=== PATIENT | male | born 1950 | race African-American/Black ===

== ENCOUNTER 2018-02-26 09:46 | Outpatient (RCR) | payer MEDICARE, BC ==
[~2018-02-26] VITALS: Ht 193 cm; Wt 113.4 kg
[2018-03-06] MEDS ORDERED: Lidocaine 4% Top Soln 50ml TOPIC ONE (10:45)
== END 2018-03-15 | disposition home or self-care (01) ==
LOC: WCC 09:46
DX: T86.821 Skin graft (allograft) (autograft) failure (principal); E11.22 Type 2 diabetes mellitus with diabetic chronic kidney disease; E11.59 Type 2 diabetes mellitus with other circulatory complications; I73.89 Other specified peripheral vascular diseases; N18.6 End stage renal disease; J44.9 Chronic obstructive pulmonary disease, unspecified; F17.200 Nicotine dependence, unspecified, uncomplicated; L97.812 Non-pressure chronic ulcer of other part of right lower leg with fat layer exposed; Z87.891 Personal history of nicotine dependence; Z99.2 Dependence on renal dialysis; Z85.46 Personal history of malignant neoplasm of prostate; I13.2 Hypertensive heart and chronic kidney disease with heart failure and with stage 5 chronic kidney disease, or end stage renal disease; I50.9 Heart failure, unspecified; F31.9 Bipolar disorder, unspecified; E11.621 Type 2 diabetes mellitus with foot ulcer
CPT/HCPCS: 11043; 11046; 82962; G0277; G0463

== ENCOUNTER 2018-02-27 09:24 | Outpatient (CLI) | payer MEDICARE, BC ==
--- NOTE | 2018-02-27 13:46 | Diagnostic Imaging Report ---
Indication: Cough Technique: 2 views of the chest Comparison: None Findings: There is bilateral diffuse interstitial and airspace edema versus infiltrates. The heart is enlarged. The pleural spaces are clear. Impression: Bilateral interstitial and airspace infiltrates versus edema Cardiomegaly
--- NOTE | 2018-02-27 16:33 | Cardiology Report ---
APPROVED REPORT EKG Measurement Heart [id number] Normal sinus rhythm Possible Left atrial enlargement Left axis deviation Abnormal ECG
== END 2018-02-27 11:24 | disposition home or self-care (01) ==
LOC: RAD 09:24
DX: J44.9 Chronic obstructive pulmonary disease, unspecified (principal); I50.9 Heart failure, unspecified
CPT/HCPCS: 71046; 93005

== ENCOUNTER 2018-03-19 14:14 | Outpatient (RCR) | payer MEDICARE, BC | END 2018-04-15 | disposition home or self-care (01) | LOC: WCC 14:14 | DX: T86.821 Skin graft (allograft) (autograft) failure (principal); E11.621 Type 2 diabetes mellitus with foot ulcer; E11.22 Type 2 diabetes mellitus with diabetic chronic kidney disease; E11.59 Type 2 diabetes mellitus with other circulatory complications; N18.6 End stage renal disease; Z99.2 Dependence on renal dialysis; Z85.46 Personal history of malignant neoplasm of prostate; G47.30 Sleep apnea, unspecified; F31.9 Bipolar disorder, unspecified; I13.2 Hypertensive heart and chronic kidney disease with heart failure and with stage 5 chronic kidney disease, or end stage renal disease; I50.9 Heart failure, unspecified; Z89.012 Acquired absence of left thumb; Z89.022 Acquired absence of left finger(s) | CPT/HCPCS: 11043; 11046; 87070; 87181; 87205; 97605 ==

== ENCOUNTER 2018-03-26 16:00 | Outpatient (CLI) | payer MEDICARE, BC ==
--- NOTE | 2018-03-26 22:15 | Consultation ---
DATE OF CONSULTATION: 03/26/2018 INFECTIOUS DISEASE CONSULTATION CONSULTING PHYSICIAN: Jaime Casey M.D. REQUESTING PHYSICIAN: Michael Raygoza D.P.M. REASON FOR CONSULTATION: Left metatarsal surgical wound infection with failing flap and possible underlying metatarsal bone osteomyelitis with infection due to Klebsiella oxytoca, Enterobacter cloacae complex, and Staph aureus, methicillin-sensitive. Recommendation for antibiotics treatment. 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 The patient did his surgery at [facility]. He was on intravenous vancomycin at the time when he had his surgery. After surgery, the patient had skin flap to close his wound and he was discharged to rehabilitation on 7 days of oral Keflex as per his report. The patient started having swelling and pain at the left metatarsal area. His wound has dehisced and started draining serosanguineous fluid with no odor, so he was seen by Dr. Raygoza in the [facility]. He underwent surgical debridement of the failed skin flap with getting good granulation tissue at the base. Culture was sent from the debridement and the result of which grew Klebsiella oxytoca, Enterobacter cloacae complex multidrug resistant, and Staph aureus methicillin-sensitive. So, Infectious Disease consultation was requested for antibiotics treatment and further management. The patient currently denied any significant pain in the left foot or drainage. He has mild swelling. But, no skin redness or erythema. No fever or chills. No other associated symptoms. REVIEW OF SYSTEMS: A 14-point of system reviewed were all negative apart from the one I mentioned above in my History and Physical. PAST MEDICAL HISTORY: Significant for diabetes type 2 with complication, diabetic nephropathy, chronic kidney disease, end-stage renal disease, on hemodialysis, and left foot osteomyelitis status post transmetatarsal amputation with skin flap failure. PAST SURGICAL HISTORY: He had a fistula placement in his left thigh and right upper arm, which failed before. He had left transmetatarsal foot amputation on 01/24/2018. MEDICATIONS: Please refer to the medical record. ALLERGIES: He has no known drug allergy. FAMILY HISTORY: Not contributory. SOCIAL HISTORY: The patient lives at home with . Unemployed. On disability. No recent drugs, tobacco, or alcohol. PHYSICAL EXAMINATION: VITAL SIGNS: Reviewed and stable. GENERAL: A middle-aged male, lying in bed, awake, alert, oriented, and not in acute distress. HEENT: Normocephalic and atraumatic. Pupils reactive to light. Moist oral mucosa. No exudate. NECK: Supple. No lymphadenopathy. CARDIOVASCULAR: Regular rate and rhythm. No murmur or gallop. LUNGS: Clear bilaterally. Diminished breathing sounds at the bases. ABDOMEN: Soft. Nontender. Nondistended. Normal bowel sounds. No hepatosplenomegaly. No ascites. EXTREMITIES: He had left foot metatarsal amputation surgical wound open with excellent granulation tissue at the base and bleeding. No pus or significant discharge. No skin erythema or swelling. Right foot has some superficial wound. LABORATORY DATA: There is no laboratories available recently. IMAGING: The patient is going to have MRI of his left foot today. Chest x-ray, which he had done on 02/27/2018 showed bilateral interstitial and airspace infiltrates versus edema with cardiomegaly. ASSESSMENT AND RECOMMENDATION: 1. Left metatarsal surgical wound infection due to MSSA, Enterobacter cloacae, and Klebsiella oxytoca. The patient had surgical debridement for SIRS control. We will start him on cefazolin after hemodialysis for two weeks average pending his MRI. We will also add ertapenem daily to cover for his Enterobacter cloacae and Klebsiella oxytoca for two weeks still. We will extend his antibiotics duration if there is evidence of underlying osteomyelitis of the metatarsal bone. Continue local wound care and dressing as per facilities planner. 2. Left metatarsal skin flap failure suspect due to infection due to previous organism I mentioned above. We will start the patient on ertapenem 0.5 gram daily IM and cefazolin 2 gram after each hemodialysis except Sunday when he gets 3 gram after his hemodialysis for two weeks average pending MRI of the left foot. 3. Possible left metatarsal bone osteomyelitis due to the above organism. The patient is going to have MRI today, which will determine whether he had any evidence of bone infection. We will plan to extend his antibiotics duration of treatment to 6 weeks if there is evidence of osteo. Continue wound VAC and local wound care as needed as per Podiatry. 4. End-stage renal disease, on hemodialysis. Nephrology is following. 5. Diabetes with complication. Recommend tight glycemic control to keep blood glucose between 80 to 130. Thank you for the consult. ID will continue to follow. Please feel free to call with any question. Jaime Casey M.D. DR: ADALBERTO JOB#: [id number] CC:
--- NOTE | 2018-03-27 11:35 | Diagnostic Imaging Report ---
Indication: 67-year-old male outpatient with recent toe amputation, swelling and pain, open wounds on both sides of the foot Technique: Coronal, axial, sagittal T1 fast spin echo and fast spin echo STIR images obtained of the foot Comparison: none Findings: Patient is status post transmetatarsal amputation. Increased STIR signal is seen in all of the distal metatarsal stumps, more striking in the first digit. There is associated T1 signal abnormality in the distal first metatarsal stump, equivocal minimal T1 signal abnormality at the most distal portions of the stump of the other digits. There is diffuse edema of the deep muscular compartment, particularly on the plantar side, less extensive edema of the skin and subcutaneous fat. A single tiny discrete fluid collection is seen in the deep hindfoot just plantar to the bones and adjacent to the flexor tendons, measures 13 x 7 x 8 mm. No other discrete fluid collections are demonstrated. The large tendons appear to be intact. There are degenerative changes of the talocalcaneal joint, with degenerative subchondral cysts within the talus. Fluid is seen surrounding several flexor tendons Impression: Postsurgical changes, as described Abnormal STIR signal in the distal metatarsal stumps. No definite associated T1 signal abnormality except in the first metatarsal stump. Findings are most likely reactive related to the recent surgery. Early osteomyelitis changes not completely excludable however. Diffuse edema, probably of the plantar deep muscular compartment. Could be reactive related to recent surgery, but could also indicate myositis. There is also much less extensive edema of the skin and subcutaneous fat, mostly on the plantar surface 13 x 7 x 8 mm fluid collection in the deep muscular compartment, as described. Suspect that this represents a small cyst or ganglion related to the adjacent tendon, but tiny abscess collection not completely excludable. Fluid in multiple flexor tendon sheaths, may reflect tenosynovitis. Degenerative changes of the talocalcaneal joint
== END 2018-03-26 18:00 | disposition home or self-care (01) ==
LOC: MRI 16:00
DX: M86.8X7 Other osteomyelitis, ankle and foot (principal)

== ENCOUNTER 2018-04-23 14:36 | Outpatient (RCR) | payer MEDICARE, BC ==
[2018-04-23] MEDS ORDERED: TAMSULOSIN HCL0.4 MG ORAL (16:45)
[2018-04-23] MEDS ORDERED: GABAPENTIN300 MG ORAL (16:45)
[2018-04-23] MEDS ORDERED: LOSARTAN POTASS50 MG ORAL (16:45)
[2018-04-23] MEDS ORDERED: CATAPRES0.2 MG ORAL (16:45)
[2018-04-23] MEDS ORDERED: PROSCAR5 MG ORAL (16:45)
[2018-04-23] MEDS ORDERED: SENSIPAR30 MG ORAL (16:45)
[2018-04-23] MEDS ORDERED: ELIQUIS5 MG PO (16:45)
[2018-04-23] MEDS ORDERED: ALLOPURINOL300 M1 ORAL (16:45)
[2018-04-23] MEDS ORDERED: RENA-VITE TABL0.8 M1 PO (16:46)
[2018-04-23] MEDS ORDERED: FUROSEMIDE80 M1 ORAL (17:02)
[2018-04-23] MEDS ORDERED: AMLODIPINE BESYL5 MG ORAL (17:02)
[2018-04-23] MEDS ORDERED: CARVEDILOL12.5 MG ORAL (17:02)
== END 2018-05-16 | disposition home or self-care (01) ==
LOC: WCC 14:36
DX: T86.821 Skin graft (allograft) (autograft) failure (principal); E11.621 Type 2 diabetes mellitus with foot ulcer; E11.22 Type 2 diabetes mellitus with diabetic chronic kidney disease; E11.59 Type 2 diabetes mellitus with other circulatory complications; M86.172 Other acute osteomyelitis, left ankle and foot; L03.116 Cellulitis of left lower limb; Z87.891 Personal history of nicotine dependence; N18.6 End stage renal disease; Z85.46 Personal history of malignant neoplasm of prostate; G47.30 Sleep apnea, unspecified; F31.9 Bipolar disorder, unspecified; I13.2 Hypertensive heart and chronic kidney disease with heart failure and with stage 5 chronic kidney disease, or end stage renal disease; I50.9 Heart failure, unspecified
CPT/HCPCS: G0463

== ENCOUNTER 2018-04-23 16:00 | Inpatient (IN) | payer MEDICARE, BC ==
[~2018-04-23] VITALS: Ht 170.2 cm; Wt 126.9 kg
--- NOTE | 2018-04-23 16:14 | NUR ---
ED Nurse Note: Pt came from MD appointment. Dr. Baron sent him due to left foot being infected. Pt was supposed to get a wound vac for his left foot today. Complaining of SOB x 1 week. A + O x4. Hx of COPD, DM and ESRD. Pt attends dialysis T, Th, and Sat. Had dialysis today. Catheter for dialysis located on the left leg. Comlpaining of 10/10 left foot pain. Non radiating.
--- NOTE | 2018-04-23 16:37 | Emergency Room Report ---
History of Present Illness General Chief Complaint: General Complaint Source: Patient Present Illness HPI 67-year-old male with end-stage renal disease diabetes presenting with left diabetic foot ulcer infection. Since that ulcer started in February. He has toes amputated at that time too. Had a wound VAC starting point, but still not getting better. He was brought from podiatry for admission for IV antibiotics. Denying any fever any chills. So that he does have chronic shortness of breath. No coughing no chest pain. Last dialysis was today Allergies: Coded Allergies: NO KNOWN DRUG ALLERGIES (Verified Allergy, Unknown, 03/06/18) Patient History Past Medical History: see triage record Past Surgical History: none Pertinent Family History: none Reviewed Nursing Documentation: PMH: Agreed; PSxH: Agreed Nursing Documentation-PMH Past Medical History: No History, Except For Hx Hypertension: Yes Hx COPD: Yes Hx Diabetes: Yes Hx Dialysis: Yes - T-Th-Sat Review of Systems All Other Systems: negative except mentioned in HPI Physical Exam Vital Signs Date Time Temp Pulse Resp B/P (MAP) Pulse Ox O2 Delivery O2 Flow Rate FiO2 04/23/18 16:14 98 25 138/73 96 Nasal Cannula 3.0 Sp02 EP Interpretation: reviewed, normal General Appearance: alert, GCS 15, non-toxic, mild distress Head: normocephalic, atraumatic Eyes: bilateral eye normal inspection, bilateral eye PERRL, bilateral eye EOMI ENT: normal ENT inspection, normal pharynx, normal voice, moist mucus membranes Neck: normal inspection, full range of motion, supple Respiratory: other - Speaking complete sentences, decreased breath sounds bilaterally mildly, no tachypnea Cardiovascular #1: tachycardia Cardiovascular #2: 2+ radial (R), 2+ radial (L) Gastrointestinal: normal inspection, non tender, soft, non-distended, no guarding Musculoskeletal: other - Left diabetic foot ulceration, status post on dictation of all toes, looks acutely infected with erythema and drainage Neurologic: normal inspection, alert, oriented x3, responsive, motor strength/ tone normal, sensory intact, normal gait, speech normal Psychiatric: normal inspection, judgement/insight normal, memory normal Skin: normal inspection, normal color, no rash, warm/dry, well hydrated, normal turgor Medical Decision Making Diagnostic Impression: Primary Impression: Diabetic foot infection Additional Impression: ESRD (end stage renal disease) ER Course 67-year-old male with left foot diabetic ulcer infection, osteomyelitis DDX: Infected diabetic foot, with history of osteomyelitis Plan: Obtain labs, ua, EKG, CXR IV antibiotics ER course: Patient has been monitored during ED stay Tachycardic around 100 Fluids held due to patient having end-stage renal disease Dr. Raygoza from podiatry is aware of patient and sent him in, also set an infectious diseases doctor will be putting in orders for antibiotics Disposition: Patient is to be admitted to [facility] D/W hospitalist Dr Beckman Please note that this Emergency Department Report was dictated using Infrascaledrama professor technology software, occasionally this can lead to erroneous entry secondary to interpretation by the dictation equipment. EKG Diagnostic Results EP Interpretation: Yes Rate:101 Rhythm: NSR ST Segments: T-wave inversions aVL only ASA given to patient: No Rhythm Strip EP Interpretation: Yes Rate: 101 Rhythm: NSR, no PVCs, no ectopy Chest X-ray CXR: Ordered: Yes 1 view Indication: sob EP interpretation: Yes Interpretation: Cardiomegaly with pulmonary vascular congestion Impression: Cardiomegaly with pulmonary vascular congestion Electronically signed by Anahi Jin MD Laboratory Tests Test 04/23/18 16:40 White Blood Count 5.6 K/UL (4.8-10.8) Red Blood Count 2.84 M/UL (4.70-6.10) L Hemoglobin 8.2 G/DL (14.2-18.0) L Hematocrit 26.4 % (42.0-52.0) L Mean Corpuscular Volume 93 FL (80-99) Mean Corpuscular Hemoglobin 29.0 PG (27.0-31.0) Mean Corpuscular Hemoglobin Concent 31.2 G/DL (32.0-36.0) L Red Cell Distribution Width 19.5 % (11.6-14.8) H Platelet Count 66 K/UL (150-450) L Mean Platelet Volume 7.6 FL (6.5-10.1) Neutrophils (%) (Auto) % (45.0-75.0) Lymphocytes (%) (Auto) % (20.0-45.0) Monocytes (%) (Auto) % (1.0-10.0) Eosinophils (%) (Auto) % (0.0-3.0) Basophils (%) (Auto) % (0.0-2.0) Differential Total Cells Counted 100 Neutrophils % (Manual) 76 % (45-75) H Lymphocytes % (Manual) 13 % (20-45) L Monocytes % (Manual) 7 % (1-10) Eosinophils % (Manual) 2 % (0-3) Basophils % (Manual) 0 % (0-2) Band Neutrophils 2 % (0-8) Platelet Estimate Decreased L Platelet Morphology Normal Polychromasia 1+ Hypochromasia 2+ Anisocytosis 1+ Sodium Level 139 MMOL/L (136-145) Potassium Level 3.6 MMOL/L (3.5-5.1) Chloride Level 100 MMOL/L (98-107) Carbon Dioxide Level 30 MMOL/L (21-32) Anion Gap 9 mmol/L (5-15) Blood Urea Nitrogen 36 mg/dL (7-18) H Creatinine 5.5 MG/DL (0.55-1.30) H Estimate Glomerular Filtration Rate 12.7 mL/min (>60) Glucose Level 151 MG/DL (74-106) H Lactic Acid Level 1.70 mmol/L (0.4-2.0) Calcium Level 9.6 MG/DL (8.5-10.1) Total Bilirubin 0.4 MG/DL (0.2-1.0) Aspartate Amino Transferase (AST) 19 U/L (15-37) Alanine Aminotransferase (ALT) 17 U/L (12-78) Alkaline Phosphatase 134 U/L (46-116) H Troponin I 0.047 ng/mL (0.000-0.056) Total Protein 7.3 G/DL (6.4-8.2) Albumin 3.1 G/DL (3.4-5.0) L Globulin 4.2 g/dL Albumin/Globulin Ratio 0.7 (1.0-2.7) L Last Vital Signs Date Time Temp Pulse Resp B/P (MAP) Pulse Ox O2 Delivery O2 Flow Rate FiO2 04/23/18 16:14 98 25 138/73 96 Nasal Cannula 3.0 Disposition: ADMITTED INPATIENT Condition: Anahi Jerry M.D. Apr 23, 2018 16:37
[2018-04-23] MEDS ORDERED: GABAPENTIN300 MG ORAL (16:45)
[2018-04-23] MEDS ORDERED: TAMSULOSIN HCL0.4 MG ORAL (16:45)
[2018-04-23] MEDS ORDERED: LOSARTAN POTASS50 MG ORAL (16:45)
[2018-04-23] MEDS ORDERED: SENSIPAR30 MG ORAL (16:45)
[2018-04-23] MEDS ORDERED: PROSCAR5 MG ORAL (16:45)
[2018-04-23] MEDS ORDERED: ALLOPURINOL300 M1 ORAL (16:45)
[2018-04-23] MEDS ORDERED: ELIQUIS5 MG PO (16:45)
[2018-04-23] MEDS ORDERED: CATAPRES0.2 MG ORAL (16:45)
[2018-04-23] MEDS ORDERED: RENA-VITE TABL0.8 M1 PO (16:46)
--- NOTE | 2018-04-23 16:46 | NUR ---
ED Nurse Note: Xray at the bedside.
[2018-04-23 16:50] VITALS: BP 138/73
[2018-04-23 16:54] LABS: HEMATOCRIT 26.4 % (42.0-52.0); HEMOGLOBIN 8.2 G/DL (14.2-18.0); MEAN CORPUSCULAR VOLUME 93 FL (80-99); PLATELET COUNT 66 K/UL (150-450); RED BLOOD COUNT 2.84 M/UL (4.70-6.10); RED CELL DISTRIBUTION WIDTH 19.5 % (11.6-14.8); WHITE BLOOD COUNT 5.6 K/UL (4.8-10.8)
--- NOTE | 2018-04-23 16:56 | NUR ---
ED Nurse Note: Notified MD that pt cannot provide urine.
--- NOTE | 2018-04-23 16:56 | NUR ---
ED Nurse Note: Pt is [place].
--- NOTE | 2018-04-23 16:57 | Diagnostic Imaging Report ---
Indication: Chest pain Comparison: 02/27/2018 A single view chest radiograph was obtained. Findings: Pulmonary vascular congestion and interstitial edema demonstrated with cardiomegaly. No pleural effusion seen. Bones are unremarkable. IMPRESSION: Congestive heart failure
[2018-04-23] MEDS ORDERED: AMLODIPINE BESYL5 MG ORAL (17:02)
[2018-04-23] MEDS ORDERED: FUROSEMIDE80 M1 ORAL (17:02)
[2018-04-23] MEDS ORDERED: CARVEDILOL12.5 MG ORAL (17:02)
[2018-04-23 17:24] LABS: ANION GAP 9 mmol/L (5-15); BLOOD UREA NITROGEN 36 mg/dL (7-18); CALCIUM 9.6 MG/DL (8.5-10.1); CARBON DIOXIDE 30 MMOL/L (21-32); CHLORIDE 100 MMOL/L (98-107); CREATININE 5.5 MG/DL (0.55-1.30); POTASSIUM 3.6 MMOL/L (3.5-5.1); SODIUM 139 MMOL/L (136-145)
[2018-04-23 17:32] LABS: ALANINE AMINOTRANSFERASE 17 U/L (12-78); ALBUMIN 3.1 G/DL (3.4-5.0); ALBUMIN/GLOBULIN RATIO 0.7 (1.0-2.7); ALKALINE PHOSPHATASE 134 U/L (46-116); ASPARTATE AMINO TRANSFERASE 19 U/L (15-37); BILIRUBIN,TOTAL 0.4 MG/DL (0.2-1.0)
[2018-04-23] MEDS ORDERED: Meropenem 1 GM in NS 55 ML IVPB SCH (18:15)
[2018-04-23] MEDS ORDERED: Meropenem 1gm vial ONE (18:21)
--- NOTE | 2018-04-23 18:37 | NUR ---
ED Nurse Note: Gave telephoen report to CLEVE Almanzar. Bed unavailable. Pt about to go down for MRI.
--- NOTE | 2018-04-23 18:47 | Consultation ---
Consult Note Consult Note INFECTIOUS DISEASE CONSULTATION CONSULTING PHYSICIAN: Jaime Casey M.D. REQUESTING PHYSICIAN: Michael Raygoza D.P.M. REASON FOR CONSULTATION: Left metatarsal surgical wound infection with Klebsiella oxytoca, Enterobacter cloacae complex, and Staph aureus, methicillin- sensitive due to failing flap and possible underlying metatarsal bone osteomyelitis, and new Achillis open tendon wound . Recommendation for antibiotics treatment. 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 The patient had his surgery at [facility]. He was on intravenous vancomycin at the time when he had his surgery. After surgery, the patient had skin flap to close his wound and he was discharged to rehabilitation on 7 days of oral Keflex as per his report. The patient started having swelling and pain at the left metatarsal area. His wound has dehisced and started draining serosanguineous fluid with no odor, so he was seen by Dr. Raygoza in the [facility]. He underwent surgical debridement of the failed skin flap with getting good granulation tissue at the base. Culture was sent from the debridement and the result of which grew Klebsiella oxytoca, Enterobacter cloacae complex multidrug resistant, and Staph aureus methicillin-sensitive. so, Infectious Disease consultation was requested for antibiotics treatment and further management. patient was started on cefazolin after hid HD for MSSA, and Ertapenem IM to cover the rest of the bacteria which grew out of his stump wound , but his insurance denied it , and he couldn't get it . other antibiotics were not an option to be used since he is HD and has significant side effects . today he was seen in wound care clinic and he was found to have new wounds on his anterior lower tibia and one in the back on his Achillis tendon, so he was sent to ED to be admitted for further evaluation , and I was consulted by Dr Wagner for antibiotics treatment and further care. The patient currently has mild pain in the left foot , no drainage or foul smell . He has mild swelling. with skin redness . No fever or chills. No other associated symptoms. REVIEW OF SYSTEMS: A 14-point of system reviewed were all negative apart from the one I mentioned above in my History and Physical. PAST MEDICAL HISTORY: Significant for diabetes type 2 with complication, diabetic nephropathy, chronic kidney disease, end-stage renal disease, on hemodialysis, and left foot osteomyelitis status post transmetatarsal amputation with skin flap failure. PAST SURGICAL HISTORY: He had a fistula placement in his left thigh and right upper arm, which failed before. He had left transmetatarsal foot amputation on 01/24/2018. MEDICATIONS: cefazoline 2 gm iv after HD . for the rest Please refer to the medical record. ALLERGIES: He has no known drug allergy. FAMILY HISTORY: Not contributory. SOCIAL HISTORY: The patient lives at home with . Unemployed. On disability. No recent drugs, tobacco, or alcohol. PHYSICAL EXAMINATION: VITAL SIGNS: Reviewed and stable. GENERAL: A middle-aged male, lying in bed, awake, alert, oriented, and not in acute distress. HEENT: Normocephalic and atraumatic. Pupils reactive to light. Moist oral mucosa. No exudate. NECK: Supple. No lymphadenopathy. CARDIOVASCULAR: Regular rate and rhythm. No murmur or gallop. LUNGS: Clear bilaterally. Diminished breathing sounds at the bases. ABDOMEN: Soft. Nontender. Nondistended. Normal bowel sounds. No hepatosplenomegaly. No ascites. EXTREMITIES: He had left foot metatarsal amputation surgical wound open with good granulation tissue at the base and small exudate. No pus or significant discharge. lower anterior tibial wounds , and posterior achillis tendon open wound mild skin erythema and swelling. Right foot has some superficial wound. LABORATORY DATA: wbc 5.6, hg 8.2, plt 66. IMAGING: MRI of his left foot on 03/27/18: Postsurgical changes, as described Abnormal STIR signal in the distal metatarsal stumps. No definite associated T1 signal abnormality except in the first metatarsal stump. Findings are most likely reactive related to the recent surgery. Early osteomyelitis changes not completely excludable however. Diffuse edema, probably of the plantar deep muscular compartment. Could be reactive related to recent surgery, but could also indicate myositis. There is also much less extensive edema of the skin and subcutaneous fat, mostly on the plantar surface 13 x 7 x 8 mm fluid collection in the deep muscular compartment, as described. Suspect that this represents a small cyst or ganglion related to the adjacent tendon, but tiny abscess collection not completely excludable. Fluid in multiple flexor tendon sheaths, may reflect tenosynovitis. Degenerative changes of the talocalcaneal joint Chest x-ray, which he had done on 02/27/2018 showed bilateral interstitial and airspace infiltrates versus edema with cardiomegaly. Assessment/Plan ASSESSMENT AND RECOMMENDATION: 1. Left metatarsal surgical wound infection due to MSSA, Enterobacter cloacae, and Klebsiella oxytoca. The patient had surgical debridement previously for source control. We will start him on vancomycin and meropenem will order MRI of the left foot to evaluate for osteomyelitis of the metatarsal bone. Continue local wound care and dressing as per concrete handler. 2. Possible left metatarsal bone osteomyelitis due to the above organism. I will order MRI today to evaluate for any evidence of bone infection. 3. left Achillis tendon open wound : continue wide spectrum antibiotics and local wound care with off loading, podiatry eval 4. End-stage renal disease, on hemodialysis. Nephrology is following. 5. Diabetes with complication. Recommend tight glycemic control to keep blood glucose between 80 to 130. 6. PVD recommend vascular eval for possible angioplasty Thank you for the consult. ID will continue to follow. Please feel free to call with any question. Jaime Casey M.D. Apr 23, 2018 18:47
--- NOTE | 2018-04-23 19:13 | NUR ---
HAND-OFF: Report given to CLEVE Perez.
--- NOTE | 2018-04-23 19:15 | NUR ---
NURSE NOTES: Report taken from CLEVE Almanzar. patient still in MRI.
--- NOTE | 2018-04-23 20:05 | NUR ---
NURSE NOTES: Patient arrived to unit with enrike Connors, via hospital bed. Patient at bedside. Patient alert and oriented. On 2L NC, gets SOB with exertion and at rest, needs head of bed elevated to aid with breathing. States having 9/10 pain, but is tolerable. Dressing c/d/i. IV c/d/i and patent. Called MD for orders, awaiting call back.
[2018-04-23] MEDS ORDERED: VANCOMYCIN IVPB ONE (22:00)
[2018-04-23] MEDS ORDERED: SODIUM CHLORIDE IVPB ONE (22:00)
[2018-04-23] MEDS: Meropenem 500mg/NS 55ml IVPB SCH ×2 (22:08)
[2018-04-23] MEDS: Albuterol/Ipratropium 3ml neb HHN SCH (23:00)
[2018-04-23] MEDS: HYDROcodone/Acetamin 10/325 tab ORAL PRN (23:35)
[2018-04-23] MEDS: Tamsulosin 0.4mg cap ORAL SCH (23:35)
[2018-04-23] MEDS: cloNIDine 0.2mg Tab ORAL SCH (23:36)
--- NOTE | 2018-04-23 23:44 | History and Physical Report ---
DATE OF ADMISSION: 04/23/2018 HISTORY OF PRESENT ILLNESS: The patient is a 67-year-old gentleman with history of type 2 diabetes, history of renal failure on dialysis, history of peripheral vascular disease, and history of osteomyelitis. He is status post surgery to his amputation to his toes in the lower extremity, and is followed by Dr. Raygoza, was sent in secondary to left metatarsal surgical wound infection with multiple organisms due to failing flap with possible underlying metatarsal bone osteomyelitis and new Achilles open tendon wound. The patient denies any fevers or chills. He did undergo the amputation on 01/24/2018 due to severely infected toes with osteomyelitis at [facility]. He was treated there with vancomycin and had a skin flap placed to close the wound and was discharged on Keflex. When he afterwards he went home he had swelling and pain with dehiscence of the wound with drainage and was seen by Dr. Raygoza at the wound care clinic. He underwent surgical debridement and cultures were sent, which revealed multiple organisms. The patient is being admitted for IV antibiotics. PAST MEDICAL HISTORY: Significant for history of renal failure on dialysis, history of osteomyelitis of his left foot, history of transmetatarsal amputation with skin flap failure, history of obstructive sleep apnea, history of type 2 diabetes mellitus, history of diabetic neuropathy, and history of heart failure. He has a fistula in the left thigh and right upper arm, which failed before. He had left metatarsal foot amputation on 01/24/2018. MEDICATIONS: Medications he is on, please see his reconciled medication list. He was receiving cefazolin after hemodialysis. ALLERGIES: No known drug allergies. FAMILY HISTORY: Noncontributory. SOCIAL HISTORY: The patient does not drink alcohol or use drugs. Does not smoke. PHYSICAL EXAMINATION: GENERAL: He is well developed and well nourished, currently in no apparent distress. VITAL SIGNS: Stable. HEENT: Head is normocephalic and atraumatic. Pupils are equal and reactive to light. Extraocular muscles are intact. Eyes are anicteric. NECK: Supple. No JVP. LUNGS: Clear. He has got decreased breath sounds at the bases. ABDOMEN: Soft. Positive bowel sounds. Nondistended and nontender. EXTREMITIES: Left foot metatarsal amputation surgical wound open with good granulation tissue at the bases and slight exudate. No pus or significant discharge. He does have lower anterior tibial wounds and posterior Achilles tendon open wound. He has some erythema and swelling to right foot. 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 LABORATORY DATA: Labs revealed a white count of 5.6, hemoglobin 8.2, hematocrit 26.4, and platelet count 66,000. Sodium 139, potassium 3.6, BUN 36, and creatinine 5.5. Glucose 151. Chest x-ray reveals CHF. EKG noted. ASSESSMENT AND PLAN: The patient is a 67-year-old gentleman with history of diabetes, renal failure, diabetic neuropathy, history of left foot wound, and possible osteo, has been admitted for IV antibiotics. He has been seen by Dr. Casey from Infectious Disease. He does have anemia and is thrombocytopenic with platelet count 66,000. We will monitor for now. In terms of his obstructive sleep apnea, he uses CPAP at night. I will ask also Pulmonary to see him. In terms of his congestive heart failure, we will get a 2-D echo, place him on a monitored bed. I have asked Dr. Perdomo from Cardiology to see him as well. The patient should be on DVT and ulcer prophylaxes. Dr. Raygoza, his bobbin collector will be following him as well. Moe Sewell M.D. DR: SHAVON JOB#: [id number] CC:
[2018-04-24 01:16] VITALS: BP 161/96
[2018-04-24] MEDS: Albuterol/Ipratropium 3ml neb HHN SCH ×6 (03:39→19:42)
[2018-04-24] MEDS: NovoLOG Insulin Flexpen SUBQ SCH ×4 (06:30→21:14)
--- NOTE | 2018-04-24 07:43 | NUR ---
HAND-OFF: Report given to CLEVE Abdi.
[2018-04-24 07:48] LABS: HEMATOCRIT 26.9 % (42.0-52.0); HEMOGLOBIN 8.2 G/DL (14.2-18.0); MEAN CORPUSCULAR VOLUME 95 FL (80-99); PLATELET COUNT 63 K/UL (150-450); RED BLOOD COUNT 2.83 M/UL (4.70-6.10); RED CELL DISTRIBUTION WIDTH 18.8 % (11.6-14.8); WHITE BLOOD COUNT 4.5 K/UL (4.8-10.8)
[2018-04-24 08:00] VITALS: BP 143/82
--- NOTE | 2018-04-24 08:00 | NUR ---
NURSE NOTES: Received report from Talib POON. On rounds, patient is awake alert and oriented x4, laying semi rich. Dyspnea with exertion noted, on 2L NC. Assessed left foot wound dressing, c/d/i. Per report from nightshift, pictures were taken. IV running Vanco. Side rails upx2, bed low and locked, call light in reach. Will continue to monitor.
[2018-04-24 08:13] LABS: ALBUMIN 2.8 G/DL (3.4-5.0); ALBUMIN/GLOBULIN RATIO 0.7 (1.0-2.7); ALKALINE PHOSPHATASE 127 U/L (46-116); ANION GAP 10 mmol/L (5-15); ASPARTATE AMINO TRANSFERASE 20 U/L (15-37); BILIRUBIN,TOTAL 0.5 MG/DL (0.2-1.0); BLOOD UREA NITROGEN 45 mg/dL (7-18); CALCIUM 8.8 MG/DL (8.5-10.1); CARBON DIOXIDE 29 MMOL/L (21-32); CHLORIDE 100 MMOL/L (98-107); CHOLESTEROL 94 MG/DL (< 200); CREATININE 6.7 MG/DL (0.55-1.30); HDL CHOLESTEROL 51 MG/DL (40-60); POTASSIUM 4.1 MMOL/L (3.5-5.1); SODIUM 139 MMOL/L (136-145); TRIGLYCERIDES 49 MG/DL (30-150)
--- NOTE | 2018-04-24 08:18 | NUR ---
NURSE NOTES: Called Dr. Sewell and informed MD that troponin is 0.057. MD aware, no further orders given at this time. Will continue to monitor.
[2018-04-24 08:20] LABS: ALANINE AMINOTRANSFERASE 6 U/L (12-78)
--- NOTE | 2018-04-24 08:45 | NUR ---
HAND-OFF: Patient transferred to med/surg 4E. Report given to Keith POON.
--- NOTE | 2018-04-24 08:46 | NUR ---
NURSE NOTES: Received patient from , patient is alert and oriented x4. On oxygen @ 2L/min via NC. Patient uses Bi pap @ night. Complains of mild generalized body pain but does not need pain meds @ this time. He will let nurse know when he needs pain med. Re-orientation given to the patient about the unit, call light, restroom use, meal time, plan of care, etc. IV intact, no s/s of infiltration. No belongings received. Skin assessment done noted with open wound on left foot stump with whitish,reddish color and left ankle (back) open wound and lower ex's open wound and noted with amputated right hand fingers, right arm with healed surgical wound and femoral dialysis access. Wound picture was taken and protocol wound care done. Bed is in lowest position and locked. Call light within reach. Will continue plan of care.
--- NOTE | 2018-04-24 09:44 | Diagnostic Imaging Report ---
Indication: Left foot infection, wounds near surgical site status post amputation, new wound on the back of the heel Technique: Axial, sagittal, coronal T1 fast spin echo and FSE STIR images of the foot Comparison: 03/26/2018. No plain radiographic comparison studies Findings: Again demonstrated is evidence of prior transmetatarsal amputation. There is increased STIR signal in the distal first metatarsal stump, with associated focal decreased T1 signal. Similar finding is seen in the distal fifth metatarsal stump. The signal abnormality of the first metatarsal appears similar to the previous exam. The signal abnormality in the fifth metatarsal appears increased, with in particular increased T1 signal abnormality and suggestion of possible erosion of the distal end. STIR signal abnormalities of the distalmost second third and fourth metatarsals are again demonstrated, without evidence of T1 signal abnormality. Gas bubbles are seen in the soft tissues adjacent to the first metatarsal stump and distal to the second metatarsal stump. Well-circumscribed foci of signal abnormality are again demonstrated in the talus, appearing similar to the prior exam. No other marrow signal abnormality is demonstrated. Edema of the muscular compartment appears similar to the previous exam. There is suggestion of increased edema of the subcutaneous fat of the stump. Previously demonstrated fluid collection medial to the distal calcaneus has decreased in size. Impression: Postsurgical changes, as described T1 and STIR signal abnormality of the distal fifth metatarsal stump appear to be increased from the previous study, with suggestion of some bone loss on the current exam. This is concerning for osteomyelitis. T1 and STIR signal abnormality of the distal first metatarsal stump, unchanged from prior exam of 03/26/2028. This may be reactive from prior surgery or could indicate acute osteomyelitis. Interim development of gas bubbles in the soft tissue stump distal to the first metatarsal bony stump is could indicate a penetrating ulcer or could indicate infection with gas-forming organism. There is also slightly increased edema of the subcutaneous fat in this region compared to prior study, may indicate progressive cellulitis changes Persistent edema of the muscular compartment, likely myositis given history of foot infection Markedly decreased small soft tissue collections medial to the calcaneus, since prior exam of March 2018
[2018-04-24] MEDS: Pantoprazole Inj IVP SCH (10:13)
[2018-04-24] MEDS: Allopurinol 100mg Tab ORAL SCH (10:13)
[2018-04-24] MEDS: Nephrovite tab (Rena-Vite) ORAL SCH (10:13)
[2018-04-24] MEDS: Docusate 100mg cap ORAL SCH ×2 (10:13→17:45)
[2018-04-24] MEDS: cloNIDine 0.2mg Tab ORAL SCH ×2 (10:13→17:46)
[2018-04-24] MEDS: Furosemide 80mg tab ORAL SCH (10:13)
--- NOTE | 2018-04-24 12:38 | Diagnostic Imaging Report ---
APPROVED REPORT CPT Code: 61455 Symptoms Comments: SOB pain. Hx of Toe Amputation both legs RIGHT LEG: Common femoral artery waveform analysis is within normal limits at rest. Color flow duplex sonography reveals patency of the superficial femoral, popliteal, and tibial arteries. There is no evidence of stenosis or occlusion within these segments. Doppler tibial artery waveform analysis is within normal limits. LEFT LEG: Common femoral artery waveform analysis is within normal limits at rest. Color flow duplex sonography reveals calcification throughout the superficial femoral artery. A moderate (50-75%) stenosis is seen in the distal superficial femoral artery. There is no evidence of occlusion within this segment. The tibioperoneal trunk not well visualized. The distal posterior and dorsalis pedis arteries are also calcified. The Doppler tibial artery waveform analysis is compatible with moderate ischemia at rest. Arterio-Venous Fistula: Imaging reveals patency of the arterio-venous fistula, the femoral artery to the greater saphenous vein, at the upper thigh level.
--- NOTE | 2018-04-24 12:46 | Consultation ---
Consult Note Assessment/Plan A/ 1) Possible osteomyelitis of left stump site 2) Cellulitis left foot 3) Vascular wounds left stump site and left posterior ankle 4) PAD on ultz 5) DM 6) COPD 7) h/o smoker P/ 1) Cont wound care 2) Abx per ID. MRI reviewed, will likely need meterman abx 3) Consult Dr Oliveira for PAD 4) Will need SNF placement for management of complex wound and medical conditions. 5) Will follow Michael Raygoza DPM Apr 24, 2018 12:46
--- NOTE | 2018-04-24 12:48 | NUR ---
RESPIRATORY NOTE:Onboard shift at 1200. Told that 0700 & 1100 Duoneb not admin to pt due to higher priority triage, report given from Bulmaro Mcgarry RRT. Will continue to monitor & move forward with orders as ordered.
--- NOTE | 2018-04-24 13:00 | NUR ---
NURSE NOTES: Patient was seen by Dr. Raygoza.
--- NOTE | 2018-04-24 13:16 | NUR ---
NURSE NOTES: wound culture done from the left foot open wound and sent it to lab.
--- NOTE | 2018-04-24 15:10 | NUR ---
NURSE NOTES: RN received venous duplex of the lower ex's result, called Dr. Sewell's office and left message.Dr. Sewell was busy with the patient,unable to answer the phone call.Rn needs some clarification about heparin since patient's PLT was 63,ooo today. Per assistant corporate secretary, Dr. Sewell will call back. Left call back number.
--- NOTE | 2018-04-24 15:15 | Consultation ---
History of Present Illness General Date patient seen: Apr 24, 2018 Time patient seen: 15:07 Chief Complaint: Shortness of breath Referring physician: Dr. Moe Sewell Reason for Consultation: Shortness of breath and [facility] Present Illness HPI 67 y/o male w/ DM, ESRD on HD, COPD, CHU, CHF, L foot/leg ulcer admitted for further treatment of diabetic foot wound. He has had increasing shortness of breath with minimal exertion x 1 month. Cannot lay flat. No wheezing. Given neb treatments and felt better afterward. Given CPAP 10 here and feels pressure is higher and feels better with it. Quit smoking several months ago was smoking 1/2 ppd x 50 years. Allergies: Coded Allergies: NO KNOWN DRUG ALLERGIES (Verified Allergy, Unknown, 03/06/18) Medication History Scheduled Allopurinol* (Allopurinol*), 300 MG ORAL DAILY, (Reported) Amlodipine Besylate* (Amlodipine Besylate*), 5 MG ORAL DAILY, (Reported) Carvedilol* (Carvedilol*), 12.5 MG ORAL DAILY, (Reported) Cinacalcet* (Sensipar*), 30 MG ORAL DAILY, (Reported) Clonidine Hcl* (Catapres*), 0.2 MG ORAL TWICE A DAY, (Reported) Finasteride* (Proscar*), 5 MG ORAL DAILY, (Reported) Furosemide* (Lasix*), 80 MG ORAL DAILY, (Reported) Gabapentin* (Gabapentin*), 300 MG ORAL THREE TIMES A DAY, (Reported) Losartan Potassium* (Losartan Potassium*), 50 MG ORAL DAILY, (Reported) Tamsulosin Hcl (Tamsulosin Hcl*), 0.4 MG ORAL BEDTIME, (Reported) Miscellaneous Medications Apixaban (Eliquis), 5 MG PO, (Reported) Folic Acid/Vitamin B Comp W-C (Mayda-Humberto Tablet), 0.8 MG PO, (Reported) Patient History History Provided By: Patient Healthcare decision maker Heaven Gabriel Resuscitation status Advanced Directive on File No Past Medical/Surgical History Past Medical/Surgical History: (1) ESRD (end stage renal disease) (2) Diabetic foot infection (3) Diabetic infection of left foot Review of Systems Constitutional: Reports: no symptoms Eye: Reports: no symptoms ENT: Reports: no symptoms Respiratory: Reports: orthopnea, shortness of breath, wheezing, GRAJEDA Cardiovascular: Reports: edema, PND Gastrointestinal: Reports: no symptoms Genitourinary: Reports: no symptoms Musculoskeletal: Reports: no symptoms Psychiatric: Reports: no symptoms Physical Exam General Appearance: no apparent distress HEENT: mucous membranes moist, PERRL Neck: supple Respiratory/Chest: decreased breath sounds, crackles/rales Cardiovascular/Chest: normal rate, regular rhythm Abdomen: non tender, soft Extremities: other - L foot/ankle wrapped. Edema in b/l LE Last 24 Hour Vital Signs Date Time Temp Pulse Resp B/P (MAP) Pulse Ox O2 Delivery O2 Flow Rate FiO2 04/24/18 11:00 2.0 28 04/24/18 11:00 2.0 28 04/24/18 10:13 143/82 04/24/18 10:13 101 143/82 04/24/18 08:00 98.7 101 22 143/82 (102) 95 04/24/18 07:00 94 Nasal Cannula 2.0 28 04/24/18 07:00 2.0 28 04/24/18 07:00 2.0 28 04/24/18 07:00 Nasal Cannula 2.0 28 04/24/18 05:30 106 24 95 Facial 35 04/24/18 03:44 102 18 Bi-pap 35 04/24/18 03:40 106 19 96 Bi-pap 35 04/24/18 03:30 100 18 92 Facial 35 04/24/18 03:30 98 18 93 Bi-pap 35 04/24/18 01:16 98.5 98 18 161/96 (117) 93 04/24/18 01:04 102 30 95 Facial 35 04/24/18 00:00 Nasal Cannula 2.0 28 04/24/18 00:00 92 Nasal Cannula 2.0 28 04/23/18 23:36 138/73 04/23/18 20:11 Nasal Cannula 2.0 04/23/18 16:50 98.1 105 20 138/73 95 Nasal Cannula 2.0 04/23/18 16:50 105 20 Nasal Cannula 2.0 95 04/23/18 16:14 98 25 138/73 96 Nasal Cannula 3.0 Intake and Output 04/23/18 04/24/18 19:00 07:00 Intake Total 400 ml Balance 400 ml Intake Oral 400 ml # Bowel Movements 2 Laboratory Tests Test 04/23/18 16:40 04/24/18 06:35 White Blood Count 5.6 K/UL (4.8-10.8) 4.5 K/UL (4.8-10.8) L Red Blood Count 2.84 M/UL (4.70-6.10) L 2.83 M/UL (4.70-6.10) L Hemoglobin 8.2 G/DL (14.2-18.0) L 8.2 G/DL (14.2-18.0) L Hematocrit 26.4 % (42.0-52.0) L 26.9 % (42.0-52.0) L Mean Corpuscular Volume 93 FL (80-99) 95 FL (80-99) Mean Corpuscular Hemoglobin 29.0 PG (27.0-31.0) 28.8 PG (27.0-31.0) Mean Corpuscular Hemoglobin Concent 31.2 G/DL (32.0-36.0) L 30.4 G/DL (32.0-36.0) L Red Cell Distribution Width 19.5 % (11.6-14.8) H 18.8 % (11.6-14.8) H Platelet Count 66 K/UL (150-450) L 63 K/UL (150-450) L Mean Platelet Volume 7.6 FL (6.5-10.1) 8.1 FL (6.5-10.1) Neutrophils (%) (Auto) % (45.0-75.0) % (45.0-75.0) Lymphocytes (%) (Auto) % (20.0-45.0) % (20.0-45.0) Monocytes (%) (Auto) % (1.0-10.0) % (1.0-10.0) Eosinophils (%) (Auto) % (0.0-3.0) % (0.0-3.0) Basophils (%) (Auto) % (0.0-2.0) % (0.0-2.0) Differential Total Cells Counted 100 100 Neutrophils % (Manual) 76 % (45-75) H 79 % (45-75) H Lymphocytes % (Manual) 13 % (20-45) L 8 % (20-45) L Monocytes % (Manual) 7 % (1-10) 9 % (1-10) Eosinophils % (Manual) 2 % (0-3) 3 % (0-3) Basophils % (Manual) 0 % (0-2) 1 % (0-2) Band Neutrophils 2 % (0-8) 0 % (0-8) Platelet Estimate Decreased L Decreased L Platelet Morphology Normal Normal Polychromasia 1+ Hypochromasia 2+ 2+ Anisocytosis 1+ 2+ Sodium Level 139 MMOL/L (136-145) 139 MMOL/L (136-145) Potassium Level 3.6 MMOL/L (3.5-5.1) 4.1 MMOL/L (3.5-5.1) Chloride Level 100 MMOL/L (98-107) 100 MMOL/L (98-107) Carbon Dioxide Level 30 MMOL/L (21-32) 29 MMOL/L (21-32) Anion Gap 9 mmol/L (5-15) 10 mmol/L (5-15) Blood Urea Nitrogen 36 mg/dL (7-18) H 45 mg/dL (7-18) H Creatinine 5.5 MG/DL (0.55-1.30) H 6.7 MG/DL (0.55-1.30) H Estimat Glomerular Filtration Rate 12.7 mL/min (>60) 10.2 mL/min (>60) Glucose Level 151 MG/DL (74-106) H 96 MG/DL (74-106) Lactic Acid Level 1.70 mmol/L (0.4-2.0) Calcium Level 9.6 MG/DL (8.5-10.1) 8.8 MG/DL (8.5-10.1) Total Bilirubin 0.4 MG/DL (0.2-1.0) 0.5 MG/DL (0.2-1.0) Aspartate Amino Transf (AST/SGOT) 19 U/L (15-37) 20 U/L (15-37) Alanine Aminotransferase (ALT/SGPT) 17 U/L (12-78) 6 U/L (12-78) L Alkaline Phosphatase 134 U/L (46-116) H 127 U/L (46-116) H Troponin I 0.047 ng/mL (0.000-0.056) 0.057 ng/mL (0.000-0.056) Total Protein 7.3 G/DL (6.4-8.2) 6.9 G/DL (6.4-8.2) Albumin 3.1 G/DL (3.4-5.0) L 2.8 G/DL (3.4-5.0) L Globulin 4.2 g/dL 4.1 g/dL Albumin/Globulin Ratio 0.7 (1.0-2.7) L 0.7 (1.0-2.7) L Hemoglobin A1c 5.9 % (4.3-6.0) Pro-B-Type Natriuretic Peptide > 46477 pg/mL (0-125) H Triglycerides Level 49 MG/DL (30-150) Cholesterol Level 94 MG/DL (< 200) LDL Cholesterol 40 mg/dL (<100) HDL Cholesterol 51 MG/DL (40-60) Cholesterol/HDL Ratio 1.8 (3.3-4.4) L Thyroid Stimulating Hormone (TSH) 1.657 uiU/mL (0.358-3.740) Microbiology Date/Time Source Procedure Growth Status 04/23/18 16:40 Blood Blood Culture - Preliminary Resulted Height (Feet): 5 Height (Inches): 7.00 Weight (Pounds): 190 Medications Current Medications Medications (Trade) Dose Ordered Sig/Oliverio Route PRN Reason Start Time Stop Time Status Last Admin Dose Admin Acetaminophen (Tylenol) 650 mg Q6H PRN ORAL Mild Pain/Temp > 100.5 04/23/18 22:30 05/23/18 22:29 Acetaminophen/ Hydrocodone Bitart (Liberty 10/325) 1 tab Q6H PRN ORAL For Pain 04/23/18 22:30 04/30/18 22:29 04/23/18 23:35 Al Hydroxide/Mg Hydroxide (Mylanta) 30 ml BID PRN ORAL Constipation 04/23/18 22:30 05/23/18 22:29 Albuterol/ Ipratropium (Albuterol/ Ipratropium) 3 ml Q4HRT HHN 04/23/18 23:00 04/28/18 22:59 04/24/18 03:39 Albuterol/ Ipratropium (Albuterol/ Ipratropium) 3 ml Q6HRT N 04/24/18 15:15 04/29/18 15:14 UNV Allopurinol (Zyloprim) 100 mg DAILY ORAL 04/24/18 09:00 05/24/18 08:59 04/24/18 10:13 Amlodipine Besylate (Norvasc) 5 mg DAILY ORAL 04/24/18 09:00 05/24/18 08:59 04/24/18 10:13 Clonidine HCl (Catapres tab) 0.2 mg BID ORAL 04/23/18 22:30 05/23/18 22:29 04/24/18 10:13 Dextrose (Dextrose 50%) 25 ml Q30M PRN IV Hypoglycemia 04/23/18 23:00 05/23/18 22:59 Dextrose (Dextrose 50%) 50 ml Q30M PRN IV Hypoglycemia 04/23/18 23:00 05/23/18 22:59 Docusate Sodium (Colace) 100 mg TWICE A DAY ORAL 04/24/18 09:00 05/24/18 08:59 04/24/18 10:13 Finasteride (Proscar) 5 mg DAILY ORAL 04/24/18 09:00 05/24/18 08:59 04/24/18 10:12 Furosemide (Lasix) 80 mg DAILY ORAL 04/24/18 09:00 05/24/18 08:59 04/24/18 10:13 Gabapentin (Neurontin) 300 mg DAILY ORAL 04/24/18 09:00 05/24/18 08:59 04/24/18 10:13 Heparin Sodium (Porcine) (Heparin 5000 units/ml) 5,000 units EVERY 12 HOURS SUBQ 04/24/18 21:00 05/24/18 20:59 Insulin Aspart (NovoLOG) BEFORE MEALS AND HS SUBQ 04/24/18 06:30 05/24/18 06:29 Meropenem 500 mg/ Sodium Chloride 55 ml @ 110 mls/hr Q24H IVPB 04/23/18 21:00 04/28/18 20:59 04/23/18 22:08 Pantoprazole (Protonix) 40 mg DAILY IVP 04/24/18 09:00 05/24/18 08:59 04/24/18 10:13 Tamsulosin HCl (Flomax) 0.4 mg BEDTIME ORAL 04/23/18 23:45 05/23/18 23:44 04/23/18 23:35 Valacyclovir HCl (Valtrex) 500 mg Q24H ORAL 04/24/18 16:00 05/24/18 15:59 Vancomycin HCl (Vanco rx to dose) 1 ea DAILY PRN MISC Per rx protocol 04/23/18 18:15 05/23/18 18:14 Vitamin B Complex/ Vit C/Folic Acid (Nephrovite) 1 tab DAILY ORAL 04/24/18 09:00 05/24/18 08:59 04/24/18 10:13 Objective Narrative CXR review with pulmonary vascular congestion Assessment/Plan Assessment/Plan Problem List: 1. Diabetic foot infection 2. Acute CHF exacerbation/pulmonary edema 3. COPD w/o obvious exacerbation 4. CHU 5. ESRD on HD 6. Hx multiple amputations Plan: Abx per ID f/u cultures Podiatric wound care/debridement as needed Monitor volumes, needs volume removed with HD Duonebs q6 Cont CPAP 10 cm H2O Tyrel Platt MD Apr 24, 2018 15:15
--- NOTE | 2018-04-24 15:21 | Cardiology Report ---
APPROVED REPORT EXAM: Two-dimensional and M-mode echocardiogram with Doppler and color Doppler. INDICATION Hypertension/HCVD M-Mode DIMENSIONS IVSd0.7 (0.7-1.1cm)Left Atrium (MM)4.8 (1.6-4.0cm) LVDd5.7 (3.5-5.6cm)Aortic Root3.3 (2.0-3.7cm) PWd1.2 (0.7-1.1cm)Aortic Cusp Exc.1.8 (1.5-2.0cm) LVDs4.2 (2.5-4.0cm) Normal left ventricular chamber size, systolic function and wall motion. Left ventricular ejection fraction estimated to be 60-65 %. Moderate left ventricular hypertrophy by 2-D. Small posterior pericardial effusion. Moderate left atrial enlargement. Mild right atrial enlargement. Right ventricular chamber size is within normal limits. Moderate aortic valve calcification with decreased cusp excursion c/w aortic stenosis. Moderately thickened mitral valve leaflets with normal excursion. Mitral annulus and aortic root calcification. Pulmonic valve not well visualized. Normal tricuspid valve structure. IVC dilated at 2.4 cm with slight physiologic collapse suggestive of increased RA pressure. A color flow and spectral Doppler study was performed and revealed: Trace aortic regurgitation. Peak aortic valve gradient of 35 mm Hg and a mean of 20 mmHg. Aortic valve area 1.5 cm2 calculated by continuity equation. Moderate mitral regurgitation. Mitral inflow velocities indicates possible pseudo normalization pattern implying moderately elevated left atrial pressure (Grade II). Mild tricuspid regurgitation. Tricuspid systolic velocities suggests peak right ventricular systolic pressure of 47 mmHg, consistent with moderate pulmonary hypertension. Pulmonic regurgitation present.
[2018-04-24] MEDS ORDERED: valACYclovir HCL 500mg tab ORAL SCH (16:00)
--- NOTE | 2018-04-24 16:04 | Cardiology Report ---
APPROVED REPORT EKG Measurement Heart [id number] Sinus tachycardia Possible Left atrial enlargement Borderline ECG
--- NOTE | 2018-04-24 16:38 | Infectious Diseases Prog Note ---
Assessment/Plan Problems: (1) Acute osteomyelitis of metatarsal bone of left foot Assessment & Plan: continue meropenem and vancomycin treatment for 6 weeks pending final cultures. continue local wound care and dressings change as per zipper slide attacher (2) Achilles tendon infection Assessment & Plan: with open wound, already on wide spectrum antibiotics coverage , continue local wound care and dressings change , podiatry is following (3) Diabetic foot infection Assessment & Plan: continue wide spectrum antibiotics , with tight glycemic control. (4) ESRD (end stage renal disease) Assessment & Plan: on HD , consult renal (5) PVD (peripheral vascular disease) Assessment & Plan: recommend vascular eval for possible angioplasty of the left leg Subjective Constitutional: Reports: no symptoms HEENT: Reports: no symptoms Respiratory: Reports: no symptoms Breasts: Reports: no symptoms Cardiovascular: Reports: no symptoms Gastrointestinal/Abdominal: Reports: no symptoms Genitourinary: Reports: no symptoms Neurologic: Reports: weakness Psychiatric: Reports: no symptoms Skin: Reports: ulcer Endocrine: Reports: no symptoms Hematologic: Reports: no symptoms Musculoskeletal: Reports: pain, swelling Allergies: Coded Allergies: NO KNOWN DRUG ALLERGIES (Verified Allergy, Unknown, 03/06/18) Subjective he was feeling better after started on antibiotics with less pain and swelling in his left foot Objective Vital Signs Last 24 Hour Vital Signs Date Time Temp Pulse Resp B/P (MAP) Pulse Ox O2 Delivery O2 Flow Rate FiO2 04/24/18 15:40 96 14 100 Nasal Cannula 2.0 28 04/24/18 15:30 90 14 100 Nasal Cannula 2.0 28 04/24/18 11:00 2.0 28 04/24/18 11:00 2.0 28 04/24/18 10:13 143/82 04/24/18 10:13 101 143/82 04/24/18 08:00 98.7 101 22 143/82 (102) 95 04/24/18 07:00 94 Nasal Cannula 2.0 28 04/24/18 07:00 2.0 28 04/24/18 07:00 2.0 28 04/24/18 07:00 Nasal Cannula 2.0 28 04/24/18 05:30 106 24 95 Facial 35 04/24/18 03:44 102 18 Bi-pap 35 04/24/18 03:40 106 19 96 Bi-pap 35 04/24/18 03:30 100 18 92 Facial 35 04/24/18 03:30 98 18 93 Bi-pap 35 04/24/18 01:16 98.5 98 18 161/96 (117) 93 04/24/18 01:04 102 30 95 Facial 35 04/24/18 00:00 Nasal Cannula 2.0 28 04/24/18 00:00 92 Nasal Cannula 2.0 28 04/23/18 23:36 138/73 04/23/18 20:11 Nasal Cannula 2.0 04/23/18 16:50 98.1 105 20 138/73 95 Nasal Cannula 2.0 04/23/18 16:50 105 20 Nasal Cannula 2.0 95 Height (Feet): 5 Height (Inches): 7.00 Weight (Pounds): 232 General Appearance: WD/WN, no acute distress HEENT: normocephalic, atraumatic, anicteric, mucous membranes moist, PERRL, EOMI, pharynx normal, supple, no JVD Respiratory/Chest: chest wall non-tender, lungs clear, normal breath sounds, no respiratory distress, no accessory muscle use Cardiovascular: normal peripheral pulses, normal rate, regular rhythm, no gallop/murmur, no JVD Abdomen: normal bowel sounds, soft, non tender, no organomegaly, non distended , no mass, no scars Genitourinary: normal external genitalia Extremities: no cyanosis, no clubbing Skin: no rash, no lesions, ulcers Neurologic/Psychiatric: alert, oriented x 3, responsive Lymphatic: no neck adenopathy, no groin adenopathy Musculoskeletal: no effusion, other - left achillis tendon exposed Microbiology Date/Time Source Procedure Growth Status 04/23/18 16:40 Blood Blood Culture - Preliminary Resulted Laboratory Tests Test 04/23/18 16:40 04/24/18 06:35 White Blood Count 5.6 K/UL (4.8-10.8) 4.5 K/UL (4.8-10.8) L Red Blood Count 2.84 M/UL (4.70-6.10) L 2.83 M/UL (4.70-6.10) L Hemoglobin 8.2 G/DL (14.2-18.0) L 8.2 G/DL (14.2-18.0) L Hematocrit 26.4 % (42.0-52.0) L 26.9 % (42.0-52.0) L Mean Corpuscular Volume 93 FL (80-99) 95 FL (80-99) Mean Corpuscular Hemoglobin 29.0 PG (27.0-31.0) 28.8 PG (27.0-31.0) Mean Corpuscular Hemoglobin Concent 31.2 G/DL (32.0-36.0) L 30.4 G/DL (32.0-36.0) L Red Cell Distribution Width 19.5 % (11.6-14.8) H 18.8 % (11.6-14.8) H Platelet Count 66 K/UL (150-450) L 63 K/UL (150-450) L Mean Platelet Volume 7.6 FL (6.5-10.1) 8.1 FL (6.5-10.1) Neutrophils (%) (Auto) % (45.0-75.0) % (45.0-75.0) Lymphocytes (%) (Auto) % (20.0-45.0) % (20.0-45.0) Monocytes (%) (Auto) % (1.0-10.0) % (1.0-10.0) Eosinophils (%) (Auto) % (0.0-3.0) % (0.0-3.0) Basophils (%) (Auto) % (0.0-2.0) % (0.0-2.0) Differential Total Cells Counted 100 100 Neutrophils % (Manual) 76 % (45-75) H 79 % (45-75) H Lymphocytes % (Manual) 13 % (20-45) L 8 % (20-45) L Monocytes % (Manual) 7 % (1-10) 9 % (1-10) Eosinophils % (Manual) 2 % (0-3) 3 % (0-3) Basophils % (Manual) 0 % (0-2) 1 % (0-2) Band Neutrophils 2 % (0-8) 0 % (0-8) Platelet Estimate Decreased L Decreased L Platelet Morphology Normal Normal Polychromasia 1+ Hypochromasia 2+ 2+ Anisocytosis 1+ 2+ Sodium Level 139 MMOL/L (136-145) 139 MMOL/L (136-145) Potassium Level 3.6 MMOL/L (3.5-5.1) 4.1 MMOL/L (3.5-5.1) Chloride Level 100 MMOL/L (98-107) 100 MMOL/L (98-107) Carbon Dioxide Level 30 MMOL/L (21-32) 29 MMOL/L (21-32) Anion Gap 9 mmol/L (5-15) 10 mmol/L (5-15) Blood Urea Nitrogen 36 mg/dL (7-18) H 45 mg/dL (7-18) H Creatinine 5.5 MG/DL (0.55-1.30) H 6.7 MG/DL (0.55-1.30) H Estimat Glomerular Filtration Rate 12.7 mL/min (>60) 10.2 mL/min (>60) Glucose Level 151 MG/DL (74-106) H 96 MG/DL (74-106) Lactic Acid Level 1.70 mmol/L (0.4-2.0) Calcium Level 9.6 MG/DL (8.5-10.1) 8.8 MG/DL (8.5-10.1) Total Bilirubin 0.4 MG/DL (0.2-1.0) 0.5 MG/DL (0.2-1.0) Aspartate Amino Transf (AST/SGOT) 19 U/L (15-37) 20 U/L (15-37) Alanine Aminotransferase (ALT/SGPT) 17 U/L (12-78) 6 U/L (12-78) L Alkaline Phosphatase 134 U/L (46-116) H 127 U/L (46-116) H Troponin I 0.047 ng/mL (0.000-0.056) 0.057 ng/mL (0.000-0.056) Total Protein 7.3 G/DL (6.4-8.2) 6.9 G/DL (6.4-8.2) Albumin 3.1 G/DL (3.4-5.0) L 2.8 G/DL (3.4-5.0) L Globulin 4.2 g/dL 4.1 g/dL Albumin/Globulin Ratio 0.7 (1.0-2.7) L 0.7 (1.0-2.7) L Hemoglobin A1c 5.9 % (4.3-6.0) Pro-B-Type Natriuretic Peptide > 32350 pg/mL (0-125) H Triglycerides Level 49 MG/DL (30-150) Cholesterol Level 94 MG/DL (< 200) LDL Cholesterol 40 mg/dL (<100) HDL Cholesterol 51 MG/DL (40-60) Cholesterol/HDL Ratio 1.8 (3.3-4.4) L Thyroid Stimulating Hormone (TSH) 1.657 uiU/mL (0.358-3.740) Current Medications Medications (Trade) Dose Ordered Sig/Oliverio Route PRN Reason Start Time Stop Time Status Last Admin Dose Admin Acetaminophen (Tylenol) 650 mg Q6H PRN ORAL Mild Pain/Temp > 100.5 04/23/18 22:30 05/23/18 22:29 Acetaminophen/ Hydrocodone Bitart ([place] 10/325) 1 tab Q6H PRN ORAL For Pain 04/23/18 22:30 04/30/18 22:29 04/23/18 23:35 Al Hydroxide/Mg Hydroxide (Mylanta) 30 ml BID PRN ORAL Constipation 04/23/18 22:30 05/23/18 22:29 Albuterol/ Ipratropium (Albuterol/ Ipratropium) 3 ml Q6HRT HHN 04/24/18 15:15 04/29/18 15:14 04/24/18 15:53 Allopurinol (Zyloprim) 100 mg DAILY ORAL 04/24/18 09:00 05/24/18 08:59 04/24/18 10:13 Amlodipine Besylate (Norvasc) 5 mg DAILY ORAL 04/24/18 09:00 05/24/18 08:59 04/24/18 10:13 Clonidine HCl (Catapres tab) 0.2 mg BID ORAL 04/23/18 22:30 05/23/18 22:29 04/24/18 10:13 Dextrose (Dextrose 50%) 25 ml Q30M PRN IV Hypoglycemia 04/23/18 23:00 05/23/18 22:59 Dextrose (Dextrose 50%) 50 ml Q30M PRN IV Hypoglycemia 04/23/18 23:00 05/23/18 22:59 Docusate Sodium (Colace) 100 mg TWICE A DAY ORAL 04/24/18 09:00 2/8/19 08:59 04/24/18 10:13 Finasteride (Proscar) 5 mg DAILY ORAL 04/24/18 09:00 05/24/18 08:59 04/24/18 10:12 Furosemide (Lasix) 80 mg DAILY ORAL 04/24/18 09:00 05/24/18 08:59 04/24/18 10:13 Gabapentin (Neurontin) 300 mg DAILY ORAL 04/24/18 09:00 05/24/18 08:59 04/24/18 10:13 Heparin Sodium (Porcine) (Heparin 5000 units/ml) 5,000 units EVERY 12 HOURS SUBQ 04/24/18 21:00 05/24/18 20:59 Insulin Aspart (NovoLOG) BEFORE MEALS AND HS SUBQ 04/24/18 06:30 05/24/18 06:29 Meropenem 500 mg/ Sodium Chloride 55 ml @ 110 mls/hr Q24H IVPB 04/23/18 21:00 04/28/18 20:59 04/23/18 22:08 Pantoprazole (Protonix) 40 mg DAILY IVP 04/24/18 09:00 05/24/18 08:59 04/24/18 10:13 Tamsulosin HCl (Flomax) 0.4 mg BEDTIME ORAL 04/23/18 23:45 05/23/18 23:44 04/23/18 23:35 Valacyclovir HCl (Valtrex) 500 mg Q24H ORAL 04/24/18 16:00 05/24/18 15:59 Vancomycin HCl (Vanco rx to dose) 1 ea DAILY PRN MISC Per rx protocol 04/23/18 18:15 05/23/18 18:14 Vitamin B Complex/ Vit C/Folic Acid (Nephrovite) 1 tab DAILY ORAL 04/24/18 09:00 05/24/18 08:59 04/24/18 10:13 Jaime Casey M.D. Apr 24, 2018 16:38
[2018-04-24] MEDS: HYDROcodone/Acetamin 10/325 tab ORAL PRN (17:49)
--- NOTE | 2018-04-24 18:23 | Cardiac Electrophysiology PN ---
Subjective Subjective [id number] Objective Last 24 Hour Vital Signs Date Time Temp Pulse Resp B/P (MAP) Pulse Ox O2 Delivery O2 Flow Rate FiO2 04/24/18 17:46 153/94 04/24/18 15:40 96 14 100 Nasal Cannula 2.0 28 04/24/18 15:30 90 14 100 Nasal Cannula 2.0 28 04/24/18 11:00 2.0 28 04/24/18 11:00 2.0 28 04/24/18 10:13 143/82 04/24/18 10:13 101 143/82 04/24/18 08:00 98.7 101 22 143/82 (102) 95 04/24/18 07:00 94 Nasal Cannula 2.0 28 04/24/18 07:00 2.0 28 04/24/18 07:00 2.0 28 04/24/18 07:00 Nasal Cannula 2.0 28 04/24/18 05:30 106 24 95 Facial 35 04/24/18 03:44 102 18 Bi-pap 35 04/24/18 03:40 106 19 96 Bi-pap 35 04/24/18 03:30 100 18 92 Facial 35 04/24/18 03:30 98 18 93 Bi-pap 35 04/24/18 01:16 98.5 98 18 161/96 (117) 93 04/24/18 01:04 102 30 95 Facial 35 04/24/18 00:00 Nasal Cannula 2.0 28 04/24/18 00:00 92 Nasal Cannula 2.0 28 04/23/18 23:36 138/73 04/23/18 20:11 Nasal Cannula 2.0 Intake and Output 04/23/18 04/24/18 19:00 07:00 Intake Total 400 ml Balance 400 ml Intake Oral 400 ml # Bowel Movements 2 Laboratory Tests Test 04/24/18 06:35 White Blood Count 4.5 K/UL (4.8-10.8) L Red Blood Count 2.83 M/UL (4.70-6.10) L Hemoglobin 8.2 G/DL (14.2-18.0) L Hematocrit 26.9 % (42.0-52.0) L Mean Corpuscular Volume 95 FL (80-99) Mean Corpuscular Hemoglobin 28.8 PG (27.0-31.0) Mean Corpuscular Hemoglobin Concent 30.4 G/DL (32.0-36.0) L Red Cell Distribution Width 18.8 % (11.6-14.8) H Platelet Count 63 K/UL (150-450) L Mean Platelet Volume 8.1 FL (6.5-10.1) Neutrophils (%) (Auto) % (45.0-75.0) Lymphocytes (%) (Auto) % (20.0-45.0) Monocytes (%) (Auto) % (1.0-10.0) Eosinophils (%) (Auto) % (0.0-3.0) Basophils (%) (Auto) % (0.0-2.0) Differential Total Cells Counted 100 Neutrophils % (Manual) 79 % (45-75) H Lymphocytes % (Manual) 8 % (20-45) L Monocytes % (Manual) 9 % (1-10) Eosinophils % (Manual) 3 % (0-3) Basophils % (Manual) 1 % (0-2) Band Neutrophils 0 % (0-8) Platelet Estimate Decreased L Platelet Morphology Normal Hypochromasia 2+ Anisocytosis 2+ Sodium Level 139 MMOL/L (136-145) Potassium Level 4.1 MMOL/L (3.5-5.1) Chloride Level 100 MMOL/L (98-107) Carbon Dioxide Level 29 MMOL/L (21-32) Anion Gap 10 mmol/L (5-15) Blood Urea Nitrogen 45 mg/dL (7-18) H Creatinine 6.7 MG/DL (0.55-1.30) H Estimat Glomerular Filtration Rate 10.2 mL/min (>60) Glucose Level 96 MG/DL (74-106) Hemoglobin A1c 5.9 % (4.3-6.0) Calcium Level 8.8 MG/DL (8.5-10.1) Total Bilirubin 0.5 MG/DL (0.2-1.0) Aspartate Amino Transf (AST/SGOT) 20 U/L (15-37) Alanine Aminotransferase (ALT/SGPT) 6 U/L (12-78) L Alkaline Phosphatase 127 U/L (46-116) H Troponin I 0.057 ng/mL (0.000-0.056) Pro-B-Type Natriuretic Peptide > 17856 pg/mL (0-125) H Total Protein 6.9 G/DL (6.4-8.2) Albumin 2.8 G/DL (3.4-5.0) L Globulin 4.1 g/dL Albumin/Globulin Ratio 0.7 (1.0-2.7) L Triglycerides Level 49 MG/DL (30-150) Cholesterol Level 94 MG/DL (< 200) LDL Cholesterol 40 mg/dL (<100) HDL Cholesterol 51 MG/DL (40-60) Cholesterol/HDL Ratio 1.8 (3.3-4.4) L Thyroid Stimulating Hormone (TSH) 1.657 uiU/mL (0.358-3.740) Microbiology Date/Time Source Procedure Growth Status 04/23/18 16:40 Blood Blood Culture - Preliminary Resulted Shelton Perdomo MD Apr 24, 2018 18:23
--- NOTE | 2018-04-24 18:35 | Consultation ---
Consult Note Assessment/Plan CHART REVIEWED HD ORDERS ENTERED FULL NOTE WILL BE DICTATED Johan Harper MD Apr 24, 2018 18:35
[2018-04-24] MEDS ORDERED: Heparin Sod 1000 units/ml 10ml IV PRN (19:00)
--- NOTE | 2018-04-24 19:10 | NUR ---
NURSE NOTES: RN collected urine and sent it to lab and called [facility] for the dialysis for tomorrow. Awaiting for call from ironworker foreman nurse. Will endorse to the next shift to follow up.
--- NOTE | 2018-04-24 19:41 | NUR ---
HAND-OFF: Report given to Jovon POON.
--- NOTE | 2018-04-24 19:41 | NUR ---
HAND-OFF: Report given to Jovon POON.
--- NOTE | 2018-04-24 19:42 | NUR ---
NURSE NOTES: Received patient in no apparent distress. NC 2L is on, no s/s of respiratory distress noted. Dressing on left foot dry and intact. IV site patent and intact. Bed in lowest position. Call light within reach. Will continue to monitor.
[2018-04-24 20:00] VITALS: BP 128/73
--- NOTE | 2018-04-24 20:06 | NUR ---
NURSE NOTES: RN called Dr. Sewell and relayed venous duplex results of lower ex's and decreased PLT of 63,000. Dr. Sewell said " It is ok to give heparin SQ." Do VQ scan tomorrow. RN verified of heparin injection if he wants to put parameter but he said it is ok to give now.
--- NOTE | 2018-04-24 20:30 | Consultation ---
DATE OF CONSULTATION: 04/24/2018 CONSULTING PHYSICIAN: Michael Raygoza D.P.M. REFERRING PHYSICIAN: Moe Sewell M.D. REASON FOR CONSULTATION: Ischemic ulcers and cellulitis, left foot. HISTORY OF PRESENT ILLNESS: The patient is well known to my service from admissions to [facility] and followup at [facility], presented yesterday to the [facility] with increasing pain, edema, and maceration to his wound. The patient is unable to get the prescribed antibiotics due to insurance reasons and was referred to the emergency room for continued care and proper antibiotic course. PAST MEDICAL HISTORY: Significant for chronic obstructive pulmonary disease, diabetes mellitus, end-stage renal disease, and peripheral arterial disease. ALLERGIES: He has no known drug allergies. MEDICATIONS: Per MAR and include gabapentin, Valtrex, heparin for DVT prophylaxis, meropenem, and vancomycin. FAMILY HISTORY: Noncontributory. SOCIAL HISTORY: Noncontributory. The patient lives at home and has extensive history of smoking. REVIEW OF SYSTEMS: HEENT: The patient denies any headaches, blurred vision, or ringing in the ears. CARDIOVASCULAR: The patient denies any chest pain or shortness of breath. GENITOURINARY: The patient denies any urgency, frequency, burning upon urination, or hematuria. GASTROINTESTINAL: The patient denies any constipation, diarrhea, or blood in stool. PHYSICAL EXAMINATION: VITAL SIGNS: Temperature is 98.7, pulse rate is 101, respirations 20, blood pressure is 143/82, and saturating 95% on room air. LOWER EXTREMITIES: Vascular, nonpalpable pedal pulses noted bilaterally. Feet are equally warm. There is pitting edema noted bilaterally. No cyanosis is noted. DERMATOLOGICAL: There is full-thickness ulcerations noted on the left distal stump site, granular base, macerated edges. No purulence. Mild serous drainage is noted. No malodor. There is a full-thickness ulceration noted on the posterior aspect of the left ankle with exposed Achilles. No signs of acute infection are noted there. No purulence. No malodor. There is a superficial ulceration on the dorsal left aspect of the left foot. Again, no signs of acute infection noted. Right foot is unremarkable. NEUROLOGICAL: Protective threshold is absent. MUSCULOSKELETAL: The patient has a left transmetatarsal amputation. The patient is wheelchair bound. No other gross deformities are noted. LABORATORY DATA: White blood cell count is 4.5, hemoglobin and hematocrit 8.2 and 26.9, and platelet count is 63. Potassium is 4.1, BUN is 45, creatinine is 6.7, and glucose is 96. Hemoglobin A1c is 5.9. Albumin is 2.8. Wound cultures are pending. MRI of the left foot shows possible osteomyelitis of the left fifth metatarsal stump and the first metatarsal stump. There is no indication of possible gas in the tissues clinically as possibly indicated by the MRI. Arterial studies for bilateral lower extremities show that there is a calcification in the superficial femoral artery that is about 50 to 75% stenotic. ASSESSMENT: 1. Possible osteomyelitis of the left stump site. 2. Cellulitis, left foot. 3. Vascular wounds of the left stump site and left posterior ankle. 4. Peripheral arterial disease. 5. Diabetes mellitus. 6. COPD. 7. History of extensive smoking. PLAN: 1. Continue wound care with cleansing the wound with normal saline, applying Adaptic, and applying dry dressing daily. 2. Antibiotics per Infectious Disease. MRI reviewed and likely will need long-term antibiotics. 3. Consult Dr. Oliveira for peripheral arterial disease. 4. Will need SNF placement for management of complex wound and medical conditions. 5. We will follow. Thank you for the courtesy of this consultation. Michael Raygoza D.P.M. DR: MARTA JOB#: [id number] CC:
--- NOTE | 2018-04-24 20:30 | Consultation ---
DATE OF CONSULTATION: 04/24/2018 CARDIOLOGY CONSULTATION CONSULTING PHYSICIAN: Shelton Perdomo M.D. REFERRING PHYSICIAN: Moe Sewell M.D. REASON FOR CONSULTATION: Hypertension, congestive heart failure. HISTORY OF PRESENT ILLNESS: The patient is a 67-year-old gentleman with history of hypertension, diabetes, end-stage renal disease, on hemodialysis, peripheral vascular disease, history of osteomyelitis, underwent amputation of his toes of lower extremity and is followed by Dr. Raygoza. The patient was sent for left metatarsal surgical wound infection with a failing flap with possible underlying metatarsal osteomyelitis and new Achilles open tendon wound. The patient underwent amputation on January 24, 2018, of severely infected toes at [facility]. The patient was admitted and Cardiology consultation was requested for further evaluation and management of congestive heart failure. REVIEW OF SYSTEMS: Negative other than what is mentioned in the history of present illness. PAST MEDICAL HISTORY: 1. Hypertension. 2. Diabetes. 3. Congestive heart failure. 4. Diabetic foot ulcer. 5. Obstructive sleep apnea. 6. Osteomyelitis. 7. Renal failure, on dialysis. 8. Status post metatarsal amputation in January 2018. 9. AV fistula in the left thigh and right upper arm. MEDICATIONS: Per reconciliation. ALLERGIES: He has no known drug allergies. FAMILY HISTORY: Noncontributory. SOCIAL HISTORY: Does not smoke or drink alcohol. PHYSICAL EXAMINATION: VITAL SIGNS: Blood pressure is 153/94, pulse 96, respirations 14, temperature is 98.7. HEAD AND NECK: Showed no JVD. LUNGS: Decreased breath sounds. CARDIOVASCULAR: Shows regular S1 and S2 with no gallop. ABDOMEN: Soft. EXTREMITIES: Status post multiple amputations, 2+ lower extremity edema. LABORATORY DATA: White count 4.5, hemoglobin 8.7, hematocrit 27, platelet count of 163,000. Sodium 139, potassium 4.1, BUN of 45, creatinine 6.7. Troponin 0.047 and 0.057. BNP is more than 35,000. ASSESSMENT AND PLAN: 1. Congestive heart failure. BNP of more than 35,000. The patient is already on hemodialysis. We will get an echocardiogram for further evaluation and management. It could be due to diastolic dysfunction and volume overload. 2. Troponin elevation. Troponin of 0.057. First troponin was negative at 0.047. It could be due to renal failure. The patient does not have any chest pain. Repeat troponin and get an echocardiogram. Repeat EKG in the morning. 3. Hypertension. The patient is on hemodialysis, on Norvasc 5 mg daily and Lasix 80 mg p.o. daily. The patient is also on clonidine 0.2 mg b.i.d. 4. Lower extremity cellulitis, on meropenem and vancomycin. 5. Morbid obesity. 6. Peripheral vascular disease. Thank you very much for allowing me to participate in the care of this patient. Please do not hesitate to contact me for any questions regarding my evaluation. Shelton Perdomo M.D. DR: Fide JOB#: [id number] CC:
[2018-04-24] MEDS: Tamsulosin 0.4mg cap ORAL SCH (21:09)
[2018-04-24] MEDS: Meropenem 500mg/NS 55ml IVPB SCH ×2 (21:10)
[2018-04-24] MEDS: Heparin 5000 units/ml inj SUBQ SCH (21:11)
--- NOTE | 2018-04-24 21:43 | General Progress Note ---
Assessment/Plan Assessment/Plan cellulitis osteo myosisits renal failure on dialysis ho chf ho ermias thrombocytopenia abx per ID podiatry fup wound care che3ck LE areterial and venous studies dialysis depending pulmonary fup cards fup check echo monior platelets dvt and ulcer prohylaxis Subjective Allergies: Coded Allergies: NO KNOWN DRUG ALLERGIES (Verified Allergy, Unknown, 03/06/18) Subjective above noted Objective Last 24 Hour Vital Signs Date Time Temp Pulse Resp B/P (MAP) Pulse Ox O2 Delivery O2 Flow Rate FiO2 04/24/18 20:00 98.6 96 20 128/73 (91) 98 04/24/18 19:52 95 20 99 Nasal Cannula 2.0 28 04/24/18 19:42 93 Nasal Cannula 2.0 28 04/24/18 19:42 Nasal Cannula 2.0 28 04/24/18 19:42 96 20 93 Nasal Cannula 2.0 28 04/24/18 17:46 153/94 04/24/18 15:40 96 14 100 Nasal Cannula 2.0 28 04/24/18 15:30 90 14 100 Nasal Cannula 2.0 28 04/24/18 11:00 2.0 28 04/24/18 11:00 2.0 28 04/24/18 10:13 143/82 04/24/18 10:13 101 143/82 04/24/18 08:00 98.7 101 22 143/82 (102) 95 04/24/18 07:00 94 Nasal Cannula 2.0 28 04/24/18 07:00 2.0 28 04/24/18 07:00 2.0 28 04/24/18 07:00 Nasal Cannula 2.0 28 04/24/18 05:30 106 24 95 Facial 35 04/24/18 03:44 102 18 Bi-pap 35 04/24/18 03:40 106 19 96 Bi-pap 35 04/24/18 03:30 100 18 92 Facial 35 04/24/18 03:30 98 18 93 Bi-pap 35 04/24/18 01:16 98.5 98 18 161/96 (117) 93 04/24/18 01:04 102 30 95 Facial 35 04/24/18 00:00 Nasal Cannula 2.0 28 04/24/18 00:00 92 Nasal Cannula 2.0 28 04/23/18 23:36 138/73 Intake and Output 1/8/19 1/9/19 19:00 07:00 Intake Total 400 ml Balance 400 ml Intake Oral 400 ml # Bowel Movements 2 Laboratory Tests 04/24/18 06:35: White Blood Count 4.5L, Red Blood Count 2.83L, Hemoglobin 8.2L, Hematocrit 26.9L , Mean Corpuscular Volume 95, Mean Corpuscular Hemoglobin 28.8, Mean Corpuscular Hemoglobin Concent 30.4L, Red Cell Distribution Width 18.8H, Platelet Count 63L, Mean Platelet Volume 8.1, Neutrophils (%) (Auto) , Lymphocytes (%) (Auto) , Monocytes (%) (Auto) , Eosinophils (%) (Auto) , Basophils (%) (Auto) , Differential Total Cells Counted 100, Neutrophils % ( Manual) 79H, Lymphocytes % (Manual) 8L, Monocytes % (Manual) 9, Eosinophils % ( Manual) 3, Basophils % (Manual) 1, Band Neutrophils 0, Platelet Estimate DecreasedL, Platelet Morphology Normal, Hypochromasia 2+, Anisocytosis 2+, Sodium Level 139, Potassium Level 4.1, Chloride Level 100, Carbon Dioxide Level 29, Anion Gap 10, Blood Urea Nitrogen 45H, Creatinine 6.7H, Estimat Glomerular Filtration Rate 10.2, Glucose Level 96, Hemoglobin A1c 5.9, Calcium Level 8.8, Total Bilirubin 0.5, Aspartate Amino Transf (AST/SGOT) 20, Alanine Aminotransferase (ALT/SGPT) 6L, Alkaline Phosphatase 127H, Troponin I 0.057H, Pro-B-Type Natriuretic Peptide > 30619T, Total Protein 6.9, Albumin 2.8L, Globulin 4.1, Albumin/Globulin Ratio 0.7L, Triglycerides Level 49, Cholesterol Level 94, LDL Cholesterol 40, HDL Cholesterol 51, Cholesterol/HDL Ratio 1.8L, Thyroid Stimulating Hormone (TSH) 1.657 04/24/18 18:40: Random Vancomycin Level 17.0 Height (Feet): 5 Height (Inches): 7.00 Weight (Pounds): 232 General Appearance: WD/WN, no apparent distress Neck: supple Cardiovascular: normal rate Respiratory/Chest: lungs clear Abdomen: soft Objective left loer extremity dressing intact clean no bleeding Moe Sewell MD Apr 24, 2018 21:43
--- NOTE | 2018-04-24 22:40 | NUR ---
NURSE NOTES: Call and left message to Dr. Platt regarding result of Venous Duplex scan.
--- NOTE | 2018-04-24 23:20 | NUR ---
RESPIRATORY NOTE: Alet/awake pt placed on CPAP for nightly use. Pt on CPAP 10, 30% w/ a facial mask. Foam tape applied on pt's nosebridge/cheeks/chin to prevent any irritations. Skin intact, no redness/breakdowns noted prior to placing mask. There is no red outlet in the room, addressed the issue to bedside RN, Jovon & discussed pt safety. There is no available room right now w/ a red outlet where this pt can move in to. Bedside RN said he'll monitor pt frequently. Pt denies SOB/distress at this time. Will continue plan of care.
[2018-04-25] VITALS: BP 132/77
[2018-04-25] MEDS: Albuterol/Ipratropium 3ml neb HHN SCH ×4 (01:19→19:56)
[2018-04-25 04:00] VITALS: BP 138/78
[2018-04-25] MEDS: HYDROcodone/Acetamin 10/325 tab ORAL PRN ×2 (04:46→16:56)
[2018-04-25] MEDS: NovoLOG Insulin Flexpen SUBQ SCH ×4 (06:12→21:02)
--- NOTE | 2018-04-25 06:44 | NUR ---
NURSE NOTES: Call and left message to Dr. Leroy Prado regarding result of Venous Duplex. Patient has acute DVT on left femoral vein which patient has AV shunt area. Waiting a call back.
--- NOTE | 2018-04-25 06:50 | NUR ---
NURSE NOTES: Call and left message to Ramon who work at [facility] hemodialysis regarding result of Venous Duplex scan. Ramon said that he will inform the RN who care the patient.
--- NOTE | 2018-04-25 07:30 | NUR ---
HAND-OFF: Report given to Casie POON.
[2018-04-25 08:00] VITALS: BP 152/95
--- NOTE | 2018-04-25 08:18 | NUR ---
NURSE NOTES: Patient alert x4, on NC 2 Lit, and patient also have CBAP, for night time; no sign of distress and shortness of breath. Left foot dressing dry and intact. Patient ambulatory with assist. IV salen lock, patent. Patient had Venous Duplex exam, on 04/24/18 the result is: Lef leg Acute DVT, left superrficial femoral to popliteal veins calf veins not well visualized, Right Lef: within normal limits; PM nurseKeon called Johan Green with the scheduled dialysis and also Dr Donato FREDERICK with the dialysis. Bed at lowest position, side rails up, call light within reach.
[2018-04-25] MEDS: Nephrovite tab (Rena-Vite) ORAL SCH (09:23)
[2018-04-25] MEDS: Allopurinol 100mg Tab ORAL SCH (09:23)
[2018-04-25] MEDS: Docusate 100mg cap ORAL SCH ×2 (09:23→19:01)
[2018-04-25] MEDS: cloNIDine 0.2mg Tab ORAL SCH ×2 (09:23→19:01)
[2018-04-25] MEDS: Pantoprazole Inj IVP SCH (09:24)
[2018-04-25] MEDS: Furosemide 80mg tab ORAL SCH (09:24)
[2018-04-25] MEDS: Heparin 5000 units/ml inj SUBQ SCH (09:31)
--- NOTE | 2018-04-25 11:55 | Diagnostic Imaging Report ---
Indications: Shortness of breath Technique: IV administration 5.5 mCi 99m technetium macroaggregated albumin. Images obtained over the lungs in multiple projections. Previously, patient inhaled 40 mCi aerosolized 99M technetium DTPA. Images obtained over the lungs in multiple projections Comparison: Reference made to chest radiograph dated 04/23/2018 Findings: Slightly heterogeneous perfusion, without evidence of focal segmental or subsegmental perfusion defect. The aerosol scan is more heterogeneous, and no evidence of perfusion aerosol mismatch demonstrated Impression: Findings deemed low probability for pulmonary embolus
--- NOTE | 2018-04-25 13:06 | Nephrology Progress Note ---
Assessment/Plan Problem List: (1) ESRD (end stage renal disease) (2) Diabetic infection of left foot (3) Acute DVT (deep venous thrombosis) Assessment: LLE (4) PVD (peripheral vascular disease) Plan HD today abxs DC Lasix add nephrovite anticoagulation Discussed with Dr Sewell Subjective Subjective feels ok Objective Objective Last 24 Hour Vital Signs Date Time Temp Pulse Resp B/P (MAP) Pulse Ox O2 Delivery O2 Flow Rate FiO2 04/25/18 09:24 104 152/95 04/25/18 09:23 152/95 04/25/18 09:00 Nasal Cannula 2.0 04/25/18 08:00 97.0 104 20 152/95 (114) 95 04/25/18 07:01 98 20 100 Nasal Cannula 2.0 28 04/25/18 06:53 Nasal Cannula 2.0 28 04/25/18 06:53 98 Nasal Cannula 2.0 28 04/25/18 06:51 101 20 98 Nasal Cannula 2.0 28 04/25/18 04:00 98.6 96 20 138/78 (98) 98 04/25/18 03:16 103 22 97 Facial 30 04/25/18 01:29 97 20 98 Nasal Cannula 2.0 28 04/25/18 01:19 95 22 95 Nasal Cannula 2.0 28 04/25/18 00:00 98.7 94 20 132/77 (95) 99 04/24/18 23:15 94 21 99 Facial 30 04/24/18 21:00 Nasal Cannula 2.0 04/24/18 20:00 98.6 96 20 128/73 (91) 98 04/24/18 19:52 95 20 99 Nasal Cannula 2.0 28 04/24/18 19:42 93 Nasal Cannula 2.0 28 04/24/18 19:42 Nasal Cannula 2.0 28 04/24/18 19:42 96 20 93 Nasal Cannula 2.0 28 04/24/18 17:46 153/94 04/24/18 15:40 96 14 100 Nasal Cannula 2.0 28 04/24/18 15:30 90 14 100 Nasal Cannula 2.0 28 Intake and Output 04/24/18 04/25/18 18:59 06:59 Intake Total 960 ml 855 ml Balance 960 ml 855 ml Intake Oral 960 ml 800 ml IV Total 55 ml # Voids 3 2 # Bowel Movements 1 Laboratory Tests 04/24/18 18:40: Random Vancomycin Level 17.0 Height (Feet): 5 Height (Inches): 7.00 Weight (Pounds): 232 Cardiovascular: normal rate Respiratory/Chest: lungs clear Extremities: severe edema - Johan De MD Apr 25, 2018 13:06
[2018-04-25 13:48] LABS: HEMATOCRIT 26.6 % (42.0-52.0); MEAN CORPUSCULAR VOLUME 94 FL (80-99); PLATELET COUNT 58 K/UL (150-450); RED BLOOD COUNT 2.83 M/UL (4.70-6.10); RED CELL DISTRIBUTION WIDTH 19.4 % (11.6-14.8); WHITE BLOOD COUNT 5.8 K/UL (4.8-10.8)
--- NOTE | 2018-04-25 13:51 | Consultation ---
Consult Note Assessment/Plan #[id number] Johan Harper MD Apr 25, 2018 13:51
[2018-04-25 14:02] LABS: ANION GAP 12 mmol/L (5-15); BLOOD UREA NITROGEN 57 mg/dL (7-18); CALCIUM 9.2 MG/DL (8.5-10.1); CARBON DIOXIDE 26 MMOL/L (21-32); CHLORIDE 98 MMOL/L (98-107); CREATININE 7.1 MG/DL (0.55-1.30); POTASSIUM 4.7 MMOL/L (3.5-5.1); SODIUM 136 MMOL/L (136-145)
--- NOTE | 2018-04-25 14:26 | Consultation ---
History of Present Illness General Date patient seen: Apr 25, 2018 Chief Complaint: General Complaint Referring physician: Dr. Moe Sewell Reason for Consultation: Shortness of breath and CHU Present Illness Allergies: Coded Allergies: NO KNOWN DRUG ALLERGIES (Verified Allergy, Unknown, 03/06/18) Medication History Scheduled Allopurinol* (Allopurinol*), 300 MG ORAL DAILY, (Reported) Amlodipine Besylate* (Amlodipine Besylate*), 5 MG ORAL DAILY, (Reported) Carvedilol* (Carvedilol*), 12.5 MG ORAL DAILY, (Reported) Cinacalcet* (Sensipar*), 30 MG ORAL DAILY, (Reported) Clonidine Hcl* (Catapres*), 0.2 MG ORAL TWICE A DAY, (Reported) Finasteride* (Proscar*), 5 MG ORAL DAILY, (Reported) Furosemide* (Lasix*), 80 MG ORAL DAILY, (Reported) Gabapentin* (Gabapentin*), 300 MG ORAL THREE TIMES A DAY, (Reported) Losartan Potassium* (Losartan Potassium*), 50 MG ORAL DAILY, (Reported) Tamsulosin Hcl (Tamsulosin Hcl*), 0.4 MG ORAL BEDTIME, (Reported) Miscellaneous Medications Apixaban (Eliquis), 5 MG PO, (Reported) Folic Acid/Vitamin B Comp W-C (Mayda-Humberto Tablet), 0.8 MG PO, (Reported) Patient History Healthcare decision maker Heaven Gabriel Resuscitation status Advanced Directive on File No Physical Exam Last 24 Hour Vital Signs Date Time Temp Pulse Resp B/P (MAP) Pulse Ox O2 Delivery O2 Flow Rate FiO2 04/25/18 13:25 100 20 100 Nasal Cannula 2.0 28 04/25/18 13:17 99 22 100 Nasal Cannula 2.0 28 04/25/18 13:13 Nasal Cannula 2.0 04/25/18 09:24 104 152/95 04/25/18 09:23 152/95 04/25/18 09:00 Nasal Cannula 2.0 04/25/18 08:00 97.0 104 20 152/95 (114) 95 04/25/18 07:01 98 20 100 Nasal Cannula 2.0 28 04/25/18 06:53 Nasal Cannula 2.0 28 04/25/18 06:53 98 Nasal Cannula 2.0 28 04/25/18 06:51 101 20 98 Nasal Cannula 2.0 28 04/25/18 04:00 98.6 96 20 138/78 (98) 98 04/25/18 03:16 103 22 97 Facial 30 04/25/18 01:29 97 20 98 Nasal Cannula 2.0 28 04/25/18 01:19 95 22 95 Nasal Cannula 2.0 28 04/25/18 00:00 98.7 94 20 132/77 (95) 99 04/24/18 23:15 94 21 99 Facial 30 04/24/18 21:00 Nasal Cannula 2.0 04/24/18 20:00 98.6 96 20 128/73 (91) 98 04/24/18 19:52 95 20 99 Nasal Cannula 2.0 28 04/24/18 19:42 93 Nasal Cannula 2.0 28 04/24/18 19:42 Nasal Cannula 2.0 28 04/24/18 19:42 96 20 93 Nasal Cannula 2.0 28 04/24/18 17:46 153/94 04/24/18 15:40 96 14 100 Nasal Cannula 2.0 28 04/24/18 15:30 90 14 100 Nasal Cannula 2.0 28 Intake and Output 04/24/18 04/25/18 18:59 06:59 Intake Total 960 ml 855 ml Balance 960 ml 855 ml Intake Oral 960 ml 800 ml IV Total 55 ml # Voids 3 2 # Bowel Movements 1 Laboratory Tests Test 04/24/18 18:40 04/25/18 13:40 Random Vancomycin Level 17.0 ug/mL White Blood Count 5.8 K/UL (4.8-10.8) Red Blood Count 2.83 M/UL (4.70-6.10) L Hemoglobin 8.0 G/DL (14.2-18.0) L Hematocrit 26.6 % (42.0-52.0) L Mean Corpuscular Volume 94 FL (80-99) Mean Corpuscular Hemoglobin 28.2 PG (27.0-31.0) Mean Corpuscular Hemoglobin Concent 30.0 G/DL (32.0-36.0) L Red Cell Distribution Width 19.4 % (11.6-14.8) H Platelet Count 58 K/UL (150-450) L Mean Platelet Volume 7.8 FL (6.5-10.1) Neutrophils (%) (Auto) % (45.0-75.0) Lymphocytes (%) (Auto) % (20.0-45.0) Monocytes (%) (Auto) % (1.0-10.0) Eosinophils (%) (Auto) % (0.0-3.0) Basophils (%) (Auto) % (0.0-2.0) Neutrophils % (Manual) Pending Lymphocytes % (Manual) Pending Platelet Estimate Pending Platelet Morphology Pending Sodium Level 136 MMOL/L (136-145) Potassium Level 4.7 MMOL/L (3.5-5.1) Chloride Level 98 MMOL/L (98-107) Carbon Dioxide Level 26 MMOL/L (21-32) Anion Gap 12 mmol/L (5-15) Blood Urea Nitrogen 57 mg/dL (7-18) H Creatinine 7.1 MG/DL (0.55-1.30) H Estimat Glomerular Filtration Rate 9.5 mL/min (>60) Glucose Level 124 MG/DL (74-106) H Calcium Level 9.2 MG/DL (8.5-10.1) Height (Feet): 5 Height (Inches): 7.00 Weight (Pounds): 232 Medications Current Medications Medications (Trade) Dose Ordered Sig/Oliverio Route PRN Reason Start Time Stop Time Status Last Admin Dose Admin Acetaminophen (Tylenol) 650 mg Q6H PRN ORAL Mild Pain/Temp > 100.5 04/23/18 22:30 05/23/18 22:29 Acetaminophen/ Hydrocodone Bitart (Rembert 10/325) 1 tab Q6H PRN ORAL For Pain 04/23/18 22:30 04/30/18 22:29 04/25/18 04:46 Al Hydroxide/Mg Hydroxide (Mylanta) 30 ml BID PRN ORAL Constipation 04/23/18 22:30 05/23/18 22:29 Albuterol/ Ipratropium (Albuterol/ Ipratropium) 3 ml Q6HRT HHN 04/24/18 15:15 04/29/18 15:14 04/25/18 13:17 Allopurinol (Zyloprim) 100 mg DAILY ORAL 04/24/18 09:00 05/24/18 08:59 04/25/18 09:23 Amlodipine Besylate (Norvasc) 5 mg DAILY ORAL 04/24/18 09:00 05/24/18 08:59 04/25/18 09:24 Clonidine HCl (Catapres tab) 0.2 mg BID ORAL 04/23/18 22:30 05/23/18 22:29 04/25/18 09:23 Dextrose (Dextrose 50%) 25 ml Q30M PRN IV Hypoglycemia 04/23/18 23:00 05/23/18 22:59 Dextrose (Dextrose 50%) 50 ml Q30M PRN IV Hypoglycemia 04/23/18 23:00 05/23/18 22:59 Docusate Sodium (Colace) 100 mg TWICE A DAY ORAL 04/24/18 09:00 05/24/18 08:59 04/25/18 09:23 Finasteride (Proscar) 5 mg DAILY ORAL 04/24/18 09:00 05/24/18 08:59 04/25/18 09:24 Gabapentin (Neurontin) 300 mg DAILY ORAL 04/24/18 09:00 05/24/18 08:59 04/25/18 09:23 Heparin Sodium (Porcine) (Heparin 5000 units/ml) 4,000 units ONCE IV 04/25/18 18:00 04/25/18 19:00 Heparin Sodium (Porcine) (Heparin Sod 1000 units/ml 10ml) 500 unit ONCE PRN IV FOR HD USE ONLY 04/24/18 19:00 04/26/18 23:59 Heparin Sodium/ Dextrose 500 ml @ 37.888 mls/ hr ADJUST PER PROTOCOL IV 04/25/18 18:00 05/25/18 17:59 Insulin Aspart (NovoLOG) BEFORE MEALS AND HS SUBQ 04/24/18 06:30 05/24/18 06:29 04/24/18 21:14 Lidocaine HCl (Xylocaine 1% 30ml) 30 ml NOW PRN INJ Radiology Procedure 04/25/18 14:30 04/28/18 14:16 UNV Meropenem 500 mg/ Sodium Chloride 55 ml @ 110 mls/hr Q24H IVPB 04/23/18 21:00 04/28/18 20:59 04/24/18 21:10 Pantoprazole (Protonix) 40 mg DAILY IVP 04/24/18 09:00 05/24/18 08:59 04/25/18 09:24 Sodium Chloride 1,000 ml @ 500 mls/hr Q2H PRN IVLG sbp<90 during hd 04/24/18 18:32 04/26/18 23:59 Tamsulosin HCl (Flomax) 0.4 mg BEDTIME ORAL 04/23/18 23:45 05/23/18 23:44 04/24/18 21:09 Valacyclovir HCl (Valtrex) 500 mg Q24H ORAL 04/24/18 16:00 05/24/18 15:59 04/24/18 17:45 Vancomycin HCl (Vanco rx to dose) 1 ea DAILY PRN MISC Per rx protocol 04/23/18 18:15 05/23/18 18:14 Vancomycin HCl 1 gm/Dextrose 275 ml @ 183.708 mls/hr ONCE IVPB 04/25/18 21:00 04/25/18 23:00 Vitamin B Complex/ Vit C/Folic Acid (Nephrovite) 1 tab DAILY ORAL 04/26/18 09:00 05/26/18 08:59 Assessment/Plan Assessment/Plan Hematology Consultation Chief Complaint: Shortness of breath Referring physician: Dr. Sewell Reason for Consultation: Dvt, low plt, anemia DOS: 04/25/18 HPI 67 y/o male w/ DM, ESRD on HD, COPD, CHU, CHF, L foot/leg ulcer admitted for further treatment of diabetic foot wound. He has had increasing shortness of breath with minimal exertion x 1 month. Cannot lay flat. No wheezing. Given neb treatments and felt better afterward. Given CPAP 10 here and feels pressure is higher and feels better with it. Quit smoking several months ago was smoking 1/2 ppd x 50 years. Has been seen by several consultants and heme now consulted given dvt study results and anemia and low platelets. Allergies: Coded Allergies: NO KNOWN DRUG ALLERGIES (Verified Allergy, Unknown, 03/06/18) Meds Scheduled Allopurinol* (Allopurinol*), 300 MG ORAL DAILY, (Reported) Amlodipine Besylate* (Amlodipine Besylate*), 5 MG ORAL DAILY, (Reported) Carvedilol* (Carvedilol*), 12.5 MG ORAL DAILY, (Reported) Cinacalcet* (Sensipar*), 30 MG ORAL DAILY, (Reported) Clonidine Hcl* (Catapres*), 0.2 MG ORAL TWICE A DAY, (Reported) Finasteride* (Proscar*), 5 MG ORAL DAILY, (Reported) Furosemide* (Lasix*), 80 MG ORAL DAILY, (Reported) Gabapentin* (Gabapentin*), 300 MG ORAL THREE TIMES A DAY, (Reported) Losartan Potassium* (Losartan Potassium*), 50 MG ORAL DAILY, (Reported) Tamsulosin Hcl (Tamsulosin Hcl*), 0.4 MG ORAL BEDTIME, (Reported) Miscellaneous Medications Apixaban (Eliquis), 5 MG PO, (Reported) Folic Acid/Vitamin B Comp W-C (Mayda-Humberto Tablet), 0.8 MG PO, (Reported) History Provided By: Patient Healthcare decision maker Heaven Gabriel Resuscitation status Advanced Directive on File No Past Medical/Surgical History: (1) ESRD (end stage renal disease) (2) Diabetic foot infection (3) Diabetic infection of left foot ROS Constitutional: Reports: no symptoms Eye: Reports: no symptoms ENT: Reports: no symptoms Respiratory: Reports: orthopnea, shortness of breath, wheezing, [id number] Cardiovascular: Reports: edema, PND Gastrointestinal: Reports: no symptoms Genitourinary: Reports: no symptoms Musculoskeletal: Reports: no symptoms Psychiatric: Reports: no symptoms Physical Exam General Appearance: no apparent distress HEENT: mucous membranes moist, PERRL Neck: supple Respiratory/Chest: decreased breath sounds, crackles/rales Cardiovascular/Chest: normal rate, regular rhythm Abdomen: non tender, soft Extremities: other - L foot/ankle wrapped. Edema in b/l LE Last 24 Hour Vital Signs Date Time Temp Pulse Resp B/P (MAP) Pulse Ox O2 Delivery O2 Flow Rate FiO2 04/25/18 13:25 100 20 100 Nasal Cannula 2.0 28 04/25/18 13:17 99 22 100 Nasal Cannula 2.0 28 04/25/18 13:13 Nasal Cannula 2.0 04/25/18 09:24 104 152/95 04/25/18 09:23 152/95 04/25/18 09:00 Nasal Cannula 2.0 04/25/18 08:00 97.0 104 20 152/95 (114) 95 04/25/18 07:01 98 20 100 Nasal Cannula 2.0 28 04/25/18 06:53 Nasal Cannula 2.0 28 04/25/18 06:53 98 Nasal Cannula 2.0 28 04/25/18 06:51 101 20 98 Nasal Cannula 2.0 28 04/25/18 04:00 98.6 96 20 138/78 (98) 98 04/25/18 03:16 103 22 97 Facial 30 04/25/18 01:29 97 20 98 Nasal Cannula 2.0 28 04/25/18 01:19 95 22 95 Nasal Cannula 2.0 28 04/25/18 00:00 98.7 94 20 132/77 (95) 99 04/24/18 23:15 94 21 99 Facial 30 04/24/18 21:00 Nasal Cannula 2.0 04/24/18 20:00 98.6 96 20 128/73 (91) 98 04/24/18 19:52 95 20 99 Nasal Cannula 2.0 28 04/24/18 19:42 93 Nasal Cannula 2.0 28 04/24/18 19:42 Nasal Cannula 2.0 28 04/24/18 19:42 96 20 93 Nasal Cannula 2.0 28 04/24/18 17:46 153/94 04/24/18 15:40 96 14 100 Nasal Cannula 2.0 28 04/24/18 15:30 90 14 100 Nasal Cannula 2.0 28 Intake and Output 04/23/18 04/24/18 19:00 07:00 Intake Total 400 ml Balance 400 ml Intake Oral 400 ml # Bowel Movements 2 Laboratory Tests Test 04/23/18 16:40 04/24/18 06:35 White Blood Count 5.6 K/UL (4.8-10.8) 4.5 K/UL (4.8-10.8) L Red Blood Count 2.84 M/UL (4.70-6.10) L 2.83 M/UL (4.70-6.10) L Hemoglobin 8.2 G/DL (14.2-18.0) L 8.2 G/DL (14.2-18.0) L Hematocrit 26.4 % (42.0-52.0) L 26.9 % (42.0-52.0) L Mean Corpuscular Volume 93 FL (80-99) 95 FL (80-99) Mean Corpuscular Hemoglobin 29.0 PG (27.0-31.0) 28.8 PG (27.0-31.0) Mean Corpuscular Hemoglobin Concent 31.2 G/DL (32.0-36.0) L 30.4 G/DL (32.0-36.0) L Red Cell Distribution Width 19.5 % (11.6-14.8) H 18.8 % (11.6-14.8) H Platelet Count 66 K/UL (150-450) L 63 K/UL (150-450) L Mean Platelet Volume 7.6 FL (6.5-10.1) 8.1 FL (6.5-10.1) Neutrophils (%) (Auto) % (45.0-75.0) % (45.0-75.0) Lymphocytes (%) (Auto) % (20.0-45.0) % (20.0-45.0) Monocytes (%) (Auto) % (1.0-10.0) % (1.0-10.0) Eosinophils (%) (Auto) % (0.0-3.0) % (0.0-3.0) Basophils (%) (Auto) % (0.0-2.0) % (0.0-2.0) Differential Total Cells Counted 100 100 Neutrophils % (Manual) 76 % (45-75) H 79 % (45-75) H Lymphocytes % (Manual) 13 % (20-45) L 8 % (20-45) L Monocytes % (Manual) 7 % (1-10) 9 % (1-10) Eosinophils % (Manual) 2 % (0-3) 3 % (0-3) Basophils % (Manual) 0 % (0-2) 1 % (0-2) Band Neutrophils 2 % (0-8) 0 % (0-8) Platelet Estimate Decreased L Decreased L Platelet Morphology Normal Normal Polychromasia 1+ Hypochromasia 2+ 2+ Anisocytosis 1+ 2+ Sodium Level 139 MMOL/L (136-145) 139 MMOL/L (136-145) Potassium Level 3.6 MMOL/L (3.5-5.1) 4.1 MMOL/L (3.5-5.1) Chloride Level 100 MMOL/L (98-107) 100 MMOL/L (98-107) Carbon Dioxide Level 30 MMOL/L (21-32) 29 MMOL/L (21-32) Anion Gap 9 mmol/L (5-15) 10 mmol/L (5-15) Blood Urea Nitrogen 36 mg/dL (7-18) H 45 mg/dL (7-18) H Creatinine 5.5 MG/DL (0.55-1.30) H 6.7 MG/DL (0.55-1.30) H Estimat Glomerular Filtration Rate 12.7 mL/min (>60) 10.2 mL/min (>60) Glucose Level 151 MG/DL (74-106) H 96 MG/DL (74-106) Lactic Acid Level 1.70 mmol/L (0.4-2.0) Calcium Level 9.6 MG/DL (8.5-10.1) 8.8 MG/DL (8.5-10.1) Total Bilirubin 0.4 MG/DL (0.2-1.0) 0.5 MG/DL (0.2-1.0) Aspartate Amino Transf (AST/SGOT) 19 U/L (15-37) 20 U/L (15-37) Alanine Aminotransferase (ALT/SGPT) 17 U/L (12-78) 6 U/L (12-78) L Alkaline Phosphatase 134 U/L (46-116) H 127 U/L (46-116) H Troponin I 0.047 ng/mL (0.000-0.056) 0.057 ng/mL (0.000-0.056) Total Protein 7.3 G/DL (6.4-8.2) 6.9 G/DL (6.4-8.2) Albumin 3.1 G/DL (3.4-5.0) L 2.8 G/DL (3.4-5.0) L Globulin 4.2 g/dL 4.1 g/dL Albumin/Globulin Ratio 0.7 (1.0-2.7) L 0.7 (1.0-2.7) L Hemoglobin A1c 5.9 % (4.3-6.0) Pro-B-Type Natriuretic Peptide > 57886 pg/mL (0-125) H Triglycerides Level 49 MG/DL (30-150) Cholesterol Level 94 MG/DL (< 200) LDL Cholesterol 40 mg/dL (<100) HDL Cholesterol 51 MG/DL (40-60) Cholesterol/HDL Ratio 1.8 (3.3-4.4) L Thyroid Stimulating Hormone (TSH) 1.657 uiU/mL (0.358-3.740) Microbiology Date/Time Source Procedure Growth Status 04/23/18 16:40 Blood Blood Culture - Preliminary Resulted Height (Feet): 5 Height (Inches): 7.00 Weight (Pounds): 190 Medications Current Medications Medications (Trade) Dose Ordered Sig/Oliverio Route PRN Reason Start Time Stop Time Status Last Admin Dose Admin Acetaminophen (Tylenol) 650 mg Q6H PRN ORAL Mild Pain/Temp > 100.5 04/23/18 22:30 05/23/18 22:29 Acetaminophen/ Hydrocodone Bitart (Rembert 10/325) 1 tab Q6H PRN ORAL For Pain 04/23/18 22:30 04/30/18 22:29 04/23/18 23:35 Al Hydroxide/Mg Hydroxide (Mylanta) 30 ml BID PRN ORAL Constipation 04/23/18 22:30 05/23/18 22:29 Albuterol/ Ipratropium (Albuterol/ Ipratropium) 3 ml Q4HRT N 04/23/18 23:00 04/28/18 22:59 04/24/18 03:39 Albuterol/ Ipratropium (Albuterol/ Ipratropium) 3 ml Q6HRT N 04/24/18 15:15 04/29/18 15:14 UNV Allopurinol (Zyloprim) 100 mg DAILY ORAL 04/24/18 09:00 05/24/18 08:59 04/24/18 10:13 Amlodipine Besylate (Norvasc) 5 mg DAILY ORAL 04/24/18 09:00 05/24/18 08:59 04/24/18 10:13 Clonidine HCl (Catapres tab) 0.2 mg BID ORAL 04/23/18 22:30 05/23/18 22:29 04/24/18 10:13 Dextrose (Dextrose 50%) 25 ml Q30M PRN IV Hypoglycemia 04/23/18 23:00 05/23/18 22:59 Dextrose (Dextrose 50%) 50 ml Q30M PRN IV Hypoglycemia 04/23/18 23:00 05/23/18 22:59 Docusate Sodium (Colace) 100 mg TWICE A DAY ORAL 04/24/18 09:00 05/24/18 08:59 04/24/18 10:13 Finasteride (Proscar) 5 mg DAILY ORAL 04/24/18 09:00 05/24/18 08:59 04/24/18 10:12 Furosemide (Lasix) 80 mg DAILY ORAL 04/24/18 09:00 05/24/18 08:59 04/24/18 10:13 Gabapentin (Neurontin) 300 mg DAILY ORAL 04/24/18 09:00 05/24/18 08:59 04/24/18 10:13 Heparin Sodium (Porcine) (Heparin 5000 units/ml) 5,000 units EVERY 12 HOURS SUBQ 04/24/18 21:00 05/24/18 20:59 Insulin Aspart (NovoLOG) BEFORE MEALS AND HS SUBQ 04/24/18 06:30 05/24/18 06:29 Meropenem 500 mg/ Sodium Chloride 55 ml @ 110 mls/hr Q24H IVPB 04/23/18 21:00 04/28/18 20:59 04/23/18 22:08 Pantoprazole (Protonix) 40 mg DAILY IVP 04/24/18 09:00 05/24/18 08:59 04/24/18 10:13 Tamsulosin HCl (Flomax) 0.4 mg BEDTIME ORAL 04/23/18 23:45 05/23/18 23:44 04/23/18 23:35 Valacyclovir HCl (Valtrex) 500 mg Q24H ORAL 04/24/18 16:00 05/24/18 15:59 Vancomycin HCl (Vanco rx to dose) 1 ea DAILY PRN MISC Per rx protocol 04/23/18 18:15 05/23/18 18:14 Vitamin B Complex/ Vit C/Folic Acid (Nephrovite) 1 tab DAILY ORAL 04/24/18 09:00 05/24/18 08:59 04/24/18 10:13 Objective Narrative CXR review with pulmonary vascular congestion Assessment/Plan Assessment/Plan Problem List: # DVT of the deep veins superficial and politeal of the left leg --> VQ scan shows low probability of dvt --> remains with anemia and low platelets therefore contraindication for anticoagulation --> RECOMMEND Ivc filter if okay with primary physician # Anemia of chronic disease --> obtain workup, results have been ordered with ferritin tibc, esr, crp --> hgb goal >7, transfuse as needed --> peripheral smear to be reviewed # Thrombocytopenia -- plt goal >20k, transfuse as required --> plt trend in the 66k-->63k-->58k --> hep and hiv ordered # Acute CHF exacerbation/pulmonary edema --> as per pulm # COPD w/o obvious exacerbation # CHU # ESRD on HD # Hx multiple amputations # Diabetic foot infection --> as per ID # Acute CHF exacerbation/pulmonary edema # COPD w/o obvious exacerbation Time of note does not necessarily reflect time of encounter Greatly appreciate consultation! Juve Soto MD Apr 25, 2018 14:26
[2018-04-25] MEDS ORDERED: Lidocaine 1% Plain 30 ml INJ PRN (14:30)
--- NOTE | 2018-04-25 14:32 | NUR ---
NURSE NOTES: Patient is getting dialysis.
[2018-04-25 14:33] LABS: INR 1.1 (0.9-1.1)
[2018-04-25 15:42] LABS: BILIRUBIN,DIRECT 0.2 MG/DL (0.0-0.3); BILIRUBIN,TOTAL 0.6 MG/DL (0.2-1.0); FERRITIN 1172 NG/ML (8-388); LACTATE DEHYDROGENASE 209 U/L (81-234)
[2018-04-25 15:56] LABS: % IRON SATURATION 15 % (15-50); IRON 30 ug/dL (50-175); TOTAL IRON BINDING CAPACITY 202 ug/dL (250-450)
--- NOTE | 2018-04-25 16:25 | Infectious Diseases Prog Note ---
Assessment/Plan Problems: (1) Acute osteomyelitis of metatarsal bone of left foot Assessment & Plan: continue meropenem and vancomycin treatment for 6 weeks pending final cultures. continue local wound care and dressings change as per senior oracle database developer. MAY NEED ANGIOPLASTY OF THE LEFT LEG ARTERIES TO IMPROVE HIS CHANCE OF RECOVERY (2) Achilles tendon infection Assessment & Plan: with open wound, already on wide spectrum antibiotics coverage , continue local wound care and dressings change , podiatry is following (3) Diabetic foot infection Assessment & Plan: continue wide spectrum antibiotics , with tight glycemic control. (4) ESRD (end stage renal disease) Assessment & Plan: on HD , consult renal (5) PVD (peripheral vascular disease) Assessment & Plan: recommend vascular eval for possible angioplasty of the left leg Subjective Constitutional: Reports: no symptoms HEENT: Reports: no symptoms Respiratory: Reports: no symptoms Breasts: Reports: no symptoms Cardiovascular: Reports: no symptoms Gastrointestinal/Abdominal: Reports: no symptoms Genitourinary: Reports: no symptoms Neurologic: Reports: no symptoms Psychiatric: Reports: no symptoms Skin: Reports: ulcer Endocrine: Reports: no symptoms Hematologic: Reports: no symptoms Musculoskeletal: Reports: pain, swelling Allergies: Coded Allergies: NO KNOWN DRUG ALLERGIES (Verified Allergy, Unknown, 03/06/18) Subjective he was feeling better after started on antibiotics with less pain and swelling in his left foot Objective Vital Signs Last 24 Hour Vital Signs Date Time Temp Pulse Resp B/P (MAP) Pulse Ox O2 Delivery O2 Flow Rate FiO2 04/25/18 13:25 100 20 100 Nasal Cannula 2.0 28 04/25/18 13:17 99 22 100 Nasal Cannula 2.0 28 04/25/18 13:13 Nasal Cannula 2.0 04/25/18 09:24 104 152/95 04/25/18 09:23 152/95 04/25/18 09:00 Nasal Cannula 2.0 04/25/18 08:00 97.0 104 20 152/95 (114) 95 04/25/18 07:01 98 20 100 Nasal Cannula 2.0 28 04/25/18 06:53 Nasal Cannula 2.0 28 04/25/18 06:53 98 Nasal Cannula 2.0 28 04/25/18 06:51 101 20 98 Nasal Cannula 2.0 28 04/25/18 04:00 98.6 96 20 138/78 (98) 98 04/25/18 03:16 103 22 97 Facial 30 04/25/18 01:29 97 20 98 Nasal Cannula 2.0 28 04/25/18 01:19 95 22 95 Nasal Cannula 2.0 28 04/25/18 00:00 98.7 94 20 132/77 (95) 99 04/24/18 23:15 94 21 99 Facial 30 04/24/18 21:00 Nasal Cannula 2.0 04/24/18 20:00 98.6 96 20 128/73 (91) 98 04/24/18 19:52 95 20 99 Nasal Cannula 2.0 28 04/24/18 19:42 93 Nasal Cannula 2.0 28 04/24/18 19:42 Nasal Cannula 2.0 28 04/24/18 19:42 96 20 93 Nasal Cannula 2.0 28 04/24/18 17:46 153/94 Height (Feet): 5 Height (Inches): 7.00 Weight (Pounds): 232 General Appearance: WD/WN, no acute distress HEENT: normocephalic, atraumatic, anicteric, mucous membranes moist, PERRL, EOMI, pharynx normal, supple, no JVD Respiratory/Chest: chest wall non-tender, lungs clear, normal breath sounds, no respiratory distress, no accessory muscle use Cardiovascular: normal peripheral pulses, normal rate, regular rhythm, no gallop/murmur, no JVD Abdomen: normal bowel sounds, soft, non tender, no organomegaly, non distended , no mass, no scars Extremities: no cyanosis, no clubbing Skin: no rash, no lesions, ulcers - LEFT FOOT METATARSAL OPEN WOUND WITH GOOD GRANULATION TISSUE , LEFT ACHILLIS TENDON OPEN WOUND Neurologic/Psychiatric: alert, responsive Lymphatic: no neck adenopathy, no groin adenopathy Musculoskeletal: no effusion Microbiology Date/Time Source Procedure Growth Status 04/23/18 16:40 Blood Blood Culture - Preliminary Staphylococcus Sp Coag Neg Resulted 04/23/18 16:25 Blood Blood Culture - Preliminary NO GROWTH AFTER 24 HOURS Resulted 04/24/18 13:16 Wound Gram Stain - Final Resulted 04/24/18 13:16 Wound Wound Culture - Preliminary Resulted Laboratory Tests Test 04/24/18 18:40 04/25/18 13:40 04/25/18 14:40 Random Vancomycin Level 17.0 ug/mL White Blood Count 5.8 K/UL (4.8-10.8) Pending Red Blood Count 2.83 M/UL (4.70-6.10) L Pending Hemoglobin 8.0 G/DL (14.2-18.0) L Pending Hematocrit 26.6 % (42.0-52.0) L Pending Mean Corpuscular Volume 94 FL (80-99) Pending Mean Corpuscular Hemoglobin 28.2 PG (27.0-31.0) Pending Mean Corpuscular Hemoglobin Concent 30.0 G/DL (32.0-36.0) L Pending Red Cell Distribution Width 19.4 % (11.6-14.8) H Pending Platelet Count 58 K/UL (150-450) L Pending Mean Platelet Volume 7.8 FL (6.5-10.1) Pending Neutrophils (%) (Auto) % (45.0-75.0) Pending Lymphocytes (%) (Auto) % (20.0-45.0) Pending Monocytes (%) (Auto) % (1.0-10.0) Pending Eosinophils (%) (Auto) % (0.0-3.0) Pending Basophils (%) (Auto) % (0.0-2.0) Pending Differential Total Cells Counted 100 Neutrophils % (Manual) 81 % (45-75) H Lymphocytes % (Manual) 6 % (20-45) L Monocytes % (Manual) 9 % (1-10) Eosinophils % (Manual) 4 % (0-3) H Basophils % (Manual) 0 % (0-2) Band Neutrophils 0 % (0-8) Platelet Estimate Decreased L Platelet Morphology Normal Hypochromasia 2+ Anisocytosis 2+ Sodium Level 136 MMOL/L (136-145) Pending Potassium Level 4.7 MMOL/L (3.5-5.1) Pending Chloride Level 98 MMOL/L (98-107) Pending Carbon Dioxide Level 26 MMOL/L (21-32) Pending Anion Gap 12 mmol/L (5-15) Blood Urea Nitrogen 57 mg/dL (7-18) H Pending Creatinine 7.1 MG/DL (0.55-1.30) H Pending Estimat Glomerular Filtration Rate 9.5 mL/min (>60) Pending Glucose Level 124 MG/DL (74-106) H Pending Calcium Level 9.2 MG/DL (8.5-10.1) Pending Hemoglobin A Pending Hemoglobin A2 Pending Hemoglobin C Pending Hemoglobin F () Pending Hemoglobin S Pending Variant Hemoglobin Pending Hemoglobin Electrophoresis Interp Pending Hemoglobin Interpretation Pending Hemoglobin Solubility Pending Haptoglobin Pending Prothrombin Time 11.3 SEC (9.30-11.50) Prothromb Time International Ratio 1.1 (0.9-1.1) Activated Partial Thromboplast Time 42 SEC (23-33) H Iron Level 30 ug/dL (50-175) L Total Iron Binding Capacity 202 ug/dL (250-450) L Percent Iron Saturation 15 % (15-50) Unsaturated Iron Binding 172 ug/dL (112-346) Ferritin 1172 NG/ML (8-388) H Total Bilirubin 0.6 MG/DL (0.2-1.0) Direct Bilirubin 0.2 MG/DL (0.0-0.3) Lactate Dehydrogenase 209 U/L (81-234) Vitamin B12 Level 919 PG/ML (193-986) Thyroid Stimulating Hormone (TSH) 1.214 uiU/mL (0.358-3.740) Hepatitis A IgM Antibody Pending Hepatitis B Surface Antigen Pending Hepatitis B Core IgM Antibody Pending Hepatitis C Antibody Pending HIV (1&2) Antibody Rapid Pending Current Medications Medications (Trade) Dose Ordered Sig/Oliverio Route PRN Reason Start Time Stop Time Status Last Admin Dose Admin Acetaminophen (Tylenol) 650 mg Q6H PRN ORAL Mild Pain/Temp > 100.5 04/23/18 22:30 05/23/18 22:29 Acetaminophen/ Hydrocodone Bitart ([place] [address]) 1 tab Q6H PRN ORAL For Pain 04/23/18 22:30 04/30/18 22:29 04/25/18 04:46 Al Hydroxide/Mg Hydroxide (Mylanta) 30 ml BID PRN ORAL Constipation 04/23/18 22:30 05/23/18 22:29 Albuterol/ Ipratropium (Albuterol/ Ipratropium) 3 ml Q6HRT HHN 04/24/18 15:15 04/29/18 15:14 04/25/18 13:17 Allopurinol (Zyloprim) 100 mg DAILY ORAL 04/24/18 09:00 05/24/18 08:59 04/25/18 09:23 Amlodipine Besylate (Norvasc) 5 mg DAILY ORAL 04/24/18 09:00 05/24/18 08:59 04/25/18 09:24 Clonidine HCl (Catapres tab) 0.2 mg BID ORAL 04/23/18 22:30 05/23/18 22:29 04/25/18 09:23 Dextrose (Dextrose 50%) 25 ml Q30M PRN IV Hypoglycemia 04/23/18 23:00 05/23/18 22:59 Dextrose (Dextrose 50%) 50 ml Q30M PRN IV Hypoglycemia 04/23/18 23:00 05/23/18 22:59 Docusate Sodium (Colace) 100 mg TWICE A DAY ORAL 04/24/18 09:00 05/24/18 08:59 04/25/18 09:23 Finasteride (Proscar) 5 mg DAILY ORAL 04/24/18 09:00 05/24/18 08:59 04/25/18 09:24 Gabapentin (Neurontin) 300 mg DAILY ORAL 04/24/18 09:00 05/24/18 08:59 04/25/18 09:23 Heparin Sodium (Porcine) (Heparin 5000 units/ml) 4,000 units ONCE IV 04/25/18 18:00 04/25/18 19:00 Heparin Sodium (Porcine) (Heparin Sod 1000 units/ml 10ml) 500 unit ONCE PRN IV FOR HD USE ONLY 04/24/18 19:00 04/26/18 23:59 Heparin Sodium/ Dextrose 500 ml @ 37.888 mls/ hr ADJUST PER PROTOCOL IV 04/25/18 18:00 05/25/18 17:59 Insulin Aspart (NovoLOG) BEFORE MEALS AND HS SUBQ 04/24/18 06:30 05/24/18 06:29 04/24/18 21:14 Lidocaine HCl (Xylocaine 1% 30ml) 30 ml NOW PRN INJ Radiology Procedure 04/25/18 14:30 04/26/18 23:59 Meropenem 500 mg/ Sodium Chloride 55 ml @ 110 mls/hr Q24H IVPB 04/23/18 21:00 04/28/18 20:59 04/24/18 21:10 Pantoprazole (Protonix) 40 mg DAILY IVP 04/24/18 09:00 05/24/18 08:59 04/25/18 09:24 Sodium Chloride 1,000 ml @ 500 mls/hr Q2H PRN IVLG sbp<90 during hd 04/24/18 18:32 04/26/18 23:59 Tamsulosin HCl (Flomax) 0.4 mg BEDTIME ORAL 04/23/18 23:45 05/23/18 23:44 04/24/18 21:09 Valacyclovir HCl (Valtrex) 500 mg Q24H ORAL 04/24/18 16:00 05/24/18 15:59 04/24/18 17:45 Vancomycin HCl (Vanco rx to dose) 1 ea DAILY PRN MISC Per rx protocol 04/23/18 18:15 05/23/18 18:14 Vancomycin HCl 1 gm/Dextrose 275 ml @ 183.708 mls/hr ONCE IVPB 04/25/18 21:00 04/25/18 23:00 Vitamin B Complex/ Vit C/Folic Acid (Nephrovite) 1 tab DAILY ORAL 04/26/18 09:00 05/26/18 08:59 Jaime Casey M.D. Apr 25, 2018 16:25
--- NOTE | 2018-04-25 16:52 | Cardiac Electrophysiology PN ---
Assessment/Plan Status Narrative Normal left ventricular chamber size, systolic function and wall motion. Left ventricular ejection fraction estimated to be 60-65 %. Moderate left ventricular hypertrophy by 2-D. Small posterior pericardial effusion. Moderate left atrial enlargement. Mild right atrial enlargement. Right ventricular chamber size is within normal limits. Moderate aortic valve calcification with decreased cusp excursion c/w aortic stenosis. Moderately thickened mitral valve leaflets with normal excursion. Mitral annulus and aortic root calcification. Pulmonic valve not well visualized. Normal tricuspid valve structure. IVC dilated at 2.4 cm with slight physiologic collapse suggestive of in Assessment/Plan 1. Congestive heart failure. BNP of more than 35,000. The patient is already on hemodialysis. EF 65% 2. Troponin elevation. Troponin of 0.057. First troponin was negative at 0.047. It could be due to renal failure. The patient does not have any chest pain. Echocardiogram EF 65%. 3. Hypertension. The patient is on hemodialysis, on Norvasc 5 mg daily and clonidine 0.2 mg b.i.d. 4. Lower extremity cellulitis, on meropenem and vancomycin. 5. Morbid obesity. 6. Peripheral vascular disease. Subjective Subjective No events on NMB. Objective Last 24 Hour Vital Signs Date Time Temp Pulse Resp B/P (MAP) Pulse Ox O2 Delivery O2 Flow Rate FiO2 04/25/18 13:25 100 20 100 Nasal Cannula 2.0 28 04/25/18 13:17 99 22 100 Nasal Cannula 2.0 28 04/25/18 13:13 Nasal Cannula 2.0 04/25/18 09:24 104 152/95 04/25/18 09:23 152/95 04/25/18 09:00 Nasal Cannula 2.0 04/25/18 08:00 97.0 104 20 152/95 (114) 95 04/25/18 07:01 98 20 100 Nasal Cannula 2.0 28 04/25/18 06:53 Nasal Cannula 2.0 28 04/25/18 06:53 98 Nasal Cannula 2.0 28 04/25/18 06:51 101 20 98 Nasal Cannula 2.0 28 04/25/18 04:00 98.6 96 20 138/78 (98) 98 04/25/18 03:16 103 22 97 Facial 30 04/25/18 01:29 97 20 98 Nasal Cannula 2.0 28 04/25/18 01:19 95 22 95 Nasal Cannula 2.0 28 04/25/18 00:00 98.7 94 20 132/77 (95) 99 04/24/18 23:15 94 21 99 Facial 30 04/24/18 21:00 Nasal Cannula 2.0 04/24/18 20:00 98.6 96 20 128/73 (91) 98 04/24/18 19:52 95 20 99 Nasal Cannula 2.0 28 04/24/18 19:42 93 Nasal Cannula 2.0 28 04/24/18 19:42 Nasal Cannula 2.0 28 04/24/18 19:42 96 20 93 Nasal Cannula 2.0 28 04/24/18 17:46 153/94 Intake and Output 04/24/18 04/25/18 18:59 06:59 Intake Total 960 ml 855 ml Balance 960 ml 855 ml Intake Oral 960 ml 800 ml IV Total 55 ml # Voids 3 2 # Bowel Movements 1 Laboratory Tests Test 04/24/18 18:40 04/25/18 13:40 04/25/18 14:40 Random Vancomycin Level 17.0 ug/mL White Blood Count 5.8 K/UL (4.8-10.8) Pending Red Blood Count 2.83 M/UL (4.70-6.10) L Pending Hemoglobin 8.0 G/DL (14.2-18.0) L Pending Hematocrit 26.6 % (42.0-52.0) L Pending Mean Corpuscular Volume 94 FL (80-99) Pending Mean Corpuscular Hemoglobin 28.2 PG (27.0-31.0) Pending Mean Corpuscular Hemoglobin Concent 30.0 G/DL (32.0-36.0) L Pending Red Cell Distribution Width 19.4 % (11.6-14.8) H Pending Platelet Count 58 K/UL (150-450) L Pending Mean Platelet Volume 7.8 FL (6.5-10.1) Pending Neutrophils (%) (Auto) % (45.0-75.0) Pending Lymphocytes (%) (Auto) % (20.0-45.0) Pending Monocytes (%) (Auto) % (1.0-10.0) Pending Eosinophils (%) (Auto) % (0.0-3.0) Pending Basophils (%) (Auto) % (0.0-2.0) Pending Differential Total Cells Counted 100 Neutrophils % (Manual) 81 % (45-75) H Lymphocytes % (Manual) 6 % (20-45) L Monocytes % (Manual) 9 % (1-10) Eosinophils % (Manual) 4 % (0-3) H Basophils % (Manual) 0 % (0-2) Band Neutrophils 0 % (0-8) Platelet Estimate Decreased L Platelet Morphology Normal Hypochromasia 2+ Anisocytosis 2+ Sodium Level 136 MMOL/L (136-145) Pending Potassium Level 4.7 MMOL/L (3.5-5.1) Pending Chloride Level 98 MMOL/L (98-107) Pending Carbon Dioxide Level 26 MMOL/L (21-32) Pending Anion Gap 12 mmol/L (5-15) Blood Urea Nitrogen 57 mg/dL (7-18) H Pending Creatinine 7.1 MG/DL (0.55-1.30) H Pending Estimat Glomerular Filtration Rate 9.5 mL/min (>60) Pending Glucose Level 124 MG/DL (74-106) H Pending Calcium Level 9.2 MG/DL (8.5-10.1) Pending Hemoglobin A Pending Hemoglobin A2 Pending Hemoglobin C Pending Hemoglobin F () Pending Hemoglobin S Pending Variant Hemoglobin Pending Hemoglobin Electrophoresis Interp Pending Hemoglobin Interpretation Pending Hemoglobin Solubility Pending Haptoglobin Pending Prothrombin Time 11.3 SEC (9.30-11.50) Prothromb Time International Ratio 1.1 (0.9-1.1) Activated Partial Thromboplast Time 42 SEC (23-33) H Iron Level 30 ug/dL (50-175) L Total Iron Binding Capacity 202 ug/dL (250-450) L Percent Iron Saturation 15 % (15-50) Unsaturated Iron Binding 172 ug/dL (112-346) Ferritin 1172 NG/ML (8-388) H Total Bilirubin 0.6 MG/DL (0.2-1.0) Direct Bilirubin 0.2 MG/DL (0.0-0.3) Lactate Dehydrogenase 209 U/L (81-234) Vitamin B12 Level 919 PG/ML (193-986) Thyroid Stimulating Hormone (TSH) 1.214 uiU/mL (0.358-3.740) Hepatitis A IgM Antibody Pending Hepatitis B Surface Antigen Pending Hepatitis B Core IgM Antibody Pending Hepatitis C Antibody Pending HIV (1&2) Antibody Rapid Pending Microbiology Date/Time Source Procedure Growth Status 04/23/18 16:40 Blood Blood Culture - Preliminary Staphylococcus Sp Coag Neg Resulted 04/23/18 16:25 Blood Blood Culture - Preliminary NO GROWTH AFTER 24 HOURS Resulted 04/24/18 13:16 Wound Gram Stain - Final Resulted 04/24/18 13:16 Wound Wound Culture - Preliminary Resulted Objective HEAD AND NECK: No JVD. LUNGS: Decreased breath sounds. CARDIOVASCULAR: Regular S1 and S2 with no gallop. ABDOMEN: Soft. EXTREMITIES: Status post multiple amputations, 2+ lower extremity edema. Shelton Perdomo MD Apr 25, 2018 16:52
[2018-04-25] MEDS ORDERED: Tubing IV Secondary IV ONE (17:00)
[2018-04-25] MEDS ORDERED: NS 275ml ONE (17:00)
[2018-04-25] MEDS ORDERED: Heparin 5000 units/ml inj IV SCH (18:00)
[2018-04-25] MEDS ORDERED: Heparin 25,000u/D5W 500ml 500 ML IV SCH (18:00)
[2018-04-25 18:09] LABS: HEMATOCRIT 26.7 % (42.0-52.0); HEMOGLOBIN 8.2 G/DL (14.2-18.0); MEAN CORPUSCULAR VOLUME 95 FL (80-99); PLATELET COUNT 60 K/UL (150-450); RED BLOOD COUNT 2.82 M/UL (4.70-6.10); RED CELL DISTRIBUTION WIDTH 18.8 % (11.6-14.8); WHITE BLOOD COUNT 5.5 K/UL (4.8-10.8)
[2018-04-25 18:12] LABS: BASOPHILS % (AUTO) 0.7 % (0.0-2.0); EOSINOPHILS % (AUTO) 1.9 % (0.0-3.0); LYMPHOCYTES % (AUTO) 6.2 % (20.0-45.0); NEUTROPHILS % (AUTO) 84.2 % (45.0-75.0)
[2018-04-25 18:16] LABS: ANION GAP 13 mmol/L (5-15); BLOOD UREA NITROGEN 47 mg/dL (7-18); CALCIUM 9.3 MG/DL (8.5-10.1); CARBON DIOXIDE 27 MMOL/L (21-32); CHLORIDE 97 MMOL/L (98-107); CREATININE 6.5 MG/DL (0.55-1.30); POTASSIUM 4.6 MMOL/L (3.5-5.1); SODIUM 137 MMOL/L (136-145)
--- NOTE | 2018-04-25 19:15 | Consultation ---
DATE OF CONSULTATION: 04/24/2018 NEPHROLOGY CONSULTATION CONSULTING PHYSICIAN: Johan Harper M.D. REFERRING PHYSICIAN: Moe Sewell M.D. REASON FOR CONSULTATION: End-stage renal disease, requiring hemodialysis. HISTORY OF PRESENT ILLNESS: This is a 67-year-old male with end-stage renal disease as a result of diabetic nephropathy. The patient usually gets dialysis every Sunday, , and Sunday and he has been on dialysis for the past five years. He is status post multiple accesses and placement, and currently he has a left femoral fistula. The patient was admitted for nonhealing wound to the left lower extremity, and I was asked to see him because he would need dialysis. PAST MEDICAL HISTORY: Includes history of osteomyelitis of the left foot, history of transmetatarsal amputation with skin flap, history of obstructive sleep apnea, and diabetic neuropathy. He does not report diabetic retinopathy, although he said that he has implants in his eyes for lenses. 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 ALLERGIES: No known drug allergies. MEDICATIONS: Reviewed in the EMR. SOCIAL HISTORY: The patient used to smoke for a long time, but has not been smoking since last year. No history of alcohol abuse. He lives at home with kids. REVIEW OF SYSTEMS: Noncontributory. The patient is not making any urine. PHYSICAL EXAMINATION: GENERAL: The patient is a 67-year-old male, in no acute distress. VITAL SIGNS: Blood pressure is 152/95, pulse 104, respiratory rate 20, and temperature 97. HEENT: Pale conjunctivae. Anicteric sclerae. NECK: Supple. LUNGS: Clear to auscultation. HEART: S1, S2 without murmurs or rubs. ABDOMEN: Soft, nontender. EXTREMITIES: The left lower extremity is quite edematous and the left foot has a dressing on it. The left upper thigh there is a fistula with some pseudoaneurysms and there is good bruit. The right hand with missing fingers and also surgical scars on the right arm. LABORATORY FINDINGS: The CBC shows WBC of 4500, hematocrit 26.9, hemoglobin 8.2, and platelets 63,000. Chemistry panel shows a serum sodium 139, potassium 4.1, chloride 100, BUN 45, and creatinine 6.7. Albumin is 2.8. ASSESSMENT: This is a 67-year-old male, who was admitted with a nonhealing left foot infection and ulcers. The patient has history of end-stage renal disease, on hemodialysis every Sunday, , Sunday. He just had a ultrasound last night showing also he has a DVT left lower extremity, the femoral vein going down. He has some thrombocytopenia. He has diabetes and peripheral vascular disease. PLAN: The patient will be dialyzed today. The patient was started on IV heparin, although we have to watch his platelet count. I started the patient Nephro-Humberto one a day. Labs will be followed. Case was discussed with Dr. Sewell. Johan Harper M.D. DR: RIVAS JOB#: [id number] CC: MARU
--- NOTE | 2018-04-25 19:35 | NUR ---
NURSE NOTES: HAND-OFF: Report given to CLEVE Hawkins.
[2018-04-25 20:00] VITALS: BP 144/82
--- NOTE | 2018-04-25 20:18 | General Progress Note ---
Assessment/Plan Assessment/Plan cellulitis osteo myosisits renal failure on dialysis ho chf ho ermias thrombocytopenia dvt vq negative abx per ID podiatry fup wound care arterial study noted dw Dr Raygoza, vascular eval from Dr Jeronimoarian DVT dw Dr Platt, Dr Leroy Raygoza, starting heparin ggt, monitor anemia and platelet closeley, heme evaluation may alos need IVC filter dialysis dependent pulmonary fup cards fupecho noted monior platelets hgb dvt and ulcer prohylaxis Subjective Allergies: Coded Allergies: NO KNOWN DRUG ALLERGIES (Verified Allergy, Unknown, 03/06/18) Subjective above noted no sob no cough no cp Objective Last 24 Hour Vital Signs Date Time Temp Pulse Resp B/P (MAP) Pulse Ox O2 Delivery O2 Flow Rate FiO2 04/25/18 19:59 Nasal Cannula 2.0 28 04/25/18 19:58 98 Nasal Cannula 2.0 28 04/25/18 19:57 97 20 99 Nasal Cannula 2.0 28 04/25/18 19:01 152/95 04/25/18 17:26 97.0 04/25/18 13:25 100 20 100 Nasal Cannula 2.0 28 04/25/18 13:17 99 22 100 Nasal Cannula 2.0 28 04/25/18 13:13 Nasal Cannula 2.0 04/25/18 09:24 104 152/95 04/25/18 09:23 152/95 04/25/18 09:00 Nasal Cannula 2.0 04/25/18 08:00 97.0 104 20 152/95 (114) 95 04/25/18 07:01 98 20 100 Nasal Cannula 2.0 28 04/25/18 06:53 Nasal Cannula 2.0 28 04/25/18 06:53 98 Nasal Cannula 2.0 28 04/25/18 06:51 101 20 98 Nasal Cannula 2.0 28 04/25/18 04:00 98.6 96 20 138/78 (98) 98 04/25/18 03:16 103 22 97 Facial 30 04/25/18 01:29 97 20 98 Nasal Cannula 2.0 28 04/25/18 01:19 95 22 95 Nasal Cannula 2.0 28 04/25/18 00:00 98.7 94 20 132/77 (95) 99 04/24/18 23:15 94 21 99 Facial 30 04/24/18 21:00 Nasal Cannula 2.0 Intake and Output 04/24/18 04/25/18 19:00 07:00 Intake Total 960 ml 855 ml Balance 960 ml 855 ml Intake Oral 960 ml 800 ml IV Total 55 ml # Voids 3 2 # Bowel Movements 1 Laboratory Tests 04/25/18 13:40: White Blood Count 5.8, Red Blood Count 2.83L, Hemoglobin 8.0L, Hematocrit 26.6L , Mean Corpuscular Volume 94, Mean Corpuscular Hemoglobin 28.2, Mean Corpuscular Hemoglobin Concent 30.0L, Red Cell Distribution Width 19.4H, Platelet Count 58L, Mean Platelet Volume 7.8, Neutrophils (%) (Auto) , Lymphocytes (%) (Auto) , Monocytes (%) (Auto) , Eosinophils (%) (Auto) , Basophils (%) (Auto) , Differential Total Cells Counted 100, Neutrophils % ( Manual) 81H, Lymphocytes % (Manual) 6L, Monocytes % (Manual) 9, Eosinophils % ( Manual) 4H, Basophils % (Manual) 0, Band Neutrophils 0, Platelet Estimate DecreasedL, Platelet Morphology Normal, Hypochromasia 2+, Anisocytosis 2+, Sodium Level 136, Potassium Level 4.7, Chloride Level 98, Carbon Dioxide Level 26, Anion Gap 12, Blood Urea Nitrogen 57H, Creatinine 7.1H, Estimat Glomerular Filtration Rate 9.5, Glucose Level 124H, Calcium Level 9.2 04/25/18 14:40: Hemoglobin A [Pending], Hemoglobin A2 [Pending], Hemoglobin C [Pending], Hemoglobin F () [Pending], Hemoglobin S [Pending], Variant Hemoglobin [ Pending], Hemoglobin Electrophoresis Interp [Pending], Hemoglobin Interpretation [Pending], Hemoglobin Solubility [Pending], Haptoglobin [Pending] , Prothrombin Time 11.3, Prothromb Time International Ratio 1.1, Activated Partial Thromboplast Time 42H, Iron Level 30L, Total Iron Binding Capacity 202L , Percent Iron Saturation 15, Unsaturated Iron Binding 172, Ferritin 1172H, Total Bilirubin 0.6, Direct Bilirubin 0.2, Lactate Dehydrogenase 209, Vitamin B12 Level 919, Thyroid Stimulating Hormone (TSH) 1.214, Hepatitis A IgM Antibody [Pending], Hepatitis B Surface Antigen [Pending], Hepatitis B Core IgM Antibody [Pending], Hepatitis C Antibody [Pending], HIV (1&2) Antibody Rapid Negative 04/25/18 17:49: White Blood Count 5.5, Red Blood Count 2.82L, Hemoglobin 8.2L, Hematocrit 26.7L , Mean Corpuscular Volume 95, Mean Corpuscular Hemoglobin 29.2, Mean Corpuscular Hemoglobin Concent 30.8L, Red Cell Distribution Width 18.8H, Platelet Count 60L, Mean Platelet Volume 9.2, Neutrophils (%) (Auto) 84.2H, Lymphocytes (%) (Auto) 6.2L, Monocytes (%) (Auto) 7.0, Eosinophils (%) (Auto) 1.9, Basophils (%) (Auto) 0.7, Sodium Level 137, Potassium Level 4.6, Chloride Level 97L, Carbon Dioxide Level 27, Anion Gap 13, Blood Urea Nitrogen 47H, Creatinine 6.5H, Estimat Glomerular Filtration Rate 10.4, Glucose Level 134H, Calcium Level 9.3 Height (Feet): 5 Height (Inches): 7.00 Weight (Pounds): 232 General Appearance: WD/WN, no apparent distress Cardiovascular: normal rate Respiratory/Chest: lungs clear Abdomen: soft Objective left lower extremity dressing intact clean no bleeding Moe Sewell MD Apr 25, 2018 20:18
[2018-04-25] MEDS: Meropenem 500mg/NS 55ml IVPB SCH ×2 (21:00)
[2018-04-25] MEDS: Tamsulosin 0.4mg cap ORAL SCH (21:00)
[2018-04-25] MEDS ORDERED: Vancomycin 1gm/D5W 275ml IVPB SCH ×2 (21:00)
--- NOTE | 2018-04-25 21:19 | Pulmonology Progress Note ---
Assessment/Plan Assessment/Plan Problem List: 1. Diabetic foot infection 2. Acute CHF exacerbation/pulmonary edema 3. COPD w/o obvious exacerbation 4. CHU 5. ESRD on HD 6. Hx multiple amputations 7. Thrombocytopenia 8. Anemia 9. L leg DVT Plan: Abx per ID f/u cultures Podiatric wound care/debridement as needed Monitor volumes, cont volume removed with HD Duonebs q6 Cont CPAP 10 cm H2O Heparin gtt for DVT, cautiously observe platelets Heme f/u May need IVC filter, awaiting vascular eval for legs as well. Case d/w Dr. Sewell and Leroy Subjective ROS Limited/Unobtainable: No Interval Events: Noted with left superficial femoral DVT down to popliteal vein. Constitutional: Denies: no symptoms, fever, chills, fatigue, anorexia, drenching sweats, other HEENT: Denies: no symptoms, visual change, discharge, earache, hearing change, coryza, congestion, post-nasal drip, dysphagia, other Respiratory: Reports: no symptoms, dry cough, productive cough, sputum, hemoptysis, shortness of breath, dyspnea at rest, dyspnea on exertion, wheezing , pleuritic pain, other Cardiovascular: Denies: no symptoms, chest pain, palpitations, other Gastrointestinal/Abdominal: Denies: no symptoms, nausea, vomiting, diarrhea, constipation, blood in stool, bloating, other Allergies: Coded Allergies: NO KNOWN DRUG ALLERGIES (Verified Allergy, Unknown, 03/06/18) Subjective Heparin gtt started for DVT. Noted low platelets. V/Q scan low probability for PE. Consideration for IVC filter noted. Was still feeling short of breath but had just begun dialysis. Objective Last 24 Hour Vital Signs Date Time Temp Pulse Resp B/P (MAP) Pulse Ox O2 Delivery O2 Flow Rate FiO2 04/25/18 20:05 97 20 99 Nasal Cannula 2.0 28 04/25/18 20:00 98.7 108 22 144/82 (102) 98 04/25/18 19:59 Nasal Cannula 2.0 28 04/25/18 19:58 98 Nasal Cannula 2.0 28 04/25/18 19:57 97 20 99 Nasal Cannula 2.0 28 04/25/18 19:01 152/95 04/25/18 17:26 97.0 04/25/18 13:25 100 20 100 Nasal Cannula 2.0 28 04/25/18 13:17 99 22 100 Nasal Cannula 2.0 28 04/25/18 13:13 Nasal Cannula 2.0 04/25/18 09:24 104 152/95 04/25/18 09:23 152/95 04/25/18 09:00 Nasal Cannula 2.0 04/25/18 08:00 97.0 104 20 152/95 (114) 95 04/25/18 07:01 98 20 100 Nasal Cannula 2.0 28 04/25/18 06:53 Nasal Cannula 2.0 28 04/25/18 06:53 98 Nasal Cannula 2.0 28 04/25/18 06:51 101 20 98 Nasal Cannula 2.0 28 04/25/18 04:00 98.6 96 20 138/78 (98) 98 04/25/18 03:16 103 22 97 Facial 30 04/25/18 01:29 97 20 98 Nasal Cannula 2.0 28 04/25/18 01:19 95 22 95 Nasal Cannula 2.0 28 04/25/18 00:00 98.7 94 20 132/77 (95) 99 04/24/18 23:15 94 21 99 Facial 30 Intake and Output 04/24/18 04/25/18 19:00 07:00 Intake Total 960 ml 855 ml Balance 960 ml 855 ml Intake Oral 960 ml 800 ml IV Total 55 ml # Voids 3 2 # Bowel Movements 1 General Appearance: no acute distress HEENT: normocephalic, atraumatic, anicteric Respiratory/Chest: other - Coarse breath sounds Cardiovascular: normal rate, regular rhythm Abdomen: other - Obese, soft, nontender Extremities: other - bilateral edema. L leg wrapped in gauze Microbiology Date/Time Source Procedure Growth Status 04/23/18 16:40 Blood Blood Culture - Preliminary Staphylococcus Sp Coag Neg Resulted 04/23/18 16:25 Blood Blood Culture - Preliminary NO GROWTH AFTER 24 HOURS Resulted 04/24/18 13:16 Wound Gram Stain - Final Resulted 04/24/18 13:16 Wound Wound Culture - Preliminary Resulted Laboratory Tests 04/25/18 13:40: White Blood Count 5.8, Red Blood Count 2.83L, Hemoglobin 8.0L, Hematocrit 26.6L , Mean Corpuscular Volume 94, Mean Corpuscular Hemoglobin 28.2, Mean Corpuscular Hemoglobin Concent 30.0L, Red Cell Distribution Width 19.4H, Platelet Count 58L, Mean Platelet Volume 7.8, Neutrophils (%) (Auto) , Lymphocytes (%) (Auto) , Monocytes (%) (Auto) , Eosinophils (%) (Auto) , Basophils (%) (Auto) , Differential Total Cells Counted 100, Neutrophils % ( Manual) 81H, Lymphocytes % (Manual) 6L, Monocytes % (Manual) 9, Eosinophils % ( Manual) 4H, Basophils % (Manual) 0, Band Neutrophils 0, Platelet Estimate DecreasedL, Platelet Morphology Normal, Hypochromasia 2+, Anisocytosis 2+, Sodium Level 136, Potassium Level 4.7, Chloride Level 98, Carbon Dioxide Level 26, Anion Gap 12, Blood Urea Nitrogen 57H, Creatinine 7.1H, Estimat Glomerular Filtration Rate 9.5, Glucose Level 124H, Calcium Level 9.2 04/25/18 14:40: Hemoglobin A [Pending], Hemoglobin A2 [Pending], Hemoglobin C [Pending], Hemoglobin F () [Pending], Hemoglobin S [Pending], Variant Hemoglobin [ Pending], Hemoglobin Electrophoresis Interp [Pending], Hemoglobin Interpretation [Pending], Hemoglobin Solubility [Pending], Haptoglobin [Pending] , Prothrombin Time 11.3, Prothromb Time International Ratio 1.1, Activated Partial Thromboplast Time 42H, Iron Level 30L, Total Iron Binding Capacity 202L , Percent Iron Saturation 15, Unsaturated Iron Binding 172, Ferritin 1172H, Total Bilirubin 0.6, Direct Bilirubin 0.2, Lactate Dehydrogenase 209, Vitamin B12 Level 919, Thyroid Stimulating Hormone (TSH) 1.214, Hepatitis A IgM Antibody [Pending], Hepatitis B Surface Antigen [Pending], Hepatitis B Core IgM Antibody [Pending], Hepatitis C Antibody [Pending], HIV (1&2) Antibody Rapid Negative 04/25/18 17:49: White Blood Count 5.5, Red Blood Count 2.82L, Hemoglobin 8.2L, Hematocrit 26.7L , Mean Corpuscular Volume 95, Mean Corpuscular Hemoglobin 29.2, Mean Corpuscular Hemoglobin Concent 30.8L, Red Cell Distribution Width 18.8H, Platelet Count 60L, Mean Platelet Volume 9.2, Neutrophils (%) (Auto) 84.2H, Lymphocytes (%) (Auto) 6.2L, Monocytes (%) (Auto) 7.0, Eosinophils (%) (Auto) 1.9, Basophils (%) (Auto) 0.7, Sodium Level 137, Potassium Level 4.6, Chloride Level 97L, Carbon Dioxide Level 27, Anion Gap 13, Blood Urea Nitrogen 47H, Creatinine 6.5H, Estimat Glomerular Filtration Rate 10.4, Glucose Level 134H, Calcium Level 9.3 Current Medications Medications (Trade) Dose Ordered Sig/Oliverio Route PRN Reason Start Time Stop Time Status Last Admin Dose Admin Acetaminophen (Tylenol) 650 mg Q6H PRN ORAL Mild Pain/Temp > 100.5 04/23/18 22:30 05/23/18 22:29 Acetaminophen/ Hydrocodone Bitart ([place] 10) 1 tab Q6H PRN ORAL For Pain 04/23/18 22:30 04/30/18 22:29 04/25/18 16:56 Al Hydroxide/Mg Hydroxide (Mylanta) 30 ml BID PRN ORAL Constipation 04/23/18 22:30 05/23/18 22:29 Albuterol/ Ipratropium (Albuterol/ Ipratropium) 3 ml Q6HRT HHN 04/24/18 15:15 04/29/18 15:14 04/25/18 19:56 Allopurinol (Zyloprim) 100 mg DAILY ORAL 04/24/18 09:00 05/24/18 08:59 04/25/18 09:23 Amlodipine Besylate (Norvasc) 5 mg DAILY ORAL 04/24/18 09:00 05/24/18 08:59 04/25/18 09:24 Clonidine HCl (Catapres tab) 0.2 mg BID ORAL 04/23/18 22:30 05/23/18 22:29 04/25/18 19:01 Dextrose (Dextrose 50%) 25 ml Q30M PRN IV Hypoglycemia 04/23/18 23:00 05/23/18 22:59 Dextrose (Dextrose 50%) 50 ml Q30M PRN IV Hypoglycemia 04/23/18 23:00 05/23/18 22:59 Docusate Sodium (Colace) 100 mg TWICE A DAY ORAL 04/24/18 09:00 05/24/18 08:59 04/25/18 19:01 Finasteride (Proscar) 5 mg DAILY ORAL 04/24/18 09:00 05/24/18 08:59 04/25/18 09:24 Gabapentin (Neurontin) 300 mg DAILY ORAL 04/24/18 09:00 05/24/18 08:59 04/25/18 09:23 Heparin Sodium (Porcine) (Heparin Sod 1000 units/ml 10ml) 500 unit ONCE PRN IV FOR HD USE ONLY 04/24/18 19:00 04/26/18 23:59 Heparin Sodium/ Dextrose 500 ml @ 37.888 mls/ hr ADJUST PER PROTOCOL IV 04/25/18 18:00 05/25/18 17:59 Insulin Aspart (NovoLOG) BEFORE MEALS AND HS SUBQ 04/24/18 06:30 05/24/18 06:29 04/25/18 21:02 Lidocaine HCl (Xylocaine 1% 30ml) 30 ml NOW PRN INJ Radiology Procedure 04/25/18 14:30 04/26/18 23:59 Meropenem 500 mg/ Sodium Chloride 55 ml @ 110 mls/hr Q24H IVPB 04/23/18 21:00 04/28/18 20:59 04/25/18 21:00 Pantoprazole (Protonix) 40 mg DAILY IVP 04/24/18 09:00 05/24/18 08:59 04/25/18 09:24 Sodium Chloride 1,000 ml @ 500 mls/hr Q2H PRN IVLG sbp<90 during hd 04/24/18 18:32 04/26/18 23:59 Tamsulosin HCl (Flomax) 0.4 mg BEDTIME ORAL 04/23/18 23:45 05/23/18 23:44 04/25/18 21:00 Vancomycin HCl (Vanco rx to dose) 1 ea DAILY PRN MISC Per rx protocol 04/23/18 18:15 05/23/18 18:14 Vancomycin HCl 1 gm/Dextrose 275 ml @ 183.708 mls/hr ONCE IVPB 04/25/18 21:00 04/25/18 23:00 Vitamin B Complex/ Vit C/Folic Acid (Nephrovite) 1 tab DAILY ORAL 04/26/18 09:00 05/26/18 08:59 Tyrel Platt MD Apr 25, 2018 21:19
--- NOTE | 2018-04-25 23:11 | NUR ---
RESPIRATORY NOTE: Placed pt on cpap per dr's order. CPAP of 10. Foam tape around pt's nose to prevent redness. There's no red outlet in the room which CLEVE Sigala and Charge nurse Tyrel aware and will let me know if there's a room with red outlet will be available. Alarms are on and audible. Will continue to monitor pt throughout the night.
[2018-04-26] VITALS: BP 159/88
[2018-04-26] MEDS ORDERED: Heparin 5000 units/ml inj IV SCH (00:45)
[2018-04-26] MEDS: Heparin 25,000u/D5W 500ml 500 ML IV SCH ×2 (00:46→16:35)
[2018-04-26] MEDS: Albuterol/Ipratropium 3ml neb HHN SCH ×5 (01:20→23:12)
[2018-04-26 04:00] VITALS: BP 158/93
[2018-04-26] MEDS: NovoLOG Insulin Flexpen SUBQ SCH ×4 (06:16→20:40)
--- NOTE | 2018-04-26 07:30 | NUR ---
HAND-OFF: Report given to Casie POON.
--- NOTE | 2018-04-26 07:43 | NUR ---
NURSE NOTES: Patient is eating his breakfast, on nasal cannula, no sign of distress and shortness of breath. information technology account manager in room to draw blood. Patient complains of his right hurts and swollen, I switched the IV drip to the right upper arm IV. Dressing dry and intact on left heel and foot. OB stool pending, patient is aware. Bed at lowest position, breaks engaged. Will check blood sugar as scheduled. Call light within reach.
[2018-04-26 08:00] VITALS: BP 166/98
[2018-04-26] MEDS: Pantoprazole Inj IVP SCH (09:05)
[2018-04-26] MEDS: Docusate 100mg cap ORAL SCH ×2 (09:06→17:13)
[2018-04-26] MEDS: Allopurinol 100mg Tab ORAL SCH (09:06)
[2018-04-26] MEDS: Nephrovite tab (Rena-Vite) ORAL SCH (09:06)
[2018-04-26] MEDS: cloNIDine 0.2mg Tab ORAL SCH ×2 (09:09→17:13)
--- NOTE | 2018-04-26 10:03 | Pulmonology Progress Note ---
Assessment/Plan Assessment/Plan Problem List: 1. Diabetic foot infection 2. Acute CHF exacerbation/pulmonary edema 3. COPD w/o obvious exacerbation 4. CHU 5. ESRD on HD 6. Hx multiple amputations 7. Thrombocytopenia 8. Anemia 9. L leg DVT Plan: Abx per ID f/u cultures Podiatric wound care/debridement as needed Monitor volumes, cont volume removed with HD Duonebs q6 Cont CPAP 10 cm H2O Heparin gtt for DVT, cautiously observe platelets Heme f/u May need IVC filter, awaiting vascular eval for legs as well. Subjective ROS Limited/Unobtainable: No Interval Events: Breathing improved after HD. Heparin gtt tolerating. Plt ok Constitutional: Reports: no symptoms HEENT: Repors: no symptoms Respiratory: Reports: no symptoms Cardiovascular: Reports: no symptoms Gastrointestinal/Abdominal: Reports: no symptoms Allergies: Coded Allergies: NO KNOWN DRUG ALLERGIES (Verified Allergy, Unknown, 03/06/18) Objective Last 24 Hour Vital Signs Date Time Temp Pulse Resp B/P (MAP) Pulse Ox O2 Delivery O2 Flow Rate FiO2 04/26/18 09:09 166/98 04/26/18 09:09 108 166/98 04/26/18 08:15 Nasal Cannula 2.0 28 04/26/18 08:15 101 22 99 Nasal Cannula 2.0 28 04/26/18 08:15 97 Nasal Cannula 2.0 28 04/26/18 08:05 93 20 97 Nasal Cannula 2.0 28 04/26/18 08:00 98.5 108 20 166/98 (120) 94 04/26/18 04:00 98.5 108 19 158/93 (114) 94 04/26/18 01:25 99 20 98 Nasal Cannula 2.0 28 04/26/18 01:18 99 20 97 Nasal Cannula 2.0 28 04/26/18 00:00 98.9 101 18 159/88 (111) 98 04/25/18 23:10 104 18 96 Facial 30 04/25/18 21:00 Nasal Cannula 2.0 04/25/18 20:05 97 20 99 Nasal Cannula 2.0 28 04/25/18 20:00 98.7 108 22 144/82 (102) 98 04/25/18 19:59 Nasal Cannula 2.0 28 04/25/18 19:58 98 Nasal Cannula 2.0 28 04/25/18 19:57 97 20 99 Nasal Cannula 2.0 28 04/25/18 19:01 152/95 04/25/18 17:26 97.0 04/25/18 13:25 100 20 100 Nasal Cannula 2.0 28 04/25/18 13:17 99 22 100 Nasal Cannula 2.0 28 04/25/18 13:13 Nasal Cannula 2.0 Intake and Output 04/25/18 04/26/18 19:00 07:00 Intake Total 282.328 ml Output Total 3000 ml Balance -3000 ml 282.328 ml IV Total 282.328 ml Output Hemodialysis UF 3000 ml # Voids 1 General Appearance: WD/WN, no acute distress HEENT: normocephalic, atraumatic, anicteric, mucous membranes moist, PERRL Respiratory/Chest: crackles/rales Cardiovascular: normal rate, regular rhythm Abdomen: normal bowel sounds, soft, non tender Extremities: other - Improved LE edema. L foot bandaged Microbiology Date/Time Source Procedure Growth Status 04/23/18 16:40 Blood Blood Culture - Final Staphylococcus Sp Coag Neg Complete 04/23/18 16:25 Blood Blood Culture - Preliminary NO GROWTH AFTER 48 HOURS Resulted 04/24/18 13:16 Wound Gram Stain - Final Resulted 04/24/18 13:16 Wound Wound Culture - Preliminary Resulted Laboratory Tests 04/25/18 13:40: White Blood Count 5.8, Red Blood Count 2.83L, Hemoglobin 8.0L, Hematocrit 26.6L , Mean Corpuscular Volume 94, Mean Corpuscular Hemoglobin 28.2, Mean Corpuscular Hemoglobin Concent 30.0L, Red Cell Distribution Width 19.4H, Platelet Count 58L, Mean Platelet Volume 7.8, Neutrophils (%) (Auto) , Lymphocytes (%) (Auto) , Monocytes (%) (Auto) , Eosinophils (%) (Auto) , Basophils (%) (Auto) , Differential Total Cells Counted 100, Neutrophils % ( Manual) 81H, Lymphocytes % (Manual) 6L, Monocytes % (Manual) 9, Eosinophils % ( Manual) 4H, Basophils % (Manual) 0, Band Neutrophils 0, Platelet Estimate DecreasedL, Platelet Morphology Normal, Hypochromasia 2+, Anisocytosis 2+, Sodium Level 136, Potassium Level 4.7, Chloride Level 98, Carbon Dioxide Level 26, Anion Gap 12, Blood Urea Nitrogen 57H, Creatinine 7.1H, Estimat Glomerular Filtration Rate 9.5, Glucose Level 124H, Calcium Level 9.2 04/25/18 14:40: Hemoglobin A [Pending], Hemoglobin A2 [Pending], Hemoglobin C [Pending], Hemoglobin F () [Pending], Hemoglobin S [Pending], Variant Hemoglobin [ Pending], Hemoglobin Electrophoresis Interp [Pending], Hemoglobin Interpretation [Pending], Hemoglobin Solubility [Pending], Haptoglobin [Pending] , Prothrombin Time 11.3, Prothromb Time International Ratio 1.1, Activated Partial Thromboplast Time 42H, Iron Level 30L, Total Iron Binding Capacity 202L , Percent Iron Saturation 15, Unsaturated Iron Binding 172, Ferritin 1172H, Total Bilirubin 0.6, Direct Bilirubin 0.2, Lactate Dehydrogenase 209, Vitamin B12 Level 919, Thyroid Stimulating Hormone (TSH) 1.214, Hepatitis A IgM Antibody [Pending], Hepatitis B Surface Antigen [Pending], Hepatitis B Core IgM Antibody [Pending], Hepatitis C Antibody [Pending], HIV (1&2) Antibody Rapid Negative 04/25/18 17:49: White Blood Count 5.5, Red Blood Count 2.82L, Hemoglobin 8.2L, Hematocrit 26.7L , Mean Corpuscular Volume 95, Mean Corpuscular Hemoglobin 29.2, Mean Corpuscular Hemoglobin Concent 30.8L, Red Cell Distribution Width 18.8H, Platelet Count 60L, Mean Platelet Volume 9.2, Neutrophils (%) (Auto) 84.2H, Lymphocytes (%) (Auto) 6.2L, Monocytes (%) (Auto) 7.0, Eosinophils (%) (Auto) 1.9, Basophils (%) (Auto) 0.7, Sodium Level 137, Potassium Level 4.6, Chloride Level 97L, Carbon Dioxide Level 27, Anion Gap 13, Blood Urea Nitrogen 47H, Creatinine 6.5H, Estimat Glomerular Filtration Rate 10.4, Glucose Level 134H, Calcium Level 9.3 04/26/18 07:40: Activated Partial Thromboplast Time 43H Current Medications Medications (Trade) Dose Ordered Sig/Oliverio Route PRN Reason Start Time Stop Time Status Last Admin Dose Admin Acetaminophen (Tylenol) 650 mg Q6H PRN ORAL Mild Pain/Temp > 100.5 04/23/18 22:30 05/23/18 22:29 Acetaminophen/ Hydrocodone Bitart ([place] 10/325) 1 tab Q6H PRN ORAL For Pain 04/23/18 22:30 04/30/18 22:29 04/25/18 16:56 Al Hydroxide/Mg Hydroxide (Mylanta) 30 ml BID PRN ORAL Constipation 04/23/18 22:30 05/23/18 22:29 Albuterol/ Ipratropium (Albuterol/ Ipratropium) 3 ml Q6HRT HHN 04/24/18 15:15 04/29/18 15:14 04/26/18 08:15 Allopurinol (Zyloprim) 100 mg DAILY ORAL 04/24/18 09:00 05/24/18 08:59 04/26/18 09:06 Amlodipine Besylate (Norvasc) 5 mg DAILY ORAL 04/24/18 09:00 05/24/18 08:59 04/26/18 09:09 Clonidine HCl (Catapres tab) 0.2 mg BID ORAL 04/23/18 22:30 05/23/18 22:29 04/26/18 09:09 Dextrose (Dextrose 50%) 25 ml Q30M PRN IV Hypoglycemia 04/23/18 23:00 05/23/18 22:59 Dextrose (Dextrose 50%) 50 ml Q30M PRN IV Hypoglycemia 04/23/18 23:00 05/23/18 22:59 Docusate Sodium (Colace) 100 mg TWICE A DAY ORAL 04/24/18 09:00 05/24/18 08:59 04/26/18 09:06 Finasteride (Proscar) 5 mg DAILY ORAL 04/24/18 09:00 05/24/18 08:59 04/26/18 09:06 Gabapentin (Neurontin) 300 mg DAILY ORAL 04/24/18 09:00 05/24/18 08:59 04/26/18 09:05 Heparin Sodium (Porcine) (Heparin Sod 1000 units/ml 10ml) 500 unit ONCE PRN IV FOR HD USE ONLY 04/24/18 19:00 04/26/18 23:59 Heparin Sodium/ Dextrose 500 ml @ 37.888 mls/ hr ADJUST PER PROTOCOL IV 04/26/18 00:30 05/26/18 00:29 04/26/18 00:46 Insulin Aspart (NovoLOG) BEFORE MEALS AND HS SUBQ 04/24/18 06:30 05/24/18 06:29 04/26/18 06:16 Lidocaine HCl (Xylocaine 1% 30ml) 30 ml NOW PRN INJ Radiology Procedure 04/25/18 14:30 04/26/18 23:59 Meropenem 500 mg/ Sodium Chloride 55 ml @ 110 mls/hr Q24H IVPB 04/23/18 21:00 04/28/18 20:59 04/25/18 21:00 Pantoprazole (Protonix) 40 mg DAILY IVP 04/24/18 09:00 05/24/18 08:59 04/26/18 09:05 Sodium Chloride 1,000 ml @ 500 mls/hr Q2H PRN IVLG sbp<90 during hd 04/24/18 18:32 04/26/18 23:59 Tamsulosin HCl (Flomax) 0.4 mg BEDTIME ORAL 04/23/18 23:45 05/23/18 23:44 04/25/18 21:00 Vancomycin HCl (Vanco rx to dose) 1 ea DAILY PRN MISC Per rx protocol 04/23/18 18:15 05/23/18 18:14 Vitamin B Complex/ Vit C/Folic Acid (Nephrovite) 1 tab DAILY ORAL 04/26/18 09:00 05/26/18 08:59 04/26/18 09:06 Tyrel Platt MD Apr 26, 2018 10:03
--- NOTE | 2018-04-26 10:11 | NUR ---
NURSE NOTES: Heparin running at 18, will keep monitoring APTT result.
[2018-04-26 12:00] VITALS: BP 139/98
[2018-04-26] MEDS ORDERED: Tums 500mg ORAL PRN (14:00)
--- NOTE | 2018-04-26 14:31 | General Progress Note ---
Assessment/Plan Assessment/Plan # DVT of the deep veins superficial and politeal of the left leg --> VQ scan shows low probability of PE --> remains with anemia and low platelets therefore contraindication for anticoagulation --> RECOMMEND Ivc filter if okay with primary physician --> currently on heparin gtt and monitor plt count (potentially chronic now that we know is hep B) --> Cards and pulm recs appreciated # Thrombocytopenia -- plt goal >20k, transfuse as required, hepatitis B chronic infection --> plt trend in the 66k-->63k-->58k-->60k (likely chronic) --> hep B noted and if no change in plt, consider anticoagulation # Anemia of chronic disease --> anemia panel has been reviewed, no iron def noted --> hgb goal >7, transfuse as needed --> peripheral smear to be reviewed # Acute CHF exacerbation/pulmonary edema --> as per pulm # COPD w/o obvious exacerbation # CHU # ESRD on HD # Hx multiple amputations # Diabetic foot infection --> as per ID # Hepatitis B ++ Ag # Acute CHF exacerbation/pulmonary edema # COPD w/o obvious exacerbation Time of note does not necessarily reflect time of encounter Greatly appreciate consultation! Subjective ROS Limited/Unobtainable: Yes Allergies: Coded Allergies: NO KNOWN DRUG ALLERGIES (Verified Allergy, Unknown, 03/06/18) Subjective 04/26: no events, potential plan for ivc f on sunday Objective Last 24 Hour Vital Signs Date Time Temp Pulse Resp B/P (MAP) Pulse Ox O2 Delivery O2 Flow Rate FiO2 04/26/18 13:40 92 20 99 Nasal Cannula 2.0 28 04/26/18 13:35 92 22 95 Nasal Cannula 2.0 28 04/26/18 12:00 97.7 100 20 139/98 (112) 93 04/26/18 09:09 166/98 04/26/18 09:09 108 166/98 04/26/18 09:00 Nasal Cannula 2.0 04/26/18 08:15 Nasal Cannula 2.0 28 04/26/18 08:15 101 22 99 Nasal Cannula 2.0 28 04/26/18 08:15 97 Nasal Cannula 2.0 28 04/26/18 08:05 93 20 97 Nasal Cannula 2.0 28 04/26/18 08:00 98.5 108 20 166/98 (120) 94 04/26/18 04:00 98.5 108 19 158/93 (114) 94 04/26/18 01:25 99 20 98 Nasal Cannula 2.0 28 04/26/18 01:18 99 20 97 Nasal Cannula 2.0 28 04/26/18 00:00 98.9 101 18 159/88 (111) 98 04/25/18 23:10 104 18 96 Facial 30 04/25/18 21:00 Nasal Cannula 2.0 04/25/18 20:05 97 20 99 Nasal Cannula 2.0 28 04/25/18 20:00 98.7 108 22 144/82 (102) 98 04/25/18 19:59 Nasal Cannula 2.0 28 04/25/18 19:58 98 Nasal Cannula 2.0 28 04/25/18 19:57 97 20 99 Nasal Cannula 2.0 28 04/25/18 19:01 152/95 04/25/18 17:26 97.0 Intake and Output 04/25/18 04/26/18 19:00 07:00 Intake Total 282.328 ml Output Total 3000 ml Balance -3000 ml 282.328 ml IV Total 282.328 ml Output Hemodialysis UF 3000 ml # Voids 1 Laboratory Tests 04/25/18 14:40: Hemoglobin A [Pending], Hemoglobin A2 [Pending], Hemoglobin C [Pending], Hemoglobin F () [Pending], Hemoglobin S [Pending], Variant Hemoglobin [ Pending], Hemoglobin Electrophoresis Interp [Pending], Hemoglobin Interpretation [Pending], Hemoglobin Solubility [Pending], Haptoglobin [Pending] , Prothrombin Time 11.3, Prothromb Time International Ratio 1.1, Activated Partial Thromboplast Time 42H, Iron Level 30L, Total Iron Binding Capacity 202L , Percent Iron Saturation 15, Unsaturated Iron Binding 172, Ferritin 1172H, Total Bilirubin 0.6, Direct Bilirubin 0.2, Lactate Dehydrogenase 209, Vitamin B12 Level 919, Thyroid Stimulating Hormone (TSH) 1.214, Hepatitis A IgM Antibody Negative, Hepatitis B Surface Antigen Confirm. indicated, Hepatitis B Surface Ag Confirmation PositiveH, Hepatitis B Core IgM Antibody Negative, Hepatitis C Antibody <0.1, HIV (1&2) Antibody Rapid Negative 04/25/18 17:49: White Blood Count 5.5, Red Blood Count 2.82L, Hemoglobin 8.2L, Hematocrit 26.7L , Mean Corpuscular Volume 95, Mean Corpuscular Hemoglobin 29.2, Mean Corpuscular Hemoglobin Concent 30.8L, Red Cell Distribution Width 18.8H, Platelet Count 60L, Mean Platelet Volume 9.2, Neutrophils (%) (Auto) 84.2H, Lymphocytes (%) (Auto) 6.2L, Monocytes (%) (Auto) 7.0, Eosinophils (%) (Auto) 1.9, Basophils (%) (Auto) 0.7, Sodium Level 137, Potassium Level 4.6, Chloride Level 97L, Carbon Dioxide Level 27, Anion Gap 13, Blood Urea Nitrogen 47H, Creatinine 6.5H, Estimat Glomerular Filtration Rate 10.4, Glucose Level 134H, Calcium Level 9.3 04/26/18 07:40: Activated Partial Thromboplast Time 43H 04/26/18 10:25: Activated Partial Thromboplast Time 65H Height (Feet): 5 Height (Inches): 7.00 Weight (Pounds): 232 General Appearance: lethargic EENT: TMs normal Neck: normal alignment Cardiovascular: regular rhythm Respiratory/Chest: normal breath sounds Abdomen: no mass Edema: mild edema Neurologic: alert Skin: warm/dry Juve Soto MD Apr 26, 2018 14:31
--- NOTE | 2018-04-26 15:02 | Cardiac Electrophysiology PN ---
Assessment/Plan Status Narrative Normal left ventricular chamber size, systolic function and wall motion. Left ventricular ejection fraction estimated to be 60-65 %. Moderate left ventricular hypertrophy by 2-D. Small posterior pericardial effusion. Moderate left atrial enlargement. Mild right atrial enlargement. Right ventricular chamber size is within normal limits. Moderate aortic valve calcification with decreased cusp excursion c/w aortic stenosis. Moderately thickened mitral valve leaflets with normal excursion. Mitral annulus and aortic root calcification. Pulmonic valve not well visualized. Normal tricuspid valve structure. IVC dilated at 2.4 cm with slight physiologic collapse suggestive of in Assessment/Plan 1. Congestive heart failure. BNP of more than 35,000 on hemodialysis. EF 65% 2. Troponin elevation. Troponin of 0.057. It could be due to renal failure. The patient does not have any chest pain. Echocardiogram EF 65%. 3. Hypertension. On hemodialysis, Norvasc 5 mg daily and clonidine 0.2 mg b.i.d. 4. Lower extremity cellulitis, on meropenem and vancomycin. 5. Morbid obesity. 6. Peripheral vascular disease. Subjective Subjective Comfortable in NAD Objective Last 24 Hour Vital Signs Date Time Temp Pulse Resp B/P (MAP) Pulse Ox O2 Delivery O2 Flow Rate FiO2 04/26/18 13:40 92 20 99 Nasal Cannula 2.0 28 04/26/18 13:35 92 22 95 Nasal Cannula 2.0 28 04/26/18 12:00 97.7 100 20 139/98 (112) 93 04/26/18 09:09 166/98 04/26/18 09:09 108 166/98 04/26/18 09:00 Nasal Cannula 2.0 04/26/18 08:15 Nasal Cannula 2.0 28 04/26/18 08:15 101 22 99 Nasal Cannula 2.0 28 04/26/18 08:15 97 Nasal Cannula 2.0 28 04/26/18 08:05 93 20 97 Nasal Cannula 2.0 28 04/26/18 08:00 98.5 108 20 166/98 (120) 94 04/26/18 04:00 98.5 108 19 158/93 (114) 94 04/26/18 01:25 99 20 98 Nasal Cannula 2.0 28 04/26/18 01:18 99 20 97 Nasal Cannula 2.0 28 04/26/18 00:00 98.9 101 18 159/88 (111) 98 04/25/18 23:10 104 18 96 Facial 30 04/25/18 21:00 Nasal Cannula 2.0 04/25/18 20:05 97 20 99 Nasal Cannula 2.0 28 04/25/18 20:00 98.7 108 22 144/82 (102) 98 04/25/18 19:59 Nasal Cannula 2.0 28 04/25/18 19:58 98 Nasal Cannula 2.0 28 04/25/18 19:57 97 20 99 Nasal Cannula 2.0 28 04/25/18 19:01 152/95 04/25/18 17:26 97.0 Intake and Output 04/25/18 04/26/18 18:59 06:59 Intake Total 282.328 ml Output Total 3000 ml Balance -3000 ml 282.328 ml IV Total 282.328 ml Output Hemodialysis UF 3000 ml # Voids 1 Laboratory Tests Test 04/25/18 17:49 04/26/18 07:40 04/26/18 10:25 White Blood Count 5.5 K/UL (4.8-10.8) Red Blood Count 2.82 M/UL (4.70-6.10) L Hemoglobin 8.2 G/DL (14.2-18.0) L Hematocrit 26.7 % (42.0-52.0) L Mean Corpuscular Volume 95 FL (80-99) Mean Corpuscular Hemoglobin 29.2 PG (27.0-31.0) Mean Corpuscular Hemoglobin Concent 30.8 G/DL (32.0-36.0) L Red Cell Distribution Width 18.8 % (11.6-14.8) H Platelet Count 60 K/UL (150-450) L Mean Platelet Volume 9.2 FL (6.5-10.1) Neutrophils (%) (Auto) 84.2 % (45.0-75.0) H Lymphocytes (%) (Auto) 6.2 % (20.0-45.0) L Monocytes (%) (Auto) 7.0 % (1.0-10.0) Eosinophils (%) (Auto) 1.9 % (0.0-3.0) Basophils (%) (Auto) 0.7 % (0.0-2.0) Sodium Level 137 MMOL/L (136-145) Potassium Level 4.6 MMOL/L (3.5-5.1) Chloride Level 97 MMOL/L (98-107) L Carbon Dioxide Level 27 MMOL/L (21-32) Anion Gap 13 mmol/L (5-15) Blood Urea Nitrogen 47 mg/dL (7-18) H Creatinine 6.5 MG/DL (0.55-1.30) H Estimat Glomerular Filtration Rate 10.4 mL/min (>60) Glucose Level 134 MG/DL (74-106) H Calcium Level 9.3 MG/DL (8.5-10.1) Activated Partial Thromboplast Time 43 SEC (23-33) H 65 SEC (23-33) H Microbiology Date/Time Source Procedure Growth Status 04/23/18 16:40 Blood Blood Culture - Final Staphylococcus Sp Coag Neg Complete 04/23/18 16:25 Blood Blood Culture - Preliminary NO GROWTH AFTER 48 HOURS Resulted 04/24/18 13:16 Wound Gram Stain - Final Resulted 04/24/18 13:16 Wound Culture - Preliminary Staphylococcus Aureus Usual Skin Marlene Resulted 04/23/18 18:17 Nasal Nares MRSA Culture - Final NO METHICILLIN RESISTANT STAPH AUREUS... Complete 04/23/18 18:17 Rectum VRE Culture - Final Enterococcus Faecium - Vre Complete 04/23/18 18:17 Rectum - Final NO CARBAPENEM-RESISTANT ENTEROBACTERI... Complete Objective HEAD AND NECK: No JVD. LUNGS: Decreased breath sounds. CARDIOVASCULAR: Regular S1 and S2 with no gallop. ABDOMEN: Soft. EXTREMITIES: Status post multiple amputations, 2+ lower extremity edema. Shelton Perdomo MD Apr 26, 2018 15:02
--- NOTE | 2018-04-26 15:26 | Nephrology Progress Note ---
Assessment/Plan Problem List: (1) ESRD (end stage renal disease) (2) Diabetic infection of left foot (3) Acute DVT (deep venous thrombosis) Assessment: LLE (4) PVD (peripheral vascular disease) Plan HD tomorrow abxs continue Nephrovite anticoagulation follow labs Subjective Subjective feels ok Objective Objective Last 24 Hour Vital Signs Date Time Temp Pulse Resp B/P (MAP) Pulse Ox O2 Delivery O2 Flow Rate FiO2 04/26/18 13:40 92 20 99 Nasal Cannula 2.0 28 04/26/18 13:35 92 22 95 Nasal Cannula 2.0 28 04/26/18 12:00 97.7 100 20 139/98 (112) 93 04/26/18 09:09 166/98 04/26/18 09:09 108 166/98 04/26/18 09:00 Nasal Cannula 2.0 04/26/18 08:15 Nasal Cannula 2.0 28 04/26/18 08:15 101 22 99 Nasal Cannula 2.0 28 04/26/18 08:15 97 Nasal Cannula 2.0 28 04/26/18 08:05 93 20 97 Nasal Cannula 2.0 28 04/26/18 08:00 98.5 108 20 166/98 (120) 94 04/26/18 04:00 98.5 108 19 158/93 (114) 94 04/26/18 01:25 99 20 98 Nasal Cannula 2.0 28 04/26/18 01:18 99 20 97 Nasal Cannula 2.0 28 04/26/18 00:00 98.9 101 18 159/88 (111) 98 04/25/18 23:10 104 18 96 Facial 30 04/25/18 21:00 Nasal Cannula 2.0 04/25/18 20:05 97 20 99 Nasal Cannula 2.0 28 04/25/18 20:00 98.7 108 22 144/82 (102) 98 04/25/18 19:59 Nasal Cannula 2.0 28 04/25/18 19:58 98 Nasal Cannula 2.0 28 04/25/18 19:57 97 20 99 Nasal Cannula 2.0 28 04/25/18 19:01 152/95 04/25/18 17:26 97.0 Intake and Output 04/25/18 04/26/18 18:59 06:59 Intake Total 282.328 ml Output Total 3000 ml Balance -3000 ml 282.328 ml IV Total 282.328 ml Output Hemodialysis UF 3000 ml # Voids 1 Laboratory Tests 04/25/18 17:49: White Blood Count 5.5, Red Blood Count 2.82L, Hemoglobin 8.2L, Hematocrit 26.7L , Mean Corpuscular Volume 95, Mean Corpuscular Hemoglobin 29.2, Mean Corpuscular Hemoglobin Concent 30.8L, Red Cell Distribution Width 18.8H, Platelet Count 60L, Mean Platelet Volume 9.2, Neutrophils (%) (Auto) 84.2H, Lymphocytes (%) (Auto) 6.2L, Monocytes (%) (Auto) 7.0, Eosinophils (%) (Auto) 1.9, Basophils (%) (Auto) 0.7, Sodium Level 137, Potassium Level 4.6, Chloride Level 97L, Carbon Dioxide Level 27, Anion Gap 13, Blood Urea Nitrogen 47H, Creatinine 6.5H, Estimat Glomerular Filtration Rate 10.4, Glucose Level 134H, Calcium Level 9.3 04/26/18 07:40: Activated Partial Thromboplast Time 43H 04/26/18 10:25: Activated Partial Thromboplast Time 65H Height (Feet): 5 Height (Inches): 7.00 Weight (Pounds): 232 Cardiovascular: normal rate Respiratory/Chest: lungs clear Extremities: severe edema - LLE more than RLE Johan Harper MD Apr 26, 2018 15:26
--- NOTE | 2018-04-26 15:44 | NUR ---
NURSE NOTES: Patient schedules for dialysis for tomorrow, 04/27/18 with [facility], I spike with Ashia.
[2018-04-26 16:00] VITALS: BP 158/73
[2018-04-26] MEDS ORDERED: Heparin Sod 1000 units/ml 10ml IV PRN (16:00)
--- NOTE | 2018-04-26 16:32 | NUR ---
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 97.7 HR 108 RR 22 B/P 166/98 2L NC O2 SAT @ 98% IS: HEPARIN GTT MEROPENEM IV PROTONIX IV ALB HHN MED/SURG STATUS
[2018-04-26] MEDS: HYDROcodone/Acetamin 10/325 tab ORAL PRN (17:16)
--- NOTE | 2018-04-26 18:37 | NUR ---
NURSE NOTES: Dr Medina seen patient.
--- NOTE | 2018-04-26 18:38 | NUR ---
NURSE NOTES: Dr Leavitt order platelet for patient, however Blood bank called, saying that, according to protocol to give platelet, platelet should be <20, and patients platelet is 58. Lab asking if still Dr mahan want patient to get the platelet. I communicated Dr Leavitt, said "can give it Sunday bec it's for IVC filter. The radiologist wants it higher". charge nurse Christine and Lab is aware.
--- NOTE | 2018-04-26 18:42 | General Progress Note ---
Progress Note Progress Note Patient seen and examined Consult dictated # [id number] Prakash Oliveira MD Apr 26, 2018 18:42
--- NOTE | 2018-04-26 19:28 | Infectious Diseases Prog Note ---
Assessment/Plan Problems: (1) Acute osteomyelitis of metatarsal bone of left foot Assessment & Plan: continue meropenem and vancomycin treatment for 6 weeks pending final cultures for osteomyelitis of the left foot metatarsal bone . continue local wound care and dressings change as per title search manager. vascular is consulted for possible revascularization (2) Achilles tendon infection Assessment & Plan: with open wound, already on wide spectrum antibiotics coverage , continue local wound care and dressings change , podiatry is following (3) Diabetic foot infection Assessment & Plan: continue wide spectrum antibiotics , with tight glycemic control. (4) ESRD (end stage renal disease) Assessment & Plan: on HD , renal is following (5) PVD (peripheral vascular disease) Assessment & Plan: recommend vascular eval for possible angioplasty of the left leg (6) Hepatitis B surface antigen positive Assessment & Plan: rule out active HBV infection, will order viral load to confirm Subjective Constitutional: Reports: no symptoms HEENT: Reports: no symptoms Respiratory: Reports: no symptoms Breasts: Reports: no symptoms Cardiovascular: Reports: no symptoms Gastrointestinal/Abdominal: Reports: no symptoms Genitourinary: Reports: no symptoms Neurologic: Reports: no symptoms Psychiatric: Reports: no symptoms Skin: Reports: ulcer Endocrine: Reports: no symptoms Hematologic: Reports: no symptoms Musculoskeletal: Reports: pain Allergies: Coded Allergies: NO KNOWN DRUG ALLERGIES (Verified Allergy, Unknown, 03/06/18) Subjective he was feeling better after started on antibiotics with less pain and swelling in his left foot Objective Vital Signs Last 24 Hour Vital Signs Date Time Temp Pulse Resp B/P (MAP) Pulse Ox O2 Delivery O2 Flow Rate FiO2 04/26/18 17:46 97.2 04/26/18 17:13 158/73 04/26/18 16:00 97.2 99 20 158/73 (101) 98 04/26/18 13:40 92 20 99 Nasal Cannula 2.0 28 04/26/18 13:35 92 22 95 Nasal Cannula 2.0 28 04/26/18 12:00 97.7 100 20 139/98 (112) 93 04/26/18 09:09 166/98 04/26/18 09:09 108 166/98 04/26/18 09:00 Nasal Cannula 2.0 04/26/18 08:15 Nasal Cannula 2.0 28 04/26/18 08:15 101 22 99 Nasal Cannula 2.0 28 04/26/18 08:15 97 Nasal Cannula 2.0 28 04/26/18 08:05 93 20 97 Nasal Cannula 2.0 28 04/26/18 08:00 98.5 108 20 166/98 (120) 94 04/26/18 04:00 98.5 108 19 158/93 (114) 94 04/26/18 01:25 99 20 98 Nasal Cannula 2.0 28 04/26/18 01:18 99 20 97 Nasal Cannula 2.0 28 04/26/18 00:00 98.9 101 18 159/88 (111) 98 04/25/18 23:10 104 18 96 Facial 30 04/25/18 21:00 Nasal Cannula 2.0 04/25/18 20:05 97 20 99 Nasal Cannula 2.0 28 04/25/18 20:00 98.7 108 22 144/82 (102) 98 04/25/18 19:59 Nasal Cannula 2.0 28 04/25/18 19:58 98 Nasal Cannula 2.0 28 04/25/18 19:57 97 20 99 Nasal Cannula 2.0 28 Height (Feet): 5 Height (Inches): 7.00 Weight (Pounds): 232 General Appearance: WD/WN, no acute distress HEENT: normocephalic, atraumatic, anicteric, mucous membranes moist, PERRL, EOMI, pharynx normal, supple, no JVD Respiratory/Chest: chest wall non-tender, lungs clear, normal breath sounds, no respiratory distress, no accessory muscle use Cardiovascular: normal peripheral pulses, normal rate, regular rhythm, no gallop/murmur, no JVD Abdomen: normal bowel sounds, soft, non tender, no organomegaly, non distended , no mass, no scars Genitourinary: normal external genitalia Extremities: no cyanosis, no clubbing, other - left ankle achillis open wound, and left metatarsal open wound at the amputation site with god granulation tissue Skin: no rash, no lesions, ulcers Neurologic/Psychiatric: alert, oriented x 3, responsive Lymphatic: no neck adenopathy, no groin adenopathy Musculoskeletal: normal muscle bulk, no effusion Microbiology Date/Time Source Procedure Growth Status 04/24/18 13:16 Wound Gram Stain - Final Resulted 04/24/18 13:16 Wound Culture - Preliminary Staphylococcus Aureus Usual Skin Marlene Resulted Laboratory Tests Test 04/26/18 07:40 04/26/18 10:25 04/26/18 19:01 Activated Partial Thromboplast Time 43 SEC (23-33) H 65 SEC (23-33) H Stool Occult Blood Pending Current Medications Medications (Trade) Dose Ordered Sig/Oliverio Route PRN Reason Start Time Stop Time Status Last Admin Dose Admin Acetaminophen (Tylenol) 650 mg Q6H PRN ORAL Mild Pain/Temp > 100.5 04/23/18 22:30 05/23/18 22:29 Acetaminophen/ Hydrocodone Bitart (Whiteside 10/325) 1 tab Q6H PRN ORAL For Pain 04/23/18 22:30 04/30/18 22:29 04/26/18 17:16 Albuterol/ Ipratropium (Albuterol/ Ipratropium) 3 ml Q6HRT HHN 04/24/18 15:15 04/29/18 15:14 04/26/18 13:50 Allopurinol (Zyloprim) 100 mg DAILY ORAL 04/24/18 09:00 05/24/18 08:59 04/26/18 09:06 Amlodipine Besylate (Norvasc) 5 mg DAILY ORAL 04/24/18 09:00 05/24/18 08:59 04/26/18 09:09 Calcium Carbonate (Tums) 500 mg TIDPRN PRN ORAL Nausea & Vomiting/Dyspepsia 04/26/18 14:00 05/26/18 13:59 Clonidine HCl (Catapres tab) 0.2 mg BID ORAL 04/23/18 22:30 05/23/18 22:29 04/26/18 17:13 Dextrose (Dextrose 50%) 25 ml Q30M PRN IV Hypoglycemia 04/23/18 23:00 05/23/18 22:59 Dextrose (Dextrose 50%) 50 ml Q30M PRN IV Hypoglycemia 04/23/18 23:00 05/23/18 22:59 Docusate Sodium (Colace) 100 mg TWICE A DAY ORAL 04/24/18 09:00 05/24/18 08:59 04/26/18 17:13 Finasteride (Proscar) 5 mg DAILY ORAL 04/24/18 09:00 05/24/18 08:59 04/26/18 09:06 Gabapentin (Neurontin) 300 mg DAILY ORAL 04/24/18 09:00 05/24/18 08:59 04/26/18 09:05 Heparin Sodium (Porcine) (Heparin Sod 1000 units/ml 10ml) 500 unit ONCE PRN IV FOR HD USE ONLY 04/26/18 16:00 04/28/18 23:59 Heparin Sodium/ Dextrose 500 ml @ 37.888 mls/ hr ADJUST PER PROTOCOL IV 04/26/18 00:30 05/26/18 00:29 04/26/18 16:35 Insulin Aspart (NovoLOG) BEFORE MEALS AND HS SUBQ 04/24/18 06:30 05/24/18 06:29 04/26/18 11:52 Lidocaine HCl (Xylocaine 1% 30ml) 30 ml NOW PRN INJ Radiology Procedure 04/25/18 14:30 04/26/18 23:59 Meropenem 500 mg/ Sodium Chloride 55 ml @ 110 mls/hr Q24H IVPB 04/23/18 21:00 04/28/18 20:59 04/25/18 21:00 Pantoprazole (Protonix) 40 mg DAILY IVP 04/24/18 09:00 05/24/18 08:59 04/26/18 09:05 Sodium Chloride 1,000 ml @ 500 mls/hr Q2H PRN IVLG sbp<90 during hd 04/26/18 15:27 04/28/18 23:59 Tamsulosin HCl (Flomax) 0.4 mg BEDTIME ORAL 04/23/18 23:45 05/23/18 23:44 04/25/18 21:00 Vancomycin HCl (Vanco rx to dose) 1 ea DAILY PRN MISC Per rx protocol 04/23/18 18:15 05/23/18 18:14 Vitamin B Complex/ Vit C/Folic Acid (Nephrovite) 1 tab DAILY ORAL 04/26/18 09:00 05/26/18 08:59 04/26/18 09:06 Warfarin Sodium (Coumadin per pharmacy) 1 ea DAILY PRN MISC RX TO DOSE 04/26/18 19:00 05/26/18 18:14 Warfarin Sodium (Coumadin) 5 mg ONCE ONCE ORAL 04/26/18 20:00 04/26/18 20:01 Jaime Casey M.D. Apr 26, 2018 19:28
--- NOTE | 2018-04-26 19:44 | NUR ---
NURSE NOTES: Patient received sitting on the edge of bed, left foot elevated. Per AM shift, dressing just changed a couple of minutes ago, clean dry and intact. IV on SHANIA infusing heparin drip at 18/u/kg/hr, IV patent no signs of infiltration. Patient on o2 via NC, c/o mild sob, RT called for his pending scheduled Breathing treatment. Call light within reach, understands to call for assistance. Will continue to monitor.
[2018-04-26 20:00] VITALS: BP 136/90
[2018-04-26] MEDS ORDERED: Warfarin Sodium 5mg ORAL ONE (20:00)
--- NOTE | 2018-04-26 20:02 | NUR ---
HAND-OFF: Report given to CLEVE Mills.
[2018-04-26] MEDS: Tamsulosin 0.4mg cap ORAL SCH (20:38)
[2018-04-26] MEDS: Meropenem 500mg/NS 55ml IVPB SCH ×2 (20:39)
--- NOTE | 2018-04-26 21:45 | Consultation ---
DATE OF CONSULTATION: 04/26/2018 CONSULTING PHYSICIAN: Prakash Oliveira M.D. REFERRING PHYSICIAN: 1. Michael Raygoza D.P.M. 2. Moe Holt M.D. REASON FOR CONSULTATION: Left foot stump evaluation and left leg deep DVT. HISTORY OF PRESENT ILLNESS: This is a 67-year-old male, who is well known to our vascular service. The patient suffers from end-stage renal failure on hemodialysis, has had multiple AV shunts placed in both upper extremities by other physician with subsequent right hand amputation by another physician. The patient has a chronic history of SVC syndrome and chronic central vein occlusion with facial edema and COPD. The patient had a left leg and thigh superficial femoral vein transposition arteriovenous fistula by me for his permanent access several years ago which had been doing well. The patient has a chronic left lower extremity DVT from his vein harvest which is expected. The patient has chronic left leg edema. He smokes chronically cigarettes and marijuana and developed toe gangrene and necrosis, underwent transmetatarsal amputation by Dr. Raygoza. He reportedly had been noncompliant at home and walks. He has a transmetatarsal amputation stump with subsequent wound dehiscence. He has now presented for antibiotics and wound care. The patient currently has no other complaints. He had a lower extremity venous duplex, which revealed clots in the veins, which are expected. His V/Q was negative. It was low probability for pulmonary embolism. His left foot transmetatarsal amputation wound is pink with good granulation tissue. He had developed a left Achilles tendon wound. He has chronic lower extremity edema and he is not wearing his compression dressing. PAST MEDICAL HISTORY: As above. History of SVC syndrome. Chronic central vein occlusion. Bilateral arm AV shunt placement by another physician in another institution with subsequent right hand amputation by another physician. History of COPD, chronic smoker of cigarettes and marijuana, noncompliance, history of left leg and thigh superficial femoral vein transposition arteriovenous fistula. He has chronic diabetes mellitus, congestive heart failure, obstructive sleep apnea. MEDICATIONS: See attached MAR. ALLERGIES: He has no known drug allergies. SOCIAL HISTORY: Currently, he denies any smoking, drugs or alcohol, but he has a history of noncompliance and smoking cigarettes and marijuana on a daily basis. FAMILY HISTORY: Unremarkable. REVIEW OF SYSTEMS: CARDIOVASCULAR: No history of chest pain or palpitation. PULMONARY: Has chronic shortness of breath and sleep apnea with cough. GASTROINTESTINAL: No history of abdominal pain, constipation, or diarrhea. GENITOURINARY: No dysuria, frequency, or urgency. NEUROLOGIC: No history of strokes or seizures. PHYSICAL EXAMINATION: VITAL SIGNS: The patient is afebrile at 98.5, heart rate 108, respirations 20, blood pressure 166/98. Saturation 99% 2 liters. His amputation stump on the right hand is clear and intact. He has no significant arm edema. He does have chronic facial edema with bilateral arm scars. HEART: Regular rate and rhythm. ABDOMEN: Soft and nontender EXTREMITIES: Left thigh superficial femoral vein transposition arteriovenous fistula with a strongly palpable thrill. There is chronic left lower extremity venous edema with transmetatarsal amputation stump distally. He has small distal wound with pink granulation and he has a small left Achilles tendon wound in the lower extremity. V/Q scan was reviewed. LABORATORY AND DIAGNOSTIC DATA: Laboratories revealed WBC of 5.8, hemoglobin 8.0, platelet count 58. Sodium 136, potassium 4.7, BUN 57. IMPRESSION: 1. Chronic left lower extremity venous edema with chronic history of left leg superficial femoral vein transposition arteriovenous fistula, functional. 2. Left transmetatarsal amputation wound with good granulation tissue with small Achilles tendon wound. 3. No significant arterial occlusive disease with two vessel runoff on the recent diagnostic aortogram and leg angiogram in another hospital. 4. 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 5. History of noncompliance and chronic smoking history. PLAN AND RECOMMENDATIONS: 1. The patient needs to continue on Coumadin lifelong with therapeutic anticoagulation. 2. I would not place an IVC filter on this patient as this may limit his IVC outflow of his groin shunt and may thrombose his access. He does have superior vena cava syndrome and very limited venous access for hemodialysis therapy. Continue the local foot wound care per podiatry service and compression leg stockings and dressing to reduce leg venous edema. Antibiotics for his osteomyelitis per ID and SNF placement. 3. Smoking abstinence. The above was discussed at length with the patient and the nurse at bedside. Prakash Oliveira M.D. DR: Steven JOB#: [id number] CC: Prakash Oliveira M.D.; Fax#: [phone] MOE HOLT M.D. ; FAX#: [phone] Allison FLYNNPSharon; FAX#: [phone] [facility]'S HOSPITALDeshaun
--- NOTE | 2018-04-26 22:12 | General Progress Note ---
Assessment/Plan Assessment/Plan cellulitis osteo myosisits renal failure on dialysis ho chf ho ermias thrombocytopenia dvt vq negative abx per ID podiatry fup wound care arterial study noted dw Dr Raygoza, vascular eval from Dr Jeronimoarian apprecated DVT dw Dr Platt, Dr Leroy Raygoza, starting heparin ggt, monitor anemia and platelet closeley, heme evaluation appreicted patient with chronic low platelets from ho hepatitis per heme will hold off on ivc filter will need coumadin, has been on it in past dialysis dependent pulmonary fup cards fupecho noted monior platelets hgb dvt and ulcer prohylaxis Subjective Allergies: Coded Allergies: NO KNOWN DRUG ALLERGIES (Verified Allergy, Unknown, 03/06/18) Subjective above noted no sob no cough no chest painon heparin Objective Last 24 Hour Vital Signs Date Time Temp Pulse Resp B/P (MAP) Pulse Ox O2 Delivery O2 Flow Rate FiO2 04/26/18 21:00 Nasal Cannula 2.0 04/26/18 20:00 97.5 95 26 136/90 (105) 93 04/26/18 19:00 Nasal Cannula 2.0 28 04/26/18 19:00 Nasal Cannula 2.0 28 04/26/18 19:00 95 Nasal Cannula 2.0 28 04/26/18 19:00 Nasal Cannula 2.0 28 04/26/18 17:46 97.2 04/26/18 17:13 158/73 04/26/18 16:00 97.2 99 20 158/73 (101) 98 04/26/18 13:40 92 20 99 Nasal Cannula 2.0 28 04/26/18 13:35 92 22 95 Nasal Cannula 2.0 28 04/26/18 12:00 97.7 100 20 139/98 (112) 93 04/26/18 09:09 166/98 04/26/18 09:09 108 166/98 04/26/18 09:00 Nasal Cannula 2.0 04/26/18 08:15 Nasal Cannula 2.0 28 04/26/18 08:15 101 22 99 Nasal Cannula 2.0 28 04/26/18 08:15 97 Nasal Cannula 2.0 28 04/26/18 08:05 93 20 97 Nasal Cannula 2.0 28 04/26/18 08:00 98.5 108 20 166/98 (120) 94 04/26/18 04:00 98.5 108 19 158/93 (114) 94 04/26/18 01:25 99 20 98 Nasal Cannula 2.0 28 04/26/18 01:18 99 20 97 Nasal Cannula 2.0 28 04/26/18 00:00 98.9 101 18 159/88 (111) 98 04/25/18 23:10 104 18 96 Facial 30 Intake and Output 04/25/18 04/26/18 19:00 07:00 Intake Total 282.328 ml Output Total 3000 ml Balance -3000 ml 282.328 ml IV Total 282.328 ml Output Hemodialysis UF 3000 ml # Voids 1 Laboratory Tests 04/26/18 07:40: Activated Partial Thromboplast Time 43H 04/26/18 10:25: Activated Partial Thromboplast Time 65H, Hepatitis B DNA (IU/mL) [Pending] 04/26/18 19:01: Stool Occult Blood [Pending] Height (Feet): 5 Height (Inches): 7.00 Weight (Pounds): 232 General Appearance: WD/WN, no apparent distress Neck: supple Cardiovascular: normal rate Respiratory/Chest: lungs clear Objective left lower extremity dressing intact clean no bleeding Moe Sewell MD Apr 26, 2018 22:12
[2018-04-27] VITALS: BP 155/84
[2018-04-27] MEDS: HYDROcodone/Acetamin 10/325 tab ORAL PRN ×2 (03:20→18:13)
[2018-04-27 04:00] VITALS: BP 159/99
[2018-04-27 04:28] LABS: INR 1.1 (0.9-1.1)
--- NOTE | 2018-04-27 05:07 | NUR ---
NURSE NOTES: Spoke wtih pipeline rx, PTT result 85, per protocol, no change. and order PTT tomorrow AM. Will continue current rate 18u/kg/hr
[2018-04-27] MEDS: Heparin 25,000u/D5W 500ml 500 ML IV SCH ×2 (06:07→23:15)
[2018-04-27] MEDS: NovoLOG Insulin Flexpen SUBQ SCH ×4 (06:08→20:21)
[2018-04-27 06:14] LABS: HEMATOCRIT 24.9 % (42.0-52.0); HEMOGLOBIN 7.5 G/DL (14.2-18.0); MEAN CORPUSCULAR VOLUME 94 FL (80-99); PLATELET COUNT 63 K/UL (150-450); RED BLOOD COUNT 2.65 M/UL (4.70-6.10); RED CELL DISTRIBUTION WIDTH 18.2 % (11.6-14.8); WHITE BLOOD COUNT 5.2 K/UL (4.8-10.8)
--- NOTE | 2018-04-27 06:18 | NUR ---
NURSE NOTES: Offered to re-do dressing but patient only want it reinforced with more kerlix wrap.
[2018-04-27 06:53] LABS: ANION GAP 14 mmol/L (5-15); BLOOD UREA NITROGEN 74 mg/dL (7-18); CALCIUM 9.3 MG/DL (8.5-10.1); CARBON DIOXIDE 24 MMOL/L (21-32); CHLORIDE 94 MMOL/L (98-107); CREATININE 9.1 MG/DL (0.55-1.30); POTASSIUM 5.6 MMOL/L (3.5-5.1); SODIUM 132 MMOL/L (136-145)
--- NOTE | 2018-04-27 07:05 | NUR ---
HAND-OFF: Report given to Casie POON.
--- NOTE | 2018-04-27 07:06 | NUR ---
NURSE NOTES: Patient alert x4, getting breathing treatment, pt also on nasal cannula at 2 mL, no sign of distress or shortness of breath. No sign of chest pain. Heparin drip at 18 unit/kg/hr for AM shift, next APTT lab draw due 04/28/18, will keep on monitoring. Will check blood sugar as scheduled. Dressing dry and intact. Pt had Left wrist Heparin runs and Right Upper arm IV salen lock. Bed at lowest position, side rails up x2, breaks engaged. Call light within reach.
--- NOTE | 2018-04-27 07:24 | Podiatric Progress Note ---
Assessment/Plan Patient Teodoro Gabriel is a 67 year old male who was admitted on Apr 23, 2018 at 19:18 with Assessment/Plan A/ 1) Likely osteomyelitis of left stump site 2) Cellulitis left foot 3) Vascular wounds left stump site and left posterior ankle 4) PAD on ultz 5) DM 6) COPD 7) h/o smoker P/ 1) Cont wound care 2) Abx per ID. MRI reviewed, will likely need manager long term care abx 3) Consult Dr Oliveira for PAD - vasc recs reviewed and appreciated 4) Will need SNF placement for management of complex wound and medical conditions. Can d/c from my standpoint once cleared from other specialists. 5) Will follow Subjective Allergies: Coded Allergies: NO KNOWN DRUG ALLERGIES (Verified Allergy, Unknown, 03/06/18) Subjective Patient on CPAP. Objective Exam Last 24 Hour Vital Signs Date Time Temp Pulse Resp B/P (MAP) Pulse Ox O2 Delivery O2 Flow Rate FiO2 04/27/18 04:00 98.3 106 26 159/99 (119) 96 04/27/18 03:50 98.3 04/27/18 01:01 Nasal Cannula 2.0 28 04/27/18 01:01 Nasal Cannula 2.0 28 04/27/18 00:00 98.3 102 24 155/84 (107) 92 04/26/18 23:21 95 20 99 Nasal Cannula 2.0 28 04/26/18 23:12 93 24 92 Nasal Cannula 2.0 28 04/26/18 21:00 Nasal Cannula 2.0 04/26/18 20:00 97.5 95 26 136/90 (105) 93 04/26/18 19:00 Nasal Cannula 2.0 28 04/26/18 19:00 Nasal Cannula 2.0 28 04/26/18 19:00 95 Nasal Cannula 2.0 28 04/26/18 19:00 Nasal Cannula 2.0 28 04/26/18 17:13 158/73 04/26/18 16:00 97.2 99 20 158/73 (101) 98 04/26/18 13:40 92 20 99 Nasal Cannula 2.0 28 04/26/18 13:35 92 22 95 Nasal Cannula 2.0 28 04/26/18 12:00 97.7 100 20 139/98 (112) 93 04/26/18 09:09 166/98 04/26/18 09:09 108 166/98 04/26/18 09:00 Nasal Cannula 2.0 04/26/18 08:15 Nasal Cannula 2.0 28 04/26/18 08:15 101 22 99 Nasal Cannula 2.0 28 04/26/18 08:15 97 Nasal Cannula 2.0 28 04/26/18 08:05 93 20 97 Nasal Cannula 2.0 28 04/26/18 08:00 98.5 108 20 166/98 (120) 94 Laboratory Tests Test 04/26/18 07:40 04/26/18 10:25 04/26/18 19:01 04/27/18 04:10 Activated Partial Thromboplast Time 43 SEC (23-33) H 65 SEC (23-33) H 85 SEC (23-33) H Hepatitis B DNA (IU/mL) Pending Stool Occult Blood Pending White Blood Count 5.2 K/UL (4.8-10.8) Red Blood Count 2.65 M/UL (4.70-6.10) L Hemoglobin 7.5 G/DL (14.2-18.0) L Hematocrit 24.9 % (42.0-52.0) L Mean Corpuscular Volume 94 FL (80-99) Mean Corpuscular Hemoglobin 28.3 PG (27.0-31.0) Mean Corpuscular Hemoglobin Concent 30.1 G/DL (32.0-36.0) L Red Cell Distribution Width 18.2 % (11.6-14.8) H Platelet Count 63 K/UL (150-450) L Mean Platelet Volume 7.2 FL (6.5-10.1) Neutrophils (%) (Auto) % (45.0-75.0) Lymphocytes (%) (Auto) % (20.0-45.0) Monocytes (%) (Auto) % (1.0-10.0) Eosinophils (%) (Auto) % (0.0-3.0) Basophils (%) (Auto) % (0.0-2.0) Neutrophils % (Manual) Pending Lymphocytes % (Manual) Pending Platelet Estimate Pending Platelet Morphology Pending Prothrombin Time 11.6 SEC (9.30-11.50) H Prothromb Time International Ratio 1.1 (0.9-1.1) Sodium Level 132 MMOL/L (136-145) L Potassium Level 5.6 MMOL/L (3.5-5.1) H Chloride Level 94 MMOL/L (98-107) L Carbon Dioxide Level 24 MMOL/L (21-32) Anion Gap 14 mmol/L (5-15) Blood Urea Nitrogen 74 mg/dL (7-18) H Creatinine 9.1 MG/DL (0.55-1.30) H Estimat Glomerular Filtration Rate 7.2 mL/min (>60) Glucose Level 103 MG/DL (74-106) Calcium Level 9.3 MG/DL (8.5-10.1) Random Vancomycin Level Pending Microbiology Date/Time Source Procedure Growth Status 04/23/18 16:40 Blood Blood Culture - Final Staphylococcus Sp Coag Neg Complete 04/24/18 13:16 Wound Gram Stain - Final Resulted 04/24/18 13:16 Wound Culture - Preliminary Staphylococcus Aureus Usual Skin Marlene Resulted 04/23/18 18:17 Nasal Nares MRSA Culture - Final NO METHICILLIN RESISTANT STAPH AUREUS... Complete 04/23/18 18:17 Rectum VRE Culture - Final Enterococcus Faecium - Vre Complete 04/23/18 18:17 Rectum - Final NO CARBAPENEM-RESISTANT ENTEROBACTERI... Complete Dermatological Dermatological Narrative Wounds granular. No strike through on bandages Michael Raygoza DPM Apr 27, 2018 07:24
[2018-04-27] MEDS: Albuterol/Ipratropium 3ml neb HHN SCH ×3 (07:57→20:35)
[2018-04-27 08:00] VITALS: BP 141/90
[2018-04-27] MEDS: cloNIDine 0.2mg Tab ORAL SCH ×2 (08:32→17:27)
[2018-04-27] MEDS: Docusate 100mg cap ORAL SCH ×2 (08:32→17:27)
[2018-04-27] MEDS: Nephrovite tab (Rena-Vite) ORAL SCH (08:33)
[2018-04-27] MEDS: Pantoprazole Inj IVP SCH (08:33)
[2018-04-27] MEDS: Allopurinol 100mg Tab ORAL SCH (08:33)
--- NOTE | 2018-04-27 10:25 | NUR ---
NURSE NOTES: Patient wants to be on CPAP, RT notified.
[2018-04-27 12:00] VITALS: BP 153/84
--- NOTE | 2018-04-27 12:56 | Cardiac Electrophysiology PN ---
Assessment/Plan Status Narrative Normal left ventricular chamber size, systolic function and wall motion. Left ventricular ejection fraction estimated to be 60-65 %. Moderate left ventricular hypertrophy by 2-D. Small posterior pericardial effusion. Moderate left atrial enlargement. Mild right atrial enlargement. Right ventricular chamber size is within normal limits. Moderate aortic valve calcification with decreased cusp excursion c/w aortic stenosis. Moderately thickened mitral valve leaflets with normal excursion. Mitral annulus and aortic root calcification. Pulmonic valve not well visualized. Normal tricuspid valve structure. IVC dilated at 2.4 cm with slight physiologic collapse suggestive of in Assessment/Plan 1. Congestive heart failure. BNP of more than 35,000 on hemodialysis. EF 65% 2. Troponin elevation. Troponin of 0.057. It could be due to renal failure. The patient does not have any chest pain. Echocardiogram EF 65%. 3. Hypertension. On hemodialysis, Norvasc 5 mg daily and clonidine 0.2 mg b.i.d. 4. Lower extremity cellulitis, on meropenem and vancomycin. 5. Morbid obesity. 6. Peripheral vascular disease. DW RN and RT Subjective Subjective Sitting in chair with BIPAP on. Objective Last 24 Hour Vital Signs Date Time Temp Pulse Resp B/P (MAP) Pulse Ox O2 Delivery O2 Flow Rate FiO2 04/27/18 10:20 97 24 98 Facial 30 04/27/18 09:00 Nasal Cannula 2.0 04/27/18 08:32 141/90 04/27/18 08:32 91 141/90 04/27/18 08:04 91 20 96 Nasal Cannula 2.0 28 04/27/18 08:00 98.2 88 20 141/90 (107) 95 04/27/18 07:57 94 22 96 Nasal Cannula 2.0 28 04/27/18 07:57 96 Nasal Cannula 2.0 28 04/27/18 07:57 Nasal Cannula 2.0 28 04/27/18 04:00 98.3 106 26 159/99 (119) 96 04/27/18 03:50 98.3 04/27/18 01:01 Nasal Cannula 2.0 28 04/27/18 01:01 Nasal Cannula 2.0 28 04/27/18 00:00 98.3 102 24 155/84 (107) 92 04/26/18 23:21 95 20 99 Nasal Cannula 2.0 28 1/11/19 23:12 93 24 92 Nasal Cannula 2.0 28 04/26/18 21:00 Nasal Cannula 2.0 04/26/18 20:00 97.5 95 26 136/90 (105) 93 04/26/18 19:00 Nasal Cannula 2.0 28 04/26/18 19:00 Nasal Cannula 2.0 28 04/26/18 19:00 95 Nasal Cannula 2.0 28 04/26/18 19:00 Nasal Cannula 2.0 28 04/26/18 17:13 158/73 04/26/18 16:00 97.2 99 20 158/73 (101) 98 04/26/18 13:40 92 20 99 Nasal Cannula 2.0 28 04/26/18 13:35 92 22 95 Nasal Cannula 2.0 28 Intake and Output 04/26/18 04/27/18 19:00 07:00 Intake Total 637.888 ml 509.6568 ml Balance 637.888 ml 509.6568 ml Intake Oral 600 ml IV Total 37.888 ml 509.6568 ml Laboratory Tests Test 04/26/18 19:01 04/27/18 04:10 Stool Occult Blood Pending White Blood Count 5.2 K/UL (4.8-10.8) Red Blood Count 2.65 M/UL (4.70-6.10) L Hemoglobin 7.5 G/DL (14.2-18.0) L Hematocrit 24.9 % (42.0-52.0) L Mean Corpuscular Volume 94 FL (80-99) Mean Corpuscular Hemoglobin 28.3 PG (27.0-31.0) Mean Corpuscular Hemoglobin Concent 30.1 G/DL (32.0-36.0) L Red Cell Distribution Width 18.2 % (11.6-14.8) H Platelet Count 63 K/UL (150-450) L Mean Platelet Volume 7.2 FL (6.5-10.1) Neutrophils (%) (Auto) % (45.0-75.0) Lymphocytes (%) (Auto) % (20.0-45.0) Monocytes (%) (Auto) % (1.0-10.0) Eosinophils (%) (Auto) % (0.0-3.0) Basophils (%) (Auto) % (0.0-2.0) Differential Total Cells Counted 100 Neutrophils % (Manual) 76 % (45-75) H Lymphocytes % (Manual) 10 % (20-45) L Monocytes % (Manual) 12 % (1-10) H Eosinophils % (Manual) 2 % (0-3) Basophils % (Manual) 0 % (0-2) Band Neutrophils 0 % (0-8) Platelet Estimate Decreased L Platelet Morphology Normal Hypochromasia 2+ Anisocytosis 2+ Prothrombin Time 11.6 SEC (9.30-11.50) H Prothromb Time International Ratio 1.1 (0.9-1.1) Activated Partial Thromboplast Time 85 SEC (23-33) H Sodium Level 132 MMOL/L (136-145) L Potassium Level 5.6 MMOL/L (3.5-5.1) H Chloride Level 94 MMOL/L (98-107) L Carbon Dioxide Level 24 MMOL/L (21-32) Anion Gap 14 mmol/L (5-15) Blood Urea Nitrogen 74 mg/dL (7-18) H Creatinine 9.1 MG/DL (0.55-1.30) H Estimat Glomerular Filtration Rate 7.2 mL/min (>60) Glucose Level 103 MG/DL (74-106) Calcium Level 9.3 MG/DL (8.5-10.1) Random Vancomycin Level 18.2 ug/mL Microbiology Date/Time Source Procedure Growth Status 04/24/18 13:16 Wound Gram Stain - Final Resulted 04/24/18 13:16 Wound Culture - Preliminary Staphylococcus Aureus Usual Skin Marlene Resulted Objective HEAD AND NECK: No JVD.BIPAP on LUNGS: Decreased breath sounds. CARDIOVASCULAR: Regular S1 and S2 with no gallop. ABDOMEN: Soft. EXTREMITIES: Status post multiple amputations, 2+ lower extremity edema. Shelton Perdomo MD Apr 27, 2018 12:56
[2018-04-27] MEDS: Vigamox Opth Soln 3ml BOTH EYES SCH ×2 (14:00→23:10)
--- NOTE | 2018-04-27 14:16 | NUR ---
NURSE NOTES: Patient's ABG result and MRSA-Wound notified to Dr Casey.
--- NOTE | 2018-04-27 14:37 | NUR ---
NURSE NOTES: Patient is getting dialysis. Will keep monitoring.
--- NOTE | 2018-04-27 14:47 | Infectious Diseases Prog Note ---
Assessment/Plan Problems: (1) Acute osteomyelitis of metatarsal bone of left foot Assessment & Plan: left stump wound is growing MRSA and gram negative rods , continue meropenem and vancomycin treatment for now pending final cultures of the stump wound for osteomyelitis of the left foot metatarsal bone . continue local wound care and dressings change as per landman. vascular recommended no revascularization (2) Achilles tendon infection Assessment & Plan: with open wound, already on wide spectrum antibiotics coverage , continue local wound care and dressings change , podiatry is following (3) Diabetic foot infection Assessment & Plan: continue wide spectrum antibiotics , with tight glycemic control. (4) ESRD (end stage renal disease) Assessment & Plan: on HD , renal is following (5) PVD (peripheral vascular disease) Assessment & Plan: recommend vascular eval for possible angioplasty of the left leg (6) Hepatitis B surface antigen positive Assessment & Plan: rule out active HBV infection, will order viral load to confirm (7) Acute dyspnea Assessment & Plan: rule out fluids over load , will order ABG, and CXR , continue BIPAP, pulmonary is following (8) Acute bacterial conjunctivitis Assessment & Plan: will start moxifloxacin eye drops for 5 days Subjective Constitutional: Reports: no symptoms HEENT: Reports: congestion, other - eye discharge Respiratory: Reports: shortness of breath Breasts: Reports: no symptoms Cardiovascular: Reports: no symptoms Gastrointestinal/Abdominal: Reports: no symptoms Genitourinary: Reports: no symptoms Neurologic: Reports: weakness Psychiatric: Reports: no symptoms Skin: Reports: ulcer Endocrine: Reports: no symptoms Hematologic: Reports: no symptoms Musculoskeletal: Reports: pain, swelling Allergies: Coded Allergies: NO KNOWN DRUG ALLERGIES (Verified Allergy, Unknown, 03/06/18) Subjective he was short of breath this am after he was off CPAP , so he was started on BIPAP , with improvement of his SOB, now feels better with less pain and swelling in his left foot Objective Vital Signs Last 24 Hour Vital Signs Date Time Temp Pulse Resp B/P (MAP) Pulse Ox O2 Delivery O2 Flow Rate FiO2 04/27/18 13:50 101 20 98 Facial 30 04/27/18 12:31 92 20 96 Nasal Cannula 2.0 28 04/27/18 12:21 91 22 96 Nasal Cannula 2.0 28 04/27/18 10:20 97 24 98 Facial 30 04/27/18 09:00 Nasal Cannula 2.0 04/27/18 08:32 141/90 04/27/18 08:32 91 141/90 04/27/18 08:04 91 20 96 Nasal Cannula 2.0 28 04/27/18 08:00 98.2 88 20 141/90 (107) 95 04/27/18 07:57 94 22 96 Nasal Cannula 2.0 28 04/27/18 07:57 96 Nasal Cannula 2.0 28 04/27/18 07:57 Nasal Cannula 2.0 28 04/27/18 04:00 98.3 106 26 159/99 (119) 96 04/27/18 03:50 98.3 04/27/18 01:01 Nasal Cannula 2.0 28 04/27/18 01:01 Nasal Cannula 2.0 28 04/27/18 00:00 98.3 102 24 155/84 (107) 92 04/26/18 23:21 95 20 99 Nasal Cannula 2.0 28 04/26/18 23:12 93 24 92 Nasal Cannula 2.0 28 04/26/18 21:00 Nasal Cannula 2.0 04/26/18 20:00 97.5 95 26 136/90 (105) 93 04/26/18 19:00 Nasal Cannula 2.0 28 04/26/18 19:00 Nasal Cannula 2.0 28 04/26/18 19:00 95 Nasal Cannula 2.0 28 04/26/18 19:00 Nasal Cannula 2.0 28 04/26/18 17:13 158/73 04/26/18 16:00 97.2 99 20 158/73 (101) 98 Height (Feet): 5 Height (Inches): 7.00 Weight (Pounds): 232 General Appearance: WD/WN, no acute distress HEENT: normocephalic, atraumatic, anicteric, PERRL, pharynx normal, supple, no JVD, other - thick secretions from both eyes Respiratory/Chest: chest wall non-tender, no respiratory distress, no accessory muscle use, decreased breath sounds Cardiovascular: normal peripheral pulses, normal rate, regular rhythm, no gallop/murmur, no JVD Abdomen: normal bowel sounds, soft, non tender, no organomegaly, non distended , no mass, no scars Extremities: no cyanosis, no clubbing Skin: no rash, no lesions, ulcers Neurologic/Psychiatric: alert, oriented x 3, responsive Lymphatic: no neck adenopathy, no groin adenopathy Musculoskeletal: normal muscle bulk, no effusion Laboratory Tests Test 04/26/18 19:01 04/27/18 04:10 04/27/18 12:55 Stool Occult Blood Pending White Blood Count 5.2 K/UL (4.8-10.8) Red Blood Count 2.65 M/UL (4.70-6.10) L Hemoglobin 7.5 G/DL (14.2-18.0) L Hematocrit 24.9 % (42.0-52.0) L Mean Corpuscular Volume 94 FL (80-99) Mean Corpuscular Hemoglobin 28.3 PG (27.0-31.0) Mean Corpuscular Hemoglobin Concent 30.1 G/DL (32.0-36.0) L Red Cell Distribution Width 18.2 % (11.6-14.8) H Platelet Count 63 K/UL (150-450) L Mean Platelet Volume 7.2 FL (6.5-10.1) Neutrophils (%) (Auto) % (45.0-75.0) Lymphocytes (%) (Auto) % (20.0-45.0) Monocytes (%) (Auto) % (1.0-10.0) Eosinophils (%) (Auto) % (0.0-3.0) Basophils (%) (Auto) % (0.0-2.0) Differential Total Cells Counted 100 Neutrophils % (Manual) 76 % (45-75) H Lymphocytes % (Manual) 10 % (20-45) L Monocytes % (Manual) 12 % (1-10) H Eosinophils % (Manual) 2 % (0-3) Basophils % (Manual) 0 % (0-2) Band Neutrophils 0 % (0-8) Platelet Estimate Decreased L Platelet Morphology Normal Hypochromasia 2+ Anisocytosis 2+ Prothrombin Time 11.6 SEC (9.30-11.50) H Prothromb Time International Ratio 1.1 (0.9-1.1) Activated Partial Thromboplast Time 85 SEC (23-33) H Sodium Level 132 MMOL/L (136-145) L Potassium Level 5.6 MMOL/L (3.5-5.1) H Chloride Level 94 MMOL/L (98-107) L Carbon Dioxide Level 24 MMOL/L (21-32) Anion Gap 14 mmol/L (5-15) Blood Urea Nitrogen 74 mg/dL (7-18) H Creatinine 9.1 MG/DL (0.55-1.30) H Estimat Glomerular Filtration Rate 7.2 mL/min (>60) Glucose Level 103 MG/DL (74-106) Calcium Level 9.3 MG/DL (8.5-10.1) Random Vancomycin Level 18.2 ug/mL Arterial Blood pH 7.377 (7.350-7.450) Arterial Blood Partial Pressure CO2 42.6 mmHg (35.0-45.0) Arterial Blood Partial Pressure O2 105.0 mmHg (75.0-100.0) H Arterial Blood HCO3 24.5 mmol/L (22.0-26.0) Arterial Blood Oxygen Saturation 97.6 % (95-100) Arterial Blood Base Excess -0.7 (-2-2) Yuval Test Positive Current Medications Medications (Trade) Dose Ordered Sig/Oliverio Route PRN Reason Start Time Stop Time Status Last Admin Dose Admin Acetaminophen (Tylenol) 650 mg Q6H PRN ORAL Mild Pain/Temp > 100.5 04/23/18 22:30 05/23/18 22:29 Acetaminophen/ Hydrocodone Bitart ([place] 10/325) 1 tab Q6H PRN ORAL For Pain 04/23/18 22:30 04/30/18 22:29 04/27/18 03:20 Albuterol/ Ipratropium (Albuterol/ Ipratropium) 3 ml Q6HRT HHN 04/24/18 15:15 04/29/18 15:14 04/27/18 12:21 Allopurinol (Zyloprim) 100 mg DAILY ORAL 04/24/18 09:00 05/24/18 08:59 04/27/18 08:33 Amlodipine Besylate (Norvasc) 5 mg DAILY ORAL 04/24/18 09:00 05/24/18 08:59 04/27/18 08:32 Calcium Carbonate (Tums) 500 mg TIDPRN PRN ORAL Nausea & Vomiting/Dyspepsia 04/26/18 14:00 05/26/18 13:59 Clonidine HCl (Catapres tab) 0.2 mg BID ORAL 04/23/18 22:30 2/7/19 22:29 04/27/18 08:32 Dextrose (Dextrose 50%) 25 ml Q30M PRN IV Hypoglycemia 04/23/18 23:00 05/23/18 22:59 Dextrose (Dextrose 50%) 50 ml Q30M PRN IV Hypoglycemia 04/23/18 23:00 05/23/18 22:59 Docusate Sodium (Colace) 100 mg TWICE A DAY ORAL 04/24/18 09:00 05/24/18 08:59 04/27/18 08:32 Finasteride (Proscar) 5 mg DAILY ORAL 04/24/18 09:00 05/24/18 08:59 04/27/18 08:33 Gabapentin (Neurontin) 300 mg DAILY ORAL 04/24/18 09:00 05/24/18 08:59 04/27/18 08:33 Heparin Sodium (Porcine) (Heparin Sod 1000 units/ml 10ml) 500 unit ONCE PRN IV FOR HD USE ONLY 04/26/18 16:00 04/28/18 23:59 Heparin Sodium/ Dextrose 500 ml @ 37.888 mls/ hr ADJUST PER PROTOCOL IV 04/26/18 00:30 05/26/18 00:29 04/27/18 06:07 Insulin Aspart (NovoLOG) BEFORE MEALS AND HS SUBQ 04/24/18 06:30 05/24/18 06:29 04/27/18 11:40 Meropenem 500 mg/ Sodium Chloride 55 ml @ 110 mls/hr Q24H IVPB 04/23/18 21:00 05/02/18 20:59 04/26/18 20:39 Moxifloxacin HCl (Vigamox) 1 drop Q8HR BOTH EYES 04/27/18 14:00 05/04/18 13:59 Pantoprazole (Protonix) 40 mg DAILY IVP 04/24/18 09:00 05/24/18 08:59 04/27/18 08:33 Sodium Chloride 1,000 ml @ 500 mls/hr Q2H PRN IVLG sbp<90 during hd 04/26/18 15:27 04/28/18 23:59 Tamsulosin HCl (Flomax) 0.4 mg BEDTIME ORAL 04/23/18 23:45 05/23/18 23:44 04/26/18 20:38 Vancomycin HCl (Vanco rx to dose) 1 ea DAILY PRN MISC Per rx protocol 04/23/18 18:15 05/23/18 18:14 Vancomycin HCl 1 gm/Dextrose 275 ml @ 183.708 mls/hr ONCE IVPB 04/27/18 21:00 04/27/18 23:00 Vitamin B Complex/ Vit C/Folic Acid (Nephrovite) 1 tab DAILY ORAL 04/26/18 09:00 05/26/18 08:59 04/27/18 08:33 Warfarin Sodium (Coumadin per pharmacy) 1 ea DAILY PRN MISC RX TO DOSE 04/26/18 19:00 05/26/18 18:14 Warfarin Sodium (Coumadin) 5 mg ONCE ORAL 04/27/18 17:00 04/27/18 19:00 Jaime Casey M.D. Apr 27, 2018 14:47
--- NOTE | 2018-04-27 15:17 | NUR ---
NURSE NOTES: Patient is getting dialysis, and sleeping. Will give the eye drop once patient finishes dialysis.
--- NOTE | 2018-04-27 15:25 | Nephrology Progress Note ---
Assessment/Plan Problem List: (1) ESRD (end stage renal disease) (2) Diabetic infection of left foot (3) Acute DVT (deep venous thrombosis) Assessment: LLE (4) PVD (peripheral vascular disease) (5) Anemia Assessment: worse (6) Iron deficiency (7) Thrombocytopenia Assessment: stable Plan HD with UF as tolerated Start Epogen +IV Iron abxs anticoagulation follow labs Discussed with and HD RN Subjective Subjective seen on HD on BIPAP Objective Objective Last 24 Hour Vital Signs Date Time Temp Pulse Resp B/P (MAP) Pulse Ox O2 Delivery O2 Flow Rate FiO2 04/27/18 13:50 101 20 98 Facial 30 04/27/18 12:31 92 20 96 Nasal Cannula 2.0 28 04/27/18 12:21 91 22 96 Nasal Cannula 2.0 28 04/27/18 10:20 97 24 98 Facial 30 04/27/18 09:00 Nasal Cannula 2.0 04/27/18 08:32 141/90 04/27/18 08:32 91 141/90 04/27/18 08:04 91 20 96 Nasal Cannula 2.0 28 04/27/18 08:00 98.2 88 20 141/90 (107) 95 04/27/18 07:57 94 22 96 Nasal Cannula 2.0 28 04/27/18 07:57 96 Nasal Cannula 2.0 28 04/27/18 07:57 Nasal Cannula 2.0 28 04/27/18 04:00 98.3 106 26 159/99 (119) 96 04/27/18 03:50 98.3 04/27/18 01:01 Nasal Cannula 2.0 28 04/27/18 01:01 Nasal Cannula 2.0 28 04/27/18 00:00 98.3 102 24 155/84 (107) 92 04/26/18 23:21 95 20 99 Nasal Cannula 2.0 28 04/26/18 23:12 93 24 92 Nasal Cannula 2.0 28 04/26/18 21:00 Nasal Cannula 2.0 04/26/18 20:00 97.5 95 26 136/90 (105) 93 04/26/18 19:00 Nasal Cannula 2.0 28 04/26/18 19:00 Nasal Cannula 2.0 28 04/26/18 19:00 95 Nasal Cannula 2.0 28 04/26/18 19:00 Nasal Cannula 2.0 28 04/26/18 17:13 158/73 04/26/18 16:00 97.2 99 20 158/73 (101) 98 Intake and Output 04/26/18 04/27/18 19:00 07:00 Intake Total 637.888 ml 509.6568 ml Balance 637.888 ml 509.6568 ml Intake Oral 600 ml IV Total 37.888 ml 509.6568 ml Laboratory Tests 04/26/18 19:01: Stool Occult Blood Positive 04/27/18 04:10: White Blood Count 5.2, Red Blood Count 2.65L, Hemoglobin 7.5L, Hematocrit 24.9L , Mean Corpuscular Volume 94, Mean Corpuscular Hemoglobin 28.3, Mean Corpuscular Hemoglobin Concent 30.1L, Red Cell Distribution Width 18.2H, Platelet Count 63L, Mean Platelet Volume 7.2, Neutrophils (%) (Auto) , Lymphocytes (%) (Auto) , Monocytes (%) (Auto) , Eosinophils (%) (Auto) , Basophils (%) (Auto) , Differential Total Cells Counted 100, Neutrophils % ( Manual) 76H, Lymphocytes % (Manual) 10L, Monocytes % (Manual) 12H, Eosinophils % (Manual) 2, Basophils % (Manual) 0, Band Neutrophils 0, Platelet Estimate DecreasedL, Platelet Morphology Normal, Hypochromasia 2+, Anisocytosis 2+, Prothrombin Time 11.6H, Prothromb Time International Ratio 1.1, Activated Partial Thromboplast Time 85H, Sodium Level 132L, Potassium Level 5.6H, Chloride Level 94L, Carbon Dioxide Level 24, Anion Gap 14, Blood Urea Nitrogen 74H, Creatinine 9.1H, Estimat Glomerular Filtration Rate 7.2, Glucose Level 103 , Calcium Level 9.3, Random Vancomycin Level 18.2 04/27/18 12:55: Arterial Blood pH 7.377, Arterial Blood Partial Pressure CO2 42.6, Arterial Blood Partial Pressure O2 105.0H, Arterial Blood HCO3 24.5, Arterial Blood Oxygen Saturation 97.6, Arterial Blood Base Excess -0.7, Yuval Test Positive Height (Feet): 5 Height (Inches): 7.00 Weight (Pounds): 232 Cardiovascular: normal rate Respiratory/Chest: rhonchi - bilaterally Extremities: moderate edema, severe edema Johan Harper MD Apr 27, 2018 15:25
--- NOTE | 2018-04-27 15:33 | NUR ---
NURSE NOTES: Radiology couldn't able to take the chest x-ray because patient is getting dialysis, will notify radiology once patient is done with dialysis.
--- NOTE | 2018-04-27 15:46 | General Progress Note ---
Assessment/Plan Assessment/Plan # DVT of the deep veins superficial and politeal of the left leg, thrombocytopenia likely due to hep B chronic status --> VQ scan shows low probability of PE --> remains with anemia and low platelets therefore contraindication for anticoagulation --> will hold off on IVC filter --> started on coumadin inr goal 2-3 --> Cards and pulm recs appreciated as well as renal, vasc # Thrombocytopenia -- plt goal >20k, transfuse as required, hepatitis B chronic infection --> plt trend in the 66k-->63k-->58k-->60k (likely chronic) --> hep B noted and if no change in plt, consider anticoagulation --> coumadin started # Anemia of chronic disease --> anemia panel has been reviewed, no iron def noted --> hgb goal >7, transfuse as needed --> peripheral smear to be reviewed # Acute CHF exacerbation/pulmonary edema --> as per pulm # COPD w/o obvious exacerbation # CHU # ESRD on HD --> hd as per renal # Hx multiple amputations # Diabetic foot infection --> as per ID # Hepatitis B ++ Ag # Acute CHF exacerbation/pulmonary edema # COPD w/o obvious exacerbation Time of note does not necessarily reflect time of encounter Greatly appreciate consultation! Subjective Constitutional: Denies: no symptoms, chills, diaphoresis, fever, malaise, weakness, other HEENT: Denies: no symptoms, eye pain, blurred vision, tearing, double vision, ear pain, ear discharge, nose pain, nose congestion, throat pain, throat swelling, mouth pain, mouth swelling, other Cardiovascular: Denies: no symptoms, chest pain, edema, irregular heart rate, lightheadedness, palpitations, syncope, other Respiratory: Denies: no symptoms, cough, orthopnea, shortness of breath, SOB with excertion, SOB at rest, sputum, stridor, wheezing, other Gastrointestinal/Abdominal: Denies: no symptoms, abdomen distended, abdominal pain, black stools, tarry stools, blood in stool, constipated, diarrhea, difficulty swallowing, nausea, poor appetite, poor fluid intake, rectal bleeding , vomiting, other Genitourinary: Denies: no symptoms, burning, discharge, frequency, flank pain, hematuria, incontinence, pain, urgency, other Neurologic/Psychiatric: Denies: no symptoms, anxiety, depressed, emotional problems, headache, numbness, paresthesia, pre-existing deficit, seizure, tingling, tremors, weakness, other Endocrine: Denies: no symptoms, excessive sweating, flushing, intolerance to cold, intolerance to heat, increased hunger, increased thirst, increased urine, unexplained weight gain, unexplained weight loss, other Allergies: Coded Allergies: NO KNOWN DRUG ALLERGIES (Verified Allergy, Unknown, 03/06/18) Subjective 04/26: no events, potential plan for ivc f on sunday.12: no further ivc filter planned, started on coumadin inr goal 2-3 Objective Last 24 Hour Vital Signs Date Time Temp Pulse Resp B/P (MAP) Pulse Ox O2 Delivery O2 Flow Rate FiO2 04/27/18 13:50 101 20 98 Facial 30 04/27/18 12:31 92 20 96 Nasal Cannula 2.0 28 04/27/18 12:21 91 22 96 Nasal Cannula 2.0 28 04/27/18 12:00 97.2 92 20 153/84 (107) 97 04/27/18 10:20 97 24 98 Facial 30 04/27/18 09:00 Nasal Cannula 2.0 04/27/18 08:32 141/90 04/27/18 08:32 91 141/90 04/27/18 08:04 91 20 96 Nasal Cannula 2.0 28 04/27/18 08:00 98.2 88 20 141/90 (107) 95 04/27/18 07:57 94 22 96 Nasal Cannula 2.0 28 04/27/18 07:57 96 Nasal Cannula 2.0 28 04/27/18 07:57 Nasal Cannula 2.0 28 04/27/18 04:00 98.3 106 26 159/99 (119) 96 04/27/18 03:50 98.3 04/27/18 01:01 Nasal Cannula 2.0 28 04/27/18 01:01 Nasal Cannula 2.0 28 04/27/18 00:00 98.3 102 24 155/84 (107) 92 04/26/18 23:21 95 20 99 Nasal Cannula 2.0 28 04/26/18 23:12 93 24 92 Nasal Cannula 2.0 28 04/26/18 21:00 Nasal Cannula 2.0 04/26/18 20:00 97.5 95 26 136/90 (105) 93 04/26/18 19:00 Nasal Cannula 2.0 28 04/26/18 19:00 Nasal Cannula 2.0 28 04/26/18 19:00 95 Nasal Cannula 2.0 28 04/26/18 19:00 Nasal Cannula 2.0 28 04/26/18 17:13 158/73 04/26/18 16:00 97.2 99 20 158/73 (101) 98 Intake and Output 04/26/18 04/27/18 19:00 07:00 Intake Total 637.888 ml 509.6568 ml Balance 637.888 ml 509.6568 ml Intake Oral 600 ml IV Total 37.888 ml 509.6568 ml Laboratory Tests 04/26/18 19:01: Stool Occult Blood Positive 04/27/18 04:10: White Blood Count 5.2, Red Blood Count 2.65L, Hemoglobin 7.5L, Hematocrit 24.9L , Mean Corpuscular Volume 94, Mean Corpuscular Hemoglobin 28.3, Mean Corpuscular Hemoglobin Concent 30.1L, Red Cell Distribution Width 18.2H, Platelet Count 63L, Mean Platelet Volume 7.2, Neutrophils (%) (Auto) , Lymphocytes (%) (Auto) , Monocytes (%) (Auto) , Eosinophils (%) (Auto) , Basophils (%) (Auto) , Differential Total Cells Counted 100, Neutrophils % ( Manual) 76H, Lymphocytes % (Manual) 10L, Monocytes % (Manual) 12H, Eosinophils % (Manual) 2, Basophils % (Manual) 0, Band Neutrophils 0, Platelet Estimate DecreasedL, Platelet Morphology Normal, Hypochromasia 2+, Anisocytosis 2+, Prothrombin Time 11.6H, Prothromb Time International Ratio 1.1, Activated Partial Thromboplast Time 85H, Sodium Level 132L, Potassium Level 5.6H, Chloride Level 94L, Carbon Dioxide Level 24, Anion Gap 14, Blood Urea Nitrogen 74H, Creatinine 9.1H, Estimat Glomerular Filtration Rate 7.2, Glucose Level 103 , Calcium Level 9.3, Random Vancomycin Level 18.2 04/27/18 12:55: Arterial Blood pH 7.377, Arterial Blood Partial Pressure CO2 42.6, Arterial Blood Partial Pressure O2 105.0H, Arterial Blood HCO3 24.5, Arterial Blood Oxygen Saturation 97.6, Arterial Blood Base Excess -0.7, Yuval Test Positive Height (Feet): 5 Height (Inches): 7.00 Weight (Pounds): 232 General Appearance: lethargic EENT: TMs normal Neck: supple Cardiovascular: regular rhythm Respiratory/Chest: lungs clear Abdomen: abnormal bowel sounds Extremities: non-tender Edema: mild edema Neurologic: oriented x 3 Skin: warm/dry Juve Soto MD Apr 27, 2018 15:46
[2018-04-27 16:00] VITALS: BP 165/95
--- NOTE | 2018-04-27 16:57 | NUR ---
NURSE NOTES: 3.5 Liter removed by dialysis nurse.
[2018-04-27] MEDS ORDERED: Warfarin Sodium 5mg ORAL SCH (17:00)
[2018-04-27] MEDS ORDERED: Epogen (for ESRD on dialysis) SUBQ ONE (17:00)
--- NOTE | 2018-04-27 17:58 | NUR ---
NURSE NOTES: Heparin drip stopped during dialysis, Charge nurse is aware.
--- NOTE | 2018-04-27 18:01 | NUR ---
NURSE NOTES: Epogen wasn't delivered, pharmacy is aware. Waiting for delivery.
--- NOTE | 2018-04-27 18:20 | Pulmonology Progress Note ---
Assessment/Plan Assessment/Plan 1. Diabetic foot infection 2. Acute CHF exacerbation/pulmonary edema 3. COPD w/o obvious exacerbation 4. CHU 5. ESRD on HD 6. Hx multiple amputations 7. Thrombocytopenia 8. Anemia 9. L leg DVT Plan: Abx per ID f/u cultures Podiatric wound care/debridement as needed Monitor volumes, cont volume removed with HD Duonebs q6 Cont CPAP 10 cm H2O qhs and prn distress, wean off during the day if tolerated Heparin gtt for DVT, cautiously observe platelets Heme f/u May need IVC filter, awaiting vascular eval for legs as well-still pending Subjective Constitutional: Reports: no symptoms HEENT: Repors: no symptoms Respiratory: Reports: no symptoms Cardiovascular: Reports: no symptoms Gastrointestinal/Abdominal: Reports: no symptoms Allergies: Coded Allergies: NO KNOWN DRUG ALLERGIES (Verified Allergy, Unknown, 03/06/18) Subjective on cpap which he is reequiring 24 hours shortness of breath when taken off HD today no cp nv or bleeding noted Objective Last 24 Hour Vital Signs Date Time Temp Pulse Resp B/P (MAP) Pulse Ox O2 Delivery O2 Flow Rate FiO2 04/27/18 17:27 165/95 04/27/18 16:40 96 18 97 Facial 30 04/27/18 16:00 98.0 100 20 165/95 (118) 98 04/27/18 13:50 101 20 98 Facial 30 04/27/18 12:31 92 20 96 Nasal Cannula 2.0 28 04/27/18 12:21 91 22 96 Nasal Cannula 2.0 28 04/27/18 12:00 97.2 92 20 153/84 (107) 97 04/27/18 10:20 97 24 98 Facial 30 04/27/18 09:00 Nasal Cannula 2.0 04/27/18 08:32 141/90 04/27/18 08:32 91 141/90 04/27/18 08:04 91 20 96 Nasal Cannula 2.0 28 04/27/18 08:00 98.2 88 20 141/90 (107) 95 04/27/18 07:57 94 22 96 Nasal Cannula 2.0 28 04/27/18 07:57 96 Nasal Cannula 2.0 28 04/27/18 07:57 Nasal Cannula 2.0 28 04/27/18 04:00 98.3 106 26 159/99 (119) 96 04/27/18 03:50 98.3 04/27/18 01:01 Nasal Cannula 2.0 28 04/27/18 01:01 Nasal Cannula 2.0 28 04/27/18 00:00 98.3 102 24 155/84 (107) 92 04/26/18 23:21 95 20 99 Nasal Cannula 2.0 28 04/26/18 23:12 93 24 92 Nasal Cannula 2.0 28 04/26/18 21:00 Nasal Cannula 2.0 04/26/18 20:00 97.5 95 26 136/90 (105) 93 04/26/18 19:00 Nasal Cannula 2.0 28 04/26/18 19:00 Nasal Cannula 2.0 28 04/26/18 19:00 95 Nasal Cannula 2.0 28 04/26/18 19:00 Nasal Cannula 2.0 28 Intake and Output 04/26/18 04/27/18 19:00 07:00 Intake Total 637.888 ml 509.6568 ml Balance 637.888 ml 509.6568 ml Intake Oral 600 ml IV Total 37.888 ml 509.6568 ml General Appearance: WD/WN Respiratory/Chest: crackles/rales Cardiovascular: normal rate, regular rhythm Abdomen: soft, non tender, no organomegaly Neurologic/Psychiatric: oriented x 3, responsive Laboratory Tests 04/26/18 19:01: Stool Occult Blood Positive 04/27/18 04:10: White Blood Count 5.2, Red Blood Count 2.65L, Hemoglobin 7.5L, Hematocrit 24.9L , Mean Corpuscular Volume 94, Mean Corpuscular Hemoglobin 28.3, Mean Corpuscular Hemoglobin Concent 30.1L, Red Cell Distribution Width 18.2H, Platelet Count 63L, Mean Platelet Volume 7.2, Neutrophils (%) (Auto) , Lymphocytes (%) (Auto) , Monocytes (%) (Auto) , Eosinophils (%) (Auto) , Basophils (%) (Auto) , Differential Total Cells Counted 100, Neutrophils % ( Manual) 76H, Lymphocytes % (Manual) 10L, Monocytes % (Manual) 12H, Eosinophils % (Manual) 2, Basophils % (Manual) 0, Band Neutrophils 0, Platelet Estimate DecreasedL, Platelet Morphology Normal, Hypochromasia 2+, Anisocytosis 2+, Prothrombin Time 11.6H, Prothromb Time International Ratio 1.1, Activated Partial Thromboplast Time 85H, Sodium Level 132L, Potassium Level 5.6H, Chloride Level 94L, Carbon Dioxide Level 24, Anion Gap 14, Blood Urea Nitrogen 74H, Creatinine 9.1H, Estimat Glomerular Filtration Rate 7.2, Glucose Level 103 , Calcium Level 9.3, Random Vancomycin Level 18.2 04/27/18 12:55: Arterial Blood pH 7.377, Arterial Blood Partial Pressure CO2 42.6, Arterial Blood Partial Pressure O2 105.0H, Arterial Blood HCO3 24.5, Arterial Blood Oxygen Saturation 97.6, Arterial Blood Base Excess -0.7, Yuval Test Positive Current Medications Medications (Trade) Dose Ordered Sig/Oliverio Route PRN Reason Start Time Stop Time Status Last Admin Dose Admin Acetaminophen (Tylenol) 650 mg Q6H PRN ORAL Mild Pain/Temp > 100.5 04/23/18 22:30 05/23/18 22:29 Acetaminophen/ Hydrocodone Bitart ([place] 10/325) 1 tab Q6H PRN ORAL For Pain 04/23/18 22:30 04/30/18 22:29 04/27/18 18:13 Albuterol/ Ipratropium (Albuterol/ Ipratropium) 3 ml Q6HRT HHN 04/24/18 15:15 04/29/18 15:14 04/27/18 12:21 Allopurinol (Zyloprim) 100 mg DAILY ORAL 04/24/18 09:00 05/24/18 08:59 04/27/18 08:33 Amlodipine Besylate (Norvasc) 5 mg DAILY ORAL 04/24/18 09:00 05/24/18 08:59 04/27/18 08:32 Calcium Carbonate (Tums) 500 mg TIDPRN PRN ORAL Nausea & Vomiting/Dyspepsia 04/26/18 14:00 05/26/18 13:59 Clonidine HCl (Catapres tab) 0.2 mg BID ORAL 04/23/18 22:30 05/23/18 22:29 04/27/18 17:27 Dextrose (Dextrose 50%) 25 ml Q30M PRN IV Hypoglycemia 04/23/18 23:00 05/23/18 22:59 Dextrose (Dextrose 50%) 50 ml Q30M PRN IV Hypoglycemia 04/23/18 23:00 2/7/19 22:59 Docusate Sodium (Colace) 100 mg TWICE A DAY ORAL 04/24/18 09:00 05/24/18 08:59 04/27/18 17:27 Epoetin Yung (Procrit (for ESRD on dialysis)) 7,000 units MON-WED-SUN SUBQ 04/29/18 21:00 05/29/18 20:59 Finasteride (Proscar) 5 mg DAILY ORAL 04/24/18 09:00 05/24/18 08:59 04/27/18 08:33 Gabapentin (Neurontin) 300 mg DAILY ORAL 04/24/18 09:00 05/24/18 08:59 04/27/18 08:33 Heparin Sodium (Porcine) (Heparin Sod 1000 units/ml 10ml) 500 unit ONCE PRN IV FOR HD USE ONLY 04/26/18 16:00 04/28/18 23:59 Heparin Sodium/ Dextrose 500 ml @ 37.888 mls/ hr ADJUST PER PROTOCOL IV 04/26/18 00:30 05/26/18 00:29 04/27/18 06:07 Insulin Aspart (NovoLOG) BEFORE MEALS AND HS SUBQ 04/24/18 06:30 05/24/18 06:29 04/27/18 11:40 Iron Sucrose 100 mg/Sodium Chloride 60 ml @ 240 mls/hr BEDTIME IV 04/27/18 21:00 05/01/18 21:14 Meropenem 500 mg/ Sodium Chloride 55 ml @ 110 mls/hr Q24H IVPB 04/23/18 21:00 05/02/18 20:59 04/26/18 20:39 Moxifloxacin HCl (Vigamox) 1 drop Q8HR BOTH EYES 04/27/18 14:00 05/04/18 13:59 Pantoprazole (Protonix) 40 mg DAILY IVP 04/24/18 09:00 05/24/18 08:59 04/27/18 08:33 Sodium Chloride 1,000 ml @ 500 mls/hr Q2H PRN IVLG sbp<90 during hd 04/26/18 15:27 04/28/18 23:59 Tamsulosin HCl (Flomax) 0.4 mg BEDTIME ORAL 04/23/18 23:45 05/23/18 23:44 04/26/18 20:38 Vancomycin HCl (Vanco rx to dose) 1 ea DAILY PRN MISC Per rx protocol 04/23/18 18:15 05/23/18 18:14 Vancomycin HCl 1 gm/Dextrose 275 ml @ 183.708 mls/hr ONCE IVPB 04/27/18 21:00 04/27/18 23:00 Vitamin B Complex/ Vit C/Folic Acid (Nephrovite) 1 tab DAILY ORAL 04/26/18 09:00 05/26/18 08:59 04/27/18 08:33 Warfarin Sodium (Coumadin per pharmacy) 1 ea DAILY PRN MISC RX TO DOSE 04/26/18 19:00 05/26/18 18:14 Warfarin Sodium (Coumadin) 5 mg ONCE ORAL 04/27/18 17:00 04/27/18 19:00 04/27/18 17:27 Steffi Escalante DO Apr 27, 2018 18:20
--- NOTE | 2018-04-27 18:58 | Diagnostic Imaging Report ---
EXAM: XR Chest, 1 View CLINICAL HISTORY: COUGH TECHNIQUE: Frontal view of the chest. COMPARISON: Chest radiography 04/23/18. FINDINGS: Lungs: Enlarged cardiac silhouette. Vascular congestion. Mixed interstitial/alveolar edema. Possible small pleural effusions which can be better visualized on a lateral view. No pneumothorax. Bilateral hilar fullness. Pleural space: See above. Heart: Unremarkable. No cardiomegaly. Mediastinum: Unremarkable. Bones/joints: Unremarkable. IMPRESSION: Findings are concerning for congestive heart failure exacerbation. 4. More dense airspace disease in the right lower lung could also represent pneumonia in the right clinical setting.
--- NOTE | 2018-04-27 19:09 | NUR ---
HAND-OFF: Report given to CLEVE Del Rosario.
--- NOTE | 2018-04-27 19:40 | NUR ---
HAND-OFF: Report given to CELVE Del Rosario.
[2018-04-27 19:54] VITALS: BP 152/94
--- NOTE | 2018-04-27 20:00 | NUR ---
NURSE NOTES: Patient received sitting up on the bed, on CPAP machine, breathing unlabored at rest. Dressing on left leg stained, will change dressing later. Reminded patient to elevate leg when sitting up. Verbalized understanding. On heparin drip. IV is intact and patent. Call light within reach. Will continue to monitor.
[2018-04-27] MEDS: Tamsulosin 0.4mg cap ORAL SCH (20:16)
[2018-04-27] MEDS: Meropenem 500mg/NS 55ml IVPB SCH ×2 (20:21)
[2018-04-27] MEDS ORDERED: Vancomycin 1gm/D5W 275ml IVPB SCH ×2 (21:00)
[2018-04-27] MEDS ORDERED: Iron Sucrose 100 MG in NS 55 ML IV SCH (21:00)
--- NOTE | 2018-04-27 21:45 | General Progress Note ---
Assessment/Plan Assessment/Plan cellulitis osteo myosisits renal failure on dialysis ho chf ho ermias thrombocytopenia dvt vq negative abx per ID podiatry fup wound care arterial study noted dw Dr Raygoza, vascular eval from Dr Oliveira apprecated DVT dw Dr Platt, Dr Leroy Raygoza, starting heparin ggt, monitor anemia and platelet closeley, heme evaluation appreicted patient with chronic low platelets from ho hepatitis per heme will hold off on ivc filter coumadin per pharmacy fe deficiny anemia, strte diron and epo GI eval dialysis dependent pulmonary fup cards fupecho noted monior platelets hgb dvt and ulcer prohylaxis Subjective Allergies: Coded Allergies: NO KNOWN DRUG ALLERGIES (Verified Allergy, Unknown, 03/06/18) Subjective above noted no sob no cough no chest painon heparin/ started on coumadin Objective Last 24 Hour Vital Signs Date Time Temp Pulse Resp B/P (MAP) Pulse Ox O2 Delivery O2 Flow Rate FiO2 04/27/18 20:45 101 20 100 Bi-pap 25 04/27/18 20:41 Bi-pap 04/27/18 20:40 103 21 100 Facial 25 04/27/18 20:38 Bi-pap 30 04/27/18 20:38 90 21 100 Bi-pap 30 04/27/18 20:37 100 Bi-pap 04/27/18 19:54 97.9 104 21 152/94 (113) 96 04/27/18 18:43 98.0 04/27/18 17:27 165/95 04/27/18 16:40 96 18 97 Facial 30 04/27/18 16:00 98.0 100 20 165/95 (118) 98 04/27/18 13:50 101 20 98 Facial 30 04/27/18 12:31 92 20 96 Nasal Cannula 2.0 28 04/27/18 12:21 91 22 96 Nasal Cannula 2.0 28 04/27/18 12:00 97.2 92 20 153/84 (107) 97 04/27/18 10:20 97 24 98 Facial 30 04/27/18 09:00 Nasal Cannula 2.0 04/27/18 08:32 141/90 04/27/18 08:32 91 141/90 04/27/18 08:04 91 20 96 Nasal Cannula 2.0 28 04/27/18 08:00 98.2 88 20 141/90 (107) 95 04/27/18 07:57 94 22 96 Nasal Cannula 2.0 28 04/27/18 07:57 96 Nasal Cannula 2.0 28 04/27/18 07:57 Nasal Cannula 2.0 28 04/27/18 04:00 98.3 106 26 159/99 (119) 96 04/27/18 01:01 Nasal Cannula 2.0 28 04/27/18 01:01 Nasal Cannula 2.0 28 04/27/18 00:00 98.3 102 24 155/84 (107) 92 04/26/18 23:21 95 20 99 Nasal Cannula 2.0 28 04/26/18 23:12 93 24 92 Nasal Cannula 2.0 28 Intake and Output 04/26/18 04/27/18 18:59 06:59 Intake Total 600 ml 509.6568 ml Balance 600 ml 509.6568 ml Intake Oral 600 ml IV Total 509.6568 ml Laboratory Tests 04/27/18 04:10: White Blood Count 5.2, Red Blood Count 2.65L, Hemoglobin 7.5L, Hematocrit 24.9L , Mean Corpuscular Volume 94, Mean Corpuscular Hemoglobin 28.3, Mean Corpuscular Hemoglobin Concent 30.1L, Red Cell Distribution Width 18.2H, Platelet Count 63L, Mean Platelet Volume 7.2, Neutrophils (%) (Auto) , Lymphocytes (%) (Auto) , Monocytes (%) (Auto) , Eosinophils (%) (Auto) , Basophils (%) (Auto) , Differential Total Cells Counted 100, Neutrophils % ( Manual) 76H, Lymphocytes % (Manual) 10L, Monocytes % (Manual) 12H, Eosinophils % (Manual) 2, Basophils % (Manual) 0, Band Neutrophils 0, Platelet Estimate DecreasedL, Platelet Morphology Normal, Hypochromasia 2+, Anisocytosis 2+, Prothrombin Time 11.6H, Prothromb Time International Ratio 1.1, Activated Partial Thromboplast Time 85H, Sodium Level 132L, Potassium Level 5.6H, Chloride Level 94L, Carbon Dioxide Level 24, Anion Gap 14, Blood Urea Nitrogen 74H, Creatinine 9.1H, Estimat Glomerular Filtration Rate 7.2, Glucose Level 103 , Calcium Level 9.3, Random Vancomycin Level 18.2 04/27/18 12:55: Arterial Blood pH 7.377, Arterial Blood Partial Pressure CO2 42.6, Arterial Blood Partial Pressure O2 105.0H, Arterial Blood HCO3 24.5, Arterial Blood Oxygen Saturation 97.6, Arterial Blood Base Excess -0.7, Yuval Test Positive Height (Feet): 5 Height (Inches): 7.00 Weight (Pounds): 232 General Appearance: WD/WN, no apparent distress Neck: supple Cardiovascular: normal rate Respiratory/Chest: lungs clear Abdomen: soft Objective left lower extremity dressing intact clean no bleeding Moe Sewell MD Apr 27, 2018 21:45
--- NOTE | 2018-04-27 22:00 | NUR ---
NURSE NOTES: Patient seen and examined by Dr. Krueger.
--- NOTE | 2018-04-27 22:09 | General Progress Note ---
Assessment/Plan Assessment/Plan Assessment - Heme (+) stools - Anemia - DVT - on anticoagulation - Hep B S Ag (+) - DM - PVD - CHU - PVD - Poor Px Recommendations - Patient not interested in any GI w/u for anemia, even ACBE (says health too poor for GI eval) - Would follow conservatively for now - patient to re-discuss his options with me after thinking it over - Monitor CBC while on anticoagulation - Replace Fe IV - PPI - if H&H declines on anticoagulation, may need to reconsider IVC filter - Check HBV quantitative PCR Thank you Bee Krueger MD Subjective Allergies: Coded Allergies: NO KNOWN DRUG ALLERGIES (Verified Allergy, Unknown, 03/06/18) Objective Last 24 Hour Vital Signs Date Time Temp Pulse Resp B/P (MAP) Pulse Ox O2 Delivery O2 Flow Rate FiO2 04/27/18 20:45 101 20 100 Bi-pap 25 04/27/18 20:41 Bi-pap 04/27/18 20:40 103 21 100 Facial 25 04/27/18 20:38 Bi-pap 30 04/27/18 20:38 90 21 100 Bi-pap 30 04/27/18 20:37 100 Bi-pap 04/27/18 19:54 97.9 104 21 152/94 (113) 96 04/27/18 18:43 98.0 04/27/18 17:27 165/95 04/27/18 16:40 96 18 97 Facial 30 04/27/18 16:00 98.0 100 20 165/95 (118) 98 04/27/18 13:50 101 20 98 Facial 30 04/27/18 12:31 92 20 96 Nasal Cannula 2.0 28 04/27/18 12:21 91 22 96 Nasal Cannula 2.0 28 04/27/18 12:00 97.2 92 20 153/84 (107) 97 04/27/18 10:20 97 24 98 Facial 30 04/27/18 09:00 Nasal Cannula 2.0 04/27/18 08:32 141/90 04/27/18 08:32 91 141/90 04/27/18 08:04 91 20 96 Nasal Cannula 2.0 28 04/27/18 08:00 98.2 88 20 141/90 (107) 95 04/27/18 07:57 94 22 96 Nasal Cannula 2.0 28 04/27/18 07:57 96 Nasal Cannula 2.0 28 04/27/18 07:57 Nasal Cannula 2.0 28 04/27/18 04:00 98.3 106 26 159/99 (119) 96 04/27/18 01:01 Nasal Cannula 2.0 28 04/27/18 01:01 Nasal Cannula 2.0 28 04/27/18 00:00 98.3 102 24 155/84 (107) 92 04/26/18 23:21 95 20 99 Nasal Cannula 2.0 28 04/26/18 23:12 93 24 92 Nasal Cannula 2.0 28 Intake and Output 04/26/18 04/27/18 18:59 06:59 Intake Total 600 ml 509.6568 ml Balance 600 ml 509.6568 ml Intake Oral 600 ml IV Total 509.6568 ml Laboratory Tests 04/27/18 04:10: White Blood Count 5.2, Red Blood Count 2.65L, Hemoglobin 7.5L, Hematocrit 24.9L , Mean Corpuscular Volume 94, Mean Corpuscular Hemoglobin 28.3, Mean Corpuscular Hemoglobin Concent 30.1L, Red Cell Distribution Width 18.2H, Platelet Count 63L, Mean Platelet Volume 7.2, Neutrophils (%) (Auto) , Lymphocytes (%) (Auto) , Monocytes (%) (Auto) , Eosinophils (%) (Auto) , Basophils (%) (Auto) , Differential Total Cells Counted 100, Neutrophils % ( Manual) 76H, Lymphocytes % (Manual) 10L, Monocytes % (Manual) 12H, Eosinophils % (Manual) 2, Basophils % (Manual) 0, Band Neutrophils 0, Platelet Estimate DecreasedL, Platelet Morphology Normal, Hypochromasia 2+, Anisocytosis 2+, Prothrombin Time 11.6H, Prothromb Time International Ratio 1.1, Activated Partial Thromboplast Time 85H, Sodium Level 132L, Potassium Level 5.6H, Chloride Level 94L, Carbon Dioxide Level 24, Anion Gap 14, Blood Urea Nitrogen 74H, Creatinine 9.1H, Estimat Glomerular Filtration Rate 7.2, Glucose Level 103 , Calcium Level 9.3, Random Vancomycin Level 18.2 04/27/18 12:55: Arterial Blood pH 7.377, Arterial Blood Partial Pressure CO2 42.6, Arterial Blood Partial Pressure O2 105.0H, Arterial Blood HCO3 24.5, Arterial Blood Oxygen Saturation 97.6, Arterial Blood Base Excess -0.7, Yuval Test Positive Height (Feet): 5 Height (Inches): 7.00 Weight (Pounds): 232 Bee Krueger MD Apr 27, 2018 22:09
[2018-04-28] VITALS (7 sets, daily range): BP systolic 148–170; BP diastolic 74–98
[2018-04-28] MEDS: Albuterol/Ipratropium 3ml neb HHN SCH ×4 (02:05→19:46)
--- NOTE | 2018-04-28 04:00 | Consultation ---
DATE OF CONSULTATION: 04/27/2018 GASTROENTEROLOGY CONSULTATION CONSULTING PHYSICIAN: Bee Krueger M.D. REFERRING PHYSICIAN: Moe Sewell M.D. CHIEF COMPLAINT: I was asked to see this patient by Dr. Moe Sewell for evaluation of heme-positive stools and anemia. HISTORY OF PRESENT ILLNESS: The patient is a pleasant unfortunate 67-year-old man, who is admitted to the hospital with multiple issues including shortness of breath, sleep apnea, and leg infection. He has diabetes with diabetic foot ulceration with peripheral vascular disease. He has cellulitis and bandages on his legs and is being treated with antibiotics. In addition, the patient has chronic obstructive sleep apnea and he has a BiPAP mask at home. The patient also has renal failure and receives dialysis. The patient has anemia and was found to be heme positive in the stools. The patient in addition to all above, has been found to have deep vein thrombosis, and has been placed on systemic anticoagulation. The significant findings of heme-positive stools in the setting of anemia and deep vein thrombosis on anticoagulation was discussed with the patient. An endoscopy and colonoscopy could be done, but he will have to be intubated due to his respiratory risk. Alternatively a contrast barium enema or possibly a CT colonography were explained to the patient. The patient seems frustrated and does not want to have any gastrointestinal workup. He feels he is approaching the end of his life and does not want to undergo any procedures. He was advised to think about it overnight and we will discuss tomorrow. PAST MEDICAL HISTORY: History of end-stage renal disease, status post multiple AV shunt placements, peripheral vascular disease, SVC syndrome, lower extremity cellulitis, diabetic foot status post amputation, deep vein thrombosis, anemia, COPD, sleep apnea, and history of smoking in the past. FAMILY HISTORY: Noncontributory. SOCIAL HISTORY: The patient has a history of noncompliance to smoking and marijuana daily. REVIEW OF SYSTEMS: Negative. PHYSICAL EXAMINATION: GENERAL: Debilitated man, who is seen in his room. He is in no distress. HEENT: Normocephalic and atraumatic. BiPAP mask was on. NECK: Supple. CHEST: Reveals scattered rhonchi. CARDIOVASCULAR: Revealed regular rate. ABDOMEN: Soft, obese. EXTREMITIES: Revealed bandages in lower extremity as well as amputation. NEUROLOGIC: Grossly nonfocal. LABORATORY DATA: Noted. ASSESSMENT: This patient has heme-positive stools and anemia, which is even more significant in the setting of anticoagulation. His CBC will also be watched closely. Should the anemia worsen more rapidly with anticoagulation, then IVC filter may be necessary in lieu of the anticoagulation. In addition, the patient was advised to rethink the gastrointestinal workup for his heme-positive stools. I discussed with his family members. In the meantime, he should be given proton pump inhibitor, and iron should be replaced intravenously. RECOMMENDATIONS: Per above discussion and per orders written in the chart. Thank you for asking me to participate in the care of this patient. Bee Krueger M.D. DR: SHAQ JOB#: [id number] CC: MARU
[2018-04-28 05:38] LABS: HEMOGLOBIN 7.6 G/DL (14.2-18.0); MEAN CORPUSCULAR VOLUME 93 FL (80-99); PLATELET COUNT 77 K/UL (150-450); RED BLOOD COUNT 2.67 M/UL (4.70-6.10); RED CELL DISTRIBUTION WIDTH 18.6 % (11.6-14.8)
[2018-04-28 05:46] LABS: INR 1.3 (0.9-1.1)
--- NOTE | 2018-04-28 05:57 | NUR ---
Pt currently not tolerating being off the CPAP machine. Pt is resting comfortably while wearing CPAP. No s/s respiratory distress noted. Pt refusing to wear tape for skin barrier protection even after explaining benefits. Alarms are set and audible.
[2018-04-28 06:12] LABS: ANION GAP 12 mmol/L (5-15); BLOOD UREA NITROGEN 65 mg/dL (7-18); CALCIUM 9.7 MG/DL (8.5-10.1); CARBON DIOXIDE 27 MMOL/L (21-32); CHLORIDE 95 MMOL/L (98-107); CREATININE 8.2 MG/DL (0.55-1.30); POTASSIUM 5.1 MMOL/L (3.5-5.1); SODIUM 134 MMOL/L (136-145)
[2018-04-28] MEDS: NovoLOG Insulin Flexpen SUBQ SCH ×4 (06:30→23:34)
[2018-04-28] MEDS: Vigamox Opth Soln 3ml BOTH EYES SCH ×3 (06:38→22:00)
--- NOTE | 2018-04-28 07:29 | NUR ---
HAND-OFF: Report given to Christine POON.
--- NOTE | 2018-04-28 08:15 | NUR ---
NURSE NOTES: Received patient alert, awake, verbally responsive. Receiving breathing treatment at this time. noted with dry dressing on left foot wound, Heparin drip ongoing at 18u/hr. All needs attended. Call light made within reach. will cont to monitor.
[2018-04-28] MEDS: Nephrovite tab (Rena-Vite) ORAL SCH (08:38)
[2018-04-28] MEDS: Pantoprazole Inj IVP SCH (08:38)
[2018-04-28] MEDS: Docusate 100mg cap ORAL SCH ×2 (08:39→17:36)
[2018-04-28] MEDS: cloNIDine 0.2mg Tab ORAL SCH ×2 (08:39→17:36)
[2018-04-28] MEDS: Allopurinol 100mg Tab ORAL SCH (08:39)
[2018-04-28] MEDS: HYDROcodone/Acetamin 10/325 tab ORAL PRN ×2 (08:47→23:34)
--- NOTE | 2018-04-28 10:02 | NUR ---
NURSE NOTES: patient complained of SOB. assessed by RT. ABGs done. Dr. Sewell seen patient with order to transfer patient to Tele and call Dr. Platt. noted and carried out. Left message with Dr. Platt . Awaiting response.
--- NOTE | 2018-04-28 11:50 | NUR ---
NURSE NOTES: patient arrived at 11:50 am Received report from Christine POON for patient transfer. patient is AAO x4 and verbally responsive. Patient is on 4L NC at 95% . To note dry dressing on left foot wound, Heparin drip ongoing at 18u/hr. Bed is in lowest position with 3 side rails up. Call light made within reach. Will cont to monitor.
--- NOTE | 2018-04-28 13:22 | Cardiac Electrophysiology PN ---
Assessment/Plan Status Narrative Normal left ventricular chamber size, systolic function and wall motion. Left ventricular ejection fraction estimated to be 60-65 %. Moderate left ventricular hypertrophy by 2-D. Small posterior pericardial effusion. Moderate left atrial enlargement. Mild right atrial enlargement. Right ventricular chamber size is within normal limits. Moderate aortic valve calcification with decreased cusp excursion c/w aortic stenosis. Moderately thickened mitral valve leaflets with normal excursion. Mitral annulus and aortic root calcification. Pulmonic valve not well visualized. Normal tricuspid valve structure. IVC dilated at 2.4 cm with slight physiologic collapse suggestive of in Assessment/Plan 1. Congestive heart failure. BNP of more than 35,000 on hemodialysis. EF 65% 2. Troponin elevation. Troponin of 0.057. It could be due to renal failure. The patient does not have any chest pain. Echocardiogram EF 65%. 3. Hypertension. On hemodialysis, Norvasc 5 mg daily and clonidine 0.2 mg b.i.d. 4. Lower extremity cellulitis, on meropenem and vancomycin. 5. Morbid obesity. 6. Peripheral vascular disease. 7. Respiratory failure. LATIA RN Subjective Subjective Transferred from [facility] for respiratory failure. Was on BIPAP yesterday on 4 [facility] now. Objective Last 24 Hour Vital Signs Date Time Temp Pulse Resp B/P (MAP) Pulse Ox O2 Delivery O2 Flow Rate FiO2 04/28/18 13:03 97 20 99 Nasal Cannula 2.0 28 04/28/18 12:56 97 20 97 Nasal Cannula 2.0 28 04/28/18 10:09 97.8 107 22 150/74 (99) 94 04/28/18 09:00 Bi-pap 04/28/18 08:39 180/78 04/28/18 08:39 80 180/78 04/28/18 08:00 97.8 110 22 170/76 (107) 94 04/28/18 07:57 94 20 99 Nasal Cannula 2.0 28 04/28/18 07:49 Nasal Cannula 2.0 28 04/28/18 07:49 94 20 96 Nasal Cannula 2.0 28 04/28/18 07:49 96 Nasal Cannula 2.0 28 04/28/18 05:56 101 22 100 Facial 30 04/28/18 05:00 97.6 107 22 157/98 (117) 94 04/28/18 04:12 101 22 100 Facial 30 04/28/18 02:16 107 20 100 Bi-pap 30 04/28/18 02:07 105 22 96 Bi-pap 30 04/28/18 02:07 99 21 100 Facial 30 04/28/18 00:00 97.5 109 25 160/88 (112) 97 04/27/18 22:32 99 21 100 Facial 25 04/27/18 20:45 101 20 100 Bi-pap 25 04/27/18 20:41 Bi-pap 04/27/18 20:40 103 21 100 Facial 25 04/27/18 20:38 Bi-pap 30 04/27/18 20:38 90 21 100 Bi-pap 30 04/27/18 20:37 100 Bi-pap 04/27/18 19:54 97.9 104 21 152/94 (113) 96 04/27/18 18:43 98.0 04/27/18 17:27 165/95 04/27/18 16:40 96 18 97 Facial 30 04/27/18 16:00 98.0 100 20 165/95 (118) 98 04/27/18 13:50 101 20 98 Facial 30 Intake and Output 04/27/18 04/28/18 19:00 07:00 Intake Total 1840.992 ml 1344.656 ml Output Total 800 ml Balance 1040.992 ml 1344.656 ml Intake Oral 1500 ml 500 ml IV Total 340.992 ml 844.656 ml Output Urine Total 800 ml # Voids 1 Laboratory Tests Test 04/28/18 04:20 04/28/18 04:45 White Blood Count 6.0 K/UL (4.8-10.8) Red Blood Count 2.67 M/UL (4.70-6.10) L Hemoglobin 7.6 G/DL (14.2-18.0) L Hematocrit 25.0 % (42.0-52.0) L Mean Corpuscular Volume 93 FL (80-99) Mean Corpuscular Hemoglobin 28.4 PG (27.0-31.0) Mean Corpuscular Hemoglobin Concent 30.5 G/DL (32.0-36.0) L Red Cell Distribution Width 18.6 % (11.6-14.8) H Platelet Count 77 K/UL (150-450) L Mean Platelet Volume 8.1 FL (6.5-10.1) Neutrophils (%) (Auto) % (45.0-75.0) Lymphocytes (%) (Auto) % (20.0-45.0) Monocytes (%) (Auto) % (1.0-10.0) Eosinophils (%) (Auto) % (0.0-3.0) Basophils (%) (Auto) % (0.0-2.0) Differential Total Cells Counted 100 Neutrophils % (Manual) 91 % (45-75) H Lymphocytes % (Manual) 5 % (20-45) L Monocytes % (Manual) 4 % (1-10) Eosinophils % (Manual) 0 % (0-3) Basophils % (Manual) 0 % (0-2) Band Neutrophils 0 % (0-8) Platelet Estimate Decreased L Platelet Morphology Normal Hypochromasia 1+ Anisocytosis 1+ Prothrombin Time 13.8 SEC (9.30-11.50) H Prothromb Time International Ratio 1.3 (0.9-1.1) H Activated Partial Thromboplast Time 71 SEC (23-33) H Hepatitis B Surface Antibody Pending Sodium Level 134 MMOL/L (136-145) L Potassium Level 5.1 MMOL/L (3.5-5.1) Chloride Level 95 MMOL/L (98-107) L Carbon Dioxide Level 27 MMOL/L (21-32) Anion Gap 12 mmol/L (5-15) Blood Urea Nitrogen 65 mg/dL (7-18) H Creatinine 8.2 MG/DL (0.55-1.30) H Estimat Glomerular Filtration Rate 8.0 mL/min (>60) Glucose Level 124 MG/DL (74-106) H Calcium Level 9.7 MG/DL (8.5-10.1) Objective HEAD AND NECK: No JVD. LUNGS: Decreased breath sounds. CARDIOVASCULAR: Regular S1 and S2 with no gallop. ABDOMEN: Soft. EXTREMITIES: Status post multiple amputations, 2+ lower extremity edema. Shelton Perdomo MD Apr 28, 2018 13:22
--- NOTE | 2018-04-28 13:50 | Nephrology Progress Note ---
Assessment/Plan Problem List: (1) ESRD (end stage renal disease) (2) Diabetic infection of left foot (3) Acute DVT (deep venous thrombosis) Assessment: LLE (4) PVD (peripheral vascular disease) (5) Anemia Assessment: worse (6) Iron deficiency (7) Thrombocytopenia Assessment: stable Plan HD tomorrow with UF as tolerated continue Epogen +IV Iron abxs anticoagulation follow labs Discussed with Dr Soto Subjective Subjective feels better off BIPAP Objective Objective Last 24 Hour Vital Signs Date Time Temp Pulse Resp B/P (MAP) Pulse Ox O2 Delivery O2 Flow Rate FiO2 04/28/18 13:26 105 04/28/18 13:03 97 20 99 Nasal Cannula 2.0 28 04/28/18 12:56 97 20 97 Nasal Cannula 2.0 28 04/28/18 12:00 97.7 106 22 159/87 (111) 94 04/28/18 10:09 97.8 107 22 150/74 (99) 94 04/28/18 09:00 Bi-pap 04/28/18 08:39 180/78 04/28/18 08:39 80 180/78 04/28/18 08:00 97.8 110 22 170/76 (107) 94 04/28/18 07:57 94 20 99 Nasal Cannula 2.0 28 04/28/18 07:49 Nasal Cannula 2.0 28 04/28/18 07:49 94 20 96 Nasal Cannula 2.0 28 04/28/18 07:49 96 Nasal Cannula 2.0 28 04/28/18 05:56 101 22 100 Facial 30 04/28/18 05:00 97.6 107 22 157/98 (117) 94 04/28/18 04:12 101 22 100 Facial 30 04/28/18 02:16 107 20 100 Bi-pap 30 04/28/18 02:07 105 22 96 Bi-pap 30 04/28/18 02:07 99 21 100 Facial 30 04/28/18 00:00 97.5 109 25 160/88 (112) 97 04/27/18 22:32 99 21 100 Facial 25 04/27/18 20:45 101 20 100 Bi-pap 25 04/27/18 20:41 Bi-pap 04/27/18 20:40 103 21 100 Facial 25 04/27/18 20:38 Bi-pap 30 04/27/18 20:38 90 21 100 Bi-pap 30 04/27/18 20:37 100 Bi-pap 04/27/18 19:54 97.9 104 21 152/94 (113) 96 04/27/18 18:43 98.0 04/27/18 17:27 165/95 04/27/18 16:40 96 18 97 Facial 30 04/27/18 16:00 98.0 100 20 165/95 (118) 98 04/27/18 13:50 101 20 98 Facial 30 Intake and Output 04/27/18 04/28/18 19:00 07:00 Intake Total 1840.992 ml 1344.656 ml Output Total 800 ml Balance 1040.992 ml 1344.656 ml Intake Oral 1500 ml 500 ml IV Total 340.992 ml 844.656 ml Output Urine Total 800 ml # Voids 1 Laboratory Tests 04/28/18 04:20: White Blood Count 6.0, Red Blood Count 2.67L, Hemoglobin 7.6L, Hematocrit 25.0L , Mean Corpuscular Volume 93, Mean Corpuscular Hemoglobin 28.4, Mean Corpuscular Hemoglobin Concent 30.5L, Red Cell Distribution Width 18.6H, Platelet Count 77L, Mean Platelet Volume 8.1, Neutrophils (%) (Auto) , Lymphocytes (%) (Auto) , Monocytes (%) (Auto) , Eosinophils (%) (Auto) , Basophils (%) (Auto) , Differential Total Cells Counted 100, Neutrophils % ( Manual) 91H, Lymphocytes % (Manual) 5L, Monocytes % (Manual) 4, Eosinophils % ( Manual) 0, Basophils % (Manual) 0, Band Neutrophils 0, Platelet Estimate DecreasedL, Platelet Morphology Normal, Hypochromasia 1+, Anisocytosis 1+, Prothrombin Time 13.8H, Prothromb Time International Ratio 1.3H, Activated Partial Thromboplast Time 71H, Hepatitis B Surface Antibody [Pending] 04/28/18 04:45: Sodium Level 134L, Potassium Level 5.1, Chloride Level 95L, Carbon Dioxide Level 27, Anion Gap 12, Blood Urea Nitrogen 65H, Creatinine 8.2H, Estimat Glomerular Filtration Rate 8.0, Glucose Level 124H, Calcium Level 9.7 Height (Feet): 5 Height (Inches): 7.00 Weight (Pounds): 232 Cardiovascular: normal rate Respiratory/Chest: lungs clear Extremities: severe edema Johan Harper MD Apr 28, 2018 13:50
[2018-04-28] MEDS ORDERED: Heparin Sod 1000 units/ml 10ml IV PRN ×2 (13:59→14:05)
[2018-04-28] MEDS ORDERED: Tums 500mg ORAL PRN (14:00)
--- NOTE | 2018-04-28 14:15 | General Progress Note ---
Assessment/Plan Assessment/Plan # DVT of the deep veins superficial and politeal of the left leg, thrombocytopenia likely due to hep B chronic status --> VQ scan shows low probability of PE --> remains with anemia and low platelets therefore contraindication for anticoagulation --> will hold off on IVC filter --> started on coumadin inr goal 2-3 --> Cards and pulm recs appreciated as well as renal, vasc # Thrombocytopenia -- plt goal >20k, transfuse as required, hepatitis B chronic infection --> plt trend in the 66k-->63k-->58k-->60k (likely chronic) --> hep B noted and if no change in plt, consider anticoagulation --> coumadin started # Anemia of iron deficiency --> started on iron and epogen (AGREE WITH RENAL) --> anemia panel has been reviewed --> hgb goal >7, transfuse as needed --> peripheral smear to be reviewed # Acute CHF exacerbation/pulmonary edema --> as per pulm # COPD w/o obvious exacerbation # CHU # ESRD on HD --> hd as per renal # Hx multiple amputations # Diabetic foot infection --> as per ID # Hepatitis B ++ Ag # Acute CHF exacerbation/pulmonary edema # COPD w/o obvious exacerbation Time of note does not necessarily reflect time of encounter Greatly appreciate consultation! Subjective HEENT: Denies: no symptoms, eye pain, blurred vision, tearing, double vision, ear pain, ear discharge, nose pain, nose congestion, throat pain, throat swelling, mouth pain, mouth swelling, other Cardiovascular: Denies: no symptoms, chest pain, edema, irregular heart rate, lightheadedness, palpitations, syncope, other Respiratory: Denies: no symptoms, cough, orthopnea, shortness of breath, SOB with excertion, SOB at rest, sputum, stridor, wheezing, other Gastrointestinal/Abdominal: Denies: no symptoms, abdomen distended, abdominal pain, black stools, tarry stools, blood in stool, constipated, diarrhea, difficulty swallowing, nausea, poor appetite, poor fluid intake, rectal bleeding , vomiting, other Genitourinary: Denies: no symptoms, burning, discharge, frequency, flank pain, hematuria, incontinence, pain, urgency, other Neurologic/Psychiatric: Denies: no symptoms, anxiety, depressed, emotional problems, headache, numbness, paresthesia, pre-existing deficit, seizure, tingling, tremors, weakness, other Endocrine: Denies: no symptoms, excessive sweating, flushing, intolerance to cold, intolerance to heat, increased hunger, increased thirst, increased urine, unexplained weight gain, unexplained weight loss, other Hematologic/Lymphatic: Denies: no symptoms, anemia, easy bleeding, easy bruising, other Allergies: Coded Allergies: NO KNOWN DRUG ALLERGIES (Verified Allergy, Unknown, 03/06/18) Subjective 04/26: no events, potential plan for ivc f on sunday.12: no further ivc filter planned, started on coumadin inr goal 2-3 04/28: on iron and epogen dw Dr. Harper, continue as per his recs Objective Last 24 Hour Vital Signs Date Time Temp Pulse Resp B/P (MAP) Pulse Ox O2 Delivery O2 Flow Rate FiO2 04/28/18 13:26 105 04/28/18 13:03 97 20 99 Nasal Cannula 2.0 28 04/28/18 12:56 97 20 97 Nasal Cannula 2.0 28 04/28/18 12:00 97.7 106 22 159/87 (111) 94 04/28/18 10:09 97.8 107 22 150/74 (99) 94 04/28/18 09:00 Bi-pap 04/28/18 08:39 180/78 04/28/18 08:39 80 180/78 04/28/18 08:00 97.8 110 22 170/76 (107) 94 04/28/18 07:57 94 20 99 Nasal Cannula 2.0 28 04/28/18 07:49 Nasal Cannula 2.0 28 04/28/18 07:49 94 20 96 Nasal Cannula 2.0 28 04/28/18 07:49 96 Nasal Cannula 2.0 28 04/28/18 05:56 101 22 100 Facial 30 04/28/18 05:00 97.6 107 22 157/98 (117) 94 04/28/18 04:12 101 22 100 Facial 30 04/28/18 02:16 107 20 100 Bi-pap 30 04/28/18 02:07 105 22 96 Bi-pap 30 04/28/18 02:07 99 21 100 Facial 30 04/28/18 00:00 97.5 109 25 160/88 (112) 97 04/27/18 22:32 99 21 100 Facial 25 04/27/18 20:45 101 20 100 Bi-pap 25 04/27/18 20:41 Bi-pap 04/27/18 20:40 103 21 100 Facial 25 04/27/18 20:38 Bi-pap 30 04/27/18 20:38 90 21 100 Bi-pap 30 04/27/18 20:37 100 Bi-pap 04/27/18 19:54 97.9 104 21 152/94 (113) 96 04/27/18 18:43 98.0 04/27/18 17:27 165/95 04/27/18 16:40 96 18 97 Facial 30 04/27/18 16:00 98.0 100 20 165/95 (118) 98 Intake and Output 04/27/18 04/28/18 19:00 07:00 Intake Total 1840.992 ml 1344.656 ml Output Total 800 ml Balance 1040.992 ml 1344.656 ml Intake Oral 1500 ml 500 ml IV Total 340.992 ml 844.656 ml Output Urine Total 800 ml # Voids 1 Laboratory Tests 04/28/18 04:20: White Blood Count 6.0, Red Blood Count 2.67L, Hemoglobin 7.6L, Hematocrit 25.0L , Mean Corpuscular Volume 93, Mean Corpuscular Hemoglobin 28.4, Mean Corpuscular Hemoglobin Concent 30.5L, Red Cell Distribution Width 18.6H, Platelet Count 77L, Mean Platelet Volume 8.1, Neutrophils (%) (Auto) , Lymphocytes (%) (Auto) , Monocytes (%) (Auto) , Eosinophils (%) (Auto) , Basophils (%) (Auto) , Differential Total Cells Counted 100, Neutrophils % ( Manual) 91H, Lymphocytes % (Manual) 5L, Monocytes % (Manual) 4, Eosinophils % ( Manual) 0, Basophils % (Manual) 0, Band Neutrophils 0, Platelet Estimate DecreasedL, Platelet Morphology Normal, Hypochromasia 1+, Anisocytosis 1+, Prothrombin Time 13.8H, Prothromb Time International Ratio 1.3H, Activated Partial Thromboplast Time 71H, Hepatitis B Surface Antibody [Pending] 04/28/18 04:45: Sodium Level 134L, Potassium Level 5.1, Chloride Level 95L, Carbon Dioxide Level 27, Anion Gap 12, Blood Urea Nitrogen 65H, Creatinine 8.2H, Estimat Glomerular Filtration Rate 8.0, Glucose Level 124H, Calcium Level 9.7 Height (Feet): 5 Height (Inches): 7.00 Weight (Pounds): 232 Objective HEAD AND NECK: No JVD. LUNGS: Decreased breath sounds. CARDIOVASCULAR: Regular S1 and S2 with no gallop. ABDOMEN: Soft. EXTREMITIES: Status post multiple amputations, 2+ lower extremity edema. Juve Soto MD Apr 28, 2018 14:15
[2018-04-28] MEDS: Heparin 25,000u/D5W 500ml 500 ML IV SCH (14:38)
--- NOTE | 2018-04-28 15:28 | Pulmonology Progress Note ---
Assessment/Plan Assessment/Plan 1. Diabetic foot infection 2. Acute CHF exacerbation/pulmonary edema 3. COPD w/o obvious exacerbation 4. CHU 5. ESRD on HD 6. Hx multiple amputations 7. Thrombocytopenia 8. Anemia 9. L leg DVT Plan: Abx per ID f/u cultures Podiatric wound care/debridement as needed Monitor volumes, cont volume removed with HD Duonebs q6 Cont CPAP 10 cm H2O qhs and prn distress, wean off during the day if tolerated Heme f/u May need IVC filter, awaiting vascular eval for legs as well-still pending Subjective Constitutional: Reports: no symptoms HEENT: Repors: no symptoms Cardiovascular: Reports: no symptoms Gastrointestinal/Abdominal: Reports: no symptoms Genitourinary: Reports: no symptoms Allergies: Coded Allergies: NO KNOWN DRUG ALLERGIES (Verified Allergy, Unknown, 03/06/18) Subjective on cpap which he is requiring 24 hours but cant take off for meals HD yesterday and tolerated well no cp nv or bleeding noted no fever minimally oob Objective Last 24 Hour Vital Signs Date Time Temp Pulse Resp B/P (MAP) Pulse Ox O2 Delivery O2 Flow Rate FiO2 04/28/18 13:26 105 04/28/18 13:03 97 20 99 Nasal Cannula 2.0 28 04/28/18 12:56 97 20 97 Nasal Cannula 2.0 28 04/28/18 12:00 97.7 106 22 159/87 (111) 94 04/28/18 10:09 97.8 107 22 150/74 (99) 94 04/28/18 09:00 Bi-pap 04/28/18 08:39 180/78 04/28/18 08:39 80 180/78 04/28/18 08:00 97.8 110 22 170/76 (107) 94 04/28/18 07:57 94 20 99 Nasal Cannula 2.0 28 04/28/18 07:49 Nasal Cannula 2.0 28 04/28/18 07:49 94 20 96 Nasal Cannula 2.0 28 04/28/18 07:49 96 Nasal Cannula 2.0 28 04/28/18 05:56 101 22 100 Facial 30 04/28/18 05:00 97.6 107 22 157/98 (117) 94 04/28/18 04:12 101 22 100 Facial 30 04/28/18 02:16 107 20 100 Bi-pap 30 04/28/18 02:07 105 22 96 Bi-pap 30 04/28/18 02:07 99 21 100 Facial 30 04/28/18 00:00 97.5 109 25 160/88 (112) 97 04/27/18 22:32 99 21 100 Facial 25 04/27/18 20:45 101 20 100 Bi-pap 25 04/27/18 20:41 Bi-pap 04/27/18 20:40 103 21 100 Facial 25 04/27/18 20:38 Bi-pap 30 04/27/18 20:38 90 21 100 Bi-pap 30 04/27/18 20:37 100 Bi-pap 04/27/18 19:54 97.9 104 21 152/94 (113) 96 04/27/18 18:43 98.0 04/27/18 17:27 165/95 04/27/18 16:40 96 18 97 Facial 30 04/27/18 16:00 98.0 100 20 165/95 (118) 98 Intake and Output 04/27/18 04/28/18 19:00 07:00 Intake Total 1840.992 ml 1344.656 ml Output Total 800 ml Balance 1040.992 ml 1344.656 ml Intake Oral 1500 ml 500 ml IV Total 340.992 ml 844.656 ml Output Urine Total 800 ml # Voids 1 General Appearance: WD/WN Respiratory/Chest: crackles/rales, rhonchi Cardiovascular: regular rhythm, murmur systolic Abdomen: non distended Neurologic/Psychiatric: no motor/sensory deficits, oriented x 3, responsive Laboratory Tests 04/28/18 04:20: White Blood Count 6.0, Red Blood Count 2.67L, Hemoglobin 7.6L, Hematocrit 25.0L , Mean Corpuscular Volume 93, Mean Corpuscular Hemoglobin 28.4, Mean Corpuscular Hemoglobin Concent 30.5L, Red Cell Distribution Width 18.6H, Platelet Count 77L, Mean Platelet Volume 8.1, Neutrophils (%) (Auto) , Lymphocytes (%) (Auto) , Monocytes (%) (Auto) , Eosinophils (%) (Auto) , Basophils (%) (Auto) , Differential Total Cells Counted 100, Neutrophils % ( Manual) 91H, Lymphocytes % (Manual) 5L, Monocytes % (Manual) 4, Eosinophils % ( Manual) 0, Basophils % (Manual) 0, Band Neutrophils 0, Platelet Estimate DecreasedL, Platelet Morphology Normal, Hypochromasia 1+, Anisocytosis 1+, Prothrombin Time 13.8H, Prothromb Time International Ratio 1.3H, Activated Partial Thromboplast Time 71H, Hepatitis B Surface Antibody [Pending] 04/28/18 04:45: Sodium Level 134L, Potassium Level 5.1, Chloride Level 95L, Carbon Dioxide Level 27, Anion Gap 12, Blood Urea Nitrogen 65H, Creatinine 8.2H, Estimat Glomerular Filtration Rate 8.0, Glucose Level 124H, Calcium Level 9.7 Current Medications Medications (Trade) Dose Ordered Sig/Oliverio Route PRN Reason Start Time Stop Time Status Last Admin Dose Admin Acetaminophen (Tylenol) 650 mg Q6H PRN ORAL Mild Pain/Temp > 100.5 04/28/18 13:57 05/23/18 13:56 Acetaminophen/ Hydrocodone Bitart ([place] 10/325) 1 tab Q6H PRN ORAL For Pain 04/28/18 16:30 04/30/18 22:29 Albuterol/ Ipratropium (Albuterol/ Ipratropium) 3 ml Q6HRT HHN 04/28/18 19:00 04/29/18 15:14 Allopurinol (Zyloprim) 100 mg DAILY ORAL 04/29/18 09:00 05/24/18 08:59 Amlodipine Besylate (Norvasc) 5 mg DAILY ORAL 04/29/18 09:00 05/24/18 08:59 Calcium Carbonate (Tums) 500 mg TIDPRN PRN ORAL Nausea & Vomiting/Dyspepsia 04/28/18 14:00 05/26/18 13:59 Clonidine HCl (Catapres tab) 0.2 mg BID ORAL 04/28/18 18:00 05/23/18 22:29 Dextrose (Dextrose 50%) 25 ml Q30M PRN IV Hypoglycemia 04/28/18 14:00 05/23/18 22:59 Dextrose (Dextrose 50%) 50 ml Q30M PRN IV Hypoglycemia 04/28/18 14:00 05/23/18 22:59 Docusate Sodium (Colace) 100 mg TWICE A DAY ORAL 04/28/18 18:00 05/24/18 08:59 Epoetin Yung (Procrit (for ESRD on dialysis)) 7,000 units SUN-SUN-SUN SUBQ 04/29/18 21:00 05/29/18 20:59 Finasteride (Proscar) 5 mg DAILY ORAL 04/29/18 09:00 05/24/18 08:59 Gabapentin (Neurontin) 300 mg DAILY ORAL 04/29/18 09:00 05/24/18 08:59 Heparin Sodium (Porcine) (Heparin Sod 1000 units/ml 10ml) 500 unit ONCE PRN IV DIALYSIS 04/28/18 13:59 04/29/18 23:59 Heparin Sodium (Porcine) (Heparin Sod 1000 units/ml 10ml) 2,000 unit ONCE PRN IV DIALYSIS 04/28/18 14:05 04/29/18 23:59 Heparin Sodium/ Dextrose 500 ml @ 37.888 mls/ hr ADJUST PER PROTOCOL IV 04/28/18 13:57 05/28/18 13:56 04/28/18 14:38 Insulin Aspart (NovoLOG) BEFORE MEALS AND HS SUBQ 04/28/18 16:30 05/24/18 06:29 Iron Sucrose 100 mg/Sodium Chloride 60 ml @ 240 mls/hr BEDTIME IV 04/28/18 21:00 05/01/18 21:14 Meropenem 500 mg/ Sodium Chloride 55 ml @ 110 mls/hr Q24H IVPB 04/28/18 21:00 05/02/18 20:59 Moxifloxacin HCl (Vigamox) 1 drop Q8HR BOTH EYES 04/28/18 14:00 05/04/18 13:59 Pantoprazole (Protonix) 40 mg DAILY IVP 04/29/18 09:00 05/24/18 08:59 Sodium Chloride 1,000 ml @ 500 mls/hr Q2H PRN IVLG sbp<90 during hd 04/28/18 13:57 04/29/18 23:59 Sodium Chloride 1,000 ml @ 500 mls/hr Q2H PRN IVLG sbp<90 during hd 04/28/18 14:05 04/29/18 23:59 Tamsulosin HCl (Flomax) 0.4 mg BEDTIME ORAL 04/28/18 21:00 05/23/18 23:44 Vancomycin HCl (Vanco rx to dose) 1 ea DAILY PRN MISC Per rx protocol 04/29/18 09:00 05/23/18 18:14 Vitamin B Complex/ Vit C/Folic Acid (Nephrovite) 1 tab DAILY ORAL 04/29/18 09:00 05/26/18 08:59 Warfarin Sodium (Coumadin per pharmacy) 1 ea DAILY PRN MISC RX TO DOSE 04/29/18 09:00 05/26/18 18:14 Warfarin Sodium (Coumadin) 5 mg ONCE ORAL 04/28/18 17:00 04/28/18 19:00 Steffi Escalante DO Apr 28, 2018 15:28
[2018-04-28] MEDS ORDERED: Warfarin Sodium 5mg ORAL SCH ×2 (17:00)
--- NOTE | 2018-04-28 18:03 | Infectious Diseases Prog Note ---
Assessment/Plan Problems: (1) Acute osteomyelitis of metatarsal bone of left foot Assessment & Plan: left stump wound is growing MRSA and gram negative rods , continue meropenem and vancomycin treatment for now pending final cultures of the stump wound for osteomyelitis of the left foot metatarsal bone . continue local wound care and dressings change as per adjutant general. vascular recommended no revascularization at this point. will treat with iv antibiotics for 6 weeks for his left metatarsal osteomyelitis (2) Achilles tendon infection Assessment & Plan: with open wound, already on wide spectrum antibiotics coverage , continue local wound care and dressings change , podiatry is following (3) Diabetic foot infection Assessment & Plan: continue wide spectrum antibiotics , with tight glycemic control. (4) ESRD (end stage renal disease) Assessment & Plan: on HD , renal is following (5) PVD (peripheral vascular disease) Assessment & Plan: recommend vascular eval for possible angioplasty of the left leg (6) Hepatitis B surface antigen positive Assessment & Plan: rule out active HBV infection, await viral load to confirm (7) Acute dyspnea Assessment & Plan: rule out fluids over load , will order ABG, and CXR , continue BIPAP, pulmonary is following (8) Acute bacterial conjunctivitis Assessment & Plan: will start moxifloxacin eye drops for 5 days Subjective Constitutional: Reports: no symptoms HEENT: Reports: no symptoms Respiratory: Reports: dry cough Breasts: Reports: no symptoms Cardiovascular: Reports: no symptoms Gastrointestinal/Abdominal: Reports: no symptoms Genitourinary: Reports: no symptoms Neurologic: Reports: no symptoms Psychiatric: Reports: no symptoms Skin: Reports: no symptoms Endocrine: Reports: no symptoms Hematologic: Reports: no symptoms Musculoskeletal: Reports: swelling Allergies: Coded Allergies: NO KNOWN DRUG ALLERGIES (Verified Allergy, Unknown, 03/06/18) Subjective he was short of breath this am after he was off CPAP , so he was started on BIPAP , with improvement of his SOB, now feels better with less pain and swelling in his left foot Objective Vital Signs Last 24 Hour Vital Signs Date Time Temp Pulse Resp B/P (MAP) Pulse Ox O2 Delivery O2 Flow Rate FiO2 04/28/18 17:36 148/87 04/28/18 15:05 99 22 100 Facial 30 04/28/18 13:26 105 04/28/18 13:03 97 20 99 Nasal Cannula 2.0 28 04/28/18 12:56 97 20 97 Nasal Cannula 2.0 28 04/28/18 12:00 97.7 106 22 159/87 (111) 94 04/28/18 10:09 97.8 107 22 150/74 (99) 94 04/28/18 09:00 Bi-pap 04/28/18 08:39 180/78 04/28/18 08:39 80 180/78 04/28/18 08:00 97.8 110 22 170/76 (107) 94 04/28/18 07:57 94 20 99 Nasal Cannula 2.0 28 04/28/18 07:49 Nasal Cannula 2.0 28 04/28/18 07:49 94 20 96 Nasal Cannula 2.0 28 04/28/18 07:49 96 Nasal Cannula 2.0 28 04/28/18 05:56 101 22 100 Facial 30 04/28/18 05:00 97.6 107 22 157/98 (117) 94 04/28/18 04:12 101 22 100 Facial 30 04/28/18 02:16 107 20 100 Bi-pap 30 04/28/18 02:07 105 22 96 Bi-pap 30 04/28/18 02:07 99 21 100 Facial 30 04/28/18 00:00 97.5 109 25 160/88 (112) 97 04/27/18 22:32 99 21 100 Facial 25 04/27/18 20:45 101 20 100 Bi-pap 25 04/27/18 20:41 Bi-pap 04/27/18 20:40 103 21 100 Facial 25 04/27/18 20:38 Bi-pap 30 04/27/18 20:38 90 21 100 Bi-pap 30 04/27/18 20:37 100 Bi-pap 04/27/18 19:54 97.9 104 21 152/94 (113) 96 04/27/18 18:43 98.0 Height (Feet): 5 Height (Inches): 7.00 Weight (Pounds): 232 General Appearance: WD/WN, no acute distress HEENT: normocephalic, atraumatic, anicteric, mucous membranes moist, PERRL, EOMI, pharynx normal, supple, no JVD Respiratory/Chest: chest wall non-tender, lungs clear, no respiratory distress , no accessory muscle use, decreased breath sounds Cardiovascular: normal peripheral pulses, normal rate, regular rhythm, no gallop/murmur, no JVD Abdomen: normal bowel sounds, soft, non tender, no organomegaly, non distended , no mass, no scars Genitourinary: normal external genitalia Extremities: no cyanosis, no clubbing, other - left metatarsal amputation with open wound well granulated, left achillis open wound Skin: no rash, no lesions, ulcers Neurologic/Psychiatric: alert, oriented x 3, responsive, normal mood/affect Laboratory Tests Test 04/28/18 04:20 04/28/18 04:45 White Blood Count 6.0 K/UL (4.8-10.8) Red Blood Count 2.67 M/UL (4.70-6.10) L Hemoglobin 7.6 G/DL (14.2-18.0) L Hematocrit 25.0 % (42.0-52.0) L Mean Corpuscular Volume 93 FL (80-99) Mean Corpuscular Hemoglobin 28.4 PG (27.0-31.0) Mean Corpuscular Hemoglobin Concent 30.5 G/DL (32.0-36.0) L Red Cell Distribution Width 18.6 % (11.6-14.8) H Platelet Count 77 K/UL (150-450) L Mean Platelet Volume 8.1 FL (6.5-10.1) Neutrophils (%) (Auto) % (45.0-75.0) Lymphocytes (%) (Auto) % (20.0-45.0) Monocytes (%) (Auto) % (1.0-10.0) Eosinophils (%) (Auto) % (0.0-3.0) Basophils (%) (Auto) % (0.0-2.0) Differential Total Cells Counted 100 Neutrophils % (Manual) 91 % (45-75) H Lymphocytes % (Manual) 5 % (20-45) L Monocytes % (Manual) 4 % (1-10) Eosinophils % (Manual) 0 % (0-3) Basophils % (Manual) 0 % (0-2) Band Neutrophils 0 % (0-8) Platelet Estimate Decreased L Platelet Morphology Normal Hypochromasia 1+ Anisocytosis 1+ Prothrombin Time 13.8 SEC (9.30-11.50) H Prothromb Time International Ratio 1.3 (0.9-1.1) H Activated Partial Thromboplast Time 71 SEC (23-33) H Hepatitis B Surface Antibody Pending Sodium Level 134 MMOL/L (136-145) L Potassium Level 5.1 MMOL/L (3.5-5.1) Chloride Level 95 MMOL/L (98-107) L Carbon Dioxide Level 27 MMOL/L (21-32) Anion Gap 12 mmol/L (5-15) Blood Urea Nitrogen 65 mg/dL (7-18) H Creatinine 8.2 MG/DL (0.55-1.30) H Estimat Glomerular Filtration Rate 8.0 mL/min (>60) Glucose Level 124 MG/DL (74-106) H Calcium Level 9.7 MG/DL (8.5-10.1) Current Medications Medications (Trade) Dose Ordered Sig/Oliverio Route PRN Reason Start Time Stop Time Status Last Admin Dose Admin Acetaminophen (Tylenol) 650 mg Q6H PRN ORAL Mild Pain/Temp > 100.5 04/28/18 13:57 05/23/18 13:56 Acetaminophen/ Hydrocodone Bitart ([place] 10/325) 1 tab Q6H PRN ORAL For Pain 04/28/18 16:30 04/30/18 22:29 Albuterol/ Ipratropium (Albuterol/ Ipratropium) 3 ml Q6HRT HHN 04/28/18 19:00 04/29/18 15:14 Allopurinol (Zyloprim) 100 mg DAILY ORAL 04/29/18 09:00 05/24/18 08:59 Amlodipine Besylate (Norvasc) 5 mg DAILY ORAL 04/29/18 09:00 05/24/18 08:59 Calcium Carbonate (Tums) 500 mg TIDPRN PRN ORAL Nausea & Vomiting/Dyspepsia 04/28/18 14:00 05/26/18 13:59 Clonidine HCl (Catapres tab) 0.2 mg BID ORAL 04/28/18 18:00 05/23/18 22:29 04/28/18 17:36 Dextrose (Dextrose 50%) 25 ml Q30M PRN IV Hypoglycemia 04/28/18 14:00 05/23/18 22:59 Dextrose (Dextrose 50%) 50 ml Q30M PRN IV Hypoglycemia 04/28/18 14:00 05/23/18 22:59 Docusate Sodium (Colace) 100 mg TWICE A DAY ORAL 04/28/18 18:00 05/24/18 08:59 04/28/18 17:36 Epoetin Yung (Procrit (for ESRD on dialysis)) 7,000 units SUN-SUN-SUN SUBQ 04/29/18 21:00 05/29/18 20:59 Finasteride (Proscar) 5 mg DAILY ORAL 04/29/18 09:00 05/24/18 08:59 Gabapentin (Neurontin) 300 mg DAILY ORAL 04/29/18 09:00 05/24/18 08:59 Heparin Sodium (Porcine) (Heparin Sod 1000 units/ml 10ml) 500 unit ONCE PRN IV DIALYSIS 04/28/18 13:59 04/29/18 23:59 Heparin Sodium (Porcine) (Heparin Sod 1000 units/ml 10ml) 2,000 unit ONCE PRN IV DIALYSIS 04/28/18 14:05 04/29/18 23:59 Heparin Sodium/ Dextrose 500 ml @ 37.888 mls/ hr ADJUST PER PROTOCOL IV 04/28/18 13:57 05/28/18 13:56 04/28/18 14:38 Insulin Aspart (NovoLOG) BEFORE MEALS AND HS SUBQ 04/28/18 16:30 05/24/18 06:29 04/28/18 17:42 Iron Sucrose 100 mg/Sodium Chloride 60 ml @ 240 mls/hr BEDTIME IV 04/28/18 21:00 05/01/18 21:14 Meropenem 500 mg/ Sodium Chloride 55 ml @ 110 mls/hr Q24H IVPB 04/28/18 21:00 05/02/18 20:59 Moxifloxacin HCl (Vigamox) 1 drop Q8HR BOTH EYES 04/28/18 14:00 05/04/18 13:59 Pantoprazole (Protonix) 40 mg DAILY IVP 04/29/18 09:00 05/24/18 08:59 Sodium Chloride 1,000 ml @ 500 mls/hr Q2H PRN IVLG sbp<90 during hd 04/28/18 13:57 04/29/18 23:59 Sodium Chloride 1,000 ml @ 500 mls/hr Q2H PRN IVLG sbp<90 during hd 04/28/18 14:05 04/29/18 23:59 Tamsulosin HCl (Flomax) 0.4 mg BEDTIME ORAL 04/28/18 21:00 05/23/18 23:44 Vancomycin HCl (Vanco rx to dose) 1 ea DAILY PRN MISC Per rx protocol 04/29/18 09:00 05/23/18 18:14 Vitamin B Complex/ Vit C/Folic Acid (Nephrovite) 1 tab DAILY ORAL 04/29/18 09:00 05/26/18 08:59 Warfarin Sodium (Coumadin per pharmacy) 1 ea DAILY PRN MISC RX TO DOSE 04/29/18 09:00 05/26/18 18:14 Warfarin Sodium (Coumadin) 5 mg ONCE ORAL 04/28/18 17:00 04/28/18 19:00 04/28/18 17:36 Jaime Casey M.D. Apr 28, 2018 18:03
--- NOTE | 2018-04-28 18:08 | General Progress Note ---
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 hepatitis per heme will hold off on ivc filter coumadin per pharmacy fe deficiency anemia, started on iron and epo GI eval dialysis dependent pulmonary fup cards fup echo noted monior platelets hgb dvt and ulcer prohylaxis Subjective Allergies: Coded Allergies: NO KNOWN DRUG ALLERGIES (Verified Allergy, Unknown, 03/06/18) Subjective above noted some increased sob on cpap no cough no chest pain on heparin/ started on coumadin Objective Last 24 Hour Vital Signs Date Time Temp Pulse Resp B/P (MAP) Pulse Ox O2 Delivery O2 Flow Rate FiO2 04/28/18 17:36 148/87 04/28/18 15:05 99 22 100 Facial 30 04/28/18 13:26 105 04/28/18 13:03 97 20 99 Nasal Cannula 2.0 28 04/28/18 12:56 97 20 97 Nasal Cannula 2.0 28 04/28/18 12:00 97.7 106 22 159/87 (111) 94 04/28/18 10:09 97.8 107 22 150/74 (99) 94 04/28/18 09:00 Bi-pap 04/28/18 08:39 180/78 04/28/18 08:39 80 180/78 04/28/18 08:00 97.8 110 22 170/76 (107) 94 04/28/18 07:57 94 20 99 Nasal Cannula 2.0 28 04/28/18 07:49 Nasal Cannula 2.0 28 04/28/18 07:49 94 20 96 Nasal Cannula 2.0 28 04/28/18 07:49 96 Nasal Cannula 2.0 28 04/28/18 05:56 101 22 100 Facial 30 04/28/18 05:00 97.6 107 22 157/98 (117) 94 04/28/18 04:12 101 22 100 Facial 30 04/28/18 02:16 107 20 100 Bi-pap 30 04/28/18 02:07 105 22 96 Bi-pap 30 04/28/18 02:07 99 21 100 Facial 30 04/28/18 00:00 97.5 109 25 160/88 (112) 97 04/27/18 22:32 99 21 100 Facial 25 04/27/18 20:45 101 20 100 Bi-pap 25 04/27/18 20:41 Bi-pap 04/27/18 20:40 103 21 100 Facial 25 04/27/18 20:38 Bi-pap 30 04/27/18 20:38 90 21 100 Bi-pap 30 04/27/18 20:37 100 Bi-pap 04/27/18 19:54 97.9 104 21 152/94 (113) 96 04/27/18 18:43 98.0 Intake and Output 04/27/18 04/28/18 19:00 07:00 Intake Total 1840.992 ml 1344.656 ml Output Total 800 ml Balance 1040.992 ml 1344.656 ml Intake Oral 1500 ml 500 ml IV Total 340.992 ml 844.656 ml Output Urine Total 800 ml # Voids 1 Laboratory Tests 04/28/18 04:20: White Blood Count 6.0, Red Blood Count 2.67L, Hemoglobin 7.6L, Hematocrit 25.0L , Mean Corpuscular Volume 93, Mean Corpuscular Hemoglobin 28.4, Mean Corpuscular Hemoglobin Concent 30.5L, Red Cell Distribution Width 18.6H, Platelet Count 77L, Mean Platelet Volume 8.1, Neutrophils (%) (Auto) , Lymphocytes (%) (Auto) , Monocytes (%) (Auto) , Eosinophils (%) (Auto) , Basophils (%) (Auto) , Differential Total Cells Counted 100, Neutrophils % ( Manual) 91H, Lymphocytes % (Manual) 5L, Monocytes % (Manual) 4, Eosinophils % ( Manual) 0, Basophils % (Manual) 0, Band Neutrophils 0, Platelet Estimate DecreasedL, Platelet Morphology Normal, Hypochromasia 1+, Anisocytosis 1+, Prothrombin Time 13.8H, Prothromb Time International Ratio 1.3H, Activated Partial Thromboplast Time 71H, Hepatitis B Surface Antibody [Pending] 04/28/18 04:45: Sodium Level 134L, Potassium Level 5.1, Chloride Level 95L, Carbon Dioxide Level 27, Anion Gap 12, Blood Urea Nitrogen 65H, Creatinine 8.2H, Estimat Glomerular Filtration Rate 8.0, Glucose Level 124H, Calcium Level 9.7 Height (Feet): 5 Height (Inches): 7.00 Weight (Pounds): 232 General Appearance: WD/WN, no apparent distress Neck: supple Cardiovascular: normal rate Respiratory/Chest: lungs clear Abdomen: soft Objective left lower extremity dressing intact clean no bleeding Moe Sewell MD Apr 28, 2018 18:08
--- NOTE | 2018-04-28 19:57 | General Progress Note ---
Assessment/Plan Assessment/Plan Assessment - Heme (+) stools - Anemia - DVT - on anticoagulation - Hep B S Ag (+) - DM - PVD - CHU - PVD - Poor Px Recommendations - Patient declines GI w/u - Will follow conservatively - Monitor CBC while on anticoagulation - Replace Fe IV - PPI - if H&H declines on anticoagulation, may need to reconsider IVC filter - Check HBV quantitative PCR Subjective Allergies: Coded Allergies: NO KNOWN DRUG ALLERGIES (Verified Allergy, Unknown, 03/06/18) Subjective No new issues overnight on CPAP mask Objective Last 24 Hour Vital Signs Date Time Temp Pulse Resp B/P (MAP) Pulse Ox O2 Delivery O2 Flow Rate FiO2 04/28/18 19:49 Nasal Cannula 2.0 28 04/28/18 19:49 99 20 97 Nasal Cannula 2.0 28 04/28/18 19:48 97 Nasal Cannula 2.0 28 04/28/18 17:36 148/87 04/28/18 16:00 97.3 103 22 148/74 (98) 94 04/28/18 15:05 99 22 100 Facial 30 04/28/18 13:26 105 04/28/18 13:03 97 20 99 Nasal Cannula 2.0 28 04/28/18 12:56 97 20 97 Nasal Cannula 2.0 28 04/28/18 12:00 97.7 106 22 159/87 (111) 94 04/28/18 10:09 97.8 107 22 150/74 (99) 94 04/28/18 09:00 Bi-pap 04/28/18 08:39 180/78 04/28/18 08:39 80 180/78 04/28/18 08:00 97.8 110 22 170/76 (107) 94 04/28/18 07:57 94 20 99 Nasal Cannula 2.0 28 04/28/18 07:49 Nasal Cannula 2.0 28 04/28/18 07:49 94 20 96 Nasal Cannula 2.0 28 04/28/18 07:49 96 Nasal Cannula 2.0 28 04/28/18 05:56 101 22 100 Facial 30 04/28/18 05:00 97.6 107 22 157/98 (117) 94 04/28/18 04:12 101 22 100 Facial 30 04/28/18 02:16 107 20 100 Bi-pap 30 04/28/18 02:07 105 22 96 Bi-pap 30 04/28/18 02:07 99 21 100 Facial 30 04/28/18 00:00 97.5 109 25 160/88 (112) 97 04/27/18 22:32 99 21 100 Facial 25 04/27/18 20:45 101 20 100 Bi-pap 25 04/27/18 20:41 Bi-pap 04/27/18 20:40 103 21 100 Facial 25 04/27/18 20:38 Bi-pap 30 04/27/18 20:38 90 21 100 Bi-pap 30 04/27/18 20:37 100 Bi-pap 04/27/18 19:54 97.9 104 21 152/94 (113) 96 Intake and Output 04/27/18 04/28/18 19:00 07:00 Intake Total 1840.992 ml 1344.656 ml Output Total 800 ml Balance 1040.992 ml 1344.656 ml Intake Oral 1500 ml 500 ml IV Total 340.992 ml 844.656 ml Output Urine Total 800 ml # Voids 1 Laboratory Tests 04/28/18 04:20: White Blood Count 6.0, Red Blood Count 2.67L, Hemoglobin 7.6L, Hematocrit 25.0L , Mean Corpuscular Volume 93, Mean Corpuscular Hemoglobin 28.4, Mean Corpuscular Hemoglobin Concent 30.5L, Red Cell Distribution Width 18.6H, Platelet Count 77L, Mean Platelet Volume 8.1, Neutrophils (%) (Auto) , Lymphocytes (%) (Auto) , Monocytes (%) (Auto) , Eosinophils (%) (Auto) , Basophils (%) (Auto) , Differential Total Cells Counted 100, Neutrophils % ( Manual) 91H, Lymphocytes % (Manual) 5L, Monocytes % (Manual) 4, Eosinophils % ( Manual) 0, Basophils % (Manual) 0, Band Neutrophils 0, Platelet Estimate DecreasedL, Platelet Morphology Normal, Hypochromasia 1+, Anisocytosis 1+, Prothrombin Time 13.8H, Prothromb Time International Ratio 1.3H, Activated Partial Thromboplast Time 71H, Hepatitis B Surface Antibody [Pending] 04/28/18 04:45: Sodium Level 134L, Potassium Level 5.1, Chloride Level 95L, Carbon Dioxide Level 27, Anion Gap 12, Blood Urea Nitrogen 65H, Creatinine 8.2H, Estimat Glomerular Filtration Rate 8.0, Glucose Level 124H, Calcium Level 9.7 Height (Feet): 5 Height (Inches): 7.00 Weight (Pounds): 232 Objective Obese AA man NCSYLVESTER jimenez BS, power RR obese abd nonfocal Bee Krueger MD Apr 28, 2018 19:57
--- NOTE | 2018-04-28 20:06 | NUR ---
HAND-OFF: Report given to CLEVE Rajput. Endorsed plan of care.
--- NOTE | 2018-04-28 20:07 | NUR ---
NURSE NOTES: Received pt from CLEVE Hernandez. Pt awake, alert, and talkative. Family at bedside. Bed in lowest position. Call light within reach. Will continue to monitor.
[2018-04-28] MEDS: Tamsulosin 0.4mg cap ORAL SCH (21:00)
[2018-04-28] MEDS: Meropenem 500 MG in NS 55 ML IVPB SCH (23:10)
[2018-04-28] MEDS: Iron Sucrose 100 MG in NS 55 ML IV SCH (23:10)
[2018-04-29] VITALS: BP 160/97
[2018-04-29] MEDS: Albuterol/Ipratropium 3ml neb HHN SCH ×5 (00:46→23:10)
[2018-04-29 04:00] VITALS: BP 143/80
--- NOTE | 2018-04-29 04:35 | NUR ---
NURSE NOTES: Called and left a message with Dr. Calvillo regarding pts heavy amount of phlegm in throat despite breathing tx and bipap. She suggested to increase the duoneb from q6 to q4. Will input orders and will continue to monitor.
[2018-04-29] MEDS: Vigamox Opth Soln 3ml BOTH EYES SCH ×3 (06:00→21:29)
[2018-04-29] MEDS ORDERED: Vancomycin 1gm/D5W 275ml IVPB SCH ×2 (06:00)
[2018-04-29] MEDS: NovoLOG Insulin Flexpen SUBQ SCH ×4 (06:57→21:00)
--- NOTE | 2018-04-29 07:23 | NUR ---
NURSE NOTES: Pt refused blood draw and requested dialysis nurse to do it. Will endorse
--- NOTE | 2018-04-29 07:59 | NUR ---
NURSE NOTES: Report received from CLEVE Rajput. Observed patient in bed. Awake and verbally responsive. Denies pain at this time. Receiving 4L of oxygen via N/C with no distress noted. IV site intact with Heparin drip running at prescribed rate. Bed in lowest position. Call light within reach. Will continue to monitor.
[2018-04-29 08:00] VITALS: BP 166/127
[2018-04-29] MEDS: cloNIDine 0.2mg Tab ORAL SCH ×2 (08:10→17:20)
[2018-04-29] MEDS: Nephrovite tab (Rena-Vite) ORAL SCH (08:27)
[2018-04-29] MEDS: Docusate 100mg cap ORAL SCH ×2 (08:28→17:20)
[2018-04-29] MEDS: Pantoprazole Inj IVP SCH (08:28)
[2018-04-29] MEDS: Allopurinol 100mg Tab ORAL SCH (08:28)
[2018-04-29] MEDS: HYDROcodone/Acetamin 10/325 tab ORAL PRN ×2 (08:32→21:21)
[2018-04-29] MEDS: Heparin 25,000u/D5W 500ml 500 ML IV SCH ×2 (08:52→23:31)
--- NOTE | 2018-04-29 09:27 | NUR ---
RESPIRATORY NOTE: Placed pt on CPAP 10, 40% FiO2 per pt requested. Pt complained of SOB, tachypneic RR 24bpm, tachycardia HR 109bpm. No redness or skin breakdown noted upon applying foam tape. Pt is tolerating well CPAP, stated " feeling better". CLEVE Vences made aware. Alarms are set and audible, Bipap is plugged into the red outlet, ambu bag is at bedside. Will continue to monitor pt closely.
[2018-04-29 11:53] VITALS: BP 178/95
--- NOTE | 2018-04-29 12:18 | Pulmonology Progress Note ---
Assessment/Plan Assessment/Plan Problem List: 1. Diabetic foot infection 2. Acute CHF exacerbation/pulmonary edema 3. COPD w/o obvious exacerbation 4. CHU 5. ESRD on HD 6. Hx multiple amputations 7. Thrombocytopenia 8. Anemia 9. L leg DVT Plan: Abx per ID f/u cultures Podiatric wound care/debridement as needed Monitor volumes, cont volume removed with HD Duonebs q6 Cont CPAP 10 cm H2O Heparin gtt for DVT, cautiously observe platelets Heme f/u Case d/w Dr. Harper Subjective Interval Events: Tolerating anticoagulation Constitutional: Reports: no symptoms HEENT: Repors: no symptoms Respiratory: Reports: shortness of breath Cardiovascular: Reports: no symptoms Gastrointestinal/Abdominal: Reports: no symptoms Allergies: Coded Allergies: NO KNOWN DRUG ALLERGIES (Verified Allergy, Unknown, 03/06/18) Subjective HD planned today Objective Last 24 Hour Vital Signs Date Time Temp Pulse Resp B/P (MAP) Pulse Ox O2 Delivery O2 Flow Rate FiO2 04/29/18 11:53 97.6 99 17 178/95 (122) 98 04/29/18 10:57 99 16 98 Bi-pap 40 04/29/18 10:43 101 28 98 Bi-pap 40 04/29/18 10:41 101 15 98 Facial 40 04/29/18 09:27 109 24 95 Facial 40 04/29/18 09:00 Nasal Cannula 4.0 04/29/18 08:11 112 166/127 04/29/18 08:10 166/127 04/29/18 08:00 98.0 112 22 166/127 (140) 95 04/29/18 08:00 110 04/29/18 07:32 107 26 94 Nasal Cannula 4.0 36 04/29/18 07:18 89 Nasal Cannula 4.0 36 04/29/18 07:18 Nasal Cannula 4.0 36 04/29/18 07:17 117 28 Nasal Cannula 4.0 36 04/29/18 07:17 117 28 89 Nasal Cannula 4.0 36 04/29/18 04:00 97.6 102 19 143/80 (101) 99 04/29/18 00:57 104 20 100 Nasal Cannula 2.0 28 04/29/18 00:46 103 20 99 Nasal Cannula 2.0 28 04/29/18 00:00 97.3 105 19 160/97 (118) 95 04/28/18 21:36 103 22 99 Facial 30 04/28/18 21:00 Bi-pap 04/28/18 20:04 104 22 97 Facial 30 04/28/18 20:00 97.3 106 19 156/93 (114) 96 04/28/18 19:58 103 20 98 Nasal Cannula 2.0 28 04/28/18 19:49 Nasal Cannula 2.0 28 04/28/18 19:49 99 20 97 Nasal Cannula 2.0 28 04/28/18 19:48 97 Nasal Cannula 2.0 28 04/28/18 17:36 148/87 04/28/18 16:00 97.3 103 22 148/74 (98) 94 04/28/18 15:05 99 22 100 Facial 30 04/28/18 13:26 105 04/28/18 13:03 97 20 99 Nasal Cannula 2.0 28 04/28/18 12:56 97 20 97 Nasal Cannula 2.0 28 Intake and Output 04/28/18 04/29/18 19:00 07:00 Intake Total 600 ml 360 ml Output Total 300 ml Balance 300 ml 360 ml Intake Oral 600 ml Other 360 ml Output Urine Total 300 ml General Appearance: WD/WN, no acute distress HEENT: normocephalic, atraumatic, anicteric Respiratory/Chest: crackles/rales Cardiovascular: normal rate, regular rhythm Abdomen: normal bowel sounds, soft, non tender Extremities: other - edema improved Laboratory Tests 04/28/18 22:40: Activated Partial Thromboplast Time 78H Current Medications Medications (Trade) Dose Ordered Sig/Oliverio Route PRN Reason Start Time Stop Time Status Last Admin Dose Admin Acetaminophen (Tylenol) 650 mg Q6H PRN ORAL Mild Pain/Temp > 100.5 04/28/18 13:57 05/23/18 13:56 Acetaminophen/ Hydrocodone Bitart ([place] 10/325) 1 tab Q6H PRN ORAL For Pain 04/28/18 16:30 04/30/18 22:29 04/29/18 08:32 Albuterol/ Ipratropium (Albuterol/ Ipratropium) 3 ml Q4HRT HHN 04/29/18 07:00 04/29/18 15:14 04/29/18 10:42 Allopurinol (Zyloprim) 100 mg DAILY ORAL 04/29/18 09:00 05/24/18 08:59 04/29/18 08:28 Amlodipine Besylate (Norvasc) 5 mg DAILY ORAL 04/29/18 09:00 05/24/18 08:59 Calcium Carbonate (Tums) 500 mg TIDPRN PRN ORAL Nausea & Vomiting/Dyspepsia 04/28/18 14:00 05/26/18 13:59 Clonidine HCl (Catapres tab) 0.2 mg BID ORAL 04/28/18 18:00 05/23/18 22:29 04/28/18 17:36 Dextrose (Dextrose 50%) 25 ml Q30M PRN IV Hypoglycemia 04/28/18 14:00 05/23/18 22:59 Dextrose (Dextrose 50%) 50 ml Q30M PRN IV Hypoglycemia 04/28/18 14:00 05/23/18 22:59 Docusate Sodium (Colace) 100 mg TWICE A DAY ORAL 04/28/18 18:00 05/24/18 08:59 04/29/18 08:28 Epoetin Yung (Procrit (for ESRD on dialysis)) 7,000 units SUN-SUN-SUN SUBQ 04/29/18 21:00 05/29/18 20:59 Finasteride (Proscar) 5 mg DAILY ORAL 04/29/18 09:00 05/24/18 08:59 04/29/18 08:27 Gabapentin (Neurontin) 300 mg DAILY ORAL 04/29/18 09:00 05/24/18 08:59 04/29/18 08:28 Heparin Sodium (Porcine) (Heparin Sod 1000 units/ml 10ml) 500 unit ONCE PRN IV DIALYSIS 04/28/18 13:59 04/29/18 23:59 Heparin Sodium (Porcine) (Heparin Sod 1000 units/ml 10ml) 2,000 unit ONCE PRN IV DIALYSIS 04/28/18 14:05 04/29/18 23:59 Heparin Sodium/ Dextrose 500 ml @ 37.888 mls/ hr ADJUST PER PROTOCOL IV 04/28/18 13:57 05/28/18 13:56 04/29/18 08:52 Insulin Aspart (NovoLOG) BEFORE MEALS AND HS SUBQ 04/28/18 16:30 05/24/18 06:29 04/29/18 06:57 Iron Sucrose 100 mg/Sodium Chloride 60 ml @ 240 mls/hr BEDTIME IV 04/28/18 21:00 05/01/18 21:14 04/28/18 23:10 Meropenem 500 mg/ Sodium Chloride 55 ml @ 110 mls/hr Q24H IVPB 04/28/18 21:00 05/02/18 20:59 04/28/18 23:10 Moxifloxacin HCl (Vigamox) 1 drop Q8HR BOTH EYES 04/28/18 14:00 05/04/18 13:59 04/29/18 06:00 Pantoprazole (Protonix) 40 mg DAILY IVP 04/29/18 09:00 05/24/18 08:59 04/29/18 08:28 Sodium Chloride 1,000 ml @ 500 mls/hr Q2H PRN IVLG sbp<90 during hd 04/28/18 14:05 04/29/18 23:59 Tamsulosin HCl (Flomax) 0.4 mg BEDTIME ORAL 04/28/18 21:00 05/23/18 23:44 04/28/18 21:00 Vancomycin HCl (Vanco rx to dose) 1 ea DAILY PRN MISC Per rx protocol 04/29/18 09:00 05/23/18 18:14 Vitamin B Complex/ Vit C/Folic Acid (Nephrovite) 1 tab DAILY ORAL 04/29/18 09:00 05/26/18 08:59 04/29/18 08:27 Warfarin Sodium (Coumadin per pharmacy) 1 ea DAILY PRN MISC Per rx protocol 04/29/18 08:15 05/29/18 08:14 Tyrel Platt MD Apr 29, 2018 12:18
--- NOTE | 2018-04-29 12:45 | Nephrology Progress Note ---
Assessment/Plan Problem List: (1) ESRD (end stage renal disease) (2) Diabetic infection of left foot (3) Acute DVT (deep venous thrombosis) Assessment: LLE (4) PVD (peripheral vascular disease) (5) Anemia Assessment: worse (6) Iron deficiency (7) Thrombocytopenia Assessment: better (8) HTN (hypertension) Assessment: uncontrolled Plan HD today with UF as tolerated continue Epogen +IV Iron abxs anticoagulation Transfusion follow labs Discussed with Dr Platt and Dr Sewell tighter BP control when pt is at dry weight Subjective Subjective feels better off BIPAP Objective Objective Last 24 Hour Vital Signs Date Time Temp Pulse Resp B/P (MAP) Pulse Ox O2 Delivery O2 Flow Rate FiO2 04/29/18 11:53 97.6 99 17 178/95 (122) 98 04/29/18 10:57 99 16 98 Bi-pap 40 04/29/18 10:43 101 28 98 Bi-pap 40 04/29/18 10:41 101 15 98 Facial 40 04/29/18 09:27 109 24 95 Facial 40 04/29/18 09:00 Nasal Cannula 4.0 04/29/18 08:11 112 166/127 04/29/18 08:10 166/127 04/29/18 08:00 98.0 112 22 166/127 (140) 95 04/29/18 08:00 110 04/29/18 07:32 107 26 94 Nasal Cannula 4.0 36 04/29/18 07:18 89 Nasal Cannula 4.0 36 04/29/18 07:18 Nasal Cannula 4.0 36 04/29/18 07:17 117 28 Nasal Cannula 4.0 36 04/29/18 07:17 117 28 89 Nasal Cannula 4.0 36 04/29/18 04:00 97.6 102 19 143/80 (101) 99 04/29/18 00:57 104 20 100 Nasal Cannula 2.0 28 04/29/18 00:46 103 20 99 Nasal Cannula 2.0 28 04/29/18 00:00 97.3 105 19 160/97 (118) 95 04/28/18 21:36 103 22 99 Facial 30 04/28/18 21:00 Bi-pap 04/28/18 20:04 104 22 97 Facial 30 04/28/18 20:00 97.3 106 19 156/93 (114) 96 04/28/18 19:58 103 20 98 Nasal Cannula 2.0 28 04/28/18 19:49 Nasal Cannula 2.0 28 04/28/18 19:49 99 20 97 Nasal Cannula 2.0 28 04/28/18 19:48 97 Nasal Cannula 2.0 28 04/28/18 17:36 148/87 04/28/18 16:00 97.3 103 22 148/74 (98) 94 04/28/18 15:05 99 22 100 Facial 30 04/28/18 13:26 105 04/28/18 13:03 97 20 99 Nasal Cannula 2.0 28 04/28/18 12:56 97 20 97 Nasal Cannula 2.0 28 Intake and Output 04/28/18 04/29/18 19:00 07:00 Intake Total 600 ml 360 ml Output Total 300 ml Balance 300 ml 360 ml Intake Oral 600 ml Other 360 ml Output Urine Total 300 ml Laboratory Tests 04/28/18 22:40: Activated Partial Thromboplast Time 78H Height (Feet): 5 Height (Inches): 7.00 Weight (Pounds): 232 Cardiovascular: normal rate Respiratory/Chest: lungs clear Extremities: severe edema Johan Harper MD Apr 29, 2018 12:44
--- NOTE | 2018-04-29 14:03 | Cardiac Electrophysiology PN ---
Assessment/Plan Status Narrative Normal left ventricular chamber size, systolic function and wall motion. Left ventricular ejection fraction estimated to be 60-65 %. Moderate left ventricular hypertrophy by 2-D. Small posterior pericardial effusion. Moderate left atrial enlargement. Mild right atrial enlargement. Right ventricular chamber size is within normal limits. Moderate aortic valve calcification with decreased cusp excursion c/w aortic stenosis. Moderately thickened mitral valve leaflets with normal excursion. Mitral annulus and aortic root calcification. Pulmonic valve not well visualized. Normal tricuspid valve structure. IVC dilated at 2.4 cm with slight physiologic collapse suggestive of in Assessment/Plan 1. Congestive heart failure. BNP of more than 35,000 on hemodialysis. EF 65% 2. Troponin elevation. Troponin of 0.057. It could be due to renal failure. The patient does not have any chest pain. Echocardiogram EF 65%. 3. Hypertension. On hemodialysis, Norvasc 5 mg daily and clonidine 0.2 mg b.i.d. 4. Lower extremity cellulitis, on iv Abx per ID 5. Morbid obesity. 6. Peripheral vascular disease left metatarsal and finger amputations 7. Respiratory failure/ COPD. On BIPAP 8. Acute left leg DVT on heparin drip and Coumadin per Rx DW RN Subjective Subjective On BIPAP and Oxygen on tele. No new events. Objective Last 24 Hour Vital Signs Date Time Temp Pulse Resp B/P (MAP) Pulse Ox O2 Delivery O2 Flow Rate FiO2 04/29/18 13:20 103 18 98 Facial 40 04/29/18 12:00 101 04/29/18 11:53 97.6 99 17 178/95 (122) 98 04/29/18 10:57 99 16 98 Bi-pap 40 04/29/18 10:43 101 28 98 Bi-pap 40 04/29/18 10:41 101 15 98 Facial 40 04/29/18 09:27 109 24 95 Facial 40 04/29/18 09:00 Nasal Cannula 4.0 04/29/18 08:11 112 166/127 04/29/18 08:10 166/127 04/29/18 08:00 98.0 112 22 166/127 (140) 95 04/29/18 08:00 110 04/29/18 07:32 107 26 94 Nasal Cannula 4.0 36 04/29/18 07:18 89 Nasal Cannula 4.0 36 04/29/18 07:18 Nasal Cannula 4.0 36 04/29/18 07:17 117 28 Nasal Cannula 4.0 36 04/29/18 07:17 117 28 89 Nasal Cannula 4.0 36 04/29/18 04:00 97.6 102 19 143/80 (101) 99 04/29/18 00:57 104 20 100 Nasal Cannula 2.0 28 04/29/18 00:46 103 20 99 Nasal Cannula 2.0 28 04/29/18 00:00 97.3 105 19 160/97 (118) 95 04/28/18 21:36 103 22 99 Facial 30 04/28/18 21:00 Bi-pap 04/28/18 20:04 104 22 97 Facial 30 04/28/18 20:00 97.3 106 19 156/93 (114) 96 04/28/18 19:58 103 20 98 Nasal Cannula 2.0 28 04/28/18 19:49 Nasal Cannula 2.0 28 04/28/18 19:49 99 20 97 Nasal Cannula 2.0 28 04/28/18 19:48 97 Nasal Cannula 2.0 28 04/28/18 17:36 148/87 04/28/18 16:00 97.3 103 22 148/74 (98) 94 04/28/18 15:05 99 22 100 Facial 30 Intake and Output 04/28/18 04/29/18 19:00 07:00 Intake Total 600 ml 360 ml Output Total 300 ml Balance 300 ml 360 ml Intake Oral 600 ml Other 360 ml Output Urine Total 300 ml Laboratory Tests Test 04/28/18 22:40 Activated Partial Thromboplast Time 78 SEC (23-33) H Objective HEAD AND NECK: No JVD.On BIPAP LUNGS: Decreased breath sounds. CARDIOVASCULAR: Regular S1 and S2 with no gallop. ABDOMEN: Soft. EXTREMITIES: Status post multiple amputations, 2+ lower extremity edema. Left foot amputated Shelton Perdomo MD Apr 29, 2018 14:03
[2018-04-29 14:58] LABS: HEMATOCRIT 23.8 % (42.0-52.0); HEMOGLOBIN 7.4 G/DL (14.2-18.0); MEAN CORPUSCULAR VOLUME 92 FL (80-99); PLATELET COUNT 89 K/UL (150-450); RED BLOOD COUNT 2.59 M/UL (4.70-6.10); RED CELL DISTRIBUTION WIDTH 19.1 % (11.6-14.8); WHITE BLOOD COUNT 6.6 K/UL (4.8-10.8)
[2018-04-29 15:00] LABS: INR 1.9 (0.9-1.1)
[2018-04-29 15:07] LABS: ANION GAP 13 mmol/L (5-15); BLOOD UREA NITROGEN 84 mg/dL (7-18); CALCIUM 9.5 MG/DL (8.5-10.1); CARBON DIOXIDE 25 MMOL/L (21-32); CHLORIDE 94 MMOL/L (98-107); CREATININE 9.4 MG/DL (0.55-1.30); PHOSPHORUS 8.6 MG/DL (2.5-4.9); POTASSIUM 5.5 MMOL/L (3.5-5.1); SODIUM 132 MMOL/L (136-145)
--- NOTE | 2018-04-29 15:23 | NUR ---
RD ASSESSMENT & RECOMMENDATIONS SEE CARE ACTIVITY FOR COMPLETE ASSESSMENT DAILY ESTIMATED NEEDS: Needs based on DM, wound, HD,Obesity/ 77kg abw 23-28 kcals/kg 0579-1029 total kcals 1.25-1.8 g protein/kg 96-139 g total protein 20-22 mL/kg 0714-8272 total fluid mLs NUTRITION DIAGNOSIS: Altered nutrition related lab values R/T ESRD, DM as evidenced by elev Creat (8.2), low Na (134), elev POC (106-259). CURRENT DIET:CCHO MED, LOW K, LOW NA PO DIET RECOMMENDATIONS: RENAL, CCHO MED/ texture as tolerated ADDITIONAL RECOMMENDATIONS: * TXR pt to bed w/ bedscale, obtain calibrated dry wt post HD * Check phos level- ESRD dx, not yet checked * Add Aashish 1pkt BID for wound healing. * Texture modification as needed- pt on BIPAP PRN
--- NOTE | 2018-04-29 15:26 | General Progress Note ---
Assessment/Plan Assessment/Plan # DVT of the deep veins superficial and politeal of the left leg, thrombocytopenia likely due to hep B chronic status --> VQ scan shows low probability of PE --> remains with anemia and low platelets therefore contraindication for anticoagulation --> will hold off on IVC filter --> started on coumadin inr goal 2-3 --> Cards and pulm recs appreciated as well as renal, vasc # Thrombocytopenia -- plt goal >20k, transfuse as required, hepatitis B chronic infection --> plt trend in the 66k-->63k-->58k-->60k (likely chronic) --> hep B noted and if no change in plt, consider anticoagulation --> coumadin started # Anemia of iron deficiency --> started on iron and epogen (AGREE WITH RENAL) --> anemia panel has been reviewed --> hgb goal >7, transfuse as needed --> peripheral smear to be reviewed # Acute CHF exacerbation/pulmonary edema --> as per pulm # COPD w/o obvious exacerbation # CHU # ESRD on HD --> hd as per renal # Hx multiple amputations # Diabetic foot infection --> as per ID # Hepatitis B ++ Ag # Acute CHF exacerbation/pulmonary edema # COPD w/o obvious exacerbation Time of note does not necessarily reflect time of encounter Greatly appreciate consultation! Subjective Constitutional: Denies: no symptoms, chills, diaphoresis, fever, malaise, weakness, other HEENT: Denies: no symptoms, eye pain, blurred vision, tearing, double vision, ear pain, ear discharge, nose pain, nose congestion, throat pain, throat swelling, mouth pain, mouth swelling, other Cardiovascular: Denies: no symptoms, chest pain, edema, irregular heart rate, lightheadedness, palpitations, syncope, other Respiratory: Denies: no symptoms, cough, orthopnea, shortness of breath, SOB with excertion, SOB at rest, sputum, stridor, wheezing, other Gastrointestinal/Abdominal: Denies: no symptoms, abdomen distended, abdominal pain, black stools, tarry stools, blood in stool, constipated, diarrhea, difficulty swallowing, nausea, poor appetite, poor fluid intake, rectal bleeding , vomiting, other Genitourinary: Denies: no symptoms, burning, discharge, frequency, flank pain, hematuria, incontinence, pain, urgency, other Neurologic/Psychiatric: Denies: no symptoms, anxiety, depressed, emotional problems, headache, numbness, paresthesia, pre-existing deficit, seizure, tingling, tremors, weakness, other Endocrine: Denies: no symptoms, excessive sweating, flushing, intolerance to cold, intolerance to heat, increased hunger, increased thirst, increased urine, unexplained weight gain, unexplained weight loss, other Hematologic/Lymphatic: Denies: no symptoms, anemia, easy bleeding, easy bruising, other Allergies: Coded Allergies: NO KNOWN DRUG ALLERGIES (Verified Allergy, Unknown, 03/06/18) Subjective 04/26: no events, potential plan for ivc f on sunday.12: no further ivc filter planned, started on coumadin inr goal 2-3 04/28: on iron and epogen dw Dr. Harper, continue as per his recs 04/29: awake and comfortable, HD today, On BIPAP and Oxygen. No new events. Objective Last 24 Hour Vital Signs Date Time Temp Pulse Resp B/P (MAP) Pulse Ox O2 Delivery O2 Flow Rate FiO2 04/29/18 15:11 103 21 100 Bi-pap 40 04/29/18 15:02 105 21 100 Facial 40 04/29/18 14:59 105 21 100 Bi-pap 40 04/29/18 13:20 103 18 98 Facial 40 04/29/18 12:00 101 04/29/18 11:53 97.6 99 17 178/95 (122) 98 04/29/18 10:57 99 16 98 Bi-pap 40 04/29/18 10:43 101 28 98 Bi-pap 40 04/29/18 10:41 101 15 98 Facial 40 04/29/18 09:27 109 24 95 Facial 40 04/29/18 09:00 Nasal Cannula 4.0 04/29/18 08:11 112 166/127 04/29/18 08:10 166/127 04/29/18 08:00 98.0 112 22 166/127 (140) 95 04/29/18 08:00 110 04/29/18 07:32 107 26 94 Nasal Cannula 4.0 36 04/29/18 07:18 89 Nasal Cannula 4.0 36 04/29/18 07:18 Nasal Cannula 4.0 36 04/29/18 07:17 117 28 Nasal Cannula 4.0 36 04/29/18 07:17 117 28 89 Nasal Cannula 4.0 36 04/29/18 04:00 97.6 102 19 143/80 (101) 99 04/29/18 00:57 104 20 100 Nasal Cannula 2.0 28 04/29/18 00:46 103 20 99 Nasal Cannula 2.0 28 04/29/18 00:00 97.3 105 19 160/97 (118) 95 04/28/18 21:36 103 22 99 Facial 30 04/28/18 21:00 Bi-pap 04/28/18 20:04 104 22 97 Facial 30 04/28/18 20:00 97.3 106 19 156/93 (114) 96 04/28/18 19:58 103 20 98 Nasal Cannula 2.0 28 04/28/18 19:49 Nasal Cannula 2.0 28 04/28/18 19:49 99 20 97 Nasal Cannula 2.0 28 04/28/18 19:48 97 Nasal Cannula 2.0 28 04/28/18 17:36 148/87 04/28/18 16:00 97.3 103 22 148/74 (98) 94 Intake and Output 04/28/18 04/29/18 19:00 07:00 Intake Total 600 ml 360 ml Output Total 300 ml Balance 300 ml 360 ml Intake Oral 600 ml Other 360 ml Output Urine Total 300 ml Laboratory Tests 04/28/18 22:40: Activated Partial Thromboplast Time 78H 04/29/18 14:30: Activated Partial Thromboplast Time [Pending], White Blood Count 6.6, Red Blood Count 2.59L, Hemoglobin 7.4L, Hematocrit 23.8L, Mean Corpuscular Volume 92, Mean Corpuscular Hemoglobin 28.7, Mean Corpuscular Hemoglobin Concent 31.3L, Red Cell Distribution Width 19.1H, Platelet Count 89L, Mean Platelet Volume 6.6 , Neutrophils (%) (Auto) , Lymphocytes (%) (Auto) , Monocytes (%) (Auto) , Eosinophils (%) (Auto) , Basophils (%) (Auto) , Neutrophils % (Manual) [Pending] , Lymphocytes % (Manual) [Pending], Platelet Estimate [Pending], Platelet Morphology [Pending], Prothrombin Time 18.9H, Prothromb Time International Ratio 1.9H, Sodium Level 132L, Potassium Level 5.5H, Chloride Level 94L, Carbon Dioxide Level 25, Anion Gap 13, Blood Urea Nitrogen 84H, Creatinine 9.4H, Estimat Glomerular Filtration Rate 6.8, Glucose Level 120H, Calcium Level 9.5, Phosphorus Level 8.6H, Random Vancomycin Level 19.6 Height (Feet): 5 Height (Inches): 7.00 Weight (Pounds): 232 Objective HEAD AND NECK: No JVD. LUNGS: Decreased breath sounds. CARDIOVASCULAR: Regular S1 and S2 with no gallop. ABDOMEN: Soft. EXTREMITIES: Status post multiple amputations, 2+ lower extremity edema. Juve Soto MD Apr 29, 2018 15:26
[2018-04-29 16:00] VITALS: BP 160/55
--- NOTE | 2018-04-29 16:15 | Infectious Diseases Prog Note ---
Assessment/Plan Problems: (1) Acute osteomyelitis of metatarsal bone of left foot Assessment & Plan: left stump wound is grew MRSA and Enterobacter cloacae , will continue meropenem and vancomycin treatment for osteomyelitis of the left foot metatarsal bone for 6 weeks . 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 vascular recommended no revascularization at this point. will treat with iv antibiotics for 6 weeks for his left metatarsal osteomyelitis (2) Achilles tendon infection Assessment & Plan: with open wound, already on wide spectrum antibiotics coverage , continue local wound care and dressings change , podiatry is following (3) Diabetic foot infection Assessment & Plan: continue wide spectrum antibiotics , with tight glycemic control. (4) ESRD (end stage renal disease) Assessment & Plan: on HD , renal is following (5) PVD (peripheral vascular disease) Assessment & Plan: had vascular eval , no need for angioplasty of the left leg (6) Hepatitis B surface antigen positive Assessment & Plan: rule out active HBV infection, await viral load to confirm (7) Acute dyspnea Assessment & Plan: suspect fluids over load , monitor ABG, and CXR , continue BIPAP, pulmonary is following (8) Acute bacterial conjunctivitis Assessment & Plan: continue moxifloxacin eye drops for 5 days Subjective Constitutional: Reports: no symptoms HEENT: Reports: no symptoms Respiratory: Reports: no symptoms Breasts: Reports: no symptoms Cardiovascular: Reports: no symptoms Gastrointestinal/Abdominal: Reports: no symptoms Genitourinary: Reports: no symptoms Neurologic: Reports: no symptoms Psychiatric: Reports: no symptoms Skin: Reports: ulcer Endocrine: Reports: no symptoms Hematologic: Reports: no symptoms Musculoskeletal: Reports: no symptoms Allergies: Coded Allergies: NO KNOWN DRUG ALLERGIES (Verified Allergy, Unknown, 03/06/18) Subjective he was still on BIPAP , with improvement of his SOB, feels better over all with less pain and swelling in his left foot, no productive cough Objective Vital Signs Last 24 Hour Vital Signs Date Time Temp Pulse Resp B/P (MAP) Pulse Ox O2 Delivery O2 Flow Rate FiO2 04/29/18 15:11 103 21 100 Bi-pap 40 04/29/18 15:02 105 21 100 Facial 40 04/29/18 14:59 105 21 100 Bi-pap 40 04/29/18 13:20 103 18 98 Facial 40 04/29/18 12:00 101 04/29/18 11:53 97.6 99 17 178/95 (122) 98 04/29/18 10:57 99 16 98 Bi-pap 40 04/29/18 10:43 101 28 98 Bi-pap 40 04/29/18 10:41 101 15 98 Facial 40 04/29/18 09:27 109 24 95 Facial 40 04/29/18 09:00 Nasal Cannula 4.0 04/29/18 08:11 112 166/127 04/29/18 08:10 166/127 04/29/18 08:00 98.0 112 22 166/127 (140) 95 04/29/18 08:00 110 04/29/18 07:32 107 26 94 Nasal Cannula 4.0 36 04/29/18 07:18 89 Nasal Cannula 4.0 36 04/29/18 07:18 Nasal Cannula 4.0 36 04/29/18 07:17 117 28 Nasal Cannula 4.0 36 04/29/18 07:17 117 28 89 Nasal Cannula 4.0 36 04/29/18 04:00 97.6 102 19 143/80 (101) 99 04/29/18 00:57 104 20 100 Nasal Cannula 2.0 28 04/29/18 00:46 103 20 99 Nasal Cannula 2.0 28 04/29/18 00:00 97.3 105 19 160/97 (118) 95 04/28/18 21:36 103 22 99 Facial 30 04/28/18 21:00 Bi-pap 04/28/18 20:04 104 22 97 Facial 30 04/28/18 20:00 97.3 106 19 156/93 (114) 96 04/28/18 19:58 103 20 98 Nasal Cannula 2.0 28 04/28/18 19:49 Nasal Cannula 2.0 28 04/28/18 19:49 99 20 97 Nasal Cannula 2.0 28 04/28/18 19:48 97 Nasal Cannula 2.0 28 04/28/18 17:36 148/87 Height (Feet): 5 Height (Inches): 7.00 Weight (Pounds): 232 General Appearance: WD/WN, no acute distress HEENT: normocephalic, atraumatic, anicteric, mucous membranes moist, PERRL, EOMI, pharynx normal, supple, no JVD Respiratory/Chest: no respiratory distress, no accessory muscle use, decreased breath sounds, crackles/rales Cardiovascular: normal peripheral pulses, normal rate, regular rhythm, no gallop/murmur, no JVD Abdomen: normal bowel sounds, soft, non tender, no organomegaly, non distended , no mass, no scars Extremities: no cyanosis, no clubbing Skin: no rash, no lesions, ulcers Neurologic/Psychiatric: alert, oriented x 3, responsive Lymphatic: no neck adenopathy, no groin adenopathy Musculoskeletal: normal muscle bulk, no effusion Laboratory Tests Test 04/28/18 22:40 04/29/18 14:30 Activated Partial Thromboplast Time 78 SEC (23-33) H 81 SEC (23-33) H White Blood Count 6.6 K/UL (4.8-10.8) Red Blood Count 2.59 M/UL (4.70-6.10) L Hemoglobin 7.4 G/DL (14.2-18.0) L Hematocrit 23.8 % (42.0-52.0) L Mean Corpuscular Volume 92 FL (80-99) Mean Corpuscular Hemoglobin 28.7 PG (27.0-31.0) Mean Corpuscular Hemoglobin Concent 31.3 G/DL (32.0-36.0) L Red Cell Distribution Width 19.1 % (11.6-14.8) H Platelet Count 89 K/UL (150-450) L Mean Platelet Volume 6.6 FL (6.5-10.1) Neutrophils (%) (Auto) % (45.0-75.0) Lymphocytes (%) (Auto) % (20.0-45.0) Monocytes (%) (Auto) % (1.0-10.0) Eosinophils (%) (Auto) % (0.0-3.0) Basophils (%) (Auto) % (0.0-2.0) Neutrophils % (Manual) Pending Lymphocytes % (Manual) Pending Platelet Estimate Pending Platelet Morphology Pending Prothrombin Time 18.9 SEC (9.30-11.50) H Prothromb Time International Ratio 1.9 (0.9-1.1) H Sodium Level 132 MMOL/L (136-145) L Potassium Level 5.5 MMOL/L (3.5-5.1) H Chloride Level 94 MMOL/L (98-107) L Carbon Dioxide Level 25 MMOL/L (21-32) Anion Gap 13 mmol/L (5-15) Blood Urea Nitrogen 84 mg/dL (7-18) H Creatinine 9.4 MG/DL (0.55-1.30) H Estimat Glomerular Filtration Rate 6.8 mL/min (>60) Glucose Level 120 MG/DL (74-106) H Calcium Level 9.5 MG/DL (8.5-10.1) Phosphorus Level 8.6 MG/DL (2.5-4.9) H Random Vancomycin Level 19.6 ug/mL Current Medications Medications (Trade) Dose Ordered Sig/Oliverio Route PRN Reason Start Time Stop Time Status Last Admin Dose Admin Acetaminophen (Tylenol) 650 mg Q6H PRN ORAL Mild Pain/Temp > 100.5 04/28/18 13:57 05/23/18 13:56 Acetaminophen/ Hydrocodone Bitart ([place] 10/325) 1 tab Q6H PRN ORAL For Pain 04/29/18 12:24 05/07/18 12:23 Allopurinol (Zyloprim) 100 mg DAILY ORAL 04/29/18 09:00 05/24/18 08:59 04/29/18 08:28 Amlodipine Besylate (Norvasc) 5 mg DAILY ORAL 04/29/18 09:00 05/24/18 08:59 Calcium Carbonate (Tums) 500 mg TIDPRN PRN ORAL Nausea & Vomiting/Dyspepsia 04/28/18 14:00 05/26/18 13:59 Clonidine HCl (Catapres tab) 0.2 mg BID ORAL 04/28/18 18:00 05/23/18 22:29 04/28/18 17:36 Dextrose (Dextrose 50%) 25 ml Q30M PRN IV Hypoglycemia 04/28/18 14:00 05/23/18 22:59 Dextrose (Dextrose 50%) 50 ml Q30M PRN IV Hypoglycemia 04/28/18 14:00 05/23/18 22:59 Docusate Sodium (Colace) 100 mg TWICE A DAY ORAL 04/28/18 18:00 05/24/18 08:59 04/29/18 08:28 Epoetin Yung (Procrit (for ESRD on dialysis)) 7,000 units SUN-SUN-SUN SUBQ 04/29/18 21:00 2/13/19 20:59 Finasteride (Proscar) 5 mg DAILY ORAL 04/29/18 09:00 05/24/18 08:59 04/29/18 08:27 Gabapentin (Neurontin) 300 mg DAILY ORAL 04/29/18 09:00 05/24/18 08:59 04/29/18 08:28 Heparin Sodium (Porcine) (Heparin Sod 1000 units/ml 10ml) 500 unit ONCE PRN IV DIALYSIS 04/28/18 13:59 04/29/18 23:59 Heparin Sodium (Porcine) (Heparin Sod 1000 units/ml 10ml) 2,000 unit ONCE PRN IV DIALYSIS 04/28/18 14:05 04/29/18 23:59 Heparin Sodium/ Dextrose 500 ml @ 37.888 mls/ hr ADJUST PER PROTOCOL IV 04/28/18 13:57 05/28/18 13:56 04/29/18 08:52 Insulin Aspart (NovoLOG) BEFORE MEALS AND HS SUBQ 04/28/18 16:30 05/24/18 06:29 04/29/18 12:28 Iron Sucrose 100 mg/Sodium Chloride 60 ml @ 240 mls/hr BEDTIME IV 04/28/18 21:00 05/01/18 21:14 04/28/18 23:10 Meropenem 500 mg/ Sodium Chloride 55 ml @ 110 mls/hr Q24H IVPB 04/28/18 21:00 05/02/18 20:59 04/28/18 23:10 Moxifloxacin HCl (Vigamox) 1 drop Q8HR BOTH EYES 04/28/18 14:00 05/04/18 13:59 04/29/18 14:06 Pantoprazole (Protonix) 40 mg DAILY IVP 04/29/18 09:00 05/24/18 08:59 04/29/18 08:28 Sodium Chloride 1,000 ml @ 500 mls/hr Q2H PRN IVLG sbp<90 during hd 04/28/18 14:05 04/29/18 23:59 Tamsulosin HCl (Flomax) 0.4 mg BEDTIME ORAL 04/28/18 21:00 05/23/18 23:44 04/28/18 21:00 Vancomycin HCl (Vanco rx to dose) 1 ea DAILY PRN MISC Per rx protocol 04/29/18 09:00 05/23/18 18:14 Vancomycin/Sodium Chloride 250 ml @ 166.667 mls/hr ONCE IVPB 04/29/18 21:00 04/29/18 23:00 Vitamin B Complex/ Vit C/Folic Acid (Nephrovite) 1 tab DAILY ORAL 04/29/18 09:00 05/26/18 08:59 04/29/18 08:27 Warfarin Sodium (Coumadin per pharmacy) 1 ea DAILY PRN MISC Per rx protocol 04/29/18 08:15 05/29/18 08:14 Warfarin Sodium (Coumadin) 3 mg ONCE ORAL 04/29/18 17:00 04/29/18 19:00 Jaime Casey M.D. Apr 29, 2018 16:15
--- NOTE | 2018-04-29 16:20 | NUR ---
CASE MANAGEMENT:REVIEW 04/29/18 SI: CELLULITIS. OSTEO. ESRD ON HD HR 105 SAT 100% ON BIPAP 40% H/H-7.4/23.8 K+5.5 BUN 84 CR 9.4 IS: TRANSFUSE PRBC IV VANCOMYCIN X1 IV MEROPENEM Q24 COUMADIN PO X1 HEPARIN GTT : TELEMETRY
--- NOTE | 2018-04-29 16:38 | NUR ---
NURSE NOTES: 1 unit of blood given by dialysis nurse CLEVE Armstrong. After 1 unit of blood, BP went up to 227/60. Called and informed Dr. Sewell, Dr. Sewell said to not to give 2nd blood. Blood bank made aware.
[2018-04-29] MEDS ORDERED: Warfarin Sodium 3mg ORAL SCH (17:00)
--- NOTE | 2018-04-29 19:32 | NUR ---
HAND-OFF: Report given to CLEVE Rajput. Stable condition.
--- NOTE | 2018-04-29 19:57 | NUR ---
NURSE NOTES: rECEIVED PT FROM CLEVE Vences. Pt awake, alert, and sitting up in chair. Call light within reach. Will continue to monitor.
[2018-04-29 20:00] VITALS: BP 149/67
--- NOTE | 2018-04-29 20:04 | General Progress Note ---
Assessment/Plan Assessment/Plan Assessment - Heme (+) stools - Anemia and thrombocytopenia - DVT - on anticoagulation - Hep B S Ag (+) - DM - PVD - CHU - PVD - Poor Px Recommendations - Patient declines GI w/u - Will follow conservatively - Monitor CBC while on anticoagulation - Replace Fe IV - PPI - if H&H declines on anticoagulation, may need to reconsider IVC filter - Check HBV quantitative PCR Subjective Allergies: Coded Allergies: NO KNOWN DRUG ALLERGIES (Verified Allergy, Unknown, 03/06/18) Subjective No new issues overnight on CPAP mask sitting in chair s/p 1 unit PRBC Objective Last 24 Hour Vital Signs Date Time Temp Pulse Resp B/P (MAP) Pulse Ox O2 Delivery O2 Flow Rate FiO2 04/29/18 18:32 Bi-pap 04/29/18 18:28 Bi-pap 04/29/18 17:20 160/55 04/29/18 17:00 106 23 95 04/29/18 16:00 104 04/29/18 16:00 97.3 110 17 160/55 (90) 100 04/29/18 15:11 103 21 100 Bi-pap 40 04/29/18 15:02 105 21 100 Facial 40 04/29/18 14:59 105 21 100 Bi-pap 40 04/29/18 13:20 103 18 98 Facial 40 04/29/18 12:00 101 04/29/18 11:53 97.6 99 17 178/95 (122) 98 04/29/18 10:57 99 16 98 Bi-pap 40 04/29/18 10:43 101 28 98 Bi-pap 40 04/29/18 10:41 101 15 98 Facial 40 04/29/18 09:27 109 24 95 Facial 40 04/29/18 09:00 Nasal Cannula 4.0 04/29/18 08:11 112 166/127 04/29/18 08:10 166/127 04/29/18 08:00 98.0 112 22 166/127 (140) 95 04/29/18 08:00 110 04/29/18 07:32 107 26 94 Nasal Cannula 4.0 36 04/29/18 07:18 89 Nasal Cannula 4.0 36 04/29/18 07:18 Nasal Cannula 4.0 36 04/29/18 07:17 117 28 Nasal Cannula 4.0 36 04/29/18 07:17 117 28 89 Nasal Cannula 4.0 36 04/29/18 04:00 97.6 102 19 143/80 (101) 99 04/29/18 00:57 104 20 100 Nasal Cannula 2.0 28 04/29/18 00:46 103 20 99 Nasal Cannula 2.0 28 04/29/18 00:00 97.3 105 19 160/97 (118) 95 04/28/18 21:36 103 22 99 Facial 30 04/28/18 21:00 Bi-pap 04/28/18 20:04 104 22 97 Facial 30 Intake and Output 04/28/18 04/29/18 19:00 07:00 Intake Total 600 ml 360 ml Output Total 300 ml Balance 300 ml 360 ml Intake Oral 600 ml Other 360 ml Output Urine Total 300 ml Laboratory Tests 04/28/18 22:40: Activated Partial Thromboplast Time 78H 04/29/18 14:30: Activated Partial Thromboplast Time 81H, White Blood Count 6.6, Red Blood Count 2.59L, Hemoglobin 7.4L, Hematocrit 23.8L, Mean Corpuscular Volume 92, Mean Corpuscular Hemoglobin 28.7, Mean Corpuscular Hemoglobin Concent 31.3L, Red Cell Distribution Width 19.1H, Platelet Count 89L, Mean Platelet Volume 6.6, Neutrophils (%) (Auto) , Lymphocytes (%) (Auto) , Monocytes (%) (Auto) , Eosinophils (%) (Auto) , Basophils (%) (Auto) , Differential Total Cells Counted 100, Neutrophils % (Manual) 84H, Lymphocytes % (Manual) 5L, Monocytes % (Manual) 7, Eosinophils % (Manual) 3, Basophils % (Manual) 1, Band Neutrophils 0 , Platelet Estimate DecreasedL, Platelet Morphology Normal, Hypochromasia 2+, Anisocytosis 2+, Prothrombin Time 18.9H, Prothromb Time International Ratio 1.9H , Sodium Level 132L, Potassium Level 5.5H, Chloride Level 94L, Carbon Dioxide Level 25, Anion Gap 13, Blood Urea Nitrogen 84H, Creatinine 9.4H, Estimat Glomerular Filtration Rate 6.8, Glucose Level 120H, Calcium Level 9.5, Phosphorus Level 8.6H, Random Vancomycin Level 19.6 Height (Feet): 5 Height (Inches): 7.00 Weight (Pounds): 232 Objective Obese AA man NCAT coarse BS, ronchi RR obese abd nonfocal Bee Krueger MD Apr 29, 2018 20:03
--- NOTE | 2018-04-29 20:57 | General Progress Note ---
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 hepatitis per heme will hold off on ivc filter coumadin per pharmacy fe deficiency anemia, started on iron and epo GI eval trasnfuse with dialysis mat Harper bp elevated due to fluid overload will need dialysis today dialysis dependent pulmonary fup cards fup echo noted monior platelets hgb dvt and ulcer prohylaxis Subjective Allergies: Coded Allergies: NO KNOWN DRUG ALLERGIES (Verified Allergy, Unknown, 03/06/18) Subjective above noted some increased sob on cpap no cough no chest pain on heparin/ started on coumadin, still on cpap bp alos leonardo, as he is fluid overloaded Objective Last 24 Hour Vital Signs Date Time Temp Pulse Resp B/P (MAP) Pulse Ox O2 Delivery O2 Flow Rate FiO2 04/29/18 18:32 Bi-pap 04/29/18 18:28 Bi-pap 04/29/18 17:20 160/55 04/29/18 17:00 106 23 95 04/29/18 16:00 104 04/29/18 16:00 97.3 110 17 160/55 (90) 100 04/29/18 15:11 103 21 100 Bi-pap 40 04/29/18 15:02 105 21 100 Facial 40 04/29/18 14:59 105 21 100 Bi-pap 40 04/29/18 13:20 103 18 98 Facial 40 04/29/18 12:00 101 04/29/18 11:53 97.6 99 17 178/95 (122) 98 04/29/18 10:57 99 16 98 Bi-pap 40 04/29/18 10:43 101 28 98 Bi-pap 40 04/29/18 10:41 101 15 98 Facial 40 04/29/18 09:27 109 24 95 Facial 40 04/29/18 09:00 Nasal Cannula 4.0 04/29/18 08:11 112 166/127 04/29/18 08:10 166/127 04/29/18 08:00 98.0 112 22 166/127 (140) 95 04/29/18 08:00 110 04/29/18 07:32 107 26 94 Nasal Cannula 4.0 36 04/29/18 07:18 89 Nasal Cannula 4.0 36 04/29/18 07:18 Nasal Cannula 4.0 36 04/29/18 07:17 117 28 Nasal Cannula 4.0 36 04/29/18 07:17 117 28 89 Nasal Cannula 4.0 36 04/29/18 04:00 97.6 102 19 143/80 (101) 99 04/29/18 00:57 104 20 100 Nasal Cannula 2.0 28 04/29/18 00:46 103 20 99 Nasal Cannula 2.0 28 04/29/18 00:00 97.3 105 19 160/97 (118) 95 04/28/18 21:36 103 22 99 Facial 30 04/28/18 21:00 Bi-pap Intake and Output 04/28/18 04/29/18 19:00 07:00 Intake Total 600 ml 360 ml Output Total 300 ml Balance 300 ml 360 ml Intake Oral 600 ml Other 360 ml Output Urine Total 300 ml Laboratory Tests 04/28/18 22:40: Activated Partial Thromboplast Time 78H 04/29/18 14:30: Activated Partial Thromboplast Time 81H, White Blood Count 6.6, Red Blood Count 2.59L, Hemoglobin 7.4L, Hematocrit 23.8L, Mean Corpuscular Volume 92, Mean Corpuscular Hemoglobin 28.7, Mean Corpuscular Hemoglobin Concent 31.3L, Red Cell Distribution Width 19.1H, Platelet Count 89L, Mean Platelet Volume 6.6, Neutrophils (%) (Auto) , Lymphocytes (%) (Auto) , Monocytes (%) (Auto) , Eosinophils (%) (Auto) , Basophils (%) (Auto) , Differential Total Cells Counted 100, Neutrophils % (Manual) 84H, Lymphocytes % (Manual) 5L, Monocytes % (Manual) 7, Eosinophils % (Manual) 3, Basophils % (Manual) 1, Band Neutrophils 0 , Platelet Estimate DecreasedL, Platelet Morphology Normal, Hypochromasia 2+, Anisocytosis 2+, Prothrombin Time 18.9H, Prothromb Time International Ratio 1.9H , Sodium Level 132L, Potassium Level 5.5H, Chloride Level 94L, Carbon Dioxide Level 25, Anion Gap 13, Blood Urea Nitrogen 84H, Creatinine 9.4H, Estimat Glomerular Filtration Rate 6.8, Glucose Level 120H, Calcium Level 9.5, Phosphorus Level 8.6H, Random Vancomycin Level 19.6 Height (Feet): 5 Height (Inches): 7.00 Weight (Pounds): 232 Neck: supple Cardiovascular: normal rate Respiratory/Chest: decreased breath sounds Abdomen: soft Objective left lower extremity dressing intact clean no bleeding Moe Sewell MD Apr 29, 2018 20:57
[2018-04-29] MEDS ORDERED: Vancomycin 750mg/NS 250ml IVPB SCH (21:00)
[2018-04-29] MEDS ORDERED: Epogen (for ESRD on dialysis) SUBQ SCH ×2 (21:00)
[2018-04-29] MEDS: Tamsulosin 0.4mg cap ORAL SCH (21:21)
[2018-04-29] MEDS: Meropenem 500 MG in NS 55 ML IVPB SCH (21:22)
[2018-04-29] MEDS: Iron Sucrose 100 MG in NS 55 ML IV SCH (21:22)
[2018-04-30] VITALS: BP 159/96
[2018-04-30] MEDS: Albuterol/Ipratropium 3ml neb HHN SCH ×6 (03:30→22:52)
[2018-04-30 04:00] VITALS: BP 160/76
[2018-04-30] MEDS: Vigamox Opth Soln 3ml BOTH EYES SCH ×3 (06:00→22:33)
[2018-04-30] MEDS: NovoLOG Insulin Flexpen SUBQ SCH ×4 (06:20→20:51)
--- NOTE | 2018-04-30 07:47 | NUR ---
HAND-OFF: Report given to CLEVE Ramirez. Pt stable.
--- NOTE | 2018-04-30 08:07 | NUR ---
NURSE NOTES: Received patient from CLEVE Rajput. Patient resting in his bed with open eyes. AOx4. no c/o pain and distress at this time. IV site intact, patent running hep drip at 18 u/kg as ordered. pt HGB 7.4 and HCP is aware. Bed brakes engaged. call light and frequent used objects are with in reach. pt instructed to use his call light when need help and do not try to get out of bed with no speech pathologist assistant for safety reasons.pt verbalized understanding of the given instruction. will continue to monitor.
[2018-04-30 08:11] VITALS: BP 154/74
[2018-04-30] MEDS: Nephrovite tab (Rena-Vite) ORAL SCH (08:41)
[2018-04-30] MEDS: cloNIDine 0.2mg Tab ORAL SCH ×2 (08:50→16:15)
[2018-04-30] MEDS: Pantoprazole Inj IVP SCH (08:50)
[2018-04-30] MEDS: Docusate 100mg cap ORAL SCH ×2 (08:50→16:16)
[2018-04-30] MEDS: HYDROcodone/Acetamin 10/325 tab ORAL PRN ×2 (08:50→22:49)
[2018-04-30] MEDS: Allopurinol 100mg Tab ORAL SCH (08:51)
--- NOTE | 2018-04-30 09:23 | Cardiac Electrophysiology PN ---
Assessment/Plan Status Narrative Normal left ventricular chamber size, systolic function and wall motion. Left ventricular ejection fraction estimated to be 60-65 %. Moderate left ventricular hypertrophy by 2-D. Small posterior pericardial effusion. Moderate left atrial enlargement. Mild right atrial enlargement. Right ventricular chamber size is within normal limits. Moderate aortic valve calcification with decreased cusp excursion c/w aortic stenosis. Moderately thickened mitral valve leaflets with normal excursion. Mitral annulus and aortic root calcification. Pulmonic valve not well visualized. Normal tricuspid valve structure. IVC dilated at 2.4 cm with slight physiologic collapse suggestive of in Assessment/Plan 1. Congestive heart failure. BNP of more than 35,000 on hemodialysis. EF 65% On HD 2. Troponin elevation. Troponin of 0.057. It could be due to renal failure. The patient does not have any chest pain. Echocardiogram EF 65%. 3. Hypertension. On hemodialysis, Norvasc 5 mg daily and clonidine 0.2 mg b.i.d. 4. Lower extremity cellulitis, on iv Abx per ID 5. Morbid obesity. 6. Peripheral vascular disease left metatarsal and finger amputations 7. Respiratory failure/ COPD. On BIPAP 8. Acute left leg DVT on heparin drip and Coumadin per Rx DW RN Subjective Subjective On BIPAP still SOB on tele. No new events.In SR Objective Last 24 Hour Vital Signs Date Time Temp Pulse Resp B/P (MAP) Pulse Ox O2 Delivery O2 Flow Rate FiO2 04/30/18 08:50 154/74 04/30/18 08:50 110 154/74 04/30/18 08:11 97.7 110 20 154/74 (100) 97 04/30/18 07:16 105 22 99 Nasal Cannula 4.0 36 04/30/18 07:07 Room Air 04/30/18 07:07 98 Room Air 21 04/30/18 07:06 110 22 99 Room Air 21 04/30/18 05:29 108 18 98 Facial 40 04/30/18 04:00 97.9 111 20 160/76 (104) 97 04/30/18 04:00 102 04/30/18 03:47 109 22 99 Bi-pap 40 04/30/18 03:30 105 98 Bi-pap 40 04/30/18 03:30 105 16 98 Facial 40 04/30/18 01:12 112 22 98 Facial 40 04/30/18 00:00 98.5 113 17 159/96 (117) 98 04/30/18 00:00 110 04/29/18 23:26 109 22 99 Bi-pap 40 04/29/18 23:10 111 16 98 Facial 40 04/29/18 23:10 110 99 Bi-pap 40 04/29/18 21:00 Nasal Cannula 4.0 04/29/18 20:26 98 Nasal Cannula 4.0 36 04/29/18 20:26 Nasal Cannula 4.0 36 04/29/18 20:00 97.7 109 20 149/67 (94) 100 04/29/18 18:32 Bi-pap 04/29/18 18:28 Bi-pap 04/29/18 17:20 160/55 04/29/18 17:00 106 23 95 04/29/18 16:00 104 04/29/18 16:00 97.3 110 17 160/55 (90) 100 04/29/18 15:11 103 21 100 Bi-pap 40 04/29/18 15:02 105 21 100 Facial 40 04/29/18 14:59 105 21 100 Bi-pap 40 04/29/18 13:20 103 18 98 Facial 40 04/29/18 12:00 101 04/29/18 11:53 97.6 99 17 178/95 (122) 98 04/29/18 10:57 99 16 98 Bi-pap 40 04/29/18 10:43 101 28 98 Bi-pap 40 04/29/18 10:41 101 15 98 Facial 40 04/29/18 09:27 109 24 95 Facial 40 Intake and Output 04/29/18 04/30/18 19:00 07:00 Intake Total 918.880 ml 200 ml Output Total 4000 ml Balance -3081.120 ml 200 ml Intake Oral 540 ml 200 ml IV Total 378.880 ml Hemodialysis UF 4000 ml Laboratory Tests Test 04/29/18 14:30 White Blood Count 6.6 K/UL (4.8-10.8) Red Blood Count 2.59 M/UL (4.70-6.10) L Hemoglobin 7.4 G/DL (14.2-18.0) L Hematocrit 23.8 % (42.0-52.0) L Mean Corpuscular Volume 92 FL (80-99) Mean Corpuscular Hemoglobin 28.7 PG (27.0-31.0) Mean Corpuscular Hemoglobin Concent 31.3 G/DL (32.0-36.0) L Red Cell Distribution Width 19.1 % (11.6-14.8) H Platelet Count 89 K/UL (150-450) L Mean Platelet Volume 6.6 FL (6.5-10.1) Neutrophils (%) (Auto) % (45.0-75.0) Lymphocytes (%) (Auto) % (20.0-45.0) Monocytes (%) (Auto) % (1.0-10.0) Eosinophils (%) (Auto) % (0.0-3.0) Basophils (%) (Auto) % (0.0-2.0) Differential Total Cells Counted 100 Neutrophils % (Manual) 84 % (45-75) H Lymphocytes % (Manual) 5 % (20-45) L Monocytes % (Manual) 7 % (1-10) Eosinophils % (Manual) 3 % (0-3) Basophils % (Manual) 1 % (0-2) Band Neutrophils 0 % (0-8) Platelet Estimate Decreased L Platelet Morphology Normal Hypochromasia 2+ Anisocytosis 2+ Prothrombin Time 18.9 SEC (9.30-11.50) H Prothromb Time International Ratio 1.9 (0.9-1.1) H Activated Partial Thromboplast Time 81 SEC (23-33) H Sodium Level 132 MMOL/L (136-145) L Potassium Level 5.5 MMOL/L (3.5-5.1) H Chloride Level 94 MMOL/L (98-107) L Carbon Dioxide Level 25 MMOL/L (21-32) Anion Gap 13 mmol/L (5-15) Blood Urea Nitrogen 84 mg/dL (7-18) H Creatinine 9.4 MG/DL (0.55-1.30) H Estimat Glomerular Filtration Rate 6.8 mL/min (>60) Glucose Level 120 MG/DL (74-106) H Calcium Level 9.5 MG/DL (8.5-10.1) Phosphorus Level 8.6 MG/DL (2.5-4.9) H Random Vancomycin Level 19.6 ug/mL Objective HEAD AND NECK: positive JVD.On BIPAP LUNGS: Decreased breath sounds. CARDIOVASCULAR: Regular S1 and S2 with no gallop. ABDOMEN: Soft. EXTREMITIES: Status post multiple amputations, 2+ lower extremity edema. Left foot amputated Shelton Perdomo MD Apr 30, 2018 09:23
[2018-04-30 10:54] LABS: HEMATOCRIT 25.9 % (42.0-52.0); MEAN CORPUSCULAR VOLUME 93 FL (80-99); PLATELET COUNT 101 K/UL (150-450); WHITE BLOOD COUNT 6.1 K/UL (4.8-10.8)
[2018-04-30 11:00] LABS: ANION GAP 12 mmol/L (5-15); BLOOD UREA NITROGEN 70 mg/dL (7-18); CALCIUM 9.7 MG/DL (8.5-10.1); CARBON DIOXIDE 28 MMOL/L (21-32); CHLORIDE 95 MMOL/L (98-107); CREATININE 8.4 MG/DL (0.55-1.30); POTASSIUM 5.6 MMOL/L (3.5-5.1); SODIUM 135 MMOL/L (136-145)
--- NOTE | 2018-04-30 11:28 | Pulmonology Progress Note ---
Assessment/Plan Assessment/Plan Problem List: 1. Diabetic foot infection 2. Acute diastolic CHF exacerbation/pulmonary edema 3. COPD w/o obvious exacerbation 4. CHU 5. ESRD on HD 6. Hx multiple amputations 7. Thrombocytopenia 8. Anemia 9. L leg DVT 10. HTN - uncontrolled Plan: Abx per ID Podiatric wound care/debridement as needed Monitor volumes, cont volume removed with HD Aggressive BP control Duonebs q6 Cont CPAP 10 cm H2O Heparin gtt with transition to coumadin underway Platelets improving No plans for IVC filter Subjective ROS Limited/Unobtainable: Yes Interval Events: Platelets rising. Coumadin started. Sleeping with CPAP Allergies: Coded Allergies: NO KNOWN DRUG ALLERGIES (Verified Allergy, Unknown, 03/06/18) All Systems: reviewed and negative except above Objective Last 24 Hour Vital Signs Date Time Temp Pulse Resp B/P (MAP) Pulse Ox O2 Delivery O2 Flow Rate FiO2 04/30/18 11:04 102 24 99 Bi-pap 40 04/30/18 09:20 97.7 04/30/18 09:00 Nasal Cannula 4.0 04/30/18 08:50 154/74 04/30/18 08:50 110 154/74 04/30/18 08:11 97.7 110 20 154/74 (100) 97 04/30/18 07:16 105 22 99 Nasal Cannula 4.0 36 04/30/18 07:07 Room Air 04/30/18 07:07 98 Room Air 21 04/30/18 07:06 110 22 99 Room Air 21 04/30/18 05:29 108 18 98 Facial 40 04/30/18 04:00 97.9 111 20 160/76 (104) 97 04/30/18 04:00 102 04/30/18 03:47 109 22 99 Bi-pap 40 04/30/18 03:30 105 98 Bi-pap 40 04/30/18 03:30 105 16 98 Facial 40 04/30/18 01:12 112 22 98 Facial 40 04/30/18 00:00 98.5 113 17 159/96 (117) 98 04/30/18 00:00 110 04/29/18 23:26 109 22 99 Bi-pap 40 04/29/18 23:10 111 16 98 Facial 40 04/29/18 23:10 110 99 Bi-pap 40 04/29/18 21:00 Nasal Cannula 4.0 04/29/18 20:26 98 Nasal Cannula 4.0 36 04/29/18 20:26 Nasal Cannula 4.0 36 04/29/18 20:00 97.7 109 20 149/67 (94) 100 04/29/18 18:32 Bi-pap 04/29/18 18:28 Bi-pap 04/29/18 17:20 160/55 04/29/18 17:00 106 23 95 04/29/18 16:00 104 04/29/18 16:00 97.3 110 17 160/55 (90) 100 04/29/18 15:11 103 21 100 Bi-pap 40 04/29/18 15:02 105 21 100 Facial 40 04/29/18 14:59 105 21 100 Bi-pap 40 04/29/18 13:20 103 18 98 Facial 40 04/29/18 12:00 101 04/29/18 11:53 97.6 99 17 178/95 (122) 98 Intake and Output 04/29/18 04/30/18 19:00 07:00 Intake Total 918.880 ml 200 ml Output Total 4000 ml Balance -3081.120 ml 200 ml Intake Oral 540 ml 200 ml IV Total 378.880 ml Hemodialysis UF 4000 ml General Appearance: WD/WN, no acute distress Respiratory/Chest: lungs clear, crackles/rales Cardiovascular: normal rate, regular rhythm Abdomen: normal bowel sounds, soft, non tender Extremities: other - improved edema Laboratory Tests 04/29/18 14:30: White Blood Count 6.6, Red Blood Count 2.59L, Hemoglobin 7.4L, Hematocrit 23.8L , Mean Corpuscular Volume 92, Mean Corpuscular Hemoglobin 28.7, Mean Corpuscular Hemoglobin Concent 31.3L, Red Cell Distribution Width 19.1H, Platelet Count 89L, Mean Platelet Volume 6.6, Neutrophils (%) (Auto) , Lymphocytes (%) (Auto) , Monocytes (%) (Auto) , Eosinophils (%) (Auto) , Basophils (%) (Auto) , Differential Total Cells Counted 100, Neutrophils % ( Manual) 84H, Lymphocytes % (Manual) 5L, Monocytes % (Manual) 7, Eosinophils % ( Manual) 3, Basophils % (Manual) 1, Band Neutrophils 0, Platelet Estimate DecreasedL, Platelet Morphology Normal, Hypochromasia 2+, Anisocytosis 2+, Prothrombin Time 18.9H, Prothromb Time International Ratio 1.9H, Activated Partial Thromboplast Time 81H, Sodium Level 132L, Potassium Level 5.5H, Chloride Level 94L, Carbon Dioxide Level 25, Anion Gap 13, Blood Urea Nitrogen 84H, Creatinine 9.4H, Estimat Glomerular Filtration Rate 6.8, Glucose Level 120H , Calcium Level 9.5, Phosphorus Level 8.6H, Random Vancomycin Level 19.6 04/30/18 10:20: White Blood Count 6.1, Red Blood Count 2.80L, Hemoglobin 8.0L, Hematocrit 25.9L , Mean Corpuscular Volume 93, Mean Corpuscular Hemoglobin 28.6, Mean Corpuscular Hemoglobin Concent 30.8L, Red Cell Distribution Width 19.0H, Platelet Count 101L, Mean Platelet Volume 8.3, Neutrophils (%) (Auto) , Lymphocytes (%) (Auto) , Monocytes (%) (Auto) , Eosinophils (%) (Auto) , Basophils (%) (Auto) , Neutrophils % (Manual) [Pending], Lymphocytes % (Manual) [Pending], Platelet Estimate [Pending], Platelet Morphology [Pending], Prothrombin Time 20.4H, Prothromb Time International Ratio 2.0H, Activated Partial Thromboplast Time 74H, Sodium Level 135L, Potassium Level 5.6H, Chloride Level 95L, Carbon Dioxide Level 28, Anion Gap 12, Blood Urea Nitrogen 70H, Creatinine 8.4H, Estimat Glomerular Filtration Rate 7.8, Glucose Level 134H , Calcium Level 9.7 Current Medications Medications (Trade) Dose Ordered Sig/Oliverio Route PRN Reason Start Time Stop Time Status Last Admin Dose Admin Acetaminophen (Tylenol) 650 mg Q6H PRN ORAL Mild Pain/Temp > 100.5 04/28/18 13:57 05/23/18 13:56 Acetaminophen/ Hydrocodone Bitart ([place] 10/325) 1 tab Q6H PRN ORAL For Pain 04/29/18 12:24 05/07/18 12:23 04/30/18 08:50 Albuterol/ Ipratropium (Albuterol/ Ipratropium) 3 ml Q4HRT HHN 04/29/18 23:00 05/04/18 22:59 04/30/18 11:04 Allopurinol (Zyloprim) 100 mg DAILY ORAL 04/29/18 09:00 05/24/18 08:59 04/30/18 08:51 Amlodipine Besylate (Norvasc) 5 mg DAILY ORAL 04/29/18 09:00 05/24/18 08:59 04/30/18 08:50 Calcium Carbonate (Tums) 500 mg TIDPRN PRN ORAL Nausea & Vomiting/Dyspepsia 04/28/18 14:00 05/26/18 13:59 Clonidine HCl (Catapres tab) 0.2 mg BID ORAL 04/28/18 18:00 05/23/18 22:29 04/30/18 08:50 Dextrose (Dextrose 50%) 25 ml Q30M PRN IV Hypoglycemia 04/28/18 14:00 05/23/18 22:59 Dextrose (Dextrose 50%) 50 ml Q30M PRN IV Hypoglycemia 04/28/18 14:00 05/23/18 22:59 Docusate Sodium (Colace) 100 mg TWICE A DAY ORAL 04/28/18 18:00 05/24/18 08:59 04/30/18 08:50 Epoetin Yung (Procrit (for ESRD on dialysis)) 7,000 units MON-WED-SUN SUBQ 04/29/18 21:00 05/29/18 20:59 04/29/18 21:23 Finasteride (Proscar) 5 mg DAILY ORAL 04/29/18 09:00 05/24/18 08:59 04/30/18 08:41 Gabapentin (Neurontin) 300 mg DAILY ORAL 04/29/18 09:00 05/24/18 08:59 04/30/18 08:41 Heparin Sodium/ Dextrose 500 ml @ 37.888 mls/ hr ADJUST PER PROTOCOL IV 04/28/18 13:57 05/28/18 13:56 04/29/18 23:31 Insulin Aspart (NovoLOG) BEFORE MEALS AND HS SUBQ 04/28/18 16:30 05/24/18 06:29 04/29/18 16:29 Iron Sucrose 100 mg/Sodium Chloride 60 ml @ 240 mls/hr BEDTIME IV 04/28/18 21:00 05/01/18 21:14 04/29/18 21:22 Meropenem 500 mg/ Sodium Chloride 55 ml @ 110 mls/hr Q24H IVPB 04/28/18 21:00 05/02/18 20:59 04/29/18 21:22 Moxifloxacin HCl (Vigamox) 1 drop Q8HR BOTH EYES 04/28/18 14:00 05/04/18 13:59 04/30/18 06:00 Pantoprazole (Protonix) 40 mg DAILY IVP 04/29/18 09:00 05/24/18 08:59 04/30/18 08:50 Tamsulosin HCl (Flomax) 0.4 mg BEDTIME ORAL 04/28/18 21:00 05/23/18 23:44 04/29/18 21:21 Vancomycin HCl (Vanco rx to dose) 1 ea DAILY PRN MISC Per rx protocol 04/29/18 09:00 05/23/18 18:14 Vitamin B Complex/ Vit C/Folic Acid (Nephrovite) 1 tab DAILY ORAL 04/29/18 09:00 05/26/18 08:59 04/30/18 08:41 Warfarin Sodium (Coumadin per pharmacy) 1 ea DAILY PRN MISC Per rx protocol 04/29/18 08:15 05/29/18 08:14 Warfarin Sodium (Coumadin) 4 mg COUMADIN ONCE PO 04/30/18 17:00 04/30/18 17:01 Tyrel Platt MD Apr 30, 2018 11:28
[2018-04-30 12:00] VITALS: BP 117/102
[2018-04-30] MEDS: Heparin 25,000u/D5W 500ml 500 ML IV SCH (13:56)
--- NOTE | 2018-04-30 14:39 | Nephrology Progress Note ---
Assessment/Plan Problem List: (1) ESRD (end stage renal disease) (2) Diabetic infection of left foot (3) Acute DVT (deep venous thrombosis) Assessment: LLE (4) PVD (peripheral vascular disease) (5) Anemia Assessment: better (6) Iron deficiency (7) Thrombocytopenia Assessment: better (8) HTN (hypertension) Assessment: better Plan HD tomorrow with UF as tolerated continue Epogen +IV Iron abxs anticoagulation follow labs Subjective Subjective feels better Objective Objective Last 24 Hour Vital Signs Date Time Temp Pulse Resp B/P (MAP) Pulse Ox O2 Delivery O2 Flow Rate FiO2 04/30/18 12:00 97.8 79 20 117/102 (107) 97 04/30/18 11:14 100 20 100 Bi-pap 40 04/30/18 11:04 102 24 99 Bi-pap 40 04/30/18 09:20 97.7 04/30/18 09:00 Nasal Cannula 4.0 04/30/18 08:50 154/74 04/30/18 08:50 110 154/74 04/30/18 08:11 97.7 110 20 154/74 (100) 97 04/30/18 07:16 105 22 99 Nasal Cannula 4.0 36 04/30/18 07:07 Room Air 04/30/18 07:07 98 Room Air 21 04/30/18 07:06 110 22 99 Room Air 21 04/30/18 05:29 108 18 98 Facial 40 04/30/18 04:00 97.9 111 20 160/76 (104) 97 04/30/18 04:00 102 04/30/18 03:47 109 22 99 Bi-pap 40 04/30/18 03:30 105 98 Bi-pap 40 04/30/18 03:30 105 16 98 Facial 40 04/30/18 01:12 112 22 98 Facial 40 04/30/18 00:00 98.5 113 17 159/96 (117) 98 04/30/18 00:00 110 04/29/18 23:26 109 22 99 Bi-pap 40 04/29/18 23:10 111 16 98 Facial 40 04/29/18 23:10 110 99 Bi-pap 40 04/29/18 21:00 Nasal Cannula 4.0 04/29/18 20:26 98 Nasal Cannula 4.0 36 04/29/18 20:26 Nasal Cannula 4.0 36 04/29/18 20:00 97.7 109 20 149/67 (94) 100 04/29/18 18:32 Bi-pap 04/29/18 18:28 Bi-pap 04/29/18 17:20 160/55 04/29/18 17:00 106 23 95 04/29/18 16:00 104 04/29/18 16:00 97.3 110 17 160/55 (90) 100 04/29/18 15:11 103 21 100 Bi-pap 40 04/29/18 15:02 105 21 100 Facial 40 04/29/18 14:59 105 21 100 Bi-pap 40 Intake and Output 04/29/18 04/30/18 19:00 07:00 Intake Total 918.880 ml 200 ml Output Total 4000 ml Balance -3081.120 ml 200 ml Intake Oral 540 ml 200 ml IV Total 378.880 ml Hemodialysis UF 4000 ml Laboratory Tests 04/30/18 10:20: White Blood Count 6.1, Red Blood Count 2.80L, Hemoglobin 8.0L, Hematocrit 25.9L , Mean Corpuscular Volume 93, Mean Corpuscular Hemoglobin 28.6, Mean Corpuscular Hemoglobin Concent 30.8L, Red Cell Distribution Width 19.0H, Platelet Count 101L, Mean Platelet Volume 8.3, Neutrophils (%) (Auto) , Lymphocytes (%) (Auto) , Monocytes (%) (Auto) , Eosinophils (%) (Auto) , Basophils (%) (Auto) , Differential Total Cells Counted 100, Neutrophils % ( Manual) 88H, Lymphocytes % (Manual) 3L, Monocytes % (Manual) 5, Eosinophils % ( Manual) 2, Basophils % (Manual) 0, Band Neutrophils 2, Platelet Estimate DecreasedL, Platelet Morphology Normal, Hypochromasia 2+, Anisocytosis 2+, Prothrombin Time 20.4H, Prothromb Time International Ratio 2.0H, Activated Partial Thromboplast Time 74H, Sodium Level 135L, Potassium Level 5.6H, Chloride Level 95L, Carbon Dioxide Level 28, Anion Gap 12, Blood Urea Nitrogen 70H, Creatinine 8.4H, Estimat Glomerular Filtration Rate 7.8, Glucose Level 134H , Calcium Level 9.7 Height (Feet): 5 Height (Inches): 7.00 Weight (Pounds): 232 Cardiovascular: normal rate Respiratory/Chest: lungs clear Extremities: moderate edema Johan Harper MD Apr 30, 2018 14:39
--- NOTE | 2018-04-30 15:12 | NUR ---
NURSE NOTES: I called [facility] [phone] and notify Gideon that patient has order for dialysis tomorrow per protocol
--- NOTE | 2018-04-30 15:27 | NUR ---
*-* DISCHARGE PLANNING PATIENT HAS BEEN REFERRED TO: TIFFANY HENAO P:[phone] F:[phone]
--- NOTE | 2018-04-30 15:45 | Infectious Diseases Prog Note ---
Assessment/Plan Problems: (1) Acute osteomyelitis of metatarsal bone of left foot Assessment & Plan: left stump wound grew MRSA and Enterobacter cloacae, will continue meropenem and vancomycin treatment for osteomyelitis of the left foot metatarsal bone for 6 weeks. continue local wound care and dressings change as per pattern maker programer. vascular recommended no revascularization at this point. will treat with iv antibiotics for 6 weeks for his left metatarsal osteomyelitis (2) Achilles tendon infection Assessment & Plan: with open wound, already on wide spectrum antibiotics coverage , continue local wound care and dressings change , podiatry is following (3) Diabetic foot infection Assessment & Plan: continue wide spectrum antibiotics , with tight glycemic control. (4) ESRD (end stage renal disease) Assessment & Plan: on HD , renal is following (5) PVD (peripheral vascular disease) Assessment & Plan: had vascular eval , no need for angioplasty of the left leg (6) Hepatitis B surface antigen positive Assessment & Plan: rule out active HBV infection, await viral load to confirm (7) Acute dyspnea Assessment & Plan: suspect fluids over load , monitor ABG, and CXR , continue BIPAP, pulmonary is following (8) Acute bacterial conjunctivitis Assessment & Plan: continue moxifloxacin eye drops for 5 days Subjective Constitutional: Reports: no symptoms HEENT: Reports: no symptoms Respiratory: Reports: no symptoms Breasts: Reports: no symptoms Cardiovascular: Reports: no symptoms Gastrointestinal/Abdominal: Reports: no symptoms Genitourinary: Reports: no symptoms Neurologic: Reports: no symptoms Psychiatric: Reports: no symptoms Skin: Reports: no symptoms Endocrine: Reports: no symptoms Hematologic: Reports: no symptoms Musculoskeletal: Reports: no symptoms Allergies: Coded Allergies: NO KNOWN DRUG ALLERGIES (Verified Allergy, Unknown, 03/06/18) Subjective he was still on BIPAP , with improvement of his SOB, feels ok over all with less pain and swelling in his left foot, no productive cough Objective Vital Signs Last 24 Hour Vital Signs Date Time Temp Pulse Resp B/P (MAP) Pulse Ox O2 Delivery O2 Flow Rate FiO2 04/30/18 15:13 103 22 96 Nasal Cannula 4.0 36 04/30/18 15:04 101 24 96 Nasal Cannula 4.0 36 04/30/18 12:00 97.8 79 20 117/102 (107) 97 04/30/18 12:00 101 04/30/18 11:14 100 20 100 Bi-pap 40 04/30/18 11:04 102 24 99 Bi-pap 40 04/30/18 09:20 97.7 04/30/18 09:00 Nasal Cannula 4.0 04/30/18 08:50 154/74 04/30/18 08:50 110 154/74 04/30/18 08:11 97.7 110 20 154/74 (100) 97 04/30/18 08:00 110 04/30/18 07:16 105 22 99 Nasal Cannula 4.0 36 04/30/18 07:07 Room Air 04/30/18 07:07 98 Room Air 21 04/30/18 07:06 110 22 99 Room Air 21 04/30/18 05:29 108 18 98 Facial 40 04/30/18 04:00 97.9 111 20 160/76 (104) 97 04/30/18 04:00 102 04/30/18 03:47 109 22 99 Bi-pap 40 04/30/18 03:30 105 98 Bi-pap 40 04/30/18 03:30 105 16 98 Facial 40 04/30/18 01:12 112 22 98 Facial 40 04/30/18 00:00 98.5 113 17 159/96 (117) 98 04/30/18 00:00 110 04/29/18 23:26 109 22 99 Bi-pap 40 04/29/18 23:10 111 16 98 Facial 40 04/29/18 23:10 110 99 Bi-pap 40 04/29/18 21:00 Nasal Cannula 4.0 04/29/18 20:26 98 Nasal Cannula 4.0 36 04/29/18 20:26 Nasal Cannula 4.0 36 04/29/18 20:00 97.7 109 20 149/67 (94) 100 04/29/18 18:32 Bi-pap 04/29/18 18:28 Bi-pap 04/29/18 17:20 160/55 04/29/18 17:00 106 23 95 04/29/18 16:00 104 04/29/18 16:00 97.3 110 17 160/55 (90) 100 Height (Feet): 5 Height (Inches): 7.00 Weight (Pounds): 232 General Appearance: WD/WN, no acute distress HEENT: normocephalic, atraumatic, anicteric, mucous membranes moist, PERRL Respiratory/Chest: chest wall non-tender, no respiratory distress, no accessory muscle use, decreased breath sounds, crackles/rales Cardiovascular: normal peripheral pulses, normal rate, regular rhythm, no gallop/murmur, no JVD Abdomen: normal bowel sounds, soft, non tender, no organomegaly, non distended , no mass, no scars Extremities: no cyanosis, no clubbing Skin: no rash, no lesions, ulcers Neurologic/Psychiatric: alert, oriented x 3, responsive Lymphatic: no neck adenopathy, no groin adenopathy Musculoskeletal: normal muscle bulk, no effusion Laboratory Tests Test 04/30/18 10:20 White Blood Count 6.1 K/UL (4.8-10.8) Red Blood Count 2.80 M/UL (4.70-6.10) L Hemoglobin 8.0 G/DL (14.2-18.0) L Hematocrit 25.9 % (42.0-52.0) L Mean Corpuscular Volume 93 FL (80-99) Mean Corpuscular Hemoglobin 28.6 PG (27.0-31.0) Mean Corpuscular Hemoglobin Concent 30.8 G/DL (32.0-36.0) L Red Cell Distribution Width 19.0 % (11.6-14.8) H Platelet Count 101 K/UL (150-450) L Mean Platelet Volume 8.3 FL (6.5-10.1) Neutrophils (%) (Auto) % (45.0-75.0) Lymphocytes (%) (Auto) % (20.0-45.0) Monocytes (%) (Auto) % (1.0-10.0) Eosinophils (%) (Auto) % (0.0-3.0) Basophils (%) (Auto) % (0.0-2.0) Differential Total Cells Counted 100 Neutrophils % (Manual) 88 % (45-75) H Lymphocytes % (Manual) 3 % (20-45) L Monocytes % (Manual) 5 % (1-10) Eosinophils % (Manual) 2 % (0-3) Basophils % (Manual) 0 % (0-2) Band Neutrophils 2 % (0-8) Platelet Estimate Decreased L Platelet Morphology Normal Hypochromasia 2+ Anisocytosis 2+ Prothrombin Time 20.4 SEC (9.30-11.50) H Prothromb Time International Ratio 2.0 (0.9-1.1) H Activated Partial Thromboplast Time 74 SEC (23-33) H Sodium Level 135 MMOL/L (136-145) L Potassium Level 5.6 MMOL/L (3.5-5.1) H Chloride Level 95 MMOL/L (98-107) L Carbon Dioxide Level 28 MMOL/L (21-32) Anion Gap 12 mmol/L (5-15) Blood Urea Nitrogen 70 mg/dL (7-18) H Creatinine 8.4 MG/DL (0.55-1.30) H Estimat Glomerular Filtration Rate 7.8 mL/min (>60) Glucose Level 134 MG/DL (74-106) H Calcium Level 9.7 MG/DL (8.5-10.1) Current Medications Medications (Trade) Dose Ordered Sig/Oliverio Route PRN Reason Start Time Stop Time Status Last Admin Dose Admin Acetaminophen (Tylenol) 650 mg Q6H PRN ORAL Mild Pain/Temp > 100.5 04/28/18 13:57 05/23/18 13:56 Acetaminophen/ Hydrocodone Bitart ([place] 10/325) 1 tab Q6H PRN ORAL For Pain 04/29/18 12:24 05/07/18 12:23 04/30/18 08:50 Albuterol/ Ipratropium (Albuterol/ Ipratropium) 3 ml Q4HRT HHN 04/29/18 23:00 05/04/18 22:59 04/30/18 15:04 Allopurinol (Zyloprim) 100 mg DAILY ORAL 04/29/18 09:00 05/24/18 08:59 04/30/18 08:51 Amlodipine Besylate (Norvasc) 5 mg DAILY ORAL 04/29/18 09:00 05/24/18 08:59 04/30/18 08:50 Calcium Carbonate (Tums) 500 mg TIDPRN PRN ORAL Nausea & Vomiting/Dyspepsia 04/28/18 14:00 05/26/18 13:59 Clonidine HCl (Catapres tab) 0.2 mg BID ORAL 04/28/18 18:00 05/23/18 22:29 04/30/18 08:50 Dextrose (Dextrose 50%) 25 ml Q30M PRN IV Hypoglycemia 04/28/18 14:00 05/23/18 22:59 Dextrose (Dextrose 50%) 50 ml Q30M PRN IV Hypoglycemia 04/28/18 14:00 05/23/18 22:59 Docusate Sodium (Colace) 100 mg TWICE A DAY ORAL 04/28/18 18:00 05/24/18 08:59 04/30/18 08:50 Epoetin Yung (Procrit (for ESRD on dialysis)) 7,000 units SUN-SUN-SUN SUBQ 04/29/18 21:00 05/29/18 20:59 04/29/18 21:23 Finasteride (Proscar) 5 mg DAILY ORAL 04/29/18 09:00 05/24/18 08:59 04/30/18 08:41 Gabapentin (Neurontin) 300 mg DAILY ORAL 04/29/18 09:00 05/24/18 08:59 04/30/18 08:41 Heparin Sodium (Porcine) (Heparin Sod 1000 units/ml 10ml) 500 unit ONCE IV 05/01/18 14:45 05/01/18 23:59 Heparin Sodium/ Dextrose 500 ml @ 37.888 mls/ hr ADJUST PER PROTOCOL IV 04/28/18 13:57 05/28/18 13:56 04/30/18 13:56 Insulin Aspart (NovoLOG) BEFORE MEALS AND HS SUBQ 04/28/18 16:30 05/24/18 06:29 04/30/18 12:26 Iron Sucrose 100 mg/Sodium Chloride 60 ml @ 240 mls/hr BEDTIME IV 04/28/18 21:00 05/01/18 21:14 04/29/18 21:22 Meropenem 500 mg/ Sodium Chloride 55 ml @ 110 mls/hr Q24H IVPB 04/28/18 21:00 05/02/18 20:59 04/29/18 21:22 Moxifloxacin HCl (Vigamox) 1 drop Q8HR BOTH EYES 04/28/18 14:00 05/04/18 13:59 04/30/18 13:48 Pantoprazole (Protonix) 40 mg DAILY IVP 04/29/18 09:00 05/24/18 08:59 04/30/18 08:50 Sodium Chloride 1,000 ml @ 500 mls/hr Q2H PRN IVLG sbp<90 during hd 05/01/18 14:41 05/01/18 23:59 Tamsulosin HCl (Flomax) 0.4 mg BEDTIME ORAL 04/28/18 21:00 05/23/18 23:44 04/29/18 21:21 Vancomycin HCl (Vanco rx to dose) 1 ea DAILY PRN MISC Per rx protocol 04/29/18 09:00 05/23/18 18:14 Vitamin B Complex/ Vit C/Folic Acid (Nephrovite) 1 tab DAILY ORAL 04/29/18 09:00 05/26/18 08:59 04/30/18 08:41 Warfarin Sodium (Coumadin per pharmacy) 1 ea DAILY PRN MISC Per rx protocol 04/29/18 08:15 05/29/18 08:14 Warfarin Sodium (Coumadin) 4 mg COUMADIN ONCE PO 04/30/18 17:00 04/30/18 17:01 Jaime Casey M.D. Apr 30, 2018 15:45
--- NOTE | 2018-04-30 15:46 | NUR ---
*-* DISCHARGE PLANNED PATIENT IS DISCHARGED TO: [facility] ROOM# 15-B SKILLED T: [phone] FOR NURSE TO NURSE REPORT [facility] HAS BEEN ARRANGED FOR [employer] AT [address] [id number] Addendum: 04/30/18 at 1553 by DEION LEVINE CM DISREGARD THIS NOT WRONG PATIENT
--- NOTE | 2018-04-30 15:52 | NUR ---
DISREGARD THIS NOTE WRONG PATIENT
[2018-04-30 16:08] VITALS: BP 172/102
[2018-04-30] MEDS ORDERED: Warfarin Sodium 4mg PO ONE (17:00)
--- NOTE | 2018-04-30 17:05 | General Progress Note ---
Assessment/Plan Assessment/Plan # DVT of the deep veins superficial and politeal of the left leg, thrombocytopenia likely due to hep B chronic status --> VQ scan shows low probability of PE --> remains with anemia and low platelets therefore contraindication for anticoagulation --> will hold off on IVC filter --> started on coumadin inr goal 2-3 --> Cards and pulm recs appreciated as well as renal, vasc # Thrombocytopenia -- plt goal >20k, transfuse as required, hepatitis B chronic infection --> plt trend in the 66k-->63k-->58k-->60k (likely chronic) --> hep B noted and if no change in plt, consider anticoagulation --> coumadin started # Anemia of iron deficiency --> started on iron and epogen (AGREE WITH RENAL) --> anemia panel has been reviewed --> hgb goal >7, transfuse as needed --> peripheral smear to be reviewed # Acute CHF exacerbation/pulmonary edema --> as per pulm # COPD w/o obvious exacerbation # CHU # ESRD on HD --> hd as per renal # Hx multiple amputations # Diabetic foot infection --> as per ID # Hepatitis B ++ Ag # Acute CHF exacerbation/pulmonary edema # COPD w/o obvious exacerbation Time of note does not necessarily reflect time of encounter Greatly appreciate consultation! Subjective Constitutional: Denies: no symptoms, chills, diaphoresis, fever, malaise, weakness, other HEENT: Denies: no symptoms, eye pain, blurred vision, tearing, double vision, ear pain, ear discharge, nose pain, nose congestion, throat pain, throat swelling, mouth pain, mouth swelling, other Cardiovascular: Denies: no symptoms, chest pain, edema, irregular heart rate, lightheadedness, palpitations, syncope, other Respiratory: Denies: no symptoms, cough, orthopnea, shortness of breath, SOB with excertion, SOB at rest, sputum, stridor, wheezing, other Gastrointestinal/Abdominal: Denies: no symptoms, abdomen distended, abdominal pain, black stools, tarry stools, blood in stool, constipated, diarrhea, difficulty swallowing, nausea, poor appetite, poor fluid intake, rectal bleeding , vomiting, other Genitourinary: Denies: no symptoms, burning, discharge, frequency, flank pain, hematuria, incontinence, pain, urgency, other Neurologic/Psychiatric: Denies: no symptoms, anxiety, depressed, emotional problems, headache, numbness, paresthesia, pre-existing deficit, seizure, tingling, tremors, weakness, other Endocrine: Denies: no symptoms, excessive sweating, flushing, intolerance to cold, intolerance to heat, increased hunger, increased thirst, increased urine, unexplained weight gain, unexplained weight loss, other Hematologic/Lymphatic: Denies: no symptoms, anemia, easy bleeding, easy bruising, other Allergies: Coded Allergies: NO KNOWN DRUG ALLERGIES (Verified Allergy, Unknown, 03/06/18) Subjective 04/26: no events, potential plan for ivc f on sunday.12: no further ivc filter planned, started on coumadin inr goal 2-3 04/28: on iron and epogen dw Dr. Harper, continue as per his recs 04/29: awake and comfortable, HD today, On BIPAP and Oxygen. No new events. 04/30: Pt is seen by bedside, Platelets rising, 101 today. Coumadin started. Sleeping with BiPAP, HD tomorrow. Objective Last 24 Hour Vital Signs Date Time Temp Pulse Resp B/P (MAP) Pulse Ox O2 Delivery O2 Flow Rate FiO2 04/30/18 16:15 172/102 04/30/18 16:08 98.0 111 20 172/102 (125) 98 04/30/18 16:00 104 04/30/18 15:13 103 22 96 Nasal Cannula 4.0 36 04/30/18 15:04 101 24 96 Nasal Cannula 4.0 36 04/30/18 12:00 97.8 79 20 117/102 (107) 97 04/30/18 12:00 101 04/30/18 11:14 100 20 100 Bi-pap 40 04/30/18 11:04 102 24 99 Bi-pap 40 04/30/18 09:20 97.7 04/30/18 09:00 Nasal Cannula 4.0 04/30/18 08:50 154/74 04/30/18 08:50 110 154/74 04/30/18 08:11 97.7 110 20 154/74 (100) 97 04/30/18 08:00 110 04/30/18 07:16 105 22 99 Nasal Cannula 4.0 36 04/30/18 07:07 Room Air 04/30/18 07:07 98 Room Air 21 04/30/18 07:06 110 22 99 Room Air 21 04/30/18 05:29 108 18 98 Facial 40 04/30/18 04:00 97.9 111 20 160/76 (104) 97 04/30/18 04:00 102 04/30/18 03:47 109 22 99 Bi-pap 40 04/30/18 03:30 105 98 Bi-pap 40 04/30/18 03:30 105 16 98 Facial 40 04/30/18 01:12 112 22 98 Facial 40 04/30/18 00:00 98.5 113 17 159/96 (117) 98 04/30/18 00:00 110 04/29/18 23:26 109 22 99 Bi-pap 40 04/29/18 23:10 111 16 98 Facial 40 04/29/18 23:10 110 99 Bi-pap 40 04/29/18 21:00 Nasal Cannula 4.0 04/29/18 20:26 98 Nasal Cannula 4.0 36 04/29/18 20:26 Nasal Cannula 4.0 36 04/29/18 20:00 97.7 109 20 149/67 (94) 100 04/29/18 18:32 Bi-pap 04/29/18 18:28 Bi-pap 04/29/18 17:20 160/55 Intake and Output 04/29/18 04/30/18 18:59 06:59 Intake Total 918.880 ml 200 ml Output Total 4000 ml Balance -3081.120 ml 200 ml Intake Oral 540 ml 200 ml IV Total 378.880 ml Hemodialysis UF 4000 ml Laboratory Tests 04/30/18 10:20: White Blood Count 6.1, Red Blood Count 2.80L, Hemoglobin 8.0L, Hematocrit 25.9L , Mean Corpuscular Volume 93, Mean Corpuscular Hemoglobin 28.6, Mean Corpuscular Hemoglobin Concent 30.8L, Red Cell Distribution Width 19.0H, Platelet Count 101L, Mean Platelet Volume 8.3, Neutrophils (%) (Auto) , Lymphocytes (%) (Auto) , Monocytes (%) (Auto) , Eosinophils (%) (Auto) , Basophils (%) (Auto) , Differential Total Cells Counted 100, Neutrophils % ( Manual) 88H, Lymphocytes % (Manual) 3L, Monocytes % (Manual) 5, Eosinophils % ( Manual) 2, Basophils % (Manual) 0, Band Neutrophils 2, Platelet Estimate DecreasedL, Platelet Morphology Normal, Hypochromasia 2+, Anisocytosis 2+, Prothrombin Time 20.4H, Prothromb Time International Ratio 2.0H, Activated Partial Thromboplast Time 74H, Sodium Level 135L, Potassium Level 5.6H, Chloride Level 95L, Carbon Dioxide Level 28, Anion Gap 12, Blood Urea Nitrogen 70H, Creatinine 8.4H, Estimat Glomerular Filtration Rate 7.8, Glucose Level 134H , Calcium Level 9.7 Height (Feet): 5 Height (Inches): 7.00 Weight (Pounds): 232 Objective HEAD AND NECK: No JVD. LUNGS: Decreased breath sounds. CARDIOVASCULAR: Regular S1 and S2 with no gallop. ABDOMEN: Soft. EXTREMITIES: Status post multiple amputations, 2+ lower extremity edema. Juve Soto MD Apr 30, 2018 17:05
--- NOTE | 2018-04-30 19:38 | NUR ---
HAND-OFF: Report given to Anjelica POON.
--- NOTE | 2018-04-30 19:46 | NUR ---
NURSE NOTES: Received report from CLEVE Ramirez. Patient is awake lying high-rich's; resting comfortably. No signs of acute distress noted; denies pain at this time. On 4L nasal cannula. Checked IV sites; patent and flushed. No erythema, bleeding, or infiltration noted. Heparin drip running at 37.888 mls/hr for 18 units/kg/hr. Patient appears to be tolerating well; no adverse reaction noted. Left femoral AV shunt noted; thrill and bruit present. CPAP at bedside to be used as needed. Wound dressing on left foot dry and intact. Bed at lowest position, brakes on, siderails up x3. Call light within reach. Will continue to monitor.
[2018-04-30 20:00] VITALS: BP 160/87
--- NOTE | 2018-04-30 20:32 | NUR ---
RESPIRATORY NOTE: Pt wants to be on CPAP with current setting. There's no red outlet at the pt room which I notified pt RN Ladi and charge nurse Jocelyn to find one that has a red outlet.Foam tape on bridge of the nose. Will continue to monitor pt.
--- NOTE | 2018-04-30 20:46 | General Progress Note ---
Assessment/Plan Assessment/Plan Assessment - Heme (+) stools - Anemia and thrombocytopenia - DVT - on anticoagulation - Hep B S Ag (+) - DM - PVD - CHU - PVD - Poor Px Recommendations - Patient declined GI w/u - Will follow conservatively - Monitor CBC while on anticoagulation - Replace Fe IV - PPI - if H&H declines on anticoagulation, may need to reconsider IVC filter - Check HBV quantitative PCR Subjective Allergies: Coded Allergies: NO KNOWN DRUG ALLERGIES (Verified Allergy, Unknown, 03/06/18) Subjective No new issues overnight sitting in chair no abd complaints Objective Last 24 Hour Vital Signs Date Time Temp Pulse Resp B/P (MAP) Pulse Ox O2 Delivery O2 Flow Rate FiO2 04/30/18 20:06 109 22 99 Nasal Cannula 4.0 36 04/30/18 19:57 98 Nasal Cannula 4.0 36 04/30/18 19:57 Nasal Cannula 4.0 36 04/30/18 19:56 103 24 98 Nasal Cannula 4.0 36 04/30/18 16:15 172/102 04/30/18 16:08 98.0 111 20 172/102 (125) 98 04/30/18 16:00 104 04/30/18 15:13 103 22 96 Nasal Cannula 4.0 36 04/30/18 15:04 101 24 96 Nasal Cannula 4.0 36 04/30/18 12:00 97.8 79 20 117/102 (107) 97 04/30/18 12:00 101 04/30/18 11:14 100 20 100 Bi-pap 40 04/30/18 11:04 102 24 99 Bi-pap 40 04/30/18 09:20 97.7 04/30/18 09:00 Nasal Cannula 4.0 04/30/18 08:50 154/74 04/30/18 08:50 110 154/74 04/30/18 08:11 97.7 110 20 154/74 (100) 97 04/30/18 08:00 110 04/30/18 07:16 105 22 99 Nasal Cannula 4.0 36 04/30/18 07:07 Room Air 04/30/18 07:07 98 Room Air 21 04/30/18 07:06 110 22 99 Room Air 21 04/30/18 05:29 108 18 98 Facial 40 04/30/18 04:00 97.9 111 20 160/76 (104) 97 04/30/18 04:00 102 04/30/18 03:47 109 22 99 Bi-pap 40 04/30/18 03:30 105 98 Bi-pap 40 04/30/18 03:30 105 16 98 Facial 40 04/30/18 01:12 112 22 98 Facial 40 04/30/18 00:00 98.5 113 17 159/96 (117) 98 04/30/18 00:00 110 04/29/18 23:26 109 22 99 Bi-pap 40 04/29/18 23:10 111 16 98 Facial 40 04/29/18 23:10 110 99 Bi-pap 40 04/29/18 21:00 Nasal Cannula 4.0 Intake and Output 04/29/18 04/30/18 19:00 07:00 Intake Total 918.880 ml 200 ml Output Total 4000 ml Balance -3081.120 ml 200 ml Intake Oral 540 ml 200 ml IV Total 378.880 ml Hemodialysis UF 4000 ml Laboratory Tests 04/30/18 10:20: White Blood Count 6.1, Red Blood Count 2.80L, Hemoglobin 8.0L, Hematocrit 25.9L , Mean Corpuscular Volume 93, Mean Corpuscular Hemoglobin 28.6, Mean Corpuscular Hemoglobin Concent 30.8L, Red Cell Distribution Width 19.0H, Platelet Count 101L, Mean Platelet Volume 8.3, Neutrophils (%) (Auto) , Lymphocytes (%) (Auto) , Monocytes (%) (Auto) , Eosinophils (%) (Auto) , Basophils (%) (Auto) , Differential Total Cells Counted 100, Neutrophils % ( Manual) 88H, Lymphocytes % (Manual) 3L, Monocytes % (Manual) 5, Eosinophils % ( Manual) 2, Basophils % (Manual) 0, Band Neutrophils 2, Platelet Estimate DecreasedL, Platelet Morphology Normal, Hypochromasia 2+, Anisocytosis 2+, Prothrombin Time 20.4H, Prothromb Time International Ratio 2.0H, Activated Partial Thromboplast Time 74H, Sodium Level 135L, Potassium Level 5.6H, Chloride Level 95L, Carbon Dioxide Level 28, Anion Gap 12, Blood Urea Nitrogen 70H, Creatinine 8.4H, Estimat Glomerular Filtration Rate 7.8, Glucose Level 134H , Calcium Level 9.7 Height (Feet): 5 Height (Inches): 7.00 Weight (Pounds): 232 Objective Obese AA man NCAT barbara BS, power RR obese abd nonfocal Bee Krueger MD Apr 30, 2018 20:46
[2018-04-30] MEDS: Tamsulosin 0.4mg cap ORAL SCH (20:48)
[2018-04-30] MEDS: Iron Sucrose 100 MG in NS 55 ML IV SCH (20:48)
--- NOTE | 2018-04-30 21:12 | General Progress Note ---
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 hepatitis per heme will hold off on ivc filter coumadin per pharmacy fe deficiency anemia, started on iron and epo GI eval appreciated trasnfused with dialysis dialysis dependent pulmonary fup cards fup echo noted monior platelets hgb dvt and ulcer prohylaxis Subjective Allergies: Coded Allergies: NO KNOWN DRUG ALLERGIES (Verified Allergy, Unknown, 03/06/18) Subjective above noted some increased sob off cpap no cough no chest pain on heparin , recieved one unit prbc yesterday bp increased with transfusion, noow better Objective Last 24 Hour Vital Signs Date Time Temp Pulse Resp B/P (MAP) Pulse Ox O2 Delivery O2 Flow Rate FiO2 04/30/18 20:32 110 17 99 Facial 40 04/30/18 20:06 109 22 99 Nasal Cannula 4.0 36 04/30/18 19:57 98 Nasal Cannula 4.0 36 04/30/18 19:57 Nasal Cannula 4.0 36 04/30/18 19:56 103 24 98 Nasal Cannula 4.0 36 04/30/18 16:15 172/102 04/30/18 16:08 98.0 111 20 172/102 (125) 98 04/30/18 16:00 104 04/30/18 15:13 103 22 96 Nasal Cannula 4.0 36 04/30/18 15:04 101 24 96 Nasal Cannula 4.0 36 04/30/18 12:00 97.8 79 20 117/102 (107) 97 04/30/18 12:00 101 04/30/18 11:14 100 20 100 Bi-pap 40 04/30/18 11:04 102 24 99 Bi-pap 40 04/30/18 09:20 97.7 04/30/18 09:00 Nasal Cannula 4.0 04/30/18 08:50 154/74 04/30/18 08:50 110 154/74 04/30/18 08:11 97.7 110 20 154/74 (100) 97 1/15/19 08:00 110 04/30/18 07:16 105 22 99 Nasal Cannula 4.0 36 04/30/18 07:07 Room Air 04/30/18 07:07 98 Room Air 21 04/30/18 07:06 110 22 99 Room Air 21 04/30/18 05:29 108 18 98 Facial 40 04/30/18 04:00 97.9 111 20 160/76 (104) 97 04/30/18 04:00 102 04/30/18 03:47 109 22 99 Bi-pap 40 04/30/18 03:30 105 98 Bi-pap 40 04/30/18 03:30 105 16 98 Facial 40 04/30/18 01:12 112 22 98 Facial 40 04/30/18 00:00 98.5 113 17 159/96 (117) 98 04/30/18 00:00 110 04/29/18 23:26 109 22 99 Bi-pap 40 04/29/18 23:10 111 16 98 Facial 40 04/29/18 23:10 110 99 Bi-pap 40 Intake and Output 04/29/18 04/30/18 19:00 07:00 Intake Total 918.880 ml 200 ml Output Total 4000 ml Balance -3081.120 ml 200 ml Intake Oral 540 ml 200 ml IV Total 378.880 ml Hemodialysis UF 4000 ml Laboratory Tests 04/30/18 10:20: White Blood Count 6.1, Red Blood Count 2.80L, Hemoglobin 8.0L, Hematocrit 25.9L , Mean Corpuscular Volume 93, Mean Corpuscular Hemoglobin 28.6, Mean Corpuscular Hemoglobin Concent 30.8L, Red Cell Distribution Width 19.0H, Platelet Count 101L, Mean Platelet Volume 8.3, Neutrophils (%) (Auto) , Lymphocytes (%) (Auto) , Monocytes (%) (Auto) , Eosinophils (%) (Auto) , Basophils (%) (Auto) , Differential Total Cells Counted 100, Neutrophils % ( Manual) 88H, Lymphocytes % (Manual) 3L, Monocytes % (Manual) 5, Eosinophils % ( Manual) 2, Basophils % (Manual) 0, Band Neutrophils 2, Platelet Estimate DecreasedL, Platelet Morphology Normal, Hypochromasia 2+, Anisocytosis 2+, Prothrombin Time 20.4H, Prothromb Time International Ratio 2.0H, Activated Partial Thromboplast Time 74H, Sodium Level 135L, Potassium Level 5.6H, Chloride Level 95L, Carbon Dioxide Level 28, Anion Gap 12, Blood Urea Nitrogen 70H, Creatinine 8.4H, Estimat Glomerular Filtration Rate 7.8, Glucose Level 134H , Calcium Level 9.7 Height (Feet): 5 Height (Inches): 7.00 Weight (Pounds): 232 General Appearance: WD/WN, no apparent distress Neck: supple Cardiovascular: normal rate Respiratory/Chest: lungs clear Abdomen: soft Objective left lower extremity dressing intact clean no bleeding Moe Sewell MD Apr 30, 2018 21:12
[2018-04-30] MEDS: Meropenem 500 MG in NS 55 ML IVPB SCH (22:32)
[2018-05-01] VITALS (37 sets, daily range): BP systolic 95–167; BP diastolic 61–121
--- NOTE | 2018-05-01 00:22 | NUR ---
NURSE NOTES: Called Dr. Perdomo's exchange regarding patient having SVT for almost 30 minutes peaking at 167 heart rate and is now consistently in the 150s. Awaiting callback.
--- NOTE | 2018-05-01 01:43 | NUR ---
NURSE NOTES: Heparin drip held since patient is complaining of pain on left arm where IV access is located. Will attempt to establish new IV access.
--- NOTE | 2018-05-01 01:51 | NUR ---
NURSE NOTES: Called Dr. Perdomo's exchange a second time regarding patient having SVT with heart rate in the 150s. Awaiting callback.
--- NOTE | 2018-05-01 02:58 | NUR ---
NURSE NOTES: Called Dr. Perdomo regarding patient having SVT with heart rate of 150s. Received order to transfer patient to ICU and to put patient on Cardizem drip 10 mg/hr. Noted and carried out.
[2018-05-01] MEDS: Albuterol/Ipratropium 3ml neb HHN SCH ×3 (03:00→11:15)
--- NOTE | 2018-05-01 03:00 | NUR ---
NURSE NOTES: Patient transfered from telemetry d/t SVT. Patient placed onm Cardizem gtt at 10mg/hr. Patient also on Heparin gtt at 18units/kg/hr. Noted to have L Foot diabetic ulcer, transfer pictures taken. L FA 20G, R FA 20G and R Hand 24g. Patient has Acute and chronic DVT on L lower extremity, Heparin gtt for active DVT, No IVC filter per Vascular surgeon. Patient on Nasal canula at 4 L. Spo2 100%. Patient is SOB at times. Patient is AAOX4.
--- NOTE | 2018-05-01 03:31 | NUR ---
TRANSFER TO FLOOR: Report given to CLEVE Freitas. Patient was transferred to ICU from Telemetry unit via 2 staff member assist without incident. No signs of acute distress noted; denies pain at this time. Patient taken off Tele box; tolerated well. Belongings list checked with patient and receiving RN. Bed at lowest position, brakes on, siderails up x3.
--- NOTE | 2018-05-01 05:00 | NUR ---
NURSE NOTES: HR around 140s ST. Farfan gtt ongoing , labs drawn.
[2018-05-01 05:09] LABS: BASOPHILS % (AUTO) 1.7 % (0.0-2.0); EOSINOPHILS % (AUTO) 2.5 % (0.0-3.0); HEMATOCRIT 26.7 % (42.0-52.0); HEMOGLOBIN 8.1 G/DL (14.2-18.0); LYMPHOCYTES % (AUTO) 5.2 % (20.0-45.0); MEAN CORPUSCULAR VOLUME 93 FL (80-99); MONOCYTES % (AUTO) 7.2 % (1.0-10.0); NEUTROPHILS % (AUTO) 83.5 % (45.0-75.0); PLATELET COUNT 107 K/UL (150-450); RED BLOOD COUNT 2.87 M/UL (4.70-6.10); RED CELL DISTRIBUTION WIDTH 18.2 % (11.6-14.8); WHITE BLOOD COUNT 6.4 K/UL (4.8-10.8)
--- NOTE | 2018-05-01 05:27 | NUR ---
NURSE NOTES: Patient converted back to Sinus tachycardia. HR 104. SPo2 94% while on NC, Unable to lie flat, High fowlers.
[2018-05-01 05:36] LABS: INR 2.4 (0.9-1.1)
[2018-05-01 05:38] LABS: ANION GAP 12 mmol/L (5-15); BLOOD UREA NITROGEN 79 mg/dL (7-18); CALCIUM 9.5 MG/DL (8.5-10.1); CARBON DIOXIDE 27 MMOL/L (21-32); CHLORIDE 96 MMOL/L (98-107); CREATININE 9.4 MG/DL (0.55-1.30); POTASSIUM 5.8 MMOL/L (3.5-5.1); SODIUM 135 MMOL/L (136-145)
[2018-05-01] MEDS: Vigamox Opth Soln 3ml BOTH EYES SCH ×3 (05:47→22:00)
[2018-05-01] MEDS: NovoLOG Insulin Flexpen SUBQ SCH ×5 (05:53→23:02)
[2018-05-01] MEDS ORDERED: Heparin Sod 1000 units/ml 10ml IV ONE (06:30)
[2018-05-01] MEDS ORDERED: HYDROcodone/Acetamin 10/325 tab ORAL PRN (06:30)
[2018-05-01] MEDS: Heparin 25,000u/D5W 500ml 500 ML IV SCH ×3 (07:15→19:46)
[2018-05-01 07:28] LABS: PHOSPHORUS 9.2 MG/DL (2.5-4.9)
--- NOTE | 2018-05-01 07:32 | NUR ---
RESPIRATORY NOTE: Patient complaining of shortness of breath and was labored. Patient placed on CPAP and given inline breathing treatment with no adverse reaction noted. RN made aware. Will continue to monitor.
--- NOTE | 2018-05-01 07:40 | NUR ---
NURSE NOTES: Patient received from CLEVE Freitas. Patient observed bedside. Patient is laying in high fowlers position due to inability to lay flat because he becomes SOB easily. Patient is AAO x 4, able to make needs known, opens eyes spontaneously and follows commands. Patient does not appear in any acute distress. Patient reports that he is SOB when laying flat, and reports that he feels discomfort in his left UE. Patient is being monitored on the dry clipper tender. VS 152/77, HR 102, RR 21 SPO2 100%. Patient is on CPAP PS 10 with FIO2 30%. Patient tolerates it however, does become anxious and requests NC instead. RT and RN educated the patient the importance of the CPAP for O2 saturation. Patient is on a regular CCHO diet. Patient is anuric and afebrile. Patient has a LFA 20G, SHANIA 20G, RH 22G. Patient has 18 units of Heparin running. Patient has L foot Achilles/heel stage III wound and patient is very edematous. Patient is planned for HD tx today. Safety measures are in place with bed locked in the lowest position, HOB elevated to high fowlers with call light within reach. Will continue to monitor and follow plan of care.
[2018-05-01] MEDS: cloNIDine 0.2mg Tab ORAL SCH ×2 (09:00→19:01)
[2018-05-01] MEDS: Nephrovite tab (Rena-Vite) ORAL SCH (09:00)
[2018-05-01] MEDS: Allopurinol 100mg Tab ORAL SCH (09:00)
[2018-05-01] MEDS: Docusate 100mg cap ORAL SCH ×2 (09:46→19:01)
[2018-05-01] MEDS: Pantoprazole Inj IVP SCH (09:46)
--- NOTE | 2018-05-01 11:36 | Cardiac Electrophysiology PN ---
Assessment/Plan Status Narrative Normal left ventricular chamber size, systolic function and wall motion. Left ventricular ejection fraction estimated to be 60-65 %. Moderate left ventricular hypertrophy by 2-D. Small posterior pericardial effusion. Moderate left atrial enlargement. Mild right atrial enlargement. Right ventricular chamber size is within normal limits. Moderate aortic valve calcification with decreased cusp excursion c/w aortic stenosis. Moderately thickened mitral valve leaflets with normal excursion. Mitral annulus and aortic root calcification. Pulmonic valve not well visualized. Normal tricuspid valve structure. IVC dilated at 2.4 cm with slight physiologic collapse suggestive of in Assessment/Plan 1. Congestive heart failure. BNP of more than 35,000 on hemodialysis. EF 65% 2. Troponin elevation. Troponin of 0.057. It could be due to renal failure. The patient does not have any chest pain. Echocardiogram EF 65%. 3. Hypertension. On hemodialysis and clonidine 0.2 mg b.i.d. DC Norvasc as on Cardizem drip now 4. Sustained SVT at rate 170. Continue Cardizem drip 10 mg /hr. 5. Morbid obesity. 6. Peripheral vascular disease left metatarsal and finger amputations 7. Respiratory failure/ COPD. On BIPAP 8. Acute left leg DVT on heparin drip and Coumadin per Rx 9. Lower extremity cellulitis, on iv Abx per ID DW RN Subjective Subjective On BIPAP still SOB transferred to ICU for SVT rate 170. Converted to SR on Cardizem drip. Getting HD Objective Last 24 Hour Vital Signs Date Time Temp Pulse Resp B/P (MAP) Pulse Ox O2 Delivery O2 Flow Rate FiO2 05/01/18 11:16 95 12 98 Bi-pap 40 05/01/18 11:14 95 12 98 Facial 40 05/01/18 10:57 101 17 145/70 (95) 92 05/01/18 10:00 100 16 145/70 (95) 92 05/01/18 09:49 100 24 98 Facial 40 05/01/18 09:00 104 24 167/76 (106) 92 05/01/18 08:00 103 24 167/76 (106) 99 05/01/18 08:00 102 05/01/18 07:28 104 25 96 Facial 40 05/01/18 07:23 108 20 100 Bi-pap 40 05/01/18 07:13 108 20 92 Nasal Cannula 4.0 36 05/01/18 07:12 92 Nasal Cannula 4.0 36 05/01/18 07:11 Nasal Cannula 4.0 36 05/01/18 06:30 102 24 136/95 (109) 98 05/01/18 06:00 104 25 144/82 (102) 100 05/01/18 05:30 98.3 105 26 142/72 (95) 100 05/01/18 05:00 145 24 131/90 (104) 96 05/01/18 04:55 150 20 97 Facial 40 05/01/18 04:28 149 25 153/86 (108) 100 05/01/18 04:18 148 05/01/18 04:00 Nasal Cannula 4.0 Nasal Cannula 4.0 05/01/18 04:00 150 22 153/77 (102) 100 05/01/18 03:30 Bi-pap Bi-pap 05/01/18 03:21 Bi-pap 40 05/01/18 03:20 97.9 148 24 154/121 (132) 99 05/01/18 03:20 Bi-pap 40 05/01/18 03:00 149 153/77 05/01/18 00:54 149 21 98 Facial 40 05/01/18 00:00 98.0 150 20 106/77 (87) 99 05/01/18 00:00 109 04/30/18 23:38 167 04/30/18 23:35 102 21 99 Facial 40 04/30/18 23:04 106 22 100 Nasal Cannula 4.0 36 04/30/18 22:53 101 22 96 Nasal Cannula 4.0 36 04/30/18 22:50 106 18 98 Facial 40 04/30/18 21:00 Nasal Cannula 4.0 04/30/18 20:32 110 17 99 Facial 40 04/30/18 20:06 109 22 99 Nasal Cannula 4.0 36 04/30/18 20:00 110 04/30/18 20:00 97.8 111 24 160/87 (111) 94 04/30/18 19:57 98 Nasal Cannula 4.0 36 04/30/18 19:57 Nasal Cannula 4.0 36 04/30/18 19:56 103 24 98 Nasal Cannula 4.0 36 04/30/18 16:15 172/102 04/30/18 16:08 98.0 111 20 172/102 (125) 98 04/30/18 16:00 104 04/30/18 15:13 103 22 96 Nasal Cannula 4.0 36 04/30/18 15:04 101 24 96 Nasal Cannula 4.0 36 04/30/18 12:00 97.8 79 20 117/102 (107) 97 04/30/18 12:00 101 Intake and Output 04/30/18 05/01/18 19:00 07:00 Intake Total 487.888 ml 438.104 ml Output Total 0 ml Balance 487.888 ml 438.104 ml Intake Oral 450 ml IV Total 37.888 ml 438.104 ml Output Urine Total 0 ml # Bowel Movements 3 Laboratory Tests Test 05/01/18 04:30 White Blood Count 6.4 K/UL (4.8-10.8) Red Blood Count 2.87 M/UL (4.70-6.10) L Hemoglobin 8.1 G/DL (14.2-18.0) L Hematocrit 26.7 % (42.0-52.0) L Mean Corpuscular Volume 93 FL (80-99) Mean Corpuscular Hemoglobin 28.3 PG (27.0-31.0) Mean Corpuscular Hemoglobin Concent 30.4 G/DL (32.0-36.0) L Red Cell Distribution Width 18.2 % (11.6-14.8) H Platelet Count 107 K/UL (150-450) L Mean Platelet Volume 6.1 FL (6.5-10.1) L Neutrophils (%) (Auto) 83.5 % (45.0-75.0) H Lymphocytes (%) (Auto) 5.2 % (20.0-45.0) L Monocytes (%) (Auto) 7.2 % (1.0-10.0) Eosinophils (%) (Auto) 2.5 % (0.0-3.0) Basophils (%) (Auto) 1.7 % (0.0-2.0) Prothrombin Time 23.8 SEC (9.30-11.50) H Prothromb Time International Ratio 2.4 (0.9-1.1) H Activated Partial Thromboplast Time 89 SEC (23-33) H Sodium Level 135 MMOL/L (136-145) L Potassium Level 5.8 MMOL/L (3.5-5.1) H Chloride Level 96 MMOL/L (98-107) L Carbon Dioxide Level 27 MMOL/L (21-32) Anion Gap 12 mmol/L (5-15) Blood Urea Nitrogen 79 mg/dL (7-18) H Creatinine 9.4 MG/DL (0.55-1.30) H Estimat Glomerular Filtration Rate 6.8 mL/min (>60) Glucose Level 126 MG/DL (74-106) H Calcium Level 9.5 MG/DL (8.5-10.1) Phosphorus Level 9.2 MG/DL (2.5-4.9) H Random Vancomycin Level 19.1 ug/mL Objective HEAD AND NECK: Positive JVD.On BIPAP LUNGS: Decreased breath sounds. CARDIOVASCULAR: Regular S1 and S2 with no gallop. ABDOMEN: Soft. EXTREMITIES: Status post multiple amputations, 2+ lower extremity edema. Left foot amputated Shelton Perdomo MD May 01, 2018 11:36
--- NOTE | 2018-05-01 11:55 | NUR ---
NURSE NOTES: Patient observed bedside, laying high fowlers, AAO x4. Patient becomes SOB very easily when he lies flat. Patient does not appear in any acute distress. Patient is being monitored on the monitoring tech. VSS Patient is on CPAP PS 10 with FIO2 30%. Patient tolerates it however, does become anxious and requests to be put on Venti mask instead. Patient is anuric and afebrile. Patient has a LFA 20G, SHANIA 20G, RH 22G. Patient has 18 units of Heparin running and Cardizem 10 mg running. Patient is about to receive HD tx today. Safety measures are in place with bed locked in the lowest position, HOB elevated to high fowlers with call light within reach. Will continue to monitor and follow plan of care.
--- NOTE | 2018-05-01 12:23 | NUR ---
NURSE NOTES: HD tx has begun for patient. Patient became very anxious and screamed that he needed to get out of bed. Patient also stated that he could not breath. Patient was on the CPAP. Patient was shown his VS that showed he was with 100% SPO2 however patient insisted that he wanted back on Venti mask. Patient was returned on Venti and with the help of HD RN, patient was calmed. Patient was started on HD. Patient has very high anxiety. Dr Perdomo witnessed the outburst of the patient. Patient now calm and successfully placed on HD.
--- NOTE | 2018-05-01 12:24 | NUR ---
CASE MANAGEMENT: REVIEW SI: RESPIRATORY FAILURE . CHF . DIABETIC FOOT INFECTION . RENAL FAILURE ON DIALYSIS T 98.2 HR 110 RR 24 BP 167/79 SAT 98% BIPAP FIO2 45 H/H 8.1/26.7 NA 135 BUN 79 CR 9.4 IS: CARDIZEM IV Q24HR VENOFER IV QHS MEROPENEM IV Q24HR PROCRIT SQ MWF HEMODIALYSIS PRN ICU STATUS DCP: PATIENT IS FROM HOME
--- NOTE | 2018-05-01 13:30 | NUR ---
NURSE NOTES: Spoke to patient's regarding HEP B result. Patient's daughter wanted results however, explained that these results needed to be discussed with an MD not an RN and needed to be discussed with first. Discussed with was antibody was done and a that an MD would call her when one was available. was very understanding given how it can be transmitted between a couple. Per , she would speak to her daughter.
--- NOTE | 2018-05-01 13:46 | NUR ---
Nursing Chassis Driver NOTES: Called to unit by Primary RN Rachel, per RN daughter is requesting to speaking with Chassis Driver. Conversed with daughter regarding her concern of father having Hepatitis (per daughter she was informed by mother), daughter informed that Doctor is the first to inform patient/families of disease/diagnosis/treatment/prognosis etc, and Nurse educate. Daughter verbalized understanding of the aforementioned and verbalizes understanding. Additionally daughter not listed as a contact acid plant operator helper, informed Jenniffer (daughter) to attempt to contact next of Kin for additional information or Primary RN can assess patient to determine if he's able to consent to include her in treatment. Patient currently being dialyzed at this time & Contact Isolation observed. Rachel RN and Delilah POON (Charge Nurse) informed of conversation with Jenniffer.
[2018-05-01] MEDS ORDERED: Tums 500mg ORAL PRN (14:00)
--- NOTE | 2018-05-01 14:30 | NUR ---
NURSE NOTES: Dr Casey assessed patient bedside. Discussed HEP B issue. Per MD, he will call the of the patient to further discuss.
--- NOTE | 2018-05-01 14:35 | Pulmonolgy Critical Care Note ---
Critical Care - Asmt/Plan Assessment/Plan: Problem List: 1. Diabetic foot infection 2. Acute diastolic CHF exacerbation/pulmonary edema 3. COPD w/o obvious exacerbation 4. CHU 5. ESRD on HD 6. Hx multiple amputations 7. Thrombocytopenia 8. Anemia 9. L leg DVT 10. HTN - uncontrolled 11. SVT Plan: Monitor SVT in ICU, better on diltiazem gtt d/c duonebs, change to atrovent q6 monitor respirations on HD, likely pulm edema from sustained SVT CXR in AM Abx per ID Podiatric wound care/debridement as needed Monitor volumes, cont volume removed with HD Aggressive BP control Duonebs q6 Cont CPAP 10 cm H2O Heparin gtt with transition to coumadin underway Monitor platelets No plans for IVC filter Case d/w ID, cardiology, and [employer] CC Time: 35 min Critical Care - Objective Last 24 Hour Vital Signs Date Time Temp Pulse Resp B/P (MAP) Pulse Ox O2 Delivery O2 Flow Rate FiO2 05/01/18 14:00 104 21 163/79 (107) 97 05/01/18 13:30 104 21 158/82 (107) 98 05/01/18 13:00 104 21 161/78 (105) 97 05/01/18 12:37 105 20 95 05/01/18 12:30 100 21 154/85 (108) 98 05/01/18 12:00 98.2 101 22 167/79 (108) 97 05/01/18 12:00 101 05/01/18 11:30 99 24 151/80 (103) 93 05/01/18 11:26 110 22 100 Venturi Mask 45 05/01/18 11:16 95 12 98 Bi-pap 40 05/01/18 11:14 95 12 98 Facial 40 05/01/18 10:57 101 17 145/70 (95) 92 05/01/18 10:00 100 16 145/70 (95) 92 05/01/18 09:49 100 24 98 Facial 40 05/01/18 09:00 104 24 167/76 (106) 92 05/01/18 09:00 102 162/75 05/01/18 08:00 103 24 167/76 (106) 99 05/01/18 08:00 102 05/01/18 07:28 104 25 96 Facial 40 05/01/18 07:23 108 20 100 Bi-pap 40 05/01/18 07:13 108 20 92 Nasal Cannula 4.0 36 05/01/18 07:12 92 Nasal Cannula 4.0 36 05/01/18 07:11 Nasal Cannula 4.0 36 05/01/18 06:30 102 24 136/95 (109) 98 05/01/18 06:00 104 25 144/82 (102) 100 05/01/18 05:30 98.3 105 26 142/72 (95) 100 05/01/18 05:00 145 24 131/90 (104) 96 05/01/18 04:55 150 20 97 Facial 40 05/01/18 04:28 149 25 153/86 (108) 100 05/01/18 04:18 148 05/01/18 04:00 Nasal Cannula 4.0 Nasal Cannula 4.0 05/01/18 04:00 150 22 153/77 (102) 100 05/01/18 03:30 Bi-pap Bi-pap 05/01/18 03:21 Bi-pap 40 05/01/18 03:20 97.9 148 24 154/121 (132) 99 05/01/18 03:20 Bi-pap 40 05/01/18 03:00 149 153/77 05/01/18 00:54 149 21 98 Facial 40 05/01/18 00:00 98.0 150 20 106/77 (87) 99 05/01/18 00:00 109 04/30/18 23:38 167 04/30/18 23:35 102 21 99 Facial 40 04/30/18 23:04 106 22 100 Nasal Cannula 4.0 36 04/30/18 22:53 101 22 96 Nasal Cannula 4.0 36 04/30/18 22:50 106 18 98 Facial 40 04/30/18 21:00 Nasal Cannula 4.0 04/30/18 20:32 110 17 99 Facial 40 04/30/18 20:06 109 22 99 Nasal Cannula 4.0 36 04/30/18 20:00 110 04/30/18 20:00 97.8 111 24 160/87 (111) 94 04/30/18 19:57 98 Nasal Cannula 4.0 36 04/30/18 19:57 Nasal Cannula 4.0 36 04/30/18 19:56 103 24 98 Nasal Cannula 4.0 36 04/30/18 16:15 172/102 1/15/19 16:08 98.0 111 20 172/102 (125) 98 04/30/18 16:00 104 04/30/18 15:13 103 22 96 Nasal Cannula 4.0 36 04/30/18 15:04 101 24 96 Nasal Cannula 4.0 36 Status: awake Condition: improving HEENT: atraumatic, normocephalic Neck: full ROM Lungs: rales Heart: regular Abdomen: soft, non-tender Extremities: other - no edema. L foot wrapped Accucheck: 147 Critical Care - Subjective ROS Limited/Unobtainable: No Interval Events: Transferred to ICU for persistent SVT. Diltiazem gtt started, now sinus tachycardia. Was more short of breath. Better now on HD. No wheezing. Denies chest pain. Condition: stable EKG Rhythm: Sinus Tachycardia FI02: 45 Sputum Amount: None I&O: Intake and Output 04/30/18 05/01/18 19:00 07:00 Intake Total 487.888 ml 438.104 ml Output Total 0 ml Balance 487.888 ml 438.104 ml Intake Oral 450 ml IV Total 37.888 ml 438.104 ml Output Urine Total 0 ml # Bowel Movements 3 Labs: Reviewed Tyrel Platt MD May 01, 2018 14:35
[2018-05-01] MEDS ORDERED: Heparin Sod 1000 units/ml 10ml IV SCH (14:45)
[2018-05-01] MEDS ORDERED: NS 275ml ONE (14:56)
--- NOTE | 2018-05-01 15:43 | Infectious Diseases Prog Note ---
Assessment/Plan Problems: (1) Acute osteomyelitis of metatarsal bone of left foot Assessment & Plan: left stump wound grew MRSA and Enterobacter cloacae, will continue meropenem and vancomycin treatment for osteomyelitis of the left foot metatarsal bone for 6 weeks. continue local wound care and dressings change as per ammonia nitrate operator. vascular recommended no revascularization at this point. will treat with iv antibiotics for 6 weeks for his left metatarsal osteomyelitis (2) Achilles tendon infection Assessment & Plan: with open wound, already on wide spectrum antibiotics coverage , continue local wound care and dressings change , podiatry is following (3) Diabetic foot infection Assessment & Plan: continue wide spectrum antibiotics , with tight glycemic control. (4) ESRD (end stage renal disease) Assessment & Plan: on HD , renal is following (5) PVD (peripheral vascular disease) Assessment & Plan: had vascular eval , no need for angioplasty of the left leg as per vascular, on anticoagulation (6) Hepatitis B surface antigen positive Assessment & Plan: rule out active HBV infection, await viral load to confirm (7) Acute dyspnea Assessment & Plan: suspect fluids over load , monitor ABG, and CXR , continue BIPAP, pulmonary is following (8) Acute bacterial conjunctivitis Assessment & Plan: continue moxifloxacin eye drops for 5 days Subjective Constitutional: Reports: no symptoms HEENT: Reports: no symptoms Respiratory: Reports: dry cough Breasts: Reports: no symptoms Cardiovascular: Reports: no symptoms Gastrointestinal/Abdominal: Reports: no symptoms Genitourinary: Reports: no symptoms Neurologic: Reports: no symptoms Psychiatric: Reports: no symptoms Skin: Reports: no symptoms Endocrine: Reports: no symptoms Hematologic: Reports: no symptoms Musculoskeletal: Reports: no symptoms Allergies: Coded Allergies: NO KNOWN DRUG ALLERGIES (Verified Allergy, Unknown, 03/06/18) Subjective he was transferred to ICU for SVT over night, still on BIPAP, feels ok over all with less pain and swelling in his left foot, no productive cough Objective Vital Signs Last 24 Hour Vital Signs Date Time Temp Pulse Resp B/P (MAP) Pulse Ox O2 Delivery O2 Flow Rate FiO2 05/01/18 15:00 109 21 120/94 (103) 92 05/01/18 14:30 94 21 95/61 (72) 97 05/01/18 14:00 104 21 163/79 (107) 97 05/01/18 13:30 104 21 158/82 (107) 98 1/16/19 13:00 104 21 161/78 (105) 97 05/01/18 12:37 105 20 95 05/01/18 12:30 100 21 154/85 (108) 98 05/01/18 12:00 98.2 101 22 167/79 (108) 97 05/01/18 12:00 101 05/01/18 11:30 99 24 151/80 (103) 93 05/01/18 11:26 110 22 100 Venturi Mask 45 05/01/18 11:16 95 12 98 Bi-pap 40 05/01/18 11:14 95 12 98 Facial 40 05/01/18 10:57 101 17 145/70 (95) 92 05/01/18 10:00 100 16 145/70 (95) 92 05/01/18 09:49 100 24 98 Facial 40 05/01/18 09:00 104 24 167/76 (106) 92 05/01/18 09:00 102 162/75 05/01/18 08:00 103 24 167/76 (106) 99 05/01/18 08:00 102 05/01/18 07:28 104 25 96 Facial 40 05/01/18 07:23 108 20 100 Bi-pap 40 05/01/18 07:13 108 20 92 Nasal Cannula 4.0 36 05/01/18 07:12 92 Nasal Cannula 4.0 36 05/01/18 07:11 Nasal Cannula 4.0 36 05/01/18 06:30 102 24 136/95 (109) 98 05/01/18 06:00 104 25 144/82 (102) 100 05/01/18 05:30 98.3 105 26 142/72 (95) 100 05/01/18 05:00 145 24 131/90 (104) 96 05/01/18 04:55 150 20 97 Facial 40 05/01/18 04:28 149 25 153/86 (108) 100 05/01/18 04:18 148 05/01/18 04:00 Nasal Cannula 4.0 Nasal Cannula 4.0 05/01/18 04:00 150 22 153/77 (102) 100 05/01/18 03:30 Bi-pap Bi-pap 05/01/18 03:21 Bi-pap 40 05/01/18 03:20 97.9 148 24 154/121 (132) 99 05/01/18 03:20 Bi-pap 40 05/01/18 03:00 149 153/77 05/01/18 00:54 149 21 98 Facial 40 05/01/18 00:00 98.0 150 20 106/77 (87) 99 05/01/18 00:00 109 04/30/18 23:38 167 04/30/18 23:35 102 21 99 Facial 40 04/30/18 23:04 106 22 100 Nasal Cannula 4.0 36 04/30/18 22:53 101 22 96 Nasal Cannula 4.0 36 04/30/18 22:50 106 18 98 Facial 40 04/30/18 21:00 Nasal Cannula 4.0 04/30/18 20:32 110 17 99 Facial 40 04/30/18 20:06 109 22 99 Nasal Cannula 4.0 36 04/30/18 20:00 110 04/30/18 20:00 97.8 111 24 160/87 (111) 94 04/30/18 19:57 98 Nasal Cannula 4.0 36 04/30/18 19:57 Nasal Cannula 4.0 36 04/30/18 19:56 103 24 98 Nasal Cannula 4.0 36 04/30/18 16:15 172/102 04/30/18 16:08 98.0 111 20 172/102 (125) 98 04/30/18 16:00 104 Height (Feet): 5 Height (Inches): 7.00 Weight (Pounds): 299 General Appearance: WD/WN, no acute distress HEENT: normocephalic, atraumatic, anicteric, mucous membranes moist, PERRL, EOMI, pharynx normal, supple, no JVD Respiratory/Chest: chest wall non-tender, lungs clear, normal breath sounds, no respiratory distress, no accessory muscle use Cardiovascular: normal peripheral pulses, normal rate, regular rhythm, no gallop/murmur, no JVD Abdomen: normal bowel sounds, soft, non tender, no organomegaly, non distended , no mass, no scars Extremities: no cyanosis, no clubbing Skin: no rash, no lesions, ulcers Neurologic/Psychiatric: alert, oriented x 3, responsive Lymphatic: no neck adenopathy, no groin adenopathy Musculoskeletal: normal muscle bulk, no effusion Laboratory Tests Test 05/01/18 04:30 White Blood Count 6.4 K/UL (4.8-10.8) Red Blood Count 2.87 M/UL (4.70-6.10) L Hemoglobin 8.1 G/DL (14.2-18.0) L Hematocrit 26.7 % (42.0-52.0) L Mean Corpuscular Volume 93 FL (80-99) Mean Corpuscular Hemoglobin 28.3 PG (27.0-31.0) Mean Corpuscular Hemoglobin Concent 30.4 G/DL (32.0-36.0) L Red Cell Distribution Width 18.2 % (11.6-14.8) H Platelet Count 107 K/UL (150-450) L Mean Platelet Volume 6.1 FL (6.5-10.1) L Neutrophils (%) (Auto) 83.5 % (45.0-75.0) H Lymphocytes (%) (Auto) 5.2 % (20.0-45.0) L Monocytes (%) (Auto) 7.2 % (1.0-10.0) Eosinophils (%) (Auto) 2.5 % (0.0-3.0) Basophils (%) (Auto) 1.7 % (0.0-2.0) Prothrombin Time 23.8 SEC (9.30-11.50) H Prothromb Time International Ratio 2.4 (0.9-1.1) H Activated Partial Thromboplast Time 89 SEC (23-33) H Sodium Level 135 MMOL/L (136-145) L Potassium Level 5.8 MMOL/L (3.5-5.1) H Chloride Level 96 MMOL/L (98-107) L Carbon Dioxide Level 27 MMOL/L (21-32) Anion Gap 12 mmol/L (5-15) Blood Urea Nitrogen 79 mg/dL (7-18) H Creatinine 9.4 MG/DL (0.55-1.30) H Estimat Glomerular Filtration Rate 6.8 mL/min (>60) Glucose Level 126 MG/DL (74-106) H Calcium Level 9.5 MG/DL (8.5-10.1) Phosphorus Level 9.2 MG/DL (2.5-4.9) H Random Vancomycin Level 19.1 ug/mL Current Medications Medications (Trade) Dose Ordered Sig/Oliverio Route PRN Reason Start Time Stop Time Status Last Admin Dose Admin Acetaminophen (Tylenol) 650 mg Q6H PRN ORAL Mild Pain/Temp > 100.5 05/01/18 08:00 05/23/18 13:56 Acetaminophen/ Hydrocodone Bitart ([place] 10/325) 1 tab Q6H PRN ORAL For Pain 05/01/18 06:30 05/07/18 12:23 Allopurinol (Zyloprim) 100 mg DAILY ORAL 05/01/18 09:00 05/24/18 08:59 05/01/18 09:00 Amlodipine Besylate (Norvasc) 5 mg DAILY ORAL 05/01/18 09:00 05/24/18 08:59 Calcium Carbonate (Tums) 500 mg TIDPRN PRN ORAL Nausea & Vomiting/Dyspepsia 05/01/18 14:00 05/26/18 13:59 Clonidine HCl (Catapres tab) 0.2 mg BID ORAL 05/01/18 09:00 05/23/18 22:29 Dextrose (Dextrose 50%) 25 ml Q30M PRN IV Hypoglycemia 05/01/18 06:30 05/23/18 22:59 Dextrose (Dextrose 50%) 50 ml Q30M PRN IV Hypoglycemia 05/01/18 06:30 05/23/18 22:59 Diltiazem HCl 125 mg/Dextrose 125 ml @ 0 mls/hr Q24H IV 05/02/18 03:00 05/03/18 02:59 Docusate Sodium (Colace) 100 mg TWICE A DAY ORAL 05/01/18 09:00 05/24/18 08:59 05/01/18 09:46 Epoetin Yung (Procrit (for ESRD on dialysis)) 7,000 units SUN-SUN-SUN SUBQ 05/01/18 21:00 05/29/18 20:59 Finasteride (Proscar) 5 mg DAILY ORAL 05/01/18 09:00 05/24/18 08:59 05/01/18 09:00 Gabapentin (Neurontin) 300 mg DAILY ORAL 05/01/18 09:00 05/24/18 08:59 05/01/18 09:00 Heparin Sodium/ Dextrose 500 ml @ 37.888 mls/ hr ADJUST PER PROTOCOL IV 05/01/18 13:57 05/28/18 13:56 05/01/18 07:36 Insulin Aspart (NovoLOG) BEFORE MEALS AND HS SUBQ 05/01/18 06:30 05/24/18 06:29 05/01/18 06:30 Ipratropium [place] (Atrovent) 500 mcg Q4HRT HHN 05/01/18 15:00 05/06/18 14:59 Iron Sucrose 100 mg/Sodium Chloride 60 ml @ 240 mls/hr BEDTIME IV 05/01/18 21:00 05/01/18 21:14 Meropenem 500 mg/ Sodium Chloride 55 ml @ 110 mls/hr Q24H IVPB 05/01/18 21:00 06/04/18 23:00 Moxifloxacin HCl (Vigamox) 1 drop Q8HR BOTH EYES 05/01/18 14:00 05/04/18 13:59 Pantoprazole (Protonix) 40 mg DAILY IVP 05/01/18 09:00 05/24/18 08:59 05/01/18 09:46 Sodium Chloride 1,000 ml @ 500 mls/hr Q2H PRN IVLG sbp<90 during hd 05/01/18 14:41 05/01/18 23:59 Tamsulosin HCl (Flomax) 0.4 mg BEDTIME ORAL 05/01/18 21:00 05/23/18 23:44 Vancomycin HCl (Vanco rx to dose) 1 ea DAILY PRN MISC Per rx protocol 05/01/18 09:00 06/04/18 23:00 Vancomycin/Sodium Chloride 250 ml @ 166.667 mls/hr ONCE IVPB 05/01/18 18:00 05/01/18 19:00 Vitamin B Complex/ Vit C/Folic Acid (Nephrovite) 1 tab DAILY ORAL 05/01/18 09:00 05/26/18 08:59 05/01/18 09:00 Warfarin Sodium (Coumadin per pharmacy) 1 ea DAILY PRN MISC Per rx protocol 05/01/18 09:00 05/29/18 08:14 Warfarin Sodium (Coumadin) 4 mg COUMADIN PO 05/01/18 17:00 05/01/18 18:00 Jaime Casey M.D. May 01, 2018 15:43
[2018-05-01] MEDS: Ipratropium 0.02% Inh Soln 2.5ml UD HHN SCH ×3 (16:03→23:11)
--- NOTE | 2018-05-01 16:30 | NUR ---
NURSE NOTES: Patient observed bedside. Family is at bedside. Patient is laying in high fowlers position due to inability to lay flat because he becomes SOB easily. Patient is AAO x 4, able to make needs known, opens eyes spontaneously and follows commands. Patient does not appear in any acute distress except that when he takes off his venti mask he de-sats very quickly. Patient is being monitored on the quality assurance monitor final. VSS. Patient is on a regular CCHO diet. Patient ate 100% of his lunch. Patient is anuric and afebrile. Patient has 18 units of Heparin running and Cardizem 10 mg running. Patient had HD tx today and tolerated it very well taking out a total of 4L. Safety measures are in place with bed locked in the lowest position, HOB elevated to high fowlers with call light within reach. Will continue to monitor and follow plan of care.
[2018-05-01] MEDS ORDERED: Warfarin Sodium 4mg PO SCH (17:00)
--- NOTE | 2018-05-01 17:00 | NUR ---
NURSE NOTES: Patient was cleaned, repositioned and partial linen change. Patient became slightly SOB during process. Patient had a BM that was moderate in size and NL.
--- NOTE | 2018-05-01 17:37 | General Progress Note ---
Assessment/Plan Assessment/Plan # DVT of the deep veins superficial and politeal of the left leg, thrombocytopenia likely due to hep B chronic status --> VQ scan shows low probability of PE --> remains with anemia and low platelets therefore contraindication for anticoagulation --> will hold off on IVC filter --> started on coumadin inr goal 2-3 --> Cards and pulm recs appreciated as well as renal, vasc # Thrombocytopenia -- plt goal >20k, transfuse as required, hepatitis B chronic infection --> plt trend in the 66k-->63k-->58k-->60k (likely chronic) --> hep B noted and if no change in plt, consider anticoagulation --> coumadin started # Anemia of iron deficiency --> started on iron and epogen (AGREE WITH RENAL) --> anemia panel has been reviewed --> hgb goal >7, transfuse as needed --> peripheral smear to be reviewed # Acute CHF exacerbation/pulmonary edema --> as per pulm # COPD w/o obvious exacerbation # CHU # ESRD on HD --> hd as per renal # Hx multiple amputations # Diabetic foot infection --> as per ID # Hepatitis B ++ Ag # Acute CHF exacerbation/pulmonary edema # COPD w/o obvious exacerbation Time of note does not necessarily reflect time of encounter Greatly appreciate consultation! Subjective Allergies: Coded Allergies: NO KNOWN DRUG ALLERGIES (Verified Allergy, Unknown, 03/06/18) Subjective 04/26: no events, potential plan for ivc f on sunday.12: no further ivc filter planned, started on coumadin inr goal 2-3 04/28: on iron and epogen dw Dr. Harper, continue as per his recs 04/29: awake and comfortable, HD today, On BIPAP and Oxygen. No new events. 04/30: Pt is seen by bedside, Platelets rising, 101 today. Coumadin started. Sleeping with BiPAP, HD tomorrow. 05/01: Pt was transferred to ICU for SVT on BIPAP, complains of less pain and swelling in his left foot, getting HD. Objective Last 24 Hour Vital Signs Date Time Temp Pulse Resp B/P (MAP) Pulse Ox O2 Delivery O2 Flow Rate FiO2 05/01/18 17:30 104 139/81 05/01/18 17:00 107 21 138/81 (100) 96 05/01/18 16:34 Venturi Mask 05/01/18 16:30 105 22 158/89 (112) 96 05/01/18 16:13 102 20 100 Venturi Mask 45 05/01/18 16:03 106 16 97 Bi-pap 40 05/01/18 16:00 105 19 103/87 (92) 97 05/01/18 16:00 107 05/01/18 15:30 108 21 158/78 (104) 97 05/01/18 15:00 109 21 120/94 (103) 92 05/01/18 14:30 94 21 95/61 (72) 97 05/01/18 14:00 104 21 163/79 (107) 97 05/01/18 13:30 104 21 158/82 (107) 98 05/01/18 13:00 104 21 161/78 (105) 97 05/01/18 12:37 105 20 95 05/01/18 12:30 100 21 154/85 (108) 98 05/01/18 12:00 98.2 101 22 167/79 (108) 97 05/01/18 12:00 101 05/01/18 11:30 99 24 151/80 (103) 93 05/01/18 11:26 110 22 100 Venturi Mask 45 05/01/18 11:16 95 12 98 Bi-pap 40 05/01/18 11:14 95 12 98 Facial 40 05/01/18 10:57 101 17 145/70 (95) 92 05/01/18 10:00 100 16 145/70 (95) 92 05/01/18 09:49 100 24 98 Facial 40 05/01/18 09:00 104 24 167/76 (106) 92 05/01/18 09:00 102 162/75 05/01/18 08:00 103 24 167/76 (106) 99 05/01/18 08:00 102 05/01/18 07:28 104 25 96 Facial 40 05/01/18 07:23 108 20 100 Bi-pap 40 05/01/18 07:13 108 20 92 Nasal Cannula 4.0 36 05/01/18 07:12 92 Nasal Cannula 4.0 36 05/01/18 07:11 Nasal Cannula 4.0 36 05/01/18 06:30 102 24 136/95 (109) 98 05/01/18 06:00 104 25 144/82 (102) 100 05/01/18 05:30 98.3 105 26 142/72 (95) 100 05/01/18 05:00 145 24 131/90 (104) 96 05/01/18 04:55 150 20 97 Facial 40 05/01/18 04:28 149 25 153/86 (108) 100 05/01/18 04:18 148 05/01/18 04:00 Nasal Cannula 4.0 Nasal Cannula 4.0 05/01/18 04:00 150 22 153/77 (102) 100 05/01/18 03:30 Bi-pap Bi-pap 05/01/18 03:21 Bi-pap 40 05/01/18 03:20 97.9 148 24 154/121 (132) 99 05/01/18 03:20 Bi-pap 40 05/01/18 03:00 149 153/77 05/01/18 00:54 149 21 98 Facial 40 05/01/18 00:00 98.0 150 20 106/77 (87) 99 05/01/18 00:00 109 04/30/18 23:38 167 04/30/18 23:35 102 21 99 Facial 40 04/30/18 23:04 106 22 100 Nasal Cannula 4.0 36 04/30/18 22:53 101 22 96 Nasal Cannula 4.0 36 04/30/18 22:50 106 18 98 Facial 40 04/30/18 21:00 Nasal Cannula 4.0 04/30/18 20:32 110 17 99 Facial 40 04/30/18 20:06 109 22 99 Nasal Cannula 4.0 36 04/30/18 20:00 110 04/30/18 20:00 97.8 111 24 160/87 (111) 94 04/30/18 19:57 98 Nasal Cannula 4.0 36 04/30/18 19:57 Nasal Cannula 4.0 36 04/30/18 19:56 103 24 98 Nasal Cannula 4.0 36 Intake and Output 04/30/18 05/01/18 19:00 07:00 Intake Total 487.888 ml 438.104 ml Output Total 0 ml Balance 487.888 ml 438.104 ml Intake Oral 450 ml IV Total 37.888 ml 438.104 ml Output Urine Total 0 ml # Bowel Movements 3 Laboratory Tests 05/01/18 04:30: White Blood Count 6.4, Red Blood Count 2.87L, Hemoglobin 8.1L, Hematocrit 26.7L , Mean Corpuscular Volume 93, Mean Corpuscular Hemoglobin 28.3, Mean Corpuscular Hemoglobin Concent 30.4L, Red Cell Distribution Width 18.2H, Platelet Count 107L, Mean Platelet Volume 6.1L, Neutrophils (%) (Auto) 83.5H, Lymphocytes (%) (Auto) 5.2L, Monocytes (%) (Auto) 7.2, Eosinophils (%) (Auto) 2.5, Basophils (%) (Auto) 1.7, Prothrombin Time 23.8H, Prothromb Time International Ratio 2.4H, Activated Partial Thromboplast Time 89H, Sodium Level 135L, Potassium Level 5.8H, Chloride Level 96L, Carbon Dioxide Level 27, Anion Gap 12, Blood Urea Nitrogen 79H, Creatinine 9.4H, Estimat Glomerular Filtration Rate 6.8, Glucose Level 126H, Calcium Level 9.5, Phosphorus Level 9.2H, Random Vancomycin Level 19.1 Height (Feet): 5 Height (Inches): 7.00 Weight (Pounds): 299 Objective HEAD AND NECK: No JVD. LUNGS: Decreased breath sounds. CARDIOVASCULAR: Regular S1 and S2 with no gallop. ABDOMEN: Soft. EXTREMITIES: Status post multiple amputations, 2+ lower extremity edema. Juve Soto MD May 01, 2018 17:37
[2018-05-01] MEDS ORDERED: Vancomycin 750mg/NS 250ml IVPB SCH (18:00)
--- NOTE | 2018-05-01 19:21 | NUR ---
HAND-OFF: Report given to CLEVE Noriega. VSS and patient not in any acute distress.
--- NOTE | 2018-05-01 19:32 | Nephrology Progress Note ---
Assessment/Plan Problem List: (1) ESRD (end stage renal disease) (2) Diabetic infection of left foot (3) Acute DVT (deep venous thrombosis) Assessment: LLE (4) PVD (peripheral vascular disease) (5) Anemia Assessment: better (6) Iron deficiency (7) Thrombocytopenia Assessment: better (8) HTN (hypertension) Assessment: better Plan HD tomorrow again with UF as tolerated (dad 4 lit UF today) continue Epogen +IV Iron abxs anticoagulation follow labs Discussed with RN On cardizem will Dc Amlodipine Subjective Subjective In ICU for SVT Objective Objective Last 24 Hour Vital Signs Date Time Temp Pulse Resp B/P (MAP) Pulse Ox O2 Delivery O2 Flow Rate FiO2 05/01/18 19:01 152/80 05/01/18 18:30 109 22 152/80 (104) 89 05/01/18 18:00 111 21 151/93 (112) 92 05/01/18 17:30 106 21 161/77 (105) 93 05/01/18 17:30 104 139/81 05/01/18 17:00 107 21 138/81 (100) 96 05/01/18 16:34 Venturi Mask 05/01/18 16:30 105 22 158/89 (112) 96 05/01/18 16:13 102 20 100 Venturi Mask 45 05/01/18 16:03 106 16 97 Bi-pap 40 05/01/18 16:00 105 19 103/87 (92) 97 05/01/18 16:00 107 05/01/18 15:30 108 21 158/78 (104) 97 05/01/18 15:00 109 21 120/94 (103) 92 05/01/18 14:30 94 21 95/61 (72) 97 05/01/18 14:00 104 21 163/79 (107) 97 05/01/18 13:30 104 21 158/82 (107) 98 05/01/18 13:00 104 21 161/78 (105) 97 05/01/18 12:37 105 20 95 05/01/18 12:30 100 21 154/85 (108) 98 05/01/18 12:00 98.2 101 22 167/79 (108) 97 05/01/18 12:00 101 05/01/18 11:30 99 24 151/80 (103) 93 05/01/18 11:26 110 22 100 Venturi Mask 45 05/01/18 11:16 95 12 98 Bi-pap 40 05/01/18 11:14 95 12 98 Facial 40 05/01/18 10:57 101 17 145/70 (95) 92 05/01/18 10:00 100 16 145/70 (95) 92 05/01/18 09:49 100 24 98 Facial 40 05/01/18 09:00 104 24 167/76 (106) 92 05/01/18 09:00 102 162/75 05/01/18 08:00 103 24 167/76 (106) 99 05/01/18 08:00 102 05/01/18 07:28 104 25 96 Facial 40 05/01/18 07:23 108 20 100 Bi-pap 40 05/01/18 07:13 108 20 92 Nasal Cannula 4.0 36 05/01/18 07:12 92 Nasal Cannula 4.0 36 05/01/18 07:11 Nasal Cannula 4.0 36 05/01/18 06:30 102 24 136/95 (109) 98 05/01/18 06:00 104 25 144/82 (102) 100 05/01/18 05:30 98.3 105 26 142/72 (95) 100 05/01/18 05:00 145 24 131/90 (104) 96 05/01/18 04:55 150 20 97 Facial 40 05/01/18 04:28 149 25 153/86 (108) 100 05/01/18 04:18 148 05/01/18 04:00 Nasal Cannula 4.0 Nasal Cannula 4.0 05/01/18 04:00 150 22 153/77 (102) 100 05/01/18 03:30 Bi-pap Bi-pap 05/01/18 03:21 Bi-pap 40 05/01/18 03:20 97.9 148 24 154/121 (132) 99 05/01/18 03:20 Bi-pap 40 05/01/18 03:00 149 153/77 05/01/18 00:54 149 21 98 Facial 40 05/01/18 00:00 98.0 150 20 106/77 (87) 99 05/01/18 00:00 109 04/30/18 23:38 167 04/30/18 23:35 102 21 99 Facial 40 04/30/18 23:04 106 22 100 Nasal Cannula 4.0 36 04/30/18 22:53 101 22 96 Nasal Cannula 4.0 36 04/30/18 22:50 106 18 98 Facial 40 04/30/18 21:00 Nasal Cannula 4.0 04/30/18 20:32 110 17 99 Facial 40 04/30/18 20:06 109 22 99 Nasal Cannula 4.0 36 04/30/18 20:00 110 04/30/18 20:00 97.8 111 24 160/87 (111) 94 04/30/18 19:57 98 Nasal Cannula 4.0 36 04/30/18 19:57 Nasal Cannula 4.0 36 04/30/18 19:56 103 24 98 Nasal Cannula 4.0 36 Intake and Output 04/30/18 05/01/18 19:00 07:00 Intake Total 487.888 ml 438.104 ml Output Total 0 ml Balance 487.888 ml 438.104 ml Intake Oral 450 ml IV Total 37.888 ml 438.104 ml Output Urine Total 0 ml # Bowel Movements 3 Laboratory Tests 05/01/18 04:30: White Blood Count 6.4, Red Blood Count 2.87L, Hemoglobin 8.1L, Hematocrit 26.7L , Mean Corpuscular Volume 93, Mean Corpuscular Hemoglobin 28.3, Mean Corpuscular Hemoglobin Concent 30.4L, Red Cell Distribution Width 18.2H, Platelet Count 107L, Mean Platelet Volume 6.1L, Neutrophils (%) (Auto) 83.5H, Lymphocytes (%) (Auto) 5.2L, Monocytes (%) (Auto) 7.2, Eosinophils (%) (Auto) 2.5, Basophils (%) (Auto) 1.7, Prothrombin Time 23.8H, Prothromb Time International Ratio 2.4H, Activated Partial Thromboplast Time 89H, Sodium Level 135L, Potassium Level 5.8H, Chloride Level 96L, Carbon Dioxide Level 27, Anion Gap 12, Blood Urea Nitrogen 79H, Creatinine 9.4H, Estimat Glomerular Filtration Rate 6.8, Glucose Level 126H, Calcium Level 9.5, Phosphorus Level 9.2H, Random Vancomycin Level 19.1 Height (Feet): 5 Height (Inches): 7.00 Weight (Pounds): 299 Cardiovascular: normal rate Respiratory/Chest: lungs clear Extremities: moderate edema Rahban,Johan MD May 01, 2018 19:32
--- NOTE | 2018-05-01 20:00 | NUR ---
NURSE NOTES: pt awake and alert no c/o pain on b-pap c-pap 10 30 0/0 fio2 o2 sat 92-96 0/0 reposition himself no acute distress noted
--- NOTE | 2018-05-01 20:17 | NUR ---
RESPIRATORY NOTE: Pt asked to be placed on CPAP early. Pt now on CPAP 10, 45%. Pt refused to wear foam tape, so Protecta-Gel is used to protect pt's nosebridge/cheeks from mask irritations. Skin is intact, no breakdowns/redness noted upon placing mask. B/S hitesh. diminished. BiPAP plugged intor red outlet. Pt denies SOB/distress at this time. Will continue plan of care.
[2018-05-01] MEDS ORDERED: Tamsulosin 0.4mg cap ORAL SCH (21:00)
[2018-05-01] MEDS ORDERED: Iron Sucrose 100 MG in NS 55 ML IV SCH (21:00)
--- NOTE | 2018-05-01 21:08 | General Progress Note ---
Assessment/Plan Assessment/Plan Assessment - Heme (+) stools - Anemia and thrombocytopenia - DVT - on anticoagulation - Hep B S Ag (+) - DM - PVD - CHU - PVD - Poor Px Recommendations - Patient appropriately has declined GI w/u - Will follow conservatively - Monitor CBC while on anticoagulation - Replace Fe IV - PPI - if H&H declines on anticoagulation, may need to reconsider IVC filter - Check HBV quantitative PCR Subjective Allergies: Coded Allergies: NO KNOWN DRUG ALLERGIES (Verified Allergy, Unknown, 03/06/18) Subjective Now in ICU on FM at this time able to eat, but has to go slow and focus on breathing Objective Last 24 Hour Vital Signs Date Time Temp Pulse Resp B/P (MAP) Pulse Ox O2 Delivery O2 Flow Rate FiO2 05/01/18 20:14 103 20 97 Facial 45 05/01/18 19:32 110 24 100 Venturi Mask 45 05/01/18 19:22 97 Venturi Mask 10.0 45 05/01/18 19:22 Venturi Mask 10.0 45 05/01/18 19:22 104 22 97 Venturi Mask 45 05/01/18 19:01 152/80 05/01/18 18:30 109 22 152/80 (104) 89 05/01/18 18:00 111 21 151/93 (112) 92 05/01/18 17:30 106 21 161/77 (105) 93 05/01/18 17:30 104 139/81 05/01/18 17:00 107 21 138/81 (100) 96 05/01/18 16:34 Venturi Mask 05/01/18 16:30 105 22 158/89 (112) 96 05/01/18 16:13 102 20 100 Venturi Mask 45 05/01/18 16:03 106 16 97 Bi-pap 40 05/01/18 16:00 105 19 103/87 (92) 97 05/01/18 16:00 107 05/01/18 15:30 108 21 158/78 (104) 97 05/01/18 15:00 109 21 120/94 (103) 92 05/01/18 14:30 94 21 95/61 (72) 97 05/01/18 14:00 104 21 163/79 (107) 97 05/01/18 13:30 104 21 158/82 (107) 98 05/01/18 13:00 104 21 161/78 (105) 97 05/01/18 12:37 105 20 95 05/01/18 12:30 100 21 154/85 (108) 98 05/01/18 12:00 98.2 101 22 167/79 (108) 97 05/01/18 12:00 101 05/01/18 11:30 99 24 151/80 (103) 93 05/01/18 11:26 110 22 100 Venturi Mask 45 05/01/18 11:16 95 12 98 Bi-pap 40 05/01/18 11:14 95 12 98 Facial 40 05/01/18 10:57 101 17 145/70 (95) 92 05/01/18 10:00 100 16 145/70 (95) 92 05/01/18 09:49 100 24 98 Facial 40 05/01/18 09:00 104 24 167/76 (106) 92 05/01/18 09:00 102 162/75 05/01/18 08:00 103 24 167/76 (106) 99 05/01/18 08:00 102 05/01/18 07:28 104 25 96 Facial 40 05/01/18 07:23 108 20 100 Bi-pap 40 05/01/18 07:13 108 20 92 Nasal Cannula 4.0 36 05/01/18 07:12 92 Nasal Cannula 4.0 36 05/01/18 07:11 Nasal Cannula 4.0 36 05/01/18 06:30 102 24 136/95 (109) 98 05/01/18 06:00 104 25 144/82 (102) 100 05/01/18 05:30 98.3 105 26 142/72 (95) 100 05/01/18 05:00 145 24 131/90 (104) 96 05/01/18 04:55 150 20 97 Facial 40 05/01/18 04:28 149 25 153/86 (108) 100 05/01/18 04:18 148 05/01/18 04:00 Nasal Cannula 4.0 Nasal Cannula 4.0 05/01/18 04:00 150 22 153/77 (102) 100 05/01/18 03:30 Bi-pap Bi-pap 05/01/18 03:21 Bi-pap 40 05/01/18 03:20 97.9 148 24 154/121 (132) 99 1/16/19 03:20 Bi-pap 40 05/01/18 03:00 149 153/77 05/01/18 00:54 149 21 98 Facial 40 05/01/18 00:00 98.0 150 20 106/77 (87) 99 05/01/18 00:00 109 04/30/18 23:38 167 04/30/18 23:35 102 21 99 Facial 40 04/30/18 23:04 106 22 100 Nasal Cannula 4.0 36 04/30/18 22:53 101 22 96 Nasal Cannula 4.0 36 04/30/18 22:50 106 18 98 Facial 40 Intake and Output 04/30/18 05/01/18 19:00 07:00 Intake Total 487.888 ml 438.104 ml Output Total 0 ml Balance 487.888 ml 438.104 ml Intake Oral 450 ml IV Total 37.888 ml 438.104 ml Output Urine Total 0 ml # Bowel Movements 3 Laboratory Tests 05/01/18 04:30: White Blood Count 6.4, Red Blood Count 2.87L, Hemoglobin 8.1L, Hematocrit 26.7L , Mean Corpuscular Volume 93, Mean Corpuscular Hemoglobin 28.3, Mean Corpuscular Hemoglobin Concent 30.4L, Red Cell Distribution Width 18.2H, Platelet Count 107L, Mean Platelet Volume 6.1L, Neutrophils (%) (Auto) 83.5H, Lymphocytes (%) (Auto) 5.2L, Monocytes (%) (Auto) 7.2, Eosinophils (%) (Auto) 2.5, Basophils (%) (Auto) 1.7, Prothrombin Time 23.8H, Prothromb Time International Ratio 2.4H, Activated Partial Thromboplast Time 89H, Sodium Level 135L, Potassium Level 5.8H, Chloride Level 96L, Carbon Dioxide Level 27, Anion Gap 12, Blood Urea Nitrogen 79H, Creatinine 9.4H, Estimat Glomerular Filtration Rate 6.8, Glucose Level 126H, Calcium Level 9.5, Phosphorus Level 9.2H, Random Vancomycin Level 19.1 Height (Feet): 5 Height (Inches): 7.00 Weight (Pounds): 299 Objective Obese AA man NCAT barbara BS, power RR obese abd nonfocal Bee Krueger MD May 01, 2018 21:08
[2018-05-01] MEDS: Epogen (for ESRD on dialysis) SUBQ SCH ×2 (21:23→22:58)
[2018-05-01] MEDS: Meropenem 500 MG in NS 55 ML IVPB SCH (21:25)
--- NOTE | 2018-05-01 21:31 | General Progress Note ---
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 hepatitis per heme will hold off on ivc filter coumadin per pharmacy fe deficiency anemia, started on iron and epo GI eval appreciated trasnfused with dialysis dialysis dependent pulmonary fup cards fup echo noted on cardizem drip converted to sinus rhythm monior platelets hgb dvt and ulcer prohylaxis Subjective Allergies: Coded Allergies: NO KNOWN DRUG ALLERGIES (Verified Allergy, Unknown, 03/06/18) Subjective above noted trasnfered yesterday to ICU secoday to sustained svt 170 converted to sinus on cardizem drip Objective Last 24 Hour Vital Signs Date Time Temp Pulse Resp B/P (MAP) Pulse Ox O2 Delivery O2 Flow Rate FiO2 05/01/18 21:15 111 24 99 Facial 45 05/01/18 20:14 103 20 97 Facial 45 05/01/18 19:32 110 24 100 Venturi Mask 45 05/01/18 19:22 97 Venturi Mask 10.0 45 05/01/18 19:22 Venturi Mask 10.0 45 05/01/18 19:22 104 22 97 Venturi Mask 45 05/01/18 19:01 152/80 05/01/18 18:30 109 22 152/80 (104) 89 05/01/18 18:00 111 21 151/93 (112) 92 05/01/18 17:30 106 21 161/77 (105) 93 05/01/18 17:30 104 139/81 05/01/18 17:00 107 21 138/81 (100) 96 05/01/18 16:34 Venturi Mask 05/01/18 16:30 105 22 158/89 (112) 96 05/01/18 16:13 102 20 100 Venturi Mask 45 05/01/18 16:03 106 16 97 Bi-pap 40 05/01/18 16:00 105 19 103/87 (92) 97 05/01/18 16:00 107 05/01/18 15:30 108 21 158/78 (104) 97 05/01/18 15:00 109 21 120/94 (103) 92 05/01/18 14:30 94 21 95/61 (72) 97 05/01/18 14:00 104 21 163/79 (107) 97 05/01/18 13:30 104 21 158/82 (107) 98 05/01/18 13:00 104 21 161/78 (105) 97 05/01/18 12:37 105 20 95 05/01/18 12:30 100 21 154/85 (108) 98 05/01/18 12:00 98.2 101 22 167/79 (108) 97 05/01/18 12:00 101 05/01/18 11:30 99 24 151/80 (103) 93 05/01/18 11:26 110 22 100 Venturi Mask 45 05/01/18 11:16 95 12 98 Bi-pap 40 05/01/18 11:14 95 12 98 Facial 40 05/01/18 10:57 101 17 145/70 (95) 92 05/01/18 10:00 100 16 145/70 (95) 92 05/01/18 09:49 100 24 98 Facial 40 05/01/18 09:00 104 24 167/76 (106) 92 05/01/18 09:00 102 162/75 05/01/18 08:00 103 24 167/76 (106) 99 05/01/18 08:00 102 05/01/18 07:28 104 25 96 Facial 40 05/01/18 07:23 108 20 100 Bi-pap 40 05/01/18 07:13 108 20 92 Nasal Cannula 4.0 36 05/01/18 07:12 92 Nasal Cannula 4.0 36 05/01/18 07:11 Nasal Cannula 4.0 36 05/01/18 06:30 102 24 136/95 (109) 98 05/01/18 06:00 104 25 144/82 (102) 100 05/01/18 05:30 98.3 105 26 142/72 (95) 100 05/01/18 05:00 145 24 131/90 (104) 96 05/01/18 04:55 150 20 97 Facial 40 05/01/18 04:28 149 25 153/86 (108) 100 05/01/18 04:18 148 05/01/18 04:00 Nasal Cannula 4.0 Nasal Cannula 4.0 05/01/18 04:00 150 22 153/77 (102) 100 05/01/18 03:30 Bi-pap Bi-pap 05/01/18 03:21 Bi-pap 40 05/01/18 03:20 97.9 148 24 154/121 (132) 99 05/01/18 03:20 Bi-pap 40 05/01/18 03:00 149 153/77 05/01/18 00:54 149 21 98 Facial 40 05/01/18 00:00 98.0 150 20 106/77 (87) 99 05/01/18 00:00 109 04/30/18 23:38 167 04/30/18 23:35 102 21 99 Facial 40 04/30/18 23:04 106 22 100 Nasal Cannula 4.0 36 04/30/18 22:53 101 22 96 Nasal Cannula 4.0 36 04/30/18 22:50 106 18 98 Facial 40 Intake and Output 04/30/18 05/01/18 19:00 07:00 Intake Total 487.888 ml 438.104 ml Output Total 0 ml Balance 487.888 ml 438.104 ml Intake Oral 450 ml IV Total 37.888 ml 438.104 ml Output Urine Total 0 ml # Bowel Movements 3 Laboratory Tests 05/01/18 04:30: White Blood Count 6.4, Red Blood Count 2.87L, Hemoglobin 8.1L, Hematocrit 26.7L , Mean Corpuscular Volume 93, Mean Corpuscular Hemoglobin 28.3, Mean Corpuscular Hemoglobin Concent 30.4L, Red Cell Distribution Width 18.2H, Platelet Count 107L, Mean Platelet Volume 6.1L, Neutrophils (%) (Auto) 83.5H, Lymphocytes (%) (Auto) 5.2L, Monocytes (%) (Auto) 7.2, Eosinophils (%) (Auto) 2.5, Basophils (%) (Auto) 1.7, Prothrombin Time 23.8H, Prothromb Time International Ratio 2.4H, Activated Partial Thromboplast Time 89H, Sodium Level 135L, Potassium Level 5.8H, Chloride Level 96L, Carbon Dioxide Level 27, Anion Gap 12, Blood Urea Nitrogen 79H, Creatinine 9.4H, Estimat Glomerular Filtration Rate 6.8, Glucose Level 126H, Calcium Level 9.5, Phosphorus Level 9.2H, Random Vancomycin Level 19.1 Height (Feet): 5 Height (Inches): 7.00 Weight (Pounds): 299 General Appearance: WD/WN, no apparent distress Neck: supple Cardiovascular: normal rate Respiratory/Chest: decreased breath sounds Abdomen: soft Objective left lower extremity dressing intact clean no bleeding Moe Sewell MD May 01, 2018 21:31
--- NOTE | 2018-05-01 22:00 | NUR ---
NURSE NOTES: pt c/o left foot pain medicated with norco 1 tab with relief
--- NOTE | 2018-05-01 22:42 | NUR ---
DISCHARGE PLANNING PATIENT WAS REFERRED TO [facility] PER MD'S REQUEST SAMPLER AND TEST PREPARER RECEIVED MESSAGE FROM PATIENT'S , NURA T: [phone] STATING UPON DISCHARGE SHE WOULD LIKE HER IN A SNF [place] [place] SUCH [facility] OR [facility] SO THEY HAVE EASIER ACCESS TO VISIT ENDORSED ABOVE TO SAMPLER AND TEST PREPARER VIKAS SINCE PATIENt IS NOW ON STEP DOWN UNIT
[2018-05-02] VITALS (36 sets, daily range): BP systolic 135–174; BP diastolic 48–91
--- NOTE | 2018-05-02 | NUR ---
NURSE NOTES: asleep no acute distress note
--- NOTE | 2018-05-02 02:00 | NUR ---
asleep no distress noted
[2018-05-02] MEDS: Ipratropium 0.02% Inh Soln 2.5ml UD HHN SCH ×6 (03:04→23:00)
--- NOTE | 2018-05-02 04:00 | NUR ---
NURSE NOTES: awake and alert no c/o pain am care done
[2018-05-02 05:12] LABS: HEMATOCRIT 24.9 % (42.0-52.0); HEMOGLOBIN 7.8 G/DL (14.2-18.0); MEAN CORPUSCULAR VOLUME 92 FL (80-99); PLATELET COUNT 117 K/UL (150-450); RED BLOOD COUNT 2.69 M/UL (4.70-6.10); RED CELL DISTRIBUTION WIDTH 18.7 % (11.6-14.8); WHITE BLOOD COUNT 4.9 K/UL (4.8-10.8)
[2018-05-02 05:50] LABS: ANION GAP 15 mmol/L (5-15); BLOOD UREA NITROGEN 77 mg/dL (7-18); CALCIUM 9.7 MG/DL (8.5-10.1); CARBON DIOXIDE 24 MMOL/L (21-32); CHLORIDE 95 MMOL/L (98-107); CREATININE 9.4 MG/DL (0.55-1.30); POTASSIUM 5.9 MMOL/L (3.5-5.1); SODIUM 134 MMOL/L (136-145)
[2018-05-02] MEDS: Vigamox Opth Soln 3ml BOTH EYES SCH ×3 (06:21→21:32)
[2018-05-02] MEDS: NovoLOG Insulin Flexpen SUBQ SCH ×4 (06:23→21:35)
[2018-05-02] MEDS: Heparin 25,000u/D5W 500ml 500 ML IV SCH ×2 (07:50→12:09)
--- NOTE | 2018-05-02 08:00 | NUR ---
NURSE NOTES: Patient alert&oriented x4. teletypesetter monitor showing ST HR 101. Patient currently on 45% Venturi lung sounds diminished bilaterally, O2 saturation 100% RR 25. Patient on renal diet, finished 100% of breakfast. No dysphagia noted. Large, round non-tender abdomen. Hypoactive bowel sounds on all 4 quadrants. Patient has L foot stage 3, R hand fingers amputated, R foot toes amputated. R forearm 20 L forearm 20. Heparin on 15 u/kg/hr per pharmacy, PTT scheduled at 1500. Cardizem at 10 mg/hr. Patient scheduled for dialysis today. Confirmed with SAVANNA at [facility] dialysis. Patient Stable, VSS, Bed on lowest position, patient in high-fowlers, call light within reach, will continue to monitor patient.
[2018-05-02] MEDS: Docusate 100mg cap ORAL SCH ×2 (09:00→18:29)
[2018-05-02] MEDS: Allopurinol 100mg Tab ORAL SCH (09:32)
[2018-05-02] MEDS: cloNIDine 0.2mg Tab ORAL SCH ×2 (09:33→18:28)
[2018-05-02] MEDS: Nephrovite tab (Rena-Vite) ORAL SCH (09:33)
[2018-05-02] MEDS: Pantoprazole Inj IVP SCH (09:34)
--- NOTE | 2018-05-02 09:52 | NUR ---
RADIOLOGY DEPT CHEST X-RAY DONE.-P.DYE
--- NOTE | 2018-05-02 10:00 | NUR ---
NURSE NOTES: patient able to self reposition. VSS. no distress noted. Calm and cooperative. Cardizem titrated down to 8 mg/hr. Tolerating well. BP and HR stable. Will continue plan of care.
--- NOTE | 2018-05-02 12:00 | NUR ---
NURSE NOTES: Cardizem titrated to 2 mg. Tolerating well. Undergoing dialysis, no distress noted. Will continue plan of care.
--- NOTE | 2018-05-02 12:11 | Diagnostic Imaging Report ---
Indication: Dyspnea Comparison: 04/27/2018 A single view chest radiograph was obtained. Findings: Similar findings demonstrated once again with the diffuse prominent pulmonary vascularity and reticular markings and patchy areas of alveolar airspace disease particularly within the right lung. Heart remains enlarged. IMPRESSION: Pulmonary edema
--- NOTE | 2018-05-02 13:50 | General Progress Note ---
Assessment/Plan Assessment/Plan # DVT of the deep veins superficial and politeal of the left leg, thrombocytopenia likely due to hep B chronic status --> VQ scan shows low probability of PE --> remains with anemia and low platelets therefore contraindication for anticoagulation --> will hold off on IVC filter --> continue coumadin inr goal 2-3 --> Cards and pulm recs appreciated as well as renal, vasc --> only if h/h drops, reconsider ivc filter, but currently doing well on coumadin # Thrombocytopenia -- plt goal >20k, transfuse as required, hepatitis B chronic infection --> plt trend in the 66k-->63k-->58k-->60k-->100s range --> hep B noted and if no change in plt, consider anticoagulation --> coumadin started # Anemia of iron deficiency --> started on iron and epogen (AGREE WITH RENAL) --> anemia panel has been reviewed --> hgb goal >7, transfuse as needed --> peripheral smear to be reviewed # hepatitis B -- appears to be chronic though need to confirm --> hep b viral load and ab ordered # Acute CHF exacerbation/pulmonary edema --> as per pulm # COPD w/o obvious exacerbation # CHU # ESRD on HD --> hd as per renal # Hx multiple amputations # Diabetic foot infection --> as per ID # Acute CHF exacerbation/pulmonary edema # COPD w/o obvious exacerbation Time of note does not necessarily reflect time of encounter Greatly appreciate consultation! Subjective Allergies: Coded Allergies: NO KNOWN DRUG ALLERGIES (Verified Allergy, Unknown, 03/06/18) Subjective 04/26: no events, potential plan for ivc f on sunday.12: no further ivc filter planned, started on coumadin inr goal 2-3 04/28: on iron and epogen dw Dr. Harper, continue as per his recs 04/29: awake and comfortable, HD today, On BIPAP and Oxygen. No new events. 04/30: Pt is seen by bedside, Platelets rising, 101 today. Coumadin started. Sleeping with BiPAP, HD tomorrow. 05/01: Pt was transferred to ICU for SVT on BIPAP, complains of less pain and swelling in his left foot, getting HD. 05/02: remains inthe icu, nsr at this time, tolerating coumadin, h/h relatively stable, plt better Objective Last 24 Hour Vital Signs Date Time Temp Pulse Resp B/P (MAP) Pulse Ox O2 Delivery O2 Flow Rate FiO2 05/02/18 13:30 103 30 147/85 (105) 100 05/02/18 13:00 104 30 150/76 (100) 98 05/02/18 12:30 102 30 144/72 (96) 100 05/02/18 12:00 Venturi Mask 15.0 Venturi Mask 15.0 05/02/18 12:00 98.7 101 30 140/70 (93) 100 05/02/18 12:00 98 05/02/18 11:30 100 30 135/74 (94) 100 05/02/18 11:00 102 28 158/80 (106) 100 05/02/18 10:35 99 22 98 Venturi Mask 10.0 45 05/02/18 10:30 101 26 150/84 (106) 100 05/02/18 10:25 102 22 92 Venturi Mask 10.0 45 05/02/18 10:00 102 25 154/87 (109) 100 05/02/18 09:33 154/72 05/02/18 09:30 103 24 144/57 (86) 100 05/02/18 09:00 103 27 154/72 (99) 100 05/02/18 08:30 102 24 145/68 (93) 100 05/02/18 08:00 130 05/02/18 08:00 Venturi Mask 15.0 Venturi Mask 15.0 05/02/18 08:00 98.9 107 25 148/70 (96) 100 05/02/18 07:45 107 25 91 05/02/18 07:30 100 18 88 05/02/18 07:22 102 20 97 Venturi Mask 45 05/02/18 07:15 100 17 98 05/02/18 07:13 Nasal Cannula 4.0 36 05/02/18 07:12 101 20 89 Nasal Cannula 45 05/02/18 07:12 92 Nasal Cannula 4.0 36 05/02/18 07:00 100 18 150/80 (103) 88 05/02/18 06:45 98 21 91 05/02/18 06:30 99 21 148/83 (104) 100 05/02/18 06:15 98 21 99 1/17/19 06:00 99 21 148/83 (104) 100 05/02/18 05:45 99 21 100 05/02/18 05:31 101 21 100 Facial 45 05/02/18 05:30 99 21 148/83 (104) 100 05/02/18 05:15 100 23 99 05/02/18 05:00 100 20 154/83 (106) 100 05/02/18 04:45 100 20 98 05/02/18 04:30 102 23 174/75 (108) 99 05/02/18 04:00 115 05/02/18 04:00 98.4 104 25 150/91 (110) 98 05/02/18 04:00 Nasal Cannula 4.0 Nasal Cannula 4.0 05/02/18 03:30 104 25 150/91 (110) 98 05/02/18 03:18 95 15 99 Bi-pap 45 05/02/18 03:04 102 17 99 Bi-pap 45 05/02/18 03:03 102 17 99 Facial 45 05/02/18 03:00 104 25 150/91 (110) 98 05/02/18 02:30 104 25 150/91 (110) 98 05/02/18 02:00 104 25 150/91 (110) 98 05/02/18 01:30 104 25 150/91 (110) 98 05/02/18 01:05 106 23 96 Facial 45 05/02/18 01:00 107 24 158/88 (111) 97 05/02/18 00:30 107 20 160/88 (112) 98 05/02/18 00:00 115 05/02/18 00:00 Nasal Cannula 4.0 Nasal Cannula 4.0 05/02/18 00:00 111 23 155/85 (108) 99 05/02/18 00:00 111 23 155/85 (108) 99 05/01/18 23:30 105 20 143/80 (101) 99 05/01/18 23:24 104 19 100 Bi-pap 45 05/01/18 23:15 105 20 99 05/01/18 23:12 104 20 98 Bi-pap 45 05/01/18 23:11 104 20 98 Facial 45 05/01/18 23:00 104 21 151/86 (107) 99 05/01/18 22:45 106 21 98 05/01/18 22:30 106 24 151/88 (109) 98 05/01/18 22:15 106 19 96 05/01/18 22:00 109 24 163/82 (109) 98 05/01/18 21:45 104 20 99 05/01/18 21:30 106 22 156/80 (105) 99 05/01/18 21:15 110 26 99 05/01/18 21:15 111 24 99 Facial 45 05/01/18 21:00 109 25 151/91 (111) 100 05/01/18 20:45 108 23 99 05/01/18 20:30 107 24 163/91 (115) 99 05/01/18 20:15 105 28 100 05/01/18 20:14 103 20 97 Facial 45 05/01/18 20:00 107 05/01/18 20:00 Nasal Cannula 4.0 Nasal Cannula 4.0 05/01/18 20:00 98.6 107 26 160/84 (109) 98 05/01/18 19:45 107 23 98 05/01/18 19:32 110 24 100 Venturi Mask 45 05/01/18 19:30 105 25 157/83 (107) 99 05/01/18 19:22 97 Venturi Mask 10.0 45 05/01/18 19:22 Venturi Mask 10.0 45 05/01/18 19:22 104 22 97 Venturi Mask 45 05/01/18 19:15 112 24 86 05/01/18 19:01 152/80 05/01/18 19:00 107 25 147/88 (107) 88 05/01/18 18:30 109 22 152/80 (104) 89 05/01/18 18:00 111 21 151/93 (112) 92 05/01/18 17:30 106 21 161/77 (105) 93 05/01/18 17:30 104 139/81 05/01/18 17:00 107 21 138/81 (100) 96 05/01/18 16:34 Venturi Mask 05/01/18 16:30 105 22 158/89 (112) 96 05/01/18 16:13 102 20 100 Venturi Mask 45 05/01/18 16:03 106 16 97 Bi-pap 40 05/01/18 16:00 105 19 103/87 (92) 97 05/01/18 16:00 107 05/01/18 15:30 108 21 158/78 (104) 97 05/01/18 15:00 109 21 120/94 (103) 92 05/01/18 14:30 94 21 95/61 (72) 97 05/01/18 14:00 104 21 163/79 (107) 97 Intake and Output 05/01/18 05/02/18 18:59 06:59 Intake Total 623.04 ml 1182.992 ml Output Total 4000 ml 0 ml Balance -3376.96 ml 1182.992 ml Intake Oral 320 ml IV Total 303.04 ml 1182.992 ml Output Urine Total 0 ml 0 ml Hemodialysis UF 4000 ml # Bowel Movements 1 Laboratory Tests 05/02/18 03:50: White Blood Count 4.9, Red Blood Count 2.69L, Hemoglobin 7.8L, Hematocrit 24.9L , Mean Corpuscular Volume 92, Mean Corpuscular Hemoglobin 28.9, Mean Corpuscular Hemoglobin Concent 31.2L, Red Cell Distribution Width 18.7H, Platelet Count 117L, Mean Platelet Volume 6.3L, Neutrophils (%) (Auto) , Lymphocytes (%) (Auto) , Monocytes (%) (Auto) , Eosinophils (%) (Auto) , Basophils (%) (Auto) , Prothrombin Time 20.7H, Prothromb Time International Ratio 2.0H, Activated Partial Thromboplast Time 131H, Sodium Level 134L, Potassium Level 5.9H, Chloride Level 95L, Carbon Dioxide Level 24, Anion Gap 15 , Blood Urea Nitrogen 77H, Creatinine 9.4H, Estimat Glomerular Filtration Rate 6.8, Glucose Level 110H, Calcium Level 9.7, Prostate Specific Antigen 10.42H, Thyroid Stimulating Hormone (TSH) 1.151, Free Thyroxine 1.08, Triiodothyonine ( T3) [Pending] Height (Feet): 5 Height (Inches): 7.00 Weight (Pounds): 292 Objective Gen: NAD HEAD AND NECK: No JVD. LUNGS: Decreased breath sounds. CARDIOVASCULAR: Regular S1 and S2 with no gallop. ABDOMEN: Soft. EXTREMITIES: Status post multiple amputations, 2+ lower extremity edema. Juve Soto MD May 02, 2018 13:50
[2018-05-02] MEDS ORDERED: dilTIAZem HCl 90mg tab ORAL SCH (14:00)
--- NOTE | 2018-05-02 14:00 | NUR ---
NURSE NOTES: Patient turned and repositioned. VSS. Transfer order obtained to [facility]. Patient currently eating lunch. Will transfer after he finishes eating.
--- NOTE | 2018-05-02 14:17 | Nephrology Progress Note ---
Assessment/Plan Problem List: (1) ESRD (end stage renal disease) (2) Diabetic infection of left foot (3) Acute DVT (deep venous thrombosis) Assessment: LLE (4) PVD (peripheral vascular disease) (5) Anemia Assessment: better (6) Iron deficiency (7) Thrombocytopenia Assessment: better (8) HTN (hypertension) Assessment: better Plan HD tomorrow again with UF as tolerated (had 4 lit UF today) continue Epogen +IV Iron abxs anticoagulation follow labs Discussed with HD RN Subjective Subjective still SOB seen in ICU Objective Objective Last 24 Hour Vital Signs Date Time Temp Pulse Resp B/P (MAP) Pulse Ox O2 Delivery O2 Flow Rate FiO2 05/02/18 14:12 106 15 95 Venturi Mask 10.0 45 05/02/18 13:30 103 30 147/85 (105) 100 05/02/18 13:00 104 30 150/76 (100) 98 05/02/18 12:30 102 30 144/72 (96) 100 05/02/18 12:00 Venturi Mask 15.0 Venturi Mask 15.0 05/02/18 12:00 98.7 101 30 140/70 (93) 100 05/02/18 12:00 98 05/02/18 11:30 100 30 135/74 (94) 100 05/02/18 11:00 102 28 158/80 (106) 100 05/02/18 10:35 99 22 98 Venturi Mask 10.0 45 05/02/18 10:30 101 26 150/84 (106) 100 05/02/18 10:25 102 22 92 Venturi Mask 10.0 45 05/02/18 10:00 102 25 154/87 (109) 100 05/02/18 09:33 154/72 05/02/18 09:30 103 24 144/57 (86) 100 05/02/18 09:00 103 27 154/72 (99) 100 05/02/18 08:30 102 24 145/68 (93) 100 05/02/18 08:00 130 05/02/18 08:00 Venturi Mask 15.0 Venturi Mask 15.0 05/02/18 08:00 98.9 107 25 148/70 (96) 100 05/02/18 07:45 107 25 91 05/02/18 07:30 100 18 88 05/02/18 07:22 102 20 97 Venturi Mask 45 05/02/18 07:15 100 17 98 05/02/18 07:13 Nasal Cannula 4.0 36 05/02/18 07:12 101 20 89 Nasal Cannula 45 05/02/18 07:12 92 Nasal Cannula 4.0 36 05/02/18 07:00 100 18 150/80 (103) 88 05/02/18 06:45 98 21 91 05/02/18 06:30 99 21 148/83 (104) 100 05/02/18 06:15 98 21 99 05/02/18 06:00 99 21 148/83 (104) 100 05/02/18 05:45 99 21 100 05/02/18 05:31 101 21 100 Facial 45 05/02/18 05:30 99 21 148/83 (104) 100 05/02/18 05:15 100 23 99 05/02/18 05:00 100 20 154/83 (106) 100 05/02/18 04:45 100 20 98 05/02/18 04:30 102 23 174/75 (108) 99 05/02/18 04:00 115 05/02/18 04:00 98.4 104 25 150/91 (110) 98 05/02/18 04:00 Nasal Cannula 4.0 Nasal Cannula 4.0 05/02/18 03:30 104 25 150/91 (110) 98 05/02/18 03:18 95 15 99 Bi-pap 45 05/02/18 03:04 102 17 99 Bi-pap 45 05/02/18 03:03 102 17 99 Facial 45 05/02/18 03:00 104 25 150/91 (110) 98 05/02/18 02:30 104 25 150/91 (110) 98 05/02/18 02:00 104 25 150/91 (110) 98 05/02/18 01:30 104 25 150/91 (110) 98 05/02/18 01:05 106 23 96 Facial 45 05/02/18 01:00 107 24 158/88 (111) 97 05/02/18 00:30 107 20 160/88 (112) 98 05/02/18 00:00 115 05/02/18 00:00 Nasal Cannula 4.0 Nasal Cannula 4.0 05/02/18 00:00 111 23 155/85 (108) 99 05/02/18 00:00 111 23 155/85 (108) 99 05/01/18 23:30 105 20 143/80 (101) 99 05/01/18 23:24 104 19 100 Bi-pap 45 05/01/18 23:15 105 20 99 05/01/18 23:12 104 20 98 Bi-pap 45 05/01/18 23:11 104 20 98 Facial 45 05/01/18 23:00 104 21 151/86 (107) 99 05/01/18 22:45 106 21 98 05/01/18 22:30 106 24 151/88 (109) 98 05/01/18 22:15 106 19 96 05/01/18 22:00 109 24 163/82 (109) 98 05/01/18 21:45 104 20 99 05/01/18 21:30 106 22 156/80 (105) 99 05/01/18 21:15 110 26 99 05/01/18 21:15 111 24 99 Facial 45 05/01/18 21:00 109 25 151/91 (111) 100 05/01/18 20:45 108 23 99 05/01/18 20:30 107 24 163/91 (115) 99 05/01/18 20:15 105 28 100 05/01/18 20:14 103 20 97 Facial 45 05/01/18 20:00 107 05/01/18 20:00 Nasal Cannula 4.0 Nasal Cannula 4.0 05/01/18 20:00 98.6 107 26 160/84 (109) 98 05/01/18 19:45 107 23 98 05/01/18 19:32 110 24 100 Venturi Mask 45 05/01/18 19:30 105 25 157/83 (107) 99 05/01/18 19:22 97 Venturi Mask 10.0 45 05/01/18 19:22 Venturi Mask 10.0 45 05/01/18 19:22 104 22 97 Venturi Mask 45 05/01/18 19:15 112 24 86 05/01/18 19:01 152/80 05/01/18 19:00 107 25 147/88 (107) 88 05/01/18 18:30 109 22 152/80 (104) 89 05/01/18 18:00 111 21 151/93 (112) 92 05/01/18 17:30 106 21 161/77 (105) 93 05/01/18 17:30 104 139/81 05/01/18 17:00 107 21 138/81 (100) 96 05/01/18 16:34 Venturi Mask 05/01/18 16:30 105 22 158/89 (112) 96 05/01/18 16:13 102 20 100 Venturi Mask 45 05/01/18 16:03 106 16 97 Bi-pap 40 05/01/18 16:00 105 19 103/87 (92) 97 05/01/18 16:00 107 05/01/18 15:30 108 21 158/78 (104) 97 05/01/18 15:00 109 21 120/94 (103) 92 05/01/18 14:30 94 21 95/61 (72) 97 Intake and Output 05/01/18 05/02/18 18:59 06:59 Intake Total 623.04 ml 1182.992 ml Output Total 4000 ml 0 ml Balance -3376.96 ml 1182.992 ml Intake Oral 320 ml IV Total 303.04 ml 1182.992 ml Output Urine Total 0 ml 0 ml Hemodialysis UF 4000 ml # Bowel Movements 1 Laboratory Tests 05/02/18 03:50: White Blood Count 4.9, Red Blood Count 2.69L, Hemoglobin 7.8L, Hematocrit 24.9L , Mean Corpuscular Volume 92, Mean Corpuscular Hemoglobin 28.9, Mean Corpuscular Hemoglobin Concent 31.2L, Red Cell Distribution Width 18.7H, Platelet Count 117L, Mean Platelet Volume 6.3L, Neutrophils (%) (Auto) , Lymphocytes (%) (Auto) , Monocytes (%) (Auto) , Eosinophils (%) (Auto) , Basophils (%) (Auto) , Prothrombin Time 20.7H, Prothromb Time International Ratio 2.0H, Activated Partial Thromboplast Time 131H, Sodium Level 134L, Potassium Level 5.9H, Chloride Level 95L, Carbon Dioxide Level 24, Anion Gap 15 , Blood Urea Nitrogen 77H, Creatinine 9.4H, Estimat Glomerular Filtration Rate 6.8, Glucose Level 110H, Calcium Level 9.7, Prostate Specific Antigen 10.42H, Thyroid Stimulating Hormone (TSH) 1.151, Free Thyroxine 1.08, Triiodothyonine ( T3) [Pending] Height (Feet): 5 Height (Inches): 7.00 Weight (Pounds): 292 Cardiovascular: normal rate Respiratory/Chest: lungs clear Extremities: moderate edema - less Johan Harper MD May 02, 2018 14:17
--- NOTE | 2018-05-02 14:41 | NUR ---
CASE MANAGEMENT: REVIEW SI: RESPIRATORY FAILURE . CHF . DIABETIC FOOT INFECTION . RENAL FAILURE ON DIALYSIS T 98.7 HR 106 RR 30 BP 150/76 SAT 95% VENTURI MASK FIO2 45 H/H 7.8/24.9 NA 134 BUN 77 CR 9.4 IS: CARDIZEM IV Q24HR VENOFER IV QHS MEROPENEM IV Q24HR PROCRIT SQ MWF HEMODIALYSIS PRN ICU STATUS DCP: PATIENT IS FROM HOME
--- NOTE | 2018-05-02 14:44 | Cardiac Electrophysiology PN ---
Assessment/Plan Status Narrative Normal left ventricular chamber size, systolic function and wall motion. Left ventricular ejection fraction estimated to be 60-65 %. Moderate left ventricular hypertrophy by 2-D. Small posterior pericardial effusion. Moderate left atrial enlargement. Mild right atrial enlargement. Right ventricular chamber size is within normal limits. Moderate aortic valve calcification with decreased cusp excursion c/w aortic stenosis. Moderately thickened mitral valve leaflets with normal excursion. Mitral annulus and aortic root calcification. Pulmonic valve not well visualized. Normal tricuspid valve structure. IVC dilated at 2.4 cm with slight physiologic collapse suggestive of in Assessment/Plan 1. Congestive heart failure. BNP of more than 35,000 on hemodialysis. EF 65% 2. Troponin elevation. Troponin of 0.057. It could be due to renal failure. The patient does not have any chest pain. Echocardiogram EF 65%. 3. Hypertension. On hemodialysis and clonidine 0.2 mg b.i.d. Change Cardizem drip to Cardizem 90 po q 6hr 4. Sustained SVT at rate 170. Change Cardizem drip to Cardizem 90 po q 6hr 5. Morbid obesity. 6. Peripheral vascular disease left metatarsal and finger amputations 7. Respiratory failure/ COPD. On BIPAP 8. Acute left leg DVT on heparin drip and Coumadin per Rx 9. Lower extremity cellulitis, on iv Abx per [facility] RN and Dr Harper Subjective Subjective In ICU , no further SVT. Converted to SR. DCed Cardizem drip. Had HD yesterday Objective Last 24 Hour Vital Signs Date Time Temp Pulse Resp B/P (MAP) Pulse Ox O2 Delivery O2 Flow Rate FiO2 05/02/18 14:12 106 15 95 Venturi Mask 10.0 45 05/02/18 14:00 102 28 140/80 (100) 100 05/02/18 13:30 103 30 147/85 (105) 100 05/02/18 13:00 104 30 150/76 (100) 98 05/02/18 12:30 102 30 144/72 (96) 100 05/02/18 12:00 Venturi Mask 15.0 Venturi Mask 15.0 05/02/18 12:00 98.7 101 30 140/70 (93) 100 05/02/18 12:00 98 05/02/18 11:30 100 30 135/74 (94) 100 05/02/18 11:00 102 28 158/80 (106) 100 05/02/18 10:35 99 22 98 Venturi Mask 10.0 45 05/02/18 10:30 101 26 150/84 (106) 100 05/02/18 10:25 102 22 92 Venturi Mask 10.0 45 05/02/18 10:00 102 25 154/87 (109) 100 05/02/18 09:33 154/72 05/02/18 09:30 103 24 144/57 (86) 100 05/02/18 09:00 103 27 154/72 (99) 100 05/02/18 08:30 102 24 145/68 (93) 100 05/02/18 08:00 130 05/02/18 08:00 Venturi Mask 15.0 Venturi Mask 15.0 05/02/18 08:00 98.9 107 25 148/70 (96) 100 05/02/18 07:45 107 25 91 05/02/18 07:30 100 18 88 05/02/18 07:22 102 20 97 Venturi Mask 45 05/02/18 07:15 100 17 98 05/02/18 07:13 Nasal Cannula 4.0 36 05/02/18 07:12 101 20 89 Nasal Cannula 45 05/02/18 07:12 92 Nasal Cannula 4.0 36 05/02/18 07:00 100 18 150/80 (103) 88 05/02/18 06:45 98 21 91 05/02/18 06:30 99 21 148/83 (104) 100 05/02/18 06:15 98 21 99 05/02/18 06:00 99 21 148/83 (104) 100 05/02/18 05:45 99 21 100 05/02/18 05:31 101 21 100 Facial 45 05/02/18 05:30 99 21 148/83 (104) 100 05/02/18 05:15 100 23 99 05/02/18 05:00 100 20 154/83 (106) 100 05/02/18 04:45 100 20 98 05/02/18 04:30 102 23 174/75 (108) 99 05/02/18 04:00 115 05/02/18 04:00 98.4 104 25 150/91 (110) 98 05/02/18 04:00 Nasal Cannula 4.0 Nasal Cannula 4.0 05/02/18 03:30 104 25 150/91 (110) 98 05/02/18 03:18 95 15 99 Bi-pap 45 05/02/18 03:04 102 17 99 Bi-pap 45 05/02/18 03:03 102 17 99 Facial 45 05/02/18 03:00 104 25 150/91 (110) 98 05/02/18 02:30 104 25 150/91 (110) 98 05/02/18 02:00 104 25 150/91 (110) 98 05/02/18 01:30 104 25 150/91 (110) 98 05/02/18 01:05 106 23 96 Facial 45 05/02/18 01:00 107 24 158/88 (111) 97 05/02/18 00:30 107 20 160/88 (112) 98 05/02/18 00:00 115 05/02/18 00:00 Nasal Cannula 4.0 Nasal Cannula 4.0 05/02/18 00:00 111 23 155/85 (108) 99 05/02/18 00:00 111 23 155/85 (108) 99 05/01/18 23:30 105 20 143/80 (101) 99 05/01/18 23:24 104 19 100 Bi-pap 45 05/01/18 23:15 105 20 99 05/01/18 23:12 104 20 98 Bi-pap 45 05/01/18 23:11 104 20 98 Facial 45 05/01/18 23:00 104 21 151/86 (107) 99 05/01/18 22:45 106 21 98 05/01/18 22:30 106 24 151/88 (109) 98 05/01/18 22:15 106 19 96 05/01/18 22:00 109 24 163/82 (109) 98 05/01/18 21:45 104 20 99 05/01/18 21:30 106 22 156/80 (105) 99 05/01/18 21:15 110 26 99 05/01/18 21:15 111 24 99 Facial 45 05/01/18 21:00 109 25 151/91 (111) 100 05/01/18 20:45 108 23 99 05/01/18 20:30 107 24 163/91 (115) 99 05/01/18 20:15 105 28 100 05/01/18 20:14 103 20 97 Facial 45 05/01/18 20:00 107 05/01/18 20:00 Nasal Cannula 4.0 Nasal Cannula 4.0 05/01/18 20:00 98.6 107 26 160/84 (109) 98 05/01/18 19:45 107 23 98 05/01/18 19:32 110 24 100 Venturi Mask 45 05/01/18 19:30 105 25 157/83 (107) 99 05/01/18 19:22 97 Venturi Mask 10.0 45 05/01/18 19:22 Venturi Mask 10.0 45 05/01/18 19:22 104 22 97 Venturi Mask 45 05/01/18 19:15 112 24 86 05/01/18 19:01 152/80 05/01/18 19:00 107 25 147/88 (107) 88 05/01/18 18:30 109 22 152/80 (104) 89 05/01/18 18:00 111 21 151/93 (112) 92 05/01/18 17:30 106 21 161/77 (105) 93 05/01/18 17:30 104 139/81 05/01/18 17:00 107 21 138/81 (100) 96 05/01/18 16:34 Venturi Mask 05/01/18 16:30 105 22 158/89 (112) 96 05/01/18 16:13 102 20 100 Venturi Mask 45 05/01/18 16:03 106 16 97 Bi-pap 40 05/01/18 16:00 105 19 103/87 (92) 97 05/01/18 16:00 107 05/01/18 15:30 108 21 158/78 (104) 97 05/01/18 15:00 109 21 120/94 (103) 92 Intake and Output 05/01/18 05/02/18 19:00 07:00 Intake Total 623.04 ml 1192.992 ml Output Total 4000 ml 0 ml Balance -3376.96 ml 1192.992 ml Intake Oral 320 ml IV Total 303.04 ml 1192.992 ml Output Urine Total 0 ml 0 ml Hemodialysis UF 4000 ml # Bowel Movements 1 Laboratory Tests Test 05/02/18 03:50 White Blood Count 4.9 K/UL (4.8-10.8) Red Blood Count 2.69 M/UL (4.70-6.10) L Hemoglobin 7.8 G/DL (14.2-18.0) L Hematocrit 24.9 % (42.0-52.0) L Mean Corpuscular Volume 92 FL (80-99) Mean Corpuscular Hemoglobin 28.9 PG (27.0-31.0) Mean Corpuscular Hemoglobin Concent 31.2 G/DL (32.0-36.0) L Red Cell Distribution Width 18.7 % (11.6-14.8) H Platelet Count 117 K/UL (150-450) L Mean Platelet Volume 6.3 FL (6.5-10.1) L Neutrophils (%) (Auto) % (45.0-75.0) Lymphocytes (%) (Auto) % (20.0-45.0) Monocytes (%) (Auto) % (1.0-10.0) Eosinophils (%) (Auto) % (0.0-3.0) Basophils (%) (Auto) % (0.0-2.0) Prothrombin Time 20.7 SEC (9.30-11.50) H Prothromb Time International Ratio 2.0 (0.9-1.1) H Activated Partial Thromboplast Time 131 SEC (23-33) H Sodium Level 134 MMOL/L (136-145) L Potassium Level 5.9 MMOL/L (3.5-5.1) H Chloride Level 95 MMOL/L (98-107) L Carbon Dioxide Level 24 MMOL/L (21-32) Anion Gap 15 mmol/L (5-15) Blood Urea Nitrogen 77 mg/dL (7-18) H Creatinine 9.4 MG/DL (0.55-1.30) H Estimat Glomerular Filtration Rate 6.8 mL/min (>60) Glucose Level 110 MG/DL (74-106) H Calcium Level 9.7 MG/DL (8.5-10.1) Prostate Specific Antigen 10.42 ng/mL (0.13-4.0) H Thyroid Stimulating Hormone (TSH) 1.151 uiU/mL (0.358-3.740) Free Thyroxine 1.08 NG/DL (0.76-1.46) Triiodothyonine (T3) Pending Objective HEAD AND NECK: Positive JVD.On facemask CARDIOVASCULAR: Regular S1 and S2 with no gallop. ABDOMEN: Soft.Obese EXTREMITIES: Status post multiple amputations, 2+ lower extremity edema. Left foot amputated Shelton Perdomo MD May 02, 2018 14:44
--- NOTE | 2018-05-02 14:57 | Infectious Diseases Prog Note ---
Assessment/Plan Problems: (1) Acute osteomyelitis of metatarsal bone of left foot Assessment & Plan: left stump wound grew MRSA and Enterobacter cloacae, will continue meropenem and vancomycin treatment for osteomyelitis of the left foot metatarsal bone for 6 weeks. continue local wound care and dressings change as per general medical practitioner. vascular recommended no revascularization at this point. will treat with iv antibiotics for 6 weeks for his left metatarsal bone osteomyelitis. will follow patient along with general medical practitioner (2) Achilles tendon infection Assessment & Plan: with open wound, already on wide spectrum antibiotics coverage , continue local wound care and dressings change , podiatry is following (3) Diabetic foot infection Assessment & Plan: continue wide spectrum antibiotics , with tight glycemic control. (4) ESRD (end stage renal disease) Assessment & Plan: on HD , renal is following (5) PVD (peripheral vascular disease) Assessment & Plan: had vascular eval , no need for angioplasty of the left leg as per vascular, on anticoagulation (6) Hepatitis B surface antigen positive Assessment & Plan: suspect due to recent vaccination , rule out active HBV infection, await viral load to confirm (7) Acute dyspnea Assessment & Plan: suspect due to fluids over load, continue aggressive HD , monitor ABG, and CXR , continue BIPAP, pulmonary is following (8) Acute bacterial conjunctivitis Assessment & Plan: continue moxifloxacin eye drops for 5 days Subjective Constitutional: Reports: no symptoms HEENT: Reports: no symptoms Respiratory: Reports: dry cough Cardiovascular: Reports: palpitations Gastrointestinal/Abdominal: Reports: no symptoms Genitourinary: Reports: no symptoms Neurologic: Reports: no symptoms Psychiatric: Reports: anxiety Skin: Reports: ulcer Endocrine: Reports: no symptoms Hematologic: Reports: no symptoms Musculoskeletal: Reports: pain Allergies: Coded Allergies: NO KNOWN DRUG ALLERGIES (Verified Allergy, Unknown, 03/06/18) Subjective he was still in ICU for SVT monitor, and on BIPAP, feels congested and short of breath , with less pain and swelling in his left foot, no productive cough Objective Vital Signs Last 24 Hour Vital Signs Date Time Temp Pulse Resp B/P (MAP) Pulse Ox O2 Delivery O2 Flow Rate FiO2 05/02/18 14:30 103 28 144/82 (102) 100 05/02/18 14:12 106 15 95 Venturi Mask 10.0 45 05/02/18 14:00 109 147/54 05/02/18 14:00 102 28 140/80 (100) 100 05/02/18 13:30 103 30 147/85 (105) 100 05/02/18 13:00 104 30 150/76 (100) 98 05/02/18 12:30 102 30 144/72 (96) 100 05/02/18 12:00 Venturi Mask 15.0 Venturi Mask 15.0 05/02/18 12:00 98.7 101 30 140/70 (93) 100 05/02/18 12:00 98 05/02/18 11:30 100 30 135/74 (94) 100 05/02/18 11:00 102 28 158/80 (106) 100 05/02/18 10:35 99 22 98 Venturi Mask 10.0 45 05/02/18 10:30 101 26 150/84 (106) 100 05/02/18 10:25 102 22 92 Venturi Mask 10.0 45 05/02/18 10:00 102 25 154/87 (109) 100 05/02/18 09:33 154/72 05/02/18 09:30 103 24 144/57 (86) 100 05/02/18 09:00 103 27 154/72 (99) 100 05/02/18 08:30 102 24 145/68 (93) 100 05/02/18 08:00 130 05/02/18 08:00 Venturi Mask 15.0 Venturi Mask 15.0 05/02/18 08:00 98.9 107 25 148/70 (96) 100 05/02/18 07:45 107 25 91 05/02/18 07:30 100 18 88 05/02/18 07:22 102 20 97 Venturi Mask 45 05/02/18 07:15 100 17 98 05/02/18 07:13 Nasal Cannula 4.0 36 05/02/18 07:12 101 20 89 Nasal Cannula 45 05/02/18 07:12 92 Nasal Cannula 4.0 36 05/02/18 07:00 100 18 150/80 (103) 88 05/02/18 06:45 98 21 91 05/02/18 06:30 99 21 148/83 (104) 100 05/02/18 06:15 98 21 99 05/02/18 06:00 99 21 148/83 (104) 100 05/02/18 05:45 99 21 100 05/02/18 05:31 101 21 100 Facial 45 05/02/18 05:30 99 21 148/83 (104) 100 05/02/18 05:15 100 23 99 05/02/18 05:00 100 20 154/83 (106) 100 05/02/18 04:45 100 20 98 05/02/18 04:30 102 23 174/75 (108) 99 05/02/18 04:00 115 05/02/18 04:00 98.4 104 25 150/91 (110) 98 05/02/18 04:00 Nasal Cannula 4.0 Nasal Cannula 4.0 05/02/18 03:30 104 25 150/91 (110) 98 05/02/18 03:18 95 15 99 Bi-pap 45 05/02/18 03:04 102 17 99 Bi-pap 45 05/02/18 03:03 102 17 99 Facial 45 05/02/18 03:00 104 25 150/91 (110) 98 05/02/18 02:30 104 25 150/91 (110) 98 05/02/18 02:00 104 25 150/91 (110) 98 05/02/18 01:30 104 25 150/91 (110) 98 05/02/18 01:05 106 23 96 Facial 45 05/02/18 01:00 107 24 158/88 (111) 97 05/02/18 00:30 107 20 160/88 (112) 98 05/02/18 00:00 115 05/02/18 00:00 Nasal Cannula 4.0 Nasal Cannula 4.0 05/02/18 00:00 111 23 155/85 (108) 99 05/02/18 00:00 111 23 155/85 (108) 99 05/01/18 23:30 105 20 143/80 (101) 99 05/01/18 23:24 104 19 100 Bi-pap 45 05/01/18 23:15 105 20 99 05/01/18 23:12 104 20 98 Bi-pap 45 05/01/18 23:11 104 20 98 Facial 45 05/01/18 23:00 104 21 151/86 (107) 99 05/01/18 22:45 106 21 98 05/01/18 22:30 106 24 151/88 (109) 98 05/01/18 22:15 106 19 96 05/01/18 22:00 109 24 163/82 (109) 98 05/01/18 21:45 104 20 99 05/01/18 21:30 106 22 156/80 (105) 99 05/01/18 21:15 110 26 99 05/01/18 21:15 111 24 99 Facial 45 05/01/18 21:00 109 25 151/91 (111) 100 05/01/18 20:45 108 23 99 05/01/18 20:30 107 24 163/91 (115) 99 05/01/18 20:15 105 28 100 05/01/18 20:14 103 20 97 Facial 45 05/01/18 20:00 107 05/01/18 20:00 Nasal Cannula 4.0 Nasal Cannula 4.0 05/01/18 20:00 98.6 107 26 160/84 (109) 98 05/01/18 19:45 107 23 98 05/01/18 19:32 110 24 100 Venturi Mask 45 05/01/18 19:30 105 25 157/83 (107) 99 05/01/18 19:22 97 Venturi Mask 10.0 45 05/01/18 19:22 Venturi Mask 10.0 45 05/01/18 19:22 104 22 97 Venturi Mask 45 05/01/18 19:15 112 24 86 05/01/18 19:01 152/80 05/01/18 19:00 107 25 147/88 (107) 88 05/01/18 18:30 109 22 152/80 (104) 89 05/01/18 18:00 111 21 151/93 (112) 92 05/01/18 17:30 106 21 161/77 (105) 93 05/01/18 17:30 104 139/81 05/01/18 17:00 107 21 138/81 (100) 96 05/01/18 16:34 Venturi Mask 05/01/18 16:30 105 22 158/89 (112) 96 05/01/18 16:13 102 20 100 Venturi Mask 45 05/01/18 16:03 106 16 97 Bi-pap 40 05/01/18 16:00 105 19 103/87 (92) 97 05/01/18 16:00 107 05/01/18 15:30 108 21 158/78 (104) 97 05/01/18 15:00 109 21 120/94 (103) 92 Height (Feet): 5 Height (Inches): 7.00 Weight (Pounds): 292 General Appearance: WD/WN, no acute distress, other - on BIPAP HEENT: normocephalic, atraumatic, anicteric, mucous membranes moist, PERRL, pharynx normal, supple, no JVD Respiratory/Chest: chest wall non-tender, no respiratory distress, no accessory muscle use, decreased breath sounds, crackles/rales Cardiovascular: regular rhythm, no gallop/murmur, no JVD, tachycardia Abdomen: normal bowel sounds, soft, non tender, no organomegaly, non distended , no mass, no scars Extremities: no cyanosis, no clubbing Skin: no rash, no lesions, no ulcers 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 normal, alert, oriented x 3, responsive Lymphatic: no neck adenopathy, no groin adenopathy Musculoskeletal: normal muscle bulk, no effusion Laboratory Tests Test 05/02/18 03:50 White Blood Count 4.9 K/UL (4.8-10.8) Red Blood Count 2.69 M/UL (4.70-6.10) L Hemoglobin 7.8 G/DL (14.2-18.0) L Hematocrit 24.9 % (42.0-52.0) L Mean Corpuscular Volume 92 FL (80-99) Mean Corpuscular Hemoglobin 28.9 PG (27.0-31.0) Mean Corpuscular Hemoglobin Concent 31.2 G/DL (32.0-36.0) L Red Cell Distribution Width 18.7 % (11.6-14.8) H Platelet Count 117 K/UL (150-450) L Mean Platelet Volume 6.3 FL (6.5-10.1) L Neutrophils (%) (Auto) % (45.0-75.0) Lymphocytes (%) (Auto) % (20.0-45.0) Monocytes (%) (Auto) % (1.0-10.0) Eosinophils (%) (Auto) % (0.0-3.0) Basophils (%) (Auto) % (0.0-2.0) Prothrombin Time 20.7 SEC (9.30-11.50) H Prothromb Time International Ratio 2.0 (0.9-1.1) H Activated Partial Thromboplast Time 131 SEC (23-33) H Sodium Level 134 MMOL/L (136-145) L Potassium Level 5.9 MMOL/L (3.5-5.1) H Chloride Level 95 MMOL/L (98-107) L Carbon Dioxide Level 24 MMOL/L (21-32) Anion Gap 15 mmol/L (5-15) Blood Urea Nitrogen 77 mg/dL (7-18) H Creatinine 9.4 MG/DL (0.55-1.30) H Estimat Glomerular Filtration Rate 6.8 mL/min (>60) Glucose Level 110 MG/DL (74-106) H Calcium Level 9.7 MG/DL (8.5-10.1) Prostate Specific Antigen 10.42 ng/mL (0.13-4.0) H Thyroid Stimulating Hormone (TSH) 1.151 uiU/mL (0.358-3.740) Free Thyroxine 1.08 NG/DL (0.76-1.46) Triiodothyonine (T3) Pending Current Medications Medications (Trade) Dose Ordered Sig/Oliverio Route PRN Reason Start Time Stop Time Status Last Admin Dose Admin Acetaminophen (Tylenol) 650 mg Q6H PRN ORAL Mild Pain/Temp > 100.5 05/01/18 08:00 05/23/18 13:56 Acetaminophen/ Hydrocodone Bitart (Harviell 10/325) 1 tab Q6H PRN ORAL For Pain 05/01/18 06:30 05/07/18 12:23 05/01/18 21:29 Allopurinol (Zyloprim) 100 mg DAILY ORAL 05/01/18 09:00 05/24/18 08:59 05/02/18 09:32 Calcium Carbonate (Tums) 500 mg TIDPRN PRN ORAL Nausea & Vomiting/Dyspepsia 05/01/18 14:00 05/26/18 13:59 Clonidine HCl (Catapres Tab) 0.1 mg Q2H PRN ORAL SBP > 170 05/02/18 13:15 06/01/18 13:14 Clonidine HCl (Catapres tab) 0.2 mg BID ORAL 05/01/18 09:00 05/23/18 22:29 05/02/18 09:33 Dextrose (Dextrose 50%) 25 ml Q30M PRN IV Hypoglycemia 05/01/18 06:30 05/23/18 22:59 Dextrose (Dextrose 50%) 50 ml Q30M PRN IV Hypoglycemia 05/01/18 06:30 05/23/18 22:59 Diltiazem HCl (Cardizem) 90 mg EVERY 8 HOURS ORAL 05/02/18 14:00 06/01/18 13:59 05/02/18 14:00 Diltiazem HCl 125 mg/Dextrose 125 ml @ 0 mls/hr Q24H IV 05/02/18 03:00 05/03/18 02:59 05/01/18 17:30 Docusate Sodium (Colace) 100 mg TWICE A DAY ORAL 05/01/18 09:00 05/24/18 08:59 05/02/18 09:00 Epoetin Yung (Procrit (for ESRD on dialysis)) 7,000 units SUN-SUN-SUN SUBQ 05/01/18 21:00 05/29/18 20:59 05/01/18 22:58 Finasteride (Proscar) 5 mg DAILY ORAL 05/01/18 09:00 05/24/18 08:59 05/02/18 09:32 Gabapentin (Neurontin) 300 mg DAILY ORAL 05/01/18 09:00 05/24/18 08:59 05/02/18 09:31 Heparin Sodium (Porcine) (Heparin Sod 1000 units/ml 10ml) 500 unit ONCE ONCE IV 05/02/18 19:45 05/02/18 19:46 Heparin Sodium/ Dextrose 500 ml @ 31.574 mls/ hr ADJUST PER PROTOCOL IV 05/02/18 07:45 06/01/18 07:44 05/02/18 12:09 Insulin Aspart (NovoLOG) BEFORE MEALS AND HS SUBQ 05/01/18 06:30 05/24/18 06:29 05/02/18 11:59 Ipratropium [place] (Atrovent) 500 mcg Q4HRT HHN 05/01/18 15:00 05/06/18 14:59 05/02/18 14:11 Meropenem 500 mg/ Sodium Chloride 55 ml @ 110 mls/hr Q24H IVPB 05/01/18 21:00 06/04/18 23:00 05/01/18 21:25 Moxifloxacin HCl (Vigamox) 1 drop Q8HR BOTH EYES 05/01/18 14:00 05/04/18 13:59 05/02/18 14:00 Pantoprazole (Protonix) 40 mg DAILY IVP 05/01/18 09:00 05/24/18 08:59 05/02/18 09:34 Sodium Chloride 1,000 ml @ 500 mls/hr Q2H PRN IVLG sbp<90 during hd 05/02/18 14:19 05/03/18 23:59 Tamsulosin HCl (Flomax) 0.4 mg BEDTIME ORAL 05/01/18 21:00 05/23/18 23:44 05/01/18 21:24 Vancomycin HCl (Vanco rx to dose) 1 ea DAILY PRN MISC Per rx protocol 05/01/18 09:00 06/04/18 23:00 Vitamin B Complex/ Vit C/Folic Acid (Nephrovite) 1 tab DAILY ORAL 05/01/18 09:00 05/26/18 08:59 05/02/18 09:33 Warfarin Sodium (Coumadin per pharmacy) 1 ea DAILY PRN MISC Per rx protocol 05/01/18 09:00 05/29/18 08:14 Warfarin Sodium (Coumadin) 5 mg COUMADIN ONCE ORAL 05/02/18 17:00 05/02/18 17:01 Jaime Casey M.D. May 02, 2018 14:57
--- NOTE | 2018-05-02 15:26 | Pulmonolgy Critical Care Note ---
Critical Care - Asmt/Plan Assessment/Plan: Problem List: 1. Diabetic foot infection 2. Acute diastolic CHF exacerbation/pulmonary edema 3. COPD w/o obvious exacerbation 4. CHU 5. ESRD on HD 6. Hx multiple amputations 7. Thrombocytopenia 8. Anemia 9. L leg DVT 10. HTN - uncontrolled 11. 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 CC Time: 35 min Critical Care - Objective Last 24 Hour Vital Signs Date Time Temp Pulse Resp B/P (MAP) Pulse Ox O2 Delivery O2 Flow Rate FiO2 05/02/18 15:00 105 30 148/84 (105) 100 05/02/18 14:30 103 28 144/82 (102) 100 05/02/18 14:22 106 20 97 Venturi Mask 10.0 45 05/02/18 14:12 106 15 95 Venturi Mask 10.0 45 05/02/18 14:00 109 147/54 05/02/18 14:00 102 28 140/80 (100) 100 05/02/18 13:30 103 30 147/85 (105) 100 05/02/18 13:00 104 30 150/76 (100) 98 05/02/18 12:30 102 30 144/72 (96) 100 05/02/18 12:00 Venturi Mask 15.0 Venturi Mask 15.0 05/02/18 12:00 98.7 101 30 140/70 (93) 100 05/02/18 12:00 98 05/02/18 11:30 100 30 135/74 (94) 100 05/02/18 11:00 102 28 158/80 (106) 100 05/02/18 10:35 99 22 98 Venturi Mask 10.0 45 05/02/18 10:30 101 26 150/84 (106) 100 05/02/18 10:25 102 22 92 Venturi Mask 10.0 45 05/02/18 10:00 102 25 154/87 (109) 100 05/02/18 09:33 154/72 05/02/18 09:30 103 24 144/57 (86) 100 05/02/18 09:00 103 27 154/72 (99) 100 05/02/18 08:30 102 24 145/68 (93) 100 05/02/18 08:00 130 05/02/18 08:00 Venturi Mask 15.0 Venturi Mask 15.0 05/02/18 08:00 98.9 107 25 148/70 (96) 100 05/02/18 07:45 107 25 91 05/02/18 07:30 100 18 88 05/02/18 07:22 102 20 97 Venturi Mask 45 05/02/18 07:15 100 17 98 05/02/18 07:13 Nasal Cannula 4.0 36 05/02/18 07:12 101 20 89 Nasal Cannula 45 05/02/18 07:12 92 Nasal Cannula 4.0 36 05/02/18 07:00 100 18 150/80 (103) 88 05/02/18 06:45 98 21 91 05/02/18 06:30 99 21 148/83 (104) 100 05/02/18 06:15 98 21 99 05/02/18 06:00 99 21 148/83 (104) 100 05/02/18 05:45 99 21 100 05/02/18 05:31 101 21 100 Facial 45 05/02/18 05:30 99 21 148/83 (104) 100 05/02/18 05:15 100 23 99 05/02/18 05:00 100 20 154/83 (106) 100 05/02/18 04:45 100 20 98 05/02/18 04:30 102 23 174/75 (108) 99 05/02/18 04:00 115 05/02/18 04:00 98.4 104 25 150/91 (110) 98 05/02/18 04:00 Nasal Cannula 4.0 Nasal Cannula 4.0 05/02/18 03:30 104 25 150/91 (110) 98 05/02/18 03:18 95 15 99 Bi-pap 45 05/02/18 03:04 102 17 99 Bi-pap 45 05/02/18 03:03 102 17 99 Facial 45 05/02/18 03:00 104 25 150/91 (110) 98 05/02/18 02:30 104 25 150/91 (110) 98 05/02/18 02:00 104 25 150/91 (110) 98 05/02/18 01:30 104 25 150/91 (110) 98 05/02/18 01:05 106 23 96 Facial 45 05/02/18 01:00 107 24 158/88 (111) 97 05/02/18 00:30 107 20 160/88 (112) 98 05/02/18 00:00 115 05/02/18 00:00 Nasal Cannula 4.0 Nasal Cannula 4.0 05/02/18 00:00 111 23 155/85 (108) 99 05/02/18 00:00 111 23 155/85 (108) 99 05/01/18 23:30 105 20 143/80 (101) 99 05/01/18 23:24 104 19 100 Bi-pap 45 05/01/18 23:15 105 20 99 05/01/18 23:12 104 20 98 Bi-pap 45 05/01/18 23:11 104 20 98 Facial 45 05/01/18 23:00 104 21 151/86 (107) 99 05/01/18 22:45 106 21 98 05/01/18 22:30 106 24 151/88 (109) 98 05/01/18 22:15 106 19 96 05/01/18 22:00 109 24 163/82 (109) 98 05/01/18 21:45 104 20 99 05/01/18 21:30 106 22 156/80 (105) 99 05/01/18 21:15 110 26 99 05/01/18 21:15 111 24 99 Facial 45 05/01/18 21:00 109 25 151/91 (111) 100 05/01/18 20:45 108 23 99 05/01/18 20:30 107 24 163/91 (115) 99 05/01/18 20:15 105 28 100 05/01/18 20:14 103 20 97 Facial 45 05/01/18 20:00 107 05/01/18 20:00 Nasal Cannula 4.0 Nasal Cannula 4.0 05/01/18 20:00 98.6 107 26 160/84 (109) 98 05/01/18 19:45 107 23 98 05/01/18 19:32 110 24 100 Venturi Mask 45 05/01/18 19:30 105 25 157/83 (107) 99 05/01/18 19:22 97 Venturi Mask 10.0 45 05/01/18 19:22 Venturi Mask 10.0 45 05/01/18 19:22 104 22 97 Venturi Mask 45 05/01/18 19:15 112 24 86 05/01/18 19:01 152/80 05/01/18 19:00 107 25 147/88 (107) 88 05/01/18 18:30 109 22 152/80 (104) 89 05/01/18 18:00 111 21 151/93 (112) 92 05/01/18 17:30 106 21 161/77 (105) 93 05/01/18 17:30 104 139/81 05/01/18 17:00 107 21 138/81 (100) 96 05/01/18 16:34 Venturi Mask 05/01/18 16:30 105 22 158/89 (112) 96 05/01/18 16:13 102 20 100 Venturi Mask 45 05/01/18 16:03 106 16 97 Bi-pap 40 05/01/18 16:00 105 19 103/87 (92) 97 05/01/18 16:00 107 05/01/18 15:30 108 21 158/78 (104) 97 Status: awake Condition: improving HEENT: atraumatic Neck: full ROM Lungs: rales Heart: HR/BP stable Abdomen: soft, non-tender Extremities: edema Accucheck: 122 Critical Care - Subjective ROS Limited/Unobtainable: No Interval Events: Remains on diltiazem gtt but coming down. Still feels short of breath. CXR with continued pulmonary edema HD again today. Condition: stable EKG Rhythm: Sinus Tachycardia FI02: 45 Sputum Amount: None I&O: Intake and Output 05/01/18 05/02/18 19:00 07:00 Intake Total 623.04 ml 1192.992 ml Output Total 4000 ml 0 ml Balance -3376.96 ml 1192.992 ml Intake Oral 320 ml IV Total 303.04 ml 1192.992 ml Output Urine Total 0 ml 0 ml Hemodialysis UF 4000 ml # Bowel Movements 1 CXR: Pulmonary edema Tyrel Platt MD May 02, 2018 15:26
[2018-05-02] MEDS ORDERED: Warfarin Sodium 5mg ORAL SCH (17:00)
[2018-05-02] MEDS ORDERED: Warfarin Sodium 5mg ORAL ONE ×2 (17:00→17:45)
--- NOTE | 2018-05-02 17:33 | NUR ---
TRANSFER TO FLOOR: Patient transferred to [facility], per Hospital bed. Report given to Meme POON. Belongings and medications given to RN. Family and or S/O informed of transfer.
[2018-05-02] MEDS ORDERED: Tums 500mg ORAL PRN (17:41)
[2018-05-02] MEDS ORDERED: Heparin Sod 1000 units/ml 10ml IV PRN (17:42)
--- NOTE | 2018-05-02 17:50 | General Progress Note ---
Assessment/Plan Assessment/Plan Assessment - Heme (+) stools - Anemia and thrombocytopenia - DVT - on anticoagulation - Hep B S Ag (+) - DM - PVD - CHU - PVD - Poor Px Recommendations - Patient appropriately has declined GI w/u - Will follow conservatively - Monitor CBC while on anticoagulation - Replace Fe IV - PPI - if H&H declines on anticoagulation, may need to reconsider IVC filter - Check HBV quantitative PCR Subjective Allergies: Coded Allergies: NO KNOWN DRUG ALLERGIES (Verified Allergy, Unknown, 03/06/18) Subjective Seen in ICU on FM at this time able to eat, but has to go slow and focus on breathing Objective Last 24 Hour Vital Signs Date Time Temp Pulse Resp B/P (MAP) Pulse Ox O2 Delivery O2 Flow Rate FiO2 05/02/18 17:30 103 20 140/70 (93) 100 05/02/18 17:00 106 20 138/75 (96) 100 05/02/18 16:30 105 25 148/80 (102) 100 05/02/18 16:00 Venturi Mask 15.0 Venturi Mask 15.0 05/02/18 16:00 98.9 102 22 143/82 (102) 100 05/02/18 16:00 103 05/02/18 15:30 103 25 145/80 (101) 100 05/02/18 15:00 105 30 148/84 (105) 100 05/02/18 14:30 103 28 144/82 (102) 100 05/02/18 14:22 106 20 97 Venturi Mask 10.0 45 05/02/18 14:12 106 15 95 Venturi Mask 10.0 45 05/02/18 14:00 109 147/54 05/02/18 14:00 102 28 140/80 (100) 100 05/02/18 13:30 103 30 147/85 (105) 100 05/02/18 13:00 104 30 150/76 (100) 98 05/02/18 12:30 102 30 144/72 (96) 100 05/02/18 12:00 Venturi Mask 15.0 Venturi Mask 15.0 05/02/18 12:00 98.7 101 30 140/70 (93) 100 05/02/18 12:00 98 05/02/18 11:30 100 30 135/74 (94) 100 05/02/18 11:00 102 28 158/80 (106) 100 05/02/18 10:35 99 22 98 Venturi Mask 10.0 45 05/02/18 10:30 101 26 150/84 (106) 100 05/02/18 10:25 102 22 92 Venturi Mask 10.0 45 05/02/18 10:00 102 25 154/87 (109) 100 05/02/18 09:33 154/72 05/02/18 09:30 103 24 144/57 (86) 100 05/02/18 09:00 103 27 154/72 (99) 100 05/02/18 08:30 102 24 145/68 (93) 100 05/02/18 08:00 130 05/02/18 08:00 Venturi Mask 15.0 Venturi Mask 15.0 05/02/18 08:00 98.9 107 25 148/70 (96) 100 05/02/18 07:45 107 25 91 05/02/18 07:30 100 18 88 05/02/18 07:22 102 20 97 Venturi Mask 45 05/02/18 07:15 100 17 98 05/02/18 07:13 Nasal Cannula 4.0 36 05/02/18 07:12 101 20 89 Nasal Cannula 45 05/02/18 07:12 92 Nasal Cannula 4.0 36 05/02/18 07:00 100 18 150/80 (103) 88 05/02/18 06:45 98 21 91 05/02/18 06:30 99 21 148/83 (104) 100 05/02/18 06:15 98 21 99 05/02/18 06:00 99 21 148/83 (104) 100 05/02/18 05:45 99 21 100 05/02/18 05:31 101 21 100 Facial 45 05/02/18 05:30 99 21 148/83 (104) 100 05/02/18 05:15 100 23 99 05/02/18 05:00 100 20 154/83 (106) 100 05/02/18 04:45 100 20 98 05/02/18 04:30 102 23 174/75 (108) 99 05/02/18 04:00 115 05/02/18 04:00 98.4 104 25 150/91 (110) 98 05/02/18 04:00 Nasal Cannula 4.0 Nasal Cannula 4.0 05/02/18 03:30 104 25 150/91 (110) 98 05/02/18 03:18 95 15 99 Bi-pap 45 05/02/18 03:04 102 17 99 Bi-pap 45 05/02/18 03:03 102 17 99 Facial 45 05/02/18 03:00 104 25 150/91 (110) 98 05/02/18 02:30 104 25 150/91 (110) 98 05/02/18 02:00 104 25 150/91 (110) 98 05/02/18 01:30 104 25 150/91 (110) 98 05/02/18 01:05 106 23 96 Facial 45 05/02/18 01:00 107 24 158/88 (111) 97 05/02/18 00:30 107 20 160/88 (112) 98 05/02/18 00:00 115 05/02/18 00:00 Nasal Cannula 4.0 Nasal Cannula 4.0 05/02/18 00:00 111 23 155/85 (108) 99 05/02/18 00:00 111 23 155/85 (108) 99 05/01/18 23:30 105 20 143/80 (101) 99 05/01/18 23:24 104 19 100 Bi-pap 45 05/01/18 23:15 105 20 99 05/01/18 23:12 104 20 98 Bi-pap 45 05/01/18 23:11 104 20 98 Facial 45 05/01/18 23:00 104 21 151/86 (107) 99 05/01/18 22:45 106 21 98 05/01/18 22:30 106 24 151/88 (109) 98 05/01/18 22:15 106 19 96 05/01/18 22:00 109 24 163/82 (109) 98 05/01/18 21:45 104 20 99 05/01/18 21:30 106 22 156/80 (105) 99 05/01/18 21:15 110 26 99 05/01/18 21:15 111 24 99 Facial 45 05/01/18 21:00 109 25 151/91 (111) 100 05/01/18 20:45 108 23 99 05/01/18 20:30 107 24 163/91 (115) 99 05/01/18 20:15 105 28 100 05/01/18 20:14 103 20 97 Facial 45 05/01/18 20:00 107 05/01/18 20:00 Nasal Cannula 4.0 Nasal Cannula 4.0 05/01/18 20:00 98.6 107 26 160/84 (109) 98 05/01/18 19:45 107 23 98 05/01/18 19:32 110 24 100 Venturi Mask 45 05/01/18 19:30 105 25 157/83 (107) 99 05/01/18 19:22 97 Venturi Mask 10.0 45 05/01/18 19:22 Venturi Mask 10.0 45 05/01/18 19:22 104 22 97 Venturi Mask 45 05/01/18 19:15 112 24 86 05/01/18 19:01 152/80 05/01/18 19:00 107 25 147/88 (107) 88 05/01/18 18:30 109 22 152/80 (104) 89 05/01/18 18:00 111 21 151/93 (112) 92 Intake and Output 05/01/18 05/02/18 19:00 07:00 Intake Total 623.04 ml 1192.992 ml Output Total 4000 ml 0 ml Balance -3376.96 ml 1192.992 ml Intake Oral 320 ml IV Total 303.04 ml 1192.992 ml Output Urine Total 0 ml 0 ml Hemodialysis UF 4000 ml # Bowel Movements 1 Laboratory Tests 05/02/18 03:50: White Blood Count 4.9, Red Blood Count 2.69L, Hemoglobin 7.8L, Hematocrit 24.9L , Mean Corpuscular Volume 92, Mean Corpuscular Hemoglobin 28.9, Mean Corpuscular Hemoglobin Concent 31.2L, Red Cell Distribution Width 18.7H, Platelet Count 117L, Mean Platelet Volume 6.3L, Neutrophils (%) (Auto) , Lymphocytes (%) (Auto) , Monocytes (%) (Auto) , Eosinophils (%) (Auto) , Basophils (%) (Auto) , Prothrombin Time 20.7H, Prothromb Time International Ratio 2.0H, Activated Partial Thromboplast Time 131H, Sodium Level 134L, Potassium Level 5.9H, Chloride Level 95L, Carbon Dioxide Level 24, Anion Gap 15 , Blood Urea Nitrogen 77H, Creatinine 9.4H, Estimat Glomerular Filtration Rate 6.8, Glucose Level 110H, Calcium Level 9.7, Prostate Specific Antigen 10.42H, Thyroid Stimulating Hormone (TSH) 1.151, Free Thyroxine 1.08, Triiodothyonine ( T3) [Pending] 05/02/18 15:42: Random Vancomycin Level 18.9 Height (Feet): 5 Height (Inches): 7.00 Weight (Pounds): 292 Objective Obese AA man NCAT barbara BS, power RR obese abd nonfocal Bee Krueger MD May 02, 2018 17:50
--- NOTE | 2018-05-02 18:00 | NUR ---
NURSE NOTES: received pt from ICU, awake, alert, oriented, vital signs stable, no co pain, venturi mask 45%, dressing on left leg, no SOB, continue monitoring.
--- NOTE | 2018-05-02 19:32 | NUR ---
HAND-OFF: Report given to JOSEPH POON.
--- NOTE | 2018-05-02 19:33 | NUR ---
NURSE NOTES: Received bedside report from CLEVE Downs.Patient stable,A&Ox4,BiPAP PRN,Vent mask on,patient tolerated well,no c/o pain,no respiratory distress noted,AV shunt for dialysis is on Left side ,IV on R f/arm and L f/arm G 20 asymptomatic,intact,bed secured in a safe low position,call light within a reach,will continue to monitor.
[2018-05-02] MEDS ORDERED: Heparin Sod 1000 units/ml 10ml IV ONE (19:45)
[2018-05-02] MEDS ORDERED: Vancomycin 750mg/NS 275ml 250 ML IVPB SCH (21:00)
[2018-05-02] MEDS ORDERED: Vancomycin 750mg/NS 250ml IVPB SCH (21:00)
[2018-05-02] MEDS: Meropenem 500 MG in NS 55 ML IVPB SCH ×2 (21:24→21:25)
[2018-05-02] MEDS: Tamsulosin 0.4mg cap ORAL SCH (21:29)
[2018-05-02] MEDS: dilTIAZem HCl 90mg tab ORAL SCH (21:30)
[2018-05-02] MEDS: HYDROcodone/Acetamin 10/325 tab ORAL PRN (21:32)
--- NOTE | 2018-05-02 22:20 | General Progress Note ---
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 per heme will hold off on ivc filter coumadin per pharmacy fe deficiency anemia, started on iron and epo GI eval appreciated, patient refuses GI ginny dialysis dependent pulmonary fup cards fup echo noted on cardizem drip converted to sinus rhythm monior platelets hgb dvt and ulcer prohylaxis consider trasnfer to [facility] Subjective Allergies: Coded Allergies: NO KNOWN DRUG ALLERGIES (Verified Allergy, Unknown, 03/06/18) Subjective above noted seen in ICU converted to sinus rhythm, getting dialysis Objective Last 24 Hour Vital Signs Date Time Temp Pulse Resp B/P (MAP) Pulse Ox O2 Delivery O2 Flow Rate FiO2 05/02/18 21:30 103 135/48 05/02/18 18:28 140/70 05/02/18 17:30 103 20 140/70 (93) 100 05/02/18 17:00 106 20 138/75 (96) 100 05/02/18 16:30 105 25 148/80 (102) 100 05/02/18 16:00 Venturi Mask 15.0 Venturi Mask 15.0 05/02/18 16:00 98.9 102 22 143/82 (102) 100 05/02/18 16:00 103 05/02/18 15:30 103 25 145/80 (101) 100 05/02/18 15:00 105 30 148/84 (105) 100 05/02/18 14:30 103 28 144/82 (102) 100 05/02/18 14:22 106 20 97 Venturi Mask 10.0 45 05/02/18 14:12 106 15 95 Venturi Mask 10.0 45 05/02/18 14:00 109 147/54 05/02/18 14:00 102 28 140/80 (100) 100 05/02/18 13:30 103 30 147/85 (105) 100 05/02/18 13:00 104 30 150/76 (100) 98 05/02/18 12:30 102 30 144/72 (96) 100 05/02/18 12:00 Venturi Mask 15.0 Venturi Mask 15.0 05/02/18 12:00 98.7 101 30 140/70 (93) 100 05/02/18 12:00 98 05/02/18 11:30 100 30 135/74 (94) 100 05/02/18 11:00 102 28 158/80 (106) 100 05/02/18 10:35 99 22 98 Venturi Mask 10.0 45 05/02/18 10:30 101 26 150/84 (106) 100 05/02/18 10:25 102 22 92 Venturi Mask 10.0 45 05/02/18 10:00 102 25 154/87 (109) 100 05/02/18 09:33 154/72 05/02/18 09:30 103 24 144/57 (86) 100 05/02/18 09:00 103 27 154/72 (99) 100 05/02/18 08:30 102 24 145/68 (93) 100 05/02/18 08:00 130 05/02/18 08:00 Venturi Mask 15.0 Venturi Mask 15.0 05/02/18 08:00 98.9 107 25 148/70 (96) 100 05/02/18 07:45 107 25 91 05/02/18 07:30 100 18 88 05/02/18 07:22 102 20 97 Venturi Mask 45 05/02/18 07:15 100 17 98 05/02/18 07:13 Nasal Cannula 4.0 36 05/02/18 07:12 101 20 89 Nasal Cannula 45 05/02/18 07:12 92 Nasal Cannula 4.0 36 05/02/18 07:00 100 18 150/80 (103) 88 05/02/18 06:45 98 21 91 05/02/18 06:30 99 21 148/83 (104) 100 05/02/18 06:15 98 21 99 05/02/18 06:00 99 21 148/83 (104) 100 05/02/18 05:45 99 21 100 05/02/18 05:31 101 21 100 Facial 45 05/02/18 05:30 99 21 148/83 (104) 100 05/02/18 05:15 100 23 99 05/02/18 05:00 100 20 154/83 (106) 100 05/02/18 04:45 100 20 98 05/02/18 04:30 102 23 174/75 (108) 99 05/02/18 04:00 115 05/02/18 04:00 98.4 104 25 150/91 (110) 98 05/02/18 04:00 Nasal Cannula 4.0 Nasal Cannula 4.0 05/02/18 03:30 104 25 150/91 (110) 98 05/02/18 03:18 95 15 99 Bi-pap 45 05/02/18 03:04 102 17 99 Bi-pap 45 05/02/18 03:03 102 17 99 Facial 45 05/02/18 03:00 104 25 150/91 (110) 98 05/02/18 02:30 104 25 150/91 (110) 98 05/02/18 02:00 104 25 150/91 (110) 98 05/02/18 01:30 104 25 150/91 (110) 98 05/02/18 01:05 106 23 96 Facial 45 05/02/18 01:00 107 24 158/88 (111) 97 05/02/18 00:30 107 20 160/88 (112) 98 05/02/18 00:00 115 05/02/18 00:00 Nasal Cannula 4.0 Nasal Cannula 4.0 05/02/18 00:00 111 23 155/85 (108) 99 05/02/18 00:00 111 23 155/85 (108) 99 05/01/18 23:30 105 20 143/80 (101) 99 05/01/18 23:24 104 19 100 Bi-pap 45 05/01/18 23:15 105 20 99 05/01/18 23:12 104 20 98 Bi-pap 45 05/01/18 23:11 104 20 98 Facial 45 05/01/18 23:00 104 21 151/86 (107) 99 05/01/18 22:45 106 21 98 05/01/18 22:30 106 24 151/88 (109) 98 Intake and Output 05/01/18 05/02/18 19:00 07:00 Intake Total 623.04 ml 1192.992 ml Output Total 4000 ml 0 ml Balance -3376.96 ml 1192.992 ml Intake Oral 320 ml IV Total 303.04 ml 1192.992 ml Output Urine Total 0 ml 0 ml Hemodialysis UF 4000 ml # Bowel Movements 1 Laboratory Tests 05/02/18 03:50: White Blood Count 4.9, Red Blood Count 2.69L, Hemoglobin 7.8L, Hematocrit 24.9L , Mean Corpuscular Volume 92, Mean Corpuscular Hemoglobin 28.9, Mean Corpuscular Hemoglobin Concent 31.2L, Red Cell Distribution Width 18.7H, Platelet Count 117L, Mean Platelet Volume 6.3L, Neutrophils (%) (Auto) , Lymphocytes (%) (Auto) , Monocytes (%) (Auto) , Eosinophils (%) (Auto) , Basophils (%) (Auto) , Prothrombin Time 20.7H, Prothromb Time International Ratio 2.0H, Activated Partial Thromboplast Time 131H, Sodium Level 134L, Potassium Level 5.9H, Chloride Level 95L, Carbon Dioxide Level 24, Anion Gap 15 , Blood Urea Nitrogen 77H, Creatinine 9.4H, Estimat Glomerular Filtration Rate 6.8, Glucose Level 110H, Calcium Level 9.7, Prostate Specific Antigen 10.42H, Thyroid Stimulating Hormone (TSH) 1.151, Free Thyroxine 1.08, Triiodothyonine ( T3) [Pending] 05/02/18 15:42: Random Vancomycin Level 18.9 Height (Feet): 5 Height (Inches): 7.00 Weight (Pounds): 292 General Appearance: WD/WN, no apparent distress Neck: supple Cardiovascular: normal rate Respiratory/Chest: lungs clear Abdomen: soft Objective left lower extremity dressing intact clean no bleeding Moe Sewell MD May 02, 2018 22:20
[2018-05-03] VITALS: BP 155/81
[2018-05-03] MEDS: Ipratropium 0.02% Inh Soln 2.5ml UD HHN SCH ×6 (03:14→23:00)
[2018-05-03 04:00] VITALS: BP 155/94
[2018-05-03] MEDS: Vigamox Opth Soln 3ml BOTH EYES SCH ×3 (05:31→21:14)
[2018-05-03] MEDS: NovoLOG Insulin Flexpen SUBQ SCH ×4 (05:32→21:00)
[2018-05-03] MEDS: dilTIAZem HCl 90mg tab ORAL SCH ×3 (05:32→21:15)
[2018-05-03] MEDS: HYDROcodone/Acetamin 10/325 tab ORAL PRN (05:33)
--- NOTE | 2018-05-03 07:17 | NUR ---
HAND-OFF: Report given to CLEVE Downs.Patient stable.
[2018-05-03 07:27] LABS: BASOPHILS % (AUTO) 0.8 % (0.0-2.0); EOSINOPHILS % (AUTO) 2.4 % (0.0-3.0); HEMATOCRIT 26.8 % (42.0-52.0); HEMOGLOBIN 8.1 G/DL (14.2-18.0); LYMPHOCYTES % (AUTO) 3.3 % (20.0-45.0); MEAN CORPUSCULAR VOLUME 94 FL (80-99); MONOCYTES % (AUTO) 8.9 % (1.0-10.0); NEUTROPHILS % (AUTO) 84.7 % (45.0-75.0); PLATELET COUNT 143 K/UL (150-450); RED BLOOD COUNT 2.85 M/UL (4.70-6.10); RED CELL DISTRIBUTION WIDTH 18.3 % (11.6-14.8); WHITE BLOOD COUNT 6.4 K/UL (4.8-10.8)
[2018-05-03 07:48] LABS: INR 2.1 (0.9-1.1)
[2018-05-03 07:57] LABS: ANION GAP 11 mmol/L (5-15); BLOOD UREA NITROGEN 64 mg/dL (7-18); CALCIUM 9.7 MG/DL (8.5-10.1); CARBON DIOXIDE 27 MMOL/L (21-32); CHLORIDE 95 MMOL/L (98-107); CREATININE 8.3 MG/DL (0.55-1.30); POTASSIUM 5.4 MMOL/L (3.5-5.1); SODIUM 133 MMOL/L (136-145)
[2018-05-03 08:00] VITALS: BP 152/80
--- NOTE | 2018-05-03 08:15 | NUR ---
NURSE NOTES: received pt in the bed, awake, alert, oriented, vital signs stable, pt on venturi mask 45%, no SOB, no co pain, skin warm and dry to touch, dressing on left leg dry and intact, bed in low position, call light within reach.
[2018-05-03] MEDS: Allopurinol 100mg Tab ORAL SCH (08:50)
[2018-05-03] MEDS: Nephrovite tab (Rena-Vite) ORAL SCH (08:50)
[2018-05-03] MEDS: Docusate 100mg cap ORAL SCH ×2 (08:50→18:03)
[2018-05-03] MEDS: cloNIDine 0.2mg Tab ORAL SCH ×2 (08:51→18:03)
[2018-05-03] MEDS ORDERED: Pantoprazole Inj IVP SCH (09:00)
--- NOTE | 2018-05-03 10:17 | Pulmonology Progress Note ---
Assessment/Plan Assessment/Plan Problem List: 1. Diabetic foot infection 2. Acute diastolic CHF exacerbation/pulmonary edema 3. COPD w/o obvious exacerbation 4. CHU 5. ESRD on HD 6. Hx multiple amputations 7. Thrombocytopenia 8. Anemia 9. L leg DVT 10. HTN - uncontrolled 11. SVT Plan: Abx per ID Podiatric wound care/debridement as needed Monitor volumes, cont volume removed with HD Aggressive BP control Duonebs q6 Cont CPAP 10 cm H2O Cont coumadin No plans for IVC filter Repeat CXR tomorrow Subjective ROS Limited/Unobtainable: No Interval Events: Transferred out of ICU, off cardizem gtt. HD again today Constitutional: Reports: no symptoms HEENT: Repors: no symptoms Respiratory: Reports: shortness of breath Cardiovascular: Reports: no symptoms Gastrointestinal/Abdominal: Reports: no symptoms Genitourinary: Reports: no symptoms Musculoskeletal: Reports: swelling Allergies: Coded Allergies: NO KNOWN DRUG ALLERGIES (Verified Allergy, Unknown, 03/06/18) Objective Last 24 Hour Vital Signs Date Time Temp Pulse Resp B/P (MAP) Pulse Ox O2 Delivery O2 Flow Rate FiO2 05/03/18 08:51 152/80 05/03/18 08:00 Venturi Mask 15.0 Venturi Mask 15.0 05/03/18 08:00 97.9 105 20 152/80 (104) 97 05/03/18 07:14 107 22 95 Venturi Mask 10.0 45 05/03/18 07:04 105 20 97 Venturi Mask 10.0 45 05/03/18 07:04 97 Venturi Mask 8.0 45 05/03/18 07:04 Venturi Mask 10.0 45 05/03/18 05:32 104 155/94 05/03/18 05:23 104 18 99 Facial 45 05/03/18 04:00 97.0 104 20 155/94 (114) 98 05/03/18 04:00 Venturi Mask 15.0 Venturi Mask 15.0 05/03/18 03:39 106 05/03/18 03:29 101 22 97 Bi-pap 45 05/03/18 03:10 104 20 97 Bi-pap 45 05/03/18 03:10 102 24 100 Facial 45 05/03/18 01:37 107 20 99 Facial 45 05/03/18 00:00 Venturi Mask 15.0 Venturi Mask 15.0 05/03/18 00:00 97.0 100 22 155/81 (105) 100 05/02/18 23:39 101 05/02/18 23:36 101 05/02/18 23:13 100 20 98 Bi-pap 45 05/02/18 23:04 100 20 100 Facial 45 05/02/18 22:58 Nasal Cannula 4.0 36 05/02/18 22:58 103 20 94 Venturi Mask 8.0 40 05/02/18 22:49 97 Venturi Mask 8.0 40 05/02/18 21:30 103 135/48 05/02/18 20:00 Venturi Mask 15.0 Venturi Mask 15.0 05/02/18 20:00 97.6 103 24 135/48 (77) 98 05/02/18 19:10 Venturi Mask 10.0 45 05/02/18 19:10 Venturi Mask 10.0 45 05/02/18 19:08 102 05/02/18 18:28 140/70 05/02/18 17:30 103 20 140/70 (93) 100 05/02/18 17:00 106 20 138/75 (96) 100 05/02/18 16:30 105 25 148/80 (102) 100 05/02/18 16:00 Venturi Mask 15.0 Venturi Mask 15.0 05/02/18 16:00 98.9 102 22 143/82 (102) 100 05/02/18 16:00 103 05/02/18 15:30 103 25 145/80 (101) 100 05/02/18 15:00 105 30 148/84 (105) 100 05/02/18 14:30 103 28 144/82 (102) 100 05/02/18 14:22 106 20 97 Venturi Mask 10.0 45 05/02/18 14:12 106 15 95 Venturi Mask 10.0 45 05/02/18 14:00 109 147/54 05/02/18 14:00 102 28 140/80 (100) 100 05/02/18 13:30 103 30 147/85 (105) 100 05/02/18 13:00 104 30 150/76 (100) 98 05/02/18 12:30 102 30 144/72 (96) 100 05/02/18 12:00 Venturi Mask 15.0 Venturi Mask 15.0 05/02/18 12:00 98.7 101 30 140/70 (93) 100 05/02/18 12:00 98 05/02/18 11:30 100 30 135/74 (94) 100 05/02/18 11:00 102 28 158/80 (106) 100 05/02/18 10:35 99 22 98 Venturi Mask 10.0 45 05/02/18 10:30 101 26 150/84 (106) 100 05/02/18 10:25 102 22 92 Venturi Mask 10.0 45 Intake and Output 05/02/18 05/03/18 18:59 06:59 Intake Total 190 ml 120 ml Output Total 4000 ml 4000 ml Balance -3810 ml -3880 ml Intake Oral 180 ml 120 ml IV Total 10 ml Output Urine Total 0 ml 0 ml Hemodialysis UF 4000 ml 4000 ml # Bowel Movements 4 General Appearance: no acute distress, other - alert on CPAP HEENT: normocephalic, mucous membranes moist Respiratory/Chest: crackles/rales Cardiovascular: normal rate, regular rhythm Abdomen: soft, non tender Extremities: other - improving edema b/l LE Laboratory Tests 05/02/18 15:42: Random Vancomycin Level 18.9 05/03/18 04:47: White Blood Count 6.4, Red Blood Count 2.85L, Hemoglobin 8.1L, Hematocrit 26.8L , Mean Corpuscular Volume 94, Mean Corpuscular Hemoglobin 28.4, Mean Corpuscular Hemoglobin Concent 30.3L, Red Cell Distribution Width 18.3H, Platelet Count 143L, Mean Platelet Volume 6.7, Neutrophils (%) (Auto) 84.7H, Lymphocytes (%) (Auto) 3.3L, Monocytes (%) (Auto) 8.9, Eosinophils (%) (Auto) 2.4, Basophils (%) (Auto) 0.8, Prothrombin Time 20.9H, Prothromb Time International Ratio 2.1H, Sodium Level 133L, Potassium Level 5.4H, Chloride Level 95L, Carbon Dioxide Level 27, Anion Gap 11, Blood Urea Nitrogen 64H, Creatinine 8.3H, Estimat Glomerular Filtration Rate 7.9, Glucose Level 105, Calcium Level 9.7 Current Medications Medications (Trade) Dose Ordered Sig/Oliverio Route PRN Reason Start Time Stop Time Status Last Admin Dose Admin Acetaminophen (Tylenol) 650 mg Q6H PRN ORAL Mild Pain/Temp > 100.5 05/02/18 17:41 05/23/18 17:40 Acetaminophen/ Hydrocodone Bitart (Cotuit 10/325) 1 tab Q6H PRN ORAL For Pain 05/02/18 17:43 05/07/18 17:42 05/03/18 05:33 Allopurinol (Zyloprim) 100 mg DAILY ORAL 05/03/18 09:00 05/24/18 08:59 05/03/18 08:50 Calcium Carbonate (Tums) 500 mg TIDPRN PRN ORAL Nausea & Vomiting/Dyspepsia 05/02/18 17:41 06/01/18 17:40 Clonidine HCl (Catapres Tab) 0.1 mg Q2H PRN ORAL SBP > 170 05/02/18 19:15 06/01/18 13:14 Clonidine HCl (Catapres tab) 0.2 mg BID ORAL 05/02/18 18:00 05/23/18 22:29 05/03/18 08:51 Dextrose (Dextrose 50%) 25 ml Q30M PRN IV Hypoglycemia 05/02/18 18:00 05/23/18 22:59 Dextrose (Dextrose 50%) 50 ml Q30M PRN IV Hypoglycemia 05/02/18 18:00 05/23/18 22:59 Diltiazem HCl (Cardizem) 90 mg EVERY 8 HOURS ORAL 05/02/18 22:00 06/01/18 13:59 05/03/18 05:32 Docusate Sodium (Colace) 100 mg TWICE A DAY ORAL 05/02/18 18:00 05/24/18 08:59 05/03/18 08:50 Epoetin Yung (Procrit (for ESRD on dialysis)) 7,000 units SUN-SUN-SUN SUBQ 05/03/18 21:00 05/29/18 20:59 Finasteride (Proscar) 5 mg DAILY ORAL 05/03/18 09:00 05/24/18 08:59 05/03/18 08:50 Gabapentin (Neurontin) 300 mg DAILY ORAL 05/03/18 09:00 05/24/18 08:59 05/03/18 08:51 Heparin Sodium (Porcine) (Heparin Sod 1000 units/ml 10ml) 500 unit ONCE PRN IV DIALYSIS 05/02/18 17:42 05/03/18 23:59 Insulin Aspart (NovoLOG) BEFORE MEALS AND HS SUBQ 05/02/18 21:00 05/24/18 06:29 Ipratropium [place] (Atrovent) 500 mcg Q4HRT HHN 05/02/18 19:00 05/06/18 14:59 05/03/18 07:06 Meropenem 500 mg/ Sodium Chloride 55 ml @ 110 mls/hr Q24H IVPB 05/02/18 21:00 06/04/18 23:00 05/02/18 21:25 Moxifloxacin HCl (Vigamox) 1 drop Q8HR BOTH EYES 05/02/18 22:00 05/04/18 13:59 05/03/18 05:31 Pantoprazole (Protonix) 40 mg DAILY IVP 05/03/18 09:00 05/24/18 08:59 05/03/18 08:50 Sodium Chloride 1,000 ml @ 500 mls/hr Q2H PRN IVLG sbp<90 during hd 05/02/18 17:45 05/03/18 23:59 Tamsulosin HCl (Flomax) 0.4 mg BEDTIME ORAL 05/02/18 21:00 05/23/18 23:44 05/02/18 21:29 Vancomycin HCl (Vanco rx to dose) 1 ea DAILY PRN MISC Per rx protocol 05/03/18 09:00 06/04/18 23:00 Vitamin B Complex/ Vit C/Folic Acid (Nephrovite) 1 tab DAILY ORAL 05/03/18 09:00 05/26/18 08:59 05/03/18 08:50 Warfarin Sodium (Coumadin per pharmacy) 1 ea DAILY PRN MISC Per rx protocol 05/03/18 09:00 05/29/18 08:14 Tyrel Platt MD May 03, 2018 10:17
--- NOTE | 2018-05-03 11:03 | NUR ---
NURSE NOTES: pt on HD now, tolerate well, continue monitoring.
[2018-05-03 12:00] VITALS: BP 137/73
--- NOTE | 2018-05-03 12:26 | Cardiac Electrophysiology PN ---
Assessment/Plan Status Narrative Normal left ventricular chamber size, systolic function and wall motion. Left ventricular ejection fraction estimated to be 60-65 %. Moderate left ventricular hypertrophy by 2-D. Small posterior pericardial effusion. Moderate left atrial enlargement. Mild right atrial enlargement. Right ventricular chamber size is within normal limits. Moderate aortic valve calcification with decreased cusp excursion c/w aortic stenosis. Moderately thickened mitral valve leaflets with normal excursion. Mitral annulus and aortic root calcification. Pulmonic valve not well visualized. Normal tricuspid valve structure. IVC dilated at 2.4 cm with slight physiologic collapse suggestive of in Assessment/Plan 1. Congestive heart failure. BNP of more than 35,000 on hemodialysis. 2. Troponin elevation due to renal failure. The patient does not have any chest pain. Echocardiogram EF 65%. 3. Hypertension. On hemodialysis, clonidine 0.2 mg bid and Cardizem 90 po q 8 hr 4. Sustained SVT at rate 170. On Cardizem 90 po q 8 hr 5. Morbid obesity. 6. Peripheral vascular disease left metatarsal and finger amputations 7. Respiratory failure/ COPD. On BIPAP 8. Acute left leg DVT on heparin drip and Coumadin per Rx 9. Lower extremity cellulitis, on iv Abx per ID DW RN Subjective Subjective Transferred out of ICU. Converted to SR. Off Cardizem drip.On BIPAP. Getting HD Objective Last 24 Hour Vital Signs Date Time Temp Pulse Resp B/P (MAP) Pulse Ox O2 Delivery O2 Flow Rate FiO2 05/03/18 12:00 98.2 99 16 137/73 (94) 98 05/03/18 12:00 Venturi Mask 15.0 Venturi Mask 15.0 05/03/18 11:42 Bi-pap 05/03/18 11:05 105 20 99 Bi-pap 45 05/03/18 10:54 106 19 98 Bi-pap 45 05/03/18 08:51 152/80 05/03/18 08:00 108 05/03/18 08:00 Venturi Mask 15.0 Venturi Mask 15.0 05/03/18 08:00 97.9 105 20 152/80 (104) 97 05/03/18 07:14 107 22 95 Venturi Mask 10.0 45 05/03/18 07:04 105 20 97 Venturi Mask 10.0 45 05/03/18 07:04 97 Venturi Mask 8.0 45 05/03/18 07:04 Venturi Mask 10.0 45 05/03/18 05:32 104 155/94 05/03/18 05:23 104 18 99 Facial 45 05/03/18 04:00 97.0 104 20 155/94 (114) 98 05/03/18 04:00 Venturi Mask 15.0 Venturi Mask 15.0 05/03/18 03:39 106 05/03/18 03:29 101 22 97 Bi-pap 45 05/03/18 03:10 104 20 97 Bi-pap 45 05/03/18 03:10 102 24 100 Facial 45 05/03/18 01:37 107 20 99 Facial 45 05/03/18 00:00 Venturi Mask 15.0 Venturi Mask 15.0 05/03/18 00:00 97.0 100 22 155/81 (105) 100 05/02/18 23:39 101 05/02/18 23:36 101 05/02/18 23:13 100 20 98 Bi-pap 45 05/02/18 23:04 100 20 100 Facial 45 05/02/18 22:58 Nasal Cannula 4.0 36 05/02/18 22:58 103 20 94 Venturi Mask 8.0 40 05/02/18 22:49 97 Venturi Mask 8.0 40 05/02/18 21:30 103 135/48 05/02/18 20:00 Venturi Mask 15.0 Venturi Mask 15.0 05/02/18 20:00 97.6 103 24 135/48 (77) 98 05/02/18 19:10 Venturi Mask 10.0 45 05/02/18 19:10 Venturi Mask 10.0 45 05/02/18 19:08 102 05/02/18 18:28 140/70 05/02/18 17:30 103 20 140/70 (93) 100 05/02/18 17:00 106 20 138/75 (96) 100 05/02/18 16:30 105 25 148/80 (102) 100 05/02/18 16:00 Venturi Mask 15.0 Venturi Mask 15.0 05/02/18 16:00 98.9 102 22 143/82 (102) 100 05/02/18 16:00 103 05/02/18 15:30 103 25 145/80 (101) 100 05/02/18 15:00 105 30 148/84 (105) 100 05/02/18 14:30 103 28 144/82 (102) 100 05/02/18 14:22 106 20 97 Venturi Mask 10.0 45 05/02/18 14:12 106 15 95 Venturi Mask 10.0 45 05/02/18 14:00 109 147/54 05/02/18 14:00 102 28 140/80 (100) 100 05/02/18 13:30 103 30 147/85 (105) 100 05/02/18 13:00 104 30 150/76 (100) 98 05/02/18 12:30 102 30 144/72 (96) 100 Intake and Output 05/02/18 05/03/18 18:59 06:59 Intake Total 190 ml 120 ml Output Total 4000 ml 4000 ml Balance -3810 ml -3880 ml Intake Oral 180 ml 120 ml IV Total 10 ml Output Urine Total 0 ml 0 ml Hemodialysis UF 4000 ml 4000 ml # Bowel Movements 4 Laboratory Tests Test 05/02/18 15:42 05/03/18 04:47 Random Vancomycin Level 18.9 ug/mL White Blood Count 6.4 K/UL (4.8-10.8) Red Blood Count 2.85 M/UL (4.70-6.10) L Hemoglobin 8.1 G/DL (14.2-18.0) L Hematocrit 26.8 % (42.0-52.0) L Mean Corpuscular Volume 94 FL (80-99) Mean Corpuscular Hemoglobin 28.4 PG (27.0-31.0) Mean Corpuscular Hemoglobin Concent 30.3 G/DL (32.0-36.0) L Red Cell Distribution Width 18.3 % (11.6-14.8) H Platelet Count 143 K/UL (150-450) L Mean Platelet Volume 6.7 FL (6.5-10.1) Neutrophils (%) (Auto) 84.7 % (45.0-75.0) H Lymphocytes (%) (Auto) 3.3 % (20.0-45.0) L Monocytes (%) (Auto) 8.9 % (1.0-10.0) Eosinophils (%) (Auto) 2.4 % (0.0-3.0) Basophils (%) (Auto) 0.8 % (0.0-2.0) Prothrombin Time 20.9 SEC (9.30-11.50) H Prothromb Time International Ratio 2.1 (0.9-1.1) H Sodium Level 133 MMOL/L (136-145) L Potassium Level 5.4 MMOL/L (3.5-5.1) H Chloride Level 95 MMOL/L (98-107) L Carbon Dioxide Level 27 MMOL/L (21-32) Anion Gap 11 mmol/L (5-15) Blood Urea Nitrogen 64 mg/dL (7-18) H Creatinine 8.3 MG/DL (0.55-1.30) H Estimat Glomerular Filtration Rate 7.9 mL/min (>60) Glucose Level 105 MG/DL (74-106) Calcium Level 9.7 MG/DL (8.5-10.1) Objective HEAD AND NECK: Positive JVD.On BIPAP CARDIOVASCULAR: Regular S1 and S2 with no gallop. ABDOMEN: Soft.Obese EXTREMITIES: Status post multiple amputations, 2+ lower extremity edema. Left foot amputated Shelton Perdomo MD May 03, 2018 12:26
--- NOTE | 2018-05-03 14:35 | NUR ---
NURSE NOTES: HD completed, out 4000cc, vital signs stable.
--- NOTE | 2018-05-03 15:30 | Nephrology Progress Note ---
Assessment/Plan Problem List: (1) ESRD (end stage renal disease) (2) Diabetic infection of left foot (3) Acute DVT (deep venous thrombosis) Assessment: LLE (4) PVD (peripheral vascular disease) (5) Anemia Assessment: better (6) Iron deficiency (7) Thrombocytopenia Assessment: better (8) HTN (hypertension) Assessment: better Plan HD on sunday continue Epogen +IV Iron abxs anticoagulation follow labs Discussed with RN Subjective Subjective out of ICU Objective Objective Last 24 Hour Vital Signs Date Time Temp Pulse Resp B/P (MAP) Pulse Ox O2 Delivery O2 Flow Rate FiO2 05/03/18 15:14 101 19 98 Bi-pap 45 05/03/18 15:12 101 17 98 Full Face 45 05/03/18 15:06 100 14 98 Bi-pap 45 05/03/18 14:18 95 137/73 05/03/18 12:00 95 05/03/18 12:00 98.2 99 16 137/73 (94) 98 05/03/18 12:00 Venturi Mask 15.0 Venturi Mask 15.0 05/03/18 11:42 Bi-pap 05/03/18 11:05 105 20 99 Bi-pap 45 05/03/18 10:54 106 19 98 Bi-pap 45 05/03/18 08:51 152/80 05/03/18 08:00 108 05/03/18 08:00 Venturi Mask 15.0 Venturi Mask 15.0 05/03/18 08:00 97.9 105 20 152/80 (104) 97 05/03/18 07:14 107 22 95 Venturi Mask 10.0 45 05/03/18 07:04 105 20 97 Venturi Mask 10.0 45 05/03/18 07:04 97 Venturi Mask 8.0 45 05/03/18 07:04 Venturi Mask 10.0 45 05/03/18 05:32 104 155/94 05/03/18 05:23 104 18 99 Facial 45 05/03/18 04:00 97.0 104 20 155/94 (114) 98 05/03/18 04:00 Venturi Mask 15.0 Venturi Mask 15.0 05/03/18 03:39 106 05/03/18 03:29 101 22 97 Bi-pap 45 05/03/18 03:10 104 20 97 Bi-pap 45 05/03/18 03:10 102 24 100 Facial 45 05/03/18 01:37 107 20 99 Facial 45 05/03/18 00:00 Venturi Mask 15.0 Venturi Mask 15.0 05/03/18 00:00 97.0 100 22 155/81 (105) 100 05/02/18 23:39 101 05/02/18 23:36 101 05/02/18 23:13 100 20 98 Bi-pap 45 05/02/18 23:04 100 20 100 Facial 45 05/02/18 22:58 Nasal Cannula 4.0 36 05/02/18 22:58 103 20 94 Venturi Mask 8.0 40 05/02/18 22:49 97 Venturi Mask 8.0 40 05/02/18 21:30 103 135/48 05/02/18 20:00 Venturi Mask 15.0 Venturi Mask 15.0 05/02/18 20:00 97.6 103 24 135/48 (77) 98 05/02/18 19:10 Venturi Mask 10.0 45 05/02/18 19:10 Venturi Mask 10.0 45 05/02/18 19:08 102 05/02/18 18:28 140/70 05/02/18 17:30 103 20 140/70 (93) 100 05/02/18 17:00 106 20 138/75 (96) 100 05/02/18 16:30 105 25 148/80 (102) 100 05/02/18 16:00 Venturi Mask 15.0 Venturi Mask 15.0 05/02/18 16:00 98.9 102 22 143/82 (102) 100 05/02/18 16:00 103 05/02/18 15:30 103 25 145/80 (101) 100 Intake and Output 05/02/18 05/03/18 18:59 06:59 Intake Total 190 ml 120 ml Output Total 4000 ml 4000 ml Balance -3810 ml -3880 ml Intake Oral 180 ml 120 ml IV Total 10 ml Output Urine Total 0 ml 0 ml Hemodialysis UF 4000 ml 4000 ml # Bowel Movements 4 Laboratory Tests 05/02/18 15:42: Random Vancomycin Level 18.9 05/03/18 04:47: White Blood Count 6.4, Red Blood Count 2.85L, Hemoglobin 8.1L, Hematocrit 26.8L , Mean Corpuscular Volume 94, Mean Corpuscular Hemoglobin 28.4, Mean Corpuscular Hemoglobin Concent 30.3L, Red Cell Distribution Width 18.3H, Platelet Count 143L, Mean Platelet Volume 6.7, Neutrophils (%) (Auto) 84.7H, Lymphocytes (%) (Auto) 3.3L, Monocytes (%) (Auto) 8.9, Eosinophils (%) (Auto) 2.4, Basophils (%) (Auto) 0.8, Prothrombin Time 20.9H, Prothromb Time International Ratio 2.1H, Sodium Level 133L, Potassium Level 5.4H, Chloride Level 95L, Carbon Dioxide Level 27, Anion Gap 11, Blood Urea Nitrogen 64H, Creatinine 8.3H, Estimat Glomerular Filtration Rate 7.9, Glucose Level 105, Calcium Level 9.7 Height (Feet): 5 Height (Inches): 7.00 Weight (Pounds): 281 Cardiovascular: normal rate Respiratory/Chest: lungs clear Extremities: trace edema Johan Harper MD May 03, 2018 15:30
[2018-05-03 16:00] VITALS: BP 143/79
--- NOTE | 2018-05-03 16:26 | Infectious Diseases Prog Note ---
Assessment/Plan Problems: (1) Acute osteomyelitis of metatarsal bone of left foot Assessment & Plan: left stump wound grew MRSA and Enterobacter cloacae, will continue meropenem and vancomycin treatment for osteomyelitis of the left foot metatarsal bone for 6 weeks. continue local wound care and dressings change as per administrative court justice. vascular recommended no revascularization at this point. will treat with iv antibiotics for 6 weeks for his left metatarsal bone osteomyelitis. will follow patient along with administrative court justice (2) Achilles tendon infection Assessment & Plan: with open wound, already on wide spectrum antibiotics coverage , continue local wound care and dressings change , podiatry is following (3) Diabetic foot infection Assessment & Plan: continue wide spectrum antibiotics , with tight glycemic control. (4) ESRD (end stage renal disease) Assessment & Plan: on HD , renal is following (5) PVD (peripheral vascular disease) Assessment & Plan: had vascular eval , no need for angioplasty of the left leg as per vascular, on anticoagulation (6) Hepatitis B surface antigen positive Assessment & Plan: suspect due to recent vaccination , rule out active HBV infection, await viral load to confirm (7) Acute dyspnea Assessment & Plan: suspect due to fluids over load, continue aggressive HD , monitor ABG, and CXR , continue BIPAP, pulmonary is following (8) Acute bacterial conjunctivitis Assessment & Plan: continue moxifloxacin eye drops for 5 days Subjective Constitutional: Reports: no symptoms HEENT: Reports: no symptoms Respiratory: Reports: shortness of breath Breasts: Reports: no symptoms Cardiovascular: Reports: no symptoms Gastrointestinal/Abdominal: Reports: no symptoms Genitourinary: Reports: no symptoms Neurologic: Reports: no symptoms Psychiatric: Reports: no symptoms Skin: Reports: ulcer Endocrine: Reports: no symptoms Hematologic: Reports: no symptoms Musculoskeletal: Reports: pain Allergies: Coded Allergies: NO KNOWN DRUG ALLERGIES (Verified Allergy, Unknown, 03/06/18) Subjective he was still in ICU for SVT monitor, and on BIPAP, feels congested and short of breath , with less pain and swelling in his left foot, no productive cough Objective Vital Signs Last 24 Hour Vital Signs Date Time Temp Pulse Resp B/P (MAP) Pulse Ox O2 Delivery O2 Flow Rate FiO2 05/03/18 16:00 Venturi Mask 15.0 Venturi Mask 15.0 05/03/18 16:00 99 05/03/18 15:14 101 19 98 Bi-pap 45 05/03/18 15:12 101 17 98 Full Face 45 05/03/18 15:06 100 14 98 Bi-pap 45 05/03/18 14:18 95 137/73 05/03/18 12:00 95 05/03/18 12:00 98.2 99 16 137/73 (94) 98 05/03/18 12:00 Venturi Mask 15.0 Venturi Mask 15.0 05/03/18 11:42 Bi-pap 05/03/18 11:05 105 20 99 Bi-pap 45 05/03/18 10:54 106 19 98 Bi-pap 45 05/03/18 08:51 152/80 05/03/18 08:00 108 05/03/18 08:00 Venturi Mask 15.0 Venturi Mask 15.0 05/03/18 08:00 97.9 105 20 152/80 (104) 97 05/03/18 07:14 107 22 95 Venturi Mask 10.0 45 05/03/18 07:04 105 20 97 Venturi Mask 10.0 45 05/03/18 07:04 97 Venturi Mask 8.0 45 05/03/18 07:04 Venturi Mask 10.0 45 05/03/18 05:32 104 155/94 05/03/18 05:23 104 18 99 Facial 45 05/03/18 04:00 97.0 104 20 155/94 (114) 98 05/03/18 04:00 Venturi Mask 15.0 Venturi Mask 15.0 05/03/18 03:39 106 05/03/18 03:29 101 22 97 Bi-pap 45 05/03/18 03:10 104 20 97 Bi-pap 45 05/03/18 03:10 102 24 100 Facial 45 05/03/18 01:37 107 20 99 Facial 45 05/03/18 00:00 Venturi Mask 15.0 Venturi Mask 15.0 05/03/18 00:00 97.0 100 22 155/81 (105) 100 05/02/18 23:39 101 05/02/18 23:36 101 05/02/18 23:13 100 20 98 Bi-pap 45 05/02/18 23:04 100 20 100 Facial 45 05/02/18 22:58 Nasal Cannula 4.0 36 05/02/18 22:58 103 20 94 Venturi Mask 8.0 40 05/02/18 22:49 97 Venturi Mask 8.0 40 05/02/18 21:30 103 135/48 05/02/18 20:00 Venturi Mask 15.0 Venturi Mask 15.0 05/02/18 20:00 97.6 103 24 135/48 (77) 98 05/02/18 19:10 Venturi Mask 10.0 45 05/02/18 19:10 Venturi Mask 10.0 45 05/02/18 19:08 102 05/02/18 18:28 140/70 05/02/18 17:30 103 20 140/70 (93) 100 05/02/18 17:00 106 20 138/75 (96) 100 05/02/18 16:30 105 25 148/80 (102) 100 Height (Feet): 5 Height (Inches): 7.00 Weight (Pounds): 281 General Appearance: WD/WN, no acute distress HEENT: normocephalic, atraumatic, anicteric, mucous membranes moist, PERRL, supple, no JVD Respiratory/Chest: chest wall non-tender, no respiratory distress, no accessory muscle use, decreased breath sounds, crackles/rales Cardiovascular: normal peripheral pulses, normal rate, regular rhythm, no gallop/murmur, no JVD Abdomen: normal bowel sounds, soft, non tender, no organomegaly, non distended , no mass, no scars Extremities: no cyanosis, no clubbing Skin: no rash, no lesions, ulcers - of the achilis and metatarsal wound Neurologic/Psychiatric: alert, responsive Lymphatic: no neck adenopathy, no groin adenopathy Musculoskeletal: normal muscle bulk, no effusion Laboratory Tests Test 05/03/18 04:47 White Blood Count 6.4 K/UL (4.8-10.8) Red Blood Count 2.85 M/UL (4.70-6.10) L Hemoglobin 8.1 G/DL (14.2-18.0) L Hematocrit 26.8 % (42.0-52.0) L Mean Corpuscular Volume 94 FL (80-99) Mean Corpuscular Hemoglobin 28.4 PG (27.0-31.0) Mean Corpuscular Hemoglobin Concent 30.3 G/DL (32.0-36.0) L Red Cell Distribution Width 18.3 % (11.6-14.8) H Platelet Count 143 K/UL (150-450) L Mean Platelet Volume 6.7 FL (6.5-10.1) Neutrophils (%) (Auto) 84.7 % (45.0-75.0) H Lymphocytes (%) (Auto) 3.3 % (20.0-45.0) L Monocytes (%) (Auto) 8.9 % (1.0-10.0) Eosinophils (%) (Auto) 2.4 % (0.0-3.0) Basophils (%) (Auto) 0.8 % (0.0-2.0) Prothrombin Time 20.9 SEC (9.30-11.50) H Prothromb Time International Ratio 2.1 (0.9-1.1) H Sodium Level 133 MMOL/L (136-145) L Potassium Level 5.4 MMOL/L (3.5-5.1) H Chloride Level 95 MMOL/L (98-107) L Carbon Dioxide Level 27 MMOL/L (21-32) Anion Gap 11 mmol/L (5-15) Blood Urea Nitrogen 64 mg/dL (7-18) H Creatinine 8.3 MG/DL (0.55-1.30) H Estimat Glomerular Filtration Rate 7.9 mL/min (>60) Glucose Level 105 MG/DL (74-106) Calcium Level 9.7 MG/DL (8.5-10.1) Current Medications Medications (Trade) Dose Ordered Sig/Oliverio Route PRN Reason Start Time Stop Time Status Last Admin Dose Admin Acetaminophen (Tylenol) 650 mg Q6H PRN ORAL Mild Pain/Temp > 100.5 05/02/18 17:41 05/23/18 17:40 Acetaminophen/ Hydrocodone Bitart ([place] 10325) 1 tab Q6H PRN ORAL For Pain 05/02/18 17:43 05/07/18 17:42 05/03/18 05:33 Allopurinol (Zyloprim) 100 mg DAILY ORAL 05/03/18 09:00 05/24/18 08:59 05/03/18 08:50 Calcium Carbonate (Tums) 500 mg TIDPRN PRN ORAL Nausea & Vomiting/Dyspepsia 05/02/18 17:41 06/01/18 17:40 Clonidine HCl (Catapres Tab) 0.1 mg Q2H PRN ORAL SBP > 170 05/02/18 19:15 06/01/18 13:14 Clonidine HCl (Catapres tab) 0.2 mg BID ORAL 05/02/18 18:00 05/23/18 22:29 05/03/18 08:51 Dextrose (Dextrose 50%) 25 ml Q30M PRN IV Hypoglycemia 05/02/18 18:00 05/23/18 22:59 Dextrose (Dextrose 50%) 50 ml Q30M PRN IV Hypoglycemia 05/02/18 18:00 05/23/18 22:59 Diltiazem HCl (Cardizem) 90 mg EVERY 8 HOURS ORAL 05/02/18 22:00 06/01/18 13:59 05/03/18 14:18 Docusate Sodium (Colace) 100 mg TWICE A DAY ORAL 05/02/18 18:00 05/24/18 08:59 05/03/18 08:50 Epoetin Yung (Procrit (for ESRD on dialysis)) 7,000 units SUN-SUN-SUN SUBQ 05/03/18 21:00 05/29/18 20:59 Finasteride (Proscar) 5 mg DAILY ORAL 05/03/18 09:00 05/24/18 08:59 05/03/18 08:50 Gabapentin (Neurontin) 300 mg DAILY ORAL 05/03/18 09:00 05/24/18 08:59 05/03/18 08:51 Heparin Sodium (Porcine) (Heparin Sod 1000 units/ml 10ml) 500 unit ONCE PRN IV DIALYSIS 05/02/18 17:42 05/03/18 23:59 Insulin Aspart (NovoLOG) BEFORE MEALS AND HS SUBQ 05/02/18 21:00 05/24/18 06:29 Ipratropium [place] (Atrovent) 500 mcg Q4HRT HHN 05/02/18 19:00 05/06/18 14:59 05/03/18 15:05 Meropenem 500 mg/ Sodium Chloride 55 ml @ 110 mls/hr Q24H IVPB 05/02/18 21:00 06/04/18 23:00 05/02/18 21:25 Moxifloxacin HCl (Vigamox) 1 drop Q8HR BOTH EYES 05/02/18 22:00 05/04/18 13:59 05/03/18 14:18 Pantoprazole (Protonix) 40 mg ACBREAKFAST ORAL 05/04/18 06:30 06/03/18 06:29 Sodium Chloride 1,000 ml @ 500 mls/hr Q2H PRN IVLG sbp<90 during hd 05/02/18 17:45 05/03/18 23:59 Tamsulosin HCl (Flomax) 0.4 mg BEDTIME ORAL 05/02/18 21:00 05/23/18 23:44 05/02/18 21:29 Vancomycin HCl (Vanco rx to dose) 1 ea DAILY PRN MISC Per rx protocol 05/03/18 09:00 06/04/18 23:00 Vitamin B Complex/ Vit C/Folic Acid (Nephrovite) 1 tab DAILY ORAL 05/03/18 09:00 05/26/18 08:59 05/03/18 08:50 Warfarin Sodium (Coumadin per pharmacy) 1 ea DAILY PRN MISC Per rx protocol 05/03/18 09:00 05/29/18 08:14 Warfarin Sodium (Coumadin) 5 mg COUMADIN ORAL 05/03/18 17:00 05/08/18 16:59 Jaime Casey M.D. May 03, 2018 16:25
--- NOTE | 2018-05-03 16:27 | General Progress Note ---
Assessment/Plan Assessment/Plan Assessment - Heme (+) stools - Anemia and thrombocytopenia - DVT - on anticoagulation - Hep B S Ag (+) - DM - PVD - CHU - PVD / amputation - Poor Px Recommendations - Patient appropriately has declined GI w/u - Will follow conservatively - Monitor CBC while on anticoagulation - Replace Fe IV - PPI - if H&H declines on anticoagulation, may need to reconsider IVC filter - Check HBV quantitative PCR Subjective Allergies: Coded Allergies: NO KNOWN DRUG ALLERGIES (Verified Allergy, Unknown, 03/06/18) Subjective Eating OK no abdominal complaints Objective Last 24 Hour Vital Signs Date Time Temp Pulse Resp B/P (MAP) Pulse Ox O2 Delivery O2 Flow Rate FiO2 05/03/18 16:00 Venturi Mask 15.0 Venturi Mask 15.0 05/03/18 16:00 99 05/03/18 15:14 101 19 98 Bi-pap 45 05/03/18 15:12 101 17 98 Full Face 45 05/03/18 15:06 100 14 98 Bi-pap 45 05/03/18 14:18 95 137/73 05/03/18 12:00 95 05/03/18 12:00 98.2 99 16 137/73 (94) 98 05/03/18 12:00 Venturi Mask 15.0 Venturi Mask 15.0 05/03/18 11:42 Bi-pap 05/03/18 11:05 105 20 99 Bi-pap 45 05/03/18 10:54 106 19 98 Bi-pap 45 05/03/18 08:51 152/80 05/03/18 08:00 108 05/03/18 08:00 Venturi Mask 15.0 Venturi Mask 15.0 05/03/18 08:00 97.9 105 20 152/80 (104) 97 05/03/18 07:14 107 22 95 Venturi Mask 10.0 45 05/03/18 07:04 105 20 97 Venturi Mask 10.0 45 05/03/18 07:04 97 Venturi Mask 8.0 45 05/03/18 07:04 Venturi Mask 10.0 45 05/03/18 05:32 104 155/94 05/03/18 05:23 104 18 99 Facial 45 05/03/18 04:00 97.0 104 20 155/94 (114) 98 05/03/18 04:00 Venturi Mask 15.0 Venturi Mask 15.0 05/03/18 03:39 106 05/03/18 03:29 101 22 97 Bi-pap 45 05/03/18 03:10 104 20 97 Bi-pap 45 05/03/18 03:10 102 24 100 Facial 45 05/03/18 01:37 107 20 99 Facial 45 05/03/18 00:00 Venturi Mask 15.0 Venturi Mask 15.0 05/03/18 00:00 97.0 100 22 155/81 (105) 100 05/02/18 23:39 101 05/02/18 23:36 101 05/02/18 23:13 100 20 98 Bi-pap 45 05/02/18 23:04 100 20 100 Facial 45 05/02/18 22:58 Nasal Cannula 4.0 36 05/02/18 22:58 103 20 94 Venturi Mask 8.0 40 05/02/18 22:49 97 Venturi Mask 8.0 40 05/02/18 21:30 103 135/48 05/02/18 20:00 Venturi Mask 15.0 Venturi Mask 15.0 05/02/18 20:00 97.6 103 24 135/48 (77) 98 05/02/18 19:10 Venturi Mask 10.0 45 05/02/18 19:10 Venturi Mask 10.0 45 05/02/18 19:08 102 05/02/18 18:28 140/70 05/02/18 17:30 103 20 140/70 (93) 100 05/02/18 17:00 106 20 138/75 (96) 100 05/02/18 16:30 105 25 148/80 (102) 100 Intake and Output 05/02/18 05/03/18 18:59 06:59 Intake Total 190 ml 120 ml Output Total 4000 ml 4000 ml Balance -3810 ml -3880 ml Intake Oral 180 ml 120 ml IV Total 10 ml Output Urine Total 0 ml 0 ml Hemodialysis UF 4000 ml 4000 ml # Bowel Movements 4 Laboratory Tests 05/03/18 04:47: White Blood Count 6.4, Red Blood Count 2.85L, Hemoglobin 8.1L, Hematocrit 26.8L , Mean Corpuscular Volume 94, Mean Corpuscular Hemoglobin 28.4, Mean Corpuscular Hemoglobin Concent 30.3L, Red Cell Distribution Width 18.3H, Platelet Count 143L, Mean Platelet Volume 6.7, Neutrophils (%) (Auto) 84.7H, Lymphocytes (%) (Auto) 3.3L, Monocytes (%) (Auto) 8.9, Eosinophils (%) (Auto) 2.4, Basophils (%) (Auto) 0.8, Prothrombin Time 20.9H, Prothromb Time International Ratio 2.1H, Sodium Level 133L, Potassium Level 5.4H, Chloride Level 95L, Carbon Dioxide Level 27, Anion Gap 11, Blood Urea Nitrogen 64H, Creatinine 8.3H, Estimat Glomerular Filtration Rate 7.9, Glucose Level 105, Calcium Level 9.7 Height (Feet): 5 Height (Inches): 7.00 Weight (Pounds): 281 Objective Obese AA man NCAT barbara BS, power RR obese abd nonfocal (+) UE amputations Bee Krueger MD May 03, 2018 16:27
[2018-05-03] MEDS: Warfarin Sodium 5mg ORAL SCH (16:44)
--- NOTE | 2018-05-03 17:16 | NUR ---
CASE MANAGEMENT: REVIEW SI: RESPIRATORY FAILURE . CHF . DIABETIC FOOT INFECTION . RENAL FAILURE ON DIALYSIS T 98.1 HR 101 RR 24 BP 143/79 SAT 96% BIPAP FIO2 45 H/H 8.1/26.8 NA 133 K 5.4 IS: CARDIZEM IV Q24HR VENOFER IV QHS MEROPENEM IV Q24HR PROCRIT SQ MWF HEMODIALYSIS PRN STEP DOWN STATUS DCP: PATIENT IS FROM HOME
--- NOTE | 2018-05-03 19:11 | NUR ---
HAND-OFF: Report given to JOSEPH POON.
--- NOTE | 2018-05-03 19:30 | NUR ---
NURSE NOTES: Report received from CLEVE Valentine. Patient seen in bed in rich position with venturi mast on at 45%, no acute respiratory distress noted at this time. Patient is alert x4, able to make needs known. Denies any pain at this time. AV Shunt to left thigh noted, and is intact, covered with dressing at this time. IV site present to right arm and left arm, both 20G and is intact. Bed is in lowest position. Call light is within easy reach while in room. will continue to monitor.
--- NOTE | 2018-05-03 19:57 | General Progress Note ---
Assessment/Plan Assessment/Plan # DVT of the deep veins superficial and politeal of the left leg, thrombocytopenia likely due to hep B chronic status --> VQ scan shows low probability of PE --> remains with anemia and low platelets therefore contraindication for anticoagulation --> will hold off on IVC filter --> continue coumadin inr goal 2-3 --> Cards and pulm recs appreciated as well as renal, vasc --> only if h/h drops, reconsider ivc filter, but currently doing well on coumadin # Thrombocytopenia -- plt goal >20k, transfuse as required, hepatitis B chronic infection --> plt trend in the 66k-->63k-->58k-->60k-->100s range --> hep B noted and if no change in plt, consider anticoagulation --> coumadin started # Anemia of iron deficiency --> started on iron and epogen (AGREE WITH RENAL) --> anemia panel has been reviewed --> hgb goal >7, transfuse as needed --> peripheral smear to be reviewed # Chronic hepatitis B -- appears to be chronic though need to confirm --> hep b surface antigen is postiive which means has chronic hepatitis B --> hep B surface antibody negative which means does not have immunity # Acute CHF exacerbation/pulmonary edema --> as per pulm # COPD w/o obvious exacerbation # CHU # ESRD on HD --> hd as per renal # Hx multiple amputations # Diabetic foot infection --> as per ID Time of note does not necessarily reflect time of encounter Greatly appreciate consultation! Subjective Constitutional: Denies: no symptoms, chills, diaphoresis, fever, malaise, weakness, other HEENT: Denies: no symptoms, eye pain, blurred vision, tearing, double vision, ear pain, ear discharge, nose pain, nose congestion, throat pain, throat swelling, mouth pain, mouth swelling, other Cardiovascular: Denies: no symptoms, chest pain, edema, irregular heart rate, lightheadedness, palpitations, syncope, other Respiratory: Denies: no symptoms, cough, orthopnea, shortness of breath, SOB with excertion, SOB at rest, sputum, stridor, wheezing, other Genitourinary: Denies: no symptoms, burning, discharge, frequency, flank pain, hematuria, incontinence, pain, urgency, other Neurologic/Psychiatric: Denies: no symptoms, anxiety, depressed, emotional problems, headache, numbness, paresthesia, pre-existing deficit, seizure, tingling, tremors, weakness, other Endocrine: Denies: no symptoms, excessive sweating, flushing, intolerance to cold, intolerance to heat, increased hunger, increased thirst, increased urine, unexplained weight gain, unexplained weight loss, other Allergies: Coded Allergies: NO KNOWN DRUG ALLERGIES (Verified Allergy, Unknown, 03/06/18) Subjective 04/26: no events, potential plan for ivc f on sunday.12: no further ivc filter planned, started on coumadin inr goal 2-3 04/28: on iron and epogen dw Dr. Harper, continue as per his recs 04/29: awake and comfortable, HD today, On BIPAP and Oxygen. No new events. 04/30: Pt is seen by bedside, Platelets rising, 101 today. Coumadin started. Sleeping with BiPAP, HD tomorrow. 05/01: Pt was transferred to ICU for SVT on BIPAP, complains of less pain and swelling in his left foot, getting HD. 05/02: remains inthe icu, nsr at this time, tolerating coumadin, h/h relatively stable, plt better 05/03: has hepatitis Bs antigen and the ab is negative which means he doesn't have immunity, on coumadin, iron, procrit Objective Last 24 Hour Vital Signs Date Time Temp Pulse Resp B/P (MAP) Pulse Ox O2 Delivery O2 Flow Rate FiO2 05/03/18 18:46 104 17 99 Facial 45 05/03/18 18:43 104 14 99 Bi-pap 45 05/03/18 18:30 Nasal Cannula 5.0 45 05/03/18 18:30 93 Nasal Cannula 5.0 45 05/03/18 18:30 102 18 93 Nasal Cannula 45 05/03/18 18:03 143/79 05/03/18 16:00 Venturi Mask 15.0 Venturi Mask 15.0 05/03/18 16:00 98.1 101 24 143/79 (100) 96 05/03/18 16:00 99 05/03/18 15:14 101 19 98 Bi-pap 45 05/03/18 15:12 101 17 98 Full Face 45 05/03/18 15:06 100 14 98 Bi-pap 45 05/03/18 14:18 95 137/73 05/03/18 12:00 95 05/03/18 12:00 98.2 99 16 137/73 (94) 98 05/03/18 12:00 Venturi Mask 15.0 Venturi Mask 15.0 05/03/18 11:42 Bi-pap 05/03/18 11:05 105 20 99 Bi-pap 45 05/03/18 10:54 106 19 98 Bi-pap 45 05/03/18 08:51 152/80 05/03/18 08:00 108 05/03/18 08:00 Venturi Mask 15.0 Venturi Mask 15.0 05/03/18 08:00 97.9 105 20 152/80 (104) 97 05/03/18 07:14 107 22 95 Venturi Mask 10.0 45 05/03/18 07:04 105 20 97 Venturi Mask 10.0 45 05/03/18 07:04 97 Venturi Mask 8.0 45 05/03/18 07:04 Venturi Mask 10.0 45 05/03/18 05:32 104 155/94 05/03/18 05:23 104 18 99 Facial 45 05/03/18 04:00 97.0 104 20 155/94 (114) 98 05/03/18 04:00 Venturi Mask 15.0 Venturi Mask 15.0 05/03/18 03:39 106 05/03/18 03:29 101 22 97 Bi-pap 45 05/03/18 03:10 104 20 97 Bi-pap 45 05/03/18 03:10 102 24 100 Facial 45 05/03/18 01:37 107 20 99 Facial 45 05/03/18 00:00 Venturi Mask 15.0 Venturi Mask 15.0 05/03/18 00:00 97.0 100 22 155/81 (105) 100 05/02/18 23:39 101 05/02/18 23:36 101 05/02/18 23:13 100 20 98 Bi-pap 45 05/02/18 23:04 100 20 100 Facial 45 05/02/18 22:58 Nasal Cannula 4.0 36 05/02/18 22:58 103 20 94 Venturi Mask 8.0 40 05/02/18 22:49 97 Venturi Mask 8.0 40 05/02/18 21:30 103 135/48 05/02/18 20:00 Venturi Mask 15.0 Venturi Mask 15.0 05/02/18 20:00 97.6 103 24 135/48 (77) 98 Intake and Output 05/02/18 05/03/18 19:00 07:00 Intake Total 180 ml 120 ml Output Total 8000 ml 0 ml Balance -7820 ml 120 ml Intake Oral 180 ml 120 ml Output Urine Total 0 ml 0 ml Hemodialysis UF 8000 ml # Bowel Movements 4 Laboratory Tests 05/03/18 04:47: White Blood Count 6.4, Red Blood Count 2.85L, Hemoglobin 8.1L, Hematocrit 26.8L , Mean Corpuscular Volume 94, Mean Corpuscular Hemoglobin 28.4, Mean Corpuscular Hemoglobin Concent 30.3L, Red Cell Distribution Width 18.3H, Platelet Count 143L, Mean Platelet Volume 6.7, Neutrophils (%) (Auto) 84.7H, Lymphocytes (%) (Auto) 3.3L, Monocytes (%) (Auto) 8.9, Eosinophils (%) (Auto) 2.4, Basophils (%) (Auto) 0.8, Prothrombin Time 20.9H, Prothromb Time International Ratio 2.1H, Sodium Level 133L, Potassium Level 5.4H, Chloride Level 95L, Carbon Dioxide Level 27, Anion Gap 11, Blood Urea Nitrogen 64H, Creatinine 8.3H, Estimat Glomerular Filtration Rate 7.9, Glucose Level 105, Calcium Level 9.7 Height (Feet): 5 Height (Inches): 7.00 Weight (Pounds): 281 Objective Gen: NAD HEAD AND NECK: No JVD. LUNGS: Decreased breath sounds. CARDIOVASCULAR: Regular S1 and S2 with no gallop. ABDOMEN: Soft. EXTREMITIES: Status post multiple amputations, 2+ lower extremity edema. L thigh shunt Juve Soto MD May 03, 2018 19:57
[2018-05-03 20:00] VITALS: BP 145/87
--- NOTE | 2018-05-03 20:02 | General Progress Note ---
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 hepatitis per heme will hold off on ivc filter coumadin per pharmacy doing well fe deficiency anemia, started on iron and epo GI eval appreciated, patient refuses GI workup dialysis dependent pulmonary fup cards fup echo noted on cardizem drip converted to sinus rhythm monior platelets hgb dvt and ulcer prohylaxis dc plans to snf when ok with pulmonary/cardiology Subjective Allergies: Coded Allergies: NO KNOWN DRUG ALLERGIES (Verified Allergy, Unknown, 03/06/18) Subjective above noted transfered to [facility] converted to sinus rhythm, getting dialysis on bipap Objective Last 24 Hour Vital Signs Date Time Temp Pulse Resp B/P (MAP) Pulse Ox O2 Delivery O2 Flow Rate FiO2 05/03/18 18:46 104 17 99 Facial 45 05/03/18 18:43 104 14 99 Bi-pap 45 05/03/18 18:30 Nasal Cannula 5.0 45 05/03/18 18:30 93 Nasal Cannula 5.0 45 05/03/18 18:30 102 18 93 Nasal Cannula 45 05/03/18 18:03 143/79 05/03/18 16:00 Venturi Mask 15.0 Venturi Mask 15.0 05/03/18 16:00 98.1 101 24 143/79 (100) 96 05/03/18 16:00 99 05/03/18 15:14 101 19 98 Bi-pap 45 05/03/18 15:12 101 17 98 Full Face 45 05/03/18 15:06 100 14 98 Bi-pap 45 05/03/18 14:18 95 137/73 05/03/18 12:00 95 05/03/18 12:00 98.2 99 16 137/73 (94) 98 05/03/18 12:00 Venturi Mask 15.0 Venturi Mask 15.0 05/03/18 11:42 Bi-pap 05/03/18 11:05 105 20 99 Bi-pap 45 05/03/18 10:54 106 19 98 Bi-pap 45 05/03/18 08:51 152/80 05/03/18 08:00 108 05/03/18 08:00 Venturi Mask 15.0 Venturi Mask 15.0 05/03/18 08:00 97.9 105 20 152/80 (104) 97 05/03/18 07:14 107 22 95 Venturi Mask 10.0 45 05/03/18 07:04 105 20 97 Venturi Mask 10.0 45 05/03/18 07:04 97 Venturi Mask 8.0 45 05/03/18 07:04 Venturi Mask 10.0 45 05/03/18 05:32 104 155/94 05/03/18 05:23 104 18 99 Facial 45 05/03/18 04:00 97.0 104 20 155/94 (114) 98 05/03/18 04:00 Venturi Mask 15.0 Venturi Mask 15.0 05/03/18 03:39 106 05/03/18 03:29 101 22 97 Bi-pap 45 05/03/18 03:10 104 20 97 Bi-pap 45 05/03/18 03:10 102 24 100 Facial 45 05/03/18 01:37 107 20 99 Facial 45 05/03/18 00:00 Venturi Mask 15.0 Venturi Mask 15.0 05/03/18 00:00 97.0 100 22 155/81 (105) 100 05/02/18 23:39 101 05/02/18 23:36 101 05/02/18 23:13 100 20 98 Bi-pap 45 05/02/18 23:04 100 20 100 Facial 45 05/02/18 22:58 Nasal Cannula 4.0 36 05/02/18 22:58 103 20 94 Venturi Mask 8.0 40 05/02/18 22:49 97 Venturi Mask 8.0 40 05/02/18 21:30 103 135/48 05/02/18 20:00 Venturi Mask 15.0 Venturi Mask 15.0 05/02/18 20:00 97.6 103 24 135/48 (77) 98 Intake and Output 05/02/18 05/03/18 19:00 07:00 Intake Total 180 ml 120 ml Output Total 8000 ml 0 ml Balance -7820 ml 120 ml Intake Oral 180 ml 120 ml Output Urine Total 0 ml 0 ml Hemodialysis UF 8000 ml # Bowel Movements 4 Laboratory Tests 05/03/18 04:47: White Blood Count 6.4, Red Blood Count 2.85L, Hemoglobin 8.1L, Hematocrit 26.8L , Mean Corpuscular Volume 94, Mean Corpuscular Hemoglobin 28.4, Mean Corpuscular Hemoglobin Concent 30.3L, Red Cell Distribution Width 18.3H, Platelet Count 143L, Mean Platelet Volume 6.7, Neutrophils (%) (Auto) 84.7H, Lymphocytes (%) (Auto) 3.3L, Monocytes (%) (Auto) 8.9, Eosinophils (%) (Auto) 2.4, Basophils (%) (Auto) 0.8, Prothrombin Time 20.9H, Prothromb Time International Ratio 2.1H, Sodium Level 133L, Potassium Level 5.4H, Chloride Level 95L, Carbon Dioxide Level 27, Anion Gap 11, Blood Urea Nitrogen 64H, Creatinine 8.3H, Estimat Glomerular Filtration Rate 7.9, Glucose Level 105, Calcium Level 9.7 Height (Feet): 5 Height (Inches): 7.00 Weight (Pounds): 281 General Appearance: WD/WN Neck: supple Cardiovascular: normal rate Respiratory/Chest: lungs clear Abdomen: soft Objective left lower extremity dressing intact clean no bleeding Moe Sewell MD May 03, 2018 20:02
[2018-05-03] MEDS: Meropenem 500 MG in NS 55 ML IVPB SCH (21:14)
[2018-05-03] MEDS: Tamsulosin 0.4mg cap ORAL SCH (21:15)
[2018-05-03] MEDS: Epogen (for ESRD on dialysis) SUBQ SCH (21:15)
[2018-05-04] VITALS: BP 139/74
[2018-05-04] MEDS: HYDROcodone/Acetamin 10/325 tab ORAL PRN ×3 (00:05→16:05)
[2018-05-04] MEDS: Ipratropium 0.02% Inh Soln 2.5ml UD HHN SCH ×6 (02:52→23:09)
[2018-05-04 04:00] VITALS: BP 142/74
[2018-05-04] MEDS: NovoLOG Insulin Flexpen SUBQ SCH ×4 (06:08→21:03)
[2018-05-04] MEDS: Vigamox Opth Soln 3ml BOTH EYES SCH (06:15)
[2018-05-04] MEDS: dilTIAZem HCl 90mg tab ORAL SCH ×3 (06:15→21:01)
--- NOTE | 2018-05-04 07:00 | NUR ---
HAND-OFF: Report given to CLEVE Rollins.
--- NOTE | 2018-05-04 07:01 | NUR ---
NURSE NOTES: Received report from CLEVE Marcelo. Patient is resting in bed, in stable condition. No s/sx of SOB, breathing is even and unlabored. Denies any presence of pain or discomfort at this time. Bed is in lowest position, brakes engaged. Call light is kept within easy reach. Will continue to monitor patient.
[2018-05-04 07:19] LABS: INR 1.9 (0.9-1.1)
[2018-05-04 08:00] VITALS: BP 135/76
[2018-05-04] MEDS: cloNIDine 0.2mg Tab ORAL SCH ×2 (08:29→17:29)
[2018-05-04] MEDS: Nephrovite tab (Rena-Vite) ORAL SCH (08:29)
[2018-05-04] MEDS: Docusate 100mg cap ORAL SCH ×2 (08:30→17:29)
[2018-05-04] MEDS: Allopurinol 100mg Tab ORAL SCH (08:30)
--- NOTE | 2018-05-04 09:36 | NUR ---
SS note Chart reviewed; patient has a supportive spouse assisting with decision making and requesting SNF placement upon discharge. No SW needs/concerns identified at this time.
--- NOTE | 2018-05-04 11:04 | Diagnostic Imaging Report ---
EXAM: XR Chest, 1 View CLINICAL HISTORY: SOB TECHNIQUE: Frontal view of the chest. COMPARISON: Chest x-ray, 05/02/18 802 FINDINGS: Lungs: Continued bilateral interstitial opacities. Previously seen right mid to lower lung opacity has markedly improved. Pleural space: Unremarkable. No pneumothorax. Heart: Cardiomegaly. Mediastinum: Unremarkable. Bones/joints: Unremarkable. IMPRESSION: Continued bilateral interstitial opacities/edema. Previously seen right mid to lower lung opacity has markedly improved.
[2018-05-04 12:00] VITALS: BP 145/93
--- NOTE | 2018-05-04 12:06 | Cardiac Electrophysiology PN ---
Assessment/Plan Status Narrative Normal left ventricular chamber size, systolic function and wall motion. Left ventricular ejection fraction estimated to be 60-65 %. Moderate left ventricular hypertrophy by 2-D. Small posterior pericardial effusion. Moderate left atrial enlargement. Mild right atrial enlargement. Right ventricular chamber size is within normal limits. Moderate aortic valve calcification with decreased cusp excursion c/w aortic stenosis. Moderately thickened mitral valve leaflets with normal excursion. Mitral annulus and aortic root calcification. Pulmonic valve not well visualized. Normal tricuspid valve structure. IVC dilated at 2.4 cm with slight physiologic collapse suggestive of in Assessment/Plan 1. Congestive heart failure. BNP > 35,000 on hemodialysis. 2. Troponin elevation due to renal failure. No chest pain. Echocardiogram EF 65%. 3. Hypertension. On hemodialysis, clonidine 0.2 mg bid and Cardizem 90 po q 8 hr 4. Sustained SVT at rate 170. Stable on Cardizem 90 po q 8 hr 5. Morbid obesity. 6. Peripheral vascular disease left metatarsal and finger amputations 7. Respiratory failure/ COPD. On BIPAP 8. Acute left leg DVT on heparin drip and Coumadin per Rx. INR 2.0 9. Lower extremity cellulitis, on iv Abx per ID DW RN Subjective Subjective In SR. Off Cardizem drip.Off and on BIPAP. Had HD yesterday Objective Last 24 Hour Vital Signs Date Time Temp Pulse Resp B/P (MAP) Pulse Ox O2 Delivery O2 Flow Rate FiO2 05/04/18 11:51 98 20 99 Venturi Mask 10.0 45 05/04/18 11:37 92 20 94 Venturi Mask 10.0 45 05/04/18 09:49 105 05/04/18 08:29 135/70 05/04/18 08:00 Venturi Mask 15.0 Venturi Mask 15.0 05/04/18 08:00 97.6 98 20 135/76 (95) 97 05/04/18 07:07 97 20 98 Venturi Mask 10.0 45 05/04/18 07:03 Venturi Mask 10.0 45 05/04/18 07:03 94 Venturi Mask 10.0 45 05/04/18 06:59 95 20 94 Venturi Mask 10.0 45 05/04/18 06:15 95 142/74 05/04/18 05:16 95 16 98 Facial 45 05/04/18 04:00 Venturi Mask 15.0 Venturi Mask 15.0 05/04/18 04:00 97.6 102 22 142/74 (96) 100 05/04/18 03:58 94 05/04/18 03:43 95 23 Bi-pap 60 05/04/18 03:06 99 18 98 Facial 45 05/04/18 03:01 98 20 99 Nasal Cannula 4.0 36 05/04/18 02:53 97 20 98 Facial 45 05/04/18 02:52 97 20 98 Bi-pap 45 05/04/18 01:21 100 19 98 Facial 45 05/04/18 00:00 97.7 98 19 139/74 (95) 100 05/04/18 00:00 96 05/04/18 00:00 Venturi Mask 15.0 Venturi Mask 15.0 05/03/18 21:21 100 17 98 Facial 45 05/03/18 21:15 104 145/87 05/03/18 20:00 98.1 104 22 145/87 (106) 98 05/03/18 20:00 Venturi Mask 15.0 Venturi Mask 15.0 05/03/18 19:26 96 05/03/18 18:46 104 17 99 Facial 45 05/03/18 18:43 104 14 99 Bi-pap 45 05/03/18 18:30 Nasal Cannula 5.0 45 05/03/18 18:30 93 Nasal Cannula 5.0 45 05/03/18 18:30 102 18 93 Nasal Cannula 45 05/03/18 18:03 143/79 05/03/18 16:00 Venturi Mask 15.0 Venturi Mask 15.0 05/03/18 16:00 98.1 101 24 143/79 (100) 96 05/03/18 16:00 99 05/03/18 15:14 101 19 98 Bi-pap 45 05/03/18 15:12 101 17 98 Full Face 45 05/03/18 15:06 100 14 98 Bi-pap 45 05/03/18 14:18 95 137/73 Intake and Output 05/03/18 05/04/18 19:00 07:00 Intake Total 400 ml 355 ml Output Total 4000 ml Balance -3600 ml 355 ml Intake Oral 400 ml 300 ml IV Total 55 ml Hemodialysis UF 4000 ml Laboratory Tests Test 05/04/18 04:00 05/04/18 11:00 Prothrombin Time 19.1 SEC (9.30-11.50) H Prothromb Time International Ratio 1.9 (0.9-1.1) H Random Vancomycin Level Pending Objective HEAD AND NECK: Positive JVD.On BIPAP CARDIOVASCULAR: Regular S1 and S2 with no gallop. ABDOMEN: Soft.Obese EXTREMITIES: Status post multiple amputations, 2+ lower extremity edema. Left foot amputated Shelton Perdomo MD May 04, 2018 12:06
--- NOTE | 2018-05-04 14:38 | Nephrology Progress Note ---
Assessment/Plan Problem List: (1) ESRD (end stage renal disease) (2) Diabetic infection of left foot (3) Acute DVT (deep venous thrombosis) Assessment: LLE (4) PVD (peripheral vascular disease) (5) Anemia Assessment: better (6) Iron deficiency (7) Thrombocytopenia Assessment: better (8) HTN (hypertension) Assessment: better Plan HD otomorrow continue Epogen abxs anticoagulation follow labs Discussed with RN Subjective Subjective seen in [facility] on FM Objective Objective Last 24 Hour Vital Signs Date Time Temp Pulse Resp B/P (MAP) Pulse Ox O2 Delivery O2 Flow Rate FiO2 05/04/18 13:55 98 145/93 05/04/18 12:00 97.4 102 20 145/93 (110) 96 05/04/18 12:00 98 05/04/18 12:00 Venturi Mask 15.0 Venturi Mask 15.0 05/04/18 11:51 98 20 99 Venturi Mask 10.0 45 05/04/18 11:37 92 20 94 Venturi Mask 10.0 45 05/04/18 09:49 105 05/04/18 08:29 135/70 05/04/18 08:00 Venturi Mask 15.0 Venturi Mask 15.0 05/04/18 08:00 97.6 98 20 135/76 (95) 97 05/04/18 07:07 97 20 98 Venturi Mask 10.0 45 05/04/18 07:03 Venturi Mask 10.0 45 05/04/18 07:03 94 Venturi Mask 10.0 45 05/04/18 06:59 95 20 94 Venturi Mask 10.0 45 05/04/18 06:15 95 142/74 05/04/18 05:16 95 16 98 Facial 45 05/04/18 04:00 Venturi Mask 15.0 Venturi Mask 15.0 05/04/18 04:00 97.6 102 22 142/74 (96) 100 05/04/18 03:58 94 05/04/18 03:43 95 23 Bi-pap 60 05/04/18 03:06 99 18 98 Facial 45 05/04/18 03:01 98 20 99 Nasal Cannula 4.0 36 05/04/18 02:53 97 20 98 Facial 45 05/04/18 02:52 97 20 98 Bi-pap 45 05/04/18 01:21 100 19 98 Facial 45 05/04/18 00:00 97.7 98 19 139/74 (95) 100 05/04/18 00:00 96 05/04/18 00:00 Venturi Mask 15.0 Venturi Mask 15.0 05/03/18 21:21 100 17 98 Facial 45 05/03/18 21:15 104 145/87 05/03/18 20:00 98.1 104 22 145/87 (106) 98 05/03/18 20:00 Venturi Mask 15.0 Venturi Mask 15.0 05/03/18 19:26 96 05/03/18 18:46 104 17 99 Facial 45 05/03/18 18:43 104 14 99 Bi-pap 45 05/03/18 18:30 Nasal Cannula 5.0 45 05/03/18 18:30 93 Nasal Cannula 5.0 45 05/03/18 18:30 102 18 93 Nasal Cannula 45 05/03/18 18:03 143/79 05/03/18 16:00 Venturi Mask 15.0 Venturi Mask 15.0 05/03/18 16:00 98.1 101 24 143/79 (100) 96 05/03/18 16:00 99 05/03/18 15:14 101 19 98 Bi-pap 45 05/03/18 15:12 101 17 98 Full Face 45 05/03/18 15:06 100 14 98 Bi-pap 45 Intake and Output 05/03/18 05/04/18 18:59 06:59 Intake Total 400 ml 355 ml Output Total 4000 ml Balance -3600 ml 355 ml Intake Oral 400 ml 300 ml IV Total 55 ml Hemodialysis UF 4000 ml Laboratory Tests 05/04/18 04:00: Prothrombin Time 19.1H, Prothromb Time International Ratio 1.9H 05/04/18 11:00: Random Vancomycin Level 20.2 Height (Feet): 5 Height (Inches): 7.00 Weight (Pounds): 283 Cardiovascular: normal rate Respiratory/Chest: lungs clear Extremities: moderate edema - less Johan Harper MD May 04, 2018 14:38
[2018-05-04] MEDS ORDERED: Heparin Sod 1000 units/ml 10ml IV PRN (15:00)
--- NOTE | 2018-05-04 15:08 | NUR ---
NURSE NOTES: Called [facility] Nephrology and spoke with Shirin. Informed Shirin that patient has an order for hemodialysis tomorrow, 05/05/2018, per Dr. Nora Harper. Shirin acknowledged and informed this nurse that the on-call hemodialysis nurse will be notified. Noted. Information also placed in hemodialysis binder. Noted. Will continue to monitor patient.
--- NOTE | 2018-05-04 15:42 | Infectious Diseases Prog Note ---
Assessment/Plan Problems: (1) Acute osteomyelitis of metatarsal bone of left foot Assessment & Plan: left stump wound grew MRSA and Enterobacter cloacae, will continue meropenem and vancomycin treatment for osteomyelitis of the left foot metatarsal bone for 6 weeks. continue local wound care and dressings change as per casing puller. vascular recommended no revascularization at this point. will treat with iv antibiotics for 6 weeks for his left metatarsal bone osteomyelitis. will follow patient along with casing puller (2) Achilles tendon infection Assessment & Plan: with open wound, already on wide spectrum antibiotics coverage , continue local wound care and dressings change , podiatry is following (3) Diabetic foot infection Assessment & Plan: continue wide spectrum antibiotics , with tight glycemic control. (4) ESRD (end stage renal disease) Assessment & Plan: on HD , renal is following (5) PVD (peripheral vascular disease) Assessment & Plan: had vascular eval , no need for angioplasty of the left leg as per vascular, on anticoagulation (6) Hepatitis B surface antigen positive Assessment & Plan: suspect due to recent vaccination , rule out active HBV infection, await viral load to confirm (7) Acute dyspnea Assessment & Plan: suspect due to fluids over load, continue aggressive HD , monitor ABG, and CXR , continue BIPAP, pulmonary is following (8) Acute bacterial conjunctivitis Assessment & Plan: continue moxifloxacin eye drops for 5 days Subjective Constitutional: Reports: no symptoms HEENT: Reports: no symptoms Respiratory: Reports: dry cough Breasts: Reports: no symptoms Cardiovascular: Reports: no symptoms Gastrointestinal/Abdominal: Reports: no symptoms Genitourinary: Reports: no symptoms Neurologic: Reports: no symptoms Psychiatric: Reports: no symptoms Skin: Reports: ulcer Endocrine: Reports: no symptoms Hematologic: Reports: no symptoms Musculoskeletal: Reports: no symptoms Allergies: Coded Allergies: NO KNOWN DRUG ALLERGIES (Verified Allergy, Unknown, 03/06/18) Subjective he was transferred out of ICU , now off BIPAP, feels better less congested and not short of breath , with less pain and swelling in his left foot, no productive cough Objective Vital Signs Last 24 Hour Vital Signs Date Time Temp Pulse Resp B/P (MAP) Pulse Ox O2 Delivery O2 Flow Rate FiO2 05/04/18 15:28 94 20 96 Venturi Mask 10.0 45 05/04/18 13:55 98 145/93 05/04/18 12:00 97.4 102 20 145/93 (110) 96 05/04/18 12:00 98 05/04/18 12:00 Venturi Mask 15.0 Venturi Mask 15.0 05/04/18 11:51 98 20 99 Venturi Mask 10.0 45 05/04/18 11:37 92 20 94 Venturi Mask 10.0 45 05/04/18 09:49 105 05/04/18 08:29 135/70 05/04/18 08:00 Venturi Mask 15.0 Venturi Mask 15.0 05/04/18 08:00 97.6 98 20 135/76 (95) 97 05/04/18 07:07 97 20 98 Venturi Mask 10.0 45 05/04/18 07:03 Venturi Mask 10.0 45 05/04/18 07:03 94 Venturi Mask 10.0 45 05/04/18 06:59 95 20 94 Venturi Mask 10.0 45 05/04/18 06:15 95 142/74 05/04/18 05:16 95 16 98 Facial 45 05/04/18 04:00 Venturi Mask 15.0 Venturi Mask 15.0 05/04/18 04:00 97.6 102 22 142/74 (96) 100 05/04/18 03:58 94 05/04/18 03:43 95 23 Bi-pap 60 05/04/18 03:06 99 18 98 Facial 45 05/04/18 03:01 98 20 99 Nasal Cannula 4.0 36 05/04/18 02:53 97 20 98 Facial 45 05/04/18 02:52 97 20 98 Bi-pap 45 05/04/18 01:21 100 19 98 Facial 45 05/04/18 00:00 97.7 98 19 139/74 (95) 100 05/04/18 00:00 96 05/04/18 00:00 Venturi Mask 15.0 Venturi Mask 15.0 05/03/18 21:21 100 17 98 Facial 45 05/03/18 21:15 104 145/87 05/03/18 20:00 98.1 104 22 145/87 (106) 98 05/03/18 20:00 Venturi Mask 15.0 Venturi Mask 15.0 05/03/18 19:26 96 05/03/18 18:46 104 17 99 Facial 45 05/03/18 18:43 104 14 99 Bi-pap 45 05/03/18 18:30 Nasal Cannula 5.0 45 05/03/18 18:30 93 Nasal Cannula 5.0 45 05/03/18 18:30 102 18 93 Nasal Cannula 45 05/03/18 18:03 143/79 05/03/18 16:00 Venturi Mask 15.0 Venturi Mask 15.0 05/03/18 16:00 98.1 101 24 143/79 (100) 96 05/03/18 16:00 99 Height (Feet): 5 Height (Inches): 7.00 Weight (Pounds): 283 General Appearance: WD/WN, no acute distress HEENT: normocephalic, atraumatic, anicteric, mucous membranes moist, PERRL Respiratory/Chest: chest wall non-tender, no respiratory distress, no accessory muscle use, decreased breath sounds, crackles/rales Cardiovascular: normal peripheral pulses, normal rate, regular rhythm, no gallop/murmur, no JVD Abdomen: normal bowel sounds, soft, non tender, no organomegaly, no mass, no scars, distended Extremities: no cyanosis, no clubbing Skin: no rash, no lesions, ulcers 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, alert, oriented x 3, responsive Lymphatic: no neck adenopathy, no groin adenopathy Musculoskeletal: normal muscle bulk, no effusion Laboratory Tests Test 05/04/18 04:00 05/04/18 11:00 Prothrombin Time 19.1 SEC (9.30-11.50) H Prothromb Time International Ratio 1.9 (0.9-1.1) H Random Vancomycin Level 20.2 ug/mL Current Medications Medications (Trade) Dose Ordered Sig/Oliverio Route PRN Reason Start Time Stop Time Status Last Admin Dose Admin Acetaminophen (Tylenol) 650 mg Q6H PRN ORAL Mild Pain/Temp > 100.5 05/02/18 17:41 05/23/18 17:40 Acetaminophen/ Hydrocodone Bitart ([place] 10/325) 1 tab Q6H PRN ORAL For Pain 05/02/18 17:43 05/07/18 17:42 05/04/18 08:49 Allopurinol (Zyloprim) 100 mg DAILY ORAL 05/03/18 09:00 05/24/18 08:59 05/04/18 08:30 Calcium Carbonate (Tums) 500 mg TIDPRN PRN ORAL Nausea & Vomiting/Dyspepsia 05/02/18 17:41 06/01/18 17:40 Clonidine HCl (Catapres Tab) 0.1 mg Q2H PRN ORAL SBP > 170 05/02/18 19:15 06/01/18 13:14 Clonidine HCl (Catapres tab) 0.2 mg BID ORAL 05/02/18 18:00 05/23/18 22:29 05/04/18 08:29 Dextrose (Dextrose 50%) 25 ml Q30M PRN IV Hypoglycemia 05/02/18 18:00 05/23/18 22:59 Dextrose (Dextrose 50%) 50 ml Q30M PRN IV Hypoglycemia 05/02/18 18:00 05/23/18 22:59 Diltiazem HCl (Cardizem) 90 mg EVERY 8 HOURS ORAL 05/02/18 22:00 06/01/18 13:59 05/04/18 13:55 Docusate Sodium (Colace) 100 mg TWICE A DAY ORAL 05/02/18 18:00 05/24/18 08:59 05/04/18 08:30 Epoetin Yung (Procrit (for ESRD on dialysis)) 7,000 units SUN-SUN-SUN SUBQ 05/03/18 21:00 05/29/18 20:59 05/03/18 21:15 Finasteride (Proscar) 5 mg DAILY ORAL 05/03/18 09:00 05/24/18 08:59 05/04/18 08:29 Gabapentin (Neurontin) 300 mg DAILY ORAL 05/03/18 09:00 05/24/18 08:59 05/04/18 08:30 Heparin Sodium (Porcine) (Heparin Sod 1000 units/ml 10ml) 500 unit ONCE PRN IV FOR HD USE ONLY 05/04/18 15:00 05/05/18 23:59 Insulin Aspart (NovoLOG) BEFORE MEALS AND HS SUBQ 05/02/18 21:00 05/24/18 06:29 05/04/18 12:01 Ipratropium [place] (Atrovent) 500 mcg Q4HRT HHN 05/02/18 19:00 05/06/18 14:59 05/04/18 15:28 Meropenem 500 mg/ Sodium Chloride 55 ml @ 110 mls/hr Q24H IVPB 05/02/18 21:00 06/04/18 23:00 05/03/18 21:14 Pantoprazole (Protonix) 40 mg ACBREAKFAST ORAL 05/04/18 06:30 06/03/18 06:29 05/04/18 06:15 Sodium Chloride 1,000 ml @ 500 mls/hr Q2H PRN IVLG sbp<90 during hd 05/05/18 14:29 05/05/18 23:59 Tamsulosin HCl (Flomax) 0.4 mg BEDTIME ORAL 05/02/18 21:00 05/23/18 23:44 05/03/18 21:15 Vancomycin HCl (Vanco rx to dose) 1 ea DAILY PRN MISC Per rx protocol 05/03/18 09:00 06/04/18 23:00 Vitamin B Complex/ Vit C/Folic Acid (Nephrovite) 1 tab DAILY ORAL 05/03/18 09:00 05/26/18 08:59 05/04/18 08:29 Warfarin Sodium (Coumadin per pharmacy) 1 ea DAILY PRN MISC Per rx protocol 05/03/18 09:00 05/29/18 08:14 Warfarin Sodium (Coumadin) 5 mg COUMADIN ORAL 05/03/18 17:00 05/08/18 16:59 05/03/18 16:44 Jaime Casey M.D. May 04, 2018 15:42
[2018-05-04 16:00] VITALS: BP 127/81
--- NOTE | 2018-05-04 16:05 | Podiatric Progress Note ---
Assessment/Plan Patient Teodoro Gabriel is a 67 year old male who was admitted on Apr 23, 2018 at 19:18 with Problems: (1) Diabetic foot infection (2) ESRD (end stage renal disease) (3) Diabetic infection of left foot (4) Achilles tendon infection (5) PVD (peripheral vascular disease) (6) HTN (hypertension) (7) Acute DVT (deep venous thrombosis) (8) Acute osteomyelitis of metatarsal bone of left foot Assessment/Plan L Achillis tendon and L lateral stump ulcer was debrided to the level of tendon. excisional using a sharp method. L medial stump ulcer was excisional debrided to the level of subq using sharp debridement order was given for cleanse for NS and apply xerform Rx for Santyl to wounds qd. Continue local wound care patient is clear from podiatry will follow as needed. Subjective Allergies: Coded Allergies: NO KNOWN DRUG ALLERGIES (Verified Allergy, Unknown, 03/06/18) Subjective Patient is seen by beside in NAD. f/u L foot ulcers. Objective Exam Last 24 Hour Vital Signs Date Time Temp Pulse Resp B/P (MAP) Pulse Ox O2 Delivery O2 Flow Rate FiO2 05/04/18 15:28 94 20 96 Venturi Mask 10.0 45 05/04/18 13:55 98 145/93 05/04/18 12:00 97.4 102 20 145/93 (110) 96 05/04/18 12:00 98 05/04/18 12:00 Venturi Mask 15.0 Venturi Mask 15.0 05/04/18 11:51 98 20 99 Venturi Mask 10.0 45 05/04/18 11:37 92 20 94 Venturi Mask 10.0 45 05/04/18 09:49 105 05/04/18 08:29 135/70 05/04/18 08:00 Venturi Mask 15.0 Venturi Mask 15.0 05/04/18 08:00 97.6 98 20 135/76 (95) 97 05/04/18 07:07 97 20 98 Venturi Mask 10.0 45 05/04/18 07:03 Venturi Mask 10.0 45 05/04/18 07:03 94 Venturi Mask 10.0 45 05/04/18 06:59 95 20 94 Venturi Mask 10.0 45 05/04/18 06:15 95 142/74 05/04/18 05:16 95 16 98 Facial 45 05/04/18 04:00 Venturi Mask 15.0 Venturi Mask 15.0 05/04/18 04:00 97.6 102 22 142/74 (96) 100 05/04/18 03:58 94 05/04/18 03:43 95 23 Bi-pap 60 05/04/18 03:06 99 18 98 Facial 45 05/04/18 03:01 98 20 99 Nasal Cannula 4.0 36 05/04/18 02:53 97 20 98 Facial 45 05/04/18 02:52 97 20 98 Bi-pap 45 05/04/18 01:21 100 19 98 Facial 45 05/04/18 00:00 97.7 98 19 139/74 (95) 100 05/04/18 00:00 96 05/04/18 00:00 Venturi Mask 15.0 Venturi Mask 15.0 05/03/18 21:21 100 17 98 Facial 45 05/03/18 21:15 104 145/87 05/03/18 20:00 98.1 104 22 145/87 (106) 98 05/03/18 20:00 Venturi Mask 15.0 Venturi Mask 15.0 05/03/18 19:26 96 05/03/18 18:46 104 17 99 Facial 45 05/03/18 18:43 104 14 99 Bi-pap 45 05/03/18 18:30 Nasal Cannula 5.0 45 05/03/18 18:30 93 Nasal Cannula 5.0 45 05/03/18 18:30 102 18 93 Nasal Cannula 45 05/03/18 18:03 143/79 05/03/18 16:00 Venturi Mask 15.0 Venturi Mask 15.0 05/03/18 16:00 98.1 101 24 143/79 (100) 96 05/03/18 16:00 99 Laboratory Tests Test 05/04/18 04:00 05/04/18 11:00 Prothrombin Time 19.1 SEC (9.30-11.50) H Prothromb Time International Ratio 1.9 (0.9-1.1) H Random Vancomycin Level 20.2 ug/mL Microbiology Date/Time Source Procedure Growth Status 04/23/18 16:40 Blood Blood Culture - Final Staphylococcus Sp Coag Neg Complete 04/24/18 13:16 Wound Gram Stain - Final Complete 04/24/18 13:16 Wound Culture - Final Staphylococcus Aureus - Mrsa Usual Skin Marlene Enterobacter Cloacae Complex Complete 04/23/18 18:17 Nasal Nares MRSA Culture - Final NO METHICILLIN RESISTANT STAPH AUREUS... Complete 04/23/18 18:17 Rectum VRE Culture - Final Enterococcus Faecium - Vre Complete 04/23/18 18:17 Rectum - Final NO CARBAPENEM-RESISTANT ENTEROBACTERI... Complete Dermatological Dermatological Narrative Multiple ulceration noted to the L foot. L posterior ankle ulceration is noted probing to the Achillis tendon. +fibrotic tissue, no drainage, pus or odor noted, no cellulitis was seen. L Distal lateral stump ulceration noted with fibrotic base and thick biofilm noted. no drainage under mining or probing seen. wound is extended to subq/ muscle layer. beefy granulation tissue was seen after debridement. L medial stump smaller wound extended to subq , biofilm with fibrotic base. beefy granulation tissue noted after debridement. Sanjay Matias DPM May 04, 2018 16:05
--- NOTE | 2018-05-04 17:18 | Pulmonology Progress Note ---
Assessment/Plan Assessment/Plan Pulmonary Progress Note Assessment/Plan Assessment/Plan Problem List: 1. Diabetic foot infection 2. Acute diastolic CHF exacerbation/pulmonary edema 3. COPD w/o obvious exacerbation 4. CHU 5. ESRD on HD 6. Hx multiple amputations 7. Thrombocytopenia 8. Anemia 9. L leg DVT 10. HTN - uncontrolled 11. SVT Plan: Abx per ID Podiatric wound care/debridement as needed Monitor volumes, cont volume removed with HD Aggressive BP control Duonebs q6 Cont CPAP 10 cm H2O Cont coumadin No plans for IVC filter Repeat CXR tomorrow Subjective ROS Limited/Unobtainable: No Interval Events: Transferred out of ICU, off cardizem gtt. HD again today Constitutional: Reports: no symptoms HEENT: Repors: no symptoms Respiratory: Reports: shortness of breath Cardiovascular: Reports: no symptoms Gastrointestinal/Abdominal: Reports: no symptoms Genitourinary: Reports: no symptoms Musculoskeletal: Reports: swelling Allergies: Coded Allergies: NO KNOWN DRUG ALLERGIES (Verified Allergy, Unknown, 03/06/18) Objective Vital Signs Noted General Appearance: no acute distress, other - alert on CPAP HEENT: normocephalic, mucous membranes moist Respiratory/Chest: crackles/rales Cardiovascular: normal rate, regular rhythm Abdomen: soft, non tender Extremities: other - improving edema b/l LE Laboratory Tests 05/02/18 15:42: Random Vancomycin Level 18.9 05/03/18 04:47: White Blood Count 6.4, Red Blood Count 2.85L, Hemoglobin 8.1L, Hematocrit 26.8L , Mean Corpuscular Volume 94, Mean Corpuscular Hemoglobin 28.4, Mean Corpuscular Hemoglobin Concent 30.3L, Red Cell Distribution Width 18.3H, Platelet Count 143L, Mean Platelet Volume 6.7, Neutrophils (%) (Auto) 84.7H, Lymphocytes (%) (Auto) 3.3L, Monocytes (%) (Auto) 8.9, Eosinophils (%) (Auto) 2.4, Basophils (%) (Auto) 0.8, Prothrombin Time 20.9H, Prothromb Time International Ratio 2.1H, Sodium Level 133L, Potassium Level 5.4H, Chloride Level 95L, Carbon Dioxide Level 27, Anion Gap 11, Blood Urea Nitrogen 64H, Creatinine 8.3H, Estimat Glomerular Filtration Rate 7.9, Glucose Level 105, Calcium Level 9.7 Current Medications Medications (Trade) Dose Ordered Sig/Oliverio Route PRN Reason Start Time Stop Time Status Last Admin Dose Admin Acetaminophen (Tylenol) 650 mg Q6H PRN ORAL Mild Pain/Temp > 100.5 05/02/18 17:41 05/23/18 17:40 Acetaminophen/ Hydrocodone Bitart ([place]ard 10/325) 1 tab Q6H PRN ORAL For Pain 05/02/18 17:43 05/07/18 17:42 05/03/18 05:33 Allopurinol (Zyloprim) 100 mg DAILY ORAL 05/03/18 09:00 05/24/18 08:59 05/03/18 08:50 Calcium Carbonate (Tums) 500 mg TIDPRN PRN ORAL Nausea & Vomiting/Dyspepsia 05/02/18 17:41 06/01/18 17:40 Clonidine HCl (Catapres Tab) 0.1 mg Q2H PRN ORAL SBP > 170 05/02/18 19:15 06/01/18 13:14 Clonidine HCl (Catapres tab) 0.2 mg BID ORAL 05/02/18 18:00 05/23/18 22:29 05/03/18 08:51 Dextrose (Dextrose 50%) 25 ml Q30M PRN IV Hypoglycemia 05/02/18 18:00 05/23/18 22:59 Dextrose (Dextrose 50%) 50 ml Q30M PRN IV Hypoglycemia 05/02/18 18:00 05/23/18 22:59 Diltiazem HCl (Cardizem) 90 mg EVERY 8 HOURS ORAL 05/02/18 22:00 06/01/18 13:59 05/03/18 05:32 Docusate Sodium (Colace) 100 mg TWICE A DAY ORAL 05/02/18 18:00 05/24/18 08:59 05/03/18 08:50 Epoetin Yung (Procrit (for ESRD on dialysis)) 7,000 units SUN-SUN-SUN SUBQ 05/03/18 21:00 05/29/18 20:59 Finasteride (Proscar) 5 mg DAILY ORAL 05/03/18 09:00 05/24/18 08:59 05/03/18 08:50 Gabapentin (Neurontin) 300 mg DAILY ORAL 05/03/18 09:00 05/24/18 08:59 05/03/18 08:51 Heparin Sodium (Porcine) (Heparin Sod 1000 units/ml 10ml) 500 unit ONCE PRN IV DIALYSIS 05/02/18 17:42 05/03/18 23:59 Insulin Aspart (NovoLOG) BEFORE MEALS AND HS SUBQ 05/02/18 21:00 05/24/18 06:29 Ipratropium [place] (Atrovent) 500 mcg Q4HRT HHN 05/02/18 19:00 05/06/18 14:59 05/03/18 07:06 Meropenem 500 mg/ Sodium Chloride 55 ml @ 110 mls/hr Q24H IVPB 05/02/18 21:00 06/04/18 23:00 05/02/18 21:25 Moxifloxacin HCl (Vigamox) 1 drop Q8HR BOTH EYES 05/02/18 22:00 05/04/18 13:59 05/03/18 05:31 Pantoprazole (Protonix) 40 mg DAILY IVP 05/03/18 09:00 05/24/18 08:59 05/03/18 08:50 Sodium Chloride 1,000 ml @ 500 mls/hr Q2H PRN IVLG sbp<90 during hd 05/02/18 17:45 05/03/18 23:59 Tamsulosin HCl (Flomax) 0.4 mg BEDTIME ORAL 05/02/18 21:00 05/23/18 23:44 05/02/18 21:29 Vancomycin HCl (Vanco rx to dose) 1 ea DAILY PRN MISC Per rx protocol 05/03/18 09:00 06/04/18 23:00 Vitamin B Complex/ Vit C/Folic Acid (Nephrovite) 1 tab DAILY ORAL 05/03/18 09:00 05/26/18 08:59 05/03/18 08:50 Warfarin Sodium (Coumadin per pharmacy) 1 ea DAILY PRN MISC Per rx protocol 05/03/18 09:00 05/29/18 08:14 Subjective ROS Limited/Unobtainable: No Allergies: Coded Allergies: NO KNOWN DRUG ALLERGIES (Verified Allergy, Unknown, 03/06/18) Objective Last 24 Hour Vital Signs Date Time Temp Pulse Resp B/P (MAP) Pulse Ox O2 Delivery O2 Flow Rate FiO2 05/04/18 16:15 101 05/04/18 15:38 96 20 99 Venturi Mask 10.0 45 05/04/18 15:28 94 20 96 Venturi Mask 10.0 45 05/04/18 13:55 98 145/93 05/04/18 12:00 97.4 102 20 145/93 (110) 96 05/04/18 12:00 98 05/04/18 12:00 Venturi Mask 15.0 Venturi Mask 15.0 05/04/18 11:51 98 20 99 Venturi Mask 10.0 45 05/04/18 11:37 92 20 94 Venturi Mask 10.0 45 05/04/18 09:49 105 05/04/18 08:29 135/70 05/04/18 08:00 Venturi Mask 15.0 Venturi Mask 15.0 05/04/18 08:00 97.6 98 20 135/76 (95) 97 05/04/18 07:07 97 20 98 Venturi Mask 10.0 45 05/04/18 07:03 Venturi Mask 10.0 45 05/04/18 07:03 94 Venturi Mask 10.0 45 05/04/18 06:59 95 20 94 Venturi Mask 10.0 45 05/04/18 06:15 95 142/74 05/04/18 05:16 95 16 98 Facial 45 05/04/18 04:00 Venturi Mask 15.0 Venturi Mask 15.0 05/04/18 04:00 97.6 102 22 142/74 (96) 100 05/04/18 03:58 94 05/04/18 03:43 95 23 Bi-pap 60 05/04/18 03:06 99 18 98 Facial 45 05/04/18 03:01 98 20 99 Nasal Cannula 4.0 36 05/04/18 02:53 97 20 98 Facial 45 05/04/18 02:52 97 20 98 Bi-pap 45 05/04/18 01:21 100 19 98 Facial 45 05/04/18 00:00 97.7 98 19 139/74 (95) 100 05/04/18 00:00 96 05/04/18 00:00 Venturi Mask 15.0 Venturi Mask 15.0 05/03/18 21:21 100 17 98 Facial 45 05/03/18 21:15 104 145/87 05/03/18 20:00 98.1 104 22 145/87 (106) 98 05/03/18 20:00 Venturi Mask 15.0 Venturi Mask 15.0 05/03/18 19:26 96 05/03/18 18:46 104 17 99 Facial 45 05/03/18 18:43 104 14 99 Bi-pap 45 05/03/18 18:30 Nasal Cannula 5.0 45 05/03/18 18:30 93 Nasal Cannula 5.0 45 05/03/18 18:30 102 18 93 Nasal Cannula 45 05/03/18 18:03 143/79 Intake and Output 05/03/18 05/04/18 18:59 06:59 Intake Total 400 ml 355 ml Output Total 4000 ml Balance -3600 ml 355 ml Intake Oral 400 ml 300 ml IV Total 55 ml Hemodialysis UF 4000 ml Laboratory Tests 05/04/18 04:00: Prothrombin Time 19.1H, Prothromb Time International Ratio 1.9H 05/04/18 11:00: Random Vancomycin Level 20.2 Current Medications Medications (Trade) Dose Ordered Sig/Oliverio Route PRN Reason Start Time Stop Time Status Last Admin Dose Admin Acetaminophen (Tylenol) 650 mg Q6H PRN ORAL Mild Pain/Temp > 100.5 05/02/18 17:41 05/23/18 17:40 Acetaminophen/ Hydrocodone Bitart (S[place]ard 10/325) 1 tab Q6H PRN ORAL For Pain 05/02/18 17:43 05/07/18 17:42 05/04/18 16:05 Allopurinol (Zyloprim) 100 mg DAILY ORAL 05/03/18 09:00 05/24/18 08:59 05/04/18 08:30 Calcium Carbonate (Tums) 500 mg TIDPRN PRN ORAL Nausea & Vomiting/Dyspepsia 05/02/18 17:41 06/01/18 17:40 Clonidine HCl (Catapres Tab) 0.1 mg Q2H PRN ORAL SBP > 170 05/02/18 19:15 06/01/18 13:14 Clonidine HCl (Catapres tab) 0.2 mg BID ORAL 05/02/18 18:00 05/23/18 22:29 05/04/18 08:29 Collagenase (Santyl) 1 applic DAILY TOPIC 05/05/18 09:00 06/04/18 08:59 Dextrose (Dextrose 50%) 25 ml Q30M PRN IV Hypoglycemia 05/02/18 18:00 05/23/18 22:59 Dextrose (Dextrose 50%) 50 ml Q30M PRN IV Hypoglycemia 05/02/18 18:00 05/23/18 22:59 Diltiazem HCl (Cardizem) 90 mg EVERY 8 HOURS ORAL 05/02/18 22:00 06/01/18 13:59 05/04/18 13:55 Docusate Sodium (Colace) 100 mg TWICE A DAY ORAL 05/02/18 18:00 05/24/18 08:59 05/04/18 08:30 Epoetin Yung (Procrit (for ESRD on dialysis)) 7,000 units SUN-SUN-SUN SUBQ 05/03/18 21:00 05/29/18 20:59 05/03/18 21:15 Finasteride (Proscar) 5 mg DAILY ORAL 05/03/18 09:00 05/24/18 08:59 05/04/18 08:29 Gabapentin (Neurontin) 300 mg DAILY ORAL 05/03/18 09:00 05/24/18 08:59 05/04/18 08:30 Heparin Sodium (Porcine) (Heparin Sod 1000 units/ml 10ml) 500 unit ONCE PRN IV FOR HD USE ONLY 05/04/18 15:00 05/05/18 23:59 Insulin Aspart (NovoLOG) BEFORE MEALS AND HS SUBQ 05/02/18 21:00 05/24/18 06:29 05/04/18 12:01 Ipratropium [place] (Atrovent) 500 mcg Q4HRT HHN 05/02/18 19:00 05/06/18 14:59 05/04/18 15:28 Meropenem 500 mg/ Sodium Chloride 55 ml @ 110 mls/hr Q24H IVPB 05/02/18 21:00 06/04/18 23:00 05/03/18 21:14 Pantoprazole (Protonix) 40 mg ACBREAKFAST ORAL 05/04/18 06:30 06/03/18 06:29 05/04/18 06:15 Sodium Chloride 1,000 ml @ 500 mls/hr Q2H PRN IVLG sbp<90 during hd 05/05/18 14:29 05/05/18 23:59 Tamsulosin HCl (Flomax) 0.4 mg BEDTIME ORAL 05/02/18 21:00 05/23/18 23:44 05/03/18 21:15 Vancomycin HCl (Vanco rx to dose) 1 ea DAILY PRN MISC Per rx protocol 05/03/18 09:00 06/04/18 23:00 Vitamin B Complex/ Vit C/Folic Acid (Nephrovite) 1 tab DAILY ORAL 05/03/18 09:00 05/26/18 08:59 05/04/18 08:29 Warfarin Sodium (Coumadin per pharmacy) 1 ea DAILY PRN MISC Per rx protocol 05/03/18 09:00 05/29/18 08:14 Warfarin Sodium (Coumadin) 5 mg COUMADIN ORAL 05/03/18 17:00 05/08/18 16:59 05/03/18 16:44 Sanjay Keller MD May 04, 2018 17:18
[2018-05-04] MEDS: Warfarin Sodium 5mg ORAL SCH (17:29)
--- NOTE | 2018-05-04 19:01 | General Progress Note ---
Assessment/Plan Assessment/Plan Assessment - Heme (+) stools - Anemia and thrombocytopenia - DVT - on anticoagulation - Hep B S Ag (+) - DM - PVD - CHU - PVD / amputation - Poor Px Recommendations - Patient appropriately has declined GI w/u - Will follow conservatively - Monitor CBC while on anticoagulation - Replace Fe IV - PPI - if H&H declines on anticoagulation, may need to reconsider IVC filter - Check HBV quantitative PCR Subjective Allergies: Coded Allergies: NO KNOWN DRUG ALLERGIES (Verified Allergy, Unknown, 03/06/18) Subjective Eating OK on FM O2 no abdominal complaints Objective Last 24 Hour Vital Signs Date Time Temp Pulse Resp B/P (MAP) Pulse Ox O2 Delivery O2 Flow Rate FiO2 05/04/18 17:29 127/81 05/04/18 16:15 101 05/04/18 16:00 97.7 101 20 127/81 (96) 95 05/04/18 16:00 Venturi Mask 15.0 Venturi Mask 15.0 05/04/18 15:38 96 20 99 Venturi Mask 10.0 45 05/04/18 15:28 94 20 96 Venturi Mask 10.0 45 05/04/18 13:55 98 145/93 05/04/18 12:00 97.4 102 20 145/93 (110) 96 05/04/18 12:00 98 05/04/18 12:00 Venturi Mask 15.0 Venturi Mask 15.0 05/04/18 11:51 98 20 99 Venturi Mask 10.0 45 05/04/18 11:37 92 20 94 Venturi Mask 10.0 45 05/04/18 09:49 105 05/04/18 08:29 135/70 05/04/18 08:00 Venturi Mask 15.0 Venturi Mask 15.0 05/04/18 08:00 97.6 98 20 135/76 (95) 97 05/04/18 07:07 97 20 98 Venturi Mask 10.0 45 05/04/18 07:03 Venturi Mask 10.0 45 05/04/18 07:03 94 Venturi Mask 10.0 45 05/04/18 06:59 95 20 94 Venturi Mask 10.0 45 05/04/18 06:15 95 142/74 05/04/18 05:16 95 16 98 Facial 45 05/04/18 04:00 Venturi Mask 15.0 Venturi Mask 15.0 05/04/18 04:00 97.6 102 22 142/74 (96) 100 05/04/18 03:58 94 05/04/18 03:43 95 23 Bi-pap 60 05/04/18 03:06 99 18 98 Facial 45 05/04/18 03:01 98 20 99 Nasal Cannula 4.0 36 05/04/18 02:53 97 20 98 Facial 45 05/04/18 02:52 97 20 98 Bi-pap 45 05/04/18 01:21 100 19 98 Facial 45 05/04/18 00:00 97.7 98 19 139/74 (95) 100 05/04/18 00:00 96 05/04/18 00:00 Venturi Mask 15.0 Venturi Mask 15.0 05/03/18 21:21 100 17 98 Facial 45 05/03/18 21:15 104 145/87 05/03/18 20:00 98.1 104 22 145/87 (106) 98 05/03/18 20:00 Venturi Mask 15.0 Venturi Mask 15.0 05/03/18 19:26 96 Intake and Output 05/03/18 05/04/18 18:59 06:59 Intake Total 400 ml 355 ml Output Total 4000 ml Balance -3600 ml 355 ml Intake Oral 400 ml 300 ml IV Total 55 ml Hemodialysis UF 4000 ml Laboratory Tests 05/04/18 04:00: Prothrombin Time 19.1H, Prothromb Time International Ratio 1.9H 05/04/18 11:00: Random Vancomycin Level 20.2 Height (Feet): 5 Height (Inches): 7.00 Weight (Pounds): 283 Objective Obese AA man NCAT coarse BS, ronchi RR obese abd nonfocal (+) UE amputations Bee Krueger MD May 04, 2018 19:01
--- NOTE | 2018-05-04 19:29 | NUR ---
HAND-OFF: Report given to CLEVE Sarah.
--- NOTE | 2018-05-04 19:32 | General Progress Note ---
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 hepatitis per heme will hold off on ivc filter coumadin per pharmacy doing well fe deficiency anemia, started on iron and epo GI eval appreciated, patient refuses GI workup dialysis dependent pulmonary fup cards fup echo noted on cardizem drip converted to sinus rhythm monior platelets hgb dvt and ulcer prohylaxis dc plans to snf when ok with pulmonary/cardiology hopefully sunday Subjective Allergies: Coded Allergies: NO KNOWN DRUG ALLERGIES (Verified Allergy, Unknown, 03/06/18) Subjective above noted t converted to sinus rhythm, overall better Objective Last 24 Hour Vital Signs Date Time Temp Pulse Resp B/P (MAP) Pulse Ox O2 Delivery O2 Flow Rate FiO2 05/04/18 19:16 91 20 95 Venturi Mask 10.0 45 05/04/18 19:16 Venturi Mask 10.0 45 05/04/18 19:16 95 Venturi Mask 10.0 45 05/04/18 17:29 127/81 05/04/18 16:15 101 05/04/18 16:00 97.7 101 20 127/81 (96) 95 05/04/18 16:00 Venturi Mask 15.0 Venturi Mask 15.0 05/04/18 15:38 96 20 99 Venturi Mask 10.0 45 05/04/18 15:28 94 20 96 Venturi Mask 10.0 45 05/04/18 13:55 98 145/93 05/04/18 12:00 97.4 102 20 145/93 (110) 96 05/04/18 12:00 98 05/04/18 12:00 Venturi Mask 15.0 Venturi Mask 15.0 05/04/18 11:51 98 20 99 Venturi Mask 10.0 45 05/04/18 11:37 92 20 94 Venturi Mask 10.0 45 05/04/18 09:49 105 05/04/18 08:29 135/70 05/04/18 08:00 Venturi Mask 15.0 Venturi Mask 15.0 05/04/18 08:00 97.6 98 20 135/76 (95) 97 05/04/18 07:07 97 20 98 Venturi Mask 10.0 45 05/04/18 07:03 Venturi Mask 10.0 45 05/04/18 07:03 94 Venturi Mask 10.0 45 05/04/18 06:59 95 20 94 Venturi Mask 10.0 45 05/04/18 06:15 95 142/74 05/04/18 05:16 95 16 98 Facial 45 05/04/18 04:00 Venturi Mask 15.0 Venturi Mask 15.0 05/04/18 04:00 97.6 102 22 142/74 (96) 100 05/04/18 03:58 94 05/04/18 03:43 95 23 Bi-pap 60 05/04/18 03:06 99 18 98 Facial 45 05/04/18 03:01 98 20 99 Nasal Cannula 4.0 36 05/04/18 02:53 97 20 98 Facial 45 05/04/18 02:52 97 20 98 Bi-pap 45 05/04/18 01:21 100 19 98 Facial 45 05/04/18 00:00 97.7 98 19 139/74 (95) 100 05/04/18 00:00 96 05/04/18 00:00 Venturi Mask 15.0 Venturi Mask 15.0 05/03/18 21:21 100 17 98 Facial 45 05/03/18 21:15 104 145/87 05/03/18 20:00 98.1 104 22 145/87 (106) 98 05/03/18 20:00 Venturi Mask 15.0 Venturi Mask 15.0 Intake and Output 05/03/18 05/04/18 18:59 06:59 Intake Total 400 ml 355 ml Output Total 4000 ml Balance -3600 ml 355 ml Intake Oral 400 ml 300 ml IV Total 55 ml Hemodialysis UF 4000 ml Laboratory Tests 05/04/18 04:00: Prothrombin Time 19.1H, Prothromb Time International Ratio 1.9H 05/04/18 11:00: Random Vancomycin Level 20.2 Height (Feet): 5 Height (Inches): 7.00 Weight (Pounds): 283 General Appearance: WD/WN, no apparent distress Neck: supple Cardiovascular: normal rate Respiratory/Chest: decreased breath sounds Abdomen: soft Objective left lower extremity dressing intact clean no bleeding Moe Sewell MD May 04, 2018 19:32
[2018-05-04] MEDS ORDERED: Tubing IV Secondary IV ONE ×2 (19:41→19:47)
[2018-05-04] MEDS ORDERED: NS 275ml ONE (19:41)
[2018-05-04] MEDS ORDERED: D5 1/2NS 1000ml IV ONE (19:47)
[2018-05-04 20:00] VITALS: BP 123/81
--- NOTE | 2018-05-04 20:00 | NUR ---
NURSE NOTES: Pt awake/alert, sitting high fowlers in bed, breathing easily on room air, having just finished a breathing tx, denies SOB and denies pain at this time. Vital signs stable with SR @ 100. IV access right forearm and left wrist, both flushed with 5 ml NS and locked. Family friend at bedside. Bed left in low position, side rails up x 2 and call light left near pt's hand.
[2018-05-04] MEDS: Tamsulosin 0.4mg cap ORAL SCH (21:01)
[2018-05-04] MEDS: Meropenem 500 MG in NS 55 ML IVPB SCH (21:01)
[2018-05-05] VITALS (7 sets, daily range): BP systolic 79–162; BP diastolic 56–89
[2018-05-05] MEDS: Ipratropium 0.02% Inh Soln 2.5ml UD HHN SCH ×6 (03:12→23:10)
[2018-05-05 05:50] LABS: BASOPHILS % (AUTO) 1.6 % (0.0-2.0); EOSINOPHILS % (AUTO) 4.1 % (0.0-3.0); HEMATOCRIT 26.2 % (42.0-52.0); HEMOGLOBIN 8.1 G/DL (14.2-18.0); MEAN CORPUSCULAR VOLUME 94 FL (80-99); MONOCYTES % (AUTO) 8.7 % (1.0-10.0); NEUTROPHILS % (AUTO) 78.7 % (45.0-75.0); PLATELET COUNT 152 K/UL (150-450); RED BLOOD COUNT 2.78 M/UL (4.70-6.10); RED CELL DISTRIBUTION WIDTH 18.3 % (11.6-14.8)
[2018-05-05 05:53] LABS: INR 1.9 (0.9-1.1)
[2018-05-05 06:04] LABS: ANION GAP 12 mmol/L (5-15); BLOOD UREA NITROGEN 76 mg/dL (7-18); CALCIUM 9.4 MG/DL (8.5-10.1); CARBON DIOXIDE 28 MMOL/L (21-32); CHLORIDE 94 MMOL/L (98-107); CREATININE 9.8 MG/DL (0.55-1.30); POTASSIUM 5.4 MMOL/L (3.5-5.1); SODIUM 134 MMOL/L (136-145)
[2018-05-05] MEDS: dilTIAZem HCl 90mg tab ORAL SCH ×3 (06:25→20:56)
[2018-05-05] MEDS: NovoLOG Insulin Flexpen SUBQ SCH ×4 (06:27→20:58)
--- NOTE | 2018-05-05 07:20 | NUR ---
HAND-OFF: Report given to CLEVE Virk.
--- NOTE | 2018-05-05 07:21 | NUR ---
NURSE NOTES: Received patient in bed. On venturi mask as tolerated. No respiratory distress. Patient able to feed self during breakfast meal. Will continue plan of care.
--- NOTE | 2018-05-05 08:15 | NUR ---
NURSE NOTES: Received report from Prabhjot Rosario RN. Patient alert and oriented x 4, able to make needs known. Receiving O2 via Venturi mask with FiO2 50%, saturating at 98%, no s/s of respiratory distress noted. Bruit and thrill present on left thigh AV shunt. Left wrist 22g, right upper arm 20g, and left forearm 20g saline locks patent and asymptomatic. Bed locked in lowest position with side rails up x 2. All needs attended to. Call light within reach. Will continue to monitor.
--- NOTE | 2018-05-05 08:20 | NUR ---
HAND-OFF: Report given to Kim Stafford RN.
[2018-05-05] MEDS: cloNIDine 0.2mg Tab ORAL SCH ×2 (09:00→18:06)
[2018-05-05] MEDS: Docusate 100mg cap ORAL SCH ×2 (09:05→18:05)
[2018-05-05] MEDS: Allopurinol 100mg Tab ORAL SCH (09:05)
[2018-05-05] MEDS: Nephrovite tab (Rena-Vite) ORAL SCH (09:05)
--- NOTE | 2018-05-05 10:14 | NUR ---
CASE MANAGEMENT: REVIEW SI: RESPIRATORY FAILURE . CHF . DIABETIC FOOT INFECTION . RENAL FAILURE ON DIALYSIS T 97.7 HR 94 RR 19 B/P 131/85 SATS 95% ON 15L/VENTURI MASK FiO2 50 NA 134 K 5.4 CL 94 BUN 76 CR 9.8 IS: CARDIZEM IV Q24HR VENOFER IV QHS MEROPENEM IV Q24HR PROCRIT SUBQ MWF HEMODIALYSIS PRN STEP DOWN STATUS DCP: PATIENT IS FROM HOME
--- NOTE | 2018-05-05 12:03 | Nephrology Progress Note ---
Assessment/Plan Problem List: (1) ESRD (end stage renal disease) (2) Diabetic infection of left foot (3) Acute DVT (deep venous thrombosis) Assessment: LLE (4) PVD (peripheral vascular disease) (5) Anemia Assessment: NO SIG CHANGE (6) Iron deficiency (7) Thrombocytopenia Assessment: better (8) HTN (hypertension) Assessment: better Plan HD as tolerated continue Epogen abxs anticoagulation follow labs Discussed with RN and HD RN Discussed with Dr Sewell Subjective Subjective seen on diALYSIS on bipap Objective Objective Last 24 Hour Vital Signs Date Time Temp Pulse Resp B/P (MAP) Pulse Ox O2 Delivery O2 Flow Rate FiO2 05/05/18 11:14 Bi-pap 05/05/18 11:03 90 20 99 Bi-pap 45 05/05/18 11:00 94 13 99 Facial 45 05/05/18 11:00 90 20 99 Bi-pap 45 05/05/18 09:00 131/85 05/05/18 08:00 Venturi Mask 15.0 Nasal Cannula 3.0 05/05/18 08:00 97.7 94 19 131/85 (100) 95 05/05/18 07:47 100 05/05/18 07:27 89 20 99 Venturi Mask 12.0 50 05/05/18 07:23 99 Venturi Mask 12.0 50 05/05/18 07:23 89 20 99 Venturi Mask 12.0 50 05/05/18 07:23 Venturi Mask 12.0 50 05/05/18 06:25 93 134/84 05/05/18 05:43 93 16 100 Facial 45 05/05/18 05:09 95 20 97 05/05/18 04:00 97.6 98 24 146/84 (104) 100 05/05/18 04:00 Venturi Mask 15.0 Nasal Cannula 3.0 05/05/18 04:00 93 05/05/18 03:25 95 20 96 Venturi Mask 45 05/05/18 03:12 94 20 96 Venturi Mask 45 05/05/18 03:12 94 20 96 05/05/18 00:00 96 05/05/18 00:00 97.9 97 16 134/84 (101) 100 05/05/18 00:00 Venturi Mask 15.0 Nasal Cannula 3.0 05/04/18 23:17 96 20 99 Bi-pap 45 05/04/18 23:09 94 20 97 Bi-pap 45 05/04/18 23:07 92 15 99 Facial 45 05/04/18 21:01 97 127/81 05/04/18 20:00 101 05/04/18 20:00 98.0 96 24 123/81 (95) 94 05/04/18 20:00 Nasal Cannula 3.0 Nasal Cannula 3.0 05/04/18 19:26 97 20 99 Venturi Mask 10.0 45 05/04/18 19:16 91 20 95 Venturi Mask 10.0 45 05/04/18 19:16 Venturi Mask 10.0 45 05/04/18 19:16 95 Venturi Mask 10.0 45 05/04/18 17:29 127/81 05/04/18 16:15 101 05/04/18 16:00 97.7 101 20 127/81 (96) 95 05/04/18 16:00 Venturi Mask 15.0 Venturi Mask 15.0 05/04/18 15:38 96 20 99 Venturi Mask 10.0 45 05/04/18 15:28 94 20 96 Venturi Mask 10.0 45 05/04/18 13:55 98 145/93 Intake and Output 05/04/18 05/05/18 19:00 07:00 Intake Total 780 ml 240 ml Balance 780 ml 240 ml Intake Oral 780 ml 240 ml Laboratory Tests 05/05/18 04:00: White Blood Count 5.0, Red Blood Count 2.78L, Hemoglobin 8.1L, Hematocrit 26.2L , Mean Corpuscular Volume 94, Mean Corpuscular Hemoglobin 29.0, Mean Corpuscular Hemoglobin Concent 30.9L, Red Cell Distribution Width 18.3H, Platelet Count 152, Mean Platelet Volume 6.3L, Neutrophils (%) (Auto) 78.7H, Lymphocytes (%) (Auto) 7.0L, Monocytes (%) (Auto) 8.7, Eosinophils (%) (Auto) 4.1H, Basophils (%) (Auto) 1.6, Prothrombin Time 19.8H, Prothromb Time International Ratio 1.9H, Sodium Level 134L, Potassium Level 5.4H, Chloride Level 94L, Carbon Dioxide Level 28, Anion Gap 12, Blood Urea Nitrogen 76H, Creatinine 9.8H, Estimat Glomerular Filtration Rate 6.5, Glucose Level 87, Calcium Level 9.4 Height (Feet): 5 Height (Inches): 7.00 Weight (Pounds): 290 Cardiovascular: normal rate Respiratory/Chest: lungs clear Extremities: moderate edema - LESS EDEMA Johan Harper MD May 05, 2018 12:03
[2018-05-05] MEDS: HYDROcodone/Acetamin 10/325 tab ORAL PRN (14:02)
--- NOTE | 2018-05-05 14:11 | Cardiac Electrophysiology PN ---
Assessment/Plan Status Narrative Normal left ventricular chamber size, systolic function and wall motion. Left ventricular ejection fraction estimated to be 60-65 %. Moderate left ventricular hypertrophy by 2-D. Small posterior pericardial effusion. Moderate left atrial enlargement. Mild right atrial enlargement. Right ventricular chamber size is within normal limits. Moderate aortic valve calcification with decreased cusp excursion c/w aortic stenosis. Moderately thickened mitral valve leaflets with normal excursion. Mitral annulus and aortic root calcification. Pulmonic valve not well visualized. Normal tricuspid valve structure. IVC dilated at 2.4 cm with slight physiologic collapse suggestive of in Assessment/Plan 1. Congestive heart failure. BNP > 35,000 . Better after hemodialysis daily for 3 days now 2. Troponin elevation due to renal failure. No chest pain. Echocardiogram EF 65%. 3. Hypertension. On hemodialysis, clonidine 0.2 mg bid and Cardizem 90 po q 8 hr 4. Sustained SVT at rate 170. Stable on Cardizem 90 po q 8 hr 5. Morbid obesity. 6. Peripheral vascular disease left metatarsal and finger amputations 7. Respiratory failure/ COPD. On BIPAP 8. Acute left leg DVT on heparin drip and Coumadin per Rx. INR 2.0 9. Lower extremity cellulitis, on iv Abx per ID DW RN Subjective Subjective In SR.Off and on BIPAP. Had HD today again,the 3rd day in a row. Wants to go home. Objective Last 24 Hour Vital Signs Date Time Temp Pulse Resp B/P (MAP) Pulse Ox O2 Delivery O2 Flow Rate FiO2 05/05/18 13:58 105 144/86 05/05/18 12:00 Bi-pap Bi-pap 05/05/18 12:00 97.7 92 11 162/77 (105) 97 05/05/18 11:46 96 05/05/18 11:14 Bi-pap 05/05/18 11:03 90 20 99 Bi-pap 45 05/05/18 11:00 94 13 99 Facial 45 05/05/18 11:00 90 20 99 Bi-pap 45 05/05/18 09:00 131/85 05/05/18 08:00 Venturi Mask 15.0 Nasal Cannula 3.0 05/05/18 08:00 97.7 94 19 131/85 (100) 95 05/05/18 07:47 100 05/05/18 07:27 89 20 99 Venturi Mask 12.0 50 05/05/18 07:23 99 Venturi Mask 12.0 50 05/05/18 07:23 89 20 99 Venturi Mask 12.0 50 05/05/18 07:23 Venturi Mask 12.0 50 05/05/18 06:25 93 134/84 05/05/18 05:43 93 16 100 Facial 45 05/05/18 05:09 95 20 97 05/05/18 04:00 97.6 98 24 146/84 (104) 100 05/05/18 04:00 Venturi Mask 15.0 Nasal Cannula 3.0 05/05/18 04:00 93 05/05/18 03:25 95 20 96 Venturi Mask 45 05/05/18 03:12 94 20 96 Venturi Mask 45 05/05/18 03:12 94 20 96 05/05/18 00:00 96 05/05/18 00:00 97.9 97 16 134/84 (101) 100 05/05/18 00:00 Venturi Mask 15.0 Nasal Cannula 3.0 05/04/18 23:17 96 20 99 Bi-pap 45 05/04/18 23:09 94 20 97 Bi-pap 45 05/04/18 23:07 92 15 99 Facial 45 05/04/18 21:01 97 127/81 05/04/18 20:00 101 05/04/18 20:00 98.0 96 24 123/81 (95) 94 05/04/18 20:00 Nasal Cannula 3.0 Nasal Cannula 3.0 05/04/18 19:26 97 20 99 Venturi Mask 10.0 45 05/04/18 19:16 91 20 95 Venturi Mask 10.0 45 05/04/18 19:16 Venturi Mask 10.0 45 05/04/18 19:16 95 Venturi Mask 10.0 45 05/04/18 17:29 127/81 05/04/18 16:15 101 05/04/18 16:00 97.7 101 20 127/81 (96) 95 05/04/18 16:00 Venturi Mask 15.0 Venturi Mask 15.0 05/04/18 15:38 96 20 99 Venturi Mask 10.0 45 05/04/18 15:28 94 20 96 Venturi Mask 10.0 45 Intake and Output 05/04/18 05/05/18 19:00 07:00 Intake Total 780 ml 240 ml Balance 780 ml 240 ml Intake Oral 780 ml 240 ml Laboratory Tests Test 05/05/18 04:00 White Blood Count 5.0 K/UL (4.8-10.8) Red Blood Count 2.78 M/UL (4.70-6.10) L Hemoglobin 8.1 G/DL (14.2-18.0) L Hematocrit 26.2 % (42.0-52.0) L Mean Corpuscular Volume 94 FL (80-99) Mean Corpuscular Hemoglobin 29.0 PG (27.0-31.0) Mean Corpuscular Hemoglobin Concent 30.9 G/DL (32.0-36.0) L Red Cell Distribution Width 18.3 % (11.6-14.8) H Platelet Count 152 K/UL (150-450) Mean Platelet Volume 6.3 FL (6.5-10.1) L Neutrophils (%) (Auto) 78.7 % (45.0-75.0) H Lymphocytes (%) (Auto) 7.0 % (20.0-45.0) L Monocytes (%) (Auto) 8.7 % (1.0-10.0) Eosinophils (%) (Auto) 4.1 % (0.0-3.0) H Basophils (%) (Auto) 1.6 % (0.0-2.0) Prothrombin Time 19.8 SEC (9.30-11.50) H Prothromb Time International Ratio 1.9 (0.9-1.1) H Sodium Level 134 MMOL/L (136-145) L Potassium Level 5.4 MMOL/L (3.5-5.1) H Chloride Level 94 MMOL/L (98-107) L Carbon Dioxide Level 28 MMOL/L (21-32) Anion Gap 12 mmol/L (5-15) Blood Urea Nitrogen 76 mg/dL (7-18) H Creatinine 9.8 MG/DL (0.55-1.30) H Estimat Glomerular Filtration Rate 6.5 mL/min (>60) Glucose Level 87 MG/DL (74-106) Calcium Level 9.4 MG/DL (8.5-10.1) Objective HEAD AND NECK: Positive JVD.On BIPAP CARDIOVASCULAR: Regular S1 and S2 with no gallop. ABDOMEN: Soft.Obese EXTREMITIES: Status post multiple amputations, 1+ lower extremity edema. Left foot amputated Shelton Perdomo MD May 05, 2018 14:11
--- NOTE | 2018-05-05 16:01 | Infectious Diseases Prog Note ---
Assessment/Plan Problems: (1) Acute osteomyelitis of metatarsal bone of left foot Assessment & Plan: left stump wound grew MRSA and Enterobacter cloacae, will continue meropenem and vancomycin treatment for osteomyelitis of the left foot metatarsal bone for 6 weeks. continue local wound care and dressings change as per plastics supervisor. vascular recommended no revascularization at this point. will treat with iv antibiotics for 6 weeks for his left metatarsal bone osteomyelitis. will follow patient along with plastics supervisor (2) Achilles tendon infection Assessment & Plan: with open wound, already on wide spectrum antibiotics coverage , continue local wound care and dressings change , podiatry is following (3) Diabetic foot infection Assessment & Plan: continue wide spectrum antibiotics , with tight glycemic control. (4) ESRD (end stage renal disease) Assessment & Plan: on HD , renal is following (5) PVD (peripheral vascular disease) Assessment & Plan: had vascular eval , no need for angioplasty of the left leg as per vascular, on anticoagulation (6) Hepatitis B surface antigen positive Assessment & Plan: suspect due to recent vaccination , rule out active HBV infection, await viral load to confirm (7) Acute dyspnea Assessment & Plan: improving, suspect due to fluids over load, continue aggressive HD , monitor ABG, and CXR , continue BIPAP, pulmonary is following (8) Acute bacterial conjunctivitis Assessment & Plan: S/P moxifloxacin eye drops for 5 days Subjective Constitutional: Reports: no symptoms HEENT: Reports: congestion Respiratory: Reports: dry cough Breasts: Reports: no symptoms Cardiovascular: Reports: no symptoms Gastrointestinal/Abdominal: Reports: no symptoms Genitourinary: Reports: no symptoms Neurologic: Reports: no symptoms Psychiatric: Reports: no symptoms Skin: Reports: no symptoms Endocrine: Reports: no symptoms Hematologic: Reports: no symptoms Musculoskeletal: Reports: no symptoms Allergies: Coded Allergies: NO KNOWN DRUG ALLERGIES (Verified Allergy, Unknown, 03/06/18) Subjective he was transferred out of ICU , now off BIPAP, feels better less congested and not short of breath , with less pain and swelling in his left foot, no productive cough Objective Vital Signs Last 24 Hour Vital Signs Date Time Temp Pulse Resp B/P (MAP) Pulse Ox O2 Delivery O2 Flow Rate FiO2 05/05/18 15:18 104 20 99 Venturi Mask 12.0 50 05/05/18 15:15 104 20 98 Venturi Mask 12.0 50 05/05/18 14:32 97.7 05/05/18 13:58 105 144/86 05/05/18 12:00 Bi-pap Bi-pap 05/05/18 12:00 97.7 92 11 162/77 (105) 97 05/05/18 11:46 96 05/05/18 11:14 Bi-pap 05/05/18 11:03 90 20 99 Bi-pap 45 05/05/18 11:00 94 13 99 Facial 45 05/05/18 11:00 90 20 99 Bi-pap 45 05/05/18 09:00 131/85 05/05/18 08:00 Venturi Mask 15.0 Nasal Cannula 3.0 05/05/18 08:00 97.7 94 19 131/85 (100) 95 05/05/18 07:47 100 05/05/18 07:27 89 20 99 Venturi Mask 12.0 50 05/05/18 07:23 99 Venturi Mask 12.0 50 05/05/18 07:23 89 20 99 Venturi Mask 12.0 50 05/05/18 07:23 Venturi Mask 12.0 50 05/05/18 06:25 93 134/84 05/05/18 05:43 93 16 100 Facial 45 05/05/18 05:09 95 20 97 05/05/18 04:00 97.6 98 24 146/84 (104) 100 05/05/18 04:00 Venturi Mask 15.0 Nasal Cannula 3.0 05/05/18 04:00 93 05/05/18 03:25 95 20 96 Venturi Mask 45 05/05/18 03:12 94 20 96 Venturi Mask 45 05/05/18 03:12 94 20 96 05/05/18 00:00 96 05/05/18 00:00 97.9 97 16 134/84 (101) 100 05/05/18 00:00 Venturi Mask 15.0 Nasal Cannula 3.0 05/04/18 23:17 96 20 99 Bi-pap 45 05/04/18 23:09 94 20 97 Bi-pap 45 05/04/18 23:07 92 15 99 Facial 45 05/04/18 21:01 97 127/81 05/04/18 20:00 101 05/04/18 20:00 98.0 96 24 123/81 (95) 94 05/04/18 20:00 Nasal Cannula 3.0 Nasal Cannula 3.0 05/04/18 19:26 97 20 99 Venturi Mask 10.0 45 05/04/18 19:16 91 20 95 Venturi Mask 10.0 45 05/04/18 19:16 Venturi Mask 10.0 45 05/04/18 19:16 95 Venturi Mask 10.0 45 05/04/18 17:29 127/81 05/04/18 16:15 101 05/04/18 16:00 97.7 101 20 127/81 (96) 95 05/04/18 16:00 Venturi Mask 15.0 Venturi Mask 15.0 Height (Feet): 5 Height (Inches): 7.00 Weight (Pounds): 290 General Appearance: WD/WN, no acute distress HEENT: normocephalic, atraumatic, anicteric, mucous membranes moist, PERRL Respiratory/Chest: chest wall non-tender, no respiratory distress, no accessory muscle use, decreased breath sounds, crackles/rales Cardiovascular: normal peripheral pulses, normal rate, regular rhythm, no gallop/murmur, no JVD Abdomen: normal bowel sounds, soft, non tender, no organomegaly, non distended , no mass, no scars Genitourinary: normal external genitalia Extremities: no cyanosis, no clubbing Skin: no rash, no lesions, ulcers Neurologic/Psychiatric: alert, oriented x 3, responsive Lymphatic: no neck adenopathy, no groin adenopathy Musculoskeletal: normal muscle bulk, no effusion Laboratory Tests Test 05/05/18 04:00 White Blood Count 5.0 K/UL (4.8-10.8) Red Blood Count 2.78 M/UL (4.70-6.10) L Hemoglobin 8.1 G/DL (14.2-18.0) L Hematocrit 26.2 % (42.0-52.0) L Mean Corpuscular Volume 94 FL (80-99) Mean Corpuscular Hemoglobin 29.0 PG (27.0-31.0) Mean Corpuscular Hemoglobin Concent 30.9 G/DL (32.0-36.0) L Red Cell Distribution Width 18.3 % (11.6-14.8) H Platelet Count 152 K/UL (150-450) Mean Platelet Volume 6.3 FL (6.5-10.1) L Neutrophils (%) (Auto) 78.7 % (45.0-75.0) H Lymphocytes (%) (Auto) 7.0 % (20.0-45.0) L Monocytes (%) (Auto) 8.7 % (1.0-10.0) Eosinophils (%) (Auto) 4.1 % (0.0-3.0) H Basophils (%) (Auto) 1.6 % (0.0-2.0) Prothrombin Time 19.8 SEC (9.30-11.50) H Prothromb Time International Ratio 1.9 (0.9-1.1) H Sodium Level 134 MMOL/L (136-145) L Potassium Level 5.4 MMOL/L (3.5-5.1) H Chloride Level 94 MMOL/L (98-107) L Carbon Dioxide Level 28 MMOL/L (21-32) Anion Gap 12 mmol/L (5-15) Blood Urea Nitrogen 76 mg/dL (7-18) H Creatinine 9.8 MG/DL (0.55-1.30) H Estimat Glomerular Filtration Rate 6.5 mL/min (>60) Glucose Level 87 MG/DL (74-106) Calcium Level 9.4 MG/DL (8.5-10.1) Current Medications Medications (Trade) Dose Ordered Sig/Oliverio Route PRN Reason Start Time Stop Time Status Last Admin Dose Admin Acetaminophen (Tylenol) 650 mg Q6H PRN ORAL Mild Pain/Temp > 100.5 05/02/18 17:41 05/23/18 17:40 Acetaminophen/ Hydrocodone Bitart ([place] 10/325) 1 tab Q6H PRN ORAL For Pain 05/02/18 17:43 05/07/18 17:42 05/05/18 14:02 Allopurinol (Zyloprim) 100 mg DAILY ORAL 05/03/18 09:00 05/24/18 08:59 05/05/18 09:05 Calcium Carbonate (Tums) 500 mg TIDPRN PRN ORAL Nausea & Vomiting/Dyspepsia 05/02/18 17:41 06/01/18 17:40 Clonidine HCl (Catapres Tab) 0.1 mg Q2H PRN ORAL SBP > 170 05/02/18 19:15 06/01/18 13:14 Clonidine HCl (Catapres tab) 0.2 mg BID ORAL 05/02/18 18:00 05/23/18 22:29 05/04/18 17:29 Collagenase (Santyl) 1 applic DAILY TOPIC 05/05/18 09:00 06/04/18 08:59 05/05/18 09:06 Dextrose (Dextrose 50%) 25 ml Q30M PRN IV Hypoglycemia 05/02/18 18:00 05/23/18 22:59 Dextrose (Dextrose 50%) 50 ml Q30M PRN IV Hypoglycemia 05/02/18 18:00 05/23/18 22:59 Diltiazem HCl (Cardizem) 90 mg EVERY 8 HOURS ORAL 05/02/18 22:00 06/01/18 13:59 05/05/18 13:58 Docusate Sodium (Colace) 100 mg TWICE A DAY ORAL 05/02/18 18:00 05/24/18 08:59 05/05/18 09:05 Epoetin Yung (Procrit (for ESRD on dialysis)) 7,000 units SUN-SUN-SUN SUBQ 05/03/18 21:00 05/29/18 20:59 05/03/18 21:15 Finasteride (Proscar) 5 mg DAILY ORAL 05/03/18 09:00 05/24/18 08:59 05/05/18 09:05 Gabapentin (Neurontin) 300 mg DAILY ORAL 05/03/18 09:00 05/24/18 08:59 05/05/18 09:05 Heparin Sodium (Porcine) (Heparin Sod 1000 units/ml 10ml) 500 unit ONCE PRN IV FOR HD USE ONLY 05/04/18 15:00 05/05/18 23:59 Insulin Aspart (NovoLOG) BEFORE MEALS AND HS SUBQ 05/02/18 21:00 05/24/18 06:29 05/05/18 06:27 Ipratropium [place] (Atrovent) 500 mcg Q4HRT HHN 05/02/18 19:00 05/06/18 14:59 05/05/18 15:16 Meropenem 500 mg/ Sodium Chloride 55 ml @ 110 mls/hr Q24H IVPB 05/02/18 21:00 06/04/18 23:00 05/04/18 21:01 Pantoprazole (Protonix) 40 mg ACBREAKFAST ORAL 05/04/18 06:30 06/03/18 06:29 05/05/18 06:25 Sodium Chloride 1,000 ml @ 500 mls/hr Q2H PRN IVLG sbp<90 during hd 05/05/18 14:29 05/05/18 23:59 Tamsulosin HCl (Flomax) 0.4 mg BEDTIME ORAL 05/02/18 21:00 05/23/18 23:44 05/04/18 21:01 Vancomycin HCl (Vanco rx to dose) 1 ea DAILY PRN MISC Per rx protocol 05/03/18 09:00 06/04/18 23:00 Vitamin B Complex/ Vit C/Folic Acid (Nephrovite) 1 tab DAILY ORAL 05/03/18 09:00 05/26/18 08:59 05/05/18 09:05 Warfarin Sodium (Coumadin per pharmacy) 1 ea DAILY PRN MISC Per rx protocol 05/03/18 09:00 05/29/18 08:14 Warfarin Sodium (Coumadin) 6 mg COUMADIN ORAL 05/05/18 17:00 05/05/18 18:00 Jaime Casey M.D. May 05, 2018 16:01
--- NOTE | 2018-05-05 16:39 | Pulmonology Progress Note ---
Assessment/Plan Assessment/Plan Pulmonary Progress Note Assessment/Plan Assessment/Plan Problem List: 1. Diabetic foot infection 2. Acute diastolic CHF exacerbation/pulmonary edema 3. COPD w/o obvious exacerbation 4. CHU 5. ESRD on HD 6. Hx multiple amputations 7. Thrombocytopenia 8. Anemia 9. L leg DVT 10. HTN - uncontrolled 11. SVT Plan: Abx per ID Podiatric wound care/debridement as needed Monitor volumes, cont volume removed with HD Aggressive BP control Duonebs q6 Cont CPAP 10 cm H2O Cont coumadin No plans for IVC filter Repeat CXR tomorrow Subjective ROS Limited/Unobtainable: No Interval Events: Transferred out of ICU, off cardizem gtt. HD again today Constitutional: Reports: no symptoms HEENT: Repors: no symptoms Respiratory: Reports: shortness of breath Cardiovascular: Reports: no symptoms Gastrointestinal/Abdominal: Reports: no symptoms Genitourinary: Reports: no symptoms Musculoskeletal: Reports: swelling Allergies: Coded Allergies: NO KNOWN DRUG ALLERGIES (Verified Allergy, Unknown, 03/06/18) Objective Vital Signs Noted General Appearance: no acute distress, other - alert on CPAP HEENT: normocephalic, mucous membranes moist Respiratory/Chest: crackles/rales Cardiovascular: normal rate, regular rhythm Abdomen: soft, non tender Extremities: other - improving edema b/l LE Laboratory Tests 05/02/18 15:42: Random Vancomycin Level 18.9 05/03/18 04:47: White Blood Count 6.4, Red Blood Count 2.85L, Hemoglobin 8.1L, Hematocrit 26.8L , Mean Corpuscular Volume 94, Mean Corpuscular Hemoglobin 28.4, Mean Corpuscular Hemoglobin Concent 30.3L, Red Cell Distribution Width 18.3H, Platelet Count 143L, Mean Platelet Volume 6.7, Neutrophils (%) (Auto) 84.7H, Lymphocytes (%) (Auto) 3.3L, Monocytes (%) (Auto) 8.9, Eosinophils (%) (Auto) 2.4, Basophils (%) (Auto) 0.8, Prothrombin Time 20.9H, Prothromb Time International Ratio 2.1H, Sodium Level 133L, Potassium Level 5.4H, Chloride Level 95L, Carbon Dioxide Level 27, Anion Gap 11, Blood Urea Nitrogen 64H, Creatinine 8.3H, Estimat Glomerular Filtration Rate 7.9, Glucose Level 105, Calcium Level 9.7 Current Medications Medications (Trade) Dose Ordered Sig/Oliverio Route PRN Reason Start Time Stop Time Status Last Admin Dose Admin Acetaminophen (Tylenol) 650 mg Q6H PRN ORAL Mild Pain/Temp > 100.5 05/02/18 17:41 05/23/18 17:40 Acetaminophen/ Hydrocodone Bitart ([place] 10/325) 1 tab Q6H PRN ORAL For Pain 05/02/18 17:43 05/07/18 17:42 05/03/18 05:33 Allopurinol (Zyloprim) 100 mg DAILY ORAL 05/03/18 09:00 05/24/18 08:59 05/03/18 08:50 Calcium Carbonate (Tums) 500 mg TIDPRN PRN ORAL Nausea & Vomiting/Dyspepsia 05/02/18 17:41 06/01/18 17:40 Clonidine HCl (Catapres Tab) 0.1 mg Q2H PRN ORAL SBP > 170 05/02/18 19:15 06/01/18 13:14 Clonidine HCl (Catapres tab) 0.2 mg BID ORAL 05/02/18 18:00 05/23/18 22:29 05/03/18 08:51 Dextrose (Dextrose 50%) 25 ml Q30M PRN IV Hypoglycemia 05/02/18 18:00 05/23/18 22:59 Dextrose (Dextrose 50%) 50 ml Q30M PRN IV Hypoglycemia 05/02/18 18:00 05/23/18 22:59 Diltiazem HCl (Cardizem) 90 mg EVERY 8 HOURS ORAL 05/02/18 22:00 06/01/18 13:59 05/03/18 05:32 Docusate Sodium (Colace) 100 mg TWICE A DAY ORAL 05/02/18 18:00 05/24/18 08:59 05/03/18 08:50 Epoetin Yung (Procrit (for ESRD on dialysis)) 7,000 units SUN-SUN-SUN SUBQ 05/03/18 21:00 05/29/18 20:59 Finasteride (Proscar) 5 mg DAILY ORAL 05/03/18 09:00 05/24/18 08:59 05/03/18 08:50 Gabapentin (Neurontin) 300 mg DAILY ORAL 05/03/18 09:00 05/24/18 08:59 05/03/18 08:51 Heparin Sodium (Porcine) (Heparin Sod 1000 units/ml 10ml) 500 unit ONCE PRN IV DIALYSIS 05/02/18 17:42 05/03/18 23:59 Insulin Aspart (NovoLOG) BEFORE MEALS AND HS SUBQ 05/02/18 21:00 05/24/18 06:29 Ipratropium [place] (Atrovent) 500 mcg Q4HRT HHN 05/02/18 19:00 05/06/18 14:59 05/03/18 07:06 Meropenem 500 mg/ Sodium Chloride 55 ml @ 110 mls/hr Q24H IVPB 05/02/18 21:00 06/04/18 23:00 05/02/18 21:25 Moxifloxacin HCl (Vigamox) 1 drop Q8HR BOTH EYES 05/02/18 22:00 05/04/18 13:59 05/03/18 05:31 Pantoprazole (Protonix) 40 mg DAILY IVP 05/03/18 09:00 05/24/18 08:59 05/03/18 08:50 Sodium Chloride 1,000 ml @ 500 mls/hr Q2H PRN IVLG sbp<90 during hd 05/02/18 17:45 05/03/18 23:59 Tamsulosin HCl (Flomax) 0.4 mg BEDTIME ORAL 05/02/18 21:00 05/23/18 23:44 05/02/18 21:29 Vancomycin HCl (Vanco rx to dose) 1 ea DAILY PRN MISC Per rx protocol 05/03/18 09:00 06/04/18 23:00 Vitamin B Complex/ Vit C/Folic Acid (Nephrovite) 1 tab DAILY ORAL 05/03/18 09:00 05/26/18 08:59 05/03/18 08:50 Warfarin Sodium (Coumadin per pharmacy) 1 ea DAILY PRN MISC Per rx protocol 05/03/18 09:00 05/29/18 08:14 CXR: 05/04/2018 Lungs: Continued bilateral interstitial opacities. Previously seen right mid to lower lung opacity has markedly improved. Pleural space: Unremarkable. No pneumothorax. Heart: Cardiomegaly. Mediastinum: Unremarkable. Bones/joints: Unremarkable. IMPRESSION: Continued bilateral interstitial opacities/edema. Previously seen right mid to lower lung opacity has markedly improved. Subjective ROS Limited/Unobtainable: No Allergies: Coded Allergies: NO KNOWN DRUG ALLERGIES (Verified Allergy, Unknown, 03/06/18) Objective Last 24 Hour Vital Signs Date Time Temp Pulse Resp B/P (MAP) Pulse Ox O2 Delivery O2 Flow Rate FiO2 05/05/18 15:37 103 05/05/18 15:18 104 20 99 Venturi Mask 12.0 50 05/05/18 15:15 104 20 98 Venturi Mask 12.0 50 05/05/18 14:32 97.7 05/05/18 13:58 105 144/86 05/05/18 13:00 140/56 (84) 05/05/18 12:00 Bi-pap Bi-pap 05/05/18 12:00 97.7 92 11 162/77 (105) 97 05/05/18 11:46 96 05/05/18 11:14 Bi-pap 05/05/18 11:03 90 20 99 Bi-pap 45 05/05/18 11:00 94 13 99 Facial 45 05/05/18 11:00 90 20 99 Bi-pap 45 05/05/18 09:00 131/85 05/05/18 08:00 Venturi Mask 15.0 Nasal Cannula 3.0 05/05/18 08:00 97.7 94 19 131/85 (100) 95 05/05/18 07:47 100 05/05/18 07:27 89 20 99 Venturi Mask 12.0 50 05/05/18 07:23 99 Venturi Mask 12.0 50 05/05/18 07:23 89 20 99 Venturi Mask 12.0 50 05/05/18 07:23 Venturi Mask 12.0 50 05/05/18 06:25 93 134/84 05/05/18 05:43 93 16 100 Facial 45 05/05/18 05:09 95 20 97 05/05/18 04:00 97.6 98 24 146/84 (104) 100 05/05/18 04:00 Venturi Mask 15.0 Nasal Cannula 3.0 05/05/18 04:00 93 05/05/18 03:25 95 20 96 Venturi Mask 45 05/05/18 03:12 94 20 96 Venturi Mask 45 05/05/18 03:12 94 20 96 05/05/18 00:00 96 05/05/18 00:00 97.9 97 16 134/84 (101) 100 05/05/18 00:00 Venturi Mask 15.0 Nasal Cannula 3.0 05/04/18 23:17 96 20 99 Bi-pap 45 05/04/18 23:09 94 20 97 Bi-pap 45 05/04/18 23:07 92 15 99 Facial 45 05/04/18 21:01 97 127/81 05/04/18 20:00 101 05/04/18 20:00 98.0 96 24 123/81 (95) 94 05/04/18 20:00 Nasal Cannula 3.0 Nasal Cannula 3.0 05/04/18 19:26 97 20 99 Venturi Mask 10.0 45 05/04/18 19:16 91 20 95 Venturi Mask 10.0 45 05/04/18 19:16 Venturi Mask 10.0 45 05/04/18 19:16 95 Venturi Mask 10.0 45 05/04/18 17:29 127/81 Intake and Output 05/04/18 05/05/18 18:59 06:59 Intake Total 780 ml 240 ml Balance 780 ml 240 ml Intake Oral 780 ml 240 ml Laboratory Tests 05/05/18 04:00: White Blood Count 5.0, Red Blood Count 2.78L, Hemoglobin 8.1L, Hematocrit 26.2L , Mean Corpuscular Volume 94, Mean Corpuscular Hemoglobin 29.0, Mean Corpuscular Hemoglobin Concent 30.9L, Red Cell Distribution Width 18.3H, Platelet Count 152, Mean Platelet Volume 6.3L, Neutrophils (%) (Auto) 78.7H, Lymphocytes (%) (Auto) 7.0L, Monocytes (%) (Auto) 8.7, Eosinophils (%) (Auto) 4.1H, Basophils (%) (Auto) 1.6, Prothrombin Time 19.8H, Prothromb Time International Ratio 1.9H, Sodium Level 134L, Potassium Level 5.4H, Chloride Level 94L, Carbon Dioxide Level 28, Anion Gap 12, Blood Urea Nitrogen 76H, Creatinine 9.8H, Estimat Glomerular Filtration Rate 6.5, Glucose Level 87, Calcium Level 9.4 Current Medications Medications (Trade) Dose Ordered Sig/Oliverio Route PRN Reason Start Time Stop Time Status Last Admin Dose Admin Acetaminophen (Tylenol) 650 mg Q6H PRN ORAL Mild Pain/Temp > 100.5 05/02/18 17:41 05/23/18 17:40 Acetaminophen/ Hydrocodone Bitart ([place] 10/325) 1 tab Q6H PRN ORAL For Pain 05/02/18 17:43 05/07/18 17:42 05/05/18 14:02 Allopurinol (Zyloprim) 100 mg DAILY ORAL 05/03/18 09:00 05/24/18 08:59 05/05/18 09:05 Calcium Carbonate (Tums) 500 mg TIDPRN PRN ORAL Nausea & Vomiting/Dyspepsia 05/02/18 17:41 06/01/18 17:40 Clonidine HCl (Catapres Tab) 0.1 mg Q2H PRN ORAL SBP > 170 05/02/18 19:15 06/01/18 13:14 Clonidine HCl (Catapres tab) 0.2 mg BID ORAL 05/02/18 18:00 05/23/18 22:29 05/04/18 17:29 Collagenase (Santyl) 1 applic DAILY TOPIC 05/05/18 09:00 06/04/18 08:59 05/05/18 09:06 Dextrose (Dextrose 50%) 25 ml Q30M PRN IV Hypoglycemia 05/02/18 18:00 05/23/18 22:59 Dextrose (Dextrose 50%) 50 ml Q30M PRN IV Hypoglycemia 05/02/18 18:00 05/23/18 22:59 Diltiazem HCl (Cardizem) 90 mg EVERY 8 HOURS ORAL 05/02/18 22:00 06/01/18 13:59 05/05/18 13:58 Docusate Sodium (Colace) 100 mg TWICE A DAY ORAL 05/02/18 18:00 05/24/18 08:59 05/05/18 09:05 Epoetin Yung (Procrit (for ESRD on dialysis)) 7,000 units SUN-SUN-SUN SUBQ 05/03/18 21:00 05/29/18 20:59 05/03/18 21:15 Finasteride (Proscar) 5 mg DAILY ORAL 05/03/18 09:00 05/24/18 08:59 05/05/18 09:05 Gabapentin (Neurontin) 300 mg DAILY ORAL 05/03/18 09:00 05/24/18 08:59 05/05/18 09:05 Heparin Sodium (Porcine) (Heparin Sod 1000 units/ml 10ml) 500 unit ONCE PRN IV FOR HD USE ONLY 05/04/18 15:00 05/05/18 23:59 Insulin Aspart (NovoLOG) BEFORE MEALS AND HS SUBQ 05/02/18 21:00 05/24/18 06:29 05/05/18 06:27 Ipratropium Almyra (Atrovent) 500 mcg Q4HRT HHN 05/02/18 19:00 05/06/18 14:59 05/05/18 15:16 Meropenem 500 mg/ Sodium Chloride 55 ml @ 110 mls/hr Q24H IVPB 05/02/18 21:00 06/04/18 23:00 05/04/18 21:01 Pantoprazole (Protonix) 40 mg ACBREAKFAST ORAL 05/04/18 06:30 06/03/18 06:29 05/05/18 06:25 Sodium Chloride 1,000 ml @ 500 mls/hr Q2H PRN IVLG sbp<90 during hd 05/05/18 14:29 05/05/18 23:59 Tamsulosin HCl (Flomax) 0.4 mg BEDTIME ORAL 05/02/18 21:00 05/23/18 23:44 05/04/18 21:01 Vancomycin HCl (Vanco rx to dose) 1 ea DAILY PRN MISC Per rx protocol 05/03/18 09:00 06/04/18 23:00 Vitamin B Complex/ Vit C/Folic Acid (Nephrovite) 1 tab DAILY ORAL 05/03/18 09:00 05/26/18 08:59 05/05/18 09:05 Warfarin Sodium (Coumadin per pharmacy) 1 ea DAILY PRN MISC Per rx protocol 05/03/18 09:00 05/29/18 08:14 Warfarin Sodium (Coumadin) 6 mg COUMADIN ORAL 05/05/18 17:00 05/05/18 18:00 Sanjay Keller MD May 05, 2018 16:39
[2018-05-05] MEDS ORDERED: Warfarin Sodium 3mg ORAL SCH (17:00)
--- NOTE | 2018-05-05 19:25 | NUR ---
NURSE NOTES: Report received from CLEVE Alvarez. Patient seen in bed in rich position with venturi mask on at 50%, no acute respiratory distress present. denies any pain at this time. alert, verbally responsive, able to make needs known. IV site to Left forearm 20g, left wrist 22g, is intact. Noted with Av shunt to left thigh, intact. Bed is in lowest position. Call light is within easy reach. will continue to monitor.
--- NOTE | 2018-05-05 19:33 | NUR ---
HAND-OFF: Report given to Beni Lee RN.
--- NOTE | 2018-05-05 19:49 | General Progress Note ---
Assessment/Plan Assessment/Plan Assessment - Heme (+) stools - Anemia and thrombocytopenia - DVT - on anticoagulation - Hep B S Ag (+) - DM - PVD - CHU - PVD / amputation - Poor Px Recommendations - Patient appropriately has declined GI w/u - Will follow conservatively - Monitor CBC while on anticoagulation - Replace Fe IV - PPI - if H&H declines on anticoagulation, may need to reconsider IVC filter - Check HBV quantitative PCR - d/c planning per PMD Subjective Allergies: Coded Allergies: NO KNOWN DRUG ALLERGIES (Verified Allergy, Unknown, 03/06/18) Subjective Eating OK on FM O2 no abdominal complaints Objective Last 24 Hour Vital Signs Date Time Temp Pulse Resp B/P (MAP) Pulse Ox O2 Delivery O2 Flow Rate FiO2 05/05/18 19:48 102 20 98 Venturi Mask 12.0 50 05/05/18 18:06 135/72 05/05/18 16:00 98.1 102 16 154/89 (110) 98 05/05/18 16:00 Bi-pap Bi-pap 05/05/18 15:37 103 05/05/18 15:18 104 20 99 Venturi Mask 12.0 50 05/05/18 15:15 104 20 98 Venturi Mask 12.0 50 05/05/18 14:32 97.7 05/05/18 13:58 105 144/86 05/05/18 12:00 Bi-pap Bi-pap 05/05/18 12:00 97.7 92 11 162/77 (105) 97 05/05/18 11:46 96 05/05/18 11:14 Bi-pap 05/05/18 11:03 90 20 99 Bi-pap 45 05/05/18 11:00 94 13 99 Facial 45 05/05/18 11:00 90 20 99 Bi-pap 45 05/05/18 09:00 131/85 05/05/18 08:00 Venturi Mask 15.0 Nasal Cannula 3.0 05/05/18 08:00 97.7 94 19 131/85 (100) 95 05/05/18 07:47 100 05/05/18 07:27 89 20 99 Venturi Mask 12.0 50 05/05/18 07:23 99 Venturi Mask 12.0 50 05/05/18 07:23 89 20 99 Venturi Mask 12.0 50 05/05/18 07:23 Venturi Mask 12.0 50 05/05/18 06:25 93 134/84 05/05/18 05:43 93 16 100 Facial 45 05/05/18 05:09 95 20 97 05/05/18 04:00 97.6 98 24 146/84 (104) 100 05/05/18 04:00 Venturi Mask 15.0 Nasal Cannula 3.0 05/05/18 04:00 93 05/05/18 03:25 95 20 96 Venturi Mask 45 05/05/18 03:12 94 20 96 Venturi Mask 45 05/05/18 03:12 94 20 96 05/05/18 00:00 96 05/05/18 00:00 97.9 97 16 134/84 (101) 100 05/05/18 00:00 Venturi Mask 15.0 Nasal Cannula 3.0 05/04/18 23:17 96 20 99 Bi-pap 45 05/04/18 23:09 94 20 97 Bi-pap 45 05/04/18 23:07 92 15 99 Facial 45 05/04/18 21:01 97 127/81 05/04/18 20:00 101 05/04/18 20:00 98.0 96 24 123/81 (95) 94 05/04/18 20:00 Nasal Cannula 3.0 Nasal Cannula 3.0 Intake and Output 05/04/18 05/05/18 18:59 06:59 Intake Total 780 ml 240 ml Balance 780 ml 240 ml Intake Oral 780 ml 240 ml Laboratory Tests 05/05/18 04:00: White Blood Count 5.0, Red Blood Count 2.78L, Hemoglobin 8.1L, Hematocrit 26.2L , Mean Corpuscular Volume 94, Mean Corpuscular Hemoglobin 29.0, Mean Corpuscular Hemoglobin Concent 30.9L, Red Cell Distribution Width 18.3H, Platelet Count 152, Mean Platelet Volume 6.3L, Neutrophils (%) (Auto) 78.7H, Lymphocytes (%) (Auto) 7.0L, Monocytes (%) (Auto) 8.7, Eosinophils (%) (Auto) 4.1H, Basophils (%) (Auto) 1.6, Prothrombin Time 19.8H, Prothromb Time International Ratio 1.9H, Sodium Level 134L, Potassium Level 5.4H, Chloride Level 94L, Carbon Dioxide Level 28, Anion Gap 12, Blood Urea Nitrogen 76H, Creatinine 9.8H, Estimat Glomerular Filtration Rate 6.5, Glucose Level 87, Calcium Level 9.4 Height (Feet): 5 Height (Inches): 7.00 Weight (Pounds): 290 Objective Obese AA man NCAT coarse BS, power RR obese abd nonfocal (+) UE amputations Bee Krueger MD May 05, 2018 19:49
[2018-05-05] MEDS: Meropenem 500 MG in NS 55 ML IVPB SCH (20:55)
[2018-05-05] MEDS: Tamsulosin 0.4mg cap ORAL SCH (20:55)
--- NOTE | 2018-05-05 21:01 | General Progress Note ---
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 per heme will hold off on ivc filter coumadin per pharmacy doing well fe deficiency anemia, started on iron and epo GI eval appreciated, patient refuses GI workup dialysis dependent pulmonary fup cards fup echo noted on cardizem drip converted to sinus rhythm monior platelets hgb dvt and ulcer prohylaxis dc plans to snf tomorrow mat Platt and Dr Soto as weel as Dr Fink who have cleared patient for dc Subjective Allergies: Coded Allergies: NO KNOWN DRUG ALLERGIES (Verified Allergy, Unknown, 03/06/18) Subjective above noted feels better breathing better in sinus rhythm Objective Last 24 Hour Vital Signs Date Time Temp Pulse Resp B/P (MAP) Pulse Ox O2 Delivery O2 Flow Rate FiO2 05/05/18 20:56 107 153/79 05/05/18 20:00 97.7 107 16 79/89 (86) 95 05/05/18 20:00 111 05/05/18 19:58 106 20 99 Venturi Mask 12.0 50 05/05/18 19:50 Venturi Mask 12.0 50 05/05/18 19:48 102 20 98 Venturi Mask 12.0 50 05/05/18 19:48 98 Venturi Mask 12.0 50 05/05/18 18:06 135/72 05/05/18 16:00 98.1 102 16 154/89 (110) 98 05/05/18 16:00 Bi-pap Bi-pap 05/05/18 15:37 103 05/05/18 15:18 104 20 99 Venturi Mask 12.0 50 05/05/18 15:15 104 20 98 Venturi Mask 12.0 50 05/05/18 14:32 97.7 05/05/18 13:58 105 144/86 05/05/18 12:00 Bi-pap Bi-pap 05/05/18 12:00 97.7 92 11 162/77 (105) 97 05/05/18 11:46 96 05/05/18 11:14 Bi-pap 05/05/18 11:03 90 20 99 Bi-pap 45 05/05/18 11:00 94 13 99 Facial 45 05/05/18 11:00 90 20 99 Bi-pap 45 05/05/18 09:00 131/85 05/05/18 08:00 Venturi Mask 15.0 Nasal Cannula 3.0 05/05/18 08:00 97.7 94 19 131/85 (100) 95 05/05/18 07:47 100 05/05/18 07:27 89 20 99 Venturi Mask 12.0 50 05/05/18 07:23 99 Venturi Mask 12.0 50 05/05/18 07:23 89 20 99 Venturi Mask 12.0 50 05/05/18 07:23 Venturi Mask 12.0 50 05/05/18 06:25 93 134/84 05/05/18 05:43 93 16 100 Facial 45 05/05/18 05:09 95 20 97 05/05/18 04:00 97.6 98 24 146/84 (104) 100 05/05/18 04:00 Venturi Mask 15.0 Nasal Cannula 3.0 05/05/18 04:00 93 05/05/18 03:25 95 20 96 Venturi Mask 45 05/05/18 03:12 94 20 96 Venturi Mask 45 05/05/18 03:12 94 20 96 05/05/18 00:00 96 05/05/18 00:00 97.9 97 16 134/84 (101) 100 05/05/18 00:00 Venturi Mask 15.0 Nasal Cannula 3.0 05/04/18 23:17 96 20 99 Bi-pap 45 05/04/18 23:09 94 20 97 Bi-pap 45 05/04/18 23:07 92 15 99 Facial 45 05/04/18 21:01 97 127/81 Intake and Output 05/04/18 05/05/18 18:59 06:59 Intake Total 780 ml 240 ml Balance 780 ml 240 ml Intake Oral 780 ml 240 ml Laboratory Tests 05/05/18 04:00: White Blood Count 5.0, Red Blood Count 2.78L, Hemoglobin 8.1L, Hematocrit 26.2L , Mean Corpuscular Volume 94, Mean Corpuscular Hemoglobin 29.0, Mean Corpuscular Hemoglobin Concent 30.9L, Red Cell Distribution Width 18.3H, Platelet Count 152, Mean Platelet Volume 6.3L, Neutrophils (%) (Auto) 78.7H, Lymphocytes (%) (Auto) 7.0L, Monocytes (%) (Auto) 8.7, Eosinophils (%) (Auto) 4.1H, Basophils (%) (Auto) 1.6, Prothrombin Time 19.8H, Prothromb Time International Ratio 1.9H, Sodium Level 134L, Potassium Level 5.4H, Chloride Level 94L, Carbon Dioxide Level 28, Anion Gap 12, Blood Urea Nitrogen 76H, Creatinine 9.8H, Estimat Glomerular Filtration Rate 6.5, Glucose Level 87, Calcium Level 9.4 Height (Feet): 5 Height (Inches): 7.00 Weight (Pounds): 290 General Appearance: WD/WN, alert Neck: supple Cardiovascular: normal rate Respiratory/Chest: decreased breath sounds Abdomen: soft Objective left lower extremity dressing intact clean no bleeding Moe Sewell MD May 05, 2018 21:01
[2018-05-06] VITALS: BP 136/70
[2018-05-06] MEDS: Ipratropium 0.02% Inh Soln 2.5ml UD HHN SCH ×4 (03:23→14:46)
[2018-05-06 04:00] VITALS: BP 126/82
[2018-05-06] MEDS: dilTIAZem HCl 90mg tab ORAL SCH ×3 (06:04→21:11)
[2018-05-06] MEDS: HYDROcodone/Acetamin 10/325 tab ORAL PRN ×2 (06:07→20:05)
[2018-05-06 06:19] LABS: INR 2.1 (0.9-1.1)
[2018-05-06] MEDS: NovoLOG Insulin Flexpen SUBQ SCH ×4 (06:30→20:05)
--- NOTE | 2018-05-06 07:32 | NUR ---
HAND-OFF: Report given to Himanshu Valentine RN .
[2018-05-06 08:00] VITALS: BP 135/75
[2018-05-06] MEDS ORDERED: Vancomycin 1gm/D5W 275ml IVPB ONE ×2 (08:00)
[2018-05-06] MEDS: cloNIDine 0.2mg Tab ORAL SCH ×2 (09:27→17:31)
[2018-05-06] MEDS: Allopurinol 100mg Tab ORAL SCH (09:27)
[2018-05-06] MEDS: Docusate 100mg cap ORAL SCH ×2 (09:27→17:31)
[2018-05-06] MEDS: Nephrovite tab (Rena-Vite) ORAL SCH (09:27)
--- NOTE | 2018-05-06 09:45 | NUR ---
*-* DISCHARGE PLANNING *-* PATIENT HAS BEEN REFERRED TO: [facility] P:[phone] F:[phone]
--- NOTE | 2018-05-06 11:20 | General Progress Note ---
Assessment/Plan Assessment/Plan Assessment - Heme (+) stools - Anemia and thrombocytopenia - DVT - on anticoagulation - Hep B S Ag (+) - DM - PVD - CHU - PVD / amputation - Poor Px Recommendations - Patient appropriately has declined GI w/u - Will follow conservatively - Monitor CBC while on anticoagulation - Replace Fe IV - PPI - if H&H declines on anticoagulation, may need to reconsider IVC filter - Check HBV quantitative PCR - d/c planning per PMD Subjective Allergies: Coded Allergies: NO KNOWN DRUG ALLERGIES (Verified Allergy, Unknown, 03/06/18) Subjective Eating OK on FM O2 no abdominal complaints Objective Last 24 Hour Vital Signs Date Time Temp Pulse Resp B/P (MAP) Pulse Ox O2 Delivery O2 Flow Rate FiO2 05/06/18 10:34 91 20 99 Venturi Mask 10.0 45 05/06/18 10:25 93 20 98 Venturi Mask 10.0 45 05/06/18 09:27 135/75 05/06/18 07:57 95 20 98 Venturi Mask 10.0 45 05/06/18 07:50 94 18 98 Venturi Mask 10.0 45 05/06/18 07:29 Venturi Mask 10.0 45 05/06/18 07:27 97 Venturi Mask 10.0 45 05/06/18 06:04 91 126/82 05/06/18 05:16 Bi-pap Bi-pap 05/06/18 04:00 Bi-pap Bi-pap 05/06/18 04:00 98.6 91 13 126/82 (97) 100 05/06/18 04:00 12.0 50 05/06/18 03:33 99 20 98 Bi-pap 45 05/06/18 03:33 45 05/06/18 03:24 82 16 98 Facial 45 05/06/18 03:23 99 16 98 Bi-pap 45 05/06/18 03:20 94 05/06/18 01:46 78 17 100 Facial 45 05/06/18 00:04 98 05/06/18 00:00 45 05/06/18 00:00 98.3 92 13 136/70 (92) 100 05/06/18 00:00 Bi-pap Venturi Mask 05/05/18 23:26 84 21 100 Facial 45 05/05/18 23:26 102 20 100 Venturi Mask 12.0 50 05/05/18 23:11 104 20 98 Venturi Mask 12.0 50 05/05/18 20:56 107 153/79 05/05/18 20:00 Bi-pap Venturi Mask 05/05/18 20:00 97.7 107 16 79/89 (86) 95 05/05/18 20:00 111 05/05/18 19:58 106 20 99 Venturi Mask 12.0 50 05/05/18 19:50 Venturi Mask 12.0 50 05/05/18 19:48 102 20 98 Venturi Mask 12.0 50 05/05/18 19:48 98 Venturi Mask 12.0 50 05/05/18 18:06 135/72 05/05/18 16:00 98.1 102 16 154/89 (110) 98 05/05/18 16:00 Bi-pap Bi-pap 05/05/18 15:37 103 05/05/18 15:18 104 20 99 Venturi Mask 12.0 50 05/05/18 15:15 104 20 98 Venturi Mask 12.0 50 05/05/18 14:32 97.7 05/05/18 13:58 105 144/86 05/05/18 12:00 Bi-pap Bi-pap 05/05/18 12:00 97.7 92 11 162/77 (105) 97 05/05/18 11:46 96 Intake and Output 05/05/18 05/06/18 19:00 07:00 Intake Total 620 ml 295 ml Output Total 4000 ml Balance -3380 ml 295 ml Intake Oral 620 ml 240 ml IV Total 55 ml Hemodialysis UF 4000 ml # Bowel Movements 1 Laboratory Tests 05/06/18 03:35: Prothrombin Time 21.4H, Prothromb Time International Ratio 2.1H, Random Vancomycin Level 15.9 Height (Feet): 5 Height (Inches): 7.00 Weight (Pounds): 290 Objective Obese AA man NCAT coarse BS, ronsuraj RR obese abd nonfocal (+) UE amputations Bee Krueger MD May 06, 2018 11:20
--- NOTE | 2018-05-06 11:27 | NUR ---
NURSE NOTES: received pt in the bed, awake, alert, oriented, vital signs stable, no co rain, venturi mask 45%, skin warm and dry to touch, dressing on the left leg dry and intact, obese, Bipap at night, bed in low position, call light within reach.
[2018-05-06 12:00] VITALS: BP 139/72
--- NOTE | 2018-05-06 14:13 | Nephrology Progress Note ---
Assessment/Plan Problem List: (1) ESRD (end stage renal disease) (2) Diabetic infection of left foot (3) Acute DVT (deep venous thrombosis) Assessment: LLE (4) PVD (peripheral vascular disease) (5) Anemia Assessment: NO SIG CHANGE (6) Iron deficiency (7) Thrombocytopenia Assessment: better (8) HTN (hypertension) Assessment: better Plan HDtomorrow continue Epogen abxs anticoagulation follow labs will give additional IV Iron Subjective Subjective feels better On FM Objective Objective Last 24 Hour Vital Signs Date Time Temp Pulse Resp B/P (MAP) Pulse Ox O2 Delivery O2 Flow Rate FiO2 05/06/18 12:00 Bi-pap Bi-pap 05/06/18 12:00 97.3 93 20 139/72 (94) 98 05/06/18 12:00 89 05/06/18 10:34 91 20 99 Venturi Mask 10.0 45 05/06/18 10:25 93 20 98 Venturi Mask 10.0 45 05/06/18 09:27 135/75 05/06/18 08:00 Bi-pap Bi-pap 05/06/18 08:00 97.5 95 18 135/75 (95) 98 05/06/18 07:57 95 20 98 Venturi Mask 10.0 45 05/06/18 07:50 94 18 98 Venturi Mask 10.0 45 05/06/18 07:29 Venturi Mask 10.0 45 05/06/18 07:27 97 Venturi Mask 10.0 45 05/06/18 06:04 91 126/82 05/06/18 05:16 Bi-pap Bi-pap 05/06/18 04:00 Bi-pap Bi-pap 05/06/18 04:00 98.6 91 13 126/82 (97) 100 05/06/18 04:00 12.0 50 05/06/18 03:33 99 20 98 Bi-pap 45 05/06/18 03:33 45 05/06/18 03:24 82 16 98 Facial 45 05/06/18 03:23 99 16 98 Bi-pap 45 05/06/18 03:20 94 05/06/18 01:46 78 17 100 Facial 45 05/06/18 00:04 98 05/06/18 00:00 45 05/06/18 00:00 98.3 92 13 136/70 (92) 100 05/06/18 00:00 Bi-pap Venturi Mask 05/05/18 23:26 84 21 100 Facial 45 05/05/18 23:26 102 20 100 Venturi Mask 12.0 50 05/05/18 23:11 104 20 98 Venturi Mask 12.0 50 05/05/18 20:56 107 153/79 05/05/18 20:00 Bi-pap Venturi Mask 05/05/18 20:00 97.7 107 16 79/89 (86) 95 05/05/18 20:00 111 05/05/18 19:58 106 20 99 Venturi Mask 12.0 50 05/05/18 19:50 Venturi Mask 12.0 50 05/05/18 19:48 102 20 98 Venturi Mask 12.0 50 05/05/18 19:48 98 Venturi Mask 12.0 50 05/05/18 18:06 135/72 05/05/18 16:00 98.1 102 16 154/89 (110) 98 05/05/18 16:00 Bi-pap Bi-pap 05/05/18 15:37 103 05/05/18 15:18 104 20 99 Venturi Mask 12.0 50 05/05/18 15:15 104 20 98 Venturi Mask 12.0 50 05/05/18 14:32 97.7 Intake and Output 05/05/18 05/06/18 19:00 07:00 Intake Total 620 ml 295 ml Output Total 4000 ml Balance -3380 ml 295 ml Intake Oral 620 ml 240 ml IV Total 55 ml Hemodialysis UF 4000 ml # Bowel Movements 1 Laboratory Tests 05/06/18 03:35: Prothrombin Time 21.4H, Prothromb Time International Ratio 2.1H, Random Vancomycin Level 15.9 Height (Feet): 5 Height (Inches): 7.00 Weight (Pounds): 293 Cardiovascular: normal rate Respiratory/Chest: lungs clear Extremities: moderate edema - less on Johan Gloria MD May 06, 2018 14:13
--- NOTE | 2018-05-06 14:35 | Cardiac Electrophysiology PN ---
Assessment/Plan Status Narrative Normal left ventricular chamber size, systolic function and wall motion. Left ventricular ejection fraction estimated to be 60-65 %. Moderate left ventricular hypertrophy by 2-D. Small posterior pericardial effusion. Moderate left atrial enlargement. Mild right atrial enlargement. Right ventricular chamber size is within normal limits. Moderate aortic valve calcification with decreased cusp excursion c/w aortic stenosis. Moderately thickened mitral valve leaflets with normal excursion. Mitral annulus and aortic root calcification. Pulmonic valve not well visualized. Normal tricuspid valve structure. IVC dilated at 2.4 cm with slight physiologic collapse suggestive of in Assessment/Plan 1. Congestive heart failure. BNP > 35,000 . Better after hemodialysis daily for 3 days now 2. Troponin elevation due to renal failure. No chest pain. Echocardiogram EF 65%. 3. Hypertension. On hemodialysis, clonidine 0.2 mg bid and Cardizem 90 po q 8 hr 4. Sustained SVT at rate 170. Stable on Cardizem 90 po q 8 hr 5. Morbid obesity. 6. Peripheral vascular disease left metatarsal and finger amputations 7. Respiratory failure/ COPD. On BIPAP 8. Acute left leg DVT on heparin drip and Coumadin per Rx. INR 2.0 9. Lower extremity cellulitis, on iv Abx per ID DW RN Subjective Subjective In SR Off BIPAP overnight. at bedside. Wants to go home. Objective Last 24 Hour Vital Signs Date Time Temp Pulse Resp B/P (MAP) Pulse Ox O2 Delivery O2 Flow Rate FiO2 05/06/18 14:26 89 139/72 05/06/18 12:00 Bi-pap Bi-pap 05/06/18 12:00 97.3 93 20 139/72 (94) 98 05/06/18 12:00 89 05/06/18 10:34 91 20 99 Venturi Mask 10.0 45 05/06/18 10:25 93 20 98 Venturi Mask 10.0 45 05/06/18 09:27 135/75 05/06/18 08:00 Bi-pap Bi-pap 05/06/18 08:00 97.5 95 18 135/75 (95) 98 05/06/18 07:57 95 20 98 Venturi Mask 10.0 45 05/06/18 07:50 94 18 98 Venturi Mask 10.0 45 05/06/18 07:29 Venturi Mask 10.0 45 05/06/18 07:27 97 Venturi Mask 10.0 45 05/06/18 06:04 91 126/82 05/06/18 05:16 Bi-pap Bi-pap 05/06/18 04:00 Bi-pap Bi-pap 05/06/18 04:00 98.6 91 13 126/82 (97) 100 05/06/18 04:00 12.0 50 05/06/18 03:33 99 20 98 Bi-pap 45 05/06/18 03:33 45 05/06/18 03:24 82 16 98 Facial 45 05/06/18 03:23 99 16 98 Bi-pap 45 05/06/18 03:20 94 05/06/18 01:46 78 17 100 Facial 45 05/06/18 00:04 98 05/06/18 00:00 45 05/06/18 00:00 98.3 92 13 136/70 (92) 100 05/06/18 00:00 Bi-pap Venturi Mask 05/05/18 23:26 84 21 100 Facial 45 05/05/18 23:26 102 20 100 Venturi Mask 12.0 50 05/05/18 23:11 104 20 98 Venturi Mask 12.0 50 05/05/18 20:56 107 153/79 05/05/18 20:00 Bi-pap Venturi Mask 05/05/18 20:00 97.7 107 16 79/89 (86) 95 05/05/18 20:00 111 05/05/18 19:58 106 20 99 Venturi Mask 12.0 50 05/05/18 19:50 Venturi Mask 12.0 50 05/05/18 19:48 102 20 98 Venturi Mask 12.0 50 05/05/18 19:48 98 Venturi Mask 12.0 50 05/05/18 18:06 135/72 05/05/18 16:00 98.1 102 16 154/89 (110) 98 05/05/18 16:00 Bi-pap Bi-pap 05/05/18 15:37 103 05/05/18 15:18 104 20 99 Venturi Mask 12.0 50 05/05/18 15:15 104 20 98 Venturi Mask 12.0 50 Intake and Output 05/05/18 05/06/18 19:00 07:00 Intake Total 620 ml 295 ml Output Total 4000 ml Balance -3380 ml 295 ml Intake Oral 620 ml 240 ml IV Total 55 ml Hemodialysis UF 4000 ml # Bowel Movements 1 Laboratory Tests Test 05/06/18 03:35 Prothrombin Time 21.4 SEC (9.30-11.50) H Prothromb Time International Ratio 2.1 (0.9-1.1) H Random Vancomycin Level 15.9 ug/mL Objective HEAD AND NECK: Positive JVD. CARDIOVASCULAR: Regular S1 and S2 with no gallop. ABDOMEN: Soft.Obese EXTREMITIES: Status post right hand and Left foot amputated Shelton Perdomo MD May 06, 2018 14:35
--- NOTE | 2018-05-06 15:19 | NUR ---
CARDIO TECH NOTES SPOKE WITH [facility] FROM [facility] ACCEPTED PENDING AUTHORIZATION FOR TRANSPORTATION TO DIALYSIS. BLUE CROSS CLOSED TODAY. WILL FOLLOW UP IN AM.
--- NOTE | 2018-05-06 15:34 | Pulmonology Progress Note ---
Assessment/Plan Assessment/Plan Pulmonary Progress Note Assessment/Plan Assessment/Plan Problem List: 1. Diabetic foot infection 2. Acute diastolic CHF exacerbation/pulmonary edema 3. COPD w/o obvious exacerbation 4. CHU 5. ESRD on HD 6. Hx multiple amputations 7. Thrombocytopenia 8. Anemia 9. L leg DVT 10. HTN - uncontrolled 11. SVT Plan: Abx per ID Podiatric wound care/debridement as needed Monitor volumes, cont volume removed with HD Aggressive BP control Duonebs q6 Cont CPAP 10 cm H2O Cont coumadin No plans for IVC filter Repeat CXR tomorrow Subjective ROS Limited/Unobtainable: No Interval Events: Transferred out of ICU, off cardizem gtt. HD again today Constitutional: Reports: no symptoms HEENT: Repors: no symptoms Respiratory: Reports: shortness of breath Cardiovascular: Reports: no symptoms Gastrointestinal/Abdominal: Reports: no symptoms Genitourinary: Reports: no symptoms Musculoskeletal: Reports: swelling Allergies: Coded Allergies: NO KNOWN DRUG ALLERGIES (Verified Allergy, Unknown, 03/06/18) Objective Vital Signs Noted General Appearance: no acute distress, other - alert on CPAP HEENT: normocephalic, mucous membranes moist Respiratory/Chest: crackles/rales Cardiovascular: normal rate, regular rhythm Abdomen: soft, non tender Extremities: other - improving edema b/l LE Laboratory Tests 05/02/18 15:42: Random Vancomycin Level 18.9 05/03/18 04:47: White Blood Count 6.4, Red Blood Count 2.85L, Hemoglobin 8.1L, Hematocrit 26.8L , Mean Corpuscular Volume 94, Mean Corpuscular Hemoglobin 28.4, Mean Corpuscular Hemoglobin Concent 30.3L, Red Cell Distribution Width 18.3H, Platelet Count 143L, Mean Platelet Volume 6.7, Neutrophils (%) (Auto) 84.7H, Lymphocytes (%) (Auto) 3.3L, Monocytes (%) (Auto) 8.9, Eosinophils (%) (Auto) 2.4, Basophils (%) (Auto) 0.8, Prothrombin Time 20.9H, Prothromb Time International Ratio 2.1H, Sodium Level 133L, Potassium Level 5.4H, Chloride Level 95L, Carbon Dioxide Level 27, Anion Gap 11, Blood Urea Nitrogen 64H, Creatinine 8.3H, Estimat Glomerular Filtration Rate 7.9, Glucose Level 105, Calcium Level 9.7 Current Medications Medications (Trade) Dose Ordered Sig/Oliverio Route PRN Reason Start Time Stop Time Status Last Admin Dose Admin Acetaminophen (Tylenol) 650 mg Q6H PRN ORAL Mild Pain/Temp > 100.5 05/02/18 17:41 05/23/18 17:40 Acetaminophen/ Hydrocodone Bitart ([place] 10/325) 1 tab Q6H PRN ORAL For Pain 05/02/18 17:43 05/07/18 17:42 05/03/18 05:33 Allopurinol (Zyloprim) 100 mg DAILY ORAL 05/03/18 09:00 05/24/18 08:59 05/03/18 08:50 Calcium Carbonate (Tums) 500 mg TIDPRN PRN ORAL Nausea & Vomiting/Dyspepsia 05/02/18 17:41 06/01/18 17:40 Clonidine HCl (Catapres Tab) 0.1 mg Q2H PRN ORAL SBP > 170 05/02/18 19:15 06/01/18 13:14 Clonidine HCl (Catapres tab) 0.2 mg BID ORAL 05/02/18 18:00 05/23/18 22:29 05/03/18 08:51 Dextrose (Dextrose 50%) 25 ml Q30M PRN IV Hypoglycemia 05/02/18 18:00 05/23/18 22:59 Dextrose (Dextrose 50%) 50 ml Q30M PRN IV Hypoglycemia 05/02/18 18:00 05/23/18 22:59 Diltiazem HCl (Cardizem) 90 mg EVERY 8 HOURS ORAL 05/02/18 22:00 06/01/18 13:59 05/03/18 05:32 Docusate Sodium (Colace) 100 mg TWICE A DAY ORAL 05/02/18 18:00 05/24/18 08:59 05/03/18 08:50 Epoetin Yung (Procrit (for ESRD on dialysis)) 7,000 units SUN-SUN-SUN SUBQ 05/03/18 21:00 05/29/18 20:59 Finasteride (Proscar) 5 mg DAILY ORAL 05/03/18 09:00 05/24/18 08:59 05/03/18 08:50 Gabapentin (Neurontin) 300 mg DAILY ORAL 05/03/18 09:00 05/24/18 08:59 05/03/18 08:51 Heparin Sodium (Porcine) (Heparin Sod 1000 units/ml 10ml) 500 unit ONCE PRN IV DIALYSIS 05/02/18 17:42 05/03/18 23:59 Insulin Aspart (NovoLOG) BEFORE MEALS AND HS SUBQ 05/02/18 21:00 05/24/18 06:29 Ipratropium [place] (Atrovent) 500 mcg Q4HRT HHN 05/02/18 19:00 05/06/18 14:59 05/03/18 07:06 Meropenem 500 mg/ Sodium Chloride 55 ml @ 110 mls/hr Q24H IVPB 05/02/18 21:00 06/04/18 23:00 05/02/18 21:25 Moxifloxacin HCl (Vigamox) 1 drop Q8HR BOTH EYES 05/02/18 22:00 05/04/18 13:59 05/03/18 05:31 Pantoprazole (Protonix) 40 mg DAILY IVP 05/03/18 09:00 05/24/18 08:59 05/03/18 08:50 Sodium Chloride 1,000 ml @ 500 mls/hr Q2H PRN IVLG sbp<90 during hd 05/02/18 17:45 05/03/18 23:59 Tamsulosin HCl (Flomax) 0.4 mg BEDTIME ORAL 05/02/18 21:00 05/23/18 23:44 05/02/18 21:29 Vancomycin HCl (Vanco rx to dose) 1 ea DAILY PRN MISC Per rx protocol 05/03/18 09:00 06/04/18 23:00 Vitamin B Complex/ Vit C/Folic Acid (Nephrovite) 1 tab DAILY ORAL 05/03/18 09:00 05/26/18 08:59 05/03/18 08:50 Warfarin Sodium (Coumadin per pharmacy) 1 ea DAILY PRN MISC Per rx protocol 05/03/18 09:00 05/29/18 08:14 CXR: 05/04/2018 Lungs: Continued bilateral interstitial opacities. Previously seen right mid to lower lung opacity has markedly improved. Pleural space: Unremarkable. No pneumothorax. Heart: Cardiomegaly. Mediastinum: Unremarkable. Bones/joints: Unremarkable. IMPRESSION: Continued bilateral interstitial opacities/edema. Previously seen right mid to lower lung opacity has markedly improved. Subjective ROS Limited/Unobtainable: No Allergies: Coded Allergies: NO KNOWN DRUG ALLERGIES (Verified Allergy, Unknown, 03/06/18) Objective Last 24 Hour Vital Signs Date Time Temp Pulse Resp B/P (MAP) Pulse Ox O2 Delivery O2 Flow Rate FiO2 05/06/18 14:55 87 18 100 Venturi Mask 10.0 45 05/06/18 14:46 90 18 95 Venturi Mask 10.0 45 05/06/18 14:26 89 139/72 05/06/18 12:00 Bi-pap Bi-pap 05/06/18 12:00 97.3 93 20 139/72 (94) 98 05/06/18 12:00 89 05/06/18 10:34 91 20 99 Venturi Mask 10.0 45 05/06/18 10:25 93 20 98 Venturi Mask 10.0 45 05/06/18 09:27 135/75 05/06/18 08:00 Bi-pap Bi-pap 05/06/18 08:00 97.5 95 18 135/75 (95) 98 05/06/18 07:57 95 20 98 Venturi Mask 10.0 45 05/06/18 07:50 94 18 98 Venturi Mask 10.0 45 05/06/18 07:29 Venturi Mask 10.0 45 05/06/18 07:27 97 Venturi Mask 10.0 45 05/06/18 06:04 91 126/82 05/06/18 05:16 Bi-pap Bi-pap 05/06/18 04:00 Bi-pap Bi-pap 05/06/18 04:00 98.6 91 13 126/82 (97) 100 05/06/18 04:00 12.0 50 05/06/18 03:33 99 20 98 Bi-pap 45 05/06/18 03:33 45 05/06/18 03:24 82 16 98 Facial 45 05/06/18 03:23 99 16 98 Bi-pap 45 05/06/18 03:20 94 05/06/18 01:46 78 17 100 Facial 45 05/06/18 00:04 98 05/06/18 00:00 45 05/06/18 00:00 98.3 92 13 136/70 (92) 100 05/06/18 00:00 Bi-pap Venturi Mask 05/05/18 23:26 84 21 100 Facial 45 05/05/18 23:26 102 20 100 Venturi Mask 12.0 50 05/05/18 23:11 104 20 98 Venturi Mask 12.0 50 05/05/18 20:56 107 153/79 05/05/18 20:00 Bi-pap Venturi Mask 05/05/18 20:00 97.7 107 16 79/89 (86) 95 05/05/18 20:00 111 05/05/18 19:58 106 20 99 Venturi Mask 12.0 50 05/05/18 19:50 Venturi Mask 12.0 50 05/05/18 19:48 102 20 98 Venturi Mask 12.0 50 05/05/18 19:48 98 Venturi Mask 12.0 50 05/05/18 18:06 135/72 05/05/18 16:00 98.1 102 16 154/89 (110) 98 05/05/18 16:00 Bi-pap Bi-pap 05/05/18 15:37 103 Intake and Output 05/05/18 05/06/18 19:00 07:00 Intake Total 620 ml 295 ml Output Total 4000 ml Balance -3380 ml 295 ml Intake Oral 620 ml 240 ml IV Total 55 ml Hemodialysis UF 4000 ml # Bowel Movements 1 Laboratory Tests 05/06/18 03:35: Prothrombin Time 21.4H, Prothromb Time International Ratio 2.1H, Random Vancomycin Level 15.9 Current Medications Medications (Trade) Dose Ordered Sig/Oliverio Route PRN Reason Start Time Stop Time Status Last Admin Dose Admin Acetaminophen (Tylenol) 650 mg Q6H PRN ORAL Mild Pain/Temp > 100.5 05/02/18 17:41 05/23/18 17:40 Acetaminophen/ Hydrocodone Bitart ([place] 10/325) 1 tab Q6H PRN ORAL For Pain 05/02/18 17:43 05/07/18 17:42 05/06/18 06:07 Allopurinol (Zyloprim) 100 mg DAILY ORAL 05/03/18 09:00 05/24/18 08:59 05/06/18 09:27 Calcium Carbonate (Tums) 500 mg TIDPRN PRN ORAL Nausea & Vomiting/Dyspepsia 05/02/18 17:41 06/01/18 17:40 Clonidine HCl (Catapres Tab) 0.1 mg Q2H PRN ORAL SBP > 170 05/02/18 19:15 06/01/18 13:14 Clonidine HCl (Catapres tab) 0.2 mg BID ORAL 05/02/18 18:00 05/23/18 22:29 05/06/18 09:27 Collagenase (Santyl) 1 applic DAILY TOPIC 05/05/18 09:00 06/04/18 08:59 05/06/18 09:30 Dextrose (Dextrose 50%) 25 ml Q30M PRN IV Hypoglycemia 05/02/18 18:00 05/23/18 22:59 Dextrose (Dextrose 50%) 50 ml Q30M PRN IV Hypoglycemia 05/02/18 18:00 05/23/18 22:59 Diltiazem HCl (Cardizem) 90 mg EVERY 8 HOURS ORAL 05/02/18 22:00 06/01/18 13:59 05/06/18 14:26 Docusate Sodium (Colace) 100 mg TWICE A DAY ORAL 05/02/18 18:00 05/24/18 08:59 05/06/18 09:27 Epoetin Yung (Procrit (for ESRD on dialysis)) 7,000 units SUN-SUN-SUN SUBQ 05/03/18 21:00 05/29/18 20:59 05/03/18 21:15 Finasteride (Proscar) 5 mg DAILY ORAL 05/03/18 09:00 05/24/18 08:59 05/06/18 09:27 Gabapentin (Neurontin) 300 mg DAILY ORAL 05/03/18 09:00 05/24/18 08:59 05/06/18 09:27 Heparin Sodium (Porcine) (Heparin Sod 1000 units/ml 10ml) 500 unit ONCE IV 05/07/18 14:15 05/07/18 23:59 Insulin Aspart (NovoLOG) BEFORE MEALS AND HS SUBQ 05/02/18 21:00 05/24/18 06:29 05/06/18 12:00 Iron Sucrose 100 mg/Sodium Chloride 60 ml @ 240 mls/hr ONCE IV 05/06/18 17:00 05/06/18 19:00 Meropenem 500 mg/ Sodium Chloride 55 ml @ 110 mls/hr Q24H IVPB 05/02/18 21:00 06/04/18 23:00 05/05/18 20:55 Pantoprazole (Protonix) 40 mg ACBREAKFAST ORAL 05/04/18 06:30 06/03/18 06:29 05/06/18 06:04 Sodium Chloride 1,000 ml @ 500 mls/hr Q2H PRN IVLG sbp<90 during hd 05/07/18 14:05 05/07/18 23:59 Tamsulosin HCl (Flomax) 0.4 mg BEDTIME ORAL 05/02/18 21:00 05/23/18 23:44 05/05/18 20:55 Vancomycin HCl (Vanco rx to dose) 1 ea DAILY PRN MISC Per rx protocol 05/03/18 09:00 06/04/18 23:00 Vitamin B Complex/ Vit C/Folic Acid (Nephrovite) 1 tab DAILY ORAL 05/03/18 09:00 05/26/18 08:59 05/06/18 09:27 Warfarin Sodium (Coumadin per pharmacy) 1 ea DAILY PRN MISC Per rx protocol 05/03/18 09:00 05/29/18 08:14 Warfarin Sodium (Coumadin) 6 mg COUMADIN ORAL 05/06/18 17:00 05/06/18 18:00 Sanjay Keller MD May 06, 2018 15:33
[2018-05-06 16:00] VITALS: BP 145/79
[2018-05-06] MEDS ORDERED: Iron Sucrose 100 MG in NS 55 ML IV SCH (17:00)
[2018-05-06] MEDS ORDERED: Warfarin Sodium 3mg ORAL SCH (17:00)
--- NOTE | 2018-05-06 17:18 | NUR ---
NURSE NOTES: RANJIT on 05/07/18, call office, spoke with IVY.
--- NOTE | 2018-05-06 18:32 | NUR ---
NURSE NOTES: pt not discharge, no bed, dr. Sewell notified.
--- NOTE | 2018-05-06 19:15 | NUR ---
NURSE NOTES: Received report from Himanshu, pt. in bed awake, A/O x's4- able to make needs known, pt. appears to be resting comfortably, bed in lowest position and call light within easy reach, bed alarm on side rails up x's 3- safety brakes engaged, safety, measures continued, will continue with plan of care. no signs of acute cardiac or respiratory distress noted, pt. appears to be tolerating current venturi mask settings fio2 at 45%- no distress noted, dressings dry and intact, comfort measures provided, RFA 20G and Lt. wrist 20G both ivs intact and patent, safety measures continued, will continue with plan of care.
--- NOTE | 2018-05-06 19:19 | NUR ---
HAND-OFF: Report given to PAULA POON.
--- NOTE | 2018-05-06 19:27 | Infectious Diseases Prog Note ---
Assessment/Plan Problems: (1) Acute osteomyelitis of metatarsal bone of left foot Assessment & Plan: left stump wound grew MRSA and Enterobacter cloacae, will continue meropenem and vancomycin treatment for osteomyelitis of the left foot metatarsal bone for 6 weeks. continue local wound care and dressings change as per boiler helper. vascular recommended no revascularization at this point. will treat with iv antibiotics for 6 weeks for his left metatarsal bone osteomyelitis. will follow patient along with boiler helper (2) Achilles tendon infection Assessment & Plan: with open wound, already on wide spectrum antibiotics coverage , continue local wound care and dressings change , podiatry is following (3) Diabetic foot infection Assessment & Plan: continue wide spectrum antibiotics , with tight glycemic control. (4) ESRD (end stage renal disease) Assessment & Plan: on HD , renal is following (5) PVD (peripheral vascular disease) Assessment & Plan: had vascular eval , no need for angioplasty of the left leg as per vascular, on anticoagulation (6) Hepatitis B surface antigen positive Assessment & Plan: suspect due to recent vaccination , rule out active HBV infection, await viral load to confirm (7) Acute dyspnea Assessment & Plan: improving, suspect due to fluids over load, continue aggressive HD , monitor ABG, and CXR , continue BIPAP, pulmonary is following (8) Acute bacterial conjunctivitis Assessment & Plan: S/P moxifloxacin eye drops for 5 days Subjective Constitutional: Reports: no symptoms HEENT: Reports: congestion Respiratory: Reports: dry cough Breasts: Reports: no symptoms Cardiovascular: Reports: no symptoms Gastrointestinal/Abdominal: Reports: no symptoms Genitourinary: Reports: no symptoms Neurologic: Reports: no symptoms Psychiatric: Reports: no symptoms Skin: Reports: no symptoms Endocrine: Reports: no symptoms Hematologic: Reports: no symptoms Musculoskeletal: Reports: no symptoms Allergies: Coded Allergies: NO KNOWN DRUG ALLERGIES (Verified Allergy, Unknown, 03/06/18) Subjective he was transferred out of ICU , now off BIPAP, feels better less congested and not short of breath , with less pain and swelling in his left foot, no productive cough Objective Vital Signs Last 24 Hour Vital Signs Date Time Temp Pulse Resp B/P (MAP) Pulse Ox O2 Delivery O2 Flow Rate FiO2 05/06/18 17:31 145/79 05/06/18 16:00 91 05/06/18 16:00 97.7 89 14 145/79 (101) 99 1/21/19 16:00 Bi-pap Bi-pap 05/06/18 14:55 87 18 100 Venturi Mask 10.0 45 05/06/18 14:46 90 18 95 Venturi Mask 10.0 45 05/06/18 14:26 89 139/72 05/06/18 12:00 Bi-pap Bi-pap 05/06/18 12:00 97.3 93 20 139/72 (94) 98 05/06/18 12:00 89 05/06/18 10:34 91 20 99 Venturi Mask 10.0 45 05/06/18 10:25 93 20 98 Venturi Mask 10.0 45 05/06/18 09:27 135/75 05/06/18 08:00 Bi-pap Bi-pap 05/06/18 08:00 97.5 95 18 135/75 (95) 98 05/06/18 07:57 95 20 98 Venturi Mask 10.0 45 05/06/18 07:50 94 18 98 Venturi Mask 10.0 45 05/06/18 07:29 Venturi Mask 10.0 45 05/06/18 07:27 97 Venturi Mask 10.0 45 05/06/18 06:04 91 126/82 05/06/18 05:16 Bi-pap Bi-pap 05/06/18 04:00 Bi-pap Bi-pap 05/06/18 04:00 98.6 91 13 126/82 (97) 100 05/06/18 04:00 12.0 50 05/06/18 03:33 99 20 98 Bi-pap 45 05/06/18 03:33 45 05/06/18 03:24 82 16 98 Facial 45 05/06/18 03:23 99 16 98 Bi-pap 45 05/06/18 03:20 94 05/06/18 01:46 78 17 100 Facial 45 05/06/18 00:04 98 05/06/18 00:00 45 05/06/18 00:00 98.3 92 13 136/70 (92) 100 05/06/18 00:00 Bi-pap Venturi Mask 05/05/18 23:26 84 21 100 Facial 45 05/05/18 23:26 102 20 100 Venturi Mask 12.0 50 05/05/18 23:11 104 20 98 Venturi Mask 12.0 50 05/05/18 20:56 107 153/79 05/05/18 20:00 Bi-pap Venturi Mask 05/05/18 20:00 97.7 107 16 79/89 (86) 95 05/05/18 20:00 111 05/05/18 19:58 106 20 99 Venturi Mask 12.0 50 05/05/18 19:50 Venturi Mask 12.0 50 05/05/18 19:48 102 20 98 Venturi Mask 12.0 50 05/05/18 19:48 98 Venturi Mask 12.0 50 Height (Feet): 5 Height (Inches): 7.00 Weight (Pounds): 293 General Appearance: WD/WN, no acute distress HEENT: normocephalic, atraumatic, anicteric, mucous membranes moist, PERRL, pharynx normal, supple, no JVD Respiratory/Chest: chest wall non-tender, lungs clear, normal breath sounds, no respiratory distress, no accessory muscle use Cardiovascular: normal peripheral pulses, normal rate, regular rhythm, no gallop/murmur, no JVD Abdomen: normal bowel sounds, soft, non tender, no organomegaly, non distended , no mass, no scars Genitourinary: normal external genitalia Extremities: no cyanosis, no clubbing, other - left fot stump wound with good granulation and left achilis tendon wound Skin: no rash, no lesions Neurologic/Psychiatric: alert, oriented x 3, responsive Lymphatic: no neck adenopathy, no groin adenopathy Musculoskeletal: normal muscle bulk, no effusion Laboratory Tests Test 05/06/18 03:35 Prothrombin Time 21.4 SEC (9.30-11.50) H Prothromb Time International Ratio 2.1 (0.9-1.1) H Random Vancomycin Level 15.9 ug/mL Current Medications Medications (Trade) Dose Ordered Sig/Oliverio Route PRN Reason Start Time Stop Time Status Last Admin Dose Admin Acetaminophen (Tylenol) 650 mg Q6H PRN ORAL Mild Pain/Temp > 100.5 05/02/18 17:41 05/23/18 17:40 Acetaminophen/ Hydrocodone Bitart ([place] 10/325) 1 tab Q6H PRN ORAL For Pain 05/02/18 17:43 05/07/18 17:42 05/06/18 06:07 Allopurinol (Zyloprim) 100 mg DAILY ORAL 05/03/18 09:00 05/24/18 08:59 05/06/18 09:27 Calcium Carbonate (Tums) 500 mg TIDPRN PRN ORAL Nausea & Vomiting/Dyspepsia 05/02/18 17:41 06/01/18 17:40 Clonidine HCl (Catapres Tab) 0.1 mg Q2H PRN ORAL SBP > 170 05/02/18 19:15 06/01/18 13:14 Clonidine HCl (Catapres tab) 0.2 mg BID ORAL 05/02/18 18:00 05/23/18 22:29 05/06/18 17:31 Collagenase (Santyl) 1 applic DAILY TOPIC 05/05/18 09:00 06/04/18 08:59 05/06/18 09:30 Dextrose (Dextrose 50%) 25 ml Q30M PRN IV Hypoglycemia 05/02/18 18:00 05/23/18 22:59 Dextrose (Dextrose 50%) 50 ml Q30M PRN IV Hypoglycemia 05/02/18 18:00 05/23/18 22:59 Diltiazem HCl (Cardizem) 90 mg EVERY 8 HOURS ORAL 05/02/18 22:00 06/01/18 13:59 05/06/18 14:26 Docusate Sodium (Colace) 100 mg TWICE A DAY ORAL 05/02/18 18:00 05/24/18 08:59 05/06/18 17:31 Epoetin Yung (Procrit (for ESRD on dialysis)) 7,000 units SUN-SUN-SUN SUBQ 05/03/18 21:00 05/29/18 20:59 05/03/18 21:15 Finasteride (Proscar) 5 mg DAILY ORAL 05/03/18 09:00 05/24/18 08:59 05/06/18 09:27 Gabapentin (Neurontin) 300 mg DAILY ORAL 05/03/18 09:00 05/24/18 08:59 05/06/18 09:27 Heparin Sodium (Porcine) (Heparin Sod 1000 units/ml 10ml) 500 unit ONCE IV 05/07/18 14:15 05/07/18 23:59 Insulin Aspart (NovoLOG) BEFORE MEALS AND HS SUBQ 05/02/18 21:00 05/24/18 06:29 05/06/18 12:00 Meropenem 500 mg/ Sodium Chloride 55 ml @ 110 mls/hr Q24H IVPB 05/02/18 21:00 06/04/18 23:00 05/05/18 20:55 Pantoprazole (Protonix) 40 mg ACBREAKFAST ORAL 05/04/18 06:30 06/03/18 06:29 05/06/18 06:04 Sodium Chloride 1,000 ml @ 500 mls/hr Q2H PRN IVLG sbp<90 during hd 05/07/18 14:05 05/07/18 23:59 Tamsulosin HCl (Flomax) 0.4 mg BEDTIME ORAL 05/02/18 21:00 05/23/18 23:44 05/05/18 20:55 Vancomycin HCl (Vanco rx to dose) 1 ea DAILY PRN MISC Per rx protocol 05/03/18 09:00 06/04/18 23:00 Vitamin B Complex/ Vit C/Folic Acid (Nephrovite) 1 tab DAILY ORAL 05/03/18 09:00 05/26/18 08:59 05/06/18 09:27 Warfarin Sodium (Coumadin per pharmacy) 1 ea DAILY PRN MISC Per rx protocol 05/03/18 09:00 05/29/18 08:14 Jaime Casey M.D. May 06, 2018 19:27
[2018-05-06 20:00] VITALS: BP 143/77
[2018-05-06] MEDS: Meropenem 500 MG in NS 55 ML IVPB SCH (20:05)
[2018-05-06] MEDS: Tamsulosin 0.4mg cap ORAL SCH (20:05)
--- NOTE | 2018-05-06 20:09 | General Progress Note ---
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 per heme will hold off on ivc filter coumadin per pharmacy doing well fe deficiency anemia, started on iron and epo GI eval appreciated, patient refuses GI workup dialysis dependent pulmonary fup cards fup echo noted on cardizem drip converted to sinus rhythm monior platelets hgb dvt and ulcer prohylaxis dc plans to snf today mat Platt and Dr Soto as well as Dr Fink who have cleared patient for dc , Subjective Allergies: Coded Allergies: NO KNOWN DRUG ALLERGIES (Verified Allergy, Unknown, 03/06/18) Subjective above noted feels better breathing better in sinus rhythm Objective Last 24 Hour Vital Signs Date Time Temp Pulse Resp B/P (MAP) Pulse Ox O2 Delivery O2 Flow Rate FiO2 05/06/18 19:23 92 15 100 Facial 45 05/06/18 19:23 100 Bi-pap 45 05/06/18 19:23 Bi-pap 45 05/06/18 17:31 145/79 05/06/18 16:00 91 05/06/18 16:00 97.7 89 14 145/79 (101) 99 05/06/18 16:00 Bi-pap Bi-pap 05/06/18 14:55 87 18 100 Venturi Mask 10.0 45 05/06/18 14:46 90 18 95 Venturi Mask 10.0 45 05/06/18 14:26 89 139/72 05/06/18 12:00 Bi-pap Bi-pap 05/06/18 12:00 97.3 93 20 139/72 (94) 98 05/06/18 12:00 89 05/06/18 10:34 91 20 99 Venturi Mask 10.0 45 05/06/18 10:25 93 20 98 Venturi Mask 10.0 45 05/06/18 09:27 135/75 05/06/18 08:00 Bi-pap Bi-pap 05/06/18 08:00 97.5 95 18 135/75 (95) 98 05/06/18 07:57 95 20 98 Venturi Mask 10.0 45 05/06/18 07:50 94 18 98 Venturi Mask 10.0 45 05/06/18 07:29 Venturi Mask 10.0 45 05/06/18 07:27 97 Venturi Mask 10.0 45 05/06/18 06:04 91 126/82 05/06/18 05:16 Bi-pap Bi-pap 05/06/18 04:00 Bi-pap Bi-pap 05/06/18 04:00 98.6 91 13 126/82 (97) 100 05/06/18 04:00 12.0 50 05/06/18 03:33 99 20 98 Bi-pap 45 05/06/18 03:33 45 05/06/18 03:24 82 16 98 Facial 45 05/06/18 03:23 99 16 98 Bi-pap 45 05/06/18 03:20 94 05/06/18 01:46 78 17 100 Facial 45 05/06/18 00:04 98 05/06/18 00:00 45 05/06/18 00:00 98.3 92 13 136/70 (92) 100 05/06/18 00:00 Bi-pap Venturi Mask 05/05/18 23:26 84 21 100 Facial 45 05/05/18 23:26 102 20 100 Venturi Mask 12.0 50 05/05/18 23:11 104 20 98 Venturi Mask 12.0 50 05/05/18 20:56 107 153/79 Intake and Output 05/05/18 05/06/18 19:00 07:00 Intake Total 620 ml 295 ml Output Total 4000 ml Balance -3380 ml 295 ml Intake Oral 620 ml 240 ml IV Total 55 ml Hemodialysis UF 4000 ml # Bowel Movements 1 Laboratory Tests 05/06/18 03:35: Prothrombin Time 21.4H, Prothromb Time International Ratio 2.1H, Random Vancomycin Level 15.9 Height (Feet): 5 Height (Inches): 7.00 Weight (Pounds): 293 General Appearance: WD/WN, no apparent distress Neck: supple Cardiovascular: normal rate Respiratory/Chest: decreased breath sounds Abdomen: soft Objective left lower extremity dressing intact clean no bleeding Moe Sewell MD May 06, 2018 20:09
[2018-05-06] MEDS: Epogen (for ESRD on dialysis) SUBQ SCH (21:11)
--- NOTE | 2018-05-06 22:48 | NUR ---
HAND-OFF: Report given to Shahid POON, pt. remains stable and no signs of distress noted. Pt. transferred to telemetry 210-2.
--- NOTE | 2018-05-06 22:50 | NUR ---
NURSE NOTES: Received pt from SDU unit. Pt is awake, AOx4. In no acute distress. Denies any pain or discomfort. Oriented to room and unit. Bed in lowest position, call light within reach. Will continue plan of care.
[2018-05-06] MEDS ORDERED: Heparin Sod 1000 units/ml 10ml IV PRN (23:00)
[2018-05-06] MEDS ORDERED: HYDROcodone/Acetamin 10/325 tab ORAL PRN (23:45)
[2018-05-07] VITALS: BP 123/70
[2018-05-07 04:07] VITALS: BP 130/69
[2018-05-07] MEDS: dilTIAZem HCl 90mg tab ORAL SCH ×3 (06:24→22:23)
[2018-05-07] MEDS: NovoLOG Insulin Flexpen SUBQ SCH ×4 (06:29→22:40)
[2018-05-07 07:14] LABS: ANION GAP 12 mmol/L (5-15); BLOOD UREA NITROGEN 81 mg/dL (7-18); CALCIUM 9.4 MG/DL (8.5-10.1); CARBON DIOXIDE 28 MMOL/L (21-32); CHLORIDE 94 MMOL/L (98-107); CREATININE 10.4 MG/DL (0.55-1.30); POTASSIUM 5.4 MMOL/L (3.5-5.1); SODIUM 134 MMOL/L (136-145)
[2018-05-07 07:22] LABS: INR 2.6 (0.9-1.1)
[2018-05-07 07:26] LABS: HEMATOCRIT 25.5 % (42.0-52.0); HEMOGLOBIN 7.8 G/DL (14.2-18.0); MEAN CORPUSCULAR VOLUME 95 FL (80-99); PLATELET COUNT 170 K/UL (150-450); RED BLOOD COUNT 2.69 M/UL (4.70-6.10); RED CELL DISTRIBUTION WIDTH 19.1 % (11.6-14.8); WHITE BLOOD COUNT 5.8 K/UL (4.8-10.8)
--- NOTE | 2018-05-07 07:35 | NUR ---
NURSE NOTES: Received report from Shahid POON. Pt is awake, alert, oriented x 4, resting in bed with head of bed elevated to high rich's. RT at bedside switching from Bipap to Venturi mask at 45%. Pt has left thigh AV shunt for dialysis, scheduled to be dialyzed today. Peripheral IV lines present on right UA #20G, and left wrist #20G, both saline locks, patent/intact. Pt has dressing in place on left foot, dry/intact. Will reassess and change dressing during my shift. Call light is placed within easy reach, bed in lowest position, two side rails up, brakes engaged, alarm on. Will continue to monitor pt, and follow plan of care per MD orders and protocol.
--- NOTE | 2018-05-07 07:43 | NUR ---
HAND-OFF: Report given to CLEVE Travis.
[2018-05-07] MEDS: Ipratropium 0.02% Inh Soln 2.5ml UD HHN PRN ×2 (07:44→22:55)
--- NOTE | 2018-05-07 07:47 | NUR ---
RESPIRATORY NOTE: pt taken off CPAP at 0735 and placed on VM at 45%. pt had SOB and is currently receiving breathing tx. will cont to monitor Addendum: 05/07/18 at 0749 by VARINDER MAZA RT No redness or skin breakdown visible around facial area.
[2018-05-07 08:00] VITALS: BP 158/77
[2018-05-07] MEDS ORDERED: cloNIDine 0.2mg Tab ORAL SCH (09:00)
[2018-05-07] MEDS: Allopurinol 100mg Tab ORAL SCH (09:34)
[2018-05-07] MEDS: Docusate 100mg cap ORAL SCH ×2 (09:34→17:33)
[2018-05-07] MEDS: Nephrovite tab (Rena-Vite) ORAL SCH (09:35)
--- NOTE | 2018-05-07 10:35 | Cardiac Electrophysiology PN ---
Assessment/Plan Status Narrative Normal left ventricular chamber size, systolic function and wall motion. Left ventricular ejection fraction estimated to be 60-65 %. Moderate left ventricular hypertrophy by 2-D. Small posterior pericardial effusion. Moderate left atrial enlargement. Mild right atrial enlargement. Right ventricular chamber size is within normal limits. Moderate aortic valve calcification with decreased cusp excursion c/w aortic stenosis. Moderately thickened mitral valve leaflets with normal excursion. Mitral annulus and aortic root calcification. Pulmonic valve not well visualized. Normal tricuspid valve structure. IVC dilated at 2.4 cm with slight physiologic collapse suggestive of in Assessment/Plan 1. Congestive heart failure. BNP > 35,000 .On hemodialysis 2. Troponin elevation due to renal failure. No chest pain. Echocardiogram EF 65%. 3. Hypertension. On hemodialysis, clonidine 0.2 mg bid and Cardizem 90 po q 8 hr 4. Sustained SVT at rate 170. Stable on Cardizem 90 po q 8 hr 5. Morbid obesity. 6. Peripheral vascular disease left metatarsal and finger amputations 7. Respiratory failure/ COPD. On BIPAP 8. Acute left leg DVT on heparin drip and Coumadin per Rx. INR 2.6 9. Lower extremity cellulitis, on iv Abx per ID DW RN Subjective Subjective In SR . Slept with CPAP overnight. Wants to go home. Objective Last 24 Hour Vital Signs Date Time Temp Pulse Resp B/P (MAP) Pulse Ox O2 Delivery O2 Flow Rate FiO2 05/07/18 09:35 133/76 05/07/18 07:54 95 22 99 Venturi Mask 10.0 45 05/07/18 07:46 94 24 96 Venturi Mask 10.0 45 05/07/18 07:46 Venturi Mask 10.0 45 05/07/18 07:45 96 Venturi Mask 10.0 45 05/07/18 06:24 92 133/76 05/07/18 05:49 86 14 99 Facial 45 05/07/18 04:07 97.2 97 19 130/69 (89) 95 05/07/18 04:05 97 05/07/18 03:21 94 15 98 Facial 45 05/07/18 01:22 82 14 99 Facial 45 05/07/18 00:00 97.4 92 18 123/70 (87) 96 05/07/18 00:00 92 05/06/18 22:40 92 15 99 Facial 45 05/06/18 22:26 94 18 99 Facial 45 05/06/18 21:11 72 136/79 05/06/18 20:35 97.7 05/06/18 20:00 97.9 89 18 143/77 (99) 99 05/06/18 20:00 Bi-pap Bi-pap 05/06/18 20:00 93 05/06/18 19:23 92 15 100 Facial 45 05/06/18 19:23 100 Bi-pap 45 05/06/18 19:23 Bi-pap 45 05/06/18 17:31 145/79 05/06/18 16:00 91 05/06/18 16:00 97.7 89 14 145/79 (101) 99 05/06/18 16:00 Bi-pap Bi-pap 05/06/18 14:55 87 18 100 Venturi Mask 10.0 45 05/06/18 14:46 90 18 95 Venturi Mask 10.0 45 05/06/18 14:26 89 139/72 05/06/18 12:00 Bi-pap Bi-pap 05/06/18 12:00 97.3 93 20 139/72 (94) 98 05/06/18 12:00 89 05/06/18 10:34 91 20 99 Venturi Mask 10.0 45 Intake and Output 05/06/18 05/07/18 19:00 07:00 Intake Total 320 ml 470 ml Balance 320 ml 470 ml Intake Oral 320 ml IV Total 110 ml Other 360 ml # Bowel Movements 3 1 Laboratory Tests Test 05/07/18 06:26 White Blood Count 5.8 K/UL (4.8-10.8) Red Blood Count 2.69 M/UL (4.70-6.10) L Hemoglobin 7.8 G/DL (14.2-18.0) L Hematocrit 25.5 % (42.0-52.0) L Mean Corpuscular Volume 95 FL (80-99) Mean Corpuscular Hemoglobin 29.1 PG (27.0-31.0) Mean Corpuscular Hemoglobin Concent 30.7 G/DL (32.0-36.0) L Red Cell Distribution Width 19.1 % (11.6-14.8) H Platelet Count 170 K/UL (150-450) Mean Platelet Volume 6.7 FL (6.5-10.1) Neutrophils (%) (Auto) % (45.0-75.0) Lymphocytes (%) (Auto) % (20.0-45.0) Monocytes (%) (Auto) % (1.0-10.0) Eosinophils (%) (Auto) % (0.0-3.0) Basophils (%) (Auto) % (0.0-2.0) Differential Total Cells Counted 100 Neutrophils % (Manual) 80 % (45-75) H Lymphocytes % (Manual) 4 % (20-45) L Monocytes % (Manual) 9 % (1-10) Eosinophils % (Manual) 5 % (0-3) H Basophils % (Manual) 2 % (0-2) Band Neutrophils 0 % (0-8) Platelet Estimate Adequate Platelet Morphology Normal Hypochromasia 3+ Anisocytosis 2+ Prothrombin Time 25.7 SEC (9.30-11.50) H Prothromb Time International Ratio 2.6 (0.9-1.1) H Sodium Level 134 MMOL/L (136-145) L Potassium Level 5.4 MMOL/L (3.5-5.1) H Chloride Level 94 MMOL/L (98-107) L Carbon Dioxide Level 28 MMOL/L (21-32) Anion Gap 12 mmol/L (5-15) Blood Urea Nitrogen 81 mg/dL (7-18) H Creatinine 10.4 MG/DL (0.55-1.30) H Estimat Glomerular Filtration Rate 6.1 mL/min (>60) Glucose Level 97 MG/DL (74-106) Calcium Level 9.4 MG/DL (8.5-10.1) Objective HEAD AND NECK: Positive JVD. CARDIOVASCULAR: Regular S1 and S2 with no gallop. ABDOMEN: Soft.Obese EXTREMITIES: Status post right hand and Left foot amputated Shelton Perdomo MD May 07, 2018 10:35
[2018-05-07 12:00] VITALS: BP 139/50
[2018-05-07] MEDS ORDERED: Heparin Sod 1000 units/ml 10ml IV SCH (14:15)
--- NOTE | 2018-05-07 15:02 | Nephrology Progress Note ---
Assessment/Plan Problem List: (1) ESRD (end stage renal disease) (2) Diabetic infection of left foot (3) Acute DVT (deep venous thrombosis) Assessment: LLE (4) PVD (peripheral vascular disease) (5) Anemia Assessment: NO SIG CHANGE (6) Iron deficiency (7) Thrombocytopenia Assessment: better (8) HTN (hypertension) Assessment: better Plan HD as tolerated continue Epogen abxs anticoagulation follow labs IV Iron Subjective Subjective seen on dialysis on FM Objective Objective Last 24 Hour Vital Signs Date Time Temp Pulse Resp B/P (MAP) Pulse Ox O2 Delivery O2 Flow Rate FiO2 05/07/18 09:35 133/76 05/07/18 08:00 97.7 96 20 158/77 (104) 94 05/07/18 07:54 95 22 99 Venturi Mask 10.0 45 05/07/18 07:46 94 24 96 Venturi Mask 10.0 45 05/07/18 07:46 Venturi Mask 10.0 45 05/07/18 07:45 96 Venturi Mask 10.0 45 05/07/18 06:24 92 133/76 05/07/18 05:49 86 14 99 Facial 45 05/07/18 04:07 97.2 97 19 130/69 (89) 95 05/07/18 04:05 97 05/07/18 03:21 94 15 98 Facial 45 05/07/18 01:22 82 14 99 Facial 45 05/07/18 00:00 97.4 92 18 123/70 (87) 96 05/07/18 00:00 92 05/06/18 22:40 92 15 99 Facial 45 05/06/18 22:26 94 18 99 Facial 45 05/06/18 21:11 72 136/79 05/06/18 20:35 97.7 05/06/18 20:00 97.9 89 18 143/77 (99) 99 05/06/18 20:00 Bi-pap Bi-pap 05/06/18 20:00 93 05/06/18 19:23 92 15 100 Facial 45 05/06/18 19:23 100 Bi-pap 45 05/06/18 19:23 Bi-pap 45 05/06/18 17:31 145/79 05/06/18 16:00 91 05/06/18 16:00 97.7 89 14 145/79 (101) 99 05/06/18 16:00 Bi-pap Bi-pap 05/06/18 14:55 87 18 100 Venturi Mask 10.0 45 Intake and Output 05/06/18 05/07/18 19:00 07:00 Intake Total 320 ml 470 ml Balance 320 ml 470 ml Intake Oral 320 ml IV Total 110 ml Other 360 ml # Bowel Movements 3 1 Laboratory Tests 05/07/18 06:26: White Blood Count 5.8, Red Blood Count 2.69L, Hemoglobin 7.8L, Hematocrit 25.5L , Mean Corpuscular Volume 95, Mean Corpuscular Hemoglobin 29.1, Mean Corpuscular Hemoglobin Concent 30.7L, Red Cell Distribution Width 19.1H, Platelet Count 170, Mean Platelet Volume 6.7, Neutrophils (%) (Auto) , Lymphocytes (%) (Auto) , Monocytes (%) (Auto) , Eosinophils (%) (Auto) , Basophils (%) (Auto) , Differential Total Cells Counted 100, Neutrophils % ( Manual) 80H, Lymphocytes % (Manual) 4L, Monocytes % (Manual) 9, Eosinophils % ( Manual) 5H, Basophils % (Manual) 2, Band Neutrophils 0, Platelet Estimate Adequate, Platelet Morphology Normal, Hypochromasia 3+, Anisocytosis 2+, Prothrombin Time 25.7H, Prothromb Time International Ratio 2.6H, Sodium Level 134L, Potassium Level 5.4H, Chloride Level 94L, Carbon Dioxide Level 28, Anion Gap 12, Blood Urea Nitrogen 81H, Creatinine 10.4H, Estimat Glomerular Filtration Rate 6.1, Glucose Level 97, Calcium Level 9.4 Height (Feet): 5 Height (Inches): 7.00 Weight (Pounds): 293 Cardiovascular: normal rate Respiratory/Chest: lungs clear, rhonchi - bilaterally Extremities: moderate edema - less Johan Harper MD May 07, 2018 15:02
--- NOTE | 2018-05-07 15:33 | Pulmonology Progress Note ---
Assessment/Plan Assessment/Plan Pulmonary Progress Note Assessment/Plan Assessment/Plan Problem List: 1. Diabetic foot infection 2. Acute diastolic CHF exacerbation/pulmonary edema 3. COPD w/o obvious exacerbation 4. CHU 5. ESRD on HD 6. Hx multiple amputations 7. Thrombocytopenia improved 8. Anemia 9. L leg DVT 10. HTN - uncontrolled 11. SVT Plan: Abx per ID Podiatric wound care/debridement as needed Monitor volumes, cont volume removed with HD Aggressive BP control Duonebs q6 Cont CPAP 10 cm H2O Cont coumadin No plans for IVC filter Repeat CXR tomorrow Subjective ROS Limited/Unobtainable: No Interval Events: Transferred out of ICU, off cardizem gtt. HD again today Constitutional: Reports: no symptoms HEENT: Repors: no symptoms Respiratory: Reports: shortness of breath Cardiovascular: Reports: no symptoms Gastrointestinal/Abdominal: Reports: no symptoms Genitourinary: Reports: no symptoms Musculoskeletal: Reports: swelling Allergies: Coded Allergies: NO KNOWN DRUG ALLERGIES (Verified Allergy, Unknown, 03/06/18) Objective Vital Signs Noted General Appearance: no acute distress, other - alert on CPAP HEENT: normocephalic, mucous membranes moist Respiratory/Chest: crackles/rales Cardiovascular: normal rate, regular rhythm Abdomen: soft, non tender Extremities: other - improving edema b/l LE Laboratory Tests 05/02/18 15:42: Random Vancomycin Level 18.9 05/03/18 04:47: White Blood Count 6.4, Red Blood Count 2.85L, Hemoglobin 8.1L, Hematocrit 26.8L , Mean Corpuscular Volume 94, Mean Corpuscular Hemoglobin 28.4, Mean Corpuscular Hemoglobin Concent 30.3L, Red Cell Distribution Width 18.3H, Platelet Count 143L, Mean Platelet Volume 6.7, Neutrophils (%) (Auto) 84.7H, Lymphocytes (%) (Auto) 3.3L, Monocytes (%) (Auto) 8.9, Eosinophils (%) (Auto) 2.4, Basophils (%) (Auto) 0.8, Prothrombin Time 20.9H, Prothromb Time International Ratio 2.1H, Sodium Level 133L, Potassium Level 5.4H, Chloride Level 95L, Carbon Dioxide Level 27, Anion Gap 11, Blood Urea Nitrogen 64H, Creatinine 8.3H, Estimat Glomerular Filtration Rate 7.9, Glucose Level 105, Calcium Level 9.7 Current Medications Medications (Trade) Dose Ordered Sig/Oliverio Route PRN Reason Start Time Stop Time Status Last Admin Dose Admin Acetaminophen (Tylenol) 650 mg Q6H PRN ORAL Mild Pain/Temp > 100.5 05/02/18 17:41 05/23/18 17:40 Acetaminophen/ Hydrocodone Bitart ([place] 10/325) 1 tab Q6H PRN ORAL For Pain 05/02/18 17:43 05/07/18 17:42 05/03/18 05:33 Allopurinol (Zyloprim) 100 mg DAILY ORAL 05/03/18 09:00 05/24/18 08:59 05/03/18 08:50 Calcium Carbonate (Tums) 500 mg TIDPRN PRN ORAL Nausea & Vomiting/Dyspepsia 05/02/18 17:41 06/01/18 17:40 Clonidine HCl (Catapres Tab) 0.1 mg Q2H PRN ORAL SBP > 170 05/02/18 19:15 06/01/18 13:14 Clonidine HCl (Catapres tab) 0.2 mg BID ORAL 05/02/18 18:00 05/23/18 22:29 05/03/18 08:51 Dextrose (Dextrose 50%) 25 ml Q30M PRN IV Hypoglycemia 05/02/18 18:00 05/23/18 22:59 Dextrose (Dextrose 50%) 50 ml Q30M PRN IV Hypoglycemia 05/02/18 18:00 05/23/18 22:59 Diltiazem HCl (Cardizem) 90 mg EVERY 8 HOURS ORAL 05/02/18 22:00 06/01/18 13:59 05/03/18 05:32 Docusate Sodium (Colace) 100 mg TWICE A DAY ORAL 05/02/18 18:00 05/24/18 08:59 05/03/18 08:50 Epoetin Yung (Procrit (for ESRD on dialysis)) 7,000 units SUN-SUN-SUN SUBQ 05/03/18 21:00 05/29/18 20:59 Finasteride (Proscar) 5 mg DAILY ORAL 05/03/18 09:00 05/24/18 08:59 05/03/18 08:50 Gabapentin (Neurontin) 300 mg DAILY ORAL 05/03/18 09:00 05/24/18 08:59 05/03/18 08:51 Heparin Sodium (Porcine) (Heparin Sod 1000 units/ml 10ml) 500 unit ONCE PRN IV DIALYSIS 05/02/18 17:42 05/03/18 23:59 Insulin Aspart (NovoLOG) BEFORE MEALS AND HS SUBQ 05/02/18 21:00 05/24/18 06:29 Ipratropium [place] (Atrovent) 500 mcg Q4HRT HHN 05/02/18 19:00 05/06/18 14:59 05/03/18 07:06 Meropenem 500 mg/ Sodium Chloride 55 ml @ 110 mls/hr Q24H IVPB 05/02/18 21:00 06/04/18 23:00 05/02/18 21:25 Moxifloxacin HCl (Vigamox) 1 drop Q8HR BOTH EYES 05/02/18 22:00 05/04/18 13:59 05/03/18 05:31 Pantoprazole (Protonix) 40 mg DAILY IVP 05/03/18 09:00 05/24/18 08:59 05/03/18 08:50 Sodium Chloride 1,000 ml @ 500 mls/hr Q2H PRN IVLG sbp<90 during hd 05/02/18 17:45 05/03/18 23:59 Tamsulosin HCl (Flomax) 0.4 mg BEDTIME ORAL 05/02/18 21:00 05/23/18 23:44 05/02/18 21:29 Vancomycin HCl (Vanco rx to dose) 1 ea DAILY PRN MISC Per rx protocol 05/03/18 09:00 06/04/18 23:00 Vitamin B Complex/ Vit C/Folic Acid (Nephrovite) 1 tab DAILY ORAL 05/03/18 09:00 05/26/18 08:59 05/03/18 08:50 Warfarin Sodium (Coumadin per pharmacy) 1 ea DAILY PRN MISC Per rx protocol 05/03/18 09:00 05/29/18 08:14 CXR: 05/04/2018 Lungs: Continued bilateral interstitial opacities. Previously seen right mid to lower lung opacity has markedly improved. Pleural space: Unremarkable. No pneumothorax. Heart: Cardiomegaly. Mediastinum: Unremarkable. Bones/joints: Unremarkable. IMPRESSION: Continued bilateral interstitial opacities/edema. Previously seen right mid to lower lung opacity has markedly improved. Subjective ROS Limited/Unobtainable: No Allergies: Coded Allergies: NO KNOWN DRUG ALLERGIES (Verified Allergy, Unknown, 03/06/18) Objective Last 24 Hour Vital Signs Date Time Temp Pulse Resp B/P (MAP) Pulse Ox O2 Delivery O2 Flow Rate FiO2 05/07/18 15:08 Venturi Mask 05/07/18 09:35 133/76 05/07/18 08:00 97.7 96 20 158/77 (104) 94 05/07/18 07:54 95 22 99 Venturi Mask 10.0 45 05/07/18 07:46 94 24 96 Venturi Mask 10.0 45 05/07/18 07:46 Venturi Mask 10.0 45 05/07/18 07:45 96 Venturi Mask 10.0 45 05/07/18 06:24 92 133/76 05/07/18 05:49 86 14 99 Facial 45 05/07/18 04:07 97.2 97 19 130/69 (89) 95 05/07/18 04:05 97 05/07/18 03:21 94 15 98 Facial 45 05/07/18 01:22 82 14 99 Facial 45 05/07/18 00:00 97.4 92 18 123/70 (87) 96 05/07/18 00:00 92 05/06/18 22:40 92 15 99 Facial 45 05/06/18 22:26 94 18 99 Facial 45 05/06/18 21:11 72 136/79 05/06/18 20:35 97.7 05/06/18 20:00 97.9 89 18 143/77 (99) 99 05/06/18 20:00 Bi-pap Bi-pap 05/06/18 20:00 93 05/06/18 19:23 92 15 100 Facial 45 05/06/18 19:23 100 Bi-pap 45 05/06/18 19:23 Bi-pap 45 05/06/18 17:31 145/79 05/06/18 16:00 91 05/06/18 16:00 97.7 89 14 145/79 (101) 99 05/06/18 16:00 Bi-pap Bi-pap Intake and Output 05/06/18 05/07/18 19:00 07:00 Intake Total 320 ml 470 ml Balance 320 ml 470 ml Intake Oral 320 ml IV Total 110 ml Other 360 ml # Bowel Movements 3 1 Laboratory Tests 05/07/18 06:26: White Blood Count 5.8, Red Blood Count 2.69L, Hemoglobin 7.8L, Hematocrit 25.5L , Mean Corpuscular Volume 95, Mean Corpuscular Hemoglobin 29.1, Mean Corpuscular Hemoglobin Concent 30.7L, Red Cell Distribution Width 19.1H, Platelet Count 170, Mean Platelet Volume 6.7, Neutrophils (%) (Auto) , Lymphocytes (%) (Auto) , Monocytes (%) (Auto) , Eosinophils (%) (Auto) , Basophils (%) (Auto) , Differential Total Cells Counted 100, Neutrophils % ( Manual) 80H, Lymphocytes % (Manual) 4L, Monocytes % (Manual) 9, Eosinophils % ( Manual) 5H, Basophils % (Manual) 2, Band Neutrophils 0, Platelet Estimate Adequate, Platelet Morphology Normal, Hypochromasia 3+, Anisocytosis 2+, Prothrombin Time 25.7H, Prothromb Time International Ratio 2.6H, Sodium Level 134L, Potassium Level 5.4H, Chloride Level 94L, Carbon Dioxide Level 28, Anion Gap 12, Blood Urea Nitrogen 81H, Creatinine 10.4H, Estimat Glomerular Filtration Rate 6.1, Glucose Level 97, Calcium Level 9.4 Current Medications Medications (Trade) Dose Ordered Sig/Oliverio Route PRN Reason Start Time Stop Time Status Last Admin Dose Admin Acetaminophen (Tylenol) 650 mg Q6H PRN ORAL Mild Pain/Temp > 100.5 05/06/18 23:45 05/23/18 17:40 Acetaminophen/ Hydrocodone Bitart ([place] 10/325) 1 tab Q6H PRN ORAL For Pain 05/06/18 23:45 05/07/18 17:42 Allopurinol (Zyloprim) 100 mg DAILY ORAL 05/07/18 09:00 05/24/18 08:59 05/07/18 09:34 Calcium Carbonate (Tums) 500 mg TIDPRN PRN ORAL Nausea & Vomiting/Dyspepsia 05/07/18 17:45 06/01/18 17:40 Clonidine HCl (Catapres Tab) 0.1 mg Q2H PRN ORAL SBP > 170 05/06/18 23:15 06/01/18 13:14 Clonidine HCl (Catapres tab) 0.2 mg BID ORAL 05/07/18 09:00 05/23/18 22:29 05/07/18 09:35 Collagenase (Santyl) 1 applic DAILY TOPIC 05/07/18 09:00 06/04/18 08:59 05/07/18 09:34 Dextrose (Dextrose 50%) 25 ml Q30M PRN IV Hypoglycemia 05/06/18 23:00 05/23/18 22:59 Dextrose (Dextrose 50%) 50 ml Q30M PRN IV Hypoglycemia 05/06/18 23:00 05/23/18 22:59 Diltiazem HCl (Cardizem) 90 mg EVERY 8 HOURS ORAL 05/07/18 06:00 06/01/18 13:59 05/07/18 06:24 Docusate Sodium (Colace) 100 mg TWICE A DAY ORAL 05/07/18 09:00 05/24/18 08:59 05/07/18 09:34 Epoetin Yung (Procrit (for ESRD on dialysis)) 7,000 units SUN-SUN-SUN SUBQ 05/08/18 21:00 05/29/18 20:59 Finasteride (Proscar) 5 mg DAILY ORAL 05/07/18 09:00 05/24/18 08:59 05/07/18 09:34 Gabapentin (Neurontin) 300 mg DAILY ORAL 05/07/18 09:00 05/24/18 08:59 05/07/18 09:34 Heparin Sodium (Porcine) (Heparin Sod 1000 units/ml 10ml) 500 unit ONCE PRN IV DIALYSIS USE 05/06/18 23:00 05/11/18 22:59 Insulin Aspart (NovoLOG) BEFORE MEALS AND HS SUBQ 05/07/18 06:30 05/24/18 06:29 Ipratropium [place] (Atrovent) 500 mcg Q4HRT PRN HHN Shortness of Breath 05/07/18 05:48 05/12/18 05:47 05/07/18 07:44 Meropenem 500 mg/ Sodium Chloride 55 ml @ 110 mls/hr Q24H IVPB 05/07/18 21:00 06/04/18 23:00 Pantoprazole (Protonix) 40 mg ACBREAKFAST ORAL 05/07/18 06:30 06/03/18 06:29 05/07/18 06:23 Sodium Chloride 1,000 ml @ 500 mls/hr Q2H PRN IVLG sbp<90 during hd 05/07/18 14:05 05/07/18 23:59 Tamsulosin HCl (Flomax) 0.4 mg BEDTIME ORAL 05/07/18 21:00 05/23/18 23:44 Vancomycin HCl (Vanco rx to dose) 1 ea DAILY PRN MISC Per rx protocol 05/07/18 09:00 06/04/18 23:00 Vitamin B Complex/ Vit C/Folic Acid (Nephrovite) 1 tab DAILY ORAL 05/07/18 09:00 05/26/18 08:59 05/07/18 09:35 Warfarin Sodium (Coumadin per pharmacy) 1 ea DAILY PRN MISC Per rx protocol 05/07/18 09:00 05/29/18 08:14 Warfarin Sodium (Coumadin) 3 mg COUMADIN ORAL 05/07/18 17:00 05/07/18 18:00 Sanjay Keller MD May 07, 2018 15:33
[2018-05-07 16:00] VITALS: BP 139/79
--- NOTE | 2018-05-07 16:00 | NUR ---
NURSE NOTES: Pt received dialysis today at bedside. Per dialysis nurse Patti POON, output was 4L/removed. Addendum: 05/07/18 at 1829 by ALEX SCHMITZ RN Pt tolerated procedure well, currently resting in bed in stable condition, watching TV.
--- NOTE | 2018-05-07 16:44 | NUR ---
[facility] MAGISTRATE SI: RESP FAILURE, ANEMIA T. 97.2 HR 95 RR 19 B/P 139/50 VM 45% H/H 7.8/25.3 NA 134 K 5.4 IS: MEROPENEM IV VANCO IV CARDIZEM LTACH REFERRAL TELE STATUS
--- NOTE | 2018-05-07 16:46 | NUR ---
DATA VISUALIZATION DEVELOPER NOTES RECEIVED CALL FROM MARLENE FROM [facility] APPROVED. [facility]
[2018-05-07] MEDS ORDERED: Warfarin Sodium 3mg ORAL SCH (17:00)
--- NOTE | 2018-05-07 17:26 | Infectious Diseases Prog Note ---
Assessment/Plan Problems: (1) Acute osteomyelitis of metatarsal bone of left foot Assessment & Plan: left stump wound grew MRSA and Enterobacter cloacae, will continue meropenem and vancomycin treatment for osteomyelitis of the left foot metatarsal bone for 6 weeks. may switch to ertapenem once ready to be discharged to finish his course of treatment . continue local wound care and dressings change as per sheriff's sergeant. vascular recommended no revascularization at this point. will treat with iv antibiotics for 6 weeks for his left metatarsal bone osteomyelitis. will follow patient along with sheriff's sergeant (2) Achilles tendon infection Assessment & Plan: with open wound, already on wide spectrum antibiotics coverage , continue local wound care and dressings change , podiatry is following (3) Diabetic foot infection Assessment & Plan: continue wide spectrum antibiotics , with tight glycemic control. (4) ESRD (end stage renal disease) Assessment & Plan: on HD , renal is following (5) PVD (peripheral vascular disease) Assessment & Plan: had vascular eval , no need for angioplasty of the left leg as per vascular, on anticoagulation (6) Hepatitis B surface antigen positive Assessment & Plan: suspect due to recent vaccination , rule out active HBV infection, await viral load to confirm (7) Acute dyspnea Assessment & Plan: improving, suspect due to fluids over load, continue aggressive HD , monitor ABG, and CXR , continue BIPAP, pulmonary is following (8) Acute bacterial conjunctivitis Assessment & Plan: S/P moxifloxacin eye drops for 5 days Subjective Constitutional: Reports: fatigue HEENT: Reports: congestion Respiratory: Reports: shortness of breath, dry cough Breasts: Reports: no symptoms Cardiovascular: Reports: no symptoms Gastrointestinal/Abdominal: Reports: no symptoms Genitourinary: Reports: no symptoms Neurologic: Reports: no symptoms Psychiatric: Reports: no symptoms Skin: Reports: no symptoms Endocrine: Reports: no symptoms Hematologic: Reports: no symptoms Musculoskeletal: Reports: no symptoms Allergies: Coded Allergies: NO KNOWN DRUG ALLERGIES (Verified Allergy, Unknown, 03/06/18) Subjective he was transferred out of ICU , now off BIPAP, feels better less congested and not short of breath , with less pain and swelling in his left foot, no productive cough Objective Vital Signs Last 24 Hour Vital Signs Date Time Temp Pulse Resp B/P (MAP) Pulse Ox O2 Delivery O2 Flow Rate FiO2 05/07/18 16:00 97.7 92 20 139/79 (99) 98 05/07/18 16:00 96 05/07/18 15:08 Venturi Mask 05/07/18 12:00 90 05/07/18 12:00 97.2 95 19 139/50 (79) 97 05/07/18 09:35 133/76 05/07/18 09:00 Bi-pap Bi-pap 05/07/18 08:00 95 05/07/18 08:00 97.7 96 20 158/77 (104) 94 05/07/18 07:54 95 22 99 Venturi Mask 10.0 45 05/07/18 07:46 94 24 96 Venturi Mask 10.0 45 05/07/18 07:46 Venturi Mask 10.0 45 05/07/18 07:45 96 Venturi Mask 10.0 45 05/07/18 06:24 92 133/76 05/07/18 05:49 86 14 99 Facial 45 05/07/18 04:07 97.2 97 19 130/69 (89) 95 05/07/18 04:05 97 05/07/18 03:21 94 15 98 Facial 45 05/07/18 01:22 82 14 99 Facial 45 05/07/18 00:00 97.4 92 18 123/70 (87) 96 05/07/18 00:00 92 05/06/18 22:40 92 15 99 Facial 45 05/06/18 22:26 94 18 99 Facial 45 05/06/18 21:11 72 136/79 05/06/18 20:35 97.7 05/06/18 20:00 97.9 89 18 143/77 (99) 99 05/06/18 20:00 Bi-pap Bi-pap 05/06/18 20:00 93 05/06/18 19:23 92 15 100 Facial 45 05/06/18 19:23 100 Bi-pap 45 05/06/18 19:23 Bi-pap 45 05/06/18 17:31 145/79 Height (Feet): 5 Height (Inches): 7.00 Weight (Pounds): 293 General Appearance: WD/WN, no acute distress HEENT: normocephalic, atraumatic, anicteric, mucous membranes moist, PERRL Respiratory/Chest: chest wall non-tender, normal breath sounds, no respiratory distress, no accessory muscle use, decreased breath sounds, crackles/rales Cardiovascular: normal peripheral pulses, normal rate, regular rhythm, no gallop/murmur, no JVD Abdomen: normal bowel sounds, soft, non tender, no organomegaly, non distended , no mass, no scars Extremities: no cyanosis, no clubbing Skin: no rash, no lesions, ulcers Neurologic/Psychiatric: 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 normal, alert, oriented x 3, responsive Lymphatic: no neck adenopathy, no groin adenopathy Musculoskeletal: normal muscle bulk, no effusion Laboratory Tests Test 05/07/18 06:26 05/07/18 15:00 White Blood Count 5.8 K/UL (4.8-10.8) Red Blood Count 2.69 M/UL (4.70-6.10) L Hemoglobin 7.8 G/DL (14.2-18.0) L Hematocrit 25.5 % (42.0-52.0) L Mean Corpuscular Volume 95 FL (80-99) Mean Corpuscular Hemoglobin 29.1 PG (27.0-31.0) Mean Corpuscular Hemoglobin Concent 30.7 G/DL (32.0-36.0) L Red Cell Distribution Width 19.1 % (11.6-14.8) H Platelet Count 170 K/UL (150-450) Mean Platelet Volume 6.7 FL (6.5-10.1) Neutrophils (%) (Auto) % (45.0-75.0) Lymphocytes (%) (Auto) % (20.0-45.0) Monocytes (%) (Auto) % (1.0-10.0) Eosinophils (%) (Auto) % (0.0-3.0) Basophils (%) (Auto) % (0.0-2.0) Differential Total Cells Counted 100 Neutrophils % (Manual) 80 % (45-75) H Lymphocytes % (Manual) 4 % (20-45) L Monocytes % (Manual) 9 % (1-10) Eosinophils % (Manual) 5 % (0-3) H Basophils % (Manual) 2 % (0-2) Band Neutrophils 0 % (0-8) Platelet Estimate Adequate Platelet Morphology Normal Hypochromasia 3+ Anisocytosis 2+ Prothrombin Time 25.7 SEC (9.30-11.50) H Prothromb Time International Ratio 2.6 (0.9-1.1) H Sodium Level 134 MMOL/L (136-145) L Potassium Level 5.4 MMOL/L (3.5-5.1) H Chloride Level 94 MMOL/L (98-107) L Carbon Dioxide Level 28 MMOL/L (21-32) Anion Gap 12 mmol/L (5-15) Blood Urea Nitrogen 81 mg/dL (7-18) H Creatinine 10.4 MG/DL (0.55-1.30) H Estimat Glomerular Filtration Rate 6.1 mL/min (>60) Glucose Level 97 MG/DL (74-106) Calcium Level 9.4 MG/DL (8.5-10.1) Random Vancomycin Level 16.7 ug/mL Current Medications Medications (Trade) Dose Ordered Sig/Oliverio Route PRN Reason Start Time Stop Time Status Last Admin Dose Admin Acetaminophen (Tylenol) 650 mg Q6H PRN ORAL Mild Pain/Temp > 100.5 05/06/18 23:45 05/23/18 17:40 Acetaminophen/ Hydrocodone Bitart ([place] 10/325) 1 tab Q6H PRN ORAL For Pain 05/06/18 23:45 05/07/18 17:42 Allopurinol (Zyloprim) 100 mg DAILY ORAL 05/07/18 09:00 05/24/18 08:59 05/07/18 09:34 Calcium Carbonate (Tums) 500 mg TIDPRN PRN ORAL Nausea & Vomiting/Dyspepsia 05/07/18 17:45 06/01/18 17:40 Clonidine HCl (Catapres Tab) 0.1 mg Q2H PRN ORAL SBP > 170 05/06/18 23:15 06/01/18 13:14 Clonidine HCl (Catapres tab) 0.2 mg BID ORAL 05/07/18 09:00 05/23/18 22:29 05/07/18 09:35 Collagenase (Santyl) 1 applic DAILY TOPIC 05/07/18 09:00 06/04/18 08:59 05/07/18 09:34 Dextrose (Dextrose 50%) 25 ml Q30M PRN IV Hypoglycemia 05/06/18 23:00 05/23/18 22:59 Dextrose (Dextrose 50%) 50 ml Q30M PRN IV Hypoglycemia 05/06/18 23:00 05/23/18 22:59 Diltiazem HCl (Cardizem) 90 mg EVERY 8 HOURS ORAL 05/07/18 06:00 06/01/18 13:59 05/07/18 06:24 Docusate Sodium (Colace) 100 mg TWICE A DAY ORAL 05/07/18 09:00 05/24/18 08:59 05/07/18 09:34 Epoetin Yung (Procrit (for ESRD on dialysis)) 7,000 units SUN-SUN-SUN SUBQ 05/08/18 21:00 05/29/18 20:59 Finasteride (Proscar) 5 mg DAILY ORAL 05/07/18 09:00 05/24/18 08:59 05/07/18 09:34 Gabapentin (Neurontin) 300 mg DAILY ORAL 05/07/18 09:00 05/24/18 08:59 05/07/18 09:34 Heparin Sodium (Porcine) (Heparin Sod 1000 units/ml 10ml) 500 unit ONCE PRN IV DIALYSIS USE 05/06/18 23:00 05/11/18 22:59 Insulin Aspart (NovoLOG) BEFORE MEALS AND HS SUBQ 05/07/18 06:30 05/24/18 06:29 Ipratropium [place] (Atrovent) 500 mcg Q4HRT PRN HHN Shortness of Breath 05/07/18 05:48 05/12/18 05:47 05/07/18 07:44 Meropenem 500 mg/ Sodium Chloride 55 ml @ 110 mls/hr Q24H IVPB 05/07/18 21:00 06/04/18 23:00 Pantoprazole (Protonix) 40 mg ACBREAKFAST ORAL 05/07/18 06:30 06/03/18 06:29 05/07/18 06:23 Sodium Chloride 1,000 ml @ 500 mls/hr Q2H PRN IVLG sbp<90 during hd 05/07/18 14:05 05/07/18 23:59 Tamsulosin HCl (Flomax) 0.4 mg BEDTIME ORAL 05/07/18 21:00 05/23/18 23:44 Vancomycin HCl (Vanco rx to dose) 1 ea DAILY PRN MISC Per rx protocol 05/07/18 09:00 06/04/18 23:00 Vancomycin/Sodium Chloride 250 ml @ 166.667 mls/hr ONCE IVPB 05/07/18 21:00 05/07/18 23:00 Vitamin B Complex/ Vit C/Folic Acid (Nephrovite) 1 tab DAILY ORAL 05/07/18 09:00 05/26/18 08:59 05/07/18 09:35 Warfarin Sodium (Coumadin per pharmacy) 1 ea DAILY PRN MISC Per rx protocol 05/07/18 09:00 05/29/18 08:14 Warfarin Sodium (Coumadin) 3 mg COUMADIN ORAL 05/07/18 17:00 05/07/18 18:00 Jaime Casey M.D. May 07, 2018 17:25
[2018-05-07] MEDS: cloNIDine 0.2mg Tab ORAL SCH (17:33)
[2018-05-07] MEDS ORDERED: Tums 500mg ORAL PRN (17:45)
--- NOTE | 2018-05-07 18:27 | NUR ---
RESPIRATORY NOTE: Placed pt on CPAP per pt request with the settings of CPAP 10 and FiO2 of 45%. pt is awake and alert and on facial mask and its secure and intact. no skin breakdown noted. pt tolerating so far. will continue to monitor pt. RN notfied. Addendum: 05/07/18 at 1943 by PATRIZIA ROMERO, RT RT bipap is plugged into red outlet. alarms are on and audible.
--- NOTE | 2018-05-07 18:28 | General Progress Note ---
Assessment/Plan Assessment/Plan Assessment - Heme (+) stools - Anemia and thrombocytopenia - DVT - on anticoagulation - Hep B S Ag (+) - DM - PVD - CHU - PVD / amputation - Poor Px Recommendations - Patient appropriately has declined GI w/u - Will follow conservatively - Monitor CBC while on anticoagulation - Replace Fe IV - PPI - if H&H declines on anticoagulation, may need to reconsider IVC filter - Check HBV quantitative PCR - d/c planning per PMD Subjective Allergies: Coded Allergies: NO KNOWN DRUG ALLERGIES (Verified Allergy, Unknown, 03/06/18) Subjective c/o dry mouth wants to try gum getting HD at time of visit Objective Last 24 Hour Vital Signs Date Time Temp Pulse Resp B/P (MAP) Pulse Ox O2 Delivery O2 Flow Rate FiO2 05/07/18 17:33 139/79 05/07/18 16:00 97.7 92 20 139/79 (99) 98 05/07/18 16:00 96 05/07/18 15:08 Venturi Mask 05/07/18 12:00 90 05/07/18 12:00 97.2 95 19 139/50 (79) 97 05/07/18 09:35 133/76 05/07/18 09:00 Bi-pap Bi-pap 05/07/18 08:00 95 05/07/18 08:00 97.7 96 20 158/77 (104) 94 05/07/18 07:54 95 22 99 Venturi Mask 10.0 45 05/07/18 07:46 94 24 96 Venturi Mask 10.0 45 05/07/18 07:46 Venturi Mask 10.0 45 05/07/18 07:45 96 Venturi Mask 10.0 45 05/07/18 06:24 92 133/76 05/07/18 05:49 86 14 99 Facial 45 05/07/18 04:07 97.2 97 19 130/69 (89) 95 05/07/18 04:05 97 05/07/18 03:21 94 15 98 Facial 45 05/07/18 01:22 82 14 99 Facial 45 05/07/18 00:00 97.4 92 18 123/70 (87) 96 05/07/18 00:00 92 05/06/18 22:40 92 15 99 Facial 45 05/06/18 22:26 94 18 99 Facial 45 05/06/18 21:11 72 136/79 05/06/18 20:35 97.7 05/06/18 20:00 97.9 89 18 143/77 (99) 99 05/06/18 20:00 Bi-pap Bi-pap 05/06/18 20:00 93 05/06/18 19:23 92 15 100 Facial 45 05/06/18 19:23 100 Bi-pap 45 05/06/18 19:23 Bi-pap 45 Intake and Output 05/06/18 05/07/18 19:00 07:00 Intake Total 320 ml 470 ml Balance 320 ml 470 ml Intake Oral 320 ml IV Total 110 ml Other 360 ml # Bowel Movements 3 1 Laboratory Tests 05/07/18 06:26: White Blood Count 5.8, Red Blood Count 2.69L, Hemoglobin 7.8L, Hematocrit 25.5L , Mean Corpuscular Volume 95, Mean Corpuscular Hemoglobin 29.1, Mean Corpuscular Hemoglobin Concent 30.7L, Red Cell Distribution Width 19.1H, Platelet Count 170, Mean Platelet Volume 6.7, Neutrophils (%) (Auto) , Lymphocytes (%) (Auto) , Monocytes (%) (Auto) , Eosinophils (%) (Auto) , Basophils (%) (Auto) , Differential Total Cells Counted 100, Neutrophils % ( Manual) 80H, Lymphocytes % (Manual) 4L, Monocytes % (Manual) 9, Eosinophils % ( Manual) 5H, Basophils % (Manual) 2, Band Neutrophils 0, Platelet Estimate Adequate, Platelet Morphology Normal, Hypochromasia 3+, Anisocytosis 2+, Prothrombin Time 25.7H, Prothromb Time International Ratio 2.6H, Sodium Level 134L, Potassium Level 5.4H, Chloride Level 94L, Carbon Dioxide Level 28, Anion Gap 12, Blood Urea Nitrogen 81H, Creatinine 10.4H, Estimat Glomerular Filtration Rate 6.1, Glucose Level 97, Calcium Level 9.4 05/07/18 15:00: Random Vancomycin Level 16.7 Height (Feet): 5 Height (Inches): 7.00 Weight (Pounds): 293 Objective Obese AA man NCAT coarse BS, power RR obese abd nonfocal (+) UE amputations Bee Krueger MD May 07, 2018 18:28
--- NOTE | 2018-05-07 19:15 | NUR ---
NURSE NOTES: Received report from Padmaja Rolle RN. Pt is resting in the bed , HOB in semi rich's position. He is receiving Bi-pap per RT, tolerating well. Safety measures are applied with bed alarm on, bed in lowest position with side rails up x2, and breaks are engaged. Call light and side table are w/in reach. Endorsed that Dr. Brian Olson is aware Hgb 7.8, no new order for it. Pt is waiting for bed ready at [facility] to be discharged. Will follow plans of care.
--- NOTE | 2018-05-07 19:42 | NUR ---
HAND-OFF: Report given to Kirti POON. Pt is resting in bed in stable condition. Endorsed plan of care. Addendum: 05/07/18 at 1943 by ALEX SCHMITZ RN Pt refused dressing change during my shift, endorsed to Kirti POON.
[2018-05-07 20:00] VITALS: BP 150/85
[2018-05-07] MEDS ORDERED: Vancomycin 750mg/NS 250ml IVPB SCH (21:00)
--- NOTE | 2018-05-07 21:53 | General Progress Note ---
Assessment/Plan Assessment/Plan # DVT of the deep veins superficial and politeal of the left leg, thrombocytopenia likely due to hep B chronic status --> VQ scan shows low probability of PE --> remains with anemia and low platelets therefore contraindication for anticoagulation --> will hold off on IVC filter --> continue coumadin inr goal 2-3 --> Cards and pulm recs appreciated as well as renal, vasc --> only if h/h drops, reconsider ivc filter, but currently doing well on coumadin # Thrombocytopenia -- plt goal >20k, transfuse as required, hepatitis B chronic infection --> plt trend in the 66k-->63k-->58k-->60k-->100s range --> hep B noted and if no change in plt, consider anticoagulation --> coumadin started # Anemia of iron deficiency --> started on iron and epogen (AGREE WITH RENAL) --> anemia panel has been reviewed --> hgb goal >7, transfuse as needed --> peripheral smear to be reviewed # Chronic hepatitis B -- appears to be chronic though need to confirm --> hep b surface antigen is postiive which means has chronic hepatitis B --> hep B surface antibody negative which means does not have immunity # Acute CHF exacerbation/pulmonary edema --> as per pulm # COPD w/o obvious exacerbation # CHU # ESRD on HD --> hd as per renal # Hx multiple amputations # Diabetic foot infection --> as per ID Time of note does not necessarily reflect time of encounter Greatly appreciate consultation! Subjective Constitutional: Denies: no symptoms, chills, diaphoresis, fever, malaise, weakness, other HEENT: Denies: no symptoms, eye pain, blurred vision, tearing, double vision, ear pain, ear discharge, nose pain, nose congestion, throat pain, throat swelling, mouth pain, mouth swelling, other Cardiovascular: Denies: no symptoms, chest pain, edema, irregular heart rate, lightheadedness, palpitations, syncope, other Respiratory: Denies: no symptoms, cough, orthopnea, shortness of breath, SOB with excertion, SOB at rest, sputum, stridor, wheezing, other Gastrointestinal/Abdominal: Denies: no symptoms, abdomen distended, abdominal pain, black stools, tarry stools, blood in stool, constipated, diarrhea, difficulty swallowing, nausea, poor appetite, poor fluid intake, rectal bleeding , vomiting, other Genitourinary: Denies: no symptoms, burning, discharge, frequency, flank pain, hematuria, incontinence, pain, urgency, other Neurologic/Psychiatric: Denies: no symptoms, anxiety, depressed, emotional problems, headache, numbness, paresthesia, pre-existing deficit, seizure, tingling, tremors, weakness, other Endocrine: Denies: no symptoms, excessive sweating, flushing, intolerance to cold, intolerance to heat, increased hunger, increased thirst, increased urine, unexplained weight gain, unexplained weight loss, other Hematologic/Lymphatic: Denies: no symptoms, anemia, easy bleeding, easy bruising, other Allergies: Coded Allergies: NO KNOWN DRUG ALLERGIES (Verified Allergy, Unknown, 03/06/18) Subjective 04/26: no events, potential plan for ivc f on sunday.12: no further ivc filter planned, started on coumadin inr goal 2-3 04/28: on iron and epogen dw Dr. Harper, continue as per his recs 04/29: awake and comfortable, HD today, On BIPAP and Oxygen. No new events. 04/30: Pt is seen by bedside, Platelets rising, 101 today. Coumadin started. Sleeping with BiPAP, HD tomorrow. 05/01: Pt was transferred to ICU for SVT on BIPAP, complains of less pain and swelling in his left foot, getting HD. 05/02: remains inthe icu, nsr at this time, tolerating coumadin, h/h relatively stable, plt better 05/03: has hepatitis Bs antigen and the ab is negative which means he doesn't have immunity, on coumadin, iron, procrit 05/07: Pt is seen by bedside, awake and alert, getting HD , no events Objective Last 24 Hour Vital Signs Date Time Temp Pulse Resp B/P (MAP) Pulse Ox O2 Delivery O2 Flow Rate FiO2 05/07/18 21:06 100 13 100 Facial 45 05/07/18 18:27 104 20 96 Facial 45 05/07/18 18:27 96 Bi-pap 45 05/07/18 18:27 Bi-pap 45 05/07/18 17:33 139/79 05/07/18 16:00 97.7 92 20 139/79 (99) 98 05/07/18 16:00 96 05/07/18 15:08 Venturi Mask 05/07/18 12:00 90 05/07/18 12:00 97.2 95 19 139/50 (79) 97 05/07/18 09:35 133/76 05/07/18 09:00 Bi-pap Bi-pap 05/07/18 08:00 95 05/07/18 08:00 97.7 96 20 158/77 (104) 94 05/07/18 07:54 95 22 99 Venturi Mask 10.0 45 05/07/18 07:46 94 24 96 Venturi Mask 10.0 45 05/07/18 07:46 Venturi Mask 10.0 45 05/07/18 07:45 96 Venturi Mask 10.0 45 05/07/18 06:24 92 133/76 05/07/18 05:49 86 14 99 Facial 45 05/07/18 04:07 97.2 97 19 130/69 (89) 95 05/07/18 04:05 97 05/07/18 03:21 94 15 98 Facial 45 05/07/18 01:22 82 14 99 Facial 45 05/07/18 00:00 97.4 92 18 123/70 (87) 96 05/07/18 00:00 92 05/06/18 22:40 92 15 99 Facial 45 05/06/18 22:26 94 18 99 Facial 45 Intake and Output 05/06/18 05/07/18 19:00 07:00 Intake Total 320 ml 470 ml Balance 320 ml 470 ml Intake Oral 320 ml IV Total 110 ml Other 360 ml # Bowel Movements 3 1 Laboratory Tests 05/07/18 06:26: White Blood Count 5.8, Red Blood Count 2.69L, Hemoglobin 7.8L, Hematocrit 25.5L , Mean Corpuscular Volume 95, Mean Corpuscular Hemoglobin 29.1, Mean Corpuscular Hemoglobin Concent 30.7L, Red Cell Distribution Width 19.1H, Platelet Count 170, Mean Platelet Volume 6.7, Neutrophils (%) (Auto) , Lymphocytes (%) (Auto) , Monocytes (%) (Auto) , Eosinophils (%) (Auto) , Basophils (%) (Auto) , Differential Total Cells Counted 100, Neutrophils % ( Manual) 80H, Lymphocytes % (Manual) 4L, Monocytes % (Manual) 9, Eosinophils % ( Manual) 5H, Basophils % (Manual) 2, Band Neutrophils 0, Platelet Estimate Adequate, Platelet Morphology Normal, Hypochromasia 3+, Anisocytosis 2+, Prothrombin Time 25.7H, Prothromb Time International Ratio 2.6H, Sodium Level 134L, Potassium Level 5.4H, Chloride Level 94L, Carbon Dioxide Level 28, Anion Gap 12, Blood Urea Nitrogen 81H, Creatinine 10.4H, Estimat Glomerular Filtration Rate 6.1, Glucose Level 97, Calcium Level 9.4 05/07/18 15:00: Random Vancomycin Level 16.7 Height (Feet): 5 Height (Inches): 7.00 Weight (Pounds): 293 Objective Gen: NAD HEAD AND NECK: No JVD. LUNGS: Decreased breath sounds. CARDIOVASCULAR: Regular S1 and S2 with no gallop. ABDOMEN: Soft. EXTREMITIES: Status post multiple amputations, 2+ lower extremity edema. L thigh shunt Juve Soto MD May 07, 2018 21:52
--- NOTE | 2018-05-07 22:08 | General Progress Note ---
Assessment/Plan Assessment/Plan cellulitis osteo myosisits renal failure on dialysis ho chf ho ermias thrombocytopenia dvt vq negative HTNsvt abx per ID podiatry fup wound care arterial study noted dw Dr Raygoza, vascular eval from Dr Olvieira apprecated DVT dw Dr Platt, Dr Leroy Raygoza, stheparin ggt, monitor anemia and platelet closely, heme evaluation appreciated patient with chronic low platelets from ho hepatitis per heme will hold off on ivc filter coumadin per pharmacy doing well fe deficiency anemia, started on iron and epo GI eval appreciated, patient refuses GI workup dialysis dependent pulmonary fup cards fup echo noted on cardizem drip converted to sinus rhythm monior platelets hgb dvt and ulcer prohylaxis dw Dr Gallito Platt and Dr Soto as well as Dr Fink who have cleared patient for dc, per dw CM patient will benefit from LTAC awaiting placement Subjective Allergies: Coded Allergies: NO KNOWN DRUG ALLERGIES (Verified Allergy, Unknown, 03/06/18) Subjective above noted feels better breathing better in sinus rhythm Objective Last 24 Hour Vital Signs Date Time Temp Pulse Resp B/P (MAP) Pulse Ox O2 Delivery O2 Flow Rate FiO2 05/07/18 21:06 100 13 100 Facial 45 05/07/18 20:00 97.9 102 20 150/85 (106) 96 05/07/18 18:27 104 20 96 Facial 45 05/07/18 18:27 96 Bi-pap 45 05/07/18 18:27 Bi-pap 45 05/07/18 17:33 139/79 05/07/18 16:00 97.7 92 20 139/79 (99) 98 05/07/18 16:00 96 05/07/18 15:08 Venturi Mask 05/07/18 12:00 90 05/07/18 12:00 97.2 95 19 139/50 (79) 97 05/07/18 09:35 133/76 05/07/18 09:00 Bi-pap Bi-pap 05/07/18 08:00 95 05/07/18 08:00 97.7 96 20 158/77 (104) 94 05/07/18 07:54 95 22 99 Venturi Mask 10.0 45 05/07/18 07:46 94 24 96 Venturi Mask 10.0 45 05/07/18 07:46 Venturi Mask 10.0 45 05/07/18 07:45 96 Venturi Mask 10.0 45 05/07/18 06:24 92 133/76 05/07/18 05:49 86 14 99 Facial 45 05/07/18 04:07 97.2 97 19 130/69 (89) 95 05/07/18 04:05 97 05/07/18 03:21 94 15 98 Facial 45 05/07/18 01:22 82 14 99 Facial 45 05/07/18 00:00 97.4 92 18 123/70 (87) 96 05/07/18 00:00 92 05/06/18 22:40 92 15 99 Facial 45 05/06/18 22:26 94 18 99 Facial 45 Intake and Output 05/06/18 05/07/18 19:00 07:00 Intake Total 320 ml 470 ml Balance 320 ml 470 ml Intake Oral 320 ml IV Total 110 ml Other 360 ml # Bowel Movements 3 1 Laboratory Tests 05/07/18 06:26: White Blood Count 5.8, Red Blood Count 2.69L, Hemoglobin 7.8L, Hematocrit 25.5L , Mean Corpuscular Volume 95, Mean Corpuscular Hemoglobin 29.1, Mean Corpuscular Hemoglobin Concent 30.7L, Red Cell Distribution Width 19.1H, Platelet Count 170, Mean Platelet Volume 6.7, Neutrophils (%) (Auto) , Lymphocytes (%) (Auto) , Monocytes (%) (Auto) , Eosinophils (%) (Auto) , Basophils (%) (Auto) , Differential Total Cells Counted 100, Neutrophils % ( Manual) 80H, Lymphocytes % (Manual) 4L, Monocytes % (Manual) 9, Eosinophils % ( Manual) 5H, Basophils % (Manual) 2, Band Neutrophils 0, Platelet Estimate Adequate, Platelet Morphology Normal, Hypochromasia 3+, Anisocytosis 2+, Prothrombin Time 25.7H, Prothromb Time International Ratio 2.6H, Sodium Level 134L, Potassium Level 5.4H, Chloride Level 94L, Carbon Dioxide Level 28, Anion Gap 12, Blood Urea Nitrogen 81H, Creatinine 10.4H, Estimat Glomerular Filtration Rate 6.1, Glucose Level 97, Calcium Level 9.4 05/07/18 15:00: Random Vancomycin Level 16.7 Height (Feet): 5 Height (Inches): 7.00 Weight (Pounds): 293 Neck: supple Cardiovascular: normal rate Respiratory/Chest: decreased breath sounds Abdomen: soft Objective left lower extremity dressing intact clean no bleeding Moe Sewell MD May 07, 2018 22:08
[2018-05-07] MEDS: Meropenem 500 MG in NS 55 ML IVPB SCH (22:22)
[2018-05-07] MEDS: Tamsulosin 0.4mg cap ORAL SCH (22:23)
[2018-05-08] VITALS: BP 148/84
--- NOTE | 2018-05-08 01:15 | NUR ---
RESPIRATORY NOTE: Reassessed pt is now on Venturi mask of FiO2 50%. O2 saturation is 95%, HR 104. no s/s of respiratory distress noted. CLEVE Cotto aware. will continue to monitor pt.
--- NOTE | 2018-05-08 02:05 | NUR ---
NURSE NOTES: Pt is sitting in the edge of the bed and requested to use phone. Staff helped him to use the phone. Venturi mask is applied. Pt was instructed to call to be positioned in the bed. Pt verbalized the understanding. Will continue to monitor.
--- NOTE | 2018-05-08 02:32 | NUR ---
RESPIRATORY NOTE: pt placed CPAP per pt request. pt is awake and alert. O2 saturation 94%, HR 98. will continue to monitor pt. CLEVE cormier.
[2018-05-08 04:00] VITALS: BP 152/90
[2018-05-08] MEDS: Ipratropium 0.02% Inh Soln 2.5ml UD HHN PRN ×5 (04:40→23:26)
--- NOTE | 2018-05-08 04:41 | NUR ---
RESPIRATORY NOTE: Pt request to be taken off bipap and placed on Venturi mask FiO2 50%. O2 saturation 95%. no s/s of respiratory distress noted. RN aware.
[2018-05-08] MEDS: dilTIAZem HCl 90mg tab ORAL SCH ×3 (05:45→21:17)
--- NOTE | 2018-05-08 05:51 | NUR ---
NURSE NOTES: 7 beats of V-tach in 3 sec noted in the monitor at 0418 and went back to SR 94 bpm. Pt is asymptomatic. 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
[2018-05-08] MEDS: NovoLOG Insulin Flexpen SUBQ SCH ×4 (06:30→20:26)
--- NOTE | 2018-05-08 07:25 | NUR ---
HAND-OFF: Report given to John Paul Wills RN. Left message to Dr. Huggins for 7 beat of VT in 3 sec. Awaiting call back. Endorsed plans of care. Stable condition.
[2018-05-08 07:34] LABS: INR 2.9 (0.9-1.1)
--- NOTE | 2018-05-08 07:40 | NUR ---
NURSE NOTES: Received bedside report from Kirti Mckinley RN. Pt. in bed, awake, a/o x 4. No sign of distress. On venturi mask. Denies pain at present. IV line at left wrist #20g and right upper arm #20g in placed both SL. AV shunt at left thigh with dry dressing in placed. Noted left foot wrapped with dry dressing. Bed in low position, locked. Call light within reach. Will cont. to monitor.
[2018-05-08 08:00] VITALS: BP 154/105
[2018-05-08] MEDS: Allopurinol 100mg Tab ORAL SCH (09:45)
[2018-05-08] MEDS: Nephrovite tab (Rena-Vite) ORAL SCH (09:45)
[2018-05-08] MEDS: Docusate 100mg cap ORAL SCH ×2 (09:45→18:10)
[2018-05-08] MEDS: cloNIDine 0.2mg Tab ORAL SCH ×2 (09:46→18:10)
--- NOTE | 2018-05-08 11:14 | Diagnostic Imaging Report ---
APPROVED REPORT CPT Code: 06158 Present Symptoms Comments: Hx of AV-Fistual (Left thigh) Swelling and Pain Technically difficult study due to pain RIGHT LEG: Venous imaging reveals a patent deep venous system. There is no evidence of thrombus within the femoral, popliteal or tibial segments. The greater saphenous vein is also within normal limits. Doppler indicates normal spontaneous flow within these segments. LEFT LEG: Venous imaging reveals acute thrombus in the superficial femoral and popliteal veins. Remainder of the deep venous system within normal limits. No evidence of thrombus within the common femoral vein. The calf veins not well visualized. Greater saphenous vein within normal limits. CLEVE Parker was notified of abnormal results at 1425 hours.
[2018-05-08 12:00] VITALS: BP 159/92
--- NOTE | 2018-05-08 12:14 | Cardiac Electrophysiology PN ---
Assessment/Plan Status Narrative Normal left ventricular chamber size, systolic function and wall motion. Left ventricular ejection fraction estimated to be 60-65 %. Moderate left ventricular hypertrophy by 2-D. Small posterior pericardial effusion. Moderate left atrial enlargement. Mild right atrial enlargement. Right ventricular chamber size is within normal limits. Moderate aortic valve calcification with decreased cusp excursion c/w aortic stenosis. Moderately thickened mitral valve leaflets with normal excursion. Mitral annulus and aortic root calcification. Pulmonic valve not well visualized. Normal tricuspid valve structure. IVC dilated at 2.4 cm with slight physiologic collapse suggestive of in Assessment/Plan 1. Congestive heart failure. BNP > 35,000.On hemodialysis 2. Troponin leak due to renal failure. No chest pain. Echocardiogram EF 65%. 3. Hypertension. On hemodialysis, clonidine 0.2 mg bid and Cardizem 90 po q 8 hr 4. Sustained SVT at rate 170. Stable on Cardizem 90 po q 8 hr 5. Nonsustained VT. No syncope, EF Normal Check Mg and Phos 6. Peripheral vascular disease left metatarsal and finger amputations 7. Respiratory failure/ COPD. On BIPAP 8. Acute left leg DVT on heparin drip and Coumadin per Rx. INR 2.6 9. Lower extremity cellulitis, on iv Abx per ID 10. Morbid obesity. LATIA RN Subjective Subjective In SR . On CPAP. Had 5 beats of nonsustained VT Objective Last 24 Hour Vital Signs Date Time Temp Pulse Resp B/P (MAP) Pulse Ox O2 Delivery O2 Flow Rate FiO2 05/08/18 11:46 92 14 98 Facial 45 05/08/18 09:46 154/105 05/08/18 09:09 100 22 98 Venturi Mask 12.0 50 05/08/18 09:00 Bi-pap Bi-pap 05/08/18 08:53 97 22 97 Venturi Mask 12.0 50 05/08/18 08:00 98.4 81 20 154/105 (121) 100 05/08/18 07:50 99 05/08/18 07:31 97 19 98 Facial 45 05/08/18 07:30 Bi-pap 45 05/08/18 07:30 98 Bi-pap 45 05/08/18 05:45 99 152/90 05/08/18 04:51 99 22 98 Venturi Mask 12.0 50 05/08/18 04:41 98 22 95 Venturi Mask 12.0 50 05/08/18 04:18 110 05/08/18 04:00 97.0 94 18 152/90 (110) 99 05/08/18 03:20 95 05/08/18 02:32 98 20 94 Facial 45 05/08/18 01:14 95 12.0 50 05/08/18 00:00 98.2 98 18 148/84 (105) 100 05/07/18 23:19 99 05/07/18 23:05 98 14 98 Bi-pap 45 05/07/18 22:55 101 13 98 Facial 45 05/07/18 22:55 101 14 98 Bi-pap 45 05/07/18 22:23 102 150/85 05/07/18 21:06 100 13 100 Facial 45 05/07/18 21:00 Bi-pap Bi-pap 05/07/18 20:00 97.9 102 20 150/85 (106) 96 05/07/18 19:37 103 05/07/18 18:27 104 20 96 Facial 45 05/07/18 18:27 96 Bi-pap 45 05/07/18 18:27 Bi-pap 45 05/07/18 17:33 139/79 05/07/18 16:00 97.7 92 20 139/79 (99) 98 05/07/18 16:00 96 05/07/18 15:08 Venturi Mask Intake and Output 05/07/18 05/08/18 19:00 07:00 Intake Total 400 ml Output Total 4000 ml Balance -4000 ml 400 ml Intake Oral 400 ml Hemodialysis UF 4000 ml # Bowel Movements 1 1 Laboratory Tests Test 05/07/18 15:00 05/08/18 04:55 Random Vancomycin Level 16.7 ug/mL Prothrombin Time 29.0 SEC (9.30-11.50) H Prothromb Time International Ratio 2.9 (0.9-1.1) H Objective HEAD AND NECK: Positive JVD. LUNGS: Coarse Rhonchi CARDIOVASCULAR: Regular S1 and S2 with no gallop. ABDOMEN: Soft.Obese EXTREMITIES: Status post right hand and Left foot amputation with 2 plus edema Shelton Perdomo MD May 08, 2018 12:14
--- NOTE | 2018-05-08 14:04 | NUR ---
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 98.0 HR 99 RR 21 B/P 159/92 VM 45% IS: MEROPENEM IV FLOMAX PO PROTONIX HEPARIN SUBC DCP LTACH TELE STATUS
--- NOTE | 2018-05-08 14:12 | NUR ---
RD ASSESSMENT & RECOMMENDATIONS SEE CARE ACTIVITY FOR COMPLETE ASSESSMENT DAILY ESTIMATED NEEDS: Needs based on DM, wound, HD,Obesity/ 77kg abw 23-28 kcals/kg 1009-1719 total kcals 1.25-1.8 g protein/kg 96-139 g total protein 20-22 mL/kg 6757-2114 total fluid mLs NUTRITION DIAGNOSIS: Altered nutrition related lab values R/T ESRD, DM as evidenced by elev Creat (10.4), low Na (134), elev K (5.4), elev Phos (9.2), elev BGs, improved. CURRENT DIET:CCHO MED, LOW K, LOW NA PO DIET RECOMMENDATIONS: RENAL, CCHO MED/ texture as tolerated ADDITIONAL RECOMMENDATIONS: * Obtain dry wt post HD * Phos binders w/ meals- last phos elev (9.2) * Check updated phos level- last done on 05/01 * Add Aashish 1pkt BID for wound healing. * texture modification as needed - on BIPAP prn
[2018-05-08] MEDS ORDERED: Heparin Sod 1000 units/ml 10ml IV PRN (14:36)
--- NOTE | 2018-05-08 14:37 | Nephrology Progress Note ---
Assessment/Plan Problem List: (1) ESRD (end stage renal disease) (2) Diabetic infection of left foot (3) Acute DVT (deep venous thrombosis) Assessment: LLE (4) PVD (peripheral vascular disease) (5) Anemia Assessment: worse (6) Iron deficiency (7) Thrombocytopenia Assessment: better (8) HTN (hypertension) Assessment: better Plan HDin AM continue Epogen abxs anticoagulation follow labs IV Iron Subjective Subjective feels better Objective Objective Last 24 Hour Vital Signs Date Time Temp Pulse Resp B/P (MAP) Pulse Ox O2 Delivery O2 Flow Rate FiO2 05/08/18 14:09 99 159/92 05/08/18 12:00 98.0 99 21 159/92 (114) 95 05/08/18 11:48 90 05/08/18 11:46 92 14 98 Facial 45 05/08/18 09:46 154/105 05/08/18 09:09 100 22 98 Venturi Mask 12.0 50 05/08/18 09:00 Bi-pap Bi-pap 05/08/18 08:53 97 22 97 Venturi Mask 12.0 50 05/08/18 08:00 98.4 81 20 154/105 (121) 100 05/08/18 07:50 99 05/08/18 07:31 97 19 98 Facial 45 05/08/18 07:30 Bi-pap 45 05/08/18 07:30 98 Bi-pap 45 05/08/18 05:45 99 152/90 05/08/18 04:51 99 22 98 Venturi Mask 12.0 50 05/08/18 04:41 98 22 95 Venturi Mask 12.0 50 05/08/18 04:18 110 05/08/18 04:00 97.0 94 18 152/90 (110) 99 05/08/18 03:20 95 05/08/18 02:32 98 20 94 Facial 45 05/08/18 01:14 95 12.0 50 05/08/18 00:00 98.2 98 18 148/84 (105) 100 05/07/18 23:19 99 05/07/18 23:05 98 14 98 Bi-pap 45 05/07/18 22:55 101 13 98 Facial 45 05/07/18 22:55 101 14 98 Bi-pap 45 05/07/18 22:23 102 150/85 05/07/18 21:06 100 13 100 Facial 45 05/07/18 21:00 Bi-pap Bi-pap 05/07/18 20:00 97.9 102 20 150/85 (106) 96 05/07/18 19:37 103 05/07/18 18:27 104 20 96 Facial 45 05/07/18 18:27 96 Bi-pap 45 05/07/18 18:27 Bi-pap 45 05/07/18 17:33 139/79 05/07/18 16:00 97.7 92 20 139/79 (99) 98 05/07/18 16:00 96 05/07/18 15:08 Venturi Mask Intake and Output 05/07/18 05/08/18 19:00 07:00 Intake Total 400 ml Output Total 4000 ml Balance -4000 ml 400 ml Intake Oral 400 ml Hemodialysis UF 4000 ml # Bowel Movements 1 1 Laboratory Tests 05/07/18 15:00: Random Vancomycin Level 16.7 05/08/18 04:55: Prothrombin Time 29.0H, Prothromb Time International Ratio 2.9H Height (Feet): 5 Height (Inches): 7.00 Weight (Pounds): 288 Cardiovascular: normal rate Respiratory/Chest: lungs clear Extremities: moderate edema Johan Harper MD May 08, 2018 14:37
--- NOTE | 2018-05-08 14:59 | Pulmonology Progress Note ---
Assessment/Plan Assessment/Plan Problem List: 1. Diabetic foot infection 2. Acute diastolic CHF exacerbation/pulmonary edema 3. COPD w/o obvious exacerbation 4. CHU 5. ESRD on HD 6. Hx multiple amputations 7. Thrombocytopenia 8. Anemia 9. L leg DVT 10. HTN - uncontrolled 11. SVT Plan: Abx per ID Podiatric wound care/debridement as needed Monitor volumes, cont volume removed with HD Stressed fluid restriction Aggressive BP control Duonebs q6 Cont CPAP 10 cm H2O Cont coumadin No plans for IVC filter Repeat CXR tomorrow Case d/w Dr. Harper and RN Subjective ROS Limited/Unobtainable: Yes Interval Events: Still short of breath. Asking for CPAP during the day. Excessive H2O Constitutional: Reports: no symptoms Respiratory: Reports: shortness of breath Cardiovascular: Reports: no symptoms Gastrointestinal/Abdominal: Reports: no symptoms Genitourinary: Reports: no symptoms Allergies: Coded Allergies: NO KNOWN DRUG ALLERGIES (Verified Allergy, Unknown, 03/06/18) Objective Last 24 Hour Vital Signs Date Time Temp Pulse Resp B/P (MAP) Pulse Ox O2 Delivery O2 Flow Rate FiO2 05/08/18 14:09 99 159/92 05/08/18 12:00 98.0 99 21 159/92 (114) 95 05/08/18 11:48 90 05/08/18 11:46 92 14 98 Facial 45 05/08/18 09:46 154/105 05/08/18 09:09 100 22 98 Venturi Mask 12.0 50 05/08/18 09:00 Bi-pap Bi-pap 05/08/18 08:53 97 22 97 Venturi Mask 12.0 50 05/08/18 08:00 98.4 81 20 154/105 (121) 100 05/08/18 07:50 99 05/08/18 07:31 97 19 98 Facial 45 05/08/18 07:30 Bi-pap 45 05/08/18 07:30 98 Bi-pap 45 05/08/18 05:45 99 152/90 05/08/18 04:51 99 22 98 Venturi Mask 12.0 50 05/08/18 04:41 98 22 95 Venturi Mask 12.0 50 05/08/18 04:18 110 05/08/18 04:00 97.0 94 18 152/90 (110) 99 05/08/18 03:20 95 05/08/18 02:32 98 20 94 Facial 45 05/08/18 01:14 95 12.0 50 05/08/18 00:00 98.2 98 18 148/84 (105) 100 05/07/18 23:19 99 05/07/18 23:05 98 14 98 Bi-pap 45 05/07/18 22:55 101 13 98 Facial 45 05/07/18 22:55 101 14 98 Bi-pap 45 05/07/18 22:23 102 150/85 05/07/18 21:06 100 13 100 Facial 45 05/07/18 21:00 Bi-pap Bi-pap 05/07/18 20:00 97.9 102 20 150/85 (106) 96 05/07/18 19:37 103 05/07/18 18:27 104 20 96 Facial 45 05/07/18 18:27 96 Bi-pap 45 05/07/18 18:27 Bi-pap 45 05/07/18 17:33 139/79 05/07/18 16:00 97.7 92 20 139/79 (99) 98 05/07/18 16:00 96 05/07/18 15:08 Venturi Mask Intake and Output 05/07/18 05/08/18 19:00 07:00 Intake Total 400 ml Output Total 4000 ml Balance -4000 ml 400 ml Intake Oral 400 ml Hemodialysis UF 4000 ml # Bowel Movements 1 1 General Appearance: no acute distress HEENT: normocephalic, atraumatic Respiratory/Chest: crackles/rales Cardiovascular: normal rate, regular rhythm Abdomen: normal bowel sounds, soft, non tender Extremities: other - Improved edema Laboratory Tests 05/07/18 15:00: Random Vancomycin Level 16.7 05/08/18 04:55: Prothrombin Time 29.0H, Prothromb Time International Ratio 2.9H Current Medications Medications (Trade) Dose Ordered Sig/Oliverio Route PRN Reason Start Time Stop Time Status Last Admin Dose Admin Acetaminophen (Tylenol) 650 mg Q6H PRN ORAL Mild Pain/Temp > 100.5 05/06/18 23:45 05/23/18 17:40 05/08/18 05:21 Allopurinol (Zyloprim) 100 mg DAILY ORAL 05/07/18 09:00 05/24/18 08:59 05/08/18 09:45 Calcium Carbonate (Tums) 500 mg TIDPRN PRN ORAL Nausea & Vomiting/Dyspepsia 05/07/18 17:45 06/01/18 17:40 Clonidine HCl (Catapres Tab) 0.1 mg Q2H PRN ORAL SBP > 170 05/06/18 23:15 06/01/18 13:14 Clonidine HCl (Catapres tab) 0.2 mg BID ORAL 05/07/18 18:00 06/06/18 17:59 05/08/18 09:46 Collagenase (Santyl) 1 applic DAILY TOPIC 05/07/18 09:00 06/04/18 08:59 05/08/18 09:48 Dextrose (Dextrose 50%) 25 ml Q30M PRN IV Hypoglycemia 05/06/18 23:00 05/23/18 22:59 Dextrose (Dextrose 50%) 50 ml Q30M PRN IV Hypoglycemia 05/06/18 23:00 05/23/18 22:59 Diltiazem HCl (Cardizem) 90 mg EVERY 8 HOURS ORAL 05/07/18 06:00 06/01/18 13:59 05/08/18 14:09 Docusate Sodium (Colace) 100 mg TWICE A DAY ORAL 05/07/18 09:00 05/24/18 08:59 05/08/18 09:45 Epoetin Yung (Procrit (for ESRD on dialysis)) 7,000 units SUN-SUN-SUN SUBQ 05/08/18 21:00 05/29/18 20:59 Finasteride (Proscar) 5 mg DAILY ORAL 05/07/18 09:00 05/24/18 08:59 05/08/18 09:45 Gabapentin (Neurontin) 300 mg DAILY ORAL 05/07/18 09:00 05/24/18 08:59 05/08/18 09:46 Heparin Sodium (Porcine) (Heparin Sod 1000 units/ml 10ml) 500 unit ONCE PRN IV DIALYSIS USE 05/06/18 23:00 05/11/18 22:59 Heparin Sodium (Porcine) (Heparin Sod 1000 units/ml 10ml) 500 unit ONCE PRN IV DIALYSIS 05/08/18 14:36 05/09/18 23:59 Insulin Aspart (NovoLOG) BEFORE MEALS AND HS SUBQ 05/07/18 06:30 05/24/18 06:29 05/07/18 22:40 Ipratropium [place] (Atrovent) 500 mcg Q4HRT PRN HHN Shortness of Breath 05/07/18 05:48 05/12/18 05:47 05/08/18 08:53 Meropenem 500 mg/ Sodium Chloride 55 ml @ 110 mls/hr Q24H IVPB 05/07/18 21:00 06/04/18 23:00 05/07/18 22:22 Pantoprazole (Protonix) 40 mg ACBREAKFAST ORAL 05/07/18 06:30 06/03/18 06:29 05/08/18 05:46 Sodium Chloride 1,000 ml @ 500 mls/hr Q2H PRN IVLG sbp<90 during hd 05/08/18 14:36 05/09/18 23:59 Tamsulosin HCl (Flomax) 0.4 mg BEDTIME ORAL 05/07/18 21:00 05/23/18 23:44 05/07/18 22:23 Vancomycin HCl (Vanco rx to dose) 1 ea DAILY PRN MISC Per rx protocol 05/07/18 09:00 06/04/18 23:00 Vitamin B Complex/ Vit C/Folic Acid (Nephrovite) 1 tab DAILY ORAL 05/07/18 09:00 05/26/18 08:59 05/08/18 09:45 Warfarin Sodium (Coumadin per pharmacy) 1 ea DAILY PRN MISC Per rx protocol 05/07/18 09:00 05/29/18 08:14 Warfarin Sodium (Coumadin) 4 mg COUMADIN ONCE PO 05/08/18 17:00 05/08/18 17:01 Tyrel Platt MD May 08, 2018 14:59
--- NOTE | 2018-05-08 15:07 | NUR ---
Social Service Note Clinicals faxed to Dharmesh at [place] to determine eligibility [phone] (p) [phone] (f). Will monitor and follow up.
--- NOTE | 2018-05-08 15:58 | General Progress Note ---
Assessment/Plan Assessment/Plan # DVT of the deep veins superficial and politeal of the left leg, thrombocytopenia likely due to hep B chronic status --> VQ scan shows low probability of PE --> remains with anemia and low platelets therefore contraindication for anticoagulation --> will hold off on IVC filter --> continue coumadin inr goal 2-3 --> Cards and pulm recs appreciated as well as renal, vasc --> only if h/h drops, reconsider ivc filter, but currently doing well on coumadin # Thrombocytopenia -- plt goal >20k, transfuse as required, hepatitis B chronic infection --> plt trend in the 66k-->63k-->58k-->60k-->120k-->170k --> hep B noted and if no change in plt, consider anticoagulation --> coumadin okay to continue # Anemia of iron deficiency --> started on iron and epogen --> anemia panel has been reviewed --> hgb goal >7, transfuse as needed --> peripheral smear to be reviewed # Chronic hepatitis B -- appears to be chronic though need to confirm --> hep b surface antigen is postiive which means has chronic hepatitis B --> hep B surface antibody negative which means does not have immunity # Acute CHF exacerbation/pulmonary edema --> as per pulm # COPD w/o obvious exacerbation # CHU # ESRD on HD --> hd as per renal # Hx multiple amputations # Diabetic foot infection --> as per ID Time of note does not necessarily reflect time of encounter Greatly appreciate consultation! Subjective Constitutional: Denies: no symptoms, chills, diaphoresis, fever, malaise, weakness, other HEENT: Denies: no symptoms, eye pain, blurred vision, tearing, double vision, ear pain, ear discharge, nose pain, nose congestion, throat pain, throat swelling, mouth pain, mouth swelling, other Cardiovascular: Denies: no symptoms, chest pain, edema, irregular heart rate, lightheadedness, palpitations, syncope, other Respiratory: Denies: no symptoms, cough, orthopnea, shortness of breath, SOB with excertion, SOB at rest, sputum, stridor, wheezing, other Gastrointestinal/Abdominal: Denies: no symptoms, abdomen distended, abdominal pain, black stools, tarry stools, blood in stool, constipated, diarrhea, difficulty swallowing, nausea, poor appetite, poor fluid intake, rectal bleeding , vomiting, other Genitourinary: Denies: no symptoms, burning, discharge, frequency, flank pain, hematuria, incontinence, pain, urgency, other Neurologic/Psychiatric: Denies: no symptoms, anxiety, depressed, emotional problems, headache, numbness, paresthesia, pre-existing deficit, seizure, tingling, tremors, weakness, other Endocrine: Denies: no symptoms, excessive sweating, flushing, intolerance to cold, intolerance to heat, increased hunger, increased thirst, increased urine, unexplained weight gain, unexplained weight loss, other Allergies: Coded Allergies: NO KNOWN DRUG ALLERGIES (Verified Allergy, Unknown, 03/06/18) Subjective 04/26: no events, potential plan for ivc f on sunday.12: no further ivc filter planned, started on coumadin inr goal 2-3 04/28: on iron and epogen dw Dr. Harper, continue as per his recs 04/29: awake and comfortable, HD today, On BIPAP and Oxygen. No new events. 04/30: Pt is seen by bedside, Platelets rising, 101 today. Coumadin started. Sleeping with BiPAP, HD tomorrow. 05/01: Pt was transferred to ICU for SVT on BIPAP, complains of less pain and swelling in his left foot, getting HD. 05/02: remains inthe icu, nsr at this time, tolerating coumadin, h/h relatively stable, plt better 05/03: has hepatitis Bs antigen and the ab is negative which means he doesn't have immunity, on coumadin, iron, procrit 05/07: Pt is seen by bedside, awake and alert, getting HD , no events 05/08: no events, no night sweats, tolerating anticoag well Objective Last 24 Hour Vital Signs Date Time Temp Pulse Resp B/P (MAP) Pulse Ox O2 Delivery O2 Flow Rate FiO2 05/08/18 14:09 99 159/92 05/08/18 12:00 98.0 99 21 159/92 (114) 95 05/08/18 11:48 90 05/08/18 11:46 92 14 98 Facial 45 05/08/18 09:46 154/105 05/08/18 09:09 100 22 98 Venturi Mask 12.0 50 05/08/18 09:00 Bi-pap Bi-pap 05/08/18 08:53 97 22 97 Venturi Mask 12.0 50 05/08/18 08:00 98.4 81 20 154/105 (121) 100 05/08/18 07:50 99 05/08/18 07:31 97 19 98 Facial 45 05/08/18 07:30 Bi-pap 45 05/08/18 07:30 98 Bi-pap 45 05/08/18 05:45 99 152/90 05/08/18 04:51 99 22 98 Venturi Mask 12.0 50 05/08/18 04:41 98 22 95 Venturi Mask 12.0 50 05/08/18 04:18 110 05/08/18 04:00 97.0 94 18 152/90 (110) 99 05/08/18 03:20 95 05/08/18 02:32 98 20 94 Facial 45 05/08/18 01:14 95 12.0 50 05/08/18 00:00 98.2 98 18 148/84 (105) 100 05/07/18 23:19 99 05/07/18 23:05 98 14 98 Bi-pap 45 05/07/18 22:55 101 13 98 Facial 45 05/07/18 22:55 101 14 98 Bi-pap 45 05/07/18 22:23 102 150/85 05/07/18 21:06 100 13 100 Facial 45 05/07/18 21:00 Bi-pap Bi-pap 05/07/18 20:00 97.9 102 20 150/85 (106) 96 05/07/18 19:37 103 05/07/18 18:27 104 20 96 Facial 45 05/07/18 18:27 96 Bi-pap 45 05/07/18 18:27 Bi-pap 45 05/07/18 17:33 139/79 05/07/18 16:00 97.7 92 20 139/79 (99) 98 05/07/18 16:00 96 Intake and Output 05/07/18 05/08/18 18:59 06:59 Intake Total 400 ml Output Total 4000 ml Balance -4000 ml 400 ml Intake Oral 400 ml Hemodialysis UF 4000 ml # Bowel Movements 1 1 Laboratory Tests 05/08/18 04:55: Prothrombin Time 29.0H, Prothromb Time International Ratio 2.9H Height (Feet): 5 Height (Inches): 7.00 Weight (Pounds): 288 Objective Gen: NAD HEAD AND NECK: No JVD. LUNGS: Decreased breath sounds. CARDIOVASCULAR: Regular S1 and S2 with no gallop. ABDOMEN: Soft. EXTREMITIES: Status post multiple amputations, 2+ lower extremity edema. L thigh shunt Juve Soto MD May 08, 2018 15:58
[2018-05-08 16:00] VITALS: BP 133/83
[2018-05-08] MEDS ORDERED: Warfarin Sodium 4mg PO ONE (17:00)
--- NOTE | 2018-05-08 17:07 | Infectious Diseases Prog Note ---
Assessment/Plan Problems: (1) Acute osteomyelitis of metatarsal bone of left foot Assessment & Plan: left stump wound grew MRSA and Enterobacter cloacae, will continue meropenem and vancomycin treatment for osteomyelitis of the left foot metatarsal bone for 6 weeks. may switch to ertapenem once ready to be discharged to finish his course of treatment for 6 weeks total . continue local wound care and dressings change as per sales floor team member. vascular recommended no revascularization at this point. will treat with iv antibiotics for 6 weeks for his left metatarsal bone osteomyelitis. will follow patient along with sales floor team member (2) Achilles tendon infection Assessment & Plan: with open wound, already on wide spectrum antibiotics coverage , continue local wound care and dressings change , podiatry is following (3) Diabetic foot infection Assessment & Plan: continue wide spectrum antibiotics , with tight glycemic control. (4) ESRD (end stage renal disease) Assessment & Plan: on HD , renal is following (5) PVD (peripheral vascular disease) Assessment & Plan: had vascular eval , no need for angioplasty of the left leg as per vascular, on anticoagulation (6) Hepatitis B surface antigen positive Assessment & Plan: suspect due to recent vaccination , rule out active HBV infection, await viral load to confirm (7) Acute dyspnea Assessment & Plan: improving, suspect due to fluids over load, continue aggressive HD , monitor ABG, and CXR , continue BIPAP, pulmonary is following (8) Acute bacterial conjunctivitis Assessment & Plan: S/P moxifloxacin eye drops for 5 days Subjective Constitutional: Reports: no symptoms HEENT: Reports: no symptoms Respiratory: Reports: dry cough Breasts: Reports: no symptoms Cardiovascular: Reports: no symptoms Gastrointestinal/Abdominal: Reports: no symptoms Genitourinary: Reports: no symptoms Neurologic: Reports: no symptoms Psychiatric: Reports: no symptoms Skin: Reports: no symptoms Endocrine: Reports: no symptoms Hematologic: Reports: no symptoms Musculoskeletal: Reports: no symptoms Allergies: Coded Allergies: NO KNOWN DRUG ALLERGIES (Verified Allergy, Unknown, 03/06/18) Subjective he was transferred out of ICU , now off BIPAP, feels better less congested and not short of breath , with less pain and swelling in his left foot, no productive cough Objective Vital Signs Last 24 Hour Vital Signs Date Time Temp Pulse Resp B/P (MAP) Pulse Ox O2 Delivery O2 Flow Rate FiO2 05/08/18 16:19 98 15 97 Facial 45 05/08/18 16:00 98.3 95 18 133/83 (100) 99 05/08/18 15:55 96 22 98 Venturi Mask 12.0 50 05/08/18 15:40 95 18 95 Venturi Mask 12.0 50 05/08/18 15:13 92 05/08/18 14:09 99 159/92 05/08/18 12:00 98.0 99 21 159/92 (114) 95 05/08/18 11:48 90 05/08/18 11:46 92 14 98 Facial 45 05/08/18 09:46 154/105 05/08/18 09:09 100 22 98 Venturi Mask 12.0 50 05/08/18 09:00 Bi-pap Bi-pap 05/08/18 08:53 97 22 97 Venturi Mask 12.0 50 05/08/18 08:00 98.4 81 20 154/105 (121) 100 05/08/18 07:50 99 05/08/18 07:31 97 19 98 Facial 45 05/08/18 07:30 Bi-pap 45 05/08/18 07:30 98 Bi-pap 45 05/08/18 05:45 99 152/90 05/08/18 04:51 99 22 98 Venturi Mask 12.0 50 05/08/18 04:41 98 22 95 Venturi Mask 12.0 50 05/08/18 04:18 110 05/08/18 04:00 97.0 94 18 152/90 (110) 99 05/08/18 03:20 95 05/08/18 02:32 98 20 94 Facial 45 05/08/18 01:14 95 12.0 50 05/08/18 00:00 98.2 98 18 148/84 (105) 100 05/07/18 23:19 99 05/07/18 23:05 98 14 98 Bi-pap 45 05/07/18 22:55 101 13 98 Facial 45 05/07/18 22:55 101 14 98 Bi-pap 45 05/07/18 22:23 102 150/85 05/07/18 21:06 100 13 100 Facial 45 05/07/18 21:00 Bi-pap Bi-pap 05/07/18 20:00 97.9 102 20 150/85 (106) 96 05/07/18 19:37 103 05/07/18 18:27 104 20 96 Facial 45 05/07/18 18:27 96 Bi-pap 45 05/07/18 18:27 Bi-pap 45 05/07/18 17:33 139/79 Height (Feet): 5 Height (Inches): 7.00 Weight (Pounds): 288 General Appearance: WD/WN, no acute distress HEENT: normocephalic, atraumatic, anicteric, mucous membranes moist, PERRL Respiratory/Chest: chest wall non-tender, no respiratory distress, no accessory muscle use, decreased breath sounds, crackles/rales Cardiovascular: normal peripheral pulses, normal rate, regular rhythm, no gallop/murmur, no JVD Abdomen: normal bowel sounds, soft, non tender, no organomegaly, non distended , no mass, no scars Extremities: no cyanosis, no clubbing Skin: no rash, no lesions, no ulcers Neurologic/Psychiatric: alert, oriented x 3, responsive Lymphatic: no neck adenopathy, no groin adenopathy Musculoskeletal: normal muscle bulk, no effusion Laboratory Tests Test 05/08/18 04:55 Prothrombin Time 29.0 SEC (9.30-11.50) H Prothromb Time International Ratio 2.9 (0.9-1.1) H Current Medications Medications (Trade) Dose Ordered Sig/Oliverio Route PRN Reason Start Time Stop Time Status Last Admin Dose Admin Acetaminophen (Tylenol) 650 mg Q6H PRN ORAL Mild Pain/Temp > 100.5 05/06/18 23:45 05/23/18 17:40 05/08/18 05:21 Allopurinol (Zyloprim) 100 mg DAILY ORAL 05/07/18 09:00 05/24/18 08:59 05/08/18 09:45 Calcium Carbonate (Tums) 500 mg TIDPRN PRN ORAL Nausea & Vomiting/Dyspepsia 05/07/18 17:45 06/01/18 17:40 Clonidine HCl (Catapres Tab) 0.1 mg Q2H PRN ORAL SBP > 170 05/06/18 23:15 06/01/18 13:14 Clonidine HCl (Catapres tab) 0.2 mg BID ORAL 05/07/18 18:00 06/06/18 17:59 05/08/18 09:46 Collagenase (Santyl) 1 applic DAILY TOPIC 05/07/18 09:00 06/04/18 08:59 05/08/18 09:48 Dextrose (Dextrose 50%) 25 ml Q30M PRN IV Hypoglycemia 05/06/18 23:00 05/23/18 22:59 Dextrose (Dextrose 50%) 50 ml Q30M PRN IV Hypoglycemia 05/06/18 23:00 05/23/18 22:59 Diltiazem HCl (Cardizem) 90 mg EVERY 8 HOURS ORAL 05/07/18 06:00 06/01/18 13:59 05/08/18 14:09 Docusate Sodium (Colace) 100 mg TWICE A DAY ORAL 05/07/18 09:00 05/24/18 08:59 05/08/18 09:45 Epoetin Yung (Procrit (for ESRD on dialysis)) 7,000 units SUN-SUN-SUN SUBQ 05/08/18 21:00 05/29/18 20:59 Finasteride (Proscar) 5 mg DAILY ORAL 05/07/18 09:00 05/24/18 08:59 05/08/18 09:45 Gabapentin (Neurontin) 300 mg DAILY ORAL 05/07/18 09:00 05/24/18 08:59 05/08/18 09:46 Heparin Sodium (Porcine) (Heparin Sod 1000 units/ml 10ml) 500 unit ONCE PRN IV DIALYSIS USE 05/06/18 23:00 05/11/18 22:59 Heparin Sodium (Porcine) (Heparin Sod 1000 units/ml 10ml) 500 unit ONCE PRN IV DIALYSIS 05/08/18 14:36 05/09/18 23:59 Insulin Aspart (NovoLOG) BEFORE MEALS AND HS SUBQ 05/07/18 06:30 05/24/18 06:29 05/07/18 22:40 Ipratropium [place] (Atrovent) 500 mcg Q4HRT PRN HHN Shortness of Breath 05/07/18 05:48 05/12/18 05:47 05/08/18 15:49 Meropenem 500 mg/ Sodium Chloride 55 ml @ 110 mls/hr Q24H IVPB 05/07/18 21:00 06/04/18 23:00 05/07/18 22:22 Pantoprazole (Protonix) 40 mg ACBREAKFAST ORAL 05/07/18 06:30 06/03/18 06:29 05/08/18 05:46 Sodium Chloride 1,000 ml @ 500 mls/hr Q2H PRN IVLG sbp<90 during hd 05/08/18 14:36 05/09/18 23:59 Tamsulosin HCl (Flomax) 0.4 mg BEDTIME ORAL 05/07/18 21:00 05/23/18 23:44 05/07/18 22:23 Vancomycin HCl (Vanco rx to dose) 1 ea DAILY PRN MISC Per rx protocol 05/07/18 09:00 06/04/18 23:00 Vitamin B Complex/ Vit C/Folic Acid (Nephrovite) 1 tab DAILY ORAL 05/07/18 09:00 05/26/18 08:59 05/08/18 09:45 Warfarin Sodium (Coumadin per pharmacy) 1 ea DAILY PRN MISC Per rx protocol 05/07/18 09:00 05/29/18 08:14 Jaime Casey M.D. May 08, 2018 17:07
--- NOTE | 2018-05-08 19:00 | NUR ---
RESPIRATORY NOTE: Placed pt back on bipap per pt request. Jennifer Bucio aware. Pt does not want foam tape underneath mask. Bipap is plugged into red outlet. Will continue to monitor pt.
--- NOTE | 2018-05-08 19:10 | NUR ---
NURSE NOTES: Received report from Beatriz RN/ Breana RN, pt. in bed awake, A/O x's4- able to make needs known, pt. appears to be resting comfortably in bed, bed in lowest position and call light within easy reach, bed alarm on side rails up x's 3- safety brakes engaged, no signs of acute cardiac or respiratory distress noted, pt. appears to be tolerating current CPAP 10 at fio2 30%- no distress noted, dressings dry and intact to left foot, comfort measures provided, RFA 20G and Lt. wrist 20G both ivs intact and patent, safety measures continued, will continue with plan of care.
--- NOTE | 2018-05-08 19:25 | NUR ---
HAND-OFF: Report given to Aliyah POON. Pt. remain stable.
--- NOTE | 2018-05-08 19:32 | General Progress Note ---
Assessment/Plan Assessment/Plan Assessment - Heme (+) stools - Anemia and thrombocytopenia - DVT - on anticoagulation - Hep B S Ag (+) - DM - PVD - CHU - PVD / amputation - Poor Px Recommendations - Patient appropriately has declined GI w/u - Will follow conservatively - Monitor CBC while on anticoagulation - Replace Fe IV - PPI - if H&H declines on anticoagulation, may need to reconsider IVC filter - Check HBV quantitative PCR - d/c planning per PMD Subjective Allergies: Coded Allergies: NO KNOWN DRUG ALLERGIES (Verified Allergy, Unknown, 03/06/18) Subjective eating better no abd pain Objective Last 24 Hour Vital Signs Date Time Temp Pulse Resp B/P (MAP) Pulse Ox O2 Delivery O2 Flow Rate FiO2 05/08/18 18:10 133/83 05/08/18 16:19 98 15 97 Facial 45 05/08/18 16:00 98.3 95 18 133/83 (100) 99 05/08/18 15:55 96 22 98 Venturi Mask 12.0 50 05/08/18 15:40 95 18 95 Venturi Mask 12.0 50 05/08/18 15:13 92 05/08/18 14:09 99 159/92 05/08/18 12:00 98.0 99 21 159/92 (114) 95 05/08/18 11:48 90 05/08/18 11:46 92 14 98 Facial 45 05/08/18 09:46 154/105 05/08/18 09:09 100 22 98 Venturi Mask 12.0 50 05/08/18 09:00 Bi-pap Bi-pap 05/08/18 08:53 97 22 97 Venturi Mask 12.0 50 05/08/18 08:00 98.4 81 20 154/105 (121) 100 05/08/18 07:50 99 05/08/18 07:31 97 19 98 Facial 45 05/08/18 07:30 Bi-pap 45 05/08/18 07:30 98 Bi-pap 45 05/08/18 05:45 99 152/90 05/08/18 04:51 99 22 98 Venturi Mask 12.0 50 05/08/18 04:41 98 22 95 Venturi Mask 12.0 50 05/08/18 04:18 110 05/08/18 04:00 97.0 94 18 152/90 (110) 99 05/08/18 03:20 95 05/08/18 02:32 98 20 94 Facial 45 05/08/18 01:14 95 12.0 50 05/08/18 00:00 98.2 98 18 148/84 (105) 100 05/07/18 23:19 99 05/07/18 23:05 98 14 98 Bi-pap 45 05/07/18 22:55 101 13 98 Facial 45 05/07/18 22:55 101 14 98 Bi-pap 45 05/07/18 22:23 102 150/85 05/07/18 21:06 100 13 100 Facial 45 05/07/18 21:00 Bi-pap Bi-pap 05/07/18 20:00 97.9 102 20 150/85 (106) 96 05/07/18 19:37 103 Intake and Output 05/07/18 05/08/18 19:00 07:00 Intake Total 400 ml Output Total 4000 ml Balance -4000 ml 400 ml Intake Oral 400 ml Hemodialysis UF 4000 ml # Bowel Movements 1 1 Laboratory Tests 05/08/18 04:55: Prothrombin Time 29.0H, Prothromb Time International Ratio 2.9H Height (Feet): 5 Height (Inches): 7.00 Weight (Pounds): 288 Objective Obese AA man NCAT coarse BS, ronchi RR obese abd nonfocal (+) UE amputations Bee Krueger MD May 08, 2018 19:32
[2018-05-08 20:00] VITALS: BP 153/87
[2018-05-08] MEDS: Tamsulosin 0.4mg cap ORAL SCH (20:26)
[2018-05-08] MEDS: Meropenem 500 MG in NS 55 ML IVPB SCH (20:26)
[2018-05-08] MEDS: Epogen (for ESRD on dialysis) SUBQ SCH (20:32)
--- NOTE | 2018-05-08 22:24 | General Progress Note ---
Assessment/Plan Assessment/Plan cellulitis osteo myosisits renal failure on dialysis ho chf ho ermias thrombocytopenia dvt vq negative HTNsvt abx per ID podiatry fup wound care arterial study noted dw Dr Raygoza, vascular eval from Dr Oliveira apprecated patient with chronic low platelets from ho hepatitis per heme will hold off on ivc filter coumadin per pharmacy doing well fe deficiency anemia, started on iron and epo GI eval appreciated, patient refuses GI workup dialysis dependent pulmonary fup cards fup echo noted on cardizem drip converted to sinus rhythm monior platelets hgb dvt and ulcer prohylaxis dw Dr Gallito Platt and Dr Soto as well as Dr Fink who have cleared patient for dc, per dw CM patient will benefit from LTAC awaiting placement Subjective Allergies: Coded Allergies: NO KNOWN DRUG ALLERGIES (Verified Allergy, Unknown, 03/06/18) Subjective above noted feels better breathing better in sinus rhythm Objective Last 24 Hour Vital Signs Date Time Temp Pulse Resp B/P (MAP) Pulse Ox O2 Delivery O2 Flow Rate FiO2 05/08/18 21:24 97 18 99 Facial 45 05/08/18 21:17 84 153/87 05/08/18 21:00 Bi-pap Bi-pap 05/08/18 20:15 95 17 99 Bi-pap 45 05/08/18 20:04 101 17 98 Bi-pap 45 05/08/18 20:00 92 05/08/18 20:00 98.4 96 20 153/87 (109) 97 05/08/18 20:00 45 05/08/18 19:00 Bi-pap 45 05/08/18 19:00 98 Bi-pap 45 05/08/18 19:00 101 22 98 Facial 45 05/08/18 18:10 133/83 05/08/18 16:19 98 15 97 Facial 45 05/08/18 16:00 98.3 95 18 133/83 (100) 99 05/08/18 15:55 96 22 98 Venturi Mask 12.0 50 05/08/18 15:40 95 18 95 Venturi Mask 12.0 50 05/08/18 15:13 92 05/08/18 14:09 99 159/92 05/08/18 12:00 98.0 99 21 159/92 (114) 95 05/08/18 11:48 90 05/08/18 11:46 92 14 98 Facial 45 05/08/18 09:46 154/105 05/08/18 09:09 100 22 98 Venturi Mask 12.0 50 05/08/18 09:00 Bi-pap Bi-pap 05/08/18 08:53 97 22 97 Venturi Mask 12.0 50 05/08/18 08:00 98.4 81 20 154/105 (121) 100 05/08/18 07:50 99 05/08/18 07:31 97 19 98 Facial 45 05/08/18 07:30 Bi-pap 45 05/08/18 07:30 98 Bi-pap 45 05/08/18 05:45 99 152/90 05/08/18 04:51 99 22 98 Venturi Mask 12.0 50 05/08/18 04:41 98 22 95 Venturi Mask 12.0 50 05/08/18 04:18 110 05/08/18 04:00 97.0 94 18 152/90 (110) 99 05/08/18 03:20 95 05/08/18 02:32 98 20 94 Facial 45 05/08/18 01:14 95 12.0 50 05/08/18 00:00 98.2 98 18 148/84 (105) 100 05/07/18 23:19 99 05/07/18 23:05 98 14 98 Bi-pap 45 05/07/18 22:55 101 13 98 Facial 45 05/07/18 22:55 101 14 98 Bi-pap 45 Intake and Output 05/07/18 05/08/18 19:00 07:00 Intake Total 400 ml Output Total 4000 ml Balance -4000 ml 400 ml Intake Oral 400 ml Hemodialysis UF 4000 ml # Bowel Movements 1 1 Laboratory Tests 05/08/18 04:55: Prothrombin Time 29.0H, Prothromb Time International Ratio 2.9H Height (Feet): 5 Height (Inches): 7.00 Weight (Pounds): 288 General Appearance: WD/WN, no apparent distress Cardiovascular: normal rate Respiratory/Chest: decreased breath sounds Abdomen: soft Objective left lower extremity dressing intact clean no bleeding Moe Sewell MD May 08, 2018 22:24
[2018-05-09] VITALS: BP 129/94
[2018-05-09] MEDS: Ipratropium 0.02% Inh Soln 2.5ml UD HHN PRN ×3 (03:41→18:50)
[2018-05-09 04:00] VITALS: BP 137/74
[2018-05-09] MEDS: dilTIAZem HCl 90mg tab ORAL SCH ×3 (05:47→21:40)
[2018-05-09] MEDS: NovoLOG Insulin Flexpen SUBQ SCH ×6 (05:48→21:43)
--- NOTE | 2018-05-09 07:00 | NUR ---
HAND-OFF: Report given to Alan RN, pt. remains stable and no signs of distress noted.
--- NOTE | 2018-05-09 07:40 | NUR ---
NURSE NOTES: Pt currently on bipap resting in bed with no acute s/s of pain, SOB, or n/v. No acute distress noted. Bed in lowest position, call light and belongings within reach.
[2018-05-09 07:41] LABS: ANION GAP 12 mmol/L (5-15); BLOOD UREA NITROGEN 85 mg/dL (7-18); CALCIUM 8.9 MG/DL (8.5-10.1); CARBON DIOXIDE 28 MMOL/L (21-32); CHLORIDE 95 MMOL/L (98-107); CREATININE 10.9 MG/DL (0.55-1.30); POTASSIUM 5.1 MMOL/L (3.5-5.1); SODIUM 135 MMOL/L (136-145)
[2018-05-09 07:45] LABS: HEMOGLOBIN 7.9 G/DL (14.2-18.0); MEAN CORPUSCULAR VOLUME 94 FL (80-99); PLATELET COUNT 146 K/UL (150-450); RED BLOOD COUNT 2.76 M/UL (4.70-6.10); RED CELL DISTRIBUTION WIDTH 17.8 % (11.6-14.8); WHITE BLOOD COUNT 4.9 K/UL (4.8-10.8)
[2018-05-09 08:00] VITALS: BP 132/76
[2018-05-09] MEDS: cloNIDine 0.2mg Tab ORAL SCH ×2 (08:43→17:40)
[2018-05-09] MEDS: Allopurinol 100mg Tab ORAL SCH (08:44)
[2018-05-09] MEDS: Nephrovite tab (Rena-Vite) ORAL SCH (08:44)
[2018-05-09] MEDS: Docusate 100mg cap ORAL SCH ×2 (08:45→17:39)
--- NOTE | 2018-05-09 09:32 | NUR ---
RADIOLOGY DEPT CHEST X-RAY DONE. PLEASE NOTE PATIENT'S NECKLACE WITH CRUCIFIX HAS BEEN PLACED ON PATIENT'S RIGHT WAIST TODAY BY TECHNOLOGIST DURING IMAGING.-P.DYE
--- NOTE | 2018-05-09 11:14 | General Progress Note ---
Assessment/Plan Assessment/Plan Assessment - Heme (+) stools - Anemia and thrombocytopenia - DVT - on anticoagulation - Hep B S Ag (+) - DM - PVD - CHU - PVD / amputation - Poor Px Recommendations - Patient appropriately has declined GI w/u - Will follow conservatively - Monitor CBC while on anticoagulation - Replace Fe IV - PPI - if H&H declines on anticoagulation, may need to reconsider IVC filter - Check HBV quantitative PCR - d/c planning per PMD Subjective Allergies: Coded Allergies: NO KNOWN DRUG ALLERGIES (Verified Allergy, Unknown, 03/06/18) Subjective eating better no abd pain back on BIPAP Objective Last 24 Hour Vital Signs Date Time Temp Pulse Resp B/P (MAP) Pulse Ox O2 Delivery O2 Flow Rate FiO2 05/09/18 09:00 Bi-pap Bi-pap 05/09/18 08:43 132/76 05/09/18 08:00 97.2 92 20 132/76 (94) 98 05/09/18 05:47 92 137/74 05/09/18 05:16 98 17 97 Facial 45 05/09/18 04:00 97.0 89 20 137/74 (95) 99 05/09/18 04:00 92 05/09/18 03:43 92 21 Bi-pap 45 05/09/18 03:41 98 21 97 Bi-pap 45 05/09/18 02:57 95 20 98 Facial 45 05/09/18 00:00 95 05/09/18 00:00 97.3 95 24 129/94 (106) 96 05/08/18 23:35 94 18 98 Venturi Mask 12.0 50 05/08/18 23:26 94 18 96 Venturi Mask 12.0 50 05/08/18 23:15 92 18 97 05/08/18 21:24 97 18 99 Facial 45 05/08/18 21:17 84 153/87 05/08/18 21:00 Bi-pap Bi-pap 05/08/18 20:15 95 17 99 Bi-pap 45 05/08/18 20:04 101 17 98 Bi-pap 45 05/08/18 20:00 92 05/08/18 20:00 98.4 96 20 153/87 (109) 97 05/08/18 20:00 45 05/08/18 19:00 Bi-pap 45 05/08/18 19:00 98 Bi-pap 45 05/08/18 19:00 101 22 98 Facial 45 05/08/18 18:10 133/83 05/08/18 16:19 98 15 97 Facial 45 05/08/18 16:00 98.3 95 18 133/83 (100) 99 05/08/18 15:55 96 22 98 Venturi Mask 12.0 50 05/08/18 15:40 95 18 95 Venturi Mask 12.0 50 05/08/18 15:13 92 05/08/18 14:09 99 159/92 05/08/18 12:00 98.0 99 21 159/92 (114) 95 05/08/18 11:48 90 05/08/18 11:46 92 14 98 Facial 45 Intake and Output 05/08/18 05/09/18 19:00 07:00 Intake Total 650 ml 295 ml Balance 650 ml 295 ml Intake Oral 650 ml 240 ml IV Total 55 ml Laboratory Tests 05/09/18 06:05: White Blood Count 4.9, Red Blood Count 2.76L, Hemoglobin 7.9L, Hematocrit 26.0L , Mean Corpuscular Volume 94, Mean Corpuscular Hemoglobin 28.6, Mean Corpuscular Hemoglobin Concent 30.5L, Red Cell Distribution Width 17.8H, Platelet Count 146L, Mean Platelet Volume 6.3L, Neutrophils (%) (Auto) , Lymphocytes (%) (Auto) , Monocytes (%) (Auto) , Eosinophils (%) (Auto) , Basophils (%) (Auto) , Differential Total Cells Counted 100, Neutrophils % ( Manual) 80H, Lymphocytes % (Manual) 5L, Monocytes % (Manual) 10, Eosinophils % ( Manual) 4H, Basophils % (Manual) 1, Band Neutrophils 0, Platelet Estimate DecreasedL, Platelet Morphology Normal, Hypochromasia 3+, Anisocytosis 2+, Prothrombin Time 30.1H, Prothromb Time International Ratio 3.0H, Sodium Level 135L, Potassium Level 5.1, Chloride Level 95L, Carbon Dioxide Level 28, Anion Gap 12, Blood Urea Nitrogen 85H, Creatinine 10.9H, Estimat Glomerular Filtration Rate 5.8, Glucose Level 103, Calcium Level 8.9 Height (Feet): 5 Height (Inches): 7.00 Weight (Pounds): 288 Objective Obese AA man NCAT coarse BS, ronsuraj RR obese abd nonfocal (+) UE amputations Bee Krueger MD May 09, 2018 11:14
--- NOTE | 2018-05-09 11:30 | NUR ---
NURSE NOTES: Pt agreed with accucheck at 1130 but pt is currently getting dialysis and stated, "I want to get my insulin after my dialysis when I eat my food." Will withhold dialysis until pt is able to eat.
--- NOTE | 2018-05-09 11:30 | NUR ---
RESPIRATORY NOTE: Patient requested to be put on CPAP: 10, 45%. Skin intact, no signs of skin breakdown or redness. Will continue to monitor patient.
--- NOTE | 2018-05-09 11:51 | Diagnostic Imaging Report ---
Indication: Shortness of breath Technique: One view of the chest Comparison: 05/04/2018 Findings: The heart remains enlarged. Diffuse and extensive and airspace opacities are again demonstrated, stable on the left and increased on the right. There there are small bilateral pleural effusions, possibly increased on the left. Impression: Bilateral diffuse interstitial and airspace infiltrates versus edema, stable on the left and worse on the right, over 5 days Stable right and possibly increased small left pleural effusions
[2018-05-09 12:00] VITALS: BP 136/76
--- NOTE | 2018-05-09 12:24 | Nephrology Progress Note ---
Assessment/Plan Problem List: (1) ESRD (end stage renal disease) (2) Diabetic infection of left foot (3) Acute DVT (deep venous thrombosis) Assessment: LLE (4) PVD (peripheral vascular disease) (5) Anemia Assessment: better (6) Iron deficiency (7) Thrombocytopenia Assessment: worse (8) HTN (hypertension) Assessment: ok Plan HD as tolerated continue Epogen abxs anticoagulation follow labs Subjective Subjective feels better Objective Objective Last 24 Hour Vital Signs Date Time Temp Pulse Resp B/P (MAP) Pulse Ox O2 Delivery O2 Flow Rate FiO2 05/09/18 12:00 97.3 95 21 136/76 (96) 97 05/09/18 11:27 90 22 98 Venturi Mask 12.0 50 05/09/18 11:19 93 Venturi Mask 12.0 50 05/09/18 11:19 Venturi Mask 50 05/09/18 11:17 96 21 93 Venturi Mask 12.0 50 05/09/18 09:00 Bi-pap Bi-pap 05/09/18 08:43 132/76 05/09/18 08:00 97.2 92 20 132/76 (94) 98 05/09/18 08:00 98 05/09/18 05:47 92 137/74 05/09/18 05:16 98 17 97 Facial 45 05/09/18 04:00 97.0 89 20 137/74 (95) 99 05/09/18 04:00 92 05/09/18 03:43 92 21 Bi-pap 45 05/09/18 03:41 98 21 97 Bi-pap 45 05/09/18 02:57 95 20 98 Facial 45 05/09/18 00:00 95 05/09/18 00:00 97.3 95 24 129/94 (106) 96 05/08/18 23:35 94 18 98 Venturi Mask 12.0 50 05/08/18 23:26 94 18 96 Venturi Mask 12.0 50 05/08/18 23:15 92 18 97 05/08/18 21:24 97 18 99 Facial 45 05/08/18 21:17 84 153/87 05/08/18 21:00 Bi-pap Bi-pap 05/08/18 20:15 95 17 99 Bi-pap 45 05/08/18 20:04 101 17 98 Bi-pap 45 05/08/18 20:00 92 05/08/18 20:00 98.4 96 20 153/87 (109) 97 05/08/18 20:00 45 05/08/18 19:00 Bi-pap 45 05/08/18 19:00 98 Bi-pap 45 05/08/18 19:00 101 22 98 Facial 45 05/08/18 18:10 133/83 05/08/18 16:19 98 15 97 Facial 45 05/08/18 16:00 98.3 95 18 133/83 (100) 99 05/08/18 15:55 96 22 98 Venturi Mask 12.0 50 05/08/18 15:40 95 18 95 Venturi Mask 12.0 50 05/08/18 15:13 92 05/08/18 14:09 99 159/92 Intake and Output 05/08/18 05/09/18 19:00 07:00 Intake Total 650 ml 295 ml Balance 650 ml 295 ml Intake Oral 650 ml 240 ml IV Total 55 ml Laboratory Tests 05/09/18 06:05: White Blood Count 4.9, Red Blood Count 2.76L, Hemoglobin 7.9L, Hematocrit 26.0L , Mean Corpuscular Volume 94, Mean Corpuscular Hemoglobin 28.6, Mean Corpuscular Hemoglobin Concent 30.5L, Red Cell Distribution Width 17.8H, Platelet Count 146L, Mean Platelet Volume 6.3L, Neutrophils (%) (Auto) , Lymphocytes (%) (Auto) , Monocytes (%) (Auto) , Eosinophils (%) (Auto) , Basophils (%) (Auto) , Differential Total Cells Counted 100, Neutrophils % ( Manual) 80H, Lymphocytes % (Manual) 5L, Monocytes % (Manual) 10, Eosinophils % ( Manual) 4H, Basophils % (Manual) 1, Band Neutrophils 0, Platelet Estimate DecreasedL, Platelet Morphology Normal, Hypochromasia 3+, Anisocytosis 2+, Prothrombin Time 30.1H, Prothromb Time International Ratio 3.0H, Sodium Level 135L, Potassium Level 5.1, Chloride Level 95L, Carbon Dioxide Level 28, Anion Gap 12, Blood Urea Nitrogen 85H, Creatinine 10.9H, Estimat Glomerular Filtration Rate 5.8, Glucose Level 103, Calcium Level 8.9 Height (Feet): 5 Height (Inches): 7.00 Weight (Pounds): 290 Cardiovascular: normal rate Respiratory/Chest: lungs clear Extremities: moderate edema Johan Harper MD May 09, 2018 12:24
--- NOTE | 2018-05-09 13:05 | Podiatric Progress Note ---
Assessment/Plan Patient Teodoro Gabriel is a 67 year old male who was admitted on Apr 23, 2018 at 19:18 with Assessment/Plan (1) Diabetic foot infection (2) ESRD (end stage renal disease) (3) Diabetic infection of left foot (4) Achilles tendon infection (5) PVD (peripheral vascular disease) (6) HTN (hypertension) (7) Acute DVT (deep venous thrombosis) (8) Acute osteomyelitis of metatarsal bone of left foot Assessment/Plan - Pt seen and evaluated. - Chart reviewed. - Wet to dry dressing applied to achilles. Recommend wound vac to posterior heel. - Betadine dressing to TMA dehiscence stump. - No acute surgical intervention is required at this time. - Pt is stable from podiatry perspective. - Recommend local wound care to LLE. - Pt awaiting discharge to SNF. - Pod cont to monitor. Subjective Allergies: Coded Allergies: NO KNOWN DRUG ALLERGIES (Verified Allergy, Unknown, 03/06/18) Subjective - Pt seen bedside with nursing staff for Left foot TMA dehiscence with posterior achilles tendon exposure. Pt undergoing dialysis at bedside. Objective Exam Last 24 Hour Vital Signs Date Time Temp Pulse Resp B/P (MAP) Pulse Ox O2 Delivery O2 Flow Rate FiO2 05/09/18 12:00 97.3 95 21 136/76 (96) 97 05/09/18 11:27 90 22 98 Venturi Mask 12.0 50 05/09/18 11:19 93 Venturi Mask 12.0 50 05/09/18 11:19 Venturi Mask 50 05/09/18 11:17 96 21 93 Venturi Mask 12.0 50 05/09/18 09:00 Bi-pap Bi-pap 05/09/18 08:43 132/76 05/09/18 08:00 97.2 92 20 132/76 (94) 98 05/09/18 08:00 98 05/09/18 05:47 92 137/74 05/09/18 05:16 98 17 97 Facial 45 05/09/18 04:00 97.0 89 20 137/74 (95) 99 05/09/18 04:00 92 05/09/18 03:43 92 21 Bi-pap 45 05/09/18 03:41 98 21 97 Bi-pap 45 05/09/18 02:57 95 20 98 Facial 45 05/09/18 00:00 95 05/09/18 00:00 97.3 95 24 129/94 (106) 96 05/08/18 23:35 94 18 98 Venturi Mask 12.0 50 05/08/18 23:26 94 18 96 Venturi Mask 12.0 50 05/08/18 23:15 92 18 97 05/08/18 21:24 97 18 99 Facial 45 05/08/18 21:17 84 153/87 05/08/18 21:00 Bi-pap Bi-pap 05/08/18 20:15 95 17 99 Bi-pap 45 05/08/18 20:04 101 17 98 Bi-pap 45 05/08/18 20:00 92 05/08/18 20:00 98.4 96 20 153/87 (109) 97 05/08/18 20:00 45 05/08/18 19:00 Bi-pap 45 05/08/18 19:00 98 Bi-pap 45 05/08/18 19:00 101 22 98 Facial 45 05/08/18 18:10 133/83 05/08/18 16:19 98 15 97 Facial 45 05/08/18 16:00 98.3 95 18 133/83 (100) 99 05/08/18 15:55 96 22 98 Venturi Mask 12.0 50 05/08/18 15:40 95 18 95 Venturi Mask 12.0 50 05/08/18 15:13 92 05/08/18 14:09 99 159/92 Laboratory Tests Test 05/09/18 06:05 White Blood Count 4.9 K/UL (4.8-10.8) Red Blood Count 2.76 M/UL (4.70-6.10) L Hemoglobin 7.9 G/DL (14.2-18.0) L Hematocrit 26.0 % (42.0-52.0) L Mean Corpuscular Volume 94 FL (80-99) Mean Corpuscular Hemoglobin 28.6 PG (27.0-31.0) Mean Corpuscular Hemoglobin Concent 30.5 G/DL (32.0-36.0) L Red Cell Distribution Width 17.8 % (11.6-14.8) H Platelet Count 146 K/UL (150-450) L Mean Platelet Volume 6.3 FL (6.5-10.1) L Neutrophils (%) (Auto) % (45.0-75.0) Lymphocytes (%) (Auto) % (20.0-45.0) Monocytes (%) (Auto) % (1.0-10.0) Eosinophils (%) (Auto) % (0.0-3.0) Basophils (%) (Auto) % (0.0-2.0) Differential Total Cells Counted 100 Neutrophils % (Manual) 80 % (45-75) H Lymphocytes % (Manual) 5 % (20-45) L Monocytes % (Manual) 10 % (1-10) Eosinophils % (Manual) 4 % (0-3) H Basophils % (Manual) 1 % (0-2) Band Neutrophils 0 % (0-8) Platelet Estimate Decreased L Platelet Morphology Normal Hypochromasia 3+ Anisocytosis 2+ Prothrombin Time 30.1 SEC (9.30-11.50) H Prothromb Time International Ratio 3.0 (0.9-1.1) H Sodium Level 135 MMOL/L (136-145) L Potassium Level 5.1 MMOL/L (3.5-5.1) Chloride Level 95 MMOL/L (98-107) L Carbon Dioxide Level 28 MMOL/L (21-32) Anion Gap 12 mmol/L (5-15) Blood Urea Nitrogen 85 mg/dL (7-18) H Creatinine 10.9 MG/DL (0.55-1.30) H Estimat Glomerular Filtration Rate 5.8 mL/min (>60) Glucose Level 103 MG/DL (74-106) Calcium Level 8.9 MG/DL (8.5-10.1) Microbiology Date/Time Source Procedure Growth Status 04/23/18 16:40 Blood Blood Culture - Final Staphylococcus Sp Coag Neg Complete 04/24/18 13:16 Wound Gram Stain - Final Complete 04/24/18 13:16 Wound Culture - Final Staphylococcus Aureus - Mrsa Usual Skin Marlene Enterobacter Cloacae Complex Complete 04/23/18 18:17 Nasal Nares MRSA Culture - Final NO METHICILLIN RESISTANT STAPH AUREUS... Complete 04/23/18 18:17 Rectum VRE Culture - Final Enterococcus Faecium - Vre Complete 04/23/18 18:17 Rectum - Final NO CARBAPENEM-RESISTANT ENTEROBACTERI... Complete Dermatological Dermatological Narrative Multiple ulceration noted to the L foot. L posterior ankle ulceration is noted with exposed Achillis tendon. +fibrotic tissue, no drainage, pus or odor noted, no cellulitis was seen. L Distal lateral stump ulceration noted with fibrotic base and biofilm , wound base noted to sub q, no acute SOI are noted. No active drainage noted. L medial stump smaller wound extended to subq , wound base noted to sub q, no acute SOI are noted. No active drainage noted. Rajat Powell DPM May 09, 2018 13:05
--- NOTE | 2018-05-09 13:26 | General Progress Note ---
Assessment/Plan Assessment/Plan # DVT of the deep veins superficial and politeal of the left leg, thrombocytopenia likely due to hep B chronic status --> VQ scan shows low probability of PE --> remains with anemia and low platelets therefore contraindication for anticoagulation --> will hold off on IVC filter --> continue coumadin inr goal 2-3 --> Cards and pulm recs appreciated as well as renal, vasc --> only if h/h drops, reconsider ivc filter, but currently doing well on coumadin # Thrombocytopenia -- plt goal >20k, transfuse as required, hepatitis B chronic infection --> plt trend in the 66k-->63k-->58k-->60k-->120k-->170k --> hep B noted and if no change in plt, consider anticoagulation --> coumadin okay to continue # Anemia of iron deficiency --> started on iron and epogen --> anemia panel has been reviewed --> hgb goal >7, transfuse as needed --> peripheral smear to be reviewed # Chronic hepatitis B -- appears to be chronic though need to confirm --> hep b surface antigen is postiive which means has chronic hepatitis B --> hep B surface antibody negative which means does not have immunity # Acute CHF exacerbation/pulmonary edema --> as per pulm # COPD w/o obvious exacerbation # CHU # ESRD on HD --> hd as per renal # Hx multiple amputations # Diabetic foot infection --> as per ID Time of note does not necessarily reflect time of encounter Greatly appreciate consultation! Subjective Constitutional: Denies: no symptoms, chills, diaphoresis, fever, malaise, weakness, other HEENT: Denies: no symptoms, eye pain, blurred vision, tearing, double vision, ear pain, ear discharge, nose pain, nose congestion, throat pain, throat swelling, mouth pain, mouth swelling, other Cardiovascular: Denies: no symptoms, chest pain, edema, irregular heart rate, lightheadedness, palpitations, syncope, other Respiratory: Denies: no symptoms, cough, orthopnea, shortness of breath, SOB with excertion, SOB at rest, sputum, stridor, wheezing, other Gastrointestinal/Abdominal: Denies: no symptoms, abdomen distended, abdominal pain, black stools, tarry stools, blood in stool, constipated, diarrhea, difficulty swallowing, nausea, poor appetite, poor fluid intake, rectal bleeding , vomiting, other Genitourinary: Denies: no symptoms, burning, discharge, frequency, flank pain, hematuria, incontinence, pain, urgency, other Neurologic/Psychiatric: Denies: no symptoms, anxiety, depressed, emotional problems, headache, numbness, paresthesia, pre-existing deficit, seizure, tingling, tremors, weakness, other Endocrine: Denies: no symptoms, excessive sweating, flushing, intolerance to cold, intolerance to heat, increased hunger, increased thirst, increased urine, unexplained weight gain, unexplained weight loss, other Hematologic/Lymphatic: Denies: no symptoms, anemia, easy bleeding, easy bruising, other Allergies: Coded Allergies: NO KNOWN DRUG ALLERGIES (Verified Allergy, Unknown, 03/06/18) Subjective 04/26: no events, potential plan for ivc f on sunday.12: no further ivc filter planned, started on coumadin inr goal 2-3 04/28: on iron and epogen dw Dr. Harper, continue as per his recs 04/29: awake and comfortable, HD today, On BIPAP and Oxygen. No new events. 04/30: Pt is seen by bedside, Platelets rising, 101 today. Coumadin started. Sleeping with BiPAP, HD tomorrow. 05/01: Pt was transferred to ICU for SVT on BIPAP, complains of less pain and swelling in his left foot, getting HD. 05/02: remains inthe icu, nsr at this time, tolerating coumadin, h/h relatively stable, plt better 05/03: has hepatitis Bs antigen and the ab is negative which means he doesn't have immunity, on coumadin, iron, procrit 05/07: Pt is seen by bedside, awake and alert, getting HD , no events 05/08: no events, no night sweats, tolerating anticoag well 05/09: Pt is awake and comfortable, on bipap, no acute distress. Objective Last 24 Hour Vital Signs Date Time Temp Pulse Resp B/P (MAP) Pulse Ox O2 Delivery O2 Flow Rate FiO2 05/09/18 12:00 97.3 95 21 136/76 (96) 97 05/09/18 11:27 90 22 98 Venturi Mask 12.0 50 05/09/18 11:19 93 Venturi Mask 12.0 50 05/09/18 11:19 Venturi Mask 50 05/09/18 11:17 96 21 93 Venturi Mask 12.0 50 05/09/18 09:00 Bi-pap Bi-pap 05/09/18 08:43 132/76 05/09/18 08:00 97.2 92 20 132/76 (94) 98 05/09/18 08:00 98 05/09/18 05:47 92 137/74 05/09/18 05:16 98 17 97 Facial 45 05/09/18 04:00 97.0 89 20 137/74 (95) 99 05/09/18 04:00 92 05/09/18 03:43 92 21 Bi-pap 45 05/09/18 03:41 98 21 97 Bi-pap 45 05/09/18 02:57 95 20 98 Facial 45 05/09/18 00:00 95 05/09/18 00:00 97.3 95 24 129/94 (106) 96 05/08/18 23:35 94 18 98 Venturi Mask 12.0 50 05/08/18 23:26 94 18 96 Venturi Mask 12.0 50 05/08/18 23:15 92 18 97 05/08/18 21:24 97 18 99 Facial 45 05/08/18 21:17 84 153/87 05/08/18 21:00 Bi-pap Bi-pap 05/08/18 20:15 95 17 99 Bi-pap 45 05/08/18 20:04 101 17 98 Bi-pap 45 05/08/18 20:00 92 05/08/18 20:00 98.4 96 20 153/87 (109) 97 05/08/18 20:00 45 05/08/18 19:00 Bi-pap 45 05/08/18 19:00 98 Bi-pap 45 05/08/18 19:00 101 22 98 Facial 45 05/08/18 18:10 133/83 05/08/18 16:19 98 15 97 Facial 45 05/08/18 16:00 98.3 95 18 133/83 (100) 99 05/08/18 15:55 96 22 98 Venturi Mask 12.0 50 05/08/18 15:40 95 18 95 Venturi Mask 12.0 50 05/08/18 15:13 92 05/08/18 14:09 99 159/92 Intake and Output 05/08/18 05/09/18 19:00 07:00 Intake Total 650 ml 295 ml Balance 650 ml 295 ml Intake Oral 650 ml 240 ml IV Total 55 ml Laboratory Tests 05/09/18 06:05: White Blood Count 4.9, Red Blood Count 2.76L, Hemoglobin 7.9L, Hematocrit 26.0L , Mean Corpuscular Volume 94, Mean Corpuscular Hemoglobin 28.6, Mean Corpuscular Hemoglobin Concent 30.5L, Red Cell Distribution Width 17.8H, Platelet Count 146L, Mean Platelet Volume 6.3L, Neutrophils (%) (Auto) , Lymphocytes (%) (Auto) , Monocytes (%) (Auto) , Eosinophils (%) (Auto) , Basophils (%) (Auto) , Differential Total Cells Counted 100, Neutrophils % ( Manual) 80H, Lymphocytes % (Manual) 5L, Monocytes % (Manual) 10, Eosinophils % ( Manual) 4H, Basophils % (Manual) 1, Band Neutrophils 0, Platelet Estimate DecreasedL, Platelet Morphology Normal, Hypochromasia 3+, Anisocytosis 2+, Prothrombin Time 30.1H, Prothromb Time International Ratio 3.0H, Sodium Level 135L, Potassium Level 5.1, Chloride Level 95L, Carbon Dioxide Level 28, Anion Gap 12, Blood Urea Nitrogen 85H, Creatinine 10.9H, Estimat Glomerular Filtration Rate 5.8, Glucose Level 103, Calcium Level 8.9 Height (Feet): 5 Height (Inches): 7.00 Weight (Pounds): 290 Objective Gen: NAD HEAD AND NECK: No JVD. LUNGS: Decreased breath sounds. CARDIOVASCULAR: Regular S1 and S2 with no gallop. ABDOMEN: Soft. EXTREMITIES: Status post multiple amputations, 2+ lower extremity edema. L thigh shunt Juve Soto MD May 09, 2018 13:26
--- NOTE | 2018-05-09 14:34 | Cardiac Electrophysiology PN ---
Assessment/Plan Status Narrative Normal left ventricular chamber size, systolic function and wall motion. Left ventricular ejection fraction estimated to be 60-65 %. Moderate left ventricular hypertrophy by 2-D. Small posterior pericardial effusion. Moderate left atrial enlargement. Mild right atrial enlargement. Right ventricular chamber size is within normal limits. Moderate aortic valve calcification with decreased cusp excursion c/w aortic stenosis. Moderately thickened mitral valve leaflets with normal excursion. Mitral annulus and aortic root calcification. Pulmonic valve not well visualized. Normal tricuspid valve structure. IVC dilated at 2.4 cm with slight physiologic collapse suggestive of in Assessment/Plan 1. Congestive heart failure. BNP > 35,000.On hemodialysis 2. Troponin leak due to renal failure. No chest pain. Echocardiogram EF 65%. 3. Hypertension. On hemodialysis, clonidine 0.2 mg bid and Cardizem 90 po q 8 hr 4. Sustained SVT at rate 170. Continue Cardizem 90 po q 8 hr 5. Nonsustained VT. No syncope, EF Normal. No further 6. Peripheral vascular disease left metatarsal and finger amputations 7. Respiratory failure/ COPD. On BIPAP 8. Acute left leg DVT on heparin drip and Coumadin per Rx. INR 2.6 9. Lower extremity cellulitis, on iv Abx per ID 10. Morbid obesity. 11. ESRD on HD DW RN Subjective Subjective In SR .On BIPAP getting HD. No further VT Objective Last 24 Hour Vital Signs Date Time Temp Pulse Resp B/P (MAP) Pulse Ox O2 Delivery O2 Flow Rate FiO2 05/09/18 12:00 97.3 95 21 136/76 (96) 97 05/09/18 12:00 97 05/09/18 11:27 90 22 98 Venturi Mask 12.0 50 05/09/18 11:19 93 Venturi Mask 12.0 50 05/09/18 11:19 Venturi Mask 50 05/09/18 11:17 96 21 93 Venturi Mask 12.0 50 05/09/18 09:00 Bi-pap Bi-pap 05/09/18 08:43 132/76 05/09/18 08:00 97.2 92 20 132/76 (94) 98 05/09/18 08:00 98 05/09/18 05:47 92 137/74 05/09/18 05:16 98 17 97 Facial 45 05/09/18 04:00 97.0 89 20 137/74 (95) 99 05/09/18 04:00 92 05/09/18 03:43 92 21 Bi-pap 45 05/09/18 03:41 98 21 97 Bi-pap 45 05/09/18 02:57 95 20 98 Facial 45 05/09/18 00:00 95 05/09/18 00:00 97.3 95 24 129/94 (106) 96 05/08/18 23:35 94 18 98 Venturi Mask 12.0 50 05/08/18 23:26 94 18 96 Venturi Mask 12.0 50 05/08/18 23:15 92 18 97 05/08/18 21:24 97 18 99 Facial 45 05/08/18 21:17 84 153/87 05/08/18 21:00 Bi-pap Bi-pap 05/08/18 20:15 95 17 99 Bi-pap 45 05/08/18 20:04 101 17 98 Bi-pap 45 05/08/18 20:00 92 05/08/18 20:00 98.4 96 20 153/87 (109) 97 05/08/18 20:00 45 05/08/18 19:00 Bi-pap 45 05/08/18 19:00 98 Bi-pap 45 05/08/18 19:00 101 22 98 Facial 45 05/08/18 18:10 133/83 05/08/18 16:19 98 15 97 Facial 45 05/08/18 16:00 98.3 95 18 133/83 (100) 99 05/08/18 15:55 96 22 98 Venturi Mask 12.0 50 05/08/18 15:40 95 18 95 Venturi Mask 12.0 50 05/08/18 15:13 92 Intake and Output 05/08/18 05/09/18 19:00 07:00 Intake Total 650 ml 295 ml Balance 650 ml 295 ml Intake Oral 650 ml 240 ml IV Total 55 ml Laboratory Tests Test 05/09/18 06:05 White Blood Count 4.9 K/UL (4.8-10.8) Red Blood Count 2.76 M/UL (4.70-6.10) L Hemoglobin 7.9 G/DL (14.2-18.0) L Hematocrit 26.0 % (42.0-52.0) L Mean Corpuscular Volume 94 FL (80-99) Mean Corpuscular Hemoglobin 28.6 PG (27.0-31.0) Mean Corpuscular Hemoglobin Concent 30.5 G/DL (32.0-36.0) L Red Cell Distribution Width 17.8 % (11.6-14.8) H Platelet Count 146 K/UL (150-450) L Mean Platelet Volume 6.3 FL (6.5-10.1) L Neutrophils (%) (Auto) % (45.0-75.0) Lymphocytes (%) (Auto) % (20.0-45.0) Monocytes (%) (Auto) % (1.0-10.0) Eosinophils (%) (Auto) % (0.0-3.0) Basophils (%) (Auto) % (0.0-2.0) Differential Total Cells Counted 100 Neutrophils % (Manual) 80 % (45-75) H Lymphocytes % (Manual) 5 % (20-45) L Monocytes % (Manual) 10 % (1-10) Eosinophils % (Manual) 4 % (0-3) H Basophils % (Manual) 1 % (0-2) Band Neutrophils 0 % (0-8) Platelet Estimate Decreased L Platelet Morphology Normal Hypochromasia 3+ Anisocytosis 2+ Prothrombin Time 30.1 SEC (9.30-11.50) H Prothromb Time International Ratio 3.0 (0.9-1.1) H Sodium Level 135 MMOL/L (136-145) L Potassium Level 5.1 MMOL/L (3.5-5.1) Chloride Level 95 MMOL/L (98-107) L Carbon Dioxide Level 28 MMOL/L (21-32) Anion Gap 12 mmol/L (5-15) Blood Urea Nitrogen 85 mg/dL (7-18) H Creatinine 10.9 MG/DL (0.55-1.30) H Estimat Glomerular Filtration Rate 5.8 mL/min (>60) Glucose Level 103 MG/DL (74-106) Calcium Level 8.9 MG/DL (8.5-10.1) Objective HEAD AND NECK: Positive JVD. LUNGS: Coarse Rhonchi CARDIOVASCULAR: Regular S1 and S2 with no gallop. ABDOMEN: Soft. Obese EXTREMITIES: Status post right hand and Left foot amputation with 2 plus edema Shelton Perdomo MD May 09, 2018 14:34
--- NOTE | 2018-05-09 14:45 | Pulmonology Progress Note ---
Assessment/Plan Assessment/Plan Problem List: 1. Diabetic foot infection 2. Acute diastolic CHF exacerbation/pulmonary edema 3. COPD w/o obvious exacerbation 4. CHU 5. ESRD on HD 6. Hx multiple amputations 7. Thrombocytopenia 8. Anemia 9. L leg DVT 10. HTN - uncontrolled 11. SVT Plan: Abx per ID Podiatric wound care/debridement as needed Monitor volumes, cont volume removed with HD Stressed fluid restriction Aggressive BP control Duonebs q6 Cont CPAP 10 cm H2O Cont coumadin No plans for IVC filter CT chest w/o contrast eval persistent dyspnea Case d/w Dr. Harper and RN Subjective ROS Limited/Unobtainable: No Interval Events: still short of breath. HD again today Constitutional: Reports: no symptoms HEENT: Repors: no symptoms Respiratory: Reports: shortness of breath Cardiovascular: Reports: no symptoms Gastrointestinal/Abdominal: Reports: no symptoms Allergies: Coded Allergies: NO KNOWN DRUG ALLERGIES (Verified Allergy, Unknown, 03/06/18) Objective Last 24 Hour Vital Signs Date Time Temp Pulse Resp B/P (MAP) Pulse Ox O2 Delivery O2 Flow Rate FiO2 05/09/18 12:00 97.3 95 21 136/76 (96) 97 05/09/18 12:00 97 05/09/18 11:27 90 22 98 Venturi Mask 12.0 50 05/09/18 11:19 93 Venturi Mask 12.0 50 05/09/18 11:19 Venturi Mask 50 05/09/18 11:17 96 21 93 Venturi Mask 12.0 50 05/09/18 09:00 Bi-pap Bi-pap 05/09/18 08:43 132/76 05/09/18 08:00 97.2 92 20 132/76 (94) 98 05/09/18 08:00 98 05/09/18 05:47 92 137/74 05/09/18 05:16 98 17 97 Facial 45 05/09/18 04:00 97.0 89 20 137/74 (95) 99 05/09/18 04:00 92 05/09/18 03:43 92 21 Bi-pap 45 05/09/18 03:41 98 21 97 Bi-pap 45 05/09/18 02:57 95 20 98 Facial 45 05/09/18 00:00 95 05/09/18 00:00 97.3 95 24 129/94 (106) 96 1/23/19 23:35 94 18 98 Venturi Mask 12.0 50 05/08/18 23:26 94 18 96 Venturi Mask 12.0 50 05/08/18 23:15 92 18 97 05/08/18 21:24 97 18 99 Facial 45 05/08/18 21:17 84 153/87 05/08/18 21:00 Bi-pap Bi-pap 05/08/18 20:15 95 17 99 Bi-pap 45 05/08/18 20:04 101 17 98 Bi-pap 45 05/08/18 20:00 92 05/08/18 20:00 98.4 96 20 153/87 (109) 97 05/08/18 20:00 45 05/08/18 19:00 Bi-pap 45 05/08/18 19:00 98 Bi-pap 45 05/08/18 19:00 101 22 98 Facial 45 05/08/18 18:10 133/83 05/08/18 16:19 98 15 97 Facial 45 05/08/18 16:00 98.3 95 18 133/83 (100) 99 05/08/18 15:55 96 22 98 Venturi Mask 12.0 50 05/08/18 15:40 95 18 95 Venturi Mask 12.0 50 05/08/18 15:13 92 Intake and Output 05/08/18 05/09/18 19:00 07:00 Intake Total 650 ml 295 ml Balance 650 ml 295 ml Intake Oral 650 ml 240 ml IV Total 55 ml General Appearance: no acute distress HEENT: mucous membranes moist Respiratory/Chest: crackles/rales Cardiovascular: normal rate, regular rhythm, regularly irregular Abdomen: soft, non tender Extremities: other - improved edema Laboratory Tests 05/09/18 06:05: White Blood Count 4.9, Red Blood Count 2.76L, Hemoglobin 7.9L, Hematocrit 26.0L , Mean Corpuscular Volume 94, Mean Corpuscular Hemoglobin 28.6, Mean Corpuscular Hemoglobin Concent 30.5L, Red Cell Distribution Width 17.8H, Platelet Count 146L, Mean Platelet Volume 6.3L, Neutrophils (%) (Auto) , Lymphocytes (%) (Auto) , Monocytes (%) (Auto) , Eosinophils (%) (Auto) , Basophils (%) (Auto) , Differential Total Cells Counted 100, Neutrophils % ( Manual) 80H, Lymphocytes % (Manual) 5L, Monocytes % (Manual) 10, Eosinophils % ( Manual) 4H, Basophils % (Manual) 1, Band Neutrophils 0, Platelet Estimate DecreasedL, Platelet Morphology Normal, Hypochromasia 3+, Anisocytosis 2+, Prothrombin Time 30.1H, Prothromb Time International Ratio 3.0H, Sodium Level 135L, Potassium Level 5.1, Chloride Level 95L, Carbon Dioxide Level 28, Anion Gap 12, Blood Urea Nitrogen 85H, Creatinine 10.9H, Estimat Glomerular Filtration Rate 5.8, Glucose Level 103, Calcium Level 8.9 Current Medications Medications (Trade) Dose Ordered Sig/Oliverio Route PRN Reason Start Time Stop Time Status Last Admin Dose Admin Acetaminophen (Tylenol) 650 mg Q6H PRN ORAL Mild Pain/Temp > 100.5 05/06/18 23:45 05/23/18 17:40 05/08/18 05:21 Allopurinol (Zyloprim) 100 mg DAILY ORAL 05/07/18 09:00 05/24/18 08:59 05/09/18 08:44 Calcium Carbonate (Tums) 500 mg TIDPRN PRN ORAL Nausea & Vomiting/Dyspepsia 05/07/18 17:45 06/01/18 17:40 Clonidine HCl (Catapres Tab) 0.1 mg Q2H PRN ORAL SBP > 170 05/06/18 23:15 06/01/18 13:14 Clonidine HCl (Catapres tab) 0.2 mg BID ORAL 05/07/18 18:00 06/06/18 17:59 05/08/18 18:10 Collagenase (Santyl) 1 applic DAILY TOPIC 05/07/18 09:00 06/04/18 08:59 05/09/18 08:45 Dextrose (Dextrose 50%) 25 ml Q30M PRN IV Hypoglycemia 05/06/18 23:00 05/23/18 22:59 Dextrose (Dextrose 50%) 50 ml Q30M PRN IV Hypoglycemia 05/06/18 23:00 05/23/18 22:59 Diltiazem HCl (Cardizem) 90 mg EVERY 8 HOURS ORAL 05/07/18 06:00 06/01/18 13:59 05/09/18 05:47 Docusate Sodium (Colace) 100 mg TWICE A DAY ORAL 05/07/18 09:00 05/24/18 08:59 05/09/18 08:45 Epoetin Yung (Procrit (for ESRD on dialysis)) 7,000 units SUN-SUN-SUN SUBQ 05/08/18 21:00 05/29/18 20:59 05/08/18 20:32 Finasteride (Proscar) 5 mg DAILY ORAL 05/07/18 09:00 05/24/18 08:59 05/09/18 08:45 Gabapentin (Neurontin) 300 mg DAILY ORAL 05/07/18 09:00 05/24/18 08:59 05/09/18 08:45 Heparin Sodium (Porcine) (Heparin Sod 1000 units/ml 10ml) 500 unit ONCE PRN IV DIALYSIS USE 05/06/18 23:00 05/11/18 22:59 Heparin Sodium (Porcine) (Heparin Sod 1000 units/ml 10ml) 500 unit ONCE PRN IV DIALYSIS 05/08/18 14:36 05/09/18 23:59 Insulin Aspart (NovoLOG) BEFORE MEALS AND HS SUBQ 05/07/18 06:30 05/24/18 06:29 05/08/18 17:16 Ipratropium [place] (Atrovent) 500 mcg Q4HRT PRN HHN Shortness of Breath 05/07/18 05:48 05/12/18 05:47 05/09/18 11:16 Meropenem 500 mg/ Sodium Chloride 55 ml @ 110 mls/hr Q24H IVPB 05/07/18 21:00 06/04/18 23:00 05/08/18 20:26 Pantoprazole (Protonix) 40 mg ACBREAKFAST ORAL 05/07/18 06:30 06/03/18 06:29 05/09/18 05:47 Sodium Chloride 1,000 ml @ 500 mls/hr Q2H PRN IVLG sbp<90 during hd 05/08/18 14:36 05/09/18 23:59 Tamsulosin HCl (Flomax) 0.4 mg BEDTIME ORAL 05/07/18 21:00 05/23/18 23:44 05/08/18 20:26 Vancomycin HCl (Vanco rx to dose) 1 ea DAILY PRN MISC Per rx protocol 05/07/18 09:00 06/04/18 23:00 Vitamin B Complex/ Vit C/Folic Acid (Nephrovite) 1 tab DAILY ORAL 05/07/18 09:00 05/26/18 08:59 05/09/18 08:44 Warfarin Sodium (Coumadin per pharmacy) 1 ea DAILY PRN MISC Per rx protocol 05/07/18 09:00 05/29/18 08:14 Warfarin Sodium (Coumadin) 4 mg COUMADIN ONCE PO 05/09/18 17:00 05/09/18 17:01 Tyrel Platt MD May 09, 2018 14:45
[2018-05-09 16:00] VITALS: BP 153/82
[2018-05-09] MEDS ORDERED: Warfarin Sodium 4mg PO ONE (17:00)
--- NOTE | 2018-05-09 17:22 | Infectious Diseases Prog Note ---
Assessment/Plan Problems: (1) Acute osteomyelitis of metatarsal bone of left foot Assessment & Plan: left stump wound grew MRSA and Enterobacter cloacae, will continue meropenem and vancomycin treatment for osteomyelitis of the left foot metatarsal bone for 6 weeks. may switch to ertapenem once ready to be discharged to finish his course of treatment for 6 weeks total . EOT 06/09/15 continue local wound care and dressings change as per risk control manager. vascular recommended no revascularization at this point. will treat with iv antibiotics for 6 weeks for his left metatarsal bone osteomyelitis. will follow patient along with risk control manager please monitor weekly labs, while on iv antibiotics with CBC, CMP (2) Achilles tendon infection Assessment & Plan: with open wound, already on wide spectrum antibiotics coverage , continue local wound care and dressings change , podiatry is following (3) Diabetic foot infection Assessment & Plan: continue wide spectrum antibiotics , with tight glycemic control. (4) ESRD (end stage renal disease) Assessment & Plan: on HD , renal is following (5) PVD (peripheral vascular disease) Assessment & Plan: had vascular eval , no need for angioplasty of the left leg as per vascular, on anticoagulation (6) Hepatitis B surface antigen positive Assessment & Plan: suspect due to recent vaccination , rule out active HBV infection, await viral load to confirm (7) Acute dyspnea Assessment & Plan: improving, suspect due to fluids over load, continue aggressive HD , monitor ABG, and CXR , continue BIPAP, pulmonary is following (8) Acute bacterial conjunctivitis Assessment & Plan: S/P moxifloxacin eye drops for 5 days Subjective Constitutional: Reports: no symptoms HEENT: Reports: no symptoms Respiratory: Reports: dry cough Breasts: Reports: no symptoms Cardiovascular: Reports: no symptoms Gastrointestinal/Abdominal: Reports: no symptoms Genitourinary: Reports: no symptoms Neurologic: Reports: no symptoms Psychiatric: Reports: no symptoms Skin: Reports: ulcer Endocrine: Reports: no symptoms Hematologic: Reports: no symptoms Musculoskeletal: Reports: no symptoms Allergies: Coded Allergies: NO KNOWN DRUG ALLERGIES (Verified Allergy, Unknown, 03/06/18) Subjective he was comfortable, laying in bed, on BIPAP, feels better less congested and not short of breath , with less pain and swelling in his left foot, no productive cough Objective Vital Signs Last 24 Hour Vital Signs Date Time Temp Pulse Resp B/P (MAP) Pulse Ox O2 Delivery O2 Flow Rate FiO2 05/09/18 16:00 97.7 94 21 153/82 (105) 95 05/09/18 12:00 97.3 95 21 136/76 (96) 97 05/09/18 12:00 97 05/09/18 11:27 90 22 98 Venturi Mask 12.0 50 05/09/18 11:19 93 Venturi Mask 12.0 50 05/09/18 11:19 Venturi Mask 50 05/09/18 11:17 96 21 93 Venturi Mask 12.0 50 05/09/18 09:00 Bi-pap Bi-pap 05/09/18 08:43 132/76 05/09/18 08:00 97.2 92 20 132/76 (94) 98 05/09/18 08:00 98 05/09/18 05:47 92 137/74 05/09/18 05:16 98 17 97 Facial 45 05/09/18 04:00 97.0 89 20 137/74 (95) 99 05/09/18 04:00 92 05/09/18 03:43 92 21 Bi-pap 45 05/09/18 03:41 98 21 97 Bi-pap 45 05/09/18 02:57 95 20 98 Facial 45 05/09/18 00:00 95 05/09/18 00:00 97.3 95 24 129/94 (106) 96 05/08/18 23:35 94 18 98 Venturi Mask 12.0 50 05/08/18 23:26 94 18 96 Venturi Mask 12.0 50 05/08/18 23:15 92 18 97 05/08/18 21:24 97 18 99 Facial 45 05/08/18 21:17 84 153/87 05/08/18 21:00 Bi-pap Bi-pap 05/08/18 20:15 95 17 99 Bi-pap 45 05/08/18 20:04 101 17 98 Bi-pap 45 05/08/18 20:00 92 05/08/18 20:00 98.4 96 20 153/87 (109) 97 05/08/18 20:00 45 05/08/18 19:00 Bi-pap 45 05/08/18 19:00 98 Bi-pap 45 05/08/18 19:00 101 22 98 Facial 45 05/08/18 18:10 133/83 Height (Feet): 5 Height (Inches): 7.00 Weight (Pounds): 290 General Appearance: WD/WN, no acute distress HEENT: normocephalic, atraumatic, anicteric, mucous membranes moist, PERRL, EOMI, pharynx normal, supple, no JVD Respiratory/Chest: chest wall non-tender, no respiratory distress, no accessory muscle use, decreased breath sounds, crackles/rales Cardiovascular: normal peripheral pulses, normal rate, regular rhythm, no gallop/murmur, no JVD Abdomen: normal bowel sounds, soft, non tender, no organomegaly, non distended , no mass, no scars Extremities: no cyanosis, no clubbing Skin: no rash, no lesions, ulcers Neurologic/Psychiatric: alert, oriented x 3, responsive Lymphatic: no neck adenopathy, no groin adenopathy Musculoskeletal: normal muscle bulk, no effusion Laboratory Tests Test 05/09/18 06:05 White Blood Count 4.9 K/UL (4.8-10.8) Red Blood Count 2.76 M/UL (4.70-6.10) L Hemoglobin 7.9 G/DL (14.2-18.0) L Hematocrit 26.0 % (42.0-52.0) L Mean Corpuscular Volume 94 FL (80-99) Mean Corpuscular Hemoglobin 28.6 PG (27.0-31.0) Mean Corpuscular Hemoglobin Concent 30.5 G/DL (32.0-36.0) L Red Cell Distribution Width 17.8 % (11.6-14.8) H Platelet Count 146 K/UL (150-450) L Mean Platelet Volume 6.3 FL (6.5-10.1) L Neutrophils (%) (Auto) % (45.0-75.0) Lymphocytes (%) (Auto) % (20.0-45.0) Monocytes (%) (Auto) % (1.0-10.0) Eosinophils (%) (Auto) % (0.0-3.0) Basophils (%) (Auto) % (0.0-2.0) Differential Total Cells Counted 100 Neutrophils % (Manual) 80 % (45-75) H Lymphocytes % (Manual) 5 % (20-45) L Monocytes % (Manual) 10 % (1-10) Eosinophils % (Manual) 4 % (0-3) H Basophils % (Manual) 1 % (0-2) Band Neutrophils 0 % (0-8) Platelet Estimate Decreased L Platelet Morphology Normal Hypochromasia 3+ Anisocytosis 2+ Prothrombin Time 30.1 SEC (9.30-11.50) H Prothromb Time International Ratio 3.0 (0.9-1.1) H Sodium Level 135 MMOL/L (136-145) L Potassium Level 5.1 MMOL/L (3.5-5.1) Chloride Level 95 MMOL/L (98-107) L Carbon Dioxide Level 28 MMOL/L (21-32) Anion Gap 12 mmol/L (5-15) Blood Urea Nitrogen 85 mg/dL (7-18) H Creatinine 10.9 MG/DL (0.55-1.30) H Estimat Glomerular Filtration Rate 5.8 mL/min (>60) Glucose Level 103 MG/DL (74-106) Calcium Level 8.9 MG/DL (8.5-10.1) Current Medications Medications (Trade) Dose Ordered Sig/Oliverio Route PRN Reason Start Time Stop Time Status Last Admin Dose Admin Acetaminophen (Tylenol) 650 mg Q6H PRN ORAL Mild Pain/Temp > 100.5 05/06/18 23:45 05/23/18 17:40 05/08/18 05:21 Allopurinol (Zyloprim) 100 mg DAILY ORAL 05/07/18 09:00 05/24/18 08:59 05/09/18 08:44 Calcium Carbonate (Tums) 500 mg TIDPRN PRN ORAL Nausea & Vomiting/Dyspepsia 05/07/18 17:45 06/01/18 17:40 Clonidine HCl (Catapres Tab) 0.1 mg Q2H PRN ORAL SBP > 170 05/06/18 23:15 06/01/18 13:14 Clonidine HCl (Catapres tab) 0.2 mg BID ORAL 05/07/18 18:00 06/06/18 17:59 05/08/18 18:10 Collagenase (Santyl) 1 applic DAILY TOPIC 05/07/18 09:00 06/04/18 08:59 05/09/18 08:45 Dextrose (Dextrose 50%) 25 ml Q30M PRN IV Hypoglycemia 05/06/18 23:00 05/23/18 22:59 Dextrose (Dextrose 50%) 50 ml Q30M PRN IV Hypoglycemia 05/06/18 23:00 05/23/18 22:59 Diltiazem HCl (Cardizem) 90 mg EVERY 8 HOURS ORAL 05/07/18 06:00 06/01/18 13:59 05/09/18 05:47 Docusate Sodium (Colace) 100 mg TWICE A DAY ORAL 05/07/18 09:00 05/24/18 08:59 05/09/18 08:45 Epoetin Yung (Procrit (for ESRD on dialysis)) 7,000 units SUN-SUN-SUN SUBQ 05/08/18 21:00 05/29/18 20:59 05/08/18 20:32 Finasteride (Proscar) 5 mg DAILY ORAL 05/07/18 09:00 05/24/18 08:59 05/09/18 08:45 Gabapentin (Neurontin) 300 mg DAILY ORAL 05/07/18 09:00 05/24/18 08:59 05/09/18 08:45 Heparin Sodium (Porcine) (Heparin Sod 1000 units/ml 10ml) 500 unit ONCE PRN IV DIALYSIS USE 05/06/18 23:00 05/11/18 22:59 Heparin Sodium (Porcine) (Heparin Sod 1000 units/ml 10ml) 500 unit ONCE PRN IV DIALYSIS 05/08/18 14:36 05/09/18 23:59 Insulin Aspart (NovoLOG) BEFORE MEALS AND HS SUBQ 05/07/18 06:30 05/24/18 06:29 05/09/18 15:26 Ipratropium [place] (Atrovent) 500 mcg Q4HRT PRN HHN Shortness of Breath 05/07/18 05:48 05/12/18 05:47 05/09/18 11:16 Meropenem 500 mg/ Sodium Chloride 55 ml @ 110 mls/hr Q24H IVPB 05/07/18 21:00 06/04/18 23:00 05/08/18 20:26 Pantoprazole (Protonix) 40 mg ACBREAKFAST ORAL 05/07/18 06:30 06/03/18 06:29 05/09/18 05:47 Sodium Chloride 1,000 ml @ 500 mls/hr Q2H PRN IVLG sbp<90 during hd 05/08/18 14:36 05/09/18 23:59 Tamsulosin HCl (Flomax) 0.4 mg BEDTIME ORAL 05/07/18 21:00 05/23/18 23:44 05/08/18 20:26 Vancomycin HCl (Vanco rx to dose) 1 ea DAILY PRN MISC Per rx protocol 05/07/18 09:00 06/04/18 23:00 Vitamin B Complex/ Vit C/Folic Acid (Nephrovite) 1 tab DAILY ORAL 05/07/18 09:00 05/26/18 08:59 05/09/18 08:44 Warfarin Sodium (Coumadin per pharmacy) 1 ea DAILY PRN MISC Per rx protocol 05/07/18 09:00 05/29/18 08:14 Jaime Casey M.D. May 09, 2018 17:22
[2018-05-09] MEDS: Norco 5mg/325mg tab ORAL PRN (17:59)
--- NOTE | 2018-05-09 19:20 | NUR ---
HAND-OFF: Report given to Ladi Dejesus RN.
--- NOTE | 2018-05-09 19:32 | NUR ---
NURSE NOTES: Received report from CLEVE Harry. Patient is awake lying semi-rich's; resting comfortably. No signs of acute distress noted; denies pain at this time. On 15L Venturi mask. AOx4; able to make needs known. Checked IV sites; patent and flushed. No erythema, bleeding, or infiltration noted. CPAP at bedside to be used as needed. Bed at lowest position, brakes on, siderails up x3. Call light within reach. Will continue to monitor.
[2018-05-09 20:00] VITALS: BP 160/83
[2018-05-09] MEDS: Meropenem 500 MG in NS 55 ML IVPB SCH (21:40)
[2018-05-09] MEDS: Tamsulosin 0.4mg cap ORAL SCH (21:40)
[2018-05-09] MEDS ORDERED: Vancomycin 500mg/D5W 110ml IVPB ONE ×2 (22:00)
--- NOTE | 2018-05-09 22:01 | General Progress Note ---
Assessment/Plan Assessment/Plan cellulitis osteo myosisits renal failure on dialysis ho chf ho ermias thrombocytopenia dvt vq negative HTN svt pleural effusion abx per ID podiatry fup wound care arterial study noted dw Dr Raygoza, vascular eval from Dr Oliveira apprecated patient with chronic low platelets from ho hepatitis per heme will hold off on ivc filter coumadin per pharmacy doing well fe deficiency anemia, started on iron and epo GI eval appreciated, patient refuses GI workup dialysis dependent pulmonary fup cards fup echo noted on cardizem drip converted to sinus rhythm monior platelets hgb dvt and ulcer prohylaxis dw Dr Platt conidering ct scan of chest to evaluate effusion dw Dr Gallito Platt and Dr Soto as well as Dr Fink who have cleared patient for dc, per dw CM patient will benefit from LTAC awaiting placement Subjective Allergies: Coded Allergies: NO KNOWN DRUG ALLERGIES (Verified Allergy, Unknown, 03/06/18) Subjective above noted feels better breathing better in sinus rhythm using cpap Objective Last 24 Hour Vital Signs Date Time Temp Pulse Resp B/P (MAP) Pulse Ox O2 Delivery O2 Flow Rate FiO2 05/09/18 21:40 100 160/83 05/09/18 20:00 97.5 100 20 160/83 (108) 100 05/09/18 18:56 83 22 99 Facial 45 05/09/18 18:56 Bi-pap 45 05/09/18 18:55 98 Bi-pap 45 05/09/18 18:55 83 21 99 Bi-pap 45 05/09/18 17:40 153/82 05/09/18 16:00 97.7 94 21 153/82 (105) 95 05/09/18 16:00 98 05/09/18 12:00 97.3 95 21 136/76 (96) 97 05/09/18 12:00 97 05/09/18 11:27 90 22 98 Venturi Mask 12.0 50 05/09/18 11:19 93 Venturi Mask 12.0 50 05/09/18 11:19 Venturi Mask 50 05/09/18 11:17 96 21 93 Venturi Mask 12.0 50 05/09/18 09:00 Bi-pap Bi-pap 05/09/18 08:43 132/76 05/09/18 08:00 97.2 92 20 132/76 (94) 98 05/09/18 08:00 98 05/09/18 05:47 92 137/74 05/09/18 05:16 98 17 97 Facial 45 05/09/18 04:00 97.0 89 20 137/74 (95) 99 05/09/18 04:00 92 05/09/18 03:43 92 21 Bi-pap 45 05/09/18 03:41 98 21 97 Bi-pap 45 05/09/18 02:57 95 20 98 Facial 45 05/09/18 00:00 95 05/09/18 00:00 97.3 95 24 129/94 (106) 96 05/08/18 23:35 94 18 98 Venturi Mask 12.0 50 05/08/18 23:26 94 18 96 Venturi Mask 12.0 50 05/08/18 23:15 92 18 97 Intake and Output 05/08/18 05/09/18 19:00 07:00 Intake Total 650 ml 295 ml Balance 650 ml 295 ml Intake Oral 650 ml 240 ml IV Total 55 ml Laboratory Tests 05/09/18 06:05: White Blood Count 4.9, Red Blood Count 2.76L, Hemoglobin 7.9L, Hematocrit 26.0L , Mean Corpuscular Volume 94, Mean Corpuscular Hemoglobin 28.6, Mean Corpuscular Hemoglobin Concent 30.5L, Red Cell Distribution Width 17.8H, Platelet Count 146L, Mean Platelet Volume 6.3L, Neutrophils (%) (Auto) , Lymphocytes (%) (Auto) , Monocytes (%) (Auto) , Eosinophils (%) (Auto) , Basophils (%) (Auto) , Differential Total Cells Counted 100, Neutrophils % ( Manual) 80H, Lymphocytes % (Manual) 5L, Monocytes % (Manual) 10, Eosinophils % ( Manual) 4H, Basophils % (Manual) 1, Band Neutrophils 0, Platelet Estimate DecreasedL, Platelet Morphology Normal, Hypochromasia 3+, Anisocytosis 2+, Prothrombin Time 30.1H, Prothromb Time International Ratio 3.0H, Sodium Level 135L, Potassium Level 5.1, Chloride Level 95L, Carbon Dioxide Level 28, Anion Gap 12, Blood Urea Nitrogen 85H, Creatinine 10.9H, Estimat Glomerular Filtration Rate 5.8, Glucose Level 103, Calcium Level 8.9 05/09/18 18:10: Random Vancomycin Level 19.1 Height (Feet): 5 Height (Inches): 7.00 Weight (Pounds): 290 General Appearance: WD/WN Neck: supple Cardiovascular: normal rate Respiratory/Chest: decreased breath sounds Abdomen: soft Objective left lower extremity dressing intact clean no bleeding Moe Sewell MD May 09, 2018 22:01
[2018-05-10] VITALS: BP 158/99
[2018-05-10 04:00] VITALS: BP 155/89
--- NOTE | 2018-05-10 04:15 | NUR ---
NURSE NOTES: Patient is asleep lying semi-rich's on CPAP; resting comfortably. No signs of acute distress or pain noted at this time.
[2018-05-10] MEDS: dilTIAZem HCl 90mg tab ORAL SCH ×3 (06:01→21:09)
[2018-05-10] MEDS: NovoLOG Insulin Flexpen SUBQ SCH ×4 (06:02→20:53)
--- NOTE | 2018-05-10 07:00 | NUR ---
RESPIRATORY NOTE: pt is alert, recieved on venturi mask 10L 45% no SOB or discomfort noted, no redness or skin tear noted, will continue to monitor the pt
[2018-05-10 07:47] LABS: INR 3.4 (0.9-1.1)
--- NOTE | 2018-05-10 07:48 | NUR ---
HAND-OFF: Report given to CLEVE Lara. Patient is asleep lying high-rich's; resting comfortably. Arousable to shaking. In stable condition.
[2018-05-10 08:00] VITALS: BP 162/79
--- NOTE | 2018-05-10 08:45 | NUR ---
NURSE NOTES: pt in bed in low position, HOB in high fowlers, call light at bedside, bed alarm on for safety as pt is high risk for fall due to weakness and left foot ulcer, call light at bedside, pt Ox4 calm and cooperative, IV sites patent and asymptomatic, pt denies pain, 2 rails up, pt scheduled for CT, pt went down and came back. no s/s of distress or sob noted.
[2018-05-10] MEDS: Allopurinol 100mg Tab ORAL SCH (09:08)
[2018-05-10] MEDS: Nephrovite tab (Rena-Vite) ORAL SCH (09:08)
[2018-05-10] MEDS: cloNIDine 0.2mg Tab ORAL SCH ×2 (09:08→18:39)
[2018-05-10] MEDS: Docusate 100mg cap ORAL SCH ×2 (09:08→17:08)
--- NOTE | 2018-05-10 10:18 | Diagnostic Imaging Report ---
Clinical Indication: Dyspnea Technique: Spiral acquisitions obtained through the chest. No IV contrast utilized, for referring physician request. Multiplanar reconstructions generated. Total dose length product 1298.31 mGycm. CTDIvol(s) 35.96 mGy. Dose reduction achieved using automated exposure control Comparison: none Findings:There is considerable image degradation due to respiratory motion artifact. Moderate to large right, small left pleural effusions are present. This results in compressive atelectasis of a considerable portion of the right lower lobe, and to a lesser extent portions of the left lower lobe. There is bilateral interstitial and airspace edema which is diffuse. Other than the atelectatic lung, no focal dense consolidation is evident. The thyroid is massively enlarged and heterogeneous. This results in mild to moderate narrowing of the mid trachea as it passes by the thyroid. Some debris is also seen in the posterior tracheal lumen at this level. The heart is markedly enlarged. There is a pericardial effusion posteriorly. This measures up to 12 mm in thickness. Prominent but not frankly enlarged mediastinal lymph nodes are present. The main pulmonary artery is dilated, measuring up to 4.3 cm diameter. The right main pulmonary artery is also dilated, measuring 3.3 cm. The left main pulmonary artery measures 3 cm. Somewhat prominent bilateral axillary lymph nodes are noted, particularly on the left. There is asymmetric gynecomastia, more so on the left than on the right. There is considerable skin thickening of the left breast. The included upper abdominal anatomy demonstrates a small amount of ascites fluid. There is some hypertrophy of the left hepatic lobe. The spleen is enlarged, measuring at least 13.7 cm long axis dimension. The gallbladder is distended and may contain small gallstones. There is mild edema of the subcutaneous fat. The bones are unremarkable Impression: Bilateral interstitial and airspace congestion, most likely on the basis of congestive heart failure. Moderate to large right, small left pleural effusions. Resultant basilar pulmonary parenchymal atelectatic changes Marked cardiomegaly Markedly enlarged heterogeneous thyroid, likely multinodular goiter. Consider further evaluation with thyroid ultrasound as clinically indicated Narrowing of the mid trachea related to the above. Debris, likely secretions, also seen in the trachea at this level Dilated pulmonary arteries, consistent with pulmonary arterial hypertension Pericardial effusion Left breast skin thickening, may reflect cellulitis Possible left axillary adenopathy, could be reactive secondary to the above Asymmetric gynecomastia, more so on the left than on the right Left hepatic lobe hypertrophy, could indicate early cirrhotic changes. Correlate with clinical history and findings Splenomegaly Trace ascites Possible gallstones The CT scanner at [facility] is accredited by the [employer] and the scans are performed using protocols designed to limit radiation exposure to as low as reasonably achievable to attain images of sufficient resolution adequate for diagnostic evaluation.
--- NOTE | 2018-05-10 10:39 | Pulmonology Progress Note ---
Assessment/Plan Assessment/Plan Problem List: 1. Diabetic foot infection 2. Acute diastolic CHF exacerbation/pulmonary edema 3. COPD w/o obvious exacerbation 4. CHU 5. ESRD on HD 6. Hx multiple amputations 7. Thrombocytopenia 8. Anemia 9. L leg DVT 10. HTN - uncontrolled 11. SVT 12. R pleural effusion Plan: Abx per ID Podiatric wound care/debridement as needed Monitor volumes, cont volume removed with HD Stressed fluid restriction Aggressive BP control Duonebs q6 Cont CPAP 10 cm H2O Cont coumadin No plans for IVC filter CT chest noted with effusion, will order thoracentesis eval Case d/w Dr. Sewell and RN Subjective ROS Limited/Unobtainable: Yes Interval Events: Breathing better, sleepy. CT done with moderate R effusion Allergies: Coded Allergies: NO KNOWN DRUG ALLERGIES (Verified Allergy, Unknown, 03/06/18) Objective Last 24 Hour Vital Signs Date Time Temp Pulse Resp B/P (MAP) Pulse Ox O2 Delivery O2 Flow Rate FiO2 05/10/18 09:08 162/79 05/10/18 08:04 Bi-pap 10.0 45 05/10/18 08:04 95 Venturi Mask 10.0 45 05/10/18 08:00 98.1 89 16 162/79 (106) 96 05/10/18 08:00 Bi-pap 15.0 Venturi Mask 05/10/18 06:01 101 155/89 05/10/18 05:05 101 21 97 Facial 45 05/10/18 04:00 107 05/10/18 04:00 96.7 91 18 155/89 (111) 91 05/10/18 03:10 84 24 96 05/10/18 01:08 90 23 98 Facial 45 05/10/18 00:00 101 05/10/18 00:00 97.6 92 19 158/99 (118) 96 05/09/18 23:22 85 24 97 05/09/18 21:49 98 22 99 Facial 45 05/09/18 21:40 100 160/83 05/09/18 21:00 Bi-pap 15.0 Venturi Mask 05/09/18 20:00 95 05/09/18 20:00 97.5 100 20 160/83 (108) 100 05/09/18 19:01 86 21 98 Facial 45 05/09/18 18:56 83 22 99 Facial 45 05/09/18 18:56 Bi-pap 45 05/09/18 18:55 98 Bi-pap 45 05/09/18 18:55 83 21 99 Bi-pap 45 05/09/18 17:40 153/82 05/09/18 16:00 97.7 94 21 153/82 (105) 95 05/09/18 16:00 98 05/09/18 12:00 97.3 95 21 136/76 (96) 97 05/09/18 12:00 97 05/09/18 11:27 90 22 98 Venturi Mask 12.0 50 05/09/18 11:19 93 Venturi Mask 12.0 50 05/09/18 11:19 Venturi Mask 50 05/09/18 11:17 96 21 93 Venturi Mask 12.0 50 Intake and Output 05/09/18 05/10/18 18:59 06:59 Intake Total 620 ml 515 ml Balance 620 ml 515 ml Intake Oral 620 ml 350 ml IV Total 165 ml # Voids 2 # Bowel Movements 1 General Appearance: no acute distress HEENT: normocephalic Respiratory/Chest: crackles/rales Cardiovascular: regular rhythm Abdomen: soft, non tender Extremities: other - improved edema Laboratory Tests 05/09/18 18:10: Random Vancomycin Level 19.1 05/10/18 06:00: Prothrombin Time 33.8H, Prothromb Time International Ratio 3.4H Current Medications Medications (Trade) Dose Ordered Sig/Oliverio Route PRN Reason Start Time Stop Time Status Last Admin Dose Admin Acetaminophen (Tylenol) 650 mg Q6H PRN ORAL Mild Pain/Temp > 100.5 05/06/18 23:45 05/23/18 17:40 05/09/18 17:43 Acetaminophen/ Hydrocodone Bitart ([place] 5/325) 1 tab Q4H PRN ORAL Severe Pain (Pain Scale 7-10) 05/09/18 18:00 05/16/18 17:59 05/09/18 17:59 Allopurinol (Zyloprim) 100 mg DAILY ORAL 05/07/18 09:00 05/24/18 08:59 05/10/18 09:08 Calcium Carbonate (Tums) 500 mg TIDPRN PRN ORAL Nausea & Vomiting/Dyspepsia 05/07/18 17:45 06/01/18 17:40 Clonidine HCl (Catapres Tab) 0.1 mg Q2H PRN ORAL SBP > 170 05/06/18 23:15 06/01/18 13:14 Clonidine HCl (Catapres tab) 0.2 mg BID ORAL 05/07/18 18:00 06/06/18 17:59 05/10/18 09:08 Collagenase (Santyl) 1 applic DAILY TOPIC 05/07/18 09:00 06/04/18 08:59 05/10/18 09:47 Dextrose (Dextrose 50%) 25 ml Q30M PRN IV Hypoglycemia 05/06/18 23:00 05/23/18 22:59 Dextrose (Dextrose 50%) 50 ml Q30M PRN IV Hypoglycemia 05/06/18 23:00 05/23/18 22:59 Diltiazem HCl (Cardizem) 90 mg EVERY 8 HOURS ORAL 05/07/18 06:00 06/01/18 13:59 05/10/18 06:01 Docusate Sodium (Colace) 100 mg TWICE A DAY ORAL 05/07/18 09:00 05/24/18 08:59 05/10/18 09:08 Epoetin Yung (Procrit (for ESRD on dialysis)) 7,000 units SUN-SUN-SUN SUBQ 05/08/18 21:00 05/29/18 20:59 05/08/18 20:32 Finasteride (Proscar) 5 mg DAILY ORAL 05/07/18 09:00 05/24/18 08:59 05/10/18 09:08 Gabapentin (Neurontin) 300 mg DAILY ORAL 05/07/18 09:00 05/24/18 08:59 05/10/18 09:08 Heparin Sodium (Porcine) (Heparin Sod 1000 units/ml 10ml) 500 unit ONCE PRN IV DIALYSIS USE 05/06/18 23:00 05/11/18 22:59 Insulin Aspart (NovoLOG) BEFORE MEALS AND HS SUBQ 05/07/18 06:30 05/24/18 06:29 05/10/18 06:02 Ipratropium [place] (Atrovent) 500 mcg Q4HRT PRN HHN Shortness of Breath 05/07/18 05:48 05/12/18 05:47 05/09/18 18:50 Meropenem 500 mg/ Sodium Chloride 55 ml @ 110 mls/hr Q24H IVPB 05/07/18 21:00 06/04/18 23:00 05/09/18 21:40 Pantoprazole (Protonix) 40 mg ACBREAKFAST ORAL 05/07/18 06:30 06/03/18 06:29 05/10/18 06:01 Tamsulosin HCl (Flomax) 0.4 mg BEDTIME ORAL 05/07/18 21:00 05/23/18 23:44 05/09/18 21:40 Vancomycin HCl (Vanco rx to dose) 1 ea DAILY PRN MISC Per rx protocol 05/07/18 09:00 06/04/18 23:00 Vitamin B Complex/ Vit C/Folic Acid (Nephrovite) 1 tab DAILY ORAL 05/07/18 09:00 05/26/18 08:59 05/10/18 09:08 Warfarin Sodium (Coumadin per pharmacy) 1 ea DAILY PRN MISC Per rx protocol 05/07/18 09:00 05/29/18 08:14 Tyrel Platt MD May 10, 2018 10:39
--- NOTE | 2018-05-10 11:48 | NUR ---
Social Service Note Referral faxed to the following facilities for possible LTAC placement: [facility] [phone] (P) [phone] (F) [facility] [phone] (P) [phone] (F). Will follow up.
[2018-05-10] MEDS: Ipratropium 0.02% Inh Soln 2.5ml UD HHN PRN (11:58)
[2018-05-10 12:00] VITALS: BP 185/82
--- NOTE | 2018-05-10 13:06 | General Progress Note ---
Assessment/Plan Assessment/Plan # DVT of the deep veins superficial and politeal of the left leg, thrombocytopenia likely due to hep B chronic status --> VQ scan shows low probability of PE --> remains with anemia and low platelets therefore contraindication for anticoagulation --> will hold off on IVC filter --> continue coumadin inr goal 2-3 --> Cards and pulm recs appreciated as well as renal, vasc --> only if h/h drops, reconsider ivc filter, but currently doing well on coumadin # Thrombocytopenia -- plt goal >20k, transfuse as required, hepatitis B chronic infection --> plt trend in the 66k-->63k-->58k-->60k-->120k-->170k --> hep B noted and if no change in plt, consider anticoagulation --> coumadin okay to continue # Anemia of iron deficiency --> started on iron and epogen --> anemia panel has been reviewed --> hgb goal >7, transfuse as needed --> peripheral smear to be reviewed # Chronic hepatitis B -- appears to be chronic though need to confirm --> hep b surface antigen is postiive which means has chronic hepatitis B --> hep B surface antibody negative which means does not have immunity # Acute CHF exacerbation/pulmonary edema --> as per pulm # COPD w/o obvious exacerbation # CHU # ESRD on HD --> hd as per renal # Hx multiple amputations # Diabetic foot infection --> as per ID Time of note does not necessarily reflect time of encounter Greatly appreciate consultation! Subjective Constitutional: Denies: no symptoms, chills, diaphoresis, fever, malaise, weakness, other HEENT: Denies: no symptoms, eye pain, blurred vision, tearing, double vision, ear pain, ear discharge, nose pain, nose congestion, throat pain, throat swelling, mouth pain, mouth swelling, other Cardiovascular: Denies: no symptoms, chest pain, edema, irregular heart rate, lightheadedness, palpitations, syncope, other Respiratory: Denies: no symptoms, cough, orthopnea, shortness of breath, SOB with excertion, SOB at rest, sputum, stridor, wheezing, other Gastrointestinal/Abdominal: Denies: no symptoms, abdomen distended, abdominal pain, black stools, tarry stools, blood in stool, constipated, diarrhea, difficulty swallowing, nausea, poor appetite, poor fluid intake, rectal bleeding , vomiting, other Genitourinary: Denies: no symptoms, burning, discharge, frequency, flank pain, hematuria, incontinence, pain, urgency, other Neurologic/Psychiatric: Denies: no symptoms, anxiety, depressed, emotional problems, headache, numbness, paresthesia, pre-existing deficit, seizure, tingling, tremors, weakness, other Endocrine: Denies: no symptoms, excessive sweating, flushing, intolerance to cold, intolerance to heat, increased hunger, increased thirst, increased urine, unexplained weight gain, unexplained weight loss, other Hematologic/Lymphatic: Denies: no symptoms, anemia, easy bleeding, easy bruising, other Allergies: Coded Allergies: NO KNOWN DRUG ALLERGIES (Verified Allergy, Unknown, 03/06/18) Subjective 04/26: no events, potential plan for ivc f on sunday.12: no further ivc filter planned, started on coumadin inr goal 2-3 04/28: on iron and epogen dw Dr. Harper, continue as per his recs 04/29: awake and comfortable, HD today, On BIPAP and Oxygen. No new events. 04/30: Pt is seen by bedside, Platelets rising, 101 today. Coumadin started. Sleeping with BiPAP, HD tomorrow. 05/01: Pt was transferred to ICU for SVT on BIPAP, complains of less pain and swelling in his left foot, getting HD. 05/02: remains inthe icu, nsr at this time, tolerating coumadin, h/h relatively stable, plt better 05/03: has hepatitis Bs antigen and the ab is negative which means he doesn't have immunity, on coumadin, iron, procrit 05/07: Pt is seen by bedside, awake and alert, getting HD , no events 05/08: no events, no night sweats, tolerating anticoag well 05/09: Pt is awake and comfortable, on bipap, no acute distress. 05/10: Pt is seen by bedside, had CT today, no events Objective Last 24 Hour Vital Signs Date Time Temp Pulse Resp B/P (MAP) Pulse Ox O2 Delivery O2 Flow Rate FiO2 05/10/18 12:00 97.9 95 16 185/82 (116) 100 05/10/18 12:00 94 21 99 Venturi Mask 10.0 45 05/10/18 09:08 162/79 05/10/18 08:04 Bi-pap 10.0 45 05/10/18 08:04 95 Venturi Mask 10.0 45 05/10/18 08:00 98.1 89 16 162/79 (106) 96 05/10/18 08:00 Bi-pap 15.0 Venturi Mask 05/10/18 07:45 105 05/10/18 06:01 101 155/89 05/10/18 05:05 101 21 97 Facial 45 05/10/18 04:00 107 05/10/18 04:00 96.7 91 18 155/89 (111) 91 05/10/18 03:10 84 24 96 05/10/18 01:08 90 23 98 Facial 45 05/10/18 00:00 101 05/10/18 00:00 97.6 92 19 158/99 (118) 96 05/09/18 23:22 85 24 97 05/09/18 21:49 98 22 99 Facial 45 05/09/18 21:40 100 160/83 05/09/18 21:00 Bi-pap 15.0 Venturi Mask 05/09/18 20:00 95 05/09/18 20:00 97.5 100 20 160/83 (108) 100 05/09/18 19:01 86 21 98 Facial 45 05/09/18 18:56 83 22 99 Facial 45 05/09/18 18:56 Bi-pap 45 05/09/18 18:55 98 Bi-pap 45 05/09/18 18:55 83 21 99 Bi-pap 45 05/09/18 17:40 153/82 05/09/18 16:00 97.7 94 21 153/82 (105) 95 05/09/18 16:00 98 Intake and Output 05/09/18 05/10/18 18:59 06:59 Intake Total 620 ml 515 ml Balance 620 ml 515 ml Intake Oral 620 ml 350 ml IV Total 165 ml # Voids 2 # Bowel Movements 1 Laboratory Tests 05/09/18 18:10: Random Vancomycin Level 19.1 05/10/18 06:00: Prothrombin Time 33.8H, Prothromb Time International Ratio 3.4H Height (Feet): 5 Height (Inches): 7.00 Weight (Pounds): 278 Objective Gen: NAD HEAD AND NECK: No JVD. LUNGS: Decreased breath sounds. CARDIOVASCULAR: Regular S1 and S2 with no gallop. ABDOMEN: Soft. EXTREMITIES: Status post multiple amputations, 2+ lower extremity edema. L thigh shunt Juve Soto MD May 10, 2018 13:06
--- NOTE | 2018-05-10 13:53 | Cardiac Electrophysiology PN ---
Assessment/Plan Status Narrative Normal left ventricular chamber size, systolic function and wall motion. Left ventricular ejection fraction estimated to be 60-65 %. Moderate left ventricular hypertrophy by 2-D. Small posterior pericardial effusion. Moderate left atrial enlargement. Mild right atrial enlargement. Right ventricular chamber size is within normal limits. Moderate aortic valve calcification with decreased cusp excursion c/w aortic stenosis. Moderately thickened mitral valve leaflets with normal excursion. Mitral annulus and aortic root calcification. Pulmonic valve not well visualized. Normal tricuspid valve structure. IVC dilated at 2.4 cm with slight physiologic collapse suggestive of in Assessment/Plan 1. Congestive heart failure. BNP > 35,000. On hemodialysis 2. Troponin leak due to renal failure. No chest pain. Echocardiogram EF 65%. 3. Hypertension. On hemodialysis, clonidine 0.2 mg bid and Cardizem 90 po q 8 hr 4. Sustained SVT at rate 170. Continue Cardizem 90 po q 8 hr 5. Nonsustained VT. No syncope, EF Normal. No further 6. Peripheral vascular disease left metatarsal and finger amputations 7. Respiratory failure/ COPD. On BIPAP 8. Acute left leg DVT. Coumadin held for Thoracentesis 9. Lower extremity cellulitis, on iv Abx per ID 10. Morbid obesity. 11. ESRD on HD 12. Pleural effusion, Thoracentesis pending Sunday LATIA RN Subjective Subjective In SR . Thoracentesis cancelled for high INR more than 3. No further VT Objective Last 24 Hour Vital Signs Date Time Temp Pulse Resp B/P (MAP) Pulse Ox O2 Delivery O2 Flow Rate FiO2 05/10/18 12:00 97.9 95 16 185/82 (116) 100 05/10/18 12:00 94 21 99 Venturi Mask 10.0 45 05/10/18 11:55 93 05/10/18 09:08 162/79 05/10/18 08:04 Bi-pap 10.0 45 05/10/18 08:04 95 Venturi Mask 10.0 45 05/10/18 08:00 98.1 89 16 162/79 (106) 96 05/10/18 08:00 Bi-pap 15.0 Venturi Mask 05/10/18 07:45 105 05/10/18 06:01 101 155/89 05/10/18 05:05 101 21 97 Facial 45 05/10/18 04:00 107 05/10/18 04:00 96.7 91 18 155/89 (111) 91 05/10/18 03:10 84 24 96 05/10/18 01:08 90 23 98 Facial 45 05/10/18 00:00 101 05/10/18 00:00 97.6 92 19 158/99 (118) 96 05/09/18 23:22 85 24 97 05/09/18 21:49 98 22 99 Facial 45 05/09/18 21:40 100 160/83 05/09/18 21:00 Bi-pap 15.0 Venturi Mask 05/09/18 20:00 95 05/09/18 20:00 97.5 100 20 160/83 (108) 100 05/09/18 19:01 86 21 98 Facial 45 05/09/18 18:56 83 22 99 Facial 45 05/09/18 18:56 Bi-pap 45 05/09/18 18:55 98 Bi-pap 45 05/09/18 18:55 83 21 99 Bi-pap 45 05/09/18 17:40 153/82 05/09/18 16:00 97.7 94 21 153/82 (105) 95 05/09/18 16:00 98 Intake and Output 05/09/18 05/10/18 19:00 07:00 Intake Total 620 ml 515 ml Balance 620 ml 515 ml Intake Oral 620 ml 350 ml IV Total 165 ml # Voids 2 # Bowel Movements 1 Laboratory Tests Test 05/09/18 18:10 05/10/18 06:00 Random Vancomycin Level 19.1 ug/mL Prothrombin Time 33.8 SEC (9.30-11.50) H Prothromb Time International Ratio 3.4 (0.9-1.1) H Objective HEAD AND NECK: Positive JVD. LUNGS: Coarse Rhonchi CARDIOVASCULAR: Regular S1 and S2 ABDOMEN: Soft. Obese EXTREMITIES: Status post right hand and Left foot amputation with 2 plus edema Shelton Perdomo MD May 10, 2018 13:53
--- NOTE | 2018-05-10 14:11 | General Progress Note ---
Assessment/Plan Assessment/Plan Assessment - Heme (+) stools - Anemia and thrombocytopenia - DVT - on anticoagulation - Hep B S Ag (+) - DM - PVD - CHU - PVD / amputation - Poor Px Recommendations - Patient appropriately has declined GI w/u - Will follow conservatively - Monitor CBC while on anticoagulation - Replace Fe IV - PPI - if H&H declines on anticoagulation, may need to reconsider IVC filter - Check HBV quantitative PCR - d/c planning per PMD Subjective Allergies: Coded Allergies: NO KNOWN DRUG ALLERGIES (Verified Allergy, Unknown, 03/06/18) Subjective eating better no abd pain (+) BM Objective Last 24 Hour Vital Signs Date Time Temp Pulse Resp B/P (MAP) Pulse Ox O2 Delivery O2 Flow Rate FiO2 05/10/18 12:00 97.9 95 16 185/82 (116) 100 05/10/18 12:00 94 21 99 Venturi Mask 10.0 45 05/10/18 11:55 93 05/10/18 09:08 162/79 05/10/18 08:04 Bi-pap 10.0 45 05/10/18 08:04 95 Venturi Mask 10.0 45 05/10/18 08:00 98.1 89 16 162/79 (106) 96 05/10/18 08:00 Bi-pap 15.0 Venturi Mask 05/10/18 07:45 105 05/10/18 06:01 101 155/89 05/10/18 05:05 101 21 97 Facial 45 05/10/18 04:00 107 05/10/18 04:00 96.7 91 18 155/89 (111) 91 05/10/18 03:10 84 24 96 05/10/18 01:08 90 23 98 Facial 45 05/10/18 00:00 101 05/10/18 00:00 97.6 92 19 158/99 (118) 96 05/09/18 23:22 85 24 97 05/09/18 21:49 98 22 99 Facial 45 05/09/18 21:40 100 160/83 05/09/18 21:00 Bi-pap 15.0 Venturi Mask 05/09/18 20:00 95 05/09/18 20:00 97.5 100 20 160/83 (108) 100 05/09/18 19:01 86 21 98 Facial 45 1/24/19 18:56 83 22 99 Facial 45 05/09/18 18:56 Bi-pap 45 05/09/18 18:55 98 Bi-pap 45 05/09/18 18:55 83 21 99 Bi-pap 45 05/09/18 17:40 153/82 05/09/18 16:00 97.7 94 21 153/82 (105) 95 05/09/18 16:00 98 Intake and Output 05/09/18 05/10/18 19:00 07:00 Intake Total 620 ml 515 ml Balance 620 ml 515 ml Intake Oral 620 ml 350 ml IV Total 165 ml # Voids 2 # Bowel Movements 1 Laboratory Tests 05/09/18 18:10: Random Vancomycin Level 19.1 05/10/18 06:00: Prothrombin Time 33.8H, Prothromb Time International Ratio 3.4H Height (Feet): 5 Height (Inches): 7.00 Weight (Pounds): 278 Objective Obese AA man NCAT coarse BS, ronsuraj RR obese abd nonfocal (+) UE amputations Bee Krueger MD May 10, 2018 14:11
--- NOTE | 2018-05-10 15:42 | Nephrology Progress Note ---
Assessment/Plan Problem List: (1) ESRD (end stage renal disease) (2) Diabetic infection of left foot (3) Acute DVT (deep venous thrombosis) Assessment: LLE (4) PVD (peripheral vascular disease) (5) Anemia Assessment: better (6) Iron deficiency (7) Thrombocytopenia Assessment: worse (8) HTN (hypertension) Assessment: ok Plan HD in AM continue Epogen abxs anticoagulation follow labs predialysis Subjective Subjective using FM Objective Objective Last 24 Hour Vital Signs Date Time Temp Pulse Resp B/P (MAP) Pulse Ox O2 Delivery O2 Flow Rate FiO2 05/10/18 14:40 185/82 05/10/18 14:39 94 185/82 05/10/18 12:00 97.9 95 16 185/82 (116) 100 05/10/18 12:00 94 21 99 Venturi Mask 10.0 45 05/10/18 11:55 93 05/10/18 09:08 162/79 05/10/18 08:04 Bi-pap 10.0 45 05/10/18 08:04 95 Venturi Mask 10.0 45 05/10/18 08:00 98.1 89 16 162/79 (106) 96 05/10/18 08:00 Bi-pap 15.0 Venturi Mask 05/10/18 07:45 105 05/10/18 06:01 101 155/89 05/10/18 05:05 101 21 97 Facial 45 05/10/18 04:00 107 05/10/18 04:00 96.7 91 18 155/89 (111) 91 05/10/18 03:10 84 24 96 05/10/18 01:08 90 23 98 Facial 45 05/10/18 00:00 101 05/10/18 00:00 97.6 92 19 158/99 (118) 96 05/09/18 23:22 85 24 97 05/09/18 21:49 98 22 99 Facial 45 05/09/18 21:40 100 160/83 05/09/18 21:00 Bi-pap 15.0 Venturi Mask 05/09/18 20:00 95 05/09/18 20:00 97.5 100 20 160/83 (108) 100 05/09/18 19:01 86 21 98 Facial 45 05/09/18 18:56 83 22 99 Facial 45 05/09/18 18:56 Bi-pap 45 05/09/18 18:55 98 Bi-pap 45 05/09/18 18:55 83 21 99 Bi-pap 45 05/09/18 17:40 153/82 05/09/18 16:00 97.7 94 21 153/82 (105) 95 05/09/18 16:00 98 Intake and Output 05/09/18 05/10/18 19:00 07:00 Intake Total 620 ml 515 ml Balance 620 ml 515 ml Intake Oral 620 ml 350 ml IV Total 165 ml # Voids 2 # Bowel Movements 1 Laboratory Tests 05/09/18 18:10: Random Vancomycin Level 19.1 05/10/18 06:00: Prothrombin Time 33.8H, Prothromb Time International Ratio 3.4H Height (Feet): 5 Height (Inches): 7.00 Weight (Pounds): 278 Cardiovascular: normal rate Respiratory/Chest: lungs clear Extremities: moderate edema Johan Harper MD May 10, 2018 15:42
--- NOTE | 2018-05-10 15:48 | NUR ---
Social Service Note Referrals received by both [facility] and [facility]. Patient placed on wait list at [facility], possible bed in the beginning of next week. jewelry salesperson Hellen [phone]. Dialysis [facility] T TH Sat 840am chair time [phone]. Will monitor.
--- NOTE | 2018-05-10 15:52 | NUR ---
NURSE NOTES: Changed pt dressing, called [facility] for dialysis 05/11/18 Addendum: 05/10/18 at 1555 by DAVON ZIMMERMAN RN Thoracentesis was rescheduled due to the pt INR 3.4, Md Platt asked to hold coumadin for the weekend and restart after thoracentesis on Sunday05/13/18. Thoracentesis will start on Sunday if the INR is at 1.5 or lower.
[2018-05-10 16:00] VITALS: BP 162/79
[2018-05-10] MEDS ORDERED: Heparin Sod 1000 units/ml 10ml IV PRN (16:00)
[2018-05-10] MEDS ORDERED: NS 275ml ONE (16:46)
[2018-05-10] MEDS ORDERED: NS 500ML ONE (16:46)
[2018-05-10] MEDS ORDERED: Tubing IV Secondary IV ONE (16:46)
--- NOTE | 2018-05-10 17:32 | Infectious Diseases Prog Note ---
Assessment/Plan Problems: (1) Acute osteomyelitis of metatarsal bone of left foot Assessment & Plan: left stump wound grew MRSA and Enterobacter cloacae, will continue meropenem and vancomycin treatment for osteomyelitis of the left foot metatarsal bone for 6 weeks. may switch to ertapenem once ready to be discharged to finish his course of treatment for 6 weeks total . EOT 06/09/15 continue local wound care and dressings change as per staffing administrator. vascular recommended no revascularization at this point. will treat with iv antibiotics for 6 weeks for his left metatarsal bone osteomyelitis. will follow patient along with staffing administrator please monitor weekly labs, while on iv antibiotics with CBC, CMP. (2) Achilles tendon infection Assessment & Plan: with open wound, already on wide spectrum antibiotics coverage , continue local wound care and dressings change , podiatry is following (3) Diabetic foot infection Assessment & Plan: continue wide spectrum antibiotics , with tight glycemic control. (4) ESRD (end stage renal disease) Assessment & Plan: on HD , renal is following (5) PVD (peripheral vascular disease) Assessment & Plan: had vascular eval , no need for angioplasty of the left leg as per vascular, on anticoagulation (6) Hepatitis B surface antigen positive Assessment & Plan: suspect due to recent vaccination , rule out active HBV infection, await viral load to confirm (7) Acute dyspnea Assessment & Plan: improving, suspect due to fluids over load, continue aggressive HD , monitor ABG, and CXR , continue BIPAP, pulmonary is following (8) Acute bacterial conjunctivitis Assessment & Plan: S/P moxifloxacin eye drops for 5 days Subjective Constitutional: Reports: no symptoms HEENT: Reports: no symptoms Respiratory: Reports: no symptoms Breasts: Reports: no symptoms Cardiovascular: Reports: no symptoms Gastrointestinal/Abdominal: Reports: no symptoms Genitourinary: Reports: no symptoms Neurologic: Reports: no symptoms Psychiatric: Reports: no symptoms Skin: Reports: no symptoms Endocrine: Reports: no symptoms Hematologic: Reports: no symptoms Musculoskeletal: Reports: no symptoms Allergies: Coded Allergies: NO KNOWN DRUG ALLERGIES (Verified Allergy, Unknown, 03/06/18) Subjective he was comfortable, laying in bed, on BIPAP, feels better less congested and not short of breath , with less pain and swelling in his left foot, no productive cough Objective Vital Signs Last 24 Hour Vital Signs Date Time Temp Pulse Resp B/P (MAP) Pulse Ox O2 Delivery O2 Flow Rate FiO2 05/10/18 16:00 98.1 89 18 162/79 (106) 96 05/10/18 14:40 185/82 05/10/18 14:39 94 185/82 05/10/18 12:00 97.9 95 16 185/82 (116) 100 05/10/18 12:00 94 21 99 Venturi Mask 10.0 45 05/10/18 11:55 93 05/10/18 09:08 162/79 05/10/18 08:04 Bi-pap 10.0 45 05/10/18 08:04 95 Venturi Mask 10.0 45 05/10/18 08:00 98.1 89 16 162/79 (106) 96 05/10/18 08:00 Bi-pap 15.0 Venturi Mask 05/10/18 07:45 105 05/10/18 06:01 101 155/89 05/10/18 05:05 101 21 97 Facial 45 05/10/18 04:00 107 05/10/18 04:00 96.7 91 18 155/89 (111) 91 05/10/18 03:10 84 24 96 05/10/18 01:08 90 23 98 Facial 45 05/10/18 00:00 101 05/10/18 00:00 97.6 92 19 158/99 (118) 96 05/09/18 23:22 85 24 97 05/09/18 21:49 98 22 99 Facial 45 05/09/18 21:40 100 160/83 05/09/18 21:00 Bi-pap 15.0 Venturi Mask 05/09/18 20:00 95 05/09/18 20:00 97.5 100 20 160/83 (108) 100 05/09/18 19:01 86 21 98 Facial 45 05/09/18 18:56 83 22 99 Facial 45 05/09/18 18:56 Bi-pap 45 05/09/18 18:55 98 Bi-pap 45 05/09/18 18:55 83 21 99 Bi-pap 45 05/09/18 17:40 153/82 Height (Feet): 5 Height (Inches): 7.00 Weight (Pounds): 278 General Appearance: WD/WN, no acute distress HEENT: normocephalic, atraumatic, anicteric, mucous membranes moist, PERRL Respiratory/Chest: chest wall non-tender, no respiratory distress, no accessory muscle use, decreased breath sounds, crackles/rales Cardiovascular: normal peripheral pulses, normal rate, regular rhythm, no gallop/murmur, no JVD Abdomen: normal bowel sounds, soft, non tender, no organomegaly, non distended , no mass, no scars Extremities: no cyanosis, no clubbing Skin: no rash, no lesions, no ulcers Neurologic/Psychiatric: alert, oriented x 3, responsive Lymphatic: no neck adenopathy, no groin adenopathy Musculoskeletal: normal muscle bulk, no effusion Laboratory Tests Test 05/09/18 18:10 05/10/18 06:00 Random Vancomycin Level 19.1 ug/mL Prothrombin Time 33.8 SEC (9.30-11.50) H Prothromb Time International Ratio 3.4 (0.9-1.1) H Current Medications Medications (Trade) Dose Ordered Sig/Oliverio Route PRN Reason Start Time Stop Time Status Last Admin Dose Admin Acetaminophen (Tylenol) 650 mg Q6H PRN ORAL Mild Pain/Temp > 100.5 05/06/18 23:45 05/23/18 17:40 05/09/18 17:43 Acetaminophen/ Hydrocodone Bitart ([place] 5/325) 1 tab Q4H PRN ORAL Severe Pain (Pain Scale 7-10) 05/09/18 18:00 05/16/18 17:59 05/09/18 17:59 Allopurinol (Zyloprim) 100 mg DAILY ORAL 05/07/18 09:00 05/24/18 08:59 05/10/18 09:08 Calcium Carbonate (Tums) 500 mg TIDPRN PRN ORAL Nausea & Vomiting/Dyspepsia 05/07/18 17:45 06/01/18 17:40 Clonidine HCl (Catapres Tab) 0.1 mg Q2H PRN ORAL SBP > 170 05/06/18 23:15 06/01/18 13:14 05/10/18 14:40 Clonidine HCl (Catapres tab) 0.2 mg BID ORAL 05/07/18 18:00 06/06/18 17:59 05/10/18 09:08 Collagenase (Santyl) 1 applic DAILY TOPIC 05/07/18 09:00 06/04/18 08:59 05/10/18 09:47 Dextrose (Dextrose 50%) 25 ml Q30M PRN IV Hypoglycemia 05/06/18 23:00 05/23/18 22:59 Dextrose (Dextrose 50%) 50 ml Q30M PRN IV Hypoglycemia 05/06/18 23:00 05/23/18 22:59 Diltiazem HCl (Cardizem) 90 mg EVERY 8 HOURS ORAL 05/07/18 06:00 06/01/18 13:59 05/10/18 14:39 Docusate Sodium (Colace) 100 mg TWICE A DAY ORAL 05/07/18 09:00 05/24/18 08:59 05/10/18 17:08 Epoetin Yung (Procrit (for ESRD on dialysis)) 7,000 units SUN-SUN-SUN SUBQ 05/08/18 21:00 05/29/18 20:59 05/08/18 20:32 Finasteride (Proscar) 5 mg DAILY ORAL 05/07/18 09:00 05/24/18 08:59 05/10/18 09:08 Gabapentin (Neurontin) 300 mg DAILY ORAL 05/07/18 09:00 05/24/18 08:59 05/10/18 09:08 Heparin Sodium (Porcine) (Heparin Sod 1000 units/ml 10ml) 500 unit ONCE PRN IV DIALYSIS USE 05/06/18 23:00 05/11/18 22:59 Heparin Sodium (Porcine) (Heparin Sod 1000 units/ml 10ml) 2,000 unit ONCE PRN IV FOR HD USE ONLY 05/10/18 16:00 05/11/18 23:59 Insulin Aspart (NovoLOG) BEFORE MEALS AND HS SUBQ 05/07/18 06:30 05/24/18 06:29 05/10/18 17:09 Ipratropium [place] (Atrovent) 500 mcg Q4HRT PRN HHN Shortness of Breath 05/07/18 05:48 05/12/18 05:47 05/10/18 11:58 Meropenem 500 mg/ Sodium Chloride 55 ml @ 110 mls/hr Q24H IVPB 05/07/18 21:00 06/04/18 23:00 05/09/18 21:40 Pantoprazole (Protonix) 40 mg ACBREAKFAST ORAL 05/07/18 06:30 06/03/18 06:29 05/10/18 06:01 Sodium Chloride 1,000 ml @ 500 mls/hr Q2H PRN IVLG sbp<90 during hd 05/10/18 16:00 05/11/18 23:59 Tamsulosin HCl (Flomax) 0.4 mg BEDTIME ORAL 05/07/18 21:00 05/23/18 23:44 05/09/18 21:40 Vancomycin HCl (Vanco rx to dose) 1 ea DAILY PRN MISC Per rx protocol 05/07/18 09:00 06/04/18 23:00 Vitamin B Complex/ Vit C/Folic Acid (Nephrovite) 1 tab DAILY ORAL 05/07/18 09:00 05/26/18 08:59 05/10/18 09:08 Warfarin Sodium (Coumadin per pharmacy) 1 ea DAILY PRN MISC Per rx protocol 05/07/18 09:00 05/29/18 08:14 Jaime Casey M.D. May 10, 2018 17:32
--- NOTE | 2018-05-10 19:07 | NUR ---
HAND-OFF: Report given to Corby Rn.
--- NOTE | 2018-05-10 19:08 | NUR ---
NURSE NOTES: Received report from Cornelia Price RN. Patient in bed AAO x4 with HOB elevated at semifowlers, no complaints of acute pain at this time. Kept clean, dry, and comfortable in bed at all times. IV line intact and patent. Cardiac monitoring in place per protocol. Safety measures in place; siderails x3 up, call light within reach, bed in lowest position, brakes and alarm on at all times. Needs and wants anticipated and attended, will continue plan of care and monitor for any changes noted
--- NOTE | 2018-05-10 19:47 | NUR ---
NURSE NOTES: Called [facility] dialysis to confirm scheduled treatment for tomorrow 05/11/18. Awaiting call back from coordinator. Will continue to monitor.
[2018-05-10 20:00] VITALS: BP 145/88
[2018-05-10] MEDS: Meropenem 500 MG in NS 55 ML IVPB SCH (20:52)
[2018-05-10] MEDS: Tamsulosin 0.4mg cap ORAL SCH (20:53)
[2018-05-10] MEDS: Epogen (for ESRD on dialysis) SUBQ SCH (21:08)
--- NOTE | 2018-05-10 23:02 | NUR ---
NURSE NOTES: Spoke with Juve from [facility] regarding confirmation for tomorrows treatment 05/11/18. Will continue to monitor
[2018-05-11] VITALS: BP 146/86
--- NOTE | 2018-05-11 00:08 | General Progress Note ---
Assessment/Plan Assessment/Plan cellulitis osteo myosisits renal failure on dialysis ho chf ho ermias thrombocytopenia dvt vq negative HTN svt pleural effusion abx per ID podiatry fup wound care arterial study noted dw Dr Raygoza, vascular eval from Dr Oliveira apprecated patient with chronic low platelets from ho hepatitis per heme will hold off on ivc filter coumadin per pharmacy doing well fe deficiency anemia, started on iron and epo GI eval appreciated, patient refuses GI workup dialysis dependent pulmonary fup cards fup echo noted on cardizem drip converted to sinus rhythm monior platelets hgb dvt and ulcer prohylaxis dw Dr Platt conidering ct scan of chest to evaluate effusion dw Dr Gallito Platt and Dr Soto as well as Dr Fink who have cleared patient for dc, per dw CM patient will benefit from LTAC awaiting placement Subjective Allergies: Coded Allergies: NO KNOWN DRUG ALLERGIES (Verified Allergy, Unknown, 03/06/18) Subjective this note reflects my visit with patient on 05/10 above noted feels better breathing better in sinus rhythm using cpap Objective Last 24 Hour Vital Signs Date Time Temp Pulse Resp B/P (MAP) Pulse Ox O2 Delivery O2 Flow Rate FiO2 05/10/18 23:08 89 22 97 Facial 45 05/10/18 21:09 94 145/88 05/10/18 21:00 Bi-pap 15.0 Venturi Mask 05/10/18 21:00 99 19 97 Facial 45 05/10/18 20:00 92 05/10/18 20:00 97.0 94 18 145/88 (107) 98 05/10/18 18:39 162/79 05/10/18 18:35 96 Venturi Mask 10.0 45 05/10/18 18:35 101 22 96 Facial 45 05/10/18 18:35 Bi-pap 10.0 45 05/10/18 16:00 98.1 89 18 162/79 (106) 96 05/10/18 15:30 91 05/10/18 14:40 185/82 05/10/18 14:39 94 185/82 05/10/18 12:00 97.9 95 16 185/82 (116) 100 05/10/18 12:00 94 21 99 Venturi Mask 10.0 45 05/10/18 11:55 93 05/10/18 09:08 162/79 05/10/18 08:04 Bi-pap 10.0 45 05/10/18 08:04 95 Venturi Mask 10.0 45 05/10/18 08:00 98.1 89 16 162/79 (106) 96 05/10/18 08:00 Bi-pap 15.0 Venturi Mask 05/10/18 07:45 105 05/10/18 06:01 101 155/89 05/10/18 05:05 101 21 97 Facial 45 05/10/18 04:00 107 05/10/18 04:00 96.7 91 18 155/89 (111) 91 05/10/18 03:10 84 24 96 05/10/18 01:08 90 23 98 Facial 45 Intake and Output 05/10/18 05/11/18 19:00 07:00 Intake Total 720 ml Balance 720 ml Intake Oral 720 ml # Voids 2 # Bowel Movements 1 Laboratory Tests 05/10/18 06:00: Prothrombin Time 33.8H, Prothromb Time International Ratio 3.4H Height (Feet): 5 Height (Inches): 7.00 Weight (Pounds): 278 General Appearance: WD/WN Neck: supple Cardiovascular: normal rate Respiratory/Chest: decreased breath sounds Abdomen: soft Objective left lower extremity dressing intact clean no bleeding Moe Sewell MD May 11, 2018 00:08
--- NOTE | 2018-05-11 02:14 | NUR ---
NURSE NOTES: Patient asleep in bed with no S/S of distress at this time. Will continue to monitor
[2018-05-11] MEDS: Ipratropium 0.02% Inh Soln 2.5ml UD HHN PRN ×5 (03:41→23:48)
[2018-05-11 04:00] VITALS: BP 155/85
[2018-05-11] MEDS: NovoLOG Insulin Flexpen SUBQ SCH ×4 (05:52→21:01)
[2018-05-11] MEDS: dilTIAZem HCl 90mg tab ORAL SCH ×4 (05:53→21:07)
[2018-05-11] MEDS: Norco 5mg/325mg tab ORAL PRN ×2 (06:01→21:11)
--- NOTE | 2018-05-11 07:01 | NUR ---
HAND-OFF: Report given to Cornelia Price RN. Patient in bed asleep in stable condition, endorsed plan of care.
--- NOTE | 2018-05-11 07:01 | NUR ---
Received Patient on Venturi mask 10LPM 45% Fio2. Bipap at bedside. Will continue to monitor.
--- NOTE | 2018-05-11 07:19 | NUR ---
NURSE NOTES: Pt in bed with HOB in fowlers and in a low position, bed alarm on, commode at bedside, call light at bedside, pt makes needs known Ox4, CPAP on, pt awake and alert watching TV and breakfast at bedside, Pt is scheduled for hemodialysis, pt is calm and cooperative, per Md Platt to hold Coumadin until after thoracentesis INR high, pt denies pain, no s/s of distress but SOB is noted and md is aware. Addendum: 05/11/18 at 0730 by DAVON ZIMMERMAN RN Pt refused blood draw, will attempt later in the day
--- NOTE | 2018-05-11 07:34 | General Progress Note ---
Assessment/Plan Assessment/Plan Assessment - Heme (+) stools - Anemia and thrombocytopenia - DVT - on anticoagulation - Hep B S Ag (+) - DM - PVD - CHU - PVD / amputation - Poor Px Recommendations - Patient appropriately has declined GI procedures -repeat stool ob - Will follow conservatively - Monitor CBC while on anticoagulation - Replace Fe IV - PPI - if H&H declines on anticoagulation, may need to reconsider IVC filter - Check HBV quantitative PCR - d/c planning per PMD Subjective ROS Limited/Unobtainable: Yes Allergies: Coded Allergies: NO KNOWN DRUG ALLERGIES (Verified Allergy, Unknown, 03/06/18) Subjective no event Objective Last 24 Hour Vital Signs Date Time Temp Pulse Resp B/P (MAP) Pulse Ox O2 Delivery O2 Flow Rate FiO2 05/11/18 07:14 89 20 97 Venturi Mask 10.0 45 05/11/18 07:13 94 Venturi Mask 10.0 45 05/11/18 07:13 Bi-pap 10.0 45 05/11/18 07:04 87 18 94 Venturi Mask 10.0 45 05/11/18 04:00 92 05/11/18 04:00 97.4 95 18 155/85 (108) 97 05/11/18 03:57 92 22 100 Bi-pap 45 05/11/18 03:41 95 21 95 Bi-pap 45 05/11/18 03:31 80 23 97 Facial 45 05/11/18 01:00 80 23 98 Facial 45 05/11/18 00:00 97.9 97 17 146/86 (106) 99 05/11/18 00:00 92 05/10/18 23:08 89 22 97 Facial 45 05/10/18 21:09 94 145/88 05/10/18 21:00 Bi-pap 15.0 Venturi Mask 05/10/18 21:00 99 19 97 Facial 45 05/10/18 20:00 92 05/10/18 20:00 97.0 94 18 145/88 (107) 98 05/10/18 18:39 162/79 05/10/18 18:35 96 Venturi Mask 10.0 45 05/10/18 18:35 101 22 96 Facial 45 05/10/18 18:35 Bi-pap 10.0 45 05/10/18 16:00 98.1 89 18 162/79 (106) 96 05/10/18 15:30 91 05/10/18 14:40 185/82 05/10/18 14:39 94 185/82 05/10/18 12:00 97.9 95 16 185/82 (116) 100 05/10/18 12:00 94 21 99 Venturi Mask 10.0 45 05/10/18 11:55 93 05/10/18 09:08 162/79 05/10/18 08:04 Bi-pap 10.0 45 05/10/18 08:04 95 Venturi Mask 10.0 45 05/10/18 08:00 98.1 89 16 162/79 (106) 96 05/10/18 08:00 Bi-pap 15.0 Venturi Mask 05/10/18 07:45 105 Intake and Output 05/10/18 05/11/18 19:00 07:00 Intake Total 720 ml Balance 720 ml Intake Oral 720 ml # Voids 2 1 # Bowel Movements 1 1 Height (Feet): 5 Height (Inches): 7.00 Weight (Pounds): 278 General Appearance: no apparent distress EENT: normal ENT inspection Neck: supple Cardiovascular: normal rate Respiratory/Chest: decreased breath sounds Abdomen: normal bowel sounds, non tender, soft Extremities: non-tender Lior Pinedo MD May 11, 2018 07:34
[2018-05-11 08:00] VITALS: BP 170/91
--- NOTE | 2018-05-11 08:00 | NUR ---
PT placed back on CPAP 10. MARYA well.
[2018-05-11] MEDS: cloNIDine 0.2mg Tab ORAL SCH ×2 (08:47→18:00)
[2018-05-11] MEDS: Allopurinol 100mg Tab ORAL SCH (08:48)
[2018-05-11] MEDS: Nephrovite tab (Rena-Vite) ORAL SCH (08:48)
[2018-05-11] MEDS: Docusate 100mg cap ORAL SCH ×2 (08:49→18:00)
[2018-05-11 12:00] VITALS: BP 133/79
--- NOTE | 2018-05-11 14:33 | Infectious Diseases Prog Note ---
Assessment/Plan Problems: (1) Acute osteomyelitis of metatarsal bone of left foot Assessment & Plan: left stump wound grew MRSA and Enterobacter cloacae, will continue meropenem and vancomycin treatment for osteomyelitis of the left foot metatarsal bone for 6 weeks. may switch to ertapenem once ready to be discharged to finish his course of treatment for 6 weeks total . EOT 06/09/15 continue local wound care and dressings change as per tankage grinder. vascular recommended no revascularization at this point. will treat with iv antibiotics for 6 weeks for his left metatarsal bone osteomyelitis. will follow patient along with tankage grinder please monitor weekly labs, while on iv antibiotics with CBC, CMP. please continue to follow up with tankage grinder at the wound care center (2) Achilles tendon infection Assessment & Plan: with open wound, already on wide spectrum antibiotics coverage , continue local wound care and dressings change , podiatry is following (3) Diabetic foot infection Assessment & Plan: continue wide spectrum antibiotics , with tight glycemic control. (4) ESRD (end stage renal disease) Assessment & Plan: on HD , renal is following (5) PVD (peripheral vascular disease) Assessment & Plan: had vascular eval , no need for angioplasty of the left leg as per vascular, on anticoagulation (6) Hepatitis B surface antigen positive Assessment & Plan: suspect due to recent vaccination , rule out active HBV infection, await viral load to confirm (7) Acute dyspnea Assessment & Plan: improving, suspect due to fluids over load, continue aggressive HD , monitor ABG, and CXR , continue BIPAP as needed , pulmonary is following Subjective Constitutional: Reports: no symptoms HEENT: Reports: no symptoms Respiratory: Reports: no symptoms Breasts: Reports: no symptoms Cardiovascular: Reports: no symptoms Gastrointestinal/Abdominal: Reports: no symptoms Genitourinary: Reports: no symptoms Neurologic: Reports: no symptoms Psychiatric: Reports: no symptoms Skin: Reports: no symptoms Endocrine: Reports: no symptoms Hematologic: Reports: no symptoms Musculoskeletal: Reports: no symptoms Allergies: Coded Allergies: NO KNOWN DRUG ALLERGIES (Verified Allergy, Unknown, 03/06/18) Subjective he was comfortable, laying in bed, on BIPAP, feels better less congested and not short of breath , with less pain and swelling in his left foot, no productive cough Objective Vital Signs Last 24 Hour Vital Signs Date Time Temp Pulse Resp B/P (MAP) Pulse Ox O2 Delivery O2 Flow Rate FiO2 05/11/18 14:22 92 24 95 Facial 45 05/11/18 13:04 91 22 98 Venturi Mask 10.0 45 05/11/18 12:55 92 22 96 Venturi Mask 10.0 45 05/11/18 12:00 97.0 92 20 133/79 (97) 97 05/11/18 11:52 93 05/11/18 11:07 78 13 97 Facial 45 05/11/18 08:58 87 17 98 Facial 45 05/11/18 08:47 170/91 05/11/18 08:10 Bi-pap 15.0 Venturi Mask 05/11/18 08:00 96.9 95 20 170/91 (117) 98 05/11/18 08:00 98 27 96 Facial 45 05/11/18 07:55 101 05/11/18 07:14 89 20 97 Venturi Mask 10.0 45 05/11/18 07:13 94 Venturi Mask 10.0 45 05/11/18 07:13 Bi-pap 10.0 45 05/11/18 07:04 87 18 94 Venturi Mask 10.0 45 05/11/18 04:00 92 05/11/18 04:00 97.4 95 18 155/85 (108) 97 05/11/18 03:57 92 22 100 Bi-pap 45 05/11/18 03:41 95 21 95 Bi-pap 45 05/11/18 03:31 80 23 97 Facial 45 05/11/18 01:00 80 23 98 Facial 45 05/11/18 00:00 97.9 97 17 146/86 (106) 99 05/11/18 00:00 92 05/10/18 23:08 89 22 97 Facial 45 05/10/18 21:09 94 145/88 05/10/18 21:00 Bi-pap 15.0 Venturi Mask 05/10/18 21:00 99 19 97 Facial 45 05/10/18 20:00 92 05/10/18 20:00 97.0 94 18 145/88 (107) 98 05/10/18 18:39 162/79 05/10/18 18:35 96 Venturi Mask 10.0 45 05/10/18 18:35 101 22 96 Facial 45 05/10/18 18:35 Bi-pap 10.0 45 05/10/18 16:00 98.1 89 18 162/79 (106) 96 05/10/18 15:30 91 05/10/18 14:40 185/82 05/10/18 14:39 94 [id number] Height (Feet): 5 Height (Inches): 7.00 Weight (Pounds): 278 General Appearance: WD/WN, no acute distress HEENT: normocephalic, atraumatic, anicteric, mucous membranes moist, PERRL, EOMI, pharynx normal, supple, no JVD Respiratory/Chest: chest wall non-tender, no respiratory distress, no accessory muscle use, decreased breath sounds, crackles/rales Cardiovascular: normal peripheral pulses, normal rate, regular rhythm, no gallop/murmur, no JVD Abdomen: normal bowel sounds, soft, non tender, no organomegaly, non distended , no mass, no scars Genitourinary: normal external genitalia Extremities: no cyanosis, no clubbing Skin: no rash, no lesions, no ulcers Neurologic/Psychiatric: alert, oriented x 3, responsive Lymphatic: no neck adenopathy, no groin adenopathy Musculoskeletal: normal muscle bulk, no effusion Current Medications Medications (Trade) Dose Ordered Sig/Oliverio Route PRN Reason Start Time Stop Time Status Last Admin Dose Admin Acetaminophen (Tylenol) 650 mg Q6H PRN ORAL Mild Pain/Temp > 100.5 05/06/18 23:45 05/23/18 17:40 05/09/18 17:43 Acetaminophen/ Hydrocodone Bitart ([place] 5/325) 1 tab Q4H PRN ORAL Severe Pain (Pain Scale 7-10) 05/09/18 18:00 05/16/18 17:59 05/11/18 06:01 Allopurinol (Zyloprim) 100 mg DAILY ORAL 05/07/18 09:00 05/24/18 08:59 05/11/18 08:48 Calcium Carbonate (Tums) 500 mg TIDPRN PRN ORAL Nausea & Vomiting/Dyspepsia 05/07/18 17:45 06/01/18 17:40 Clonidine HCl (Catapres Tab) 0.1 mg Q2H PRN ORAL SBP > 170 05/06/18 23:15 06/01/18 13:14 05/10/18 14:40 Clonidine HCl (Catapres tab) 0.2 mg BID ORAL 05/07/18 18:00 06/06/18 17:59 05/10/18 18:39 Collagenase (Santyl) 1 applic DAILY TOPIC 05/07/18 09:00 06/04/18 08:59 05/11/18 09:08 Dextrose (Dextrose 50%) 25 ml Q30M PRN IV Hypoglycemia 05/06/18 23:00 05/23/18 22:59 Dextrose (Dextrose 50%) 50 ml Q30M PRN IV Hypoglycemia 05/06/18 23:00 05/23/18 22:59 Diltiazem HCl (Cardizem) 90 mg EVERY 8 HOURS ORAL 05/07/18 06:00 06/01/18 13:59 05/10/18 21:09 Docusate Sodium (Colace) 100 mg TWICE A DAY ORAL 05/07/18 09:00 05/24/18 08:59 05/11/18 08:49 Epoetin Yung (Procrit (for ESRD on dialysis)) 7,000 units SUN-SUN-SUN SUBQ 05/08/18 21:00 05/29/18 20:59 05/10/18 21:08 Finasteride (Proscar) 5 mg DAILY ORAL 05/07/18 09:00 05/24/18 08:59 05/11/18 08:48 Gabapentin (Neurontin) 300 mg DAILY ORAL 05/07/18 09:00 05/24/18 08:59 05/11/18 08:48 Heparin Sodium (Porcine) (Heparin Sod 1000 units/ml 10ml) 2,000 unit ONCE PRN IV FOR HD USE ONLY 05/10/18 16:00 05/11/18 23:59 Insulin Aspart (NovoLOG) BEFORE MEALS AND HS SUBQ 05/07/18 06:30 05/24/18 06:29 05/11/18 11:46 Ipratropium [place] (Atrovent) 500 mcg Q4HRT PRN HHN Shortness of Breath 05/07/18 05:48 05/12/18 05:47 05/11/18 13:03 Meropenem 500 mg/ Sodium Chloride 55 ml @ 110 mls/hr Q24H IVPB 05/07/18 21:00 06/04/18 23:00 05/10/18 20:52 Pantoprazole (Protonix) 40 mg ACBREAKFAST ORAL 05/07/18 06:30 06/03/18 06:29 05/11/18 05:53 Sodium Chloride 1,000 ml @ 500 mls/hr Q2H PRN IVLG sbp<90 during hd 05/10/18 16:00 05/11/18 23:59 Tamsulosin HCl (Flomax) 0.4 mg BEDTIME ORAL 05/07/18 21:00 05/23/18 23:44 05/10/18 20:53 Vancomycin HCl (Vanco rx to dose) 1 ea DAILY PRN MISC Per rx protocol 05/07/18 09:00 06/04/18 23:00 Vitamin B Complex/ Vit C/Folic Acid (Nephrovite) 1 tab DAILY ORAL 05/07/18 09:00 05/26/18 08:59 05/11/18 08:48 Warfarin Sodium (Coumadin per pharmacy) 1 ea DAILY PRN MISC Per rx protocol 05/07/18 09:00 05/29/18 08:14 Jaime Casey M.D. May 11, 2018 14:33
--- NOTE | 2018-05-11 14:35 | Cardiac Electrophysiology PN ---
Assessment/Plan Status Narrative Normal left ventricular chamber size, systolic function and wall motion. Left ventricular ejection fraction estimated to be 60-65 %. Moderate left ventricular hypertrophy by 2-D. Small posterior pericardial effusion. Moderate left atrial enlargement. Mild right atrial enlargement. Right ventricular chamber size is within normal limits. Moderate aortic valve calcification with decreased cusp excursion c/w aortic stenosis. Moderately thickened mitral valve leaflets with normal excursion. Mitral annulus and aortic root calcification. Pulmonic valve not well visualized. Normal tricuspid valve structure. IVC dilated at 2.4 cm with slight physiologic collapse suggestive of in Assessment/Plan 1. Congestive heart failure due to diastolic dysfunction with BNP > 35,000. On hemodialysis 2. Troponin leak due to renal failure. No chest pain. EF 65%. 3. Hypertension. On hemodialysis, clonidine 0.2 mg bid and Cardizem 90 po q 8 hr 4. Sustained SVT at rate 170. Continue Cardizem 90 po q 8 hr 5. Nonsustained VT. No syncope, EF Normal. No further 6. Peripheral vascular disease left metatarsal and finger amputations 7. Respiratory failure/ COPD. On BIPAP 8. Acute left leg DVT. Coumadin held for Thoracentesis 9. Lower extremity cellulitis, on iv Abx per ID 10. Morbid obesity. 11. ESRD on HD 12. Pleural effusion, Thoracentesis pending Sunday LATIA RN Subjective Subjective In SR . Thoracentesis postponed till Sunday. No further VT or SVT Objective Last 24 Hour Vital Signs Date Time Temp Pulse Resp B/P (MAP) Pulse Ox O2 Delivery O2 Flow Rate FiO2 05/11/18 14:22 92 24 95 Facial 45 05/11/18 13:04 91 22 98 Venturi Mask 10.0 45 05/11/18 12:55 92 22 96 Venturi Mask 10.0 45 05/11/18 12:00 97.0 92 20 133/79 (97) 97 05/11/18 11:52 93 05/11/18 11:07 78 13 97 Facial 45 05/11/18 08:58 87 17 98 Facial 45 05/11/18 08:47 170/91 05/11/18 08:10 Bi-pap 15.0 Venturi Mask 05/11/18 08:00 96.9 95 20 170/91 (117) 98 05/11/18 08:00 98 27 96 Facial 45 05/11/18 07:55 101 1/26/19 07:14 89 20 97 Venturi Mask 10.0 45 05/11/18 07:13 94 Venturi Mask 10.0 45 05/11/18 07:13 Bi-pap 10.0 45 05/11/18 07:04 87 18 94 Venturi Mask 10.0 45 05/11/18 04:00 92 05/11/18 04:00 97.4 95 18 155/85 (108) 97 05/11/18 03:57 92 22 100 Bi-pap 45 05/11/18 03:41 95 21 95 Bi-pap 45 05/11/18 03:31 80 23 97 Facial 45 05/11/18 01:00 80 23 98 Facial 45 05/11/18 00:00 97.9 97 17 146/86 (106) 99 05/11/18 00:00 92 05/10/18 23:08 89 22 97 Facial 45 05/10/18 21:09 94 145/88 05/10/18 21:00 Bi-pap 15.0 Venturi Mask 05/10/18 21:00 99 19 97 Facial 45 05/10/18 20:00 92 05/10/18 20:00 97.0 94 18 145/88 (107) 98 05/10/18 18:39 162/79 05/10/18 18:35 96 Venturi Mask 10.0 45 05/10/18 18:35 101 22 96 Facial 45 05/10/18 18:35 Bi-pap 10.0 45 05/10/18 16:00 98.1 89 18 162/79 (106) 96 05/10/18 15:30 91 05/10/18 14:40 185/82 05/10/18 14:39 94 185/82 Intake and Output 05/10/18 05/11/18 18:59 06:59 Intake Total 720 ml Balance 720 ml Intake Oral 720 ml # Voids 2 1 # Bowel Movements 1 1 Objective HEAD AND NECK: Positive JVD. LUNGS: Coarse Rhonchi CARDIOVASCULAR: Regular S1 and S2 ABDOMEN: Soft. Obese EXTREMITIES: Status post right hand and Left foot amputation. 2 plus edema Shelton Perdomo MD May 11, 2018 14:35
[2018-05-11 16:00] VITALS: BP 174/95
[2018-05-11 16:15] LABS: HEMATOCRIT 24.4 % (42.0-52.0); HEMOGLOBIN 7.5 G/DL (14.2-18.0); MEAN CORPUSCULAR VOLUME 94 FL (80-99); PLATELET COUNT 117 K/UL (150-450); RED BLOOD COUNT 2.61 M/UL (4.70-6.10); RED CELL DISTRIBUTION WIDTH 18.1 % (11.6-14.8); WHITE BLOOD COUNT 5.1 K/UL (4.8-10.8)
[2018-05-11 16:34] LABS: ANION GAP 14 mmol/L (5-15); BLOOD UREA NITROGEN 59 mg/dL (7-18); CALCIUM 9.3 MG/DL (8.5-10.1); CARBON DIOXIDE 27 MMOL/L (21-32); CHLORIDE 98 MMOL/L (98-107); CREATININE 8.4 MG/DL (0.55-1.30); POTASSIUM 4.3 MMOL/L (3.5-5.1); SODIUM 138 MMOL/L (136-145)
[2018-05-11] MEDS ORDERED: Warfarin Sodium 3mg ORAL SCH (17:00)
[2018-05-11] MEDS ORDERED: Tubing IV Secondary IV ONE (17:06)
[2018-05-11] MEDS ORDERED: NS Irrig 1000ml ONE (17:06)
--- NOTE | 2018-05-11 17:17 | Nephrology Progress Note ---
Assessment/Plan Problem List: (1) ESRD (end stage renal disease) (2) Diabetic infection of left foot (3) Acute DVT (deep venous thrombosis) Assessment: LLE (4) PVD (peripheral vascular disease) (5) Anemia Assessment: better (6) Iron deficiency (7) Thrombocytopenia Assessment: worse (8) HTN (hypertension) Assessment: BP higher Plan [place] [address] units abxs anticoagulation watch BP. needs to be at dry weight before adding meds. Subjective Subjective feels ok Objective Objective Last 24 Hour Vital Signs Date Time Temp Pulse Resp B/P (MAP) Pulse Ox O2 Delivery O2 Flow Rate FiO2 05/11/18 16:47 174/95 05/11/18 16:00 98.1 106 20 174/95 (121) 99 05/11/18 14:46 78 22 99 Facial 45 05/11/18 14:33 92 133/79 05/11/18 14:22 92 24 95 Facial 45 05/11/18 13:04 91 22 98 Venturi Mask 10.0 45 05/11/18 12:55 92 22 96 Venturi Mask 10.0 45 05/11/18 12:00 97.0 92 20 133/79 (97) 97 05/11/18 11:52 93 05/11/18 11:07 78 13 97 Facial 45 05/11/18 08:58 87 17 98 Facial 45 05/11/18 08:47 170/91 05/11/18 08:10 Bi-pap 15.0 Venturi Mask 05/11/18 08:00 96.9 95 20 170/91 (117) 98 05/11/18 08:00 98 27 96 Facial 45 05/11/18 07:55 101 05/11/18 07:14 89 20 97 Venturi Mask 10.0 45 05/11/18 07:13 94 Venturi Mask 10.0 45 05/11/18 07:13 Bi-pap 10.0 45 05/11/18 07:04 87 18 94 Venturi Mask 10.0 45 05/11/18 04:00 92 05/11/18 04:00 97.4 95 18 155/85 (108) 97 05/11/18 03:57 92 22 100 Bi-pap 45 05/11/18 03:41 95 21 95 Bi-pap 45 05/11/18 03:31 80 23 97 Facial 45 05/11/18 01:00 80 23 98 Facial 45 05/11/18 00:00 97.9 97 17 146/86 (106) 99 05/11/18 00:00 92 05/10/18 23:08 89 22 97 Facial 45 05/10/18 21:09 94 145/88 05/10/18 21:00 Bi-pap 15.0 Venturi Mask 05/10/18 21:00 99 19 97 Facial 45 05/10/18 20:00 92 05/10/18 20:00 97.0 94 18 145/88 (107) 98 05/10/18 18:39 162/79 05/10/18 18:35 96 Venturi Mask 10.0 45 05/10/18 18:35 101 22 96 Facial 45 05/10/18 18:35 Bi-pap 10.0 45 Intake and Output 05/10/18 05/11/18 19:00 07:00 Intake Total 720 ml Balance 720 ml Intake Oral 720 ml # Voids 2 1 # Bowel Movements 1 1 Laboratory Tests 05/11/18 15:20: White Blood Count 5.1, Red Blood Count 2.61L, Hemoglobin 7.5L, Hematocrit 24.4L , Mean Corpuscular Volume 94, Mean Corpuscular Hemoglobin 28.8, Mean Corpuscular Hemoglobin Concent 30.8L, Red Cell Distribution Width 18.1H, Platelet Count 117L, Mean Platelet Volume 5.9L, Neutrophils (%) (Auto) , Lymphocytes (%) (Auto) , Monocytes (%) (Auto) , Eosinophils (%) (Auto) , Basophils (%) (Auto) , Neutrophils % (Manual) [Pending], Lymphocytes % (Manual) [Pending], Platelet Estimate [Pending], Platelet Morphology [Pending], Prothrombin Time 29.9H, Prothromb Time International Ratio 3.0H, Sodium Level 138, Potassium Level 4.3, Chloride Level 98, Carbon Dioxide Level 27, Anion Gap 14, Blood Urea Nitrogen 59H, Creatinine 8.4H, Estimat Glomerular Filtration Rate 7.8, Glucose Level 101, Calcium Level 9.3, Random Vancomycin Level 19.9 Height (Feet): 5 Height (Inches): 7.00 Weight (Pounds): 278 Cardiovascular: normal rate Respiratory/Chest: lungs clear Extremities: moderate edema Johan Harper MD May 11, 2018 17:17
--- NOTE | 2018-05-11 17:42 | Pulmonology Progress Note ---
Assessment/Plan Assessment/Plan 1. Diabetic foot infection 2. Acute diastolic CHF exacerbation/pulmonary edema 3. COPD w/o obvious exacerbation 4. CHU 5. ESRD on HD 6. Hx multiple amputations 7. Thrombocytopenia 8. Anemia 9. L leg DVT 10. HTN - uncontrolled 11. SVT 12. R pleural effusion Plan: Abx per ID Podiatric wound care/debridement as needed Monitor volumes, cont volume removed with HD Stressed fluid restriction Aggressive BP control Duonebs q6 Cont CPAP 10 cm H2O Cont coumadin No plans for IVC filter CT chest noted with effusion, will order thoracentesis eval Subjective Constitutional: Reports: no symptoms HEENT: Repors: no symptoms Respiratory: Reports: no symptoms Cardiovascular: Reports: no symptoms Gastrointestinal/Abdominal: Reports: no symptoms Genitourinary: Reports: no symptoms Allergies: Coded Allergies: NO KNOWN DRUG ALLERGIES (Verified Allergy, Unknown, 03/06/18) Subjective on cpap adn tolerating HD today and tolerated well no cp nv or bleeding noted tolerating po no fever minimally oob Objective Last 24 Hour Vital Signs Date Time Temp Pulse Resp B/P (MAP) Pulse Ox O2 Delivery O2 Flow Rate FiO2 05/11/18 16:47 174/95 05/11/18 16:00 98.1 106 20 174/95 (121) 99 05/11/18 15:23 102 05/11/18 14:46 78 22 99 Facial 45 05/11/18 14:33 92 133/79 05/11/18 14:22 92 24 95 Facial 45 05/11/18 13:04 91 22 98 Venturi Mask 10.0 45 05/11/18 12:55 92 22 96 Venturi Mask 10.0 45 05/11/18 12:00 97.0 92 20 133/79 (97) 97 05/11/18 11:52 93 05/11/18 11:07 78 13 97 Facial 45 05/11/18 08:58 87 17 98 Facial 45 05/11/18 08:47 170/91 05/11/18 08:10 Bi-pap 15.0 Venturi Mask 05/11/18 08:00 96.9 95 20 170/91 (117) 98 05/11/18 08:00 98 27 96 Facial 45 05/11/18 07:55 101 05/11/18 07:14 89 20 97 Venturi Mask 10.0 45 05/11/18 07:13 94 Venturi Mask 10.0 45 05/11/18 07:13 Bi-pap 10.0 45 05/11/18 07:04 87 18 94 Venturi Mask 10.0 45 05/11/18 04:00 92 05/11/18 04:00 97.4 95 18 155/85 (108) 97 05/11/18 03:57 92 22 100 Bi-pap 45 05/11/18 03:41 95 21 95 Bi-pap 45 05/11/18 03:31 80 23 97 Facial 45 05/11/18 01:00 80 23 98 Facial 45 05/11/18 00:00 97.9 97 17 146/86 (106) 99 05/11/18 00:00 92 05/10/18 23:08 89 22 97 Facial 45 05/10/18 21:09 94 145/88 05/10/18 21:00 Bi-pap 15.0 Venturi Mask 05/10/18 21:00 99 19 97 Facial 45 05/10/18 20:00 92 05/10/18 20:00 97.0 94 18 145/88 (107) 98 05/10/18 18:39 162/79 05/10/18 18:35 96 Venturi Mask 10.0 45 05/10/18 18:35 101 22 96 Facial 45 05/10/18 18:35 Bi-pap 10.0 45 Intake and Output 05/10/18 05/11/18 19:00 07:00 Intake Total 720 ml Balance 720 ml Intake Oral 720 ml # Voids 2 1 # Bowel Movements 1 1 General Appearance: WD/WN Respiratory/Chest: crackles/rales, rhonchi Cardiovascular: normal rate, edema Abdomen: no organomegaly, non distended Neurologic/Psychiatric: abnormal gait, alert, oriented x 3 Laboratory Tests 05/11/18 15:20: White Blood Count 5.1, Red Blood Count 2.61L, Hemoglobin 7.5L, Hematocrit 24.4L , Mean Corpuscular Volume 94, Mean Corpuscular Hemoglobin 28.8, Mean Corpuscular Hemoglobin Concent 30.8L, Red Cell Distribution Width 18.1H, Platelet Count 117L, Mean Platelet Volume 5.9L, Neutrophils (%) (Auto) , Lymphocytes (%) (Auto) , Monocytes (%) (Auto) , Eosinophils (%) (Auto) , Basophils (%) (Auto) , Neutrophils % (Manual) [Pending], Lymphocytes % (Manual) [Pending], Platelet Estimate [Pending], Platelet Morphology [Pending], Prothrombin Time 29.9H, Prothromb Time International Ratio 3.0H, Sodium Level 138, Potassium Level 4.3, Chloride Level 98, Carbon Dioxide Level 27, Anion Gap 14, Blood Urea Nitrogen 59H, Creatinine 8.4H, Estimat Glomerular Filtration Rate 7.8, Glucose Level 101, Calcium Level 9.3, Random Vancomycin Level 19.9 Current Medications Medications (Trade) Dose Ordered Sig/Oliverio Route PRN Reason Start Time Stop Time Status Last Admin Dose Admin Acetaminophen (Tylenol) 650 mg Q6H PRN ORAL Mild Pain/Temp > 100.5 05/06/18 23:45 05/23/18 17:40 05/09/18 17:43 Acetaminophen/ Hydrocodone Bitart ([place] 5/325) 1 tab Q4H PRN ORAL Severe Pain (Pain Scale 7-10) 05/09/18 18:00 05/16/18 17:59 05/11/18 06:01 Allopurinol (Zyloprim) 100 mg DAILY ORAL 05/07/18 09:00 05/24/18 08:59 05/11/18 08:48 Calcium Carbonate (Tums) 500 mg TIDPRN PRN ORAL Nausea & Vomiting/Dyspepsia 05/07/18 17:45 06/01/18 17:40 Clonidine HCl (Catapres Tab) 0.1 mg Q2H PRN ORAL SBP > 170 05/06/18 23:15 06/01/18 13:14 05/11/18 16:47 Clonidine HCl (Catapres tab) 0.2 mg BID ORAL 05/07/18 18:00 06/06/18 17:59 05/10/18 18:39 Collagenase (Santyl) 1 applic DAILY TOPIC 05/07/18 09:00 06/04/18 08:59 05/11/18 09:08 Dextrose (Dextrose 50%) 25 ml Q30M PRN IV Hypoglycemia 05/06/18 23:00 05/23/18 22:59 Dextrose (Dextrose 50%) 50 ml Q30M PRN IV Hypoglycemia 05/06/18 23:00 05/23/18 22:59 Diltiazem HCl (Cardizem) 90 mg EVERY 8 HOURS ORAL 05/07/18 06:00 06/01/18 13:59 05/11/18 14:33 Docusate Sodium (Colace) 100 mg TWICE A DAY ORAL 05/07/18 09:00 05/24/18 08:59 05/11/18 08:49 Epoetin Yung (Procrit (for ESRD on dialysis)) 10,000 units SUN-SUN-SUN SUBQ 05/13/18 21:00 05/29/18 20:59 Finasteride (Proscar) 5 mg DAILY ORAL 05/07/18 09:00 05/24/18 08:59 05/11/18 08:48 Gabapentin (Neurontin) 300 mg DAILY ORAL 05/07/18 09:00 05/24/18 08:59 05/11/18 08:48 Heparin Sodium (Porcine) (Heparin Sod 1000 units/ml 10ml) 2,000 unit ONCE PRN IV FOR HD USE ONLY 05/10/18 16:00 05/11/18 23:59 Insulin Aspart (NovoLOG) BEFORE MEALS AND HS SUBQ 05/07/18 06:30 05/24/18 06:29 05/11/18 11:46 Ipratropium [place] (Atrovent) 500 mcg Q4HRT PRN HHN Shortness of Breath 05/07/18 05:48 05/12/18 05:47 05/11/18 13:03 Meropenem 500 mg/ Sodium Chloride 55 ml @ 110 mls/hr Q24H IVPB 05/07/18 21:00 06/04/18 23:00 05/10/18 20:52 Pantoprazole (Protonix) 40 mg ACBREAKFAST ORAL 05/07/18 06:30 06/03/18 06:29 05/11/18 05:53 Sodium Chloride 1,000 ml @ 500 mls/hr Q2H PRN IVLG sbp<90 during hd 05/10/18 16:00 05/11/18 23:59 Tamsulosin HCl (Flomax) 0.4 mg BEDTIME ORAL 05/07/18 21:00 05/23/18 23:44 05/10/18 20:53 Vancomycin HCl (Vanco rx to dose) 1 ea DAILY PRN MISC Per rx protocol 05/07/18 09:00 06/04/18 23:00 Vitamin B Complex/ Vit C/Folic Acid (Nephrovite) 1 tab DAILY ORAL 05/07/18 09:00 05/26/18 08:59 05/11/18 08:48 Warfarin Sodium (Coumadin per pharmacy) 1 ea DAILY PRN MISC Per rx protocol 05/07/18 09:00 05/29/18 08:14 Steffi Escalante DO May 11, 2018 17:42
--- NOTE | 2018-05-11 19:28 | General Progress Note ---
Assessment/Plan Assessment/Plan # DVT of the deep veins superficial and politeal of the left leg, thrombocytopenia likely due to hep B chronic status --> VQ scan shows low probability of PE --> remains with anemia and low platelets therefore contraindication for anticoagulation --> will hold off on IVC filter --> continue coumadin inr goal 2-3 --> Cards and pulm recs appreciated as well as renal, vasc --> only if h/h drops, reconsider ivc filter, but currently doing well on coumadin # Thrombocytopenia -- plt goal >20k, transfuse as required, hepatitis B chronic infection --> plt trend in the 66k-->63k-->58k-->60k-->120k-->170k --> hep B noted and if no change in plt, consider anticoagulation --> coumadin okay to continue # Anemia of iron deficiency --> started on iron and epogen --> anemia panel has been reviewed --> hgb goal >7, transfuse as needed --> peripheral smear to be reviewed # Chronic hepatitis B -- appears to be chronic though need to confirm --> hep b surface antigen is postiive which means has chronic hepatitis B --> hep B surface antibody negative which means does not have immunity # Acute CHF exacerbation/pulmonary edema --> as per pulm # COPD w/o obvious exacerbation # CHU # ESRD on HD --> hd as per renal # Hx multiple amputations # Diabetic foot infection --> as per ID Time of note does not necessarily reflect time of encounter Greatly appreciate consultation! Subjective Constitutional: Denies: no symptoms, chills, diaphoresis, fever, malaise, weakness, other HEENT: Denies: no symptoms, eye pain, blurred vision, tearing, double vision, ear pain, ear discharge, nose pain, nose congestion, throat pain, throat swelling, mouth pain, mouth swelling, other Cardiovascular: Denies: no symptoms, chest pain, edema, irregular heart rate, lightheadedness, palpitations, syncope, other Respiratory: Denies: no symptoms, cough, orthopnea, shortness of breath, SOB with excertion, SOB at rest, sputum, stridor, wheezing, other Gastrointestinal/Abdominal: Denies: no symptoms, abdomen distended, abdominal pain, black stools, tarry stools, blood in stool, constipated, diarrhea, difficulty swallowing, nausea, poor appetite, poor fluid intake, rectal bleeding , vomiting, other Genitourinary: Denies: no symptoms, burning, discharge, frequency, flank pain, hematuria, incontinence, pain, urgency, other Neurologic/Psychiatric: Denies: no symptoms, anxiety, depressed, emotional problems, headache, numbness, paresthesia, pre-existing deficit, seizure, tingling, tremors, weakness, other Endocrine: Denies: no symptoms, excessive sweating, flushing, intolerance to cold, intolerance to heat, increased hunger, increased thirst, increased urine, unexplained weight gain, unexplained weight loss, other Hematologic/Lymphatic: Denies: no symptoms, anemia, easy bleeding, easy bruising, other Allergies: Coded Allergies: NO KNOWN DRUG ALLERGIES (Verified Allergy, Unknown, 03/06/18) Subjective 04/26: no events, potential plan for ivc f on sunday.12: no further ivc filter planned, started on coumadin inr goal 2-3 04/28: on iron and epogen dw Dr. Harper, continue as per his recs 04/29: awake and comfortable, HD today, On BIPAP and Oxygen. No new events. 04/30: Pt is seen by bedside, Platelets rising, 101 today. Coumadin started. Sleeping with BiPAP, HD tomorrow. 05/01: Pt was transferred to ICU for SVT on BIPAP, complains of less pain and swelling in his left foot, getting HD. 05/02: remains inthe icu, nsr at this time, tolerating coumadin, h/h relatively stable, plt better 05/03: has hepatitis Bs antigen and the ab is negative which means he doesn't have immunity, on coumadin, iron, procrit 05/07: Pt is seen by bedside, awake and alert, getting HD , no events 05/08: no events, no night sweats, tolerating anticoag well 05/09: Pt is awake and comfortable, on bipap, no acute distress. 05/10: Pt is seen by bedside, had CT today, no events 05/11: seen by bedside, awake, comfortable, lying in bed, on BIPAP, less congested, less pain and swelling in his left foot. hgb 7.5, plt 117 Objective Last 24 Hour Vital Signs Date Time Temp Pulse Resp B/P (MAP) Pulse Ox O2 Delivery O2 Flow Rate FiO2 05/11/18 18:00 174/95 05/11/18 17:54 82 26 97 Facial 45 05/11/18 16:47 174/95 05/11/18 16:00 98.1 106 20 174/95 (121) 99 05/11/18 15:23 102 05/11/18 14:46 78 22 99 Facial 45 05/11/18 14:33 92 133/79 05/11/18 14:22 92 24 95 Facial 45 05/11/18 13:04 91 22 98 Venturi Mask 10.0 45 05/11/18 12:55 92 22 96 Venturi Mask 10.0 45 05/11/18 12:00 97.0 92 20 133/79 (97) 97 05/11/18 11:52 93 05/11/18 11:07 78 13 97 Facial 45 05/11/18 08:58 87 17 98 Facial 45 05/11/18 08:47 170/91 05/11/18 08:10 Bi-pap 15.0 Venturi Mask 05/11/18 08:00 96.9 95 20 170/91 (117) 98 05/11/18 08:00 98 27 96 Facial 45 05/11/18 07:55 101 05/11/18 07:14 89 20 97 Venturi Mask 10.0 45 05/11/18 07:13 94 Venturi Mask 10.0 45 05/11/18 07:13 Bi-pap 10.0 45 05/11/18 07:04 87 18 94 Venturi Mask 10.0 45 05/11/18 04:00 92 05/11/18 04:00 97.4 95 18 155/85 (108) 97 05/11/18 03:57 92 22 100 Bi-pap 45 05/11/18 03:41 95 21 95 Bi-pap 45 05/11/18 03:31 80 23 97 Facial 45 05/11/18 01:00 80 23 98 Facial 45 05/11/18 00:00 97.9 97 17 146/86 (106) 99 05/11/18 00:00 92 05/10/18 23:08 89 22 97 Facial 45 05/10/18 21:09 94 145/88 05/10/18 21:00 Bi-pap 15.0 Venturi Mask 05/10/18 21:00 99 19 97 Facial 45 05/10/18 20:00 92 05/10/18 20:00 97.0 94 18 145/88 (107) 98 Intake and Output 05/10/18 05/11/18 19:00 07:00 Intake Total 720 ml Balance 720 ml Intake Oral 720 ml # Voids 2 1 # Bowel Movements 1 1 Laboratory Tests 05/11/18 15:20: White Blood Count 5.1, Red Blood Count 2.61L, Hemoglobin 7.5L, Hematocrit 24.4L , Mean Corpuscular Volume 94, Mean Corpuscular Hemoglobin 28.8, Mean Corpuscular Hemoglobin Concent 30.8L, Red Cell Distribution Width 18.1H, Platelet Count 117L, Mean Platelet Volume 5.9L, Neutrophils (%) (Auto) , Lymphocytes (%) (Auto) , Monocytes (%) (Auto) , Eosinophils (%) (Auto) , Basophils (%) (Auto) , Differential Total Cells Counted 100, Neutrophils % ( Manual) 72, Lymphocytes % (Manual) 9L, Monocytes % (Manual) 10, Eosinophils % ( Manual) 9H, Basophils % (Manual) 0, Band Neutrophils 0, Platelet Estimate DecreasedL, Platelet Morphology Normal, Hypochromasia 3+, Anisocytosis 2+, Prothrombin Time 29.9H, Prothromb Time International Ratio 3.0H, Sodium Level 138, Potassium Level 4.3, Chloride Level 98, Carbon Dioxide Level 27, Anion Gap 14, Blood Urea Nitrogen 59H, Creatinine 8.4H, Estimat Glomerular Filtration Rate 7.8, Glucose Level 101, Calcium Level 9.3, Random Vancomycin Level 19.9 Height (Feet): 5 Height (Inches): 7.00 Weight (Pounds): 278 Objective Gen: NAD HEAD AND NECK: No JVD. LUNGS: Decreased breath sounds. CARDIOVASCULAR: Regular S1 and S2 with no gallop. ABDOMEN: Soft. EXTREMITIES: Status post multiple amputations, 2+ lower extremity edema. L thigh shunt Juve Soto MD May 11, 2018 19:28
--- NOTE | 2018-05-11 19:30 | NUR ---
NURSE NOTES: Received report from Cornelia Price RN. Patient in bed AAO x4 with HOB elevated at semifowlers with CPAP on, no complaints of acute pain at this time. Kept clean, dry, and comfortable in bed at all times. IV line intact and patent. Cardiac monitoring in place per protocol. Safety measures in place; siderails x3 up, call light within reach, bed in lowest position, brakes and alarm on at all times. Needs and wants anticipated and attended, will continue plan of care and monitor for any changes noted
[2018-05-11 20:00] VITALS: BP 147/68
[2018-05-11] MEDS: Meropenem 500 MG in NS 55 ML IVPB SCH (21:02)
[2018-05-11] MEDS: Tamsulosin 0.4mg cap ORAL SCH (21:07)
--- NOTE | 2018-05-11 22:11 | General Progress Note ---
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 thracetesis dw Dr Gallito Platt and Dr Soto as well as Dr Fink who have cleared patient for dc, per dw CM patient will benefit from LTAC awaiting placement Subjective Allergies: Coded Allergies: NO KNOWN DRUG ALLERGIES (Verified Allergy, Unknown, 03/06/18) Subjective this note reflects my visit with patient on 05/10 above noted feels better breathing better in sinus rhythm using cpap Objective Last 24 Hour Vital Signs Date Time Temp Pulse Resp B/P (MAP) Pulse Ox O2 Delivery O2 Flow Rate FiO2 05/11/18 21:27 96 21 98 Facial 45 05/11/18 21:07 97 147/68 05/11/18 21:00 Bi-pap 15.0 Bi-pap Venturi Mask 05/11/18 20:28 94 19 96 Facial 45 05/11/18 20:25 94 19 96 Bi-pap 45 05/11/18 20:12 96 Venturi Mask 10.0 45 05/11/18 20:12 96 18 96 Venturi Mask 10.0 45 05/11/18 20:12 Venturi Mask 10.0 45 05/11/18 20:00 97.7 97 24 147/68 (94) 94 05/11/18 20:00 99 05/11/18 18:00 174/95 05/11/18 17:54 82 26 97 Facial 45 05/11/18 16:47 174/95 05/11/18 16:00 98.1 106 20 174/95 (121) 99 05/11/18 15:23 102 05/11/18 14:46 78 22 99 Facial 45 05/11/18 14:33 92 133/79 05/11/18 14:22 92 24 95 Facial 45 05/11/18 13:04 91 22 98 Venturi Mask 10.0 45 05/11/18 12:55 92 22 96 Venturi Mask 10.0 45 05/11/18 12:00 97.0 92 20 133/79 (97) 97 05/11/18 11:52 93 05/11/18 11:07 78 13 97 Facial 45 05/11/18 08:58 87 17 98 Facial 45 05/11/18 08:47 170/91 05/11/18 08:10 Bi-pap 15.0 Venturi Mask 05/11/18 08:00 96.9 95 20 170/91 (117) 98 05/11/18 08:00 98 27 96 Facial 45 05/11/18 07:55 101 05/11/18 07:14 89 20 97 Venturi Mask 10.0 45 05/11/18 07:13 94 Venturi Mask 10.0 45 05/11/18 07:13 Bi-pap 10.0 45 05/11/18 07:04 87 18 94 Venturi Mask 10.0 45 05/11/18 04:00 92 05/11/18 04:00 97.4 95 18 155/85 (108) 97 05/11/18 03:57 92 22 100 Bi-pap 45 05/11/18 03:41 95 21 95 Bi-pap 45 05/11/18 03:31 80 23 97 Facial 45 05/11/18 01:00 80 23 98 Facial 45 05/11/18 00:00 97.9 97 17 146/86 (106) 99 05/11/18 00:00 92 05/10/18 23:08 89 22 97 Facial 45 Intake and Output 05/10/18 05/11/18 19:00 07:00 Intake Total 720 ml Balance 720 ml Intake Oral 720 ml # Voids 2 1 # Bowel Movements 1 1 Laboratory Tests 05/11/18 15:20: White Blood Count 5.1, Red Blood Count 2.61L, Hemoglobin 7.5L, Hematocrit 24.4L , Mean Corpuscular Volume 94, Mean Corpuscular Hemoglobin 28.8, Mean Corpuscular Hemoglobin Concent 30.8L, Red Cell Distribution Width 18.1H, Platelet Count 117L, Mean Platelet Volume 5.9L, Neutrophils (%) (Auto) , Lymphocytes (%) (Auto) , Monocytes (%) (Auto) , Eosinophils (%) (Auto) , Basophils (%) (Auto) , Differential Total Cells Counted 100, Neutrophils % ( Manual) 72, Lymphocytes % (Manual) 9L, Monocytes % (Manual) 10, Eosinophils % ( Manual) 9H, Basophils % (Manual) 0, Band Neutrophils 0, Platelet Estimate DecreasedL, Platelet Morphology Normal, Hypochromasia 3+, Anisocytosis 2+, Prothrombin Time 29.9H, Prothromb Time International Ratio 3.0H, Sodium Level 138, Potassium Level 4.3, Chloride Level 98, Carbon Dioxide Level 27, Anion Gap 14, Blood Urea Nitrogen 59H, Creatinine 8.4H, Estimat Glomerular Filtration Rate 7.8, Glucose Level 101, Calcium Level 9.3, Random Vancomycin Level 19.9 Height (Feet): 5 Height (Inches): 7.00 Weight (Pounds): 278 General Appearance: WD/WN Neck: supple Cardiovascular: normal rate Respiratory/Chest: decreased breath sounds Abdomen: soft Objective left lower extremity dressing intact clean no bleeding Moe Sewell MD May 11, 2018 22:11
[2018-05-12] VITALS (8 sets, daily range): BP systolic 124–181; BP diastolic 75–102
--- NOTE | 2018-05-12 02:33 | NUR ---
NURSE NOTES: Patient in bed asleep with no S/S of distress at this time, will continue to monitor. CPAP on at this time
[2018-05-12] MEDS: dilTIAZem HCl 90mg tab ORAL SCH ×3 (05:40→21:17)
[2018-05-12] MEDS: NovoLOG Insulin Flexpen SUBQ SCH ×4 (05:41→21:20)
--- NOTE | 2018-05-12 07:09 | NUR ---
HAND-OFF: Report given to Dino Lugo RN. Endorsed plan of care, patient in stable condition.
--- NOTE | 2018-05-12 07:10 | NUR ---
NURSE NOTES: I received the patient awake and resting in bed. Patient does not display any signs of distress. Bed in the lowest position and call light within reach. I will continue to monitor the patient and implement care.
[2018-05-12] MEDS: Ipratropium 0.02% Inh Soln 2.5ml UD HHN PRN ×3 (07:15→21:34)
--- NOTE | 2018-05-12 07:56 | General Progress Note ---
Assessment/Plan Assessment/Plan Assessment - Heme (+) stools - Anemia and thrombocytopenia - DVT - on anticoagulation - Hep B S Ag (+) - DM - PVD - CHU - PVD / amputation - Poor Px Recommendations - Patient appropriately has declined GI procedures -repeat stool ob - Will follow conservatively - Monitor CBC while on anticoagulation - Replace Fe IV - PPI -add miralax - if H&H declines on anticoagulation, may need to reconsider IVC filter - Check HBV quantitative PCR - d/c planning per PMD Subjective ROS Limited/Unobtainable: Yes Allergies: Coded Allergies: NO KNOWN DRUG ALLERGIES (Verified Allergy, Unknown, 03/06/18) Subjective no event Objective Last 24 Hour Vital Signs Date Time Temp Pulse Resp B/P (MAP) Pulse Ox O2 Delivery O2 Flow Rate FiO2 05/12/18 07:21 90 20 98 Venturi Mask 10.0 45 05/12/18 07:15 90 18 96 Venturi Mask 10.0 45 05/12/18 07:15 Venturi Mask 10.0 45 05/12/18 07:15 96 Venturi Mask 10.0 45 05/12/18 05:40 89 151/87 05/12/18 05:30 82 17 97 Facial 45 05/12/18 04:47 89 17 98 Facial 45 05/12/18 04:00 97.6 89 19 151/87 (108) 96 05/12/18 04:00 89 05/12/18 03:40 86 18 97 05/12/18 00:01 95 20 99 Bi-pap 45 05/12/18 00:00 96 05/12/18 00:00 97.9 95 18 143/75 (97) 97 05/11/18 23:48 95 18 99 Bi-pap 45 05/11/18 21:27 96 21 98 Facial 45 05/11/18 21:07 97 147/68 05/11/18 21:00 Bi-pap 15.0 Bi-pap Venturi Mask 05/11/18 20:28 94 19 96 Facial 45 05/11/18 20:25 94 19 96 Bi-pap 45 05/11/18 20:12 96 Venturi Mask 10.0 45 05/11/18 20:12 96 18 96 Venturi Mask 10.0 45 05/11/18 20:12 Venturi Mask 10.0 45 05/11/18 20:00 97.7 97 24 147/68 (94) 94 05/11/18 20:00 99 05/11/18 18:00 174/95 05/11/18 17:54 82 26 97 Facial 45 05/11/18 16:47 174/95 05/11/18 16:00 98.1 106 20 174/95 (121) 99 05/11/18 15:23 102 05/11/18 14:46 78 22 99 Facial 45 05/11/18 14:33 92 133/79 05/11/18 14:22 92 24 95 Facial 45 05/11/18 13:04 91 22 98 Venturi Mask 10.0 45 05/11/18 12:55 92 22 96 Venturi Mask 10.0 45 05/11/18 12:00 97.0 92 20 133/79 (97) 97 05/11/18 11:52 93 05/11/18 11:07 78 13 97 Facial 45 05/11/18 08:58 87 17 98 Facial 45 05/11/18 08:47 170/91 05/11/18 08:10 Bi-pap 15.0 Venturi Mask 05/11/18 08:00 96.9 95 20 170/91 (117) 98 05/11/18 08:00 98 27 96 Facial 45 Intake and Output 05/11/18 05/12/18 19:00 07:00 Intake Total 360 ml 360 ml Balance 360 ml 360 ml Intake Oral 360 ml 360 ml Laboratory Tests 05/11/18 15:20: White Blood Count 5.1, Red Blood Count 2.61L, Hemoglobin 7.5L, Hematocrit 24.4L , Mean Corpuscular Volume 94, Mean Corpuscular Hemoglobin 28.8, Mean Corpuscular Hemoglobin Concent 30.8L, Red Cell Distribution Width 18.1H, Platelet Count 117L, Mean Platelet Volume 5.9L, Neutrophils (%) (Auto) , Lymphocytes (%) (Auto) , Monocytes (%) (Auto) , Eosinophils (%) (Auto) , Basophils (%) (Auto) , Differential Total Cells Counted 100, Neutrophils % ( Manual) 72, Lymphocytes % (Manual) 9L, Monocytes % (Manual) 10, Eosinophils % ( Manual) 9H, Basophils % (Manual) 0, Band Neutrophils 0, Platelet Estimate DecreasedL, Platelet Morphology Normal, Hypochromasia 3+, Anisocytosis 2+, Prothrombin Time 29.9H, Prothromb Time International Ratio 3.0H, Sodium Level 138, Potassium Level 4.3, Chloride Level 98, Carbon Dioxide Level 27, Anion Gap 14, Blood Urea Nitrogen 59H, Creatinine 8.4H, Estimat Glomerular Filtration Rate 7.8, Glucose Level 101, Calcium Level 9.3, Random Vancomycin Level 19.9 Height (Feet): 5 Height (Inches): 7.00 Weight (Pounds): 279 General Appearance: alert EENT: normal ENT inspection Neck: supple Cardiovascular: normal rate Respiratory/Chest: decreased breath sounds Abdomen: normal bowel sounds, non tender, soft Extremities: non-tender Lior Pinedo MD May 12, 2018 07:56
[2018-05-12 08:13] LABS: BASOPHILS % (AUTO) 1.1 % (0.0-2.0); EOSINOPHILS % (AUTO) 4.9 % (0.0-3.0); LYMPHOCYTES % (AUTO) 3.8 % (20.0-45.0); MEAN CORPUSCULAR VOLUME 93 FL (80-99); MONOCYTES % (AUTO) 11.7 % (1.0-10.0); NEUTROPHILS % (AUTO) 78.5 % (45.0-75.0); PLATELET COUNT 119 K/UL (150-450); RED BLOOD COUNT 2.78 M/UL (4.70-6.10); RED CELL DISTRIBUTION WIDTH 18.7 % (11.6-14.8); WHITE BLOOD COUNT 5.5 K/UL (4.8-10.8)
[2018-05-12 08:51] LABS: INR 2.5 (0.9-1.1)
[2018-05-12] MEDS: Nephrovite tab (Rena-Vite) ORAL SCH (09:21)
[2018-05-12] MEDS: Allopurinol 100mg Tab ORAL SCH (09:22)
[2018-05-12] MEDS: cloNIDine 0.2mg Tab ORAL SCH ×2 (09:22→17:44)
[2018-05-12] MEDS: Docusate 100mg cap ORAL SCH ×2 (09:22→17:44)
--- NOTE | 2018-05-12 11:21 | Cardiology Report ---
APPROVED REPORT EKG Measurement Heart [id number] Normal sinus rhythm Possible Left atrial enlargement Borderline ECG
--- NOTE | 2018-05-12 15:03 | Nephrology Progress Note ---
Assessment/Plan Problem List: (1) ESRD (end stage renal disease) (2) Diabetic infection of left foot (3) Acute DVT (deep venous thrombosis) Assessment: LLE (4) PVD (peripheral vascular disease) (5) Anemia Assessment: better (6) Iron deficiency (7) Thrombocytopenia Assessment: better (8) HTN (hypertension) Assessment: BP higher Plan HD as tolerated continue Epogen 46036 units abxs anticoagulation watch BP. needs to be at dry weight before adding meds. Subjective Subjective feels ok Objective Objective Last 24 Hour Vital Signs Date Time Temp Pulse Resp B/P (MAP) Pulse Ox O2 Delivery O2 Flow Rate FiO2 05/12/18 14:16 88 18 99 Venturi Mask 10.0 45 05/12/18 13:34 95 144/102 05/12/18 12:16 95 05/12/18 11:39 97.5 98 20 144/102 (116) 98 05/12/18 11:10 85 20 98 Facial 45 05/12/18 09:35 87 18 99 Facial 45 05/12/18 09:22 141/86 05/12/18 09:00 Bi-pap 15.0 Bi-pap Venturi Mask 05/12/18 08:00 97.6 97 15 141/86 (104) 100 05/12/18 07:55 94 05/12/18 07:21 90 20 98 Venturi Mask 10.0 45 05/12/18 07:15 90 18 96 Venturi Mask 10.0 45 05/12/18 07:15 Venturi Mask 10.0 45 05/12/18 07:15 84 18 98 Facial 45 05/12/18 07:15 96 Venturi Mask 10.0 45 05/12/18 05:40 89 151/87 05/12/18 05:30 82 17 97 Facial 45 05/12/18 04:47 89 17 98 Facial 45 05/12/18 04:00 97.6 89 19 151/87 (108) 96 05/12/18 04:00 89 05/12/18 03:40 86 18 97 05/12/18 00:01 95 20 99 Bi-pap 45 05/12/18 00:00 96 05/12/18 00:00 97.9 95 18 143/75 (97) 97 05/11/18 23:48 95 18 99 Bi-pap 45 05/11/18 21:27 96 21 98 Facial 45 05/11/18 21:07 97 147/68 05/11/18 21:00 Bi-pap 15.0 Bi-pap Venturi Mask 05/11/18 20:28 94 19 96 Facial 45 05/11/18 20:25 94 19 96 Bi-pap 45 05/11/18 20:12 96 Venturi Mask 10.0 45 05/11/18 20:12 96 18 96 Venturi Mask 10.0 45 05/11/18 20:12 Venturi Mask 10.0 45 05/11/18 20:00 97.7 97 24 147/68 (94) 94 05/11/18 20:00 99 05/11/18 18:00 174/95 05/11/18 17:54 82 26 97 Facial 45 05/11/18 16:47 174/95 05/11/18 16:00 98.1 106 20 174/95 (121) 99 05/11/18 15:23 102 Intake and Output 05/11/18 05/12/18 18:59 06:59 Intake Total 360 ml 360 ml Balance 360 ml 360 ml Intake Oral 360 ml 360 ml Laboratory Tests 05/11/18 15:20: White Blood Count 5.1, Red Blood Count 2.61L, Hemoglobin 7.5L, Hematocrit 24.4L , Mean Corpuscular Volume 94, Mean Corpuscular Hemoglobin 28.8, Mean Corpuscular Hemoglobin Concent 30.8L, Red Cell Distribution Width 18.1H, Platelet Count 117L, Mean Platelet Volume 5.9L, Neutrophils (%) (Auto) , Lymphocytes (%) (Auto) , Monocytes (%) (Auto) , Eosinophils (%) (Auto) , Basophils (%) (Auto) , Differential Total Cells Counted 100, Neutrophils % ( Manual) 72, Lymphocytes % (Manual) 9L, Monocytes % (Manual) 10, Eosinophils % ( Manual) 9H, Basophils % (Manual) 0, Band Neutrophils 0, Platelet Estimate DecreasedL, Platelet Morphology Normal, Hypochromasia 3+, Anisocytosis 2+, Prothrombin Time 29.9H, Prothromb Time International Ratio 3.0H, Sodium Level 138, Potassium Level 4.3, Chloride Level 98, Carbon Dioxide Level 27, Anion Gap 14, Blood Urea Nitrogen 59H, Creatinine 8.4H, Estimat Glomerular Filtration Rate 7.8, Glucose Level 101, Calcium Level 9.3, Random Vancomycin Level 19.9 05/12/18 06:45: White Blood Count 5.5, Red Blood Count 2.78L, Hemoglobin 8.0L, Hematocrit 26.0L , Mean Corpuscular Volume 93, Mean Corpuscular Hemoglobin 28.9, Mean Corpuscular Hemoglobin Concent 30.9L, Red Cell Distribution Width 18.7H, Platelet Count 119L, Mean Platelet Volume 6.6, Neutrophils (%) (Auto) 78.5H, Lymphocytes (%) (Auto) 3.8L, Monocytes (%) (Auto) 11.7H, Eosinophils (%) (Auto) 4.9H, Basophils (%) (Auto) 1.1, Prothrombin Time 24.8H, Prothromb Time International Ratio 2.5H Height (Feet): 5 Height (Inches): 7.00 Weight (Pounds): 279 Cardiovascular: normal rate Respiratory/Chest: lungs clear Extremities: other - less edema Johan Harper MD May 12, 2018 15:03
--- NOTE | 2018-05-12 15:19 | NUR ---
NURSE NOTES: Patient has an order for dialysis on 05/13. [facility] contacted about the order.
--- NOTE | 2018-05-12 17:51 | Infectious Diseases Prog Note ---
Assessment/Plan Problems: (1) Acute osteomyelitis of metatarsal bone of left foot Assessment & Plan: left stump wound grew MRSA and Enterobacter cloacae, will continue meropenem and vancomycin treatment for osteomyelitis of the left foot metatarsal bone for 6 weeks. may switch to ertapenem once ready to be discharged to finish his course of treatment for 6 weeks total . EOT 06/09/15 continue local wound care and dressings change as per business analyst manager. vascular recommended no revascularization at this point. will treat with iv antibiotics for 6 weeks for his left metatarsal bone osteomyelitis. will follow patient along with business analyst manager please monitor weekly labs, while on iv antibiotics with CBC, CMP. please continue to follow up with business analyst manager at the wound care center (2) Achilles tendon infection Assessment & Plan: with open wound, already on wide spectrum antibiotics coverage , continue local wound care and dressings change , podiatry is following (3) Diabetic foot infection Assessment & Plan: continue wide spectrum antibiotics , with tight glycemic control. (4) ESRD (end stage renal disease) Assessment & Plan: on HD , renal is following (5) PVD (peripheral vascular disease) Assessment & Plan: had vascular eval , no need for angioplasty of the left leg as per vascular, on anticoagulation (6) Hepatitis B surface antigen positive Assessment & Plan: suspect due to recent vaccination , rule out active HBV infection, await viral load to confirm (7) Acute dyspnea Assessment & Plan: improving, suspect due to fluids over load, continue aggressive HD , monitor ABG, and CXR , continue BIPAP as needed , pulmonary is following Subjective Constitutional: Reports: no symptoms HEENT: Reports: no symptoms Respiratory: Reports: no symptoms Breasts: Reports: no symptoms Cardiovascular: Reports: no symptoms Gastrointestinal/Abdominal: Reports: no symptoms Genitourinary: Reports: no symptoms Neurologic: Reports: no symptoms Psychiatric: Reports: no symptoms Skin: Reports: no symptoms Endocrine: Reports: no symptoms Hematologic: Reports: no symptoms Musculoskeletal: Reports: no symptoms Allergies: Coded Allergies: NO KNOWN DRUG ALLERGIES (Verified Allergy, Unknown, 03/06/18) Subjective he was comfortable, laying in bed, on BIPAP, feels better less congested and not short of breath , with less pain and swelling in his left foot, no productive cough Objective Vital Signs Last 24 Hour Vital Signs Date Time Temp Pulse Resp B/P (MAP) Pulse Ox O2 Delivery O2 Flow Rate FiO2 05/12/18 17:46 100 124/83 (97) 05/12/18 17:44 124/83 05/12/18 16:45 80 20 99 Facial 45 05/12/18 16:08 152/83 (106) 05/12/18 15:56 97.9 95 20 181/95 (123) 95 05/12/18 15:24 181/95 05/12/18 15:17 95 05/12/18 14:23 92 20 99 Bi-pap 45 05/12/18 14:23 81 20 99 Facial 45 05/12/18 14:16 88 18 99 Venturi Mask 10.0 45 05/12/18 13:34 95 144/102 05/12/18 12:16 95 05/12/18 11:39 97.5 98 20 144/102 (116) 98 05/12/18 11:10 85 20 98 Facial 45 05/12/18 09:35 87 18 99 Facial 45 05/12/18 09:22 141/86 05/12/18 09:00 Bi-pap 15.0 Bi-pap Venturi Mask 05/12/18 08:00 97.6 97 15 141/86 (104) 100 05/12/18 07:55 94 05/12/18 07:21 90 20 98 Venturi Mask 10.0 45 05/12/18 07:15 90 18 96 Venturi Mask 10.0 45 05/12/18 07:15 Venturi Mask 10.0 45 05/12/18 07:15 84 18 98 Facial 45 05/12/18 07:15 96 Venturi Mask 10.0 45 05/12/18 05:40 89 151/87 05/12/18 05:30 82 17 97 Facial 45 05/12/18 04:47 89 17 98 Facial 45 05/12/18 04:00 97.6 89 19 151/87 (108) 96 05/12/18 04:00 89 05/12/18 03:40 86 18 97 05/12/18 00:01 95 20 99 Bi-pap 45 05/12/18 00:00 96 05/12/18 00:00 97.9 95 18 143/75 (97) 97 05/11/18 23:48 95 18 99 Bi-pap 45 05/11/18 21:27 96 21 98 Facial 45 05/11/18 21:07 97 147/68 05/11/18 21:00 Bi-pap 15.0 Bi-pap Venturi Mask 05/11/18 20:28 94 19 96 Facial 45 05/11/18 20:25 94 19 96 Bi-pap 45 05/11/18 20:12 96 Venturi Mask 10.0 45 05/11/18 20:12 96 18 96 Venturi Mask 10.0 45 05/11/18 20:12 Venturi Mask 10.0 45 05/11/18 20:00 97.7 97 24 147/68 (94) 94 05/11/18 20:00 99 05/11/18 18:00 174/95 05/11/18 17:54 82 26 97 Facial 45 Height (Feet): 5 Height (Inches): 7.00 Weight (Pounds): 279 General Appearance: WD/WN, no acute distress HEENT: normocephalic, atraumatic, anicteric, mucous membranes moist, PERRL, EOMI, pharynx normal, supple, no JVD Respiratory/Chest: chest wall non-tender, lungs clear, normal breath sounds, no respiratory distress, no accessory muscle use Cardiovascular: normal peripheral pulses, normal rate, regular rhythm, no gallop/murmur, no JVD Abdomen: normal bowel sounds, soft, non tender, no organomegaly, non distended , no mass, no scars Extremities: no cyanosis, no clubbing Skin: no rash, no lesions, no ulcers Neurologic/Psychiatric: alert, oriented x 3, responsive Lymphatic: no neck adenopathy, no groin adenopathy Musculoskeletal: normal muscle bulk, no effusion Laboratory Tests Test 05/12/18 06:45 White Blood Count 5.5 K/UL (4.8-10.8) Red Blood Count 2.78 M/UL (4.70-6.10) L Hemoglobin 8.0 G/DL (14.2-18.0) L Hematocrit 26.0 % (42.0-52.0) L Mean Corpuscular Volume 93 FL (80-99) Mean Corpuscular Hemoglobin 28.9 PG (27.0-31.0) Mean Corpuscular Hemoglobin Concent 30.9 G/DL (32.0-36.0) L Red Cell Distribution Width 18.7 % (11.6-14.8) H Platelet Count 119 K/UL (150-450) L Mean Platelet Volume 6.6 FL (6.5-10.1) Neutrophils (%) (Auto) 78.5 % (45.0-75.0) H Lymphocytes (%) (Auto) 3.8 % (20.0-45.0) L Monocytes (%) (Auto) 11.7 % (1.0-10.0) H Eosinophils (%) (Auto) 4.9 % (0.0-3.0) H Basophils (%) (Auto) 1.1 % (0.0-2.0) Prothrombin Time 24.8 SEC (9.30-11.50) H Prothromb Time International Ratio 2.5 (0.9-1.1) H Current Medications Medications (Trade) Dose Ordered Sig/Oliverio Route PRN Reason Start Time Stop Time Status Last Admin Dose Admin Acetaminophen (Tylenol) 650 mg Q6H PRN ORAL Mild Pain/Temp > 100.5 05/06/18 23:45 05/23/18 17:40 05/09/18 17:43 Acetaminophen/ Hydrocodone Bitart ([place] 5/325) 1 tab Q4H PRN ORAL Severe Pain (Pain Scale 7-10) 05/09/18 18:00 05/16/18 17:59 05/11/18 21:11 Allopurinol (Zyloprim) 100 mg DAILY ORAL 05/07/18 09:00 05/24/18 08:59 05/12/18 09:22 Calcium Carbonate (Tums) 500 mg TIDPRN PRN ORAL Nausea & Vomiting/Dyspepsia 05/07/18 17:45 06/01/18 17:40 Clonidine HCl (Catapres Tab) 0.1 mg Q2H PRN ORAL SBP > 170 05/06/18 23:15 06/01/18 13:14 05/12/18 15:24 Clonidine HCl (Catapres tab) 0.2 mg BID ORAL 05/07/18 18:00 06/06/18 17:59 05/12/18 17:44 Dextrose (Dextrose 50%) 25 ml Q30M PRN IV Hypoglycemia 05/06/18 23:00 05/23/18 22:59 Dextrose (Dextrose 50%) 50 ml Q30M PRN IV Hypoglycemia 05/06/18 23:00 05/23/18 22:59 Diltiazem HCl (Cardizem) 90 mg EVERY 8 HOURS ORAL 05/07/18 06:00 06/01/18 13:59 05/12/18 13:34 Docusate Sodium (Colace) 100 mg TWICE A DAY ORAL 05/07/18 09:00 05/24/18 08:59 05/12/18 17:44 Epoetin Yung (Procrit (for ESRD on dialysis)) 10,000 units SUN-SUN-SUN SUBQ 05/13/18 21:00 05/29/18 20:59 Finasteride (Proscar) 5 mg DAILY ORAL 05/07/18 09:00 05/24/18 08:59 05/12/18 09:21 Gabapentin (Neurontin) 300 mg DAILY ORAL 05/07/18 09:00 05/24/18 08:59 05/12/18 09:22 Heparin Sodium (Porcine) (Heparin Sod 1000 units/ml 10ml) 2,000 unit ONCE PRN IV FOR HD USE ONLY 05/13/18 15:15 05/18/18 15:14 Insulin Aspart (NovoLOG) BEFORE MEALS AND HS SUBQ 05/07/18 06:30 05/24/18 06:29 05/12/18 05:41 Ipratropium [place] (Atrovent) 500 mcg Q4H PRN HHN Shortness of Breath 05/12/18 07:45 05/17/18 07:44 05/12/18 14:17 Meropenem 500 mg/ Sodium Chloride 55 ml @ 110 mls/hr Q24H IVPB 05/07/18 21:00 06/04/18 23:00 05/11/18 21:02 Pantoprazole (Protonix) 40 mg ACBREAKFAST ORAL 05/07/18 06:30 06/03/18 06:29 05/12/18 05:40 Polyethylene Glycol (Miralax) 17 gm BEDTIME ORAL 05/12/18 21:00 06/11/18 20:59 Sodium Chloride 1,000 ml @ 500 mls/hr Q2H PRN IVLG sbp<90 during hd 05/12/18 15:30 05/13/18 23:59 Tamsulosin HCl (Flomax) 0.4 mg BEDTIME ORAL 05/07/18 21:00 2/7/19 23:44 05/11/18 21:07 Vancomycin HCl (Vanco rx to dose) 1 ea DAILY PRN MISC Per rx protocol 05/07/18 09:00 06/04/18 23:00 Vitamin B Complex/ Vit C/Folic Acid (Nephrovite) 1 tab DAILY ORAL 05/07/18 09:00 05/26/18 08:59 05/12/18 09:21 Warfarin Sodium (Coumadin per pharmacy) 1 ea DAILY PRN MISC Per rx protocol 05/07/18 09:00 05/29/18 08:14 Jaime Casey M.D. May 12, 2018 17:51
--- NOTE | 2018-05-12 19:10 | General Progress Note ---
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 thoracentesis dw Dr Gallito Platt and Dr Soto as well as Dr Fink who have cleared patient for dc, per dw CM patient will benefit from LTAC awaiting placement Subjective Allergies: Coded Allergies: NO KNOWN DRUG ALLERGIES (Verified Allergy, Unknown, 03/06/18) Subjective this note reflects my visit with patient on 05/10 above noted feels better breathing better in sinus rhythm using cpap Objective Last 24 Hour Vital Signs Date Time Temp Pulse Resp B/P (MAP) Pulse Ox O2 Delivery O2 Flow Rate FiO2 05/12/18 17:46 100 124/83 (97) 05/12/18 17:44 124/83 05/12/18 16:45 80 20 99 Facial 45 05/12/18 16:08 152/83 (106) 05/12/18 15:56 97.9 95 20 181/95 (123) 95 05/12/18 15:24 181/95 05/12/18 15:17 95 05/12/18 14:23 92 20 99 Bi-pap 45 05/12/18 14:23 81 20 99 Facial 45 05/12/18 14:16 88 18 99 Venturi Mask 10.0 45 05/12/18 13:34 95 144/102 05/12/18 12:16 95 05/12/18 11:39 97.5 98 20 144/102 (116) 98 05/12/18 11:10 85 20 98 Facial 45 05/12/18 09:35 87 18 99 Facial 45 05/12/18 09:22 141/86 05/12/18 09:00 Bi-pap 15.0 Bi-pap Venturi Mask 05/12/18 08:00 97.6 97 15 141/86 (104) 100 05/12/18 07:55 94 05/12/18 07:21 90 20 98 Venturi Mask 10.0 45 05/12/18 07:15 90 18 96 Venturi Mask 10.0 45 05/12/18 07:15 Venturi Mask 10.0 45 05/12/18 07:15 84 18 98 Facial 45 05/12/18 07:15 96 Venturi Mask 10.0 45 05/12/18 05:40 89 151/87 05/12/18 05:30 82 17 97 Facial 45 05/12/18 04:47 89 17 98 Facial 45 05/12/18 04:00 97.6 89 19 151/87 (108) 96 05/12/18 04:00 89 05/12/18 03:40 86 18 97 05/12/18 00:01 95 20 99 Bi-pap 45 05/12/18 00:00 96 05/12/18 00:00 97.9 95 18 143/75 (97) 97 05/11/18 23:48 95 18 99 Bi-pap 45 05/11/18 21:27 96 21 98 Facial 45 05/11/18 21:07 97 147/68 05/11/18 21:00 Bi-pap 15.0 Bi-pap Venturi Mask 05/11/18 20:28 94 19 96 Facial 45 05/11/18 20:25 94 19 96 Bi-pap 45 05/11/18 20:12 96 Venturi Mask 10.0 45 05/11/18 20:12 96 18 96 Venturi Mask 10.0 45 05/11/18 20:12 Venturi Mask 10.0 45 05/11/18 20:00 97.7 97 24 147/68 (94) 94 05/11/18 20:00 99 Intake and Output 05/11/18 05/12/18 18:59 06:59 Intake Total 360 ml 360 ml Balance 360 ml 360 ml Intake Oral 360 ml 360 ml Laboratory Tests 05/12/18 06:45: White Blood Count 5.5, Red Blood Count 2.78L, Hemoglobin 8.0L, Hematocrit 26.0L , Mean Corpuscular Volume 93, Mean Corpuscular Hemoglobin 28.9, Mean Corpuscular Hemoglobin Concent 30.9L, Red Cell Distribution Width 18.7H, Platelet Count 119L, Mean Platelet Volume 6.6, Neutrophils (%) (Auto) 78.5H, Lymphocytes (%) (Auto) 3.8L, Monocytes (%) (Auto) 11.7H, Eosinophils (%) (Auto) 4.9H, Basophils (%) (Auto) 1.1, Prothrombin Time 24.8H, Prothromb Time International Ratio 2.5H Height (Feet): 5 Height (Inches): 7.00 Weight (Pounds): 279 General Appearance: WD/WN, no apparent distress Neck: supple Cardiovascular: normal rate Respiratory/Chest: decreased breath sounds Abdomen: soft Objective left lower extremity dressing intact clean no bleeding Moe Sewell MD May 12, 2018 19:10
--- NOTE | 2018-05-12 19:22 | NUR ---
HAND-OFF: Report given to CLEVE Courtney.
--- NOTE | 2018-05-12 19:30 | NUR ---
NURSE NOTES: Report received from Rachel Lugo RN. Pt is sitting up at bedside in stable condition. Pt is awake, alert, and oriented x4. Pt is on CPAP, spO2 is 97%. No acute respiratory distress noted. IV site is asymptomatic, patent, and intact. L foot dressing noted to be dry and intact. Bed placed in lowest position with brake engaged, side rails up x2. Pt denies pain at this time. Call light and side table placed within reach. Will continue to monitor.
--- NOTE | 2018-05-12 20:00 | NUR ---
NURSE NOTES: OB stool collected and sent to lab.
--- NOTE | 2018-05-12 20:07 | NUR ---
RESPIRATORY NOTE: Received pt. on CPAP. No respiratory distress noted, pt. Sp02 @ 97%. Will continue to monitor pt.
--- NOTE | 2018-05-12 20:55 | Pulmonology Progress Note ---
Assessment/Plan Assessment/Plan 1. Diabetic foot infection 2. Acute diastolic CHF exacerbation/pulmonary edema 3. COPD w/o obvious exacerbation 4. CHU 5. ESRD on HD 6. Hx multiple amputations 7. Thrombocytopenia 8. Anemia 9. L leg DVT 10. HTN - uncontrolled 11. SVT 12. R pleural effusion Plan: Abx per ID Podiatric wound care/debridement as needed Monitor volumes, cont volume removed with HD Stressed fluid restriction Aggressive BP control Duonebs q6 Cont CPAP 10 cm H2O Cont coumadin Fu thora Subjective Constitutional: Reports: no symptoms HEENT: Repors: no symptoms Respiratory: Reports: no symptoms Cardiovascular: Reports: no symptoms Gastrointestinal/Abdominal: Reports: no symptoms Genitourinary: Reports: no symptoms Allergies: Coded Allergies: NO KNOWN DRUG ALLERGIES (Verified Allergy, Unknown, 03/06/18) Subjective continues on cpap adn tolerating HD planned for tomrrow no cp nv or bleeding noted tolerating po no fever minimally oob wound noted Objective Last 24 Hour Vital Signs Date Time Temp Pulse Resp B/P (MAP) Pulse Ox O2 Delivery O2 Flow Rate FiO2 05/12/18 20:05 Bi-pap 45 05/12/18 20:05 79 20 98 Facial 45 05/12/18 18:45 98 Bi-pap 45 05/12/18 17:46 100 124/83 (97) 05/12/18 17:44 124/83 05/12/18 16:45 80 20 99 Facial 45 05/12/18 16:08 152/83 (106) 05/12/18 15:56 97.9 95 20 181/95 (123) 95 05/12/18 15:24 181/95 05/12/18 15:17 95 05/12/18 14:23 92 20 99 Bi-pap 45 05/12/18 14:23 81 20 99 Facial 45 05/12/18 14:16 88 18 99 Venturi Mask 10.0 45 05/12/18 13:34 95 144/102 05/12/18 12:16 95 05/12/18 11:39 97.5 98 20 144/102 (116) 98 05/12/18 11:10 85 20 98 Facial 45 05/12/18 09:35 87 18 99 Facial 45 05/12/18 09:22 141/86 05/12/18 09:00 Bi-pap 15.0 Bi-pap Venturi Mask 05/12/18 08:00 97.6 97 15 141/86 (104) 100 05/12/18 07:55 94 05/12/18 07:21 90 20 98 Venturi Mask 10.0 45 05/12/18 07:15 90 18 96 Venturi Mask 10.0 45 05/12/18 07:15 Venturi Mask 10.0 45 05/12/18 07:15 84 18 98 Facial 45 05/12/18 07:15 96 Venturi Mask 10.0 45 05/12/18 05:40 89 151/87 05/12/18 05:30 82 17 97 Facial 45 05/12/18 04:47 89 17 98 Facial 45 05/12/18 04:00 97.6 89 19 151/87 (108) 96 05/12/18 04:00 89 05/12/18 03:40 86 18 97 05/12/18 00:01 95 20 99 Bi-pap 45 05/12/18 00:00 96 05/12/18 00:00 97.9 95 18 143/75 (97) 97 05/11/18 23:48 95 18 99 Bi-pap 45 05/11/18 21:27 96 21 98 Facial 45 05/11/18 21:07 97 147/68 05/11/18 21:00 Bi-pap 15.0 Bi-pap Venturi Mask Intake and Output 05/11/18 05/12/18 19:00 07:00 Intake Total 360 ml 360 ml Balance 360 ml 360 ml Intake Oral 360 ml 360 ml General Appearance: WD/WN Respiratory/Chest: crackles/rales, rhonchi Cardiovascular: edema Skin: lesions, ulcers Neurologic/Psychiatric: oriented x 3 Lymphatic: no neck adenopathy Musculoskeletal: normal muscle bulk Laboratory Tests 05/12/18 06:45: White Blood Count 5.5, Red Blood Count 2.78L, Hemoglobin 8.0L, Hematocrit 26.0L , Mean Corpuscular Volume 93, Mean Corpuscular Hemoglobin 28.9, Mean Corpuscular Hemoglobin Concent 30.9L, Red Cell Distribution Width 18.7H, Platelet Count 119L, Mean Platelet Volume 6.6, Neutrophils (%) (Auto) 78.5H, Lymphocytes (%) (Auto) 3.8L, Monocytes (%) (Auto) 11.7H, Eosinophils (%) (Auto) 4.9H, Basophils (%) (Auto) 1.1, Prothrombin Time 24.8H, Prothromb Time International Ratio 2.5H Current Medications Medications (Trade) Dose Ordered Sig/Oliverio Route PRN Reason Start Time Stop Time Status Last Admin Dose Admin Acetaminophen (Tylenol) 650 mg Q6H PRN ORAL Mild Pain/Temp > 100.5 05/06/18 23:45 05/23/18 17:40 05/09/18 17:43 Acetaminophen/ Hydrocodone Bitart ([place] 5/325) 1 tab Q4H PRN ORAL Severe Pain (Pain Scale 7-10) 05/09/18 18:00 05/16/18 17:59 05/11/18 21:11 Allopurinol (Zyloprim) 100 mg DAILY ORAL 05/07/18 09:00 05/24/18 08:59 05/12/18 09:22 Calcium Carbonate (Tums) 500 mg TIDPRN PRN ORAL Nausea & Vomiting/Dyspepsia 05/07/18 17:45 06/01/18 17:40 Clonidine HCl (Catapres Tab) 0.1 mg Q2H PRN ORAL SBP > 170 05/06/18 23:15 06/01/18 13:14 05/12/18 15:24 Clonidine HCl (Catapres tab) 0.2 mg BID ORAL 05/07/18 18:00 06/06/18 17:59 05/12/18 17:44 Dextrose (Dextrose 50%) 25 ml Q30M PRN IV Hypoglycemia 05/06/18 23:00 05/23/18 22:59 Dextrose (Dextrose 50%) 50 ml Q30M PRN IV Hypoglycemia 05/06/18 23:00 05/23/18 22:59 Diltiazem HCl (Cardizem) 90 mg EVERY 8 HOURS ORAL 05/07/18 06:00 06/01/18 13:59 05/12/18 13:34 Docusate Sodium (Colace) 100 mg TWICE A DAY ORAL 05/07/18 09:00 05/24/18 08:59 05/12/18 17:44 Epoetin Yung (Procrit (for ESRD on dialysis)) 10,000 units SUN-SUN-SUN SUBQ 05/13/18 21:00 05/29/18 20:59 Finasteride (Proscar) 5 mg DAILY ORAL 05/07/18 09:00 05/24/18 08:59 05/12/18 09:21 Gabapentin (Neurontin) 300 mg DAILY ORAL 05/07/18 09:00 05/24/18 08:59 05/12/18 09:22 Heparin Sodium (Porcine) (Heparin Sod 1000 units/ml 10ml) 2,000 unit ONCE PRN IV FOR HD USE ONLY 05/13/18 15:15 05/18/18 15:14 Insulin Aspart (NovoLOG) BEFORE MEALS AND HS SUBQ 05/07/18 06:30 05/24/18 06:29 05/12/18 05:41 Ipratropium [place] (Atrovent) 500 mcg Q4H PRN HHN Shortness of Breath 05/12/18 07:45 05/17/18 07:44 05/12/18 14:17 Meropenem 500 mg/ Sodium Chloride 55 ml @ 110 mls/hr Q24H IVPB 05/07/18 21:00 06/04/18 23:00 05/11/18 21:02 Pantoprazole (Protonix) 40 mg ACBREAKFAST ORAL 05/07/18 06:30 06/03/18 06:29 05/12/18 05:40 Polyethylene Glycol (Miralax) 17 gm BEDTIME ORAL 05/12/18 21:00 06/11/18 20:59 Sodium Chloride 1,000 ml @ 500 mls/hr Q2H PRN IVLG sbp<90 during hd 05/12/18 15:30 05/13/18 23:59 Tamsulosin HCl (Flomax) 0.4 mg BEDTIME ORAL 05/07/18 21:00 05/23/18 23:44 05/11/18 21:07 Vancomycin HCl (Vanco rx to dose) 1 ea DAILY PRN MISC Per rx protocol 05/07/18 09:00 06/04/18 23:00 Vitamin B Complex/ Vit C/Folic Acid (Nephrovite) 1 tab DAILY ORAL 05/07/18 09:00 05/26/18 08:59 05/12/18 09:21 Warfarin Sodium (Coumadin per pharmacy) 1 ea DAILY PRN MISC Per rx protocol 05/07/18 09:00 05/29/18 08:14 Steffi Escalante DO May 12, 2018 20:55
[2018-05-12] MEDS: Tamsulosin 0.4mg cap ORAL SCH (21:17)
[2018-05-12] MEDS: Miralax 17gm pkt ORAL SCH (21:18)
[2018-05-12] MEDS: Meropenem 500 MG in NS 55 ML IVPB SCH (21:18)
[2018-05-13] VITALS (9 sets, daily range): BP systolic 123–174; BP diastolic 65–97
--- NOTE | 2018-05-13 01:32 | NUR ---
NURSE NOTES: Pt asked to be taken off CPAP. Pt placed on Venturi Mask @ 15L. No respiratory distress noted. Will continue to monitor.
[2018-05-13] MEDS: dilTIAZem HCl 90mg tab ORAL SCH ×3 (06:13→22:18)
[2018-05-13] MEDS: NovoLOG Insulin Flexpen SUBQ SCH ×4 (06:30→21:00)
--- NOTE | 2018-05-13 07:09 | NUR ---
HAND-OFF: Report given to Dino Lugo RN. Pt is resting in bed in stable condition. No acute distress noted. Endorsed plan of care.
--- NOTE | 2018-05-13 07:15 | NUR ---
NURSE NOTES: I received the patient resting in bed. Patient awakes to name. Patient does not display any signs of distress. Bed in the lowest position and call light within reach. I will continue to monitor the patient and implement care.
--- NOTE | 2018-05-13 07:29 | NUR ---
RESPIRATORY NOTE: Received pt on CPAP 10, 45% FiO2, pt is tolerating well, saturates at 96%. No SOB or acute resp distress noted, no skin breakdown or redness noted around the face. Patient refused to put foam tapes on the face under the mask. Explained to pt the reason why we put tape on but pt still refused. RN Rachel made aware. Alarms are set and audible, Cpap is plugged into the red outlet, ambu bag is at bedside.Will continue to monitor.
[2018-05-13] MEDS: cloNIDine 0.2mg Tab ORAL SCH ×2 (09:00→18:34)
[2018-05-13] MEDS: Docusate 100mg cap ORAL SCH ×3 (09:45→18:33)
[2018-05-13] MEDS: Allopurinol 100mg Tab ORAL SCH (09:45)
[2018-05-13] MEDS: Nephrovite tab (Rena-Vite) ORAL SCH (09:45)
--- NOTE | 2018-05-13 09:48 | NUR ---
Social Service Note Follow up call placed to Hellen at [facility] [phone]. Possible bed today. Faxed updated JUN [phone]. Will follow up
[2018-05-13] MEDS: Ipratropium 0.02% Inh Soln 2.5ml UD HHN PRN ×2 (09:55→15:50)
--- NOTE | 2018-05-13 13:36 | Cardiac Electrophysiology PN ---
Assessment/Plan Status Narrative Normal left ventricular chamber size, systolic function and wall motion. Left ventricular ejection fraction estimated to be 60-65 %. Moderate left ventricular hypertrophy by 2-D. Small posterior pericardial effusion. Moderate left atrial enlargement. Mild right atrial enlargement. Right ventricular chamber size is within normal limits. Moderate aortic valve calcification with decreased cusp excursion c/w aortic stenosis. Moderately thickened mitral valve leaflets with normal excursion. Mitral annulus and aortic root calcification. Pulmonic valve not well visualized. Normal tricuspid valve structure. IVC dilated at 2.4 cm with slight physiologic collapse suggestive of in Assessment/Plan 1. Congestive heart failure due to diastolic dysfunction with BNP > 35,000. On hemodialysis 2. Troponin leak due to renal failure. No chest pain. EF 65%. 3. Hypertension. On hemodialysis, clonidine 0.2 mg bid and Cardizem 90 po q 8 hr 4. Sustained SVT at rate 170. Continue Cardizem 90 po q 8 hr 5. Nonsustained VT. No syncope, EF Normal. No further 6. Peripheral vascular disease left metatarsal and finger amputations 7. Respiratory failure/ COPD. On BIPAP 8. Acute left leg DVT. Coumadin held for Thoracentesis INR still 2.5 9. Lower extremity cellulitis, on iv Abx per ID 10. Morbid obesity. 11. ESRD on HD 12. Pleural effusion, Thoracentesis pending INR<1.5 DW RN, Son and Water Resource Agent Subjective Subjective In SR. Thoracentesis cancelled today as INR was 2.5 yesterday. No further VT or SVT Objective Last 24 Hour Vital Signs Date Time Temp Pulse Resp B/P (MAP) Pulse Ox O2 Delivery O2 Flow Rate FiO2 05/13/18 12:00 98.6 90 16 174/78 (110) 100 05/13/18 11:37 89 05/13/18 11:13 89 14 100 Facial 45 05/13/18 10:09 88 16 100 Bi-pap 45 05/13/18 09:55 86 25 100 Bi-pap 45 05/13/18 09:50 86 16 100 Facial 45 05/13/18 09:00 Bi-pap 30.0 Bi-pap Bi-pap 05/13/18 09:00 97.9 90 16 169/97 (121) 99 05/13/18 08:00 97.9 90 16 169/97 (121) 99 05/13/18 07:41 86 1/28/19 07:29 Bi-pap 45 05/13/18 07:29 78 13 96 Facial 45 05/13/18 07:29 97 Bi-pap 45 05/13/18 06:13 81 143/70 05/13/18 05:02 81 14 97 Facial 45 05/13/18 04:00 91 05/13/18 04:00 97.0 89 19 143/70 (94) 97 05/13/18 03:21 79 15 98 Facial 45 05/13/18 00:03 84 19 96 Facial 45 05/13/18 00:00 98.1 89 18 160/65 (96) 97 05/13/18 00:00 89 05/12/18 23:15 85 19 95 Facial 45 05/12/18 21:43 90 21 99 Bi-pap 45 05/12/18 21:36 89 21 95 Bi-pap 45 05/12/18 21:34 78 21 98 Facial 45 05/12/18 21:17 96 155/97 05/12/18 21:00 Bi-pap 30.0 Bi-pap Bi-pap 05/12/18 20:05 Bi-pap 45 05/12/18 20:05 79 20 98 Facial 45 05/12/18 20:00 98.3 96 19 155/97 (116) 100 05/12/18 20:00 96 05/12/18 18:45 98 Bi-pap 45 05/12/18 17:46 100 124/83 (97) 05/12/18 17:44 124/83 05/12/18 16:45 80 20 99 Facial 45 05/12/18 16:08 152/83 (106) 05/12/18 15:56 97.9 95 20 181/95 (123) 95 05/12/18 15:24 181/95 05/12/18 15:17 95 05/12/18 14:23 92 20 99 Bi-pap 45 05/12/18 14:23 81 20 99 Facial 45 05/12/18 14:16 88 18 99 Venturi Mask 10.0 45 05/12/18 13:34 95 144/102 Intake and Output 05/12/18 05/13/18 19:00 07:00 Intake Total 120 ml 360 ml Balance 120 ml 360 ml Intake Oral 120 ml Other 360 ml # Bowel Movements 2 Laboratory Tests Test 05/12/18 20:00 Stool Occult Blood Positive (NEGATIVE) Objective HEAD AND NECK: Positive JVD. LUNGS: Coarse Rhonchi CARDIOVASCULAR: Regular S1 and S2 ABDOMEN: Soft. Obese EXTREMITIES: Status post right hand and Left foot amputation. 2 plus edema Shelton Perdomo MD May 13, 2018 13:36
--- NOTE | 2018-05-13 14:31 | General Progress Note ---
Assessment/Plan Assessment/Plan # DVT of the deep veins superficial and politeal of the left leg, thrombocytopenia likely due to hep B chronic status --> VQ scan shows low probability of PE --> remains with anemia and low platelets therefore contraindication for anticoagulation --> will hold off on IVC filter --> continue coumadin inr goal 2-3 --> Cards and pulm recs appreciated as well as renal, vasc --> only if h/h drops, reconsider ivc filter, but currently doing well on coumadin # Thrombocytopenia -- plt goal >20k, transfuse as required, hepatitis B chronic infection --> plt trend in the 66k-->63k-->58k-->60k-->120k-->170k --> hep B noted and if no change in plt, consider anticoagulation --> coumadin okay to continue # Anemia of iron deficiency --> started on iron and epogen --> anemia panel has been reviewed --> hgb goal >7, transfuse as needed --> peripheral smear to be reviewed # Chronic hepatitis B -- appears to be chronic though need to confirm --> hep b surface antigen is postiive which means has chronic hepatitis B --> hep B surface antibody negative which means does not have immunity # Acute CHF exacerbation/pulmonary edema --> as per pulm # COPD w/o obvious exacerbation # CHU # ESRD on HD --> hd as per renal # Hx multiple amputations # Diabetic foot infection --> as per ID Time of note does not necessarily reflect time of encounter Greatly appreciate consultation! Subjective Constitutional: Denies: no symptoms, chills, diaphoresis, fever, malaise, weakness, other HEENT: Denies: no symptoms, eye pain, blurred vision, tearing, double vision, ear pain, ear discharge, nose pain, nose congestion, throat pain, throat swelling, mouth pain, mouth swelling, other Cardiovascular: Denies: no symptoms, chest pain, edema, irregular heart rate, lightheadedness, palpitations, syncope, other Respiratory: Denies: no symptoms, cough, orthopnea, shortness of breath, SOB with excertion, SOB at rest, sputum, stridor, wheezing, other Gastrointestinal/Abdominal: Denies: no symptoms, abdomen distended, abdominal pain, black stools, tarry stools, blood in stool, constipated, diarrhea, difficulty swallowing, nausea, poor appetite, poor fluid intake, rectal bleeding , vomiting, other Genitourinary: Denies: no symptoms, burning, discharge, frequency, flank pain, hematuria, incontinence, pain, urgency, other Neurologic/Psychiatric: Denies: no symptoms, anxiety, depressed, emotional problems, headache, numbness, paresthesia, pre-existing deficit, seizure, tingling, tremors, weakness, other Hematologic/Lymphatic: Denies: no symptoms, anemia, easy bleeding, easy bruising, other Allergies: Coded Allergies: NO KNOWN DRUG ALLERGIES (Verified Allergy, Unknown, 03/06/18) Subjective 04/26: no events, potential plan for ivc f on sunday.12: no further ivc filter planned, started on coumadin inr goal 2-3 04/28: on iron and epogen dw Dr. Harper, continue as per his recs 04/29: awake and comfortable, HD today, On BIPAP and Oxygen. No new events. 04/30: Pt is seen by bedside, Platelets rising, 101 today. Coumadin started. Sleeping with BiPAP, HD tomorrow. 05/01: Pt was transferred to ICU for SVT on BIPAP, complains of less pain and swelling in his left foot, getting HD. 05/02: remains inthe icu, nsr at this time, tolerating coumadin, h/h relatively stable, plt better 05/03: has hepatitis Bs antigen and the ab is negative which means he doesn't have immunity, on coumadin, iron, procrit 05/07: Pt is seen by bedside, awake and alert, getting HD , no events 05/08: no events, no night sweats, tolerating anticoag well 05/09: Pt is awake and comfortable, on bipap, no acute distress. 05/10: Pt is seen by bedside, had CT today, no events 05/11: seen by bedside, awake, comfortable, lying in bed, on BIPAP, less congested, less pain and swelling in his left foot. hgb 7.5, plt 117 05/13: seen by bedside awake, on venturi mask, Thoracentesis cancelled today as INR was 2.5 yesterday, plt 119, hgb 8. Objective Last 24 Hour Vital Signs Date Time Temp Pulse Resp B/P (MAP) Pulse Ox O2 Delivery O2 Flow Rate FiO2 05/13/18 13:00 92 17 99 Facial 45 05/13/18 12:00 98.6 90 16 174/78 (110) 100 05/13/18 11:37 89 05/13/18 11:13 89 14 100 Facial 45 05/13/18 10:09 88 16 100 Bi-pap 45 05/13/18 09:55 86 25 100 Bi-pap 45 05/13/18 09:50 86 16 100 Facial 45 05/13/18 09:00 Bi-pap 30.0 Bi-pap Bi-pap 05/13/18 09:00 97.9 90 16 169/97 (121) 99 05/13/18 08:00 97.9 90 16 169/97 (121) 99 05/13/18 07:41 86 05/13/18 07:29 Bi-pap 45 05/13/18 07:29 78 13 96 Facial 45 05/13/18 07:29 97 Bi-pap 45 05/13/18 06:13 81 143/70 05/13/18 05:02 81 14 97 Facial 45 05/13/18 04:00 91 05/13/18 04:00 97.0 89 19 143/70 (94) 97 05/13/18 03:21 79 15 98 Facial 45 05/13/18 00:03 84 19 96 Facial 45 05/13/18 00:00 98.1 89 18 160/65 (96) 97 05/13/18 00:00 89 05/12/18 23:15 85 19 95 Facial 45 05/12/18 21:43 90 21 99 Bi-pap 45 05/12/18 21:36 89 21 95 Bi-pap 45 05/12/18 21:34 78 21 98 Facial 45 05/12/18 21:17 96 155/97 05/12/18 21:00 Bi-pap 30.0 Bi-pap Bi-pap 05/12/18 20:05 Bi-pap 45 05/12/18 20:05 79 20 98 Facial 45 05/12/18 20:00 98.3 96 19 155/97 (116) 100 05/12/18 20:00 96 05/12/18 18:45 98 Bi-pap 45 05/12/18 17:46 100 124/83 (97) 05/12/18 17:44 124/83 05/12/18 16:45 80 20 99 Facial 45 05/12/18 16:08 152/83 (106) 05/12/18 15:56 97.9 95 20 181/95 (123) 95 05/12/18 15:24 181/95 05/12/18 15:17 95 Intake and Output 05/12/18 05/13/18 19:00 07:00 Intake Total 120 ml 360 ml Balance 120 ml 360 ml Intake Oral 120 ml Other 360 ml # Bowel Movements 2 Laboratory Tests 05/12/18 20:00: Stool Occult Blood Positive Height (Feet): 5 Height (Inches): 7.00 Weight (Pounds): 279 Objective Gen: NAD HEAD AND NECK: No JVD. LUNGS: Decreased breath sounds. CARDIOVASCULAR: Regular S1 and S2 with no gallop. ABDOMEN: Soft. EXTREMITIES: Status post multiple amputations, 2+ lower extremity edema. L thigh shunt Juve Soto MD May 13, 2018 14:31
--- NOTE | 2018-05-13 14:47 | Nephrology Progress Note ---
Assessment/Plan Problem List: (1) ESRD (end stage renal disease) (2) Diabetic infection of left foot (3) Acute DVT (deep venous thrombosis) Assessment: LLE (4) PVD (peripheral vascular disease) (5) Anemia Assessment: better (6) Iron deficiency (7) Thrombocytopenia Assessment: better (8) HTN (hypertension) Assessment: BP higher Plan HD tomorrow as tolerated continue Epogen 34920 units abxs anticoagulation watch BP. needs to be at dry weight before adding meds. Subjective Subjective Sleeping on facemask oxygen Objective Objective Last 24 Hour Vital Signs Date Time Temp Pulse Resp B/P (MAP) Pulse Ox O2 Delivery O2 Flow Rate FiO2 05/13/18 13:00 92 17 99 Facial 45 05/13/18 12:00 98.6 90 16 174/78 (110) 100 05/13/18 11:37 89 05/13/18 11:13 89 14 100 Facial 45 05/13/18 10:09 88 16 100 Bi-pap 45 05/13/18 09:55 86 25 100 Bi-pap 45 05/13/18 09:50 86 16 100 Facial 45 05/13/18 09:00 Bi-pap 30.0 Bi-pap Bi-pap 05/13/18 09:00 97.9 90 16 169/97 (121) 99 05/13/18 08:00 97.9 90 16 169/97 (121) 99 05/13/18 07:41 86 05/13/18 07:29 Bi-pap 45 05/13/18 07:29 78 13 96 Facial 45 05/13/18 07:29 97 Bi-pap 45 05/13/18 06:13 81 143/70 05/13/18 05:02 81 14 97 Facial 45 05/13/18 04:00 91 05/13/18 04:00 97.0 89 19 143/70 (94) 97 05/13/18 03:21 79 15 98 Facial 45 05/13/18 00:03 84 19 96 Facial 45 05/13/18 00:00 98.1 89 18 160/65 (96) 97 05/13/18 00:00 89 05/12/18 23:15 85 19 95 Facial 45 05/12/18 21:43 90 21 99 Bi-pap 45 05/12/18 21:36 89 21 95 Bi-pap 45 05/12/18 21:34 78 21 98 Facial 45 05/12/18 21:17 96 155/97 05/12/18 21:00 Bi-pap 30.0 Bi-pap Bi-pap 05/12/18 20:05 Bi-pap 45 05/12/18 20:05 79 20 98 Facial 45 05/12/18 20:00 98.3 96 19 155/97 (116) 100 05/12/18 20:00 96 05/12/18 18:45 98 Bi-pap 45 05/12/18 17:46 100 124/83 (97) 05/12/18 17:44 124/83 05/12/18 16:45 80 20 99 Facial 45 05/12/18 16:08 152/83 (106) 05/12/18 15:56 97.9 95 20 181/95 (123) 95 05/12/18 15:24 181/95 05/12/18 15:17 95 Intake and Output 05/12/18 05/13/18 19:00 07:00 Intake Total 120 ml 360 ml Balance 120 ml 360 ml Intake Oral 120 ml Other 360 ml # Bowel Movements 2 Laboratory Tests 05/12/18 20:00: Stool Occult Blood Positive Height (Feet): 5 Height (Inches): 7.00 Weight (Pounds): 279 Cardiovascular: normal rate Respiratory/Chest: rhonchi - bilaterally Extremities: moderate edema Johan Harper MD May 13, 2018 14:47
[2018-05-13] MEDS ORDERED: Heparin Sod 1000 units/ml 10ml IV PRN (15:15)
--- NOTE | 2018-05-13 15:22 | NUR ---
NURSE NOTES: RN spoke with Dr. Harper to clarify hemodialysis orders. Dr. Harper said the patient is to have dialysis on 05/13/18 and 05/15/18.
--- NOTE | 2018-05-13 15:27 | NUR ---
NURSE NOTES: [facility] Nephrology contacted about patient's dialysis order for 05/15.
--- NOTE | 2018-05-13 15:28 | Pulmonology Progress Note ---
Assessment/Plan Assessment/Plan Problem List: 1. Diabetic foot infection 2. Acute diastolic CHF exacerbation/pulmonary edema 3. COPD w/o obvious exacerbation 4. CHU 5. ESRD on HD 6. Hx multiple amputations 7. Thrombocytopenia 8. Anemia 9. L leg DVT 10. HTN - uncontrolled 11. SVT 12. R pleural effusion Plan: Abx per ID Podiatric wound care/debridement as needed Monitor volumes, cont volume removed with HD Stressed fluid restriction Aggressive BP control Duonebs q6 Cont CPAP 10 cm H2O Holding coumadin for thoracentesis, will give 1 mg additional vitamin K INR tomorrow and hopefully thora tomorrow No plans for IVC filter Case d/w Dr. Rodarte, patient's son, and RN Subjective ROS Limited/Unobtainable: No Interval Events: eager to have thora. breathing improved no inr today Constitutional: Reports: no symptoms HEENT: Repors: no symptoms Respiratory: Reports: no symptoms Cardiovascular: Reports: no symptoms Gastrointestinal/Abdominal: Reports: no symptoms Allergies: Coded Allergies: NO KNOWN DRUG ALLERGIES (Verified Allergy, Unknown, 03/06/18) Objective Last 24 Hour Vital Signs Date Time Temp Pulse Resp B/P (MAP) Pulse Ox O2 Delivery O2 Flow Rate FiO2 05/13/18 13:00 92 17 99 Facial 45 05/13/18 12:00 98.6 90 16 174/78 (110) 100 05/13/18 11:37 89 05/13/18 11:13 89 14 100 Facial 45 05/13/18 10:09 88 16 100 Bi-pap 45 05/13/18 09:55 86 25 100 Bi-pap 45 05/13/18 09:50 86 16 100 Facial 45 05/13/18 09:00 Bi-pap 30.0 Bi-pap Bi-pap 05/13/18 09:00 97.9 90 16 169/97 (121) 99 05/13/18 08:00 97.9 90 16 169/97 (121) 99 05/13/18 07:41 86 05/13/18 07:29 Bi-pap 45 05/13/18 07:29 78 13 96 Facial 45 05/13/18 07:29 97 Bi-pap 45 05/13/18 06:13 81 143/70 05/13/18 05:02 81 14 97 Facial 45 05/13/18 04:00 91 05/13/18 04:00 97.0 89 19 143/70 (94) 97 05/13/18 03:21 79 15 98 Facial 45 05/13/18 00:03 84 19 96 Facial 45 05/13/18 00:00 98.1 89 18 160/65 (96) 97 05/13/18 00:00 89 05/12/18 23:15 85 19 95 Facial 45 05/12/18 21:43 90 21 99 Bi-pap 45 05/12/18 21:36 89 21 95 Bi-pap 45 05/12/18 21:34 78 21 98 Facial 45 05/12/18 21:17 96 155/97 05/12/18 21:00 Bi-pap 30.0 Bi-pap Bi-pap 05/12/18 20:05 Bi-pap 45 05/12/18 20:05 79 20 98 Facial 45 05/12/18 20:00 98.3 96 19 155/97 (116) 100 05/12/18 20:00 96 05/12/18 18:45 98 Bi-pap 45 05/12/18 17:46 100 124/83 (97) 05/12/18 17:44 124/83 05/12/18 16:45 80 20 99 Facial 45 05/12/18 16:08 152/83 (106) 05/12/18 15:56 97.9 95 20 181/95 (123) 95 Intake and Output 05/12/18 05/13/18 19:00 07:00 Intake Total 120 ml 360 ml Balance 120 ml 360 ml Intake Oral 120 ml Other 360 ml # Bowel Movements 2 General Appearance: no acute distress HEENT: normocephalic, atraumatic Respiratory/Chest: crackles/rales Cardiovascular: normal rate, regular rhythm Abdomen: normal bowel sounds Extremities: other - improved edema Laboratory Tests 05/12/18 20:00: Stool Occult Blood Positive Current Medications Medications (Trade) Dose Ordered Sig/Oliverio Route PRN Reason Start Time Stop Time Status Last Admin Dose Admin Acetaminophen (Tylenol) 650 mg Q6H PRN ORAL Mild Pain/Temp > 100.5 05/06/18 23:45 05/23/18 17:40 05/09/18 17:43 Acetaminophen/ Hydrocodone Bitart ([place] 5/325) 1 tab Q4H PRN ORAL Severe Pain (Pain Scale 7-10) 05/09/18 18:00 05/16/18 17:59 05/11/18 21:11 Allopurinol (Zyloprim) 100 mg DAILY ORAL 05/07/18 09:00 05/24/18 08:59 05/13/18 09:45 Calcium Carbonate (Tums) 500 mg TIDPRN PRN ORAL Nausea & Vomiting/Dyspepsia 05/07/18 17:45 06/01/18 17:40 Clonidine HCl (Catapres Tab) 0.1 mg Q2H PRN ORAL SBP > 170 05/06/18 23:15 06/01/18 13:14 05/12/18 15:24 Clonidine HCl (Catapres tab) 0.2 mg BID ORAL 05/07/18 18:00 06/06/18 17:59 05/12/18 17:44 Dextrose (Dextrose 50%) 25 ml Q30M PRN IV Hypoglycemia 05/06/18 23:00 05/23/18 22:59 Dextrose (Dextrose 50%) 50 ml Q30M PRN IV Hypoglycemia 05/06/18 23:00 05/23/18 22:59 Diltiazem HCl (Cardizem) 90 mg EVERY 8 HOURS ORAL 05/07/18 06:00 06/01/18 13:59 05/13/18 06:13 Docusate Sodium (Colace) 100 mg TWICE A DAY ORAL 05/07/18 09:00 05/24/18 08:59 05/13/18 09:45 Epoetin Yung (Procrit (for ESRD on dialysis)) 10,000 units SUN-SUN-SUN SUBQ 05/13/18 21:00 05/29/18 20:59 Finasteride (Proscar) 5 mg DAILY ORAL 05/07/18 09:00 05/24/18 08:59 05/13/18 09:45 Gabapentin (Neurontin) 300 mg DAILY ORAL 05/07/18 09:00 05/24/18 08:59 05/13/18 09:45 Heparin Sodium (Porcine) (Heparin Sod 1000 units/ml 10ml) 500 unit ONCE IV 05/14/18 15:00 05/14/18 23:59 Heparin Sodium (Porcine) (Heparin Sod 1000 units/ml 10ml) 2,000 unit ONCE PRN IV FOR HD USE ONLY 05/13/18 15:15 2//19 15:14 Insulin Aspart (NovoLOG) BEFORE MEALS AND HS SUBQ 05/07/18 06:30 05/24/18 06:29 05/12/18 21:20 Ipratropium [place] (Atrovent) 500 mcg Q4H PRN HHN Shortness of Breath 05/12/18 07:45 05/17/18 07:44 05/13/18 09:55 Meropenem 500 mg/ Sodium Chloride 55 ml @ 110 mls/hr Q24H IVPB 05/07/18 21:00 06/04/18 23:00 05/12/18 21:18 Pantoprazole (Protonix) 40 mg ACBREAKFAST ORAL 05/07/18 06:30 06/03/18 06:29 05/13/18 06:13 Polyethylene Glycol (Miralax) 17 gm BEDTIME ORAL 05/12/18 21:00 06/11/18 20:59 05/12/18 21:18 Sodium Chloride 1,000 ml @ 500 mls/hr Q2H PRN IVLG sbp<90 during hd 05/12/18 15:30 05/13/18 23:59 Sodium Chloride 1,000 ml @ 500 mls/hr Q2H PRN IVLG sbp<90 during hd 05/14/18 14:48 05/14/18 23:59 Tamsulosin HCl (Flomax) 0.4 mg BEDTIME ORAL 05/07/18 21:00 05/23/18 23:44 05/12/18 21:17 Vancomycin HCl (Vanco rx to dose) 1 ea DAILY PRN MISC Per rx protocol 05/07/18 09:00 06/04/18 23:00 Vitamin B Complex/ Vit C/Folic Acid (Nephrovite) 1 tab DAILY ORAL 05/07/18 09:00 05/26/18 08:59 05/13/18 09:45 Warfarin Sodium (Coumadin per pharmacy) 1 ea DAILY PRN MISC Per rx protocol 05/07/18 09:00 05/29/18 08:14 Tyrel Platt MD May 13, 2018 15:28
--- NOTE | 2018-05-13 15:32 | Infectious Diseases Prog Note ---
Assessment/Plan Problems: (1) Acute osteomyelitis of metatarsal bone of left foot Assessment & Plan: left stump wound grew MRSA and Enterobacter cloacae, will continue meropenem and vancomycin treatment for osteomyelitis of the left foot metatarsal bone for 6 weeks. may switch to ertapenem once ready to be discharged to finish his course of treatment for 6 weeks total . EOT 06/09/15 continue local wound care and dressings change as per assistant property manager. vascular recommended no revascularization at this point. will treat with iv antibiotics for 6 weeks for his left metatarsal bone osteomyelitis. will follow patient along with assistant property manager please monitor weekly labs, while on iv antibiotics with CBC, CMP. please continue to follow up with assistant property manager at the wound care center (2) Achilles tendon infection Assessment & Plan: with open wound, already on wide spectrum antibiotics coverage , continue local wound care and dressings change , podiatry is following (3) Diabetic foot infection Assessment & Plan: continue wide spectrum antibiotics , with tight glycemic control. (4) ESRD (end stage renal disease) Assessment & Plan: on HD , renal is following (5) PVD (peripheral vascular disease) Assessment & Plan: had vascular eval , no need for angioplasty of the left leg as per vascular, on anticoagulation (6) Hepatitis B surface antigen positive Assessment & Plan: suspect due to recent vaccination , rule out active HBV infection, await viral load to confirm (7) Acute dyspnea Assessment & Plan: improving, suspect due to fluids over load, continue aggressive HD , monitor ABG, and CXR , continue BIPAP as needed , pulmonary is following Subjective Constitutional: Reports: no symptoms HEENT: Reports: no symptoms Respiratory: Reports: no symptoms Breasts: Reports: no symptoms Cardiovascular: Reports: no symptoms Gastrointestinal/Abdominal: Reports: no symptoms Genitourinary: Reports: no symptoms Neurologic: Reports: no symptoms Psychiatric: Reports: no symptoms Skin: Reports: no symptoms Endocrine: Reports: no symptoms Hematologic: Reports: no symptoms Musculoskeletal: Reports: no symptoms Allergies: Coded Allergies: NO KNOWN DRUG ALLERGIES (Verified Allergy, Unknown, 03/06/18) Subjective he was comfortable, laying in bed, on BIPAP, feels better less congested and not short of breath , with less pain and swelling in his left foot, no productive cough Objective Vital Signs Last 24 Hour Vital Signs Date Time Temp Pulse Resp B/P (MAP) Pulse Ox O2 Delivery O2 Flow Rate FiO2 05/13/18 13:00 92 17 99 Facial 45 05/13/18 12:00 98.6 90 16 174/78 (110) 100 05/13/18 11:37 89 05/13/18 11:13 89 14 100 Facial 45 05/13/18 10:09 88 16 100 Bi-pap 45 05/13/18 09:55 86 25 100 Bi-pap 45 05/13/18 09:50 86 16 100 Facial 45 05/13/18 09:00 Bi-pap 30.0 Bi-pap Bi-pap 05/13/18 09:00 97.9 90 16 169/97 (121) 99 05/13/18 08:00 97.9 90 16 169/97 (121) 99 05/13/18 07:41 86 05/13/18 07:29 Bi-pap 45 05/13/18 07:29 78 13 96 Facial 45 05/13/18 07:29 97 Bi-pap 45 05/13/18 06:13 81 143/70 05/13/18 05:02 81 14 97 Facial 45 05/13/18 04:00 91 05/13/18 04:00 97.0 89 19 143/70 (94) 97 05/13/18 03:21 79 15 98 Facial 45 05/13/18 00:03 84 19 96 Facial 45 05/13/18 00:00 98.1 89 18 160/65 (96) 97 05/13/18 00:00 89 05/12/18 23:15 85 19 95 Facial 45 05/12/18 21:43 90 21 99 Bi-pap 45 05/12/18 21:36 89 21 95 Bi-pap 45 05/12/18 21:34 78 21 98 Facial 45 05/12/18 21:17 96 155/97 05/12/18 21:00 Bi-pap 30.0 Bi-pap Bi-pap 05/12/18 20:05 Bi-pap 45 05/12/18 20:05 79 20 98 Facial 45 05/12/18 20:00 98.3 96 19 155/97 (116) 100 05/12/18 20:00 96 05/12/18 18:45 98 Bi-pap 45 05/12/18 17:46 100 124/83 (97) 05/12/18 17:44 124/83 05/12/18 16:45 80 20 99 Facial 45 05/12/18 16:08 152/83 (106) 05/12/18 15:56 97.9 95 20 181/95 (123) 95 Height (Feet): 5 Height (Inches): 7.00 Weight (Pounds): 279 General Appearance: WD/WN, no acute distress HEENT: normocephalic, atraumatic, anicteric, mucous membranes moist, PERRL Respiratory/Chest: chest wall non-tender, no respiratory distress, no accessory muscle use, decreased breath sounds, crackles/rales Cardiovascular: normal peripheral pulses, normal rate, regular rhythm, no gallop/murmur, no JVD Abdomen: normal bowel sounds, soft, non tender, no organomegaly, non distended , no mass, no scars Extremities: no cyanosis, no clubbing Skin: no rash, no lesions, no ulcers Neurologic/Psychiatric: alert, responsive Lymphatic: no neck adenopathy, no groin adenopathy Musculoskeletal: normal muscle bulk, no effusion Laboratory Tests Test 05/12/18 20:00 Stool Occult Blood Positive (NEGATIVE) Current Medications Medications (Trade) Dose Ordered Sig/Oliverio Route PRN Reason Start Time Stop Time Status Last Admin Dose Admin Acetaminophen (Tylenol) 650 mg Q6H PRN ORAL Mild Pain/Temp > 100.5 05/06/18 23:45 05/23/18 17:40 05/09/18 17:43 Acetaminophen/ Hydrocodone Bitart ([place] 5/325) 1 tab Q4H PRN ORAL Severe Pain (Pain Scale 7-10) 05/09/18 18:00 05/16/18 17:59 05/11/18 21:11 Allopurinol (Zyloprim) 100 mg DAILY ORAL 05/07/18 09:00 05/24/18 08:59 05/13/18 09:45 Calcium Carbonate (Tums) 500 mg TIDPRN PRN ORAL Nausea & Vomiting/Dyspepsia 05/07/18 17:45 06/01/18 17:40 Clonidine HCl (Catapres Tab) 0.1 mg Q2H PRN ORAL SBP > 170 05/06/18 23:15 06/01/18 13:14 05/12/18 15:24 Clonidine HCl (Catapres tab) 0.2 mg BID ORAL 05/07/18 18:00 06/06/18 17:59 05/12/18 17:44 Dextrose (Dextrose 50%) 25 ml Q30M PRN IV Hypoglycemia 05/06/18 23:00 05/23/18 22:59 Dextrose (Dextrose 50%) 50 ml Q30M PRN IV Hypoglycemia 05/06/18 23:00 05/23/18 22:59 Diltiazem HCl (Cardizem) 90 mg EVERY 8 HOURS ORAL 05/07/18 06:00 06/01/18 13:59 05/13/18 06:13 Docusate Sodium (Colace) 100 mg TWICE A DAY ORAL 05/07/18 09:00 05/24/18 08:59 05/13/18 09:45 Epoetin Yung (Procrit (for ESRD on dialysis)) 10,000 units SUN-SUN-SUN SUBQ 05/13/18 21:00 05/29/18 20:59 Finasteride (Proscar) 5 mg DAILY ORAL 05/07/18 09:00 05/24/18 08:59 05/13/18 09:45 Gabapentin (Neurontin) 300 mg DAILY ORAL 05/07/18 09:00 05/24/18 08:59 05/13/18 09:45 Heparin Sodium (Porcine) (Heparin Sod 1000 units/ml 10ml) 500 unit ONCE IV 05/14/18 15:00 05/14/18 23:59 Heparin Sodium (Porcine) (Heparin Sod 1000 units/ml 10ml) 2,000 unit ONCE PRN IV FOR HD USE ONLY 05/13/18 15:15 05/18/18 15:14 Insulin Aspart (NovoLOG) BEFORE MEALS AND HS SUBQ 05/07/18 06:30 05/24/18 06:29 05/12/18 21:20 Ipratropium Kinsey (Atrovent) 500 mcg Q4H PRN HHN Shortness of Breath 05/12/18 07:45 05/17/18 07:44 05/13/18 09:55 Meropenem 500 mg/ Sodium Chloride 55 ml @ 110 mls/hr Q24H IVPB 05/07/18 21:00 06/04/18 23:00 05/12/18 21:18 Pantoprazole (Protonix) 40 mg ACBREAKFAST ORAL 05/07/18 06:30 06/03/18 06:29 05/13/18 06:13 Phytonadione 1 mg/ Dextrose 55.5 ml @ 222 mls/hr ONCE IVPB 05/13/18 16:00 05/13/18 17:00 Polyethylene Glycol (Miralax) 17 gm BEDTIME ORAL 05/12/18 21:00 06/11/18 20:59 05/12/18 21:18 Sodium Chloride 1,000 ml @ 500 mls/hr Q2H PRN IVLG sbp<90 during hd 05/12/18 15:30 05/13/18 23:59 Sodium Chloride 1,000 ml @ 500 mls/hr Q2H PRN IVLG sbp<90 during hd 05/14/18 14:48 05/14/18 23:59 Tamsulosin HCl (Flomax) 0.4 mg BEDTIME ORAL 05/07/18 21:00 05/23/18 23:44 05/12/18 21:17 Vancomycin HCl (Vanco rx to dose) 1 ea DAILY PRN MISC Per rx protocol 05/07/18 09:00 06/04/18 23:00 Vitamin B Complex/ Vit C/Folic Acid (Nephrovite) 1 tab DAILY ORAL 05/07/18 09:00 05/26/18 08:59 05/13/18 09:45 Warfarin Sodium (Coumadin per pharmacy) 1 ea DAILY PRN MISC Per rx protocol 05/07/18 09:00 05/29/18 08:14 Jaime Casey M.D. May 13, 2018 15:32
[2018-05-13] MEDS ORDERED: Phytonadione 1 MG in D5W 55 ML IVPB SCH (16:00)
[2018-05-13 16:22] LABS: HEMATOCRIT 24.7 % (42.0-52.0); HEMOGLOBIN 7.5 G/DL (14.2-18.0); LYMPHOCYTES % (AUTO) 5.5 % (20.0-45.0); MEAN CORPUSCULAR VOLUME 93 FL (80-99); NEUTROPHILS % (AUTO) 79.6 % (45.0-75.0); PLATELET COUNT 106 K/UL (150-450); RED BLOOD COUNT 2.66 M/UL (4.70-6.10); WHITE BLOOD COUNT 5.1 K/UL (4.8-10.8)
[2018-05-13 16:23] LABS: BASOPHILS % (AUTO) 2.4 % (0.0-2.0); EOSINOPHILS % (AUTO) 5.3 % (0.0-3.0); MONOCYTES % (AUTO) 7.2 % (1.0-10.0)
[2018-05-13 16:32] LABS: INR 1.8 (0.9-1.1)
[2018-05-13 16:36] LABS: ALANINE AMINOTRANSFERASE 16 U/L (12-78); ALBUMIN 2.7 G/DL (3.4-5.0); ALBUMIN/GLOBULIN RATIO 0.7 (1.0-2.7); ALKALINE PHOSPHATASE 134 U/L (46-116); ANION GAP 15 mmol/L (5-15); ASPARTATE AMINO TRANSFERASE 20 U/L (15-37); BILIRUBIN,TOTAL 0.5 MG/DL (0.2-1.0); BLOOD UREA NITROGEN 92 mg/dL (7-18); CALCIUM 9.3 MG/DL (8.5-10.1); CARBON DIOXIDE 25 MMOL/L (21-32); CHLORIDE 96 MMOL/L (98-107); CREATININE 11.6 MG/DL (0.55-1.30); POTASSIUM 5.2 MMOL/L (3.5-5.1); SODIUM 136 MMOL/L (136-145)
--- NOTE | 2018-05-13 17:11 | NUR ---
NURSE NOTES: Dr. Soto made aware of patient's hemoglobin level. He did not want to order a blood transfusion today. CBC ordered for tomorrow morning.
--- NOTE | 2018-05-13 17:50 | Podiatric Progress Note ---
Assessment/Plan Patient Teodoro Gabriel is a 67 year old male who was admitted on Apr 23, 2018 at 19:18 with Assessment/Plan (1) Diabetic foot infection (2) ESRD (end stage renal disease) (3) Diabetic infection of left foot (4) Achilles tendon infection (5) PVD (peripheral vascular disease) (6) HTN (hypertension) (7) Acute DVT (deep venous thrombosis) (8) Acute osteomyelitis of metatarsal bone of left foot Assessment/Plan - Pt seen and evaluated. - Chart reviewed. - Wet to dry dressing applied to achilles. Recommend wound vac to posterior heel. - Betadine dressing to TMA dehiscence stump. - No acute surgical intervention is required at this time. - Pt is stable from podiatry perspective. - Recommend local wound care to LLE. - Pt awaiting discharge to SNF. - Pt could benefit from wound vac therapy to posterior heel achilles exposure. Rec Wound Care Nursing consult. - Pod cont to monito Subjective Allergies: Coded Allergies: NO KNOWN DRUG ALLERGIES (Verified Allergy, Unknown, 03/06/18) Subjective S: Pt seen bedside for L TMA dehiscence with achilles exposure, pt getting dialysis at bedside. Objective Exam Last 24 Hour Vital Signs Date Time Temp Pulse Resp B/P (MAP) Pulse Ox O2 Delivery O2 Flow Rate FiO2 05/13/18 17:28 85 154/85 (108) 05/13/18 16:06 89 22 100 Facial 45 05/13/18 16:01 91 15 100 Bi-pap 45 05/13/18 15:50 92 22 100 Bi-pap 45 05/13/18 15:38 90 05/13/18 13:00 92 17 99 Facial 45 05/13/18 12:00 98.6 90 16 174/78 (110) 100 05/13/18 11:37 89 05/13/18 11:13 89 14 100 Facial 45 05/13/18 10:09 88 16 100 Bi-pap 45 05/13/18 09:55 86 25 100 Bi-pap 45 05/13/18 09:50 86 16 100 Facial 45 05/13/18 09:00 Bi-pap 30.0 Bi-pap Bi-pap 05/13/18 09:00 97.9 90 16 169/97 (121) 99 05/13/18 08:00 97.9 90 16 169/97 (121) 99 05/13/18 07:41 86 1/28/19 07:29 Bi-pap 45 05/13/18 07:29 78 13 96 Facial 45 05/13/18 07:29 97 Bi-pap 45 05/13/18 06:13 81 143/70 05/13/18 05:02 81 14 97 Facial 45 05/13/18 04:00 91 05/13/18 04:00 97.0 89 19 143/70 (94) 97 05/13/18 03:21 79 15 98 Facial 45 05/13/18 00:03 84 19 96 Facial 45 05/13/18 00:00 98.1 89 18 160/65 (96) 97 05/13/18 00:00 89 05/12/18 23:15 85 19 95 Facial 45 05/12/18 21:43 90 21 99 Bi-pap 45 05/12/18 21:36 89 21 95 Bi-pap 45 05/12/18 21:34 78 21 98 Facial 45 05/12/18 21:17 96 155/97 05/12/18 21:00 Bi-pap 30.0 Bi-pap Bi-pap 05/12/18 20:05 Bi-pap 45 05/12/18 20:05 79 20 98 Facial 45 05/12/18 20:00 98.3 96 19 155/97 (116) 100 05/12/18 20:00 96 05/12/18 18:45 98 Bi-pap 45 Laboratory Tests Test 05/12/18 20:00 05/13/18 15:30 Stool Occult Blood Positive (NEGATIVE) White Blood Count 5.1 K/UL (4.8-10.8) Red Blood Count 2.66 M/UL (4.70-6.10) L Hemoglobin 7.5 G/DL (14.2-18.0) L Hematocrit 24.7 % (42.0-52.0) L Mean Corpuscular Volume 93 FL (80-99) Mean Corpuscular Hemoglobin 28.1 PG (27.0-31.0) Mean Corpuscular Hemoglobin Concent 30.2 G/DL (32.0-36.0) L Red Cell Distribution Width 18.0 % (11.6-14.8) H Platelet Count 106 K/UL (150-450) L Mean Platelet Volume 7.1 FL (6.5-10.1) Neutrophils (%) (Auto) 79.6 % (45.0-75.0) H Lymphocytes (%) (Auto) 5.5 % (20.0-45.0) L Monocytes (%) (Auto) 7.2 % (1.0-10.0) Eosinophils (%) (Auto) 5.3 % (0.0-3.0) H Basophils (%) (Auto) 2.4 % (0.0-2.0) H Prothrombin Time 18.1 SEC (9.30-11.50) H Prothromb Time International Ratio 1.8 (0.9-1.1) H Sodium Level 136 MMOL/L (136-145) Potassium Level 5.2 MMOL/L (3.5-5.1) H Chloride Level 96 MMOL/L (98-107) L Carbon Dioxide Level 25 MMOL/L (21-32) Anion Gap 15 mmol/L (5-15) Blood Urea Nitrogen 92 mg/dL (7-18) H Creatinine 11.6 MG/DL (0.55-1.30) H Estimat Glomerular Filtration Rate 5.3 mL/min (>60) Glucose Level 110 MG/DL (74-106) H Calcium Level 9.3 MG/DL (8.5-10.1) Total Bilirubin 0.5 MG/DL (0.2-1.0) Aspartate Amino Transf (AST/SGOT) 20 U/L (15-37) Alanine Aminotransferase (ALT/SGPT) 16 U/L (12-78) Alkaline Phosphatase 134 U/L (46-116) H Total Protein 6.5 G/DL (6.4-8.2) Albumin 2.7 G/DL (3.4-5.0) L Globulin 3.8 g/dL Albumin/Globulin Ratio 0.7 (1.0-2.7) L Random Vancomycin Level 17.8 ug/mL Microbiology Date/Time Source Procedure Growth Status 04/23/18 16:40 Blood Blood Culture - Final Staphylococcus Sp Coag Neg Complete 04/24/18 13:16 Wound Gram Stain - Final Complete 04/24/18 13:16 Wound Culture - Final Staphylococcus Aureus - Mrsa Usual Skin Marlene Enterobacter Clo[place]ae Complex Complete 04/23/18 18:17 Nasal Nares MRSA Culture - Final NO METHICILLIN RESISTANT STAPH AUREUS... Complete 04/23/18 18:17 Rectum VRE Culture - Final Enterococcus Faecium - Vre Complete 04/23/18 18:17 Rectum - Final NO CARBAPENEM-RESISTANT ENTEROBACTERI... Complete Dermatological Dermatological Narrative Dermatological Narrative Multiple ulceration noted to the L foot. L posterior ankle ulceration is noted with exposed Achillis tendon. +fibrotic tissue, no drainage, pus or odor noted, no cellulitis was seen. L Distal lateral stump ulceration noted with fibrotic base and biofilm , wound base noted to sub q, no acute SOI are noted. No active drainage noted. L medial stump smaller wound extended to subq , wound base noted to sub q, no acute SOI are noted. No active drainage noted. Rajat Powell DPM May 13, 2018 17:50
[2018-05-13] MEDS ORDERED: Vancomycin 750mg/NS 250ml IVPB SCH (18:00)
--- NOTE | 2018-05-13 19:26 | NUR ---
HAND-OFF: Report given to CLEVE Courtney. Endorsed that the Vitamin K was not given due to the decrease in patient's INR. Doctor was contacted to clarify if he still wanted Vitamin K to be adminstered.
--- NOTE | 2018-05-13 19:30 | NUR ---
NURSE NOTES: Report received from Rachel POON. Pt is resting in bed in stable condition. Pt is awake, alert, and oriented x4. Pt is on 2L O2 via nasal cannula and breathing is even and unlabored. No acute respiratory distress noted. IV site noted to be asymptomatic, patent, and intact. Bed placed in lowest position with brake engaged and side rails up x2. Call light and side table placed within reach. Will continue to monitor.
--- NOTE | 2018-05-13 20:10 | NUR ---
NURSE NOTES: Message left for MD Platt requesting call back to confirm whether or not he would still like us to administer the Vitamin K since pt most recent INR is 1.8. Awaiting call back for further instructions. Pt in stable condition. Will continue to monitor.
--- NOTE | 2018-05-13 20:12 | NUR ---
NURSE NOTES: MD Platt return call and asked that he we DO NOT administer the Vitamin K. Order already discontinued in eMAR, will not administer per .
--- NOTE | 2018-05-13 20:25 | General Progress Note ---
Assessment/Plan Assessment/Plan Assessment - Heme (+) stools - Anemia and thrombocytopenia - DVT - on anticoagulation - Hep B S Ag (+) - DM - PVD - CHU - PVD / amputation - low platelets - Poor Px Recommendations - Patient appropriately has declined GI w/u - Will follow conservatively - Monitor CBC while on anticoagulation - Replace Fe IV - PPI - if H&H declines on anticoagulation, may need to reconsider IVC filter - Check HBV quantitative PCR - d/c planning per PMD Subjective Allergies: Coded Allergies: NO KNOWN DRUG ALLERGIES (Verified Allergy, Unknown, 03/06/18) Subjective eating OK no abd pain (+) BM Objective Last 24 Hour Vital Signs Date Time Temp Pulse Resp B/P (MAP) Pulse Ox O2 Delivery O2 Flow Rate FiO2 05/13/18 19:20 Bi-pap 45 05/13/18 19:20 100 19 98 Facial 45 05/13/18 19:20 98 Bi-pap 45 05/13/18 18:34 123/69 05/13/18 18:29 100 20 123/69 (87) 05/13/18 17:28 85 154/85 (108) 05/13/18 16:06 89 22 100 Facial 45 05/13/18 16:01 91 15 100 Bi-pap 45 05/13/18 16:00 104 148/81 (103) 100 05/13/18 15:50 92 22 100 Bi-pap 45 05/13/18 15:38 90 05/13/18 13:00 92 17 99 Facial 45 05/13/18 12:00 98.6 90 16 174/78 (110) 100 05/13/18 11:37 89 05/13/18 11:13 89 14 100 Facial 45 05/13/18 10:09 88 16 100 Bi-pap 45 05/13/18 09:55 86 25 100 Bi-pap 45 05/13/18 09:50 86 16 100 Facial 45 05/13/18 09:00 Bi-pap 30.0 Bi-pap Bi-pap 05/13/18 09:00 97.9 90 16 169/97 (121) 99 05/13/18 08:00 97.9 90 16 169/97 (121) 99 05/13/18 07:41 86 05/13/18 07:29 Bi-pap 45 05/13/18 07:29 78 13 96 Facial 45 05/13/18 07:29 97 Bi-pap 45 05/13/18 06:13 81 143/70 05/13/18 05:02 81 14 97 Facial 45 05/13/18 04:00 91 05/13/18 04:00 97.0 89 19 143/70 (94) 97 05/13/18 03:21 79 15 98 Facial 45 05/13/18 00:03 84 19 96 Facial 45 05/13/18 00:00 98.1 89 18 160/65 (96) 97 05/13/18 00:00 89 05/12/18 23:15 85 19 95 Facial 45 05/12/18 21:43 90 21 99 Bi-pap 45 05/12/18 21:36 89 21 95 Bi-pap 45 05/12/18 21:34 78 21 98 Facial 45 05/12/18 21:17 96 155/97 05/12/18 21:00 Bi-pap 30.0 Bi-pap Bi-pap Intake and Output 05/12/18 05/13/18 18:59 06:59 Intake Total 120 ml 360 ml Balance 120 ml 360 ml Intake Oral 120 ml Other 360 ml # Bowel Movements 2 Laboratory Tests 05/13/18 15:30: White Blood Count 5.1, Red Blood Count 2.66L, Hemoglobin 7.5L, Hematocrit 24.7L , Mean Corpuscular Volume 93, Mean Corpuscular Hemoglobin 28.1, Mean Corpuscular Hemoglobin Concent 30.2L, Red Cell Distribution Width 18.0H, Platelet Count 106L, Mean Platelet Volume 7.1, Neutrophils (%) (Auto) 79.6H, Lymphocytes (%) (Auto) 5.5L, Monocytes (%) (Auto) 7.2, Eosinophils (%) (Auto) 5.3H, Basophils (%) (Auto) 2.4H, Prothrombin Time 18.1H, Prothromb Time International Ratio 1.8H, Sodium Level 136, Potassium Level 5.2H, Chloride Level 96L, Carbon Dioxide Level 25, Anion Gap 15, Blood Urea Nitrogen 92H, Creatinine 11.6H, Estimat Glomerular Filtration Rate 5.3, Glucose Level 110H, Calcium Level 9.3, Total Bilirubin 0.5, Aspartate Amino Transf (AST/SGOT) 20, Alanine Aminotransferase (ALT/SGPT) 16, Alkaline Phosphatase 134H, Total Protein 6.5, Albumin 2.7L, Globulin 3.8, Albumin/Globulin Ratio 0.7L, Random Vancomycin Level 17.8 Height (Feet): 5 Height (Inches): 7.00 Weight (Pounds): 279 Objective Obese AA man NCAT barbara BS, power RR obese abd nonfocal (+) UE amputations Bee Krueger MD May 13, 2018 20:25
[2018-05-13] MEDS: Miralax 17gm pkt ORAL SCH (21:00)
[2018-05-13] MEDS ORDERED: Epogen (for ESRD on dialysis) SUBQ SCH (21:00)
[2018-05-13] MEDS: Tamsulosin 0.4mg cap ORAL SCH (22:18)
[2018-05-13] MEDS: Meropenem 500 MG in NS 55 ML IVPB SCH (22:19)
[2018-05-13] MEDS: Norco 5mg/325mg tab ORAL PRN (22:19)
--- NOTE | 2018-05-13 22:33 | General Progress Note ---
Assessment/Plan Assessment/Plan cellulitis osteo myosisits renal failure on dialysis ho chf ho ermias thrombocytopenia dvt vq negative HTN svt pleural effusion abx per ID podiatry fup wound care arterial study noted dw Dr Raygoza, vascular eval from Dr Oliveira apprecated patient with chronic low platelets from ho hepatitis per heme will hold off on ivc filter montor labs fe deficiency anemia, started on iron and epo GI eval appreciated, patient refuses GI workup dialysis dependent pulmonary fup cards fup echo noted on cardizem monitor platelets hgb dvt and ulcer prohylaxis ct noted, pulmonay fup ? thoracentesis, coumadin held getting VK dw Dr Gallito Platt and Dr Soto as well as Dr Fink who have cleared patient for dc, per dw CM patient will benefit from LTAC awaiting placement Subjective Allergies: Coded Allergies: NO KNOWN DRUG ALLERGIES (Verified Allergy, Unknown, 03/06/18) Subjective this note reflects my visit with patient on 05/10 above noted feels better breathing better in sinus rhythm using cpap Objective Last 24 Hour Vital Signs Date Time Temp Pulse Resp B/P (MAP) Pulse Ox O2 Delivery O2 Flow Rate FiO2 05/13/18 22:18 103 124/82 05/13/18 20:00 103 05/13/18 20:00 98.6 103 20 124/82 (96) 99 05/13/18 19:20 Bi-pap 45 05/13/18 19:20 100 19 98 Facial 45 05/13/18 19:20 98 Bi-pap 45 05/13/18 18:34 123/69 05/13/18 18:29 100 20 123/69 (87) 05/13/18 17:28 85 154/85 (108) 05/13/18 16:06 89 22 100 Facial 45 05/13/18 16:01 91 15 100 Bi-pap 45 05/13/18 16:00 104 148/81 (103) 100 05/13/18 15:50 92 22 100 Bi-pap 45 05/13/18 15:38 90 05/13/18 13:00 92 17 99 Facial 45 05/13/18 12:00 98.6 90 16 174/78 (110) 100 05/13/18 11:37 89 05/13/18 11:13 89 14 100 Facial 45 05/13/18 10:09 88 16 100 Bi-pap 45 05/13/18 09:55 86 25 100 Bi-pap 45 05/13/18 09:50 86 16 100 Facial 45 05/13/18 09:00 Bi-pap 30.0 Bi-pap Bi-pap 05/13/18 09:00 97.9 90 16 169/97 (121) 99 05/13/18 08:00 97.9 90 16 169/97 (121) 99 05/13/18 07:41 86 05/13/18 07:29 Bi-pap 45 05/13/18 07:29 78 13 96 Facial 45 05/13/18 07:29 97 Bi-pap 45 05/13/18 06:13 81 143/70 05/13/18 05:02 81 14 97 Facial 45 05/13/18 04:00 91 05/13/18 04:00 97.0 89 19 143/70 (94) 97 05/13/18 03:21 79 15 98 Facial 45 05/13/18 00:03 84 19 96 Facial 45 05/13/18 00:00 98.1 89 18 160/65 (96) 97 05/13/18 00:00 89 05/12/18 23:15 85 19 95 Facial 45 Intake and Output 05/12/18 05/13/18 18:59 06:59 Intake Total 120 ml 360 ml Balance 120 ml 360 ml Intake Oral 120 ml Other 360 ml # Bowel Movements 2 Laboratory Tests 05/13/18 15:30: White Blood Count 5.1, Red Blood Count 2.66L, Hemoglobin 7.5L, Hematocrit 24.7L , Mean Corpuscular Volume 93, Mean Corpuscular Hemoglobin 28.1, Mean Corpuscular Hemoglobin Concent 30.2L, Red Cell Distribution Width 18.0H, Platelet Count 106L, Mean Platelet Volume 7.1, Neutrophils (%) (Auto) 79.6H, Lymphocytes (%) (Auto) 5.5L, Monocytes (%) (Auto) 7.2, Eosinophils (%) (Auto) 5.3H, Basophils (%) (Auto) 2.4H, Prothrombin Time 18.1H, Prothromb Time International Ratio 1.8H, Sodium Level 136, Potassium Level 5.2H, Chloride Level 96L, Carbon Dioxide Level 25, Anion Gap 15, Blood Urea Nitrogen 92H, Creatinine 11.6H, Estimat Glomerular Filtration Rate 5.3, Glucose Level 110H, Calcium Level 9.3, Total Bilirubin 0.5, Aspartate Amino Transf (AST/SGOT) 20, Alanine Aminotransferase (ALT/SGPT) 16, Alkaline Phosphatase 134H, Total Protein 6.5, Albumin 2.7L, Globulin 3.8, Albumin/Globulin Ratio 0.7L, Random Vancomycin Level 17.8 Height (Feet): 5 Height (Inches): 7.00 Weight (Pounds): 279 General Appearance: WD/WN, no apparent distress Neck: supple Cardiovascular: normal rate Respiratory/Chest: decreased breath sounds Abdomen: soft Objective left lower extremity dressing intact clean no bleeding Moe Sewlel MD May 13, 2018 22:33
[2018-05-14] VITALS (7 sets, daily range): BP systolic 118–179; BP diastolic 68–119
[2018-05-14] MEDS: Ipratropium 0.02% Inh Soln 2.5ml UD HHN PRN (02:20)
[2018-05-14] MEDS: dilTIAZem HCl 90mg tab ORAL SCH ×3 (06:02→21:43)
[2018-05-14] MEDS: NovoLOG Insulin Flexpen SUBQ SCH ×4 (06:05→21:00)
--- NOTE | 2018-05-14 07:35 | NUR ---
HAND-OFF: Report given to Cornelia Stein RN. Pt is resting in bed in stable condition. No acute distress noted. Endorsed plan of care.
--- NOTE | 2018-05-14 08:14 | NUR ---
NURSE NOTES: Report received from CLEVE Courtney. Pt is eating breakfast in bed. Pt is awake, alert, and oriented x4. Pt is on 2L O2 via nasal cannula and breathing is even and unlabored. Patient is SR on air sampling and monitoring. No acute respiratory distress noted. IV site noted to be asymptomatic, patent, and intact. Bed placed in lowest position with brake engaged and side rails up x2. Call light and side table placed within reach. Will continue to monitor.
[2018-05-14 08:38] LABS: HEMATOCRIT 26.3 % (42.0-52.0); HEMOGLOBIN 7.8 G/DL (14.2-18.0); MEAN CORPUSCULAR VOLUME 94 FL (80-99); PLATELET COUNT 107 K/UL (150-450); RED CELL DISTRIBUTION WIDTH 18.5 % (11.6-14.8); WHITE BLOOD COUNT 5.2 K/UL (4.8-10.8)
[2018-05-14 08:47] LABS: INR 1.6 (0.9-1.1)
[2018-05-14] MEDS: Docusate 100mg cap ORAL SCH ×2 (09:00→18:00)
[2018-05-14] MEDS: cloNIDine 0.2mg Tab ORAL SCH ×2 (09:25→18:57)
[2018-05-14] MEDS: Norco 5mg/325mg tab ORAL PRN (09:25)
[2018-05-14] MEDS: Allopurinol 100mg Tab ORAL SCH (09:25)
[2018-05-14] MEDS: Nephrovite tab (Rena-Vite) ORAL SCH (09:26)
[2018-05-14 09:28] LABS: ANION GAP 11 mmol/L (5-15); BLOOD UREA NITROGEN 68 mg/dL (7-18); CALCIUM 9.1 MG/DL (8.5-10.1); CARBON DIOXIDE 30 MMOL/L (21-32); CHLORIDE 96 MMOL/L (98-107); CREATININE 9.1 MG/DL (0.55-1.30); POTASSIUM 4.2 MMOL/L (3.5-5.1); SODIUM 136 MMOL/L (136-145)
--- NOTE | 2018-05-14 09:31 | NUR ---
NURSE NOTES: 9:31am Called Dr. Platt's office . #3. About 1.6 INR. Verifying if thoracentesis is able to be done today. Awaiting call back. Addendum: 05/14/18 at 1017 by David Kovacs RN 10:15am: spoke to Dr. Platt. Reiterate that INR is 1.6. Dr. Platt states thoracentesis can be done today.
--- NOTE | 2018-05-14 10:56 | Cardiac Electrophysiology PN ---
Assessment/Plan Status Narrative Normal left ventricular chamber size, systolic function and wall motion. Left ventricular ejection fraction estimated to be 60-65 %. Moderate left ventricular hypertrophy by 2-D. Small posterior pericardial effusion. Moderate left atrial enlargement. Mild right atrial enlargement. Right ventricular chamber size is within normal limits. Moderate aortic valve calcification with decreased cusp excursion c/w aortic stenosis. Moderately thickened mitral valve leaflets with normal excursion. Mitral annulus and aortic root calcification. Pulmonic valve not well visualized. Normal tricuspid valve structure. IVC dilated at 2.4 cm with slight physiologic collapse suggestive of in Assessment/Plan 1. Congestive heart failure due to diastolic dysfunction with BNP > 35,000. On hemodialysis 2. Troponin leak due to renal failure. No chest pain. EF 65%. 3. Hypertension. On hemodialysis, clonidine 0.2 mg bid and Cardizem 90 po q 8 hr 4. Sustained SVT at rate 170. Continue Cardizem 90 po q 8 hr 5. Nonsustained VT. No syncope, EF Normal. No further 6. Peripheral vascular disease left metatarsal and finger amputations 7. Respiratory failure/ COPD. On BIPAP 8. Acute left leg DVT. Coumadin held for Thoracentesis today INR 1.6 9. Lower extremity cellulitis, on iv Abx per ID 10. Morbid obesity. 11. ESRD on HD 12. Pleural effusion, Thoracentesis today LATIA RN Subjective Subjective In SR. Thoracentesis rescheduled for today No further VT or SVT Objective Last 24 Hour Vital Signs Date Time Temp Pulse Resp B/P (MAP) Pulse Ox O2 Delivery O2 Flow Rate FiO2 05/14/18 10:12 97.5 05/14/18 09:25 132/76 05/14/18 08:33 Bi-pap 45.0 Bi-pap Bi-pap 05/14/18 08:00 97.5 89 19 132/76 (94) 98 05/14/18 07:44 95 05/14/18 06:02 97 157/78 05/14/18 05:08 86 20 98 Facial 45 05/14/18 04:00 98.5 97 20 157/78 (104) 96 05/14/18 04:00 99 05/14/18 03:43 89 26 Bi-pap 45 05/14/18 02:27 73 19 98 Facial 45 05/14/18 02:20 73 18 93 Nasal Cannula 5.0 40 05/14/18 02:20 72 18 93 05/14/18 01:13 95 19 97 Facial 45 05/14/18 00:00 101 05/14/18 00:00 98.0 105 20 164/119 (134) 100 05/13/18 22:18 103 124/82 05/13/18 21:00 Bi-pap 45.0 Bi-pap Bi-pap 05/13/18 20:00 103 05/13/18 20:00 98.6 103 20 124/82 (96) 99 05/13/18 19:20 Bi-pap 45 05/13/18 19:20 100 19 98 Facial 45 05/13/18 19:20 98 Bi-pap 45 05/13/18 18:34 123/69 05/13/18 18:29 100 20 123/69 (87) 05/13/18 17:28 85 154/85 (108) 05/13/18 16:06 89 22 100 Facial 45 05/13/18 16:01 91 15 100 Bi-pap 45 05/13/18 16:00 104 148/81 (103) 100 05/13/18 15:50 92 22 100 Bi-pap 45 05/13/18 15:38 90 05/13/18 13:00 92 17 99 Facial 45 05/13/18 12:00 98.6 90 16 174/78 (110) 100 05/13/18 11:37 89 05/13/18 11:13 89 14 100 Facial 45 Intake and Output 05/13/18 05/14/18 19:00 07:00 Intake Total 360 ml 120 ml Balance 360 ml 120 ml Intake Oral 360 ml 120 ml # Voids 1 # Bowel Movements 1 1 Laboratory Tests Test 05/13/18 15:30 05/14/18 08:30 White Blood Count 5.1 K/UL (4.8-10.8) 5.2 K/UL (4.8-10.8) Red Blood Count 2.66 M/UL (4.70-6.10) L 2.80 M/UL (4.70-6.10) L Hemoglobin 7.5 G/DL (14.2-18.0) L 7.8 G/DL (14.2-18.0) L Hematocrit 24.7 % (42.0-52.0) L 26.3 % (42.0-52.0) L Mean Corpuscular Volume 93 FL (80-99) 94 FL (80-99) Mean Corpuscular Hemoglobin 28.1 PG (27.0-31.0) 28.0 PG (27.0-31.0) Mean Corpuscular Hemoglobin Concent 30.2 G/DL (32.0-36.0) L 29.9 G/DL (32.0-36.0) L Red Cell Distribution Width 18.0 % (11.6-14.8) H 18.5 % (11.6-14.8) H Platelet Count 106 K/UL (150-450) L 107 K/UL (150-450) L Mean Platelet Volume 7.1 FL (6.5-10.1) 6.0 FL (6.5-10.1) L Neutrophils (%) (Auto) 79.6 % (45.0-75.0) H % (45.0-75.0) Lymphocytes (%) (Auto) 5.5 % (20.0-45.0) L % (20.0-45.0) Monocytes (%) (Auto) 7.2 % (1.0-10.0) % (1.0-10.0) Eosinophils (%) (Auto) 5.3 % (0.0-3.0) H % (0.0-3.0) Basophils (%) (Auto) 2.4 % (0.0-2.0) H % (0.0-2.0) Prothrombin Time 18.1 SEC (9.30-11.50) H 16.0 SEC (9.30-11.50) H Prothromb Time International Ratio 1.8 (0.9-1.1) H 1.6 (0.9-1.1) H Sodium Level 136 MMOL/L (136-145) 136 MMOL/L (136-145) Potassium Level 5.2 MMOL/L (3.5-5.1) H 4.2 MMOL/L (3.5-5.1) Chloride Level 96 MMOL/L (98-107) L 96 MMOL/L (98-107) L Carbon Dioxide Level 25 MMOL/L (21-32) 30 MMOL/L (21-32) Anion Gap 15 mmol/L (5-15) 11 mmol/L (5-15) Blood Urea Nitrogen 92 mg/dL (7-18) H 68 mg/dL (7-18) H Creatinine 11.6 MG/DL (0.55-1.30) H 9.1 MG/DL (0.55-1.30) H Estimat Glomerular Filtration Rate 5.3 mL/min (>60) 7.2 mL/min (>60) Glucose Level 110 MG/DL (74-106) H 132 MG/DL (74-106) H Calcium Level 9.3 MG/DL (8.5-10.1) 9.1 MG/DL (8.5-10.1) Total Bilirubin 0.5 MG/DL (0.2-1.0) Aspartate Amino Transf (AST/SGOT) 20 U/L (15-37) Alanine Aminotransferase (ALT/SGPT) 16 U/L (12-78) Alkaline Phosphatase 134 U/L (46-116) H Total Protein 6.5 G/DL (6.4-8.2) Albumin 2.7 G/DL (3.4-5.0) L Globulin 3.8 g/dL Albumin/Globulin Ratio 0.7 (1.0-2.7) L Random Vancomycin Level 17.8 ug/mL Neutrophils % (Manual) Pending Lymphocytes % (Manual) Pending Platelet Estimate Pending Platelet Morphology Pending Objective HEAD AND NECK: Positive JVD. LUNGS: Coarse Rhonchi . Decrease breath sound CARDIOVASCULAR: Regular S1 and S2 ABDOMEN: Soft. Obese EXTREMITIES: Status post right hand and Left foot amputation. 2 plus edema Shelton Perdomo MD May 14, 2018 10:56
--- NOTE | 2018-05-14 11:29 | NUR ---
Social Service Note JUSTEN spoke with Hellen at [facility] [phone], patient is #6 on their wait list for a bed assignment. Will continue to monitor and follow up.
--- NOTE | 2018-05-14 12:11 | NUR ---
RD ASSESSMENT & RECOMMENDATIONS SEE CARE ACTIVITY FOR COMPLETE ASSESSMENT DAILY ESTIMATED NEEDS: Needs based on DM, wound, HD,Obesity/ 77kg abw 23-28 kcals/kg 9677-9907 total kcals 1.25-1.8 g protein/kg 96-139 g total protein 20-22 mL/kg 0648-7245 total fluid mLs NUTRITION DIAGNOSIS: Altered nutrition related lab values R/T ESRD, DM as evidenced by elev Creat (9.1), low Na (134-> wnl), elev K (5.4-> wnl), elev Phos (9.2-> not updated), elev BGs, improved. CURRENT DIET:CCHO MED, LOW K, LOW NA PO DIET RECOMMENDATIONS: RENAL, CCHO MED/ texture as tolerated ADDITIONAL RECOMMENDATIONS: * Obtain dry wt post HD * Phos binders w/ meals- last phos elev (9.2) * Check updated phos level- last done on 05/01 * Add Aashish 1pkt BID for wound healing. * texture modification as needed - on BIPAP prn
--- NOTE | 2018-05-14 13:23 | NUR ---
NURSE NOTES: Patient left unit at 12:15 pm to [facility]. Medicine for thoracentesis. Received report from [employer]Ruth, at 1:22 pm that 500 ml was drained from thoracentesis.
[2018-05-14] MEDS ORDERED: Heparin Sod 1000 units/ml 10ml IV SCH (15:00)
--- NOTE | 2018-05-14 15:03 | Pre-Procedure Note/Attestation ---
Pre-Procedure Note/Attestation Complete Prior to Procedure Planned Procedure: right Procedure Narrative: thoracentesis Indications for Procedure Pre-Operative Diagnosis: pleural effusion Attestation I attest that I discussed the nature of the procedure; its benefits; risks and complications; and alternatives (and the risks and benefits of such alternatives ), prior to the procedure, with the patient (or the patient's legal underwriting account representative). I attest that, if there was a reasonable possibility of needing a blood transfusion, the patient (or the patient's legal underwriting account representative) was given the [facility] standardized written summary, pursuant to the [place] Blood Safety Act ([place] Health and Safety Code # 1645, as amended). I attest that I re-evaluated the patient just prior to the surgery and that there has been no change in the patient's H&P, except as documented below: Nahid Brandon MD May 14, 2018 15:03
--- NOTE | 2018-05-14 15:07 | Brief Operative Note ---
Immediate Post Operative Note Operative Note Pre-op Diagnosis: pleural effusion Procedure: thoracentesis Post-op Diagnosis: same as pre-op Surgeon: Mathtew Durbin Specimen: yes - fluid sent to lab Complications: none Condition: stable Fluids: none Estimated Blood Loss: none Drains: none Implant(s) used?: No Nahid Durbin MD May 14, 2018 15:07
--- NOTE | 2018-05-14 15:10 | Diagnostic Imaging Report ---
Indications: Pleural effusion Technique: Procedural timeout performed. Ultrasound used to localize optimal puncture site. Sterile prepping and draping chest. Local anesthesia with 1% lidocaine. Under real-time ultrasound guidance, puncture pleural space using thoracentesis needle. Stylet removed. Catheter placed to vacuum bottle suction. Total 500 milliliters of slightly cloudy rust colored fluid aspirated. Patient tolerated procedure well, without immediate complication. Findings: Followup sonography demonstrates complete resolution of pleural fluid. Impression: Successful ultrasound-guided thoracentesis, yielding 500 milliliters of fluid
--- NOTE | 2018-05-14 15:12 | Diagnostic Imaging Report ---
Indication: Dyspnea, status post thoracentesis Technique: One view of the chest Comparison: 03/08/2018 Findings: Decreased right sided hazy opacity and costophrenic angle blunting, status post thoracentesis. No pneumothorax demonstrated. Persistent interstitial and airspace edema is noted. Impression: Improved right-sided pleural effusion, post thoracentesis. No radiographically evident complication
--- NOTE | 2018-05-14 15:23 | NUR ---
NURSE NOTES: Patient came back to unit at 1:30pm. Patient initially refused vitals signs, heart monitor, and assessment until after he ate lunch. Addendum: 05/14/18 at 1531 by David Kovacs RN @ 2pm: Heart monitor was put on. v/s in emr. Site on right upper posterior chest had a puncture wound from thoracentesis. Site dressing is intact, no drainage noted. Patient states no signs of respiratory distress or pain at this time. Patient is on 2L NC. @315: Spoke with Dr. Sewell about coumadin order and received order.
--- NOTE | 2018-05-14 16:10 | Nephrology Progress Note ---
Assessment/Plan Problem List: (1) ESRD (end stage renal disease) (2) Diabetic infection of left foot (3) Acute DVT (deep venous thrombosis) Assessment: LLE (4) PVD (peripheral vascular disease) (5) Anemia Assessment: better (6) Iron deficiency (7) Thrombocytopenia Assessment: ok (8) HTN (hypertension) Assessment: BP ok Plan HD as tolerated continue Epogen 85768 units abxs anticoagulation Subjective Subjective feels better Objective Objective Last 24 Hour Vital Signs Date Time Temp Pulse Resp B/P (MAP) Pulse Ox O2 Delivery O2 Flow Rate FiO2 05/14/18 14:58 98 118/74 05/14/18 14:15 97.6 98 19 118/74 (89) 94 05/14/18 12:00 97.7 87 19 124/72 (89) 98 05/14/18 10:12 97.5 05/14/18 09:25 132/76 05/14/18 08:33 Bi-pap 45.0 Bi-pap Bi-pap 05/14/18 08:00 97.5 89 19 132/76 (94) 98 05/14/18 07:44 95 05/14/18 06:02 97 157/78 05/14/18 05:08 86 20 98 Facial 45 05/14/18 04:00 98.5 97 20 157/78 (104) 96 05/14/18 04:00 99 05/14/18 03:43 89 26 Bi-pap 45 05/14/18 02:27 73 19 98 Facial 45 05/14/18 02:20 73 18 93 Nasal Cannula 5.0 40 05/14/18 02:20 72 18 93 05/14/18 01:13 95 19 97 Facial 45 05/14/18 00:00 101 05/14/18 00:00 98.0 105 20 164/119 (134) 100 05/13/18 22:18 103 124/82 05/13/18 21:00 Bi-pap 45.0 Bi-pap Bi-pap 05/13/18 20:00 103 05/13/18 20:00 98.6 103 20 124/82 (96) 99 05/13/18 19:20 Bi-pap 45 05/13/18 19:20 100 19 98 Facial 45 05/13/18 19:20 98 Bi-pap 45 05/13/18 18:34 123/69 05/13/18 18:29 100 20 123/69 (87) 05/13/18 17:28 85 154/85 (108) Intake and Output 05/13/18 05/14/18 19:00 07:00 Intake Total 360 ml 120 ml Balance 360 ml 120 ml Intake Oral 360 ml 120 ml # Voids 1 # Bowel Movements 1 1 Laboratory Tests 05/14/18 08:30: White Blood Count 5.2, Red Blood Count 2.80L, Hemoglobin 7.8L, Hematocrit 26.3L , Mean Corpuscular Volume 94, Mean Corpuscular Hemoglobin 28.0, Mean Corpuscular Hemoglobin Concent 29.9L, Red Cell Distribution Width 18.5H, Platelet Count 107L, Mean Platelet Volume 6.0L, Neutrophils (%) (Auto) , Lymphocytes (%) (Auto) , Monocytes (%) (Auto) , Eosinophils (%) (Auto) , Basophils (%) (Auto) , Differential Total Cells Counted 100, Neutrophils % ( Manual) 80H, Lymphocytes % (Manual) 6L, Monocytes % (Manual) 10, Eosinophils % ( Manual) 4H, Basophils % (Manual) 0, Band Neutrophils 0, Platelet Estimate DecreasedL, Platelet Morphology Normal, Hypochromasia 2+, Anisocytosis 2+, Prothrombin Time 16.0H, Prothromb Time International Ratio 1.6H, Sodium Level 136, Potassium Level 4.2, Chloride Level 96L, Carbon Dioxide Level 30, Anion Gap 11, Blood Urea Nitrogen 68H, Creatinine 9.1H, Estimat Glomerular Filtration Rate 7.2, Glucose Level 132H, Calcium Level 9.1 Height (Feet): 5 Height (Inches): 7.00 Weight (Pounds): 279 Cardiovascular: normal rate Respiratory/Chest: lungs clear Extremities: trace edema - Johan Swann MD May 14, 2018 16:10
--- NOTE | 2018-05-14 17:23 | Infectious Diseases Prog Note ---
Assessment/Plan Problems: (1) Acute osteomyelitis of metatarsal bone of left foot Assessment & Plan: left stump wound grew MRSA and Enterobacter cloacae, continue meropenem and vancomycin treatment for osteomyelitis of the left foot metatarsal bone for 6 weeks. may switch to ertapenem once ready to be discharged to finish his course of treatment for 6 weeks total . EOT 06/09/15 continue local wound care and dressings change as per fly rail operator. vascular recommended no revascularization at this point. will treat with iv antibiotics for 6 weeks for his left metatarsal bone osteomyelitis. will follow patient along with fly rail operator please monitor weekly labs, while on iv antibiotics with CBC, CMP. please continue to follow up with fly rail operator at the wound care center (2) Achilles tendon infection Assessment & Plan: with open wound, already on wide spectrum antibiotics coverage , continue local wound care and dressings change , podiatry is following (3) Diabetic foot infection Assessment & Plan: continue wide spectrum antibiotics , with tight glycemic control. (4) ESRD (end stage renal disease) Assessment & Plan: on HD , renal is following (5) PVD (peripheral vascular disease) Assessment & Plan: had vascular eval , no need for angioplasty of the left leg as per vascular, on anticoagulation (6) Hepatitis B surface antigen positive Assessment & Plan: suspect due to recent vaccination , rule out active HBV infection, await viral load to confirm (7) Acute dyspnea Assessment & Plan: improving, suspect due to fluids over load, continue aggressive HD , monitor ABG, and CXR , continue BIPAP as needed , pulmonary is following Subjective Constitutional: Reports: no symptoms HEENT: Reports: no symptoms Respiratory: Reports: no symptoms Breasts: Reports: no symptoms Cardiovascular: Reports: no symptoms Gastrointestinal/Abdominal: Reports: no symptoms Genitourinary: Reports: no symptoms Neurologic: Reports: no symptoms Psychiatric: Reports: no symptoms Skin: Reports: no symptoms Endocrine: Reports: no symptoms Hematologic: Reports: no symptoms Musculoskeletal: Reports: no symptoms Allergies: Coded Allergies: NO KNOWN DRUG ALLERGIES (Verified Allergy, Unknown, 03/06/18) Subjective he was comfortable, laying in bed, on BIPAP, feels better less congested and not short of breath , with less pain and swelling in his left foot, no productive cough Objective Vital Signs Last 24 Hour Vital Signs Date Time Temp Pulse Resp B/P (MAP) Pulse Ox O2 Delivery O2 Flow Rate FiO2 05/14/18 16:00 97.4 98 21 130/68 (88) 94 05/14/18 14:58 98 118/74 05/14/18 14:15 97.6 98 19 118/74 (89) 94 05/14/18 12:00 97.7 87 19 124/72 (89) 98 05/14/18 10:12 97.5 05/14/18 09:25 132/76 05/14/18 08:33 Bi-pap 45.0 Bi-pap Bi-pap 05/14/18 08:00 97.5 89 19 132/76 (94) 98 05/14/18 07:44 95 05/14/18 06:02 97 157/78 05/14/18 05:08 86 20 98 Facial 45 05/14/18 04:00 98.5 97 20 157/78 (104) 96 05/14/18 04:00 99 05/14/18 03:43 89 26 Bi-pap 45 05/14/18 02:27 73 19 98 Facial 45 05/14/18 02:20 73 18 93 Nasal Cannula 5.0 40 05/14/18 02:20 72 18 93 05/14/18 01:13 95 19 97 Facial 45 05/14/18 00:00 101 05/14/18 00:00 98.0 105 20 164/119 (134) 100 05/13/18 22:18 103 124/82 05/13/18 21:00 Bi-pap 45.0 Bi-pap Bi-pap 05/13/18 20:00 103 05/13/18 20:00 98.6 103 20 124/82 (96) 99 05/13/18 19:20 Bi-pap 45 05/13/18 19:20 100 19 98 Facial 45 05/13/18 19:20 98 Bi-pap 45 05/13/18 18:34 123/69 05/13/18 18:29 100 20 123/69 (87) 05/13/18 17:28 85 154/85 (108) Height (Feet): 5 Height (Inches): 7.00 Weight (Pounds): 279 General Appearance: WD/WN, no acute distress HEENT: normocephalic, atraumatic, anicteric, mucous membranes moist, PERRL Respiratory/Chest: chest wall non-tender, no respiratory distress, no accessory muscle use, decreased breath sounds, crackles/rales Cardiovascular: normal peripheral pulses, normal rate, regular rhythm, no gallop/murmur, no JVD Abdomen: normal bowel sounds, soft, non tender, no organomegaly, non distended , no mass, no scars Genitourinary: normal external genitalia Extremities: no cyanosis, no clubbing Skin: no rash, no lesions, no ulcers Neurologic/Psychiatric: asset protection officer II-XII grossly normal, alert, oriented x 3, responsive, normal mood/affect Lymphatic: no neck adenopathy, no groin adenopathy Musculoskeletal: normal muscle bulk, no effusion Laboratory Tests Test 05/14/18 08:30 White Blood Count 5.2 K/UL (4.8-10.8) Red Blood Count 2.80 M/UL (4.70-6.10) L Hemoglobin 7.8 G/DL (14.2-18.0) L Hematocrit 26.3 % (42.0-52.0) L Mean Corpuscular Volume 94 FL (80-99) Mean Corpuscular Hemoglobin 28.0 PG (27.0-31.0) Mean Corpuscular Hemoglobin Concent 29.9 G/DL (32.0-36.0) L Red Cell Distribution Width 18.5 % (11.6-14.8) H Platelet Count 107 K/UL (150-450) L Mean Platelet Volume 6.0 FL (6.5-10.1) L Neutrophils (%) (Auto) % (45.0-75.0) Lymphocytes (%) (Auto) % (20.0-45.0) Monocytes (%) (Auto) % (1.0-10.0) Eosinophils (%) (Auto) % (0.0-3.0) Basophils (%) (Auto) % (0.0-2.0) Differential Total Cells Counted 100 Neutrophils % (Manual) 80 % (45-75) H Lymphocytes % (Manual) 6 % (20-45) L Monocytes % (Manual) 10 % (1-10) Eosinophils % (Manual) 4 % (0-3) H Basophils % (Manual) 0 % (0-2) Band Neutrophils 0 % (0-8) Platelet Estimate Decreased L Platelet Morphology Normal Hypochromasia 2+ Anisocytosis 2+ Prothrombin Time 16.0 SEC (9.30-11.50) H Prothromb Time International Ratio 1.6 (0.9-1.1) H Sodium Level 136 MMOL/L (136-145) Potassium Level 4.2 MMOL/L (3.5-5.1) Chloride Level 96 MMOL/L (98-107) L Carbon Dioxide Level 30 MMOL/L (21-32) Anion Gap 11 mmol/L (5-15) Blood Urea Nitrogen 68 mg/dL (7-18) H Creatinine 9.1 MG/DL (0.55-1.30) H Estimat Glomerular Filtration Rate 7.2 mL/min (>60) Glucose Level 132 MG/DL (74-106) H Calcium Level 9.1 MG/DL (8.5-10.1) Current Medications Medications (Trade) Dose Ordered Sig/Oliverio Route PRN Reason Start Time Stop Time Status Last Admin Dose Admin Acetaminophen (Tylenol) 650 mg Q6H PRN ORAL Mild Pain/Temp > 100.5 05/06/18 23:45 05/23/18 17:40 05/09/18 17:43 Acetaminophen/ Hydrocodone Bitart (Dalton 5/325) 1 tab Q4H PRN ORAL Severe Pain (Pain Scale 7-10) 05/09/18 18:00 05/16/18 17:59 05/14/18 09:25 Allopurinol (Zyloprim) 100 mg DAILY ORAL 05/07/18 09:00 05/24/18 08:59 05/14/18 09:25 Calcium Carbonate (Tums) 500 mg TIDPRN PRN ORAL Nausea & Vomiting/Dyspepsia 05/07/18 17:45 06/01/18 17:40 Clonidine HCl (Catapres Tab) 0.1 mg Q2H PRN ORAL SBP > 170 05/06/18 23:15 06/01/18 13:14 05/12/18 15:24 Clonidine HCl (Catapres tab) 0.2 mg BID ORAL 05/07/18 18:00 06/06/18 17:59 05/14/18 09:25 Dextrose (Dextrose 50%) 25 ml Q30M PRN IV Hypoglycemia 05/06/18 23:00 05/23/18 22:59 Dextrose (Dextrose 50%) 50 ml Q30M PRN IV Hypoglycemia 05/06/18 23:00 05/23/18 22:59 Diltiazem HCl (Cardizem) 90 mg EVERY 8 HOURS ORAL 05/07/18 06:00 06/01/18 13:59 05/14/18 14:58 Docusate Sodium (Colace) 100 mg TWICE A DAY ORAL 05/07/18 09:00 05/24/18 08:59 05/13/18 09:45 Epoetin Yung (Procrit (for ESRD on dialysis)) 10,000 units SUN-SUN-SUN SUBQ 05/13/18 21:00 05/29/18 20:59 05/13/18 22:19 Finasteride (Proscar) 5 mg DAILY ORAL 05/07/18 09:00 05/24/18 08:59 05/14/18 09:25 Gabapentin (Neurontin) 300 mg DAILY ORAL 05/07/18 09:00 05/24/18 08:59 05/14/18 09:25 Heparin Sodium (Porcine) (Heparin Sod 1000 units/ml 10ml) 500 unit ONCE IV 05/14/18 15:00 05/14/18 23:59 Heparin Sodium (Porcine) (Heparin Sod 1000 units/ml 10ml) 2,000 unit ONCE PRN IV FOR HD USE ONLY 05/13/18 15:15 05/18/18 15:14 Insulin Aspart (NovoLOG) BEFORE MEALS AND HS SUBQ 05/07/18 06:30 05/24/18 06:29 05/12/18 21:20 Ipratropium [place] (Atrovent) 500 mcg Q4H PRN HHN Shortness of Breath 05/12/18 07:45 05/17/18 07:44 05/14/18 02:20 Meropenem 500 mg/ Sodium Chloride 55 ml @ 110 mls/hr Q24H IVPB 05/07/18 21:00 06/04/18 23:00 05/13/18 22:19 Pantoprazole (Protonix) 40 mg ACBREAKFAST ORAL 05/07/18 06:30 06/03/18 06:29 05/14/18 06:03 Polyethylene Glycol (Miralax) 17 gm BEDTIME ORAL 05/12/18 21:00 06/11/18 20:59 05/12/18 21:18 Sodium Chloride 1,000 ml @ 500 mls/hr Q2H PRN IVLG sbp<90 during hd 05/14/18 14:48 05/14/18 23:59 Tamsulosin HCl (Flomax) 0.4 mg BEDTIME ORAL 05/07/18 21:00 05/23/18 23:44 05/13/18 22:18 Vancomycin HCl (Vanco rx to dose) 1 ea DAILY PRN MISC Per rx protocol 05/07/18 09:00 06/04/18 23:00 Vitamin B Complex/ Vit C/Folic Acid (Nephrovite) 1 tab DAILY ORAL 05/07/18 09:00 05/26/18 08:59 05/14/18 09:26 Warfarin Sodium (Coumadin per pharmacy) 1 ea DAILY PRN MISC Per rx protocol 05/14/18 15:15 06/13/18 15:14 Warfarin Sodium (Coumadin) 6 mg ONCE ONCE ORAL 05/14/18 18:00 05/14/18 18:01 Jaime Casey M.D. May 14, 2018 17:23
--- NOTE | 2018-05-14 17:45 | NUR ---
NURSE NOTES: Spoke to Hellen, charge nurse from [facility]. There was a bed opening for [facility] at [id number]. Notified charge nurse and will contact primary MD.
[2018-05-14] MEDS ORDERED: Warfarin Sodium 3mg ORAL ONE (18:00)
--- NOTE | 2018-05-14 18:09 | NUR ---
NURSE NOTES: 6pm: Spoke to Dr. Sewell about [facility] room opening. States patient can go to [facility] if Dr. lPatt states he is cleared for discharge. 6:10pm: Spoke to Dr. Platt. Dr. Platt states, "Patient is able to go to [facility]." Discharge process planning will continue.
--- NOTE | 2018-05-14 19:15 | NUR ---
NURSE NOTES: 1914: Gave information for patient to be discharge to [facility]. Patient stated his abdomen felt hard. After assessment, his abdomen felt rigid than this morning. To note, his posterior puncture wound on right chest is not bleeding and dressing is intact. Patient CPAP was applied because he stated he did not want the o2 NC. On room air, it was 70% pulse ox. On CPAP on 100% pulse ox. 19:30: Page Dr. Platt to update. Endorsed to [facility] POON.
--- NOTE | 2018-05-14 19:22 | General Progress Note ---
Assessment/Plan Assessment/Plan # DVT of the deep veins superficial and politeal of the left leg, thrombocytopenia likely due to hep B chronic status --> VQ scan shows low probability of PE --> remains with anemia and low platelets therefore contraindication for anticoagulation --> will hold off on IVC filter --> continue coumadin inr goal 2-3 --> Cards and pulm recs appreciated as well as renal, vasc --> only if h/h drops, reconsider ivc filter, but currently doing well on coumadin # Thrombocytopenia -- plt goal >20k, transfuse as required, hepatitis B chronic infection --> plt trend in the 66k-->63k-->58k-->60k-->120k-->170k --> hep B noted and if no change in plt, consider anticoagulation --> coumadin okay to continue # Anemia of iron deficiency --> started on iron and epogen --> anemia panel has been reviewed --> hgb goal >7, transfuse as needed --> peripheral smear to be reviewed # Chronic hepatitis B -- appears to be chronic though need to confirm --> hep b surface antigen is postiive which means has chronic hepatitis B --> hep B surface antibody negative which means does not have immunity # Acute CHF exacerbation/pulmonary edema --> as per pulm # COPD w/o obvious exacerbation # CHU # ESRD on HD --> hd as per renal # Hx multiple amputations # Diabetic foot infection --> as per ID Time of note does not necessarily reflect time of encounter Greatly appreciate consultation! Subjective Constitutional: Denies: no symptoms, chills, diaphoresis, fever, malaise, weakness, other HEENT: Denies: no symptoms, eye pain, blurred vision, tearing, double vision, ear pain, ear discharge, nose pain, nose congestion, throat pain, throat swelling, mouth pain, mouth swelling, other Cardiovascular: Denies: no symptoms, chest pain, edema, irregular heart rate, lightheadedness, palpitations, syncope, other Respiratory: Denies: no symptoms, cough, orthopnea, shortness of breath, SOB with excertion, SOB at rest, sputum, stridor, wheezing, other Gastrointestinal/Abdominal: Denies: no symptoms, abdomen distended, abdominal pain, black stools, tarry stools, blood in stool, constipated, diarrhea, difficulty swallowing, nausea, poor appetite, poor fluid intake, rectal bleeding , vomiting, other Genitourinary: Denies: no symptoms, burning, discharge, frequency, flank pain, hematuria, incontinence, pain, urgency, other Neurologic/Psychiatric: Denies: no symptoms, anxiety, depressed, emotional problems, headache, numbness, paresthesia, pre-existing deficit, seizure, tingling, tremors, weakness, other Endocrine: Denies: no symptoms, excessive sweating, flushing, intolerance to cold, intolerance to heat, increased hunger, increased thirst, increased urine, unexplained weight gain, unexplained weight loss, other Hematologic/Lymphatic: Denies: no symptoms, anemia, easy bleeding, easy bruising, other Allergies: Coded Allergies: NO KNOWN DRUG ALLERGIES (Verified Allergy, Unknown, 03/06/18) Subjective 04/26: no events, potential plan for ivc f on sunday.12: no further ivc filter planned, started on coumadin inr goal 2-3 04/28: on iron and epogen dw Dr. Harper, continue as per his recs 04/29: awake and comfortable, HD today, On BIPAP and Oxygen. No new events. 04/30: Pt is seen by bedside, Platelets rising, 101 today. Coumadin started. Sleeping with BiPAP, HD tomorrow. 05/01: Pt was transferred to ICU for SVT on BIPAP, complains of less pain and swelling in his left foot, getting HD. 05/02: remains inthe icu, nsr at this time, tolerating coumadin, h/h relatively stable, plt better 05/03: has hepatitis Bs antigen and the ab is negative which means he doesn't have immunity, on coumadin, iron, procrit 05/07: Pt is seen by bedside, awake and alert, getting HD , no events 05/08: no events, no night sweats, tolerating anticoag well 05/09: Pt is awake and comfortable, on bipap, no acute distress. 05/10: Pt is seen by bedside, had CT today, no events 05/11: seen by bedside, awake, comfortable, lying in bed, on BIPAP, less congested, less pain and swelling in his left foot. hgb 7.5, plt 117 05/13: seen by bedside awake, on venturi mask, Thoracentesis cancelled today as INR was 2.5 yesterday, plt 119, hgb 8. 05/14: Pt is awake and comfortable, laying in bed, on BIPAP, less congested and less pain and swelling in his left foot, plt 107, hgb 7.8 Objective Last 24 Hour Vital Signs Date Time Temp Pulse Resp B/P (MAP) Pulse Ox O2 Delivery O2 Flow Rate FiO2 05/14/18 18:57 130/68 05/14/18 16:02 87 05/14/18 16:00 97.4 98 21 130/68 (88) 94 05/14/18 14:58 98 118/74 05/14/18 14:15 97.6 98 19 118/74 (89) 94 05/14/18 12:00 97.7 87 19 124/72 (89) 98 05/14/18 10:12 97.5 05/14/18 09:25 132/76 05/14/18 08:33 Bi-pap 45.0 Bi-pap Bi-pap 05/14/18 08:00 97.5 89 19 132/76 (94) 98 05/14/18 07:44 95 05/14/18 06:02 97 157/78 05/14/18 05:08 86 20 98 Facial 45 05/14/18 04:00 98.5 97 20 157/78 (104) 96 05/14/18 04:00 99 05/14/18 03:43 89 26 Bi-pap 45 05/14/18 02:27 73 19 98 Facial 45 05/14/18 02:20 73 18 93 Nasal Cannula 5.0 40 05/14/18 02:20 72 18 93 05/14/18 01:13 95 19 97 Facial 45 05/14/18 00:00 101 05/14/18 00:00 98.0 105 20 164/119 (134) 100 05/13/18 22:18 103 124/82 05/13/18 21:00 Bi-pap 45.0 Bi-pap Bi-pap 05/13/18 20:00 103 05/13/18 20:00 98.6 103 20 124/82 (96) 99 Intake and Output 05/13/18 05/14/18 18:59 06:59 Intake Total 360 ml 120 ml Balance 360 ml 120 ml Intake Oral 360 ml 120 ml # Voids 1 # Bowel Movements 1 1 Laboratory Tests 05/14/18 08:30: White Blood Count 5.2, Red Blood Count 2.80L, Hemoglobin 7.8L, Hematocrit 26.3L , Mean Corpuscular Volume 94, Mean Corpuscular Hemoglobin 28.0, Mean Corpuscular Hemoglobin Concent 29.9L, Red Cell Distribution Width 18.5H, Platelet Count 107L, Mean Platelet Volume 6.0L, Neutrophils (%) (Auto) , Lymphocytes (%) (Auto) , Monocytes (%) (Auto) , Eosinophils (%) (Auto) , Basophils (%) (Auto) , Differential Total Cells Counted 100, Neutrophils % ( Manual) 80H, Lymphocytes % (Manual) 6L, Monocytes % (Manual) 10, Eosinophils % ( Manual) 4H, Basophils % (Manual) 0, Band Neutrophils 0, Platelet Estimate DecreasedL, Platelet Morphology Normal, Hypochromasia 2+, Anisocytosis 2+, Prothrombin Time 16.0H, Prothromb Time International Ratio 1.6H, Sodium Level 136, Potassium Level 4.2, Chloride Level 96L, Carbon Dioxide Level 30, Anion Gap 11, Blood Urea Nitrogen 68H, Creatinine 9.1H, Estimat Glomerular Filtration Rate 7.2, Glucose Level 132H, Calcium Level 9.1 Height (Feet): 5 Height (Inches): 7.00 Weight (Pounds): 279 Objective Gen: NAD HEAD AND NECK: No JVD. LUNGS: Decreased breath sounds. CARDIOVASCULAR: Regular S1 and S2 with no gallop. ABDOMEN: Soft. EXTREMITIES: Status post multiple amputations, 2+ lower extremity edema. L thigh shunt Juve Soto MD May 14, 2018 19:22
--- NOTE | 2018-05-14 19:30 | NUR ---
NURSE NOTES: Report received from David POON. Pt is resting in bed in stable condition. Pt c/o abdominal "pain and fullness" s/p thoracentesis today. No active bleeding noted from site. Pt abdomen rigid to palpation. Bowel sounds noted to be active in all four quadrants. Last reported BM 05/13/18 per patient. VSS - BP: 131/80, P: 102, T: 97.0, O2 sat: 70% on RA. Pt placed on CPAP PRN per orders and O2 sat 100%. Pending return call from MD Platt for further instructions. IV site asymptomatic, patent, and intact. Bed in lowest position with brake engaged, side rails up x2 and bed alarm on. Call light and side table placed within reach. Will continue to monitor.
--- NOTE | 2018-05-14 20:00 | NUR ---
NURSE NOTES: MD Platt return call and informed of patient condition. Per MD Platt, order STAT KUB and CXR and contact MD Pinedo to notify. Orders noted and carried out.
--- NOTE | 2018-05-14 20:17 | NUR ---
NURSE NOTES: MD Pinedo notified of patient condition. Per MD, agree with STAT KUB order. Pending discharge for imaging results and clearance from MD Platt and MD Pinedo.
--- NOTE | 2018-05-14 20:30 | NUR ---
NURSE NOTES: Hellen ([phone]) called to request update on status of patient discharge. Informed Hellen that we are pending STAT imaging results and clearance for discharge and will keep her updated with plan of care and ETA.
--- NOTE | 2018-05-14 20:46 | NUR ---
NURSE NOTES: Radiology at bedside to perform STAT imaging. Per industrial cleaning technician, reports should be ready in about half an hour. Pt in stable condition. Will f/u as appropriate.
--- NOTE | 2018-05-14 20:53 | NUR ---
NURSE NOTES: MD Sewell called for update on patient. Per MD, follow up with pulmonology and GI for clearance then d/c to [facility] per care plan. Pt supposed to be going to [address] at [facility]. Will continue communication with Hellen ([phone]) for ETA for discharge if cleared.
[2018-05-14] MEDS: Miralax 17gm pkt ORAL SCH (21:00)
[2018-05-14] MEDS: Tamsulosin 0.4mg cap ORAL SCH (21:41)
[2018-05-14] MEDS: Meropenem 500 MG in NS 55 ML IVPB SCH (21:41)
--- NOTE | 2018-05-14 21:45 | NUR ---
NURSE NOTES: Cassia, receiving RN for pt at [facility], called for update on discharge planning and ETA for patient. Cassia updated and informed that we will call back once imaging has been resulted.
--- NOTE | 2018-05-14 22:04 | NUR ---
NURSE NOTES: Reports faxed from radiology. Will contact MD Platt and MD Pinedo to relay results.
--- NOTE | 2018-05-14 22:10 | NUR ---
NURSE NOTES: Message left for MD Pinedo to relay results of STAT KUB. Awaiting call back for discharge clearance.
--- NOTE | 2018-05-14 22:18 | NUR ---
NURSE NOTES: Message left for MD Platt to relay results of STAT imaging. Awaiting call back for further instructions.
--- NOTE | 2018-05-14 22:27 | NUR ---
NURSE NOTES: MD Platt return call and read results of STAT CXR and KUB. Per MD Platt, pt cleared for discharge from pulmonology perspective. Pending call from MD Pinedo for GI clearance.
--- NOTE | 2018-05-14 22:37 | NUR ---
NURSE NOTES: 2nd attempt to contact MD Pinedo to relay results of STAT KUB. Message left requesting call back.
--- NOTE | 2018-05-14 22:49 | NUR ---
NURSE NOTES: x2 attempts to contact MD Krueger to relay results of STAT KUB. Unable to contact MD Krueger at this time as MD Pinedo covering. Unable to contact MD Pinedo at this time.
--- NOTE | 2018-05-14 22:49 | General Progress Note ---
Assessment/Plan Assessment/Plan Assessment - Heme (+) stools - Anemia and thrombocytopenia - DVT - on anticoagulation - Hep B S Ag (+) - DM - PVD - CHU - PVD / amputation - low platelets - Poor Px Recommendations - Patient appropriately has declined GI w/u - Will follow conservatively - Monitor CBC while on anticoagulation - Replace Fe IV - PPI - if H&H declines on anticoagulation, may need to reconsider IVC filter - Check HBV quantitative PCR - d/c planning per PMD Subjective Allergies: Coded Allergies: NO KNOWN DRUG ALLERGIES (Verified Allergy, Unknown, 03/06/18) Subjective eating OK no abd pain no events Objective Last 24 Hour Vital Signs Date Time Temp Pulse Resp B/P (MAP) Pulse Ox O2 Delivery O2 Flow Rate FiO2 05/14/18 21:43 105 125/90 05/14/18 20:00 98.8 105 18 125/90 (102) 100 05/14/18 19:42 99 18 99 Facial 45 05/14/18 19:41 Bi-pap 45 05/14/18 19:40 98 Bi-pap 45 05/14/18 18:57 130/68 05/14/18 16:02 87 05/14/18 16:00 97.4 98 21 130/68 (88) 94 05/14/18 14:58 98 118/74 05/14/18 14:15 97.6 98 19 118/74 (89) 94 05/14/18 12:00 97.7 87 19 124/72 (89) 98 05/14/18 10:12 97.5 05/14/18 09:25 132/76 05/14/18 08:33 Bi-pap 45.0 Bi-pap Bi-pap 05/14/18 08:00 97.5 89 19 132/76 (94) 98 05/14/18 07:44 95 05/14/18 06:02 97 157/78 05/14/18 05:08 86 20 98 Facial 45 05/14/18 04:00 98.5 97 20 157/78 (104) 96 05/14/18 04:00 99 05/14/18 03:43 89 26 Bi-pap 45 05/14/18 02:27 73 19 98 Facial 45 05/14/18 02:20 73 18 93 Nasal Cannula 5.0 40 05/14/18 02:20 72 18 93 05/14/18 01:13 95 19 97 Facial 45 05/14/18 00:00 101 05/14/18 00:00 98.0 105 20 164/119 (134) 100 Intake and Output 05/13/18 05/14/18 18:59 06:59 Intake Total 360 ml 120 ml Balance 360 ml 120 ml Intake Oral 360 ml 120 ml # Voids 1 # Bowel Movements 1 1 Laboratory Tests 05/14/18 08:30: White Blood Count 5.2, Red Blood Count 2.80L, Hemoglobin 7.8L, Hematocrit 26.3L , Mean Corpuscular Volume 94, Mean Corpuscular Hemoglobin 28.0, Mean Corpuscular Hemoglobin Concent 29.9L, Red Cell Distribution Width 18.5H, Platelet Count 107L, Mean Platelet Volume 6.0L, Neutrophils (%) (Auto) , Lymphocytes (%) (Auto) , Monocytes (%) (Auto) , Eosinophils (%) (Auto) , Basophils (%) (Auto) , Differential Total Cells Counted 100, Neutrophils % ( Manual) 80H, Lymphocytes % (Manual) 6L, Monocytes % (Manual) 10, Eosinophils % ( Manual) 4H, Basophils % (Manual) 0, Band Neutrophils 0, Platelet Estimate DecreasedL, Platelet Morphology Normal, Hypochromasia 2+, Anisocytosis 2+, Prothrombin Time 16.0H, Prothromb Time International Ratio 1.6H, Sodium Level 136, Potassium Level 4.2, Chloride Level 96L, Carbon Dioxide Level 30, Anion Gap 11, Blood Urea Nitrogen 68H, Creatinine 9.1H, Estimat Glomerular Filtration Rate 7.2, Glucose Level 132H, Calcium Level 9.1 Height (Feet): 5 Height (Inches): 7.00 Weight (Pounds): 279 Objective Obese AA man NCAT coarse BS, power RR obese abd nonfocal (+) UE amputations Bee Krueger MD May 14, 2018 22:49
--- NOTE | 2018-05-14 23:17 | NUR ---
NURSE NOTES: MD Sewell notified unable to contact MD Pinedo to relay results. Per Hellen at [facility] if pt is not transferred tonight they are unable to guarantee bed placement in AM. MD Sewell informed of situation and relayed STAT imaging results. Per ramakrishna Mayer to discharge to [facility] tonight. Discharge order in place.
--- NOTE | 2018-05-14 23:32 | NUR ---
NURSE NOTES: [facility] called for patient transport to [facility]. ETA for pick-up is 10-15 minutes.
--- NOTE | 2018-05-14 23:38 | NUR ---
NURSE NOTES: Report given to Cassia POON at [facility] ( , ). Informed that pick-up time for transport is 10-15 minutes.
--- NOTE | 2018-05-14 23:45 | NUR ---
NURSE NOTES: [facility] ambulance on site for patient transport.
--- NOTE | 2018-05-14 23:45 | NUR ---
NURSE NOTES: Pictures taken of wounds upon discharge and uploaded to chart per protocol. Dressing changed per orders.
[2018-05-15] VITALS: BP 131/72
--- NOTE | 2018-05-15 | NUR ---
NURSE NOTES: Report given to Alisha Wang, EMT with [id number] with [facility]. Pt in stable condition upon discharge. Pt is awake, alert, and oriented x4. Pt is on 6L O2 via nasal cannula and O2 saturation is noted to be 100%. No acute respiratory distress noted. IV site is asymptomatic, patent, and intact. IV site left in place per request of flakita Antony RN at [facility]. Pt transferred by staff members from [facility] to [facility] without incidence. channeler insole removed, ID band removed. Belongings list checked with patient at bedside and belongings sent with patient upon transfer. VSS: BP - 131/72, P: 94 (NSR), T: 97.5F, R: 20.
--- NOTE | 2018-05-15 13:30 | Diagnostic Imaging Report ---
Indication: Abdominal pain Comparison: None Single view of the abdomen obtained Findings: The study is nondiagnostic with regard to the abdomen. The this is due to large body habitus and soft tissue attenuation. Heart appears enlarged. There is interstitial edema. IMPRESSION: Nondiagnostic exam
--- NOTE | 2018-05-15 13:31 | Diagnostic Imaging Report ---
Indication: Dyspnea Comparison: 05/14/2018 earlier A single view chest radiograph was obtained. Findings: Pulmonary edema again demonstrated moderate to severe. Heart is mildly enlarged. IMPRESSION: No change from the prior exam
--- NOTE | 2018-05-16 16:58 | Discharge Summary ---
Discharge Summary Discharge Summary _ DATE OF ADMISSION: 04/23/2018 DATE OF DISCHARGE: 05/15/2018 DISCHARGED BY: Dr. Moe Sewell CONSULTANTS: Dr. Bee Perdomo BRIEF HOSPITAL COURSE: Vision is a 67-year-old gentleman with history of type 2 diabetes, history of renal failure on hemodialysis, history of peripheral vascular disease and history of osteomyelitis. He is status post amputation to the toes in the left lower extremity and was followed by Dr. Raygoza. He was sent to [facility] ED secondary to left metatarsal surgical wound infection with multiple organisms and failing flap; with possible underlying metatarsal bone osteomyelitis and new Achilles open tendon wound. Patient underwent amputation on January 24, 2018, due to severely infected toes with osteomyelitis at [facility]. There he was treated with vancomycin and a skin flap was placed to close the wound. He was discharged on Keflex. He went home after wards, he had swelling and pain and had dehiscence of the wound with drainage. He was seen by Dr. Raygoza at the wound care clinic. He underwent surgical debridement and cultures were done which revealed multiple organisms. MRI of the left foot showed bone loss, concerning for osteomyelitis. There was interim development of gas bubbles in the soft tissue distal to the first metatarsal bony stump. There was persistent edema of the muscular compartment, likely myositis. He was then admitted for IV antibiotics. ID specialist was consulted. Patient had acute osteomyelitis of the bone. He was given meropenem and vancomycin. Keyboarding Teacher was consulted. Wound care was rendered. Patient has a history of end-stage renal failure, he was continued on inpatient hemodialysis. He had elevated troponin 0 0.57 and 0.47. Deputy Felony Clerk was consulted. Troponin elevation could be due to renal failure. Patient did not have any chest pain. He was noted to have elevated BNP. Echocardiogram done showed EF of 60-65%. Right ventricular systolic pressure 47 mmHg, consistent with moderate pulmonary hypertension. He was given calcium channel blockers and Lasix. Patient had obstructive sleep apnea. He was followed by comber fixer. He was placed on CPAP. He was given duo nebs every 6 hours. Venous duplex of lower extremity showed acute DVT on the left leg. VQ scan showed low probability for PE. Patient was anemic and was noted to have thrombocytopenia. Display Coordinator was consulted. Per hematology recommendation, recommend IVC filter. Vascular surgeon was consulted. He was recommended need to continue lifelong anticoagulation. IVC filter was not recommended as this would limit his IVC outflow of his groin shunt and may thrombose his access. Patient has superior vena cava syndrome with very limited venous access for hemodialysis therapy. Patient was then started on heparin drip and bridged with Coumadin. GI was also consulted. She had had heme-positive stools and anemia. Required anticoagulation in the setting of acute DVT. Was not interested with GI workup. He was given proton pump inhibitors. He was given iron supplementation. Blood levels were monitored. On 05/01/2018, patient was short of breath and went into SVT at a rate of 170. He was transferred to ICU and was started on Cardizem drip. He eventually converted to sinus rhythm. Cardizem drip was eventually discontinued. He was transitioned to Cardizem p.o. every 8 hours. Duoneb was changed to albuterol. On 05/04/2018, left Achilles tendon and lateral stump ulcer was debrided to the level of tendon. Debridement was excisional using sharp method. Left medial stump ulcer underwent excisional debridement to the level of subcutaneous using sharp debridement. He was continued on wound care. Left stump wound grew MRSA and Enterobacter. He was continued on meropenem and vancomycin. Recommend to continue treatment for 6 weeks. He was continued on wound care. He was noted to have hepatitis B surface antigen positive. Suspect possibly from previous vaccination. Awaiting viral load. He had acute onset of dyspnea. He was continued on BiPAP support. Chest CT done on 05/10/2018 showed moderate to large right effusion. Patient was ordered thoracentesis, however, patient was on Coumadin with elevated INR. He was given vitamin K. INR levels were monitored. Subsequently, on 05/14/2018 , he underwent ultrasound-guided thoracentesis thesis of the right lung yielding 500 mL of fluid. Chest x-ray postprocedure was negative for pneumothorax. Chest x-ray done on 05/15/2018 showed pulmonary edema. Patient will benefit from transfer to [facility]. He was eventually discharged to [facility]. FINAL DIAGNOSES: Acute osteomyelitis of metatarsal bone of the left foot with MRSA and Enterobacter Acute DVT of the left leg Acute exacerbation of diastolic CHF Acute respiratory failure requiring BiPAP Achilles tendon infection Diabetic foot infection Lower left extremity cellulitis End-stage renal disease on hemodialysis Peripheral vascular disease Hepatitis B surface antigen positive Acute dyspnea due to fluid overload Pleural effusion, status post right lung thoracentesis Anemia of iron deficiency Thrombocytopenia Obstructive sleep apnea Diabetes mellitus Troponin leak due to renal failure Sustained SVT at a rate of 170s Nonsustained V. tach Morbid obesity Status post excisional debridement of stump ulcer DISPOSITION: DC to LTAC. I have been assigned to complete a discharge summary on this account, I was not involved with the patient's management. Evelia Parmar NP May 16, 2018 16:58
== END 2018-05-15 00:25 | DRG 856 ==
LOC: EDBEDREQ 17:13 → EMR 17:57 → EDBEDREQ 18:18 → 3E 19:18 → 4E 04-24 09:52 → 2E 04-28 11:39 → ICU 05-01 03:39 → 2W 05-02 18:13 → 2E 05-06 22:29
PROC: 5A1D70Z Performance of Urinary Filtration, Intermittent, Less than 6 Hours Per Day (ICD-10-PCS; principal; 2018-04-24)
PROC: 0LBT0ZZ Excision of Left Ankle Tendon, Open Approach (ICD-10-PCS; 2018-05-04)
PROC: 0W993ZZ Drainage of Right Pleural Cavity, Percutaneous Approach (ICD-10-PCS; 2018-05-14)
DX: T81.49XA Infection following a procedure, other surgical site, initial encounter (principal); N18.6 End stage renal disease; I50.31 Acute diastolic (congestive) heart failure; J96.00 Acute respiratory failure, unspecified whether with hypoxia or hypercapnia; L03.116 Cellulitis of left lower limb; Z68.41 Body mass index [BMI] 40.0-44.9, adult; M86.172 Other acute osteomyelitis, left ankle and foot; M60.07 Infective myositis, ankle, foot and toes; I13.2 Hypertensive heart and chronic kidney disease with heart failure and with stage 5 chronic kidney disease, or end stage renal disease; I82.402 Acute embolism and thrombosis of unspecified deep veins of left lower extremity; I47.1 Supraventricular tachycardia; J90 Pleural effusion, not elsewhere classified; B18.1 Chronic viral hepatitis B without delta-agent; E11.621 Type 2 diabetes mellitus with foot ulcer; E11.22 Type 2 diabetes mellitus with diabetic chronic kidney disease; E66.01 Morbid (severe) obesity due to excess calories; B96.1 Klebsiella pneumoniae [K. pneumoniae] as the cause of diseases classified elsewhere; B95.61 Methicillin susceptible Staphylococcus aureus infection as the cause of diseases classified elsewhere; E11.40 Type 2 diabetes mellitus with diabetic neuropathy, unspecified; E11.21 Type 2 diabetes mellitus with diabetic nephropathy; D69.6 Thrombocytopenia, unspecified; G47.33 Obstructive sleep apnea (adult) (pediatric); D50.9 Iron deficiency anemia, unspecified; Z99.2 Dependence on renal dialysis; J44.9 Chronic obstructive pulmonary disease, unspecified; Z72.0 Tobacco use; F12.90 Cannabis use, unspecified, uncomplicated; H10.33 Unspecified acute conjunctivitis, bilateral; I73.9 Peripheral vascular disease, unspecified; R79.89 Other specified abnormal findings of blood chemistry
CPT/HCPCS: 36415; 36600; 71045; 71250; 74018; 76942; 78579; 78580; 80048; 80053; 80061; 80202; 82247; 82248; 82270; 82607; 82728; 82803; 82962; 83010; 83020; 83036; 83540; 83550; 83605; 83615; 83880; 84100; 84153; 84439; 84443; 84484; 85007; 85025; 85060; 85610; 85730; 86703; 86705; 86709; 86803; 86850; 86900; 86901; 86920; 87040; 87070; 87081; 87181; 87205; 87340; 87516; 87517; 93005; 93306; 93925; 93970; 94640; 94660; 94664; 94760; 96365; 96366; 99285; A9503; J1815; J3430; J7620